=== PATIENT | male | born 1955 | race African-American/Black ===

== ENCOUNTER 2024-06-05 05:48 | Emergency (ER) | payer MEDICARE, OTHER ==
[2024-06-05 05:58] VITALS: TEMP 97.9
--- NOTE | 2024-06-05 06:09 | ED ---
Skin/Abscess/FB HPI - General Chief complaint: Skin/Abscess/Foreign Body Stated complaint: Lip Infection Time Seen by Provider: 06/05/24 05:58 Source: patient, RN notes reviewed Mode of arrival: ambulatory Limitations: no limitations - History of Present Illness Initial comments: 68-year-old male presents emergency department with chief complaint of lip swelling, infection. He states that he had a sore on it which caused his lip to swell and he has an open wound. He states that there is some drainage from the wound. He denies any blood pressure medication which includes lisinopril or losartan. Patient states he also has a red spot on his chest by his left nipple. States no drainage states that sore to the touch but states its at the surface. Patient denies any fevers or chills no difficulty swallowing no other associated symptoms. - Related Data Home Medications Medication Instructions Recorded Confirmed Asthmatic Twist 1 puff INHALATION BID 05/26/15 05/26/15 Inhaler(Unknowndose) HYDROcodone/APAP 10-325MG [[place] 1 each PO TID PRN 05/26/15 05/26/15 10] Ibuprofen [Motrin] 200 - 400 mg PO Q6HR PRN 05/26/15 05/26/15 Insulin Glargine [Lantus] 20 unit SQ HS 05/26/15 05/26/15 Insulin Lispro [humaLOG Kwikpen] 0 units SQ TID-W/MEALS PRN 05/26/15 05/26/15 Ipratropium/Albuterol Sulfate 1 puff INHALATION QID 05/26/15 05/26/15 [Combivent Respimat Inhaler] Multivitamins, Thera [Theragran] 1 each PO DAILY 05/26/15 05/26/15 Omeprazole [PriLOSEC] 20 mg PO BID 05/26/15 05/26/15 carvediloL [Coreg] 3.125 mg PO BID 05/26/15 05/26/15 cloNIDine HCL [Catapres] 0.1 mg PO TID 05/26/15 05/26/15 Previous Rx's Medication Instructions Recorded clindamycin HCL 300 mg PO QID #40 cap 06/05/24 Allergies Allergy/AdvReac Type Severity Reaction Status Date / Time morphine Allergy Unknown Itching Verified 06/05/24 05:58 tramadol Allergy Unknown Itching Verified 06/05/24 05:58 Review of Systems ROS Statement: Those systems with pertinent positive or pertinent negative responses have been documented in the HPI. ROS Other: All systems not noted in ROS Statement are negative. Past Medical History Past Medical History: Chest Pain / Angina, Diabetes Mellitus, GERD/Reflux, Hypertension Additional Past Medical History / Comment(s): BACK PAIN, POSITIVE FOR BLOOD IN STOOL., SLIGHT [place]OSS. History of Any Multi-Drug Resistant Organisms: None Reported Past Surgical History: Hernia Repair Additional Past Surgical History / Comment(s): NASAL SURGERY, RT ANKLE PINS & SCREWS. Past Anesthesia/Blood Transfusion Reactions: No Reported Reaction Past Psychological History: Depression Past Alcohol Use History: Occasional Past Drug Use History: None Reported - Past Family History Mother Family Medical History: No Reported History General Exam Limitations: no limitations General appearance: alert, in no apparent distress Head exam: Present: atraumatic, normocephalic, normal inspection Eye exam: Present: normal appearance, PERRL, EOMI. Absent: scleral icterus, conjunctival injection, periorbital swelling ENT exam: Present: mucous membranes moist. Absent: normal oropharynx (Swollen lower lip with large open wound on the right side of the lower lip extending from the exterior to the anterior aspect no other lesions are noted no swelling of the tongue, submandibular region or posterior pharynx) Neck exam: Present: normal inspection, full ROM. Absent: tenderness, meningismus, lymphadenopathy Respiratory exam: Present: normal lung sounds bilaterally. Absent: respiratory distress, wheezes, rales, rhonchi, stridor Cardiovascular Exam: Present: regular rate, normal rhythm, normal heart sounds. Absent: systolic murmur, diastolic murmur, rubs, gallop, clicks Skin exam: Present: warm, dry, intact, normal color, other (1 cm abscess left chest 4 to 5 o'clock position firm, nonfluctuant). Absent: rash Course Vital Signs 06/05/24 06/05/24 05:56 06:16 Temperature 97.9 F Pulse Rate 85 80 Respiratory 18 16 Rate Blood Pressure 149/76 158/84 O2 Sat by Pulse 98 100 Oximetry Medical Decision Making - Medical Decision Making Was pt. sent in by a medical professional or institution (, PA, AMBULETTE DRIVER, urgent care, hospital, or halfway...) When possible be specific @ -No Did you speak to anyone other than the patient for history (EMS, parent, family, police, friend...)? What history was obtained from this source @ -No Did you review nursing and triage notes (agree or disagree)? Why? @ -I reviewed and agree with nursing and triage notes Were old charts reviewed (outside hosp., previous admission, EMS record, old EKG, old radiological studies, urgent care reports/EKG's, halfway records)? Report findings @ -No old charts were reviewed Differential Diagnosis (chest pain, altered mental status, abdominal pain women, abdominal pain men, vaginal bleeding, weakness, fever, dyspnea, syncope, headache, dizziness, GI bleed, back pain, seizure, CVA, palpatations, mental health, musculoskeletal)? @ -Angioedema, abscess, laceration, herpes zoster, abscess EKG interpreted by me (3pts min.). @ -None X-rays interpreted by me (1pt min.). @ -None done CT interpreted by me (1pt min.). @ -None done U/S interpreted by me (1pt. min.). @ -None done What testing was considered but not performed or refused? (CT, X-rays, U/S, labs)? Why? @ -None What meds were considered but not given or refused? Why? @ -None Did you discuss the management of the patient with other professionals (professionals i.e. , PA, AMBULETTE DRIVER, lab, RT, psych nurse, vp digital marketing social media and crm, jute bag cutting machine operator, teacher, logistics supply officer, community case manager)? Give summary @ -No Was smoking cessation discussed for >3mins.? @ -No Was critical care preformed (if so, how long)? @ -No Were there social determinants of health that impacted care today? How? (Homelessness, low income, unemployed, alcoholism, drug addiction, transportation, low edu. Level, literacy, decrease access to med. care, assisted, rehab)? @ -No Was there de-escalation of care discussed even if they declined (Discuss DNR or withdrawal of care, Hospice)? DNR status @ -No What co-morbidities impacted this encounter? (DM, HTN, Smoking, COPD, CAD, Cancer, CVA, ARF, Chemo, Hep., AIDS, mental health diagnosis, sleep apnea, morbid obesity)? @ -None Was patient admitted / discharged? Hospital course, mention meds given and route, prescriptions, significant lab abnormalities, going to OR and other pertinent info. @ -Discharged patient has a open wound, sore on his lower lip causing swelling appears to be underlying infection was started on clindamycin he also has what appears to be a 1 cm abscess nonfluctuant left-sided chest we discussed possibility and concern for breast cancer but felt less likely needs to have recheck in 48 hours possible ultrasound. Patient agrees to this plan. Undiagnosed new problem with uncertain prognosis? @ -No Drug Therapy requiring intensive monitoring for toxicity (Heparin, Nitro, Insulin, Cardizem)? @ -No Were any procedures done? @ -No Diagnosis/symptom? @ -Lower lip infection, cellulitis, abscess chest Acute, or Chronic, or Acute on Chronic? @ -Acute Uncomplicated (without systemic symptoms) or Complicated (systemic symptoms)? @ -Uncomplicated Side effects of treatment? @ -No Exacerbation, Progression, or Severe Exacerbation? @ -No Poses a threat to life or bodily function? How? (Chest pain, [place], [place], pneumonia, PE, COPD, DKA, ARF, appy, cholecystitis, CVA, Diverticulitis, Homicidal, Suicidal, threat to staff... and all critical care pts) @ -No Disposition Clinical Impression: Cellulitis of skin of lip, Open wound of lip, Abscess of chest wall Disposition: HOME SELF-CARE Condition: Stable Instructions (If sedation given, give patient instructions): Abscess (ED) Additional Instructions: Please return to the Emergency Department if symptoms worsen or any other concerns. Prescriptions: clindamycin HCL 300 mg PO QID #40 cap Is patient prescribed a controlled substance at d/c from ED?: No Referrals: [facility] [Primary Care Provider] - 1-2 days Time of Disposition: 06:09
[2024-06-05 06:18] VITALS: BP 158/84; PULSE 80; RESP 16
== END 2024-06-05 06:16 | disposition home or self-care (01) ==
LOC: EC 05:48
DX: S01.501A Unspecified open wound of lip, initial encounter (principal); L02.213 Cutaneous abscess of chest wall; L03.211 Cellulitis of face; Z88.5 Allergy status to narcotic agent; Z88.8 Allergy status to other drugs, medicaments and biological substances; X58.XXXA Exposure to other specified factors, initial encounter
CPT/HCPCS: 99283

== ENCOUNTER 2024-11-13 06:35 | Inpatient (IN) | payer MEDICARE ==
[2024-11-13 06:40] LABS: Glucose,Whole Blood >600 mg/dL (70-110)
--- NOTE | 2024-11-13 06:40 | ED ---
General Adult HPI <Johny Ren - Last Filed: 11/13/24 06:49> - General Source: family, RN notes reviewed, old records reviewed <Danie Hui - Last Filed: 11/13/24 14:06> - General Stated complaint: Stroke Time Seen by Provider: 11/13/24 06:36 - History of Present Illness Initial comments: Dictation was produced using Talknote dictation software. please excuse any gramma tical, word or spelling errors. Chief Complaint: 69-year-old male presents to the emergency department with altered mental status History of Present Illness: Patient 69-year-old male with unknown medical history. History present illness obtained from EMS. Patient was allegedly seen last normal last night. Unclear what time patient went to bed. EMS spoke with states that this morning he was found to be altered. He was found on the ground and very confused. He is allegedly alert and oriented x 4 at baseline. He does have medical problems however and EMS did not know what his symptoms are. Apparently he is not compliant with his medications. Patient confused not a good historian Unable to obtain ROS secondary to mental status (Johny Ren) - Related Data Home Medications Medication Instructions Recorded Confirmed No Known Home Medications 11/13/24 11/13/24 Allergies Allergy/AdvReac Type Severity Reaction Status Date / Time morphine Allergy Unknown Itching Verified 11/13/24 09:47 tramadol Allergy Unknown Itching Verified 11/13/24 09:47 Review of Systems ROS Other: All systems not noted in ROS Statement are negative. <Johny Ren - Last Filed: 11/13/24 06:49> ROS Other: All systems not noted in ROS Statement are negative. <Danie Hui - Last Filed: 11/13/24 14:06> ROS Statement: Those systems with pertinent positive or pertinent negative responses have been documented in the HPI. Past Medical History Past Medical History: Chest Pain / Angina, Diabetes Mellitus, GERD/Reflux, Hypertension Additional Past Medical History / Comment(s): BACK PAIN, POSITIVE FOR BLOOD IN STOOL., SLIGHT LAC [place]. History of Any Multi-Drug Resistant Organisms: None Reported Past Surgical History: Hernia Repair Additional Past Surgical History / Comment(s): NASAL SURGERY, RT ANKLE PINS & SCREWS. Past Anesthesia/Blood Transfusion Reactions: No Reported Reaction Past Psychological History: Depression Past Alcohol Use History: Occasional Past Drug Use History: None Reported - Past Family History Mother Family Medical History: No Reported History <Johny Ren - Last Filed: 11/13/24 06:49> General Exam <Johny Ren - Last Filed: 11/13/24 06:49> - General Exam Comments Initial Comments: PHYSICAL EXAM: General Impression: Alert and oriented x3, not in acute distress HEENT: Normocephalic atraumatic, extra-ocular movements intact, pupils equal and reactive to light bilaterally, mucous membranes moist. Cardiovascular: Heart regular rate and rhythm Chest: Able to complete full sentences, no retractions, no tachypnea Abdomen: abdomen soft, non-tender, non-distended, no organomegaly Musculoskeletal: Pulses present and equal in all extremities, no peripheral edema Motor: no focal deficits noted Neurological: CN II-XII grossly intact, drift of the left arm, no effort to gravity of the bilateral lower extremities, he is aphasic and mildly dysarthric. NIH score of 10 Skin: Intact with no visualized rashes Psych: Normal affect and mood (Johny Ren) Course <Johny Ren - Last Filed: 11/13/24 06:49> Vital Signs 11/13/24 11/13/24 11/13/24 06:37 07:50 08:15 Temperature 97.5 F L 97.4 F L 97.6 F Pulse Rate 113 H 101 H 97 Respiratory 20 22 24 Rate Blood Pressure 118/68 123/71 115/72 O2 Sat by Pulse 100 98 96 Oximetry 11/13/24 11/13/24 11/13/24 09:09 09:18 09:29 Temperature 97.6 F Pulse Rate 96 101 H 103 H Respiratory 28 H Rate Blood Pressure 118/66 O2 Sat by Pulse 98 Oximetry 11/13/24 11/13/24 11/13/24 10:00 11:26 12:05 Temperature 97.6 F 97.4 F L 97.6 F Pulse Rate 110 H 107 H 105 H Respiratory 24 14 24 Rate Blood Pressure 131/81 101/73 116/82 O2 Sat by Pulse 97 98 96 Oximetry 11/13/24 13:01 Temperature 97.5 F L Pulse Rate 105 H Respiratory 24 Rate Blood Pressure 105/71 O2 Sat by Pulse 97 Oximetry - Reevaluation(s) Reevaluation #1: 11/13/24 06:[address] Hensley at 6:41 AM. Patient not a candidate for thrombolytics. (Johny Ren) Procedures - Restraint - Face to Face Restraint Occurrence 1 Patient's Immediate Situation: Endangers self safety Patient's Reaction to the Intervention: Uncooperative Patient's Medical & Behavioral Condition: Awake, Alert Need to Continue or Terminate Restraint or Seclusion: Continue Face to Face Eval of Restraint Date: 11/13/24 Face to Face Eval of Restraint Time: 08:20 <Danie Hui - Last Filed: 11/13/24 14:06> Medical Decision Making <Johny Ren - Last Filed: 11/13/24 06:49> - Lab Data Result diagrams: 11/13/24 06:39 11/13/24 12:18 <Danie Hui - Last Filed: 11/13/24 14:06> - Medical Decision Making Was pt. sent in by a medical professional or institution (, PA, [employer] BUSINESS OBJECTS DEVELOPER, urgent care, hospital, or [place] [facility] [place]...) When possible be specific @ -No Did you speak to anyone other than the patient for history (EMS, parent, family, police, friend...)? What history was obtained from this source @ -EMS as described above. History obtained from the at the bedside. She appeared to be inebriated as well. Not quite a reliable historian however she states she did notice him altered this morning. She states she has history of diabetes ran out of his diabetes medications. States that he takes shots for his diabetes. Did you review nursing and triage notes (agree or disagree)? Why? @ -I reviewed and agree with nursing and triage notes Were old charts reviewed (outside hosp., previous admission, EMS record, old EKG, old radiological studies, urgent care reports/EKG's, [place] [facility] facility records)? Report findings @ -No old charts were reviewed Differential Diagnosis (chest pain, altered mental status, abdominal pain women, abdominal pain men, vaginal bleeding, musculoskeletal, weakness, fever, dyspnea, syncope, headache, dizziness, GI bleed, back pain, seizure, CVA, palpatations, mental health)? @ - Differential CVA: Ischemic stroke, hemorrhagic stroke, brain tumor, atypical migraine, Wernicke's encephalopathy, seizure, multiple sclerosis, meningitis, encephalitis, hypoglycemia, Guillain-Willard, electrolytes disturbance, myasthenia gravis.... This is not meant to be an all-inclusive list EKG interpreted by me (3pts min.). @ - X-rays interpreted by me (1pt min.). @ - CT interpreted by me (1pt min.). @ - U/S interpreted by me (1pt. min.). @ -None done What testing was considered but not performed or refused? (CT, X-rays, U/S, labs)? Why? @ -None What meds were considered but not given or refused? Why? @ -None Was smoking cessation discussed for >3mins.? @ -No Were there social determinants of health that impacted care today? How? (Homelessness, low income, unemployed, alcoholism, drug addiction, transportation, low edu. Level, literacy, decrease access to med. care, [facility], rehab)? @ -No Was there de-escalation of care discussed even if they declined (Discuss DNR or withdrawal of care, Hospice)? DNR status @ -No What co-morbidities impacted this encounter? (DM, HTN, Smoking, COPD, CAD, Cancer, CVA, ARF, Chemo, Hep., AIDS, mental health diagnosis, sleep apnea, morbid obesity)? @ -None Was patient admitted / discharged? Hospital course, mention meds given and route, prescriptions, significant lab abnormalities, going to OR and other pertinent info. @ -69-year-old male presents with altered mental status. Last known well was last night. Unclear what time that was. Vital signs upon arrival are within acceptable limits. Patient symptomatology concerning for acute CVA. Code stroke paged. Keep patient given NIH score of 2. Is not a candidate for thrombolytics due to unclear time of onset likely longer than 4-1/2 hours. Patient care signed out to Dr. Hui at 7 AM Did you discuss the management of the patient with other professionals (professionals i.e. , PA, [employer] BUSINESS OBJECTS DEVELOPER, lab, RT, psych nurse, sr. social media & mobile manager, roster clerk, teacher, chief sales officer, foster care case manager)? Give summary @ -No Was critical care preformed (if so, how long)? @ -Yes, 33 minutes Undiagnosed new problem with uncertain prognosis? @ -No Drug Therapy requiring intensive monitoring for toxicity (Heparin, Nitro, Insulin, Cardizem)? @ -No Were any procedures done? @ -No Diagnosis/symptom? Acute, or Chronic, or Acute on Chronic? Uncomplicated (without systemic symptoms) or Complicated (systemic symptoms)? @ -Altered mental status Side effects of treatment? @ -No Exacerbation, Progression, or Severe Exacerbation? @ -No Poses a threat to life or bodily function? How? (Chest pain, USA, DC, pneumonia, PE, COPD, DKA, ARF, appy, cholecystitis, CVA, Diverticulitis, Homicidal, Suicidal, threat to staff... and all critical care pts) @ -yes (Johny Ren) Patient signed out to me pending results of workup. Briefly, patient presented as a code stroke activated by the previous provider. Patient awoke with nonfocal deficits. Was not a tenecteplase candidate. Previous provider spoke with on-call neuro interventionalist Dr. Hensley. In agreement plan for CT and CTA. Patient also found to have a hyperglycemia in the setting of diabetes that is insulin dependent greater than 600. Vitals were within acceptable limits. I spoke with Dr. Hensley who contacted me following CT brain as well as CT angiogram of the head and neck completion. He reviewed both images and stated there is no large vessel occlusion or obvious CVA at this time. Recommended medical admission with aspirin and Lipitor and neurology consultation. CT brain and CTA of the head and neck interpreted by myself as well and I agree with Dr. Hensley's findings. Chest x-ray interpreted myself which reveals possible atypical pneumonia. Laboratory studies returned remarkable for a Accu- Chek with a sugar greater than 600, hemoconcentration with an elevated white blood cell count, hematocrit. There is a delay in obtaining remainder of laboratory studies as the patient's blood work hemolyzed.Patient's labs eventually returned remarkable for leukocytosis of 17 likely secondary to hemoconcentration as the patient does appear clinically extremely dehydrated. Patient is hyperkalemic with a potassium of 7.2, and acute renal failure with a BUN of 163 and creatinine 4.48. Blood sugar is 1276. Acetone negative. Negati ve ketones in the urine. Patient is not significantly acidotic at this time. Patient started on the HHS protocol, as it does appear that the patient has hyperosmolar hyperglycemic state with acute renal failure and hyperkalemia. Patient given hyperkalemia cocktail. I contacted nephrology, Dr. Mcgraw who was in agreement with the plan. Will continue to monitor. I contacted the ICU attending, Dr. Kraft who accepted the patient to the ICU. Patient's mental status is intermittently improved. He is refusing Puente catheter placement. Patient empirically placed on antibiotics for the pneumonia that is present. Patient does have an elevated lactic acid likely secondary to dehydration and less likely secondary to infection. I spoke with the admitting provider, Dr. Morrissey who accepted the admission. Patient admitted to the ICU in serious condition. Family is updated. Neurology also consulted due to stroke activation and altered mental status. Diagnosis/symptom? @ -Hyperkalemia, acute renal failure, HHS, altered mental status, pneumonia Acute, or Chronic, or Acute on Chronic? @ -Acute Uncomplicated (without systemic symptoms) or Complicated (systemic symptoms)? @ -Complicated Side effects of treatment? @ -None Exacerbation, Progression, or Severe Exacerbation] @ -No Poses a threat to life or bodily function? @ -Yes (Danie Hui) - Lab Data Lab Results 11/13/24 11/13/24 11/13/24 Range/Units 06:39 06:39 06:39 WBC 17.6 H (3.8-10.6) k/uL RBC 5.65 (4.30-5.90) m/uL Hgb 17.0 (13.0-17.5) gm/dL Hct 57.9 H* (39.0-53.0) % MCV 102.5 H (80.0-100.0) fL MCH 30.0 (25.0-35.0) pg MCHC 29.3 L (31.0-37.0) g/dL RDW 13.4 (11.5-15.5) % Plt Count 139 L (150-450) k/uL MPV 13.3 Neutrophils % 86 % Lymphocytes % 7 % Monocytes % 5 % Eosinophils % 1 % Basophils % 0 % Neutrophils # 15.1 H (1.3-7.7) k/uL Lymphocytes # 1.3 (1.0-4.8) k/uL Monocytes # 1.0 (0-1.0) k/uL Eosinophils # 0.2 (0-0.7) k/uL Basophils # 0.1 (0-0.2) k/uL Hypochromasia Marked Macrocytosis Slight PT 13.7 H (10.0-12.5) sec INR 1.3 H (<1.2) APTT 24.0 (22.0-30.0) sec VBG pH (7.31-7.41) VBG pCO2 (37-51) mmHg VBG HCO3 (24-28) mmol/L Sodium (137-145) mmol/L Potassium (3.5-5.1) mmol/L Chloride (98-107) mmol/L Carbon Dioxide (22-30) mmol/L Anion Gap mmol/L BUN (9-20) mg/dL Creatinine (0.66-1.25) mg/dL Est GFR (CKD-EPI)AfAm (>60 ml/min/1.73 sqM) Est GFR (CKD-EPI)NonAf (>60 ml/min/1.73 sqM) Glucose (74-99) mg/dL POC Glucose (mg/dL) >600 H* (70-110) mg/dL POC Glu Bee Robber ID Burgess Ledesma Lactic Ac Sepsis Rflx Plasma Lactic Acid Evaristo (0.7-2.0) mmol/L Calcium (8.4-10.2) mg/dL Total Bilirubin (0.2-1.3) mg/dL AST (17-59) U/L ALT (4-49) U/L Alkaline Phosphatase (38-126) U/L Ammonia (<30) umol/L Creatine Kinase (55-170) U/L Troponin I (0.000-0.034) ng/mL NT-Pro-B Natriuret Pep pg/mL Total Protein (6.3-8.2) g/dL Albumin (3.5-5.0) g/dL Urine Color Urine Appearance (Clear) Urine pH (5.0-8.0) Ur Specific [place] (1.001-1.035) Urine Protein (Negative) Urine Glucose (UA) (Negative) Urine Ketones (Negative) Urine Blood (Negative) Urine Nitrite (Negative) Urine Bilirubin (Negative) Urine Urobilinogen (<2.0) mg/dL Ur Leukocyte Esterase (Negative) Urine Opiates Screen (NotDetected) Ur Oxycodone Screen (NotDetected) Urine Methadone Screen (NotDetected) Ur Barbiturates Screen (NotDetected) U Tricyclic Antidepress (NotDetected) Ur Phencyclidine Scrn (NotDetected) Ur Amphetamines Screen (NotDetected) U Methamphetamines Scrn (NotDetected) U Benzodiazepines Scrn (NotDetected) Urine Cocaine Screen (NotDetected) U Marijuana (THC) Screen (NotDetected) Serum Alcohol mg/dL Acetone, Qual (Negative) Influenza Type A (PCR) (Not Detectd) Influenza Type B (PCR) (Not Detectd) RSV (PCR) (Not Detectd) SARS-CoV-2 (PCR) (Not Detectd) 11/13/24 11/13/24 11/13/24 Range/Units 06:39 07:34 07:40 WBC (3.8-10.6) k/uL RBC (4.30-5.90) m/uL Hgb (13.0-17.5) gm/dL Hct (39.0-53.0) % MCV (80.0-100.0) fL MCH (25.0-35.0) pg MCHC (31.0-37.0) g/dL RDW (11.5-15.5) % Plt Count (150-450) k/uL MPV Neutrophils % % Lymphocytes % % Monocytes % % Eosinophils % % Basophils % % Neutrophils # (1.3-7.7) k/uL Lymphocytes # (1.0-4.8) k/uL Monocytes # (0-1.0) k/uL Eosinophils # (0-0.7) k/uL Basophils # (0-0.2) k/uL Hypochromasia Macrocytosis PT (10.0-12.5) sec INR (<1.2) APTT (22.0-30.0) sec VBG pH (7.31-7.41) VBG pCO2 (37-51) mmHg VBG HCO3 (24-28) mmol/L Sodium 140 (137-145) mmol/L Potassium 7.2 H* (3.5-5.1) mmol/L Chloride 93 L (98-107) mmol/L Carbon Dioxide 26 (22-30) mmol/L Anion Gap 21 mmol/L BUN 163 H* (9-20) mg/dL Creatinine 4.48 H (0.66-1.25) mg/dL Est GFR (CKD-EPI)AfAm 14 (>60 ml/min/1.73 sqM) Est GFR (CKD-EPI)NonAf 12 (>60 ml/min/1.73 sqM) Glucose 1276 H* (74-99) mg/dL POC Glucose (mg/dL) (70-110) mg/dL POC Glu Bee Robber ID Lactic Ac Sepsis Rflx Plasma Lactic Acid Evaristo 3.8 H* (0.7-2.0) mmol/L Calcium 11.7 H (8.4-10.2) mg/dL Total Bilirubin 0.8 (0.2-1.3) mg/dL AST 24 (17-59) U/L ALT 23 (4-49) U/L Alkaline Phosphatase 113 (38-126) U/L Ammonia <9 (<30) umol/L Creatine Kinase 332 H (55-170) U/L Troponin I (0.000-0.034) ng/mL NT-Pro-B Natriuret Pep 215 pg/mL Total Protein 7.9 (6.3-8.2) g/dL Albumin 4.7 (3.5-5.0) g/dL Urine Color Urine Appearance (Clear) Urine pH (5.0-8.0) Ur Specific [place] (1.001-1.035) Urine Protein (Negative) Urine Glucose (UA) (Negative) Urine Ketones (Negative) Urine Blood (Negative) Urine Nitrite (Negative) Urine Bilirubin (Negative) Urine Urobilinogen (<2.0) mg/dL Ur Leukocyte Esterase (Negative) Urine Opiates Screen (NotDetected) Ur Oxycodone Screen (NotDetected) Urine Methadone Screen (NotDetected) Ur Barbiturates Screen (NotDetected) U Tricyclic Antidepress (NotDetected) Ur Phencyclidine Scrn (NotDetected) Ur Amphetamines Screen (NotDetected) U Methamphetamines Scrn (NotDetected) U Benzodiazepines Scrn (NotDetected) Urine Cocaine Screen (NotDetected) U Marijuana (THC) Screen (NotDetected) Serum Alcohol <10 mg/dL Acetone, Qual Negative (Negative) Influenza Type A (PCR) Not Detected (Not Detectd) Influenza Type B (PCR) Not Detected (Not Detectd) RSV (PCR) Not Detected (Not Detectd) SARS-CoV-2 (PCR) Not Detected (Not Detectd) 11/13/24 11/13/24 11/13/24 Range/Units 07:40 08:08 08:32 WBC (3.8-10.6) k/uL RBC (4.30-5.90) m/uL Hgb (13.0-17.5) gm/dL Hct (39.0-53.0) % MCV (80.0-100.0) fL MCH (25.0-35.0) pg MCHC (31.0-37.0) g/dL RDW (11.5-15.5) % Plt Count (150-450) k/uL MPV Neutrophils % % Lymphocytes % % Monocytes % % Eosinophils % % Basophils % % Neutrophils # (1.3-7.7) k/uL Lymphocytes # (1.0-4.8) k/uL Monocytes # (0-1.0) k/uL Eosinophils # (0-0.7) k/uL Basophils # (0-0.2) k/uL Hypochromasia Macrocytosis PT (10.0-12.5) sec INR (<1.2) APTT (22.0-30.0) sec VBG pH 7.26 L (7.31-7.41) VBG pCO2 64 H (37-51) mmHg VBG HCO3 28 (24-28) mmol/L Sodium (137-145) mmol/L Potassium (3.5-5.1) mmol/L Chloride (98-107) mmol/L Carbon Dioxide (22-30) mmol/L Anion Gap mmol/L BUN (9-20) mg/dL Creatinine (0.66-1.25) mg/dL Est GFR (CKD-EPI)AfAm (>60 ml/min/1.73 sqM) Est GFR (CKD-EPI)NonAf (>60 ml/min/1.73 sqM) Glucose (74-99) mg/dL POC Glucose (mg/dL) (70-110) mg/dL POC Glu Bee Robber ID Lactic Ac Sepsis Rflx Y Plasma Lactic Acid Evaristo (0.7-2.0) mmol/L Calcium (8.4-10.2) mg/dL Total Bilirubin (0.2-1.3) mg/dL AST (17-59) U/L ALT (4-49) U/L Alkaline Phosphatase (38-126) U/L Ammonia (<30) umol/L Creatine Kinase (55-170) U/L Troponin I 0.027 (0.000-0.034) ng/mL NT-Pro-B Natriuret Pep pg/mL Total Protein (6.3-8.2) g/dL Albumin (3.5-5.0) g/dL Urine Color Urine Appearance (Clear) Urine pH (5.0-8.0) Ur Specific [place] (1.001-1.035) Urine Protein (Negative) Urine Glucose (UA) (Negative) Urine Ketones (Negative) Urine Blood (Negative) Urine Nitrite (Negative) Urine Bilirubin (Negative) Urine Urobilinogen (<2.0) mg/dL Ur Leukocyte Esterase (Negative) Urine Opiates Screen (NotDetected) Ur Oxycodone Screen (NotDetected) Urine Methadone Screen (NotDetected) Ur Barbiturates Screen (NotDetected) U Tricyclic Antidepress (NotDetected) Ur Phencyclidine Scrn (NotDetected) Ur Amphetamines Screen (NotDetected) U Methamphetamines Scrn (NotDetected) U Benzodiazepines Scrn (NotDetected) Urine Cocaine Screen (NotDetected) U Marijuana (THC) Screen (NotDetected) Serum Alcohol mg/dL Acetone, Qual (Negative) Influenza Type A (PCR) (Not Detectd) Influenza Type B (PCR) (Not Detectd) RSV (PCR) (Not Detectd) SARS-CoV-2 (PCR) (Not Detectd) 11/13/24 11/13/24 11/13/24 Range/Units 08:39 08:39 10:00 WBC (3.8-10.6) k/uL RBC (4.30-5.90) m/uL Hgb (13.0-17.5) gm/dL Hct (39.0-53.0) % MCV (80.0-100.0) fL MCH (25.0-35.0) pg MCHC (31.0-37.0) g/dL RDW (11.5-15.5) % Plt Count (150-450) k/uL MPV Neutrophils % % Lymphocytes % % Monocytes % % Eosinophils % % Basophils % % Neutrophils # (1.3-7.7) k/uL Lymphocytes # (1.0-4.8) k/uL Monocytes # (0-1.0) k/uL Eosinophils # (0-0.7) k/uL Basophils # (0-0.2) k/uL Hypochromasia Macrocytosis PT (10.0-12.5) sec INR (<1.2) APTT (22.0-30.0) sec VBG pH (7.31-7.41) VBG pCO2 (37-51) mmHg VBG HCO3 (24-28) mmol/L Sodium (137-145) mmol/L Potassium (3.5-5.1) mmol/L Chloride (98-107) mmol/L Carbon Dioxide (22-30) mmol/L Anion Gap mmol/L BUN (9-20) mg/dL Creatinine (0.66-1.25) mg/dL Est GFR (CKD-EPI)AfAm (>60 ml/min/1.73 sqM) Est GFR (CKD-EPI)NonAf (>60 ml/min/1.73 sqM) Glucose (74-99) mg/dL POC Glucose (mg/dL) >600 H* (70-110) mg/dL POC Glu Bee Robber ID Dagoberto Newby Lactic Ac Sepsis Rflx Plasma Lactic Acid Evaristo (0.7-2.0) mmol/L Calcium (8.4-10.2) mg/dL Total Bilirubin (0.2-1.3) mg/dL AST (17-59) U/L ALT (4-49) U/L Alkaline Phosphatase (38-126) U/L Ammonia (<30) umol/L Creatine Kinase (55-170) U/L Troponin I (0.000-0.034) ng/mL NT-Pro-B Natriuret Pep pg/mL Total Protein (6.3-8.2) g/dL Albumin (3.5-5.0) g/dL Urine Color Colorless Urine Appearance Clear (Clear) Urine pH 5.5 (5.0-8.0) Ur Specific [place] 1.029 (1.001-1.035) Urine Protein Negative (Negative) Urine Glucose (UA) 4+ H (Negative) Urine Ketones Negative (Negative) Urine Blood Negative (Negative) Urine Nitrite Negative (Negative) Urine Bilirubin Negative (Negative) Urine Urobilinogen <2.0 (<2.0) mg/dL Ur Leukocyte Esterase Negative (Negative) Urine Opiates Screen Not Detected (NotDetected) Ur Oxycodone Screen Not Detected (NotDetected) Urine Methadone Screen Not Detected (NotDetected) Ur Barbiturates Screen Not Detected (NotDetected) U Tricyclic Antidepress Not Detected (NotDetected) Ur Phencyclidine Scrn Not Detected (NotDetected) Ur Amphetamines Screen Not Detected (NotDetected) U Methamphetamines Scrn Not Detected (NotDetected) U Benzodiazepines Scrn Not Detected (NotDetected) Urine Cocaine Screen Detected H (NotDetected) U Marijuana (THC) Screen Not Detected (NotDetected) Serum Alcohol mg/dL Acetone, Qual (Negative) Influenza Type A (PCR) (Not Detectd) Influenza Type B (PCR) (Not Detectd) RSV (PCR) (Not Detectd) SARS-CoV-2 (PCR) (Not Detectd) Disposition <Johny Ren - Last Filed: 11/13/24 06:49> Time of Disposition: 09:55 <Danie Hui - Last Filed: 11/13/24 14:06> Clinical Impression: Hyperosmolar hyperglycemic state (HHS), Acute renal failure (ARF), Pneumonia, Hyperkalemia, Altered mental status Disposition: ADMITTED IP TO THIS HOSP Condition: Serious
[2024-11-13 06:53] LABS: Basophils # (A) 0.1 k/uL (0-0.2); Basophils % (A) 0 %; Eosinophils # (A) 0.2 k/uL (0-0.7); Eosinophils % (A) 1 %; Hypochromasia Marked; Lymphocytes # (A) 1.3 k/uL (1.0-4.8); Lymphocytes % (A) 7 %; MCHC 29.3 g/dL (31.0-37.0); MCV 102.5 fL (80.0-100.0); Macrocytosis Slight; Mean Platelet Volume 13.3; Monocytes % (A) 5 %; Neutrophils # (A) 15.1 k/uL (1.3-7.7); Neutrophils % (A) 86 %; Platelet Count 139 k/uL (150-450); RBC 5.65 m/uL (4.30-5.90); RDW 13.4 % (11.5-15.5); WBC 17.6 k/uL (3.8-10.6)
[2024-11-13] MEDS: SODIUM CHLORIDE 0.9% 1,000 ML IV STA ×2 (06:54→07:59)
[2024-11-13 07:03] LABS: INR 1.3 (<1.2); Prothrombin Time 13.7 sec (10.0-12.5)
--- NOTE | 2024-11-13 07:14 | CT ---
EXAM: CT Head Without Intravenous Contrast CLINICAL HISTORY: ITS.REASON CT Reason: Neuro deficit, acute, stroke suspected TECHNIQUE: Axial computed tomography images of the head/brain without intravenous contrast. CTDI is 49.2 mGy and DLP is 1100.3 mGy-cm. This CT exam was performed using one or more of the following dose reduction techniques: automated exposure control, adjustment of the mA and/or kV according to patient size, and/or use of iterative reconstruction technique. COMPARISON: No relevant prior studies available. FINDINGS: Brain: Minimal confluent evidence changes are seen within the periventricular white matter. No hemorrhage. Ventricles: Unremarkable. No ventriculomegaly. Bones/joints: Unremarkable. No acute fracture. Soft tissues: Unremarkable. Sinuses: Unremarkable as visualized. No acute sinusitis. Mastoid air cells: Unremarkable as visualized. No mastoid effusion. IMPRESSION: Minimal chronic small vessel ischemic change. No acute intracranial findings. No intracranial hemorrhage.
--- NOTE | 2024-11-13 07:17 | XR ---
EXAMINATION TYPE: XR chest 1V portable DATE OF EXAM: 11/13/2024 7:12 AM COMPARISON: None CLINICAL INDICATION: Male, 69 years old with history of altered mental status, confusion, FINDINGS: Heart normal size. Medium and coarse diffuse reticular opacities throughout. No pleural effusion seen . IMPRESSION: Diffuse interstitial infiltrates. Some considerations include interstitial pulmonary edema, interstit ial pneumonitis, or atypical pneumonias. [facility], , 11/13/2024 7:15 AM
[2024-11-13 07:21] LABS: HCT 57.9 % (39.0-53.0)
--- NOTE | 2024-11-13 07:55 | CT ---
EXAMINATION TYPE: CT angio head neck DATE OF EXAM: 11/13/2024 7:21 AM COMPARISON: CT 11/13/2024 CLINICAL INDICATION: Male, 69 years old with history of Neuro deficit, acute, stroke suspected, confu yuval, Altered mental status, TECHNIQUE: Contiguous axial scanning of the head and neck performed with IV Contrast, patient injecte d with 65 mL of Isovue 370. Coronal/sagittal reconstructions performed. 3-D reconstructions generated on a dedicated independent workstation. CT DLP: 445 mGycm, Automated exposure control for dose reduction was used. FINDINGS: Neck: Moderate emphysematous changes in the visualized upper lungs. There seems to be mild circumferential wall thickening partially visualized mid thoracic esophagus. Conventional arch vessel branching anatomy. Small caliber of the bilateral vertebral arteries which are otherwise patent throughout their course. The left vertebral artery is slightly more dominant. Possible severe focal stenosis at the V3/V4 junction right vertebral artery, axial image 570. The bilateral common carotid arteries are patent. There is eccentric noncalcified plaque within the right carotid bulb contributing to a mild, less kajal n 25% narrowing by diagnostic criteria. The left common carotid artery stent. There is severe, 70% stenosis for a span of 1.0 to 1.5 cm upper left ICA, refer to thin cut axial hakeem ge 580 for example. Head: Dominant left vertebral artery. Persistent origin left posterior cerebral artery. Posterior circulation otherwise patent. Segmental mild atherosclerotic narrowing throughout the bilateral carotid siphons. Slightly hypoplast ic A1 segment left anterior cerebral artery. Otherwise, the anterior circulation is patent. No aneurysmal changes identified. IMPRESSION: NECK: 1. THE CHITIMACHA VERTEBRAL ARTERIES ARE SMALL IN CALIBER. THE LEFT VERTEBRAL ARTERY IS SLIGHTLY MORE DOM INANT. SEVERE FOCAL STENOSIS AT THE V3/V4 JUNCTION OF THE RIGHT VERTEBRAL ARTERY. 2. MILD, LESS THAN 25% PROXIMAL RIGHT ICA STENOSIS. 3. SEVERE, 70% STENOSIS FOR A SPAN OF 1.0 TO 1.5 CM INVOLVING THE UPPER LEFT ICA. 4. COPD WITH MODERATE EMPHYSEMA IN THE VISUALIZED LUNGS. 5. Mild circumferential wall thickening partially visualized mid thoracic esophagus. Correlate for an y symptoms of esophagitis. Direct visualization as clinically indicated. Head: 6. 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 7. Segmental mild atherosclerotic narrowing throughout the bilateral carotid siphons. 8. No large vessel intracranial arterial occlusion or aneurysmal changes seen. [facility], Workstation: [id number], 11/13/2024 7:52 AM
[2024-11-13] MEDS: ATORVASTATIN 40 MG TAB PO STA (08:00)
[2024-11-13] MEDS: ASPIRIN 325 MG TAB PO STA (08:00)
[2024-11-13 08:07] LABS: Lactic Acid, Venous 3.8 mmol/L (0.7-2.0)
[2024-11-13 08:15] LABS: ALT 23 U/L (4-49); AST 24 U/L (17-59); African American GFR (CKD) 14 (>60 ml/min/1.73 sqM); Albumin 4.7 g/dL (3.5-5.0); Alcohol <10 mg/dL; Alkaline Phosphatase 113 U/L (38-126); Anion Gap 21 mmol/L; Calcium 11.7 mg/dL (8.4-10.2); Carbon Dioxide 26 mmol/L (22-30); Chloride 93 mmol/L (98-107); Creatine Kinase 332 U/L (55-170); Non-African American GFR(CKD) 12 (>60 ml/min/1.73 sqM); Sodium 140 mmol/L (137-145); Total Bilirubin 0.8 mg/dL (0.2-1.3); Total Protein 7.9 g/dL (6.3-8.2)
[2024-11-13 08:22] LABS: NT-Pro-B-Type Natriuretic Pept 215 pg/mL
[2024-11-13] MEDS: AZITHROMYCIN 500 MG in SODIUM CHLORIDE 0.9% 250 ML IVPB STA (08:32)
[2024-11-13 08:41] LABS: Blood Urea Nitrogen 163 mg/dL (9-20)
[2024-11-13 08:41] LABS: VBG PH 7.26 (7.31-7.41)
[2024-11-13 08:42] LABS: Potassium 7.2 mmol/L (3.5-5.1)
[2024-11-13 08:44] LABS: Glucose 1276 mg/dL (74-99)
[2024-11-13] MEDS ORDERED: DEXTROSE 50% SYRINGE 50 ML IVP PRN (08:46)
[2024-11-13 08:58] LABS: Influenza A Not Detected (Not Detectd); Influenza B Not Detected (Not Detectd); RSV Not Detected (Not Detectd)
[2024-11-13 09:05] LABS: Appearance,Urine Clear (Clear); Bilirubin,Urine Negative (Negative); Blood,Urine Negative (Negative); Color,Urine Colorless; Glucose,Urine (UA) 4+ (Negative); Ketones,Urine Negative (Negative); Leukocyte Esterase,Urine Negative (Negative); Nitrite,Urine Negative (Negative); PH, Urine 5.5 (5.0-8.0); Protein,Urine Negative (Negative); Specific Gravity,Urine 1.029 (1.001-1.035); Urobilinogen,Urine <2.0 mg/dL (<2.0)
[2024-11-13] MEDS: SODIUM ZIRCONIUM CYCLOSILICATE 10 GM PACKET PO ONE (09:05)
[2024-11-13] MEDS: SODIUM BICARB 8.4% 50 ML SYR (1 MEQ/ML) IV ONE (09:07)
[2024-11-13] MEDS: INSULIN REGULAR BOLUS (FROM DRIP BAG) IV ONE (09:11)
[2024-11-13] MEDS: INSULIN REGULAR 100 UNIT in SODIUM CHLORIDE 0.9% 100 ML IV SCH (09:12)
[2024-11-13] MEDS: ALBUTEROL NEB (CONC) 2.5 MG/0.5 ML INHALATION ONE (09:15)
[2024-11-13 09:17] LABS: Cocaine Screen,Urine Detected (NotDetected); Phencyclidine Screen,Urine Not Detected (NotDetected); Urn Cannabinoid Scrn Not Detected (NotDetected)
[2024-11-13 09:18] LABS: Amphetamine Screen,Urine Not Detected (NotDetected); Barbiturate Screen,Urine Not Detected (NotDetected); Benzodiazepines Screen,Urine Not Detected (NotDetected); Methadone Screen, Urine Not Detected (NotDetected); Opiate Screen,Urine Not Detected (NotDetected); Oxycodone Screen, Urine Not Detected (NotDetected); Tricyclic Antidepressant,Urine Not Detected (NotDetected)
[2024-11-13] MEDS: SODIUM CHLORIDE 0.9% 1,000 ML IV SCH (09:19)
[2024-11-13] MEDS: CALCIUM GLUCONATE IN NACL 1 GM in SALINE 1 100ML.BAG IVPB ONE (09:37)
[2024-11-13 10:01] LABS: Glucose,Whole Blood >600 mg/dL (70-110)
[2024-11-13] MEDS ORDERED: NALOXONE 0.4 MG/ML 1 ML VIAL IV PRN (10:09)
[2024-11-13] MEDS ORDERED: PNEUMONIA PROTOCOL UTILIZED 1 EACH MISC PO PRN (10:12)
[2024-11-13 11:23] LABS: Glucose,Whole Blood >600 mg/dL (70-110)
[2024-11-13 12:07] LABS: Glucose,Whole Blood >600 mg/dL (70-110)
--- NOTE | 2024-11-13 12:34 | US ---
EXAMINATION TYPE: US kidneys/renal and bladder DATE OF EXAM: 11/13/2024 COMPARISON: NONE CLINICAL INDICATION: Male, 69 years old with history of LATOYA; Unable to obtain patient history due to AMS TECHNIQUE: Grayscale imaging of the bilateral kidneys and urinary bladder: FINDINGS: EXAM MEASUREMENTS: Right Kidney: 11.1 x 7.0 x 5.9 cm Left Kidney: 10.3 x 6.3 x 5.0 cm Post Void Residual Volume: NA mL Right Kidney: wnl, no evidence for hydronephrosis, mass or renal calculus. Left Kidney: wnl, no evidence for hydronephrosis, mass or renal calculus. Bladder: wnl Bilateral Jets seen: Not seen within a 5 minute time frame Normal Post Void Residual: NA Suboptimal study due to shadowing from overlying bowel gas. There is no evidence for hydronephrosis at this point in time. No nephrolithiasis is seen. No masses are identified. The urinary bladder i s adequately distended. IMPRESSION: Suboptimal study without hydronephrosis seen bilaterally. [facility], , 11/13/2024 12:32 PM
[2024-11-13 12:48] LABS: Potassium 5.6 mmol/L (3.5-5.1)
[2024-11-13 13:03] LABS: Glucose,Whole Blood >600 mg/dL (70-110)
[2024-11-13 13:30] LABS: African American GFR (CKD) 17 (>60 ml/min/1.73 sqM); Anion Gap 22 mmol/L; Carbon Dioxide 22 mmol/L (22-30); Chloride 108 mmol/L (98-107); Non-African American GFR(CKD) 15 (>60 ml/min/1.73 sqM); Phosphorus 4.1 mg/dL (2.5-4.5); Sodium 152 mmol/L (137-145)
[2024-11-13 13:42] LABS: Blood Urea Nitrogen 150 mg/dL (9-20); Glucose 731 mg/dL (74-99)
[2024-11-13 14:08] LABS: Glucose,Whole Blood >600 mg/dL (70-110)
--- NOTE | 2024-11-13 14:13 | P.HPIM ---
History of Present Illness H&P Date: 11/13/24 Patient is a 69-year-old male with history of diabetes presenting with altered mentation. Patient unable to provide any meaningful history. Per EMS report, patient was found sitting leaned up against the bed, was at bedside. She saw him last normal at the time of going to bed last night. feels also unsure about which medications he takes at home. Denied any drug use, alcohol use In the ED, temperature was 97.5, pulse 113, respiratory rate 20, saturating at 100% on room air, blood pressure 118/68. WBC 17.6, platelet 139, INR 1.3, pH 7.26, pCO2 64, potassium 7.2 came down to 5.6, creatinine 4.48, anion gap 21, glucose 1276, lactic acid 4.8, total calcium 11.7, CK3 32, troponin 0.027, BNP 215, ketones negative, urinalysis shows 4+ glucose, toxicology positive for bria jeaneth, respiratory viral panel negative. Head CT did not show any acute process. Chest x-ray independently interpreted, shows interstitial opacities bilateral. Head and neck CTA showed severe focal stenosis at the V3/V4 junction of the right vertebral artery, mild right ICA stenosis, severe 70% stenosis of left ICA. Renal ultrasound did not show any hydronephrosis. Patient admitted on insulin drip for HHS. Nephrology, pulmonology consulted. Patient also given IV antibiotics and IV fluids in the ER. Pertinent positives and negatives as discussed in HPI, a complete review of systems was performed and all other systems are negative. Patient seen and examined at bedside. Vital signs reviewed General: nontoxic, in mild distress, appears at stated age Derm: warm, dry Head: atraumatic, normocephalic, symmetric Eyes: EOMI, no lid lag, anicteric sclera, pupils equal round reactive to light ENT: Nose and ears atraumatic Neck: No thyromegaly, supple Mouth: no lip lesion, mucus membranes dry Cardiovascular: S1S2 reg, tachycardic, no murmur, no edema Lungs: clear to auscultation bilateral, no rhonchi, no rales, no wheeze, no accessory muscle use Abdominal: soft, nontender to palpation, no guarding, no appreciable organomegaly Ext: no gross muscle atrophy, no contractures Neuro: CN II-XII grossly intact Psych: Somnolent, orientedx1, appropriate affect Assessment/Plan: Hyperosmolar hyperglycemic state Type 2 diabetes Acute metabolic encephalopathy Acute kidney injury respiratory acidosis Lactic acidosis Mild hyperkalemia Mild rhabdomyolysis Uremia Hyperkalemia Severe dehydration Leukocytosis Mild thrombocytopenia Polysubstance use Carotid artery stenosis, focal vertebral artery stenosis COPD? -Continue normal saline at 200 cc an hour -Continue insulin drip, monitor blood sugars every hour -BMP every 4 hours -Empirically continue ceftriaxone 2 g IV every 24 hours, azithromycin 500 mg daily oral -Blood cultures, sputum cultures, Legionella urine antigen pending -ICU and nephrology consulted -Neurochecks, telemetry -Repeat labs tomorrow -Neurology already consulted, will also involve vascular surgery. The patient is admitted with an anticipated greater than 2 midnight stay as inpatient status for evaluation of HHS. Surrogate decision-maker: Spouse CODE STATUS: Full code DVT prophylaxis: Subcu heparin Anticipated discharge date: Pending clinical course Anticipated discharge place: Pending clinical course A total of 65 minutes was spent on the care of this complex patient more than 50% of the time was spent in counseling and care coordination. Past Medical History Past Medical History: Chest Pain / Angina, Diabetes Mellitus, GERD/Reflux, Hypertension Additional Past Medical History / Comment(s): BACK PAIN, POSITIVE FOR BLOOD IN STOOL., SLIGHT [place]OG[place]IUT. History of Any Multi-Drug Resistant Organisms: None Reported Past Surgical History: Hernia Repair Additional Past Surgical History / Comment(s): NASAL SURGERY, RT ANKLE PINS & SCREWS. Past Anesthesia/Blood Transfusion Reactions: No Reported Reaction Past Psychological History: Depression Past Alcohol Use History: Occasional Past Drug Use History: None Reported - Past Family History Mother Family Medical History: No Reported History Medications and Allergies Home Medications Medication Instructions Recorded Confirmed Type No Known Home Medications 11/13/24 11/13/24 History Allergies Allergy/AdvReac Type Severity Reaction Status Date / Time morphine Allergy Unknown Itching Verified 11/13/24 09:47 tramadol Allergy Unknown Itching Verified 11/13/24 09:47 Physical Exam Vitals: Vital Signs Temp Pulse Resp BP Pulse Ox 11/13/24 13:01 97.5 F L 105 H 24 105/71 97 11/13/24 12:05 97.6 F 105 H 24 116/82 96 11/13/24 11:26 97.4 F L 107 H 14 101/73 98 11/13/24 10:00 97.6 F 110 H 24 131/81 97 11/13/24 09:29 103 H 11/13/24 09:18 101 H 11/13/24 09:09 97.6 F 96 28 H 118/66 98 11/13/24 08:15 97.6 F 97 24 115/72 96 11/13/24 07:50 97.4 F L 101 H 22 123/71 98 11/13/24 06:37 97.5 F L 113 H 20 118/68 100 Intake and Output 11/12/24 11/13/24 11/13/24 22:59 06:59 14:59 Intake Total 30.381 Output Total 580 Balance -549.619 Intake: Intake, IV Titration 30.381 Amount Insulin Regular 100 unit 30.381 In Sodium Chloride 0.9% 100 ml @ 0.1 UNITS/KG/HR 10.537 mls/hr IV .[id number] [facility] Rx#:[id number] Output: Urine 580 Male - External 180 Other: Weight 104.326 kg Results CBC & Chem 7: 11/13/24 06:39 11/13/24 12:18 Labs: Abnormal Lab Results - Last 24 Hours (Table) 11/13/24 11/13/24 11/13/24 Range/Units 06:39 06:39 06:39 WBC 17.6 H (3.8-10.6) k/uL Hct 57.9 H* (39.0-53.0) % MCV 102.5 H (80.0-100.0) fL MCHC 29.3 L (31.0-37.0) g/dL Plt Count 139 L (150-450) k/uL Neutrophils # 15.1 H (1.3-7.7) k/uL PT 13.7 H (10.0-12.5) sec INR 1.3 H (<1.2) VBG pH (7.31-7.41) VBG pCO2 (37-51) mmHg Potassium (3.5-5.1) mmol/L Chloride (98-107) mmol/L BUN (9-20) mg/dL Creatinine (0.66-1.25) mg/dL Glucose (74-99) mg/dL POC Glucose (mg/dL) >600 H* (70-110) mg/dL Plasma Lactic Acid Evaristo (0.7-2.0) mmol/L Calcium (8.4-10.2) mg/dL Creatine Kinase (55-170) U/L Urine Glucose (UA) (Negative) Urine Cocaine Screen (NotDetected) 11/13/24 11/13/24 11/13/24 Range/Units 06:39 07:40 08:32 WBC (3.8-10.6) k/uL Hct (39.0-53.0) % MCV (80.0-100.0) fL MCHC (31.0-37.0) g/dL Plt Count (150-450) k/uL Neutrophils # (1.3-7.7) k/uL PT (10.0-12.5) sec INR (<1.2) VBG pH 7.26 L (7.31-7.41) VBG pCO2 64 H (37-51) mmHg Potassium 7.2 H* (3.5-5.1) mmol/L Chloride 93 L (98-107) mmol/L BUN 163 H* (9-20) mg/dL Creatinine 4.48 H (0.66-1.25) mg/dL Glucose 1276 H* (74-99) mg/dL POC Glucose (mg/dL) (70-110) mg/dL Plasma Lactic Acid Evaristo 3.8 H* (0.7-2.0) mmol/L Calcium 11.7 H (8.4-10.2) mg/dL Creatine Kinase 332 H (55-170) U/L Urine Glucose (UA) (Negative) Urine Cocaine Screen (NotDetected) 11/13/24 11/13/24 11/13/24 Range/Units 08:39 08:39 10:00 WBC (3.8-10.6) k/uL Hct (39.0-53.0) % MCV (80.0-100.0) fL MCHC (31.0-37.0) g/dL Plt Count (150-450) k/uL Neutrophils # (1.3-7.7) k/uL PT (10.0-12.5) sec INR (<1.2) VBG pH (7.31-7.41) VBG pCO2 (37-51) mmHg Potassium (3.5-5.1) mmol/L Chloride (98-107) mmol/L BUN (9-20) mg/dL Creatinine (0.66-1.25) mg/dL Glucose (74-99) mg/dL POC Glucose (mg/dL) >600 H* (70-110) mg/dL Plasma Lactic Acid Evaristo (0.7-2.0) mmol/L Calcium (8.4-10.2) mg/dL Creatine Kinase (55-170) U/L Urine Glucose (UA) 4+ H (Negative) Urine Cocaine Screen Detected H (NotDetected) 11/13/24 11/13/24 11/13/24 Range/Units 10:47 11:21 12:04 WBC (3.8-10.6) k/uL Hct (39.0-53.0) % MCV (80.0-100.0) fL MCHC (31.0-37.0) g/dL Plt Count (150-450) k/uL Neutrophils # (1.3-7.7) k/uL PT (10.0-12.5) sec INR (<1.2) VBG pH (7.31-7.41) VBG pCO2 (37-51) mmHg Potassium (3.5-5.1) mmol/L Chloride (98-107) mmol/L BUN (9-20) mg/dL Creatinine (0.66-1.25) mg/dL Glucose (74-99) mg/dL POC Glucose (mg/dL) >600 H* >600 H* (70-110) mg/dL Plasma Lactic Acid Evaristo 4.8 H* (0.7-2.0) mmol/L Calcium (8.4-10.2) mg/dL Creatine Kinase (55-170) U/L Urine Glucose (UA) (Negative) Urine Cocaine Screen (NotDetected) 11/13/24 11/13/24 Range/Units 12:18 13:02 WBC (3.8-10.6) k/uL Hct (39.0-53.0) % MCV (80.0-100.0) fL MCHC (31.0-37.0) g/dL Plt Count (150-450) k/uL Neutrophils # (1.3-7.7) k/uL PT (10.0-12.5) sec INR (<1.2) VBG pH (7.31-7.41) VBG pCO2 (37-51) mmHg Potassium 5.6 H (3.5-5.1) mmol/L Chloride (98-107) mmol/L BUN (9-20) mg/dL Creatinine (0.66-1.25) mg/dL Glucose (74-99) mg/dL POC Glucose (mg/dL) >600 H* (70-110) mg/dL Plasma Lactic Acid Evaristo (0.7-2.0) mmol/L Calcium (8.4-10.2) mg/dL Creatine Kinase (55-170) U/L Urine Glucose (UA) (Negative) Urine Cocaine Screen (NotDetected)
[2024-11-13 15:06] LABS: Glucose,Whole Blood 440 mg/dL (70-110)
[2024-11-13] MEDS: HEPARIN SODIUM,PORCINE 5,000 UNIT/ML 1 ML VIAL SQ SCH (15:14)
[2024-11-13] MEDS ORDERED: HEPARIN SODIUM,PORCINE 5,000 UNIT/ML 1 ML VIAL SQ SCH (16:00)
[2024-11-13 16:09] LABS: Glucose,Whole Blood 355 mg/dL (70-110)
[2024-11-13 16:33] LABS: African American GFR (CKD) 22 (>60 ml/min/1.73 sqM); Anion Gap 12 mmol/L; Carbon Dioxide 29 mmol/L (22-30); Chloride 119 mmol/L (98-107); Glucose 186 mg/dL (74-99); Non-African American GFR(CKD) 19 (>60 ml/min/1.73 sqM); Phosphorus 2.8 mg/dL (2.5-4.5); Potassium 3.8 mmol/L (3.5-5.1); Sodium 160 mmol/L (137-145)
--- NOTE | 2024-11-13 16:37 | P.CNNES ---
History of Present Illness Consult date: 11/13/24 Requesting physician: Danie Hui Reason for Consult: stroke activation, AMS History of Present Illness: Patient is a 69-year-old male came to the hospital by ambulance today at 6:35 AM for altered mental status. Patient not able to provide any history. At present he states he is feeling "not good". He denies headache. Please refer to examination below. Patient has been diagnosed with significant metabolic encephalopathy due to multiple metabolic abnormalities including hyperosmolar nonketotic state. The blood sugar was measured to be 1276. Ketones were negative. As per EMS flowsheet, when they arrived, on the scene patient was found to be sitting, leaned up against the bed. mentions that patient is normally alert and orient x 4 and fully independent. mentioned that she fell asleep last night on the couch and when she woke up this morning to use the bathroom, she found patient sitting on the ground leaning up against his bed. could not tell as to what time she saw patient last normal, about 10 PM the night prior. No previous history of stroke or seizure. Never had this episode happened before. No history of drug or alcohol use. Patient does have diabetes. No obvious injuries noted. When EMS arrived, patient was sitting on the floor and leaned up against the bed. Pupils were equal and reactive. Patient was unable to answer questions appropriately when asked. Patient was unable to answer his name. Patient was only getting out more and then any que stion asked. Both arms were felt weak. Upon arrival on scene, patient was unable to hold both arms up in the air for more than 3 seconds however while in route patient was moving both his arms. No facial droop. Prior to arrival to the hospital he was able to answer yes to some questions and following basic commands. Patient's vitals at the scene was blood pressure 101/62 pulse rate 117 respirations 17, temperature 98.4. Blood sugar 309. Blood test shows WBC 17.6, hemoglobin 17, elevated MCV 102.5, platelets 139. INR 1.3, sodium 140, potassium 7.2, blood sugar 1276 BUN 163 creatinine 4.48. Lactate 3.8. Hepatic panel normal, ammonia less than 9. Troponin negative. UA negative, urine drug screen positive for cocaine, blood alcohol level negative, acetone negative. Influenza, RSV and coronavirus PCR negative. EKG showed sinus tachycardia, possible right atrial enlargement. CT head showed minimal chronic small vessel ischemic change. No acute intracranial process. Chest x-ray showed diffuse interstitial infiltrates. Some considerations include interstitial pulmonary edema, interstitial pneumonitis or atypical pneumonias. CTA of head and neck revealed segmental mild atherosclerotic narrowing throughout bilateral carotid siphons. No large vessel intracranial arterial occlusion or aneurysm seen. Severe focal stenosis at the V3/V4 junction of the right vertebral artery. Mild, less than 25% proximal right ICA stenosis. Severe, 70% stenosis for rest pain of 1.0 to 1.5 cm involving the upper left ICA. COPD. Review of Systems Other review of systems mentioned in the HPI. ROS unobtainable: due to mental status Past Medical History Past Medical History: Chest Pain / Angina, Diabetes Mellitus, GERD/Reflux, Hypertension Additional Past Medical History / Comment(s): BACK PAIN, POSITIVE FOR BLOOD IN STOOL., SLIGHT FALSE PASS. History of Any Multi-Drug Resistant Organisms: None Reported Past Surgical History: Hernia Repair Additional Past Surgical History / Comment(s): NASAL SURGERY, RT ANKLE PINS & SCREWS. Past Anesthesia/Blood Transfusion Reactions: No Reported Reaction Past Psychological History: Depression Past Alcohol Use History: Occasional Past Drug Use History: None Reported - Past Family History Mother Family Medical History: No Reported History Medications and Allergies Home Medications Medication Instructions Recorded Confirmed Type No Known Home Medications 11/13/24 11/13/24 History Allergies Allergy/AdvReac Type Severity Reaction Status Date / Time morphine Allergy Unknown Itching Verified 11/13/24 09:47 tramadol Allergy Unknown Itching Verified 11/13/24 09:47 Physical Examination - Vital Signs Vital Signs: Vital Signs Temp Pulse Resp BP Pulse Ox 11/13/24 14:05 97.6 F 105 H 24 115/81 96 11/13/24 13:01 97.5 F L 105 H 24 105/71 97 11/13/24 12:05 97.6 F 105 H 24 116/82 96 11/13/24 11:26 97.4 F L 107 H 14 101/73 98 11/13/24 10:00 97.6 F 110 H 24 131/81 97 11/13/24 09:29 103 H 11/13/24 09:18 101 H 11/13/24 09:09 97.6 F 96 28 H 118/66 98 11/13/24 08:15 97.6 F 97 24 115/72 96 11/13/24 07:50 97.4 F L 101 H 22 123/71 98 11/13/24 06:37 97.5 F L 113 H 20 118/68 100 Intake and Output 11/12/24 11/13/24 11/13/24 22:59 06:59 14:59 Intake Total 51.631 Output Total 580 Balance -528.369 Intake: Intake, IV Titration 51.631 Amount Insulin Regular 100 unit 51.631 In Sodium Chloride 0.9% 100 ml @ 0.1 UNITS/KG/HR 10.537 mls/hr IV .Q9H36M [facility] Rx#:[id number] Output: Urine 580 Male - External 180 Other: Weight 104.326 kg Patient is an elderly male, who is in no acute distress. Patient is moderately encephalopathic, but does wake up and follow some directions. Patient mostly mumbles, very difficult to understand. He denies headache. He states feeling "not good". He states the month is November but could not tell the year as he says "1999...." And then stops. He could not tell current city or the state. Patient not naming objects, perseverating. Patient admits to having diabetes for "some time". He admits to taking medication. Attention, concentration and fund of knowledge are all severely limited. On cranial nerve examination, pupils are equal, round and reacting to light, visual espinoza could not be tested as he would not cooperate. He does somewhat blink to visual threat bilaterally. Extraocular muscles are intact with no nystagmus. Face is symmetric, tongue protrudes to the midline. Not able to check his dilated as he would not open his mouth widely. Hearing may be slightly decreased. Shoulder shrug normal. Facial sensation not able to be checked. On muscle strength testing, patient did not cooperate fully with examination. His biceps, triceps and epic ambulatory specialists appears normal. He did not cooperate for deltoid. Patient seems to move his both lower extremities equally. He was able to flex his knees, wiggle his ankles and toes equally bilaterally. No obvious focal weakness noted. Deep tendon reflexes are symmetric 1 at the biceps, trace pick radialis, 0 in the lower limbs and plantars are flat. Sensory to touch cannot be assessed, as he would not cooperate, but he responds to painful stimuli equally. Cerebellar function did not cooperate in the upper or lower limbs. Tone and bulk of muscles normal. Gait deferred.. On general examination, there is no carotid bruit or murmur, S1-S2 audible. Chest is clear on consultation. Abdomen is soft nontender. No organomegaly, bowel sounds present. Peripheral pulses are present. No peripheral edema. Results - Laboratory Findings CBC and BMP: 11/22/24 03:07 11/22/24 03:07 Abnormal Lab Findings: Abnormal Labs 11/13/24 11/13/24 11/13/24 06:39 06:39 06:39 WBC 17.6 H Hct 57.9 H* MCV 102.5 H MCHC 29.3 L Plt Count 139 L Neutrophils # 15.1 H PT 13.7 H INR 1.3 H VBG pH VBG pCO2 Sodium Potassium Chloride BUN Creatinine Glucose POC Glucose (mg/dL) >600 H* Plasma Lactic Acid Evaristo Calcium Creatine Kinase Urine Glucose (UA) Urine Cocaine Screen 11/13/24 11/13/24 11/13/24 06:39 07:40 08:32 WBC Hct MCV MCHC Plt Count Neutrophils # PT INR VBG pH 7.26 L VBG pCO2 64 H Sodium Potassium 7.2 H* Chloride 93 L BUN 163 H* Creatinine 4.48 H Glucose 1276 H* POC Glucose (mg/dL) Plasma Lactic Acid Evaristo 3.8 H* Calcium 11.7 H Creatine Kinase 332 H Urine Glucose (UA) Urine Cocaine Screen 11/13/24 11/13/24 11/13/24 08:39 08:39 10:00 WBC Hct MCV MCHC Plt Count Neutrophils # PT INR VBG pH VBG pCO2 Sodium Potassium Chloride BUN Creatinine Glucose POC Glucose (mg/dL) >600 H* Plasma Lactic Acid Evaristo Calcium Creatine Kinase Urine Glucose (UA) 4+ H Urine Cocaine Screen Detected H 11/13/24 11/13/24 11/13/24 10:47 11:21 12:04 WBC Hct MCV MCHC Plt Count Neutrophils # PT INR VBG pH VBG pCO2 Sodium Potassium Chloride BUN Creatinine Glucose POC Glucose (mg/dL) >600 H* >600 H* Plasma Lactic Acid Evaristo 4.8 H* Calcium Creatine Kinase Urine Glucose (UA) Urine Cocaine Screen 11/13/24 11/13/24 11/13/24 12:18 13:02 14:06 WBC Hct MCV MCHC Plt Count Neutrophils # PT INR VBG pH VBG pCO2 Sodium 152 H Potassium 5.6 H Chloride 108 H BUN 150 H* Creatinine 3.87 H Glucose 731 H* POC Glucose (mg/dL) >600 H* >600 H* Plasma Lactic Acid Evaristo Calcium Creatine Kinase Urine Glucose (UA) Urine Cocaine Screen Assessment and Plan Assessment: * Altered mental status, likely due to metabolic encephalopathy. Limited examination is nonfocal. No definitive evidence of acute CVA. * Hyperosmolar hyperglycemic state * Type 2 diabetes, poorly controlled * Acute kidney injury, due to severe dehydration * Respiratory acidosis * Lactic acidosis * Hyperkalemia, improved * COPD * Rhabdomyolysis * Substance abuse urine positive for cocaine. * Left ICA stenosis 70%, severe focal stenosis at the V3/V4 junction of right vertebral artery Plan: * Patient's examination is relatively nonfocal. CT head revealed no acute process. Minimal chronic small vessel ischemic change. * CTA of head and neck revealed segmental mild atherosclerotic narrowing throughout bilateral carotid siphons. No large vessel intracranial arterial occlusion or aneurysm seen. Severe focal stenosis at the V3/V4 junction of the right vertebral artery. Mild, less than 25% proximal right ICA stenosis. Severe, 70% stenosis for a span of 1.0 to 1.5 cm involving the upper left ICA.. * Hemoglobin A1c * Fasting a.m. lipid panel * Start aspirin 325 mg daily. * Treatment of uncontrolled diabetes as per IM and critical care. * Recommend abstinence from substance abuse * Other medical management as per IM and other specialties on board. * We will try to obtain collateral history from family members. * Neurology will follow. Thank you for the consult.
[2024-11-13 16:53] LABS: Blood Urea Nitrogen 126 mg/dL (9-20)
[2024-11-13 17:04] LABS: Glucose,Whole Blood 191 mg/dL (70-110)
[2024-11-13] MEDS: D5-0.45% NACL WITH KCL 20MEQ/L 1,000 ML IV SCH (17:07)
[2024-11-13 18:06] LABS: Glucose,Whole Blood 266 mg/dL (70-110)
--- NOTE | 2024-11-13 18:55 | P.NPCON ---
History of Present Illness - Reason for Consult acute renal failure - History of Present Illness Patient is a 69-year-old male with history of type 2 diabetes who is admitted to the hospital due to mental status changes. Patient is not able to provide a detailed history. He was noted to have a serum glucose of 1276. Potassium was 7.1 and serum creatinine 4.4. No acidosis noted. No history of alcohol abuse No significant diarrhea noted. Patient has an external catheter with urine output documented at 760 mL. Patient has been started on insulin drip. He was maintained on normal saline. This will be switched to D5W now as serum glucose has decreased to 186 Past Medical History Past Medical History: Chest Pain / Angina, Diabetes Mellitus, GERD/Reflux, Hy pertension Additional Past Medical History / Comment(s): BACK PAIN, POSITIVE FOR BLOOD IN STOOL., SLIGHT [place]. History of Any Multi-Drug Resistant Organisms: None Reported Past Surgical History: Hernia Repair Additional Past Surgical History / Comment(s): NASAL SURGERY, RT ANKLE PINS & SCREWS. Past Anesthesia/Blood Transfusion Reactions: No Reported Reaction Past Psychological History: Depression Past Alcohol Use History: Occasional Past Drug Use History: None Reported - Past Family History Mother Family Medical History: No Reported History Medications and Allergies Home Medications Medication Instructions Recorded Confirmed Type No Known Home Medications 11/13/24 11/13/24 History Allergies Allergy/AdvReac Type Severity Reaction Status Date / Time morphine Allergy Unknown Itching Verified 11/13/24 09:47 tramadol Allergy Unknown Itching Verified 11/13/24 09:47 Physical Exam Vitals: Vital Signs Temp Pulse Resp BP Pulse Ox 11/13/24 18:05 97.4 F L 105 H 20 102/75 96 11/13/24 17:01 97.4 F L 101 H 20 101/68 95 11/13/24 16:10 97.5 F L 104 H 26 H 101/72 95 11/13/24 15:11 97.4 F L 109 H 22 117/72 97 11/13/24 14:05 97.6 F 105 H 24 115/81 96 11/13/24 13:01 97.5 F L 105 H 24 105/71 97 11/13/24 12:05 97.6 F 105 H 24 116/82 96 11/13/24 11:26 97.4 F L 107 H 14 101/73 98 11/13/24 10:00 97.6 F 110 H 24 131/81 97 11/13/24 09:29 103 H 11/13/24 09:18 101 H 11/13/24 09:09 97.6 F 96 28 H 118/66 98 11/13/24 08:15 97.6 F 97 24 115/72 96 11/13/24 07:50 97.4 F L 101 H 22 123/71 98 11/13/24 06:37 97.5 F L 113 H 20 118/68 100 Intake and Output 11/13/24 11/13/24 11/13/24 06:59 14:59 22:59 Intake Total 51.631 38.799 Output Total 760 700 Balance -708.369 -661.201 Intake: Intake, IV Titration 51.631 38.799 Amount Insulin Regular 100 unit 51.631 38.799 In Sodium Chloride 0.9% 100 ml @ 0.1 UNITS/KG/HR 10.537 mls/hr IV .Q9H36M [facility] Rx#:[id number] Output: Urine 760 700 Male - External 180 350 Other: Weight 104.326 kg Patient is awake, comfortable, no acute distress. Examination of the heart S1 and S2 Examination of the lungs bilateral breath sounds are heard Abdomen is soft nontender Examination lower extremity shows no significant edema Patient is able to move all 4 extremities. Results - Lab Results Most recent lab results Calcium 11.7 mg/dL (8.4-10.2) H 11/13/24 07:40 Phosphorus 2.8 mg/dL (2.5-4.5) 11/13/24 16:13 11/13/24 06:39 11/13/24 16:13 Assessment and Plan Assessment: 1. Acute kidney injury associated with severe volume depletion hyper osmolar nonketotic diabetic state. Nonoliguric. UA is benign. No previous labs available for comparison. 2. Hypernatremia associated with free water deficit. Serum sodium was 140 on admission which was falsely low due to severe hyperglycemia. Corrected sodium is 159. Currently maintained on normal saline which is appropriate. 3. Hyperkalemia associated with acute severe hyperglycemia and acute kidney injury. Expect improvement with improving blood sugars. 4. History of polysubstance abuse with drug screen positive for cocaine 5. Respiratory acidosis with CO2 retention 6. Mental status changes secondary to metabolic encephalopathy Plan: Continue with normal saline and switch to D5W once blood sugar decreases Continue to check electrolytes every 4 hours Check ultrasound of the kidneys Continue antibiotics for possible underlying infection. Thank you for the consultation. We will continue to follow the patient with you during his hospitalization.
[2024-11-13 19:03] LABS: Glucose,Whole Blood 185 mg/dL (70-110)
[2024-11-13 19:59] LABS: Glucose,Whole Blood 119 mg/dL (70-110)
--- NOTE | 2024-11-13 20:35 | P.CNPUL ---
History of Present Illness Consult date: 11/13/24 Chief complaint: Altered mentation History of present illness: 69-year-old male patient, diabetic, presents emerged part because of altered mentation. Immediately, the patient was noted to be hyperglycemic and had significant metabolic abnormalities consistent with hyperosmolar nonketotic state. Noted the blood sugar was measured to be at 1276. Ketones were negative. UA was showing plus for glucose. Urine drug screen was positive for cocaine. Viral 4 Plex was negative. In terms of the blood work, the patient's initial sodium level was at 140, potassium level was at 7.2, BUN was 163 with a creatinine of 4.48 with a anion gap of 21. Lactic acid was measured at 3.8 initially and is peaked at 5.8. LFTs were normal. CPK was 332. Troponins were negative. proBNP level was 215. Troponins were negative. Alcohol level was less than 10. Acetone was negative. The white cell count was at 17.6 with a hemoglobin of 17 and a platelet count of 139. Coagulation profile was within normal limits. Chest x-ray was done Emergency Department and it showed diffuse interstitial changes bilaterally, chronicity is unknown. CAT scan of the brain showed no evidence of any acute bleed or CVA it was consistent with mild chronic small vessel ischemic changes and there was no evidence of an acute CVA. CT angiogram of the brain showed COPD with moderate emphysematous changes in lung apices bilaterally. Less than 25% proximal right ICA stenosis, 70% left ICA disease and the andreafski vertebral arteries were small in caliber. Based on all this, the patient was started on fluid resuscitation. The patient was given normal saline, a total of 2 L and subsequently the patient was started on a bicarb infusion. Urine output is adequate for now. Subsequent blood work on this patient showed drop in the creatinine down to 3.12 with a BUN of 126. Sodium level came at 160 following the correction of the blood sugar. Most recent blood sugars down to 186 as the patient is currently on insulin drip for blood sugar control. Lactic acid level is currently at 5.0. Neurologically, the patient remains altered and confused. Unable to volunteer any history. He does mumble. He is afebrile for now. He is on room air oxygen. The cardiac rhythm is sinus. Ultrasound the kidneys was done and it showed no evidence of any hydronephrosis. Review of Systems ROS unobtainable: due to mental status Past Medical History Past Medical History: Chest Pain / Angina, COPD, Diabetes Mellitus, GERD/Reflux, Hypertension Additional Past Medical History / Comment(s): BACK PAIN, SLIGHT [place]. History of Any Multi-Drug Resistant Organisms: None Reported Past Surgical History: Hernia Repair Additional Past Surgical History / Comment(s): NASAL SURGERY, RT ANKLE PINS & SC REWS. Past Anesthesia/Blood Transfusion Reactions: No Reported Reaction Past Psychological History: Depression Past Alcohol Use History: Occasional Past Drug Use History: None Reported - Past Family History Mother Family Medical History: No Reported History Medications and Allergies Home Medications Medication Instructions Recorded Confirmed Type No Known Home Medications 11/13/24 11/13/24 History Allergies Allergy/AdvReac Type Severity Reaction Status Date / Time morphine Allergy Unknown Itching Verified 11/13/24 09:47 tramadol Allergy Unknown Itching Verified 11/13/24 09:47 Physical Exam Vitals: Vital Signs Temp Pulse Resp BP Pulse Ox 11/13/24 20:00 105 H 18 112/90 95 11/13/24 19:02 97.5 F L 103 H 18 108/78 96 11/13/24 18:05 97.4 F L 105 H 20 102/75 96 11/13/24 17:01 97.4 F L 101 H 20 101/68 95 11/13/24 16:10 97.5 F L 104 H 26 H 101/72 95 11/13/24 15:11 97.4 F L 109 H 22 117/72 97 11/13/24 14:05 97.6 F 105 H 24 115/81 96 11/13/24 13:01 97.5 F L 105 H 24 105/71 97 11/13/24 12:05 97.6 F 105 H 24 116/82 96 11/13/24 11:26 97.4 F L 107 H 14 101/73 98 11/13/24 10:00 97.6 F 110 H 24 131/81 97 11/13/24 09:29 103 H 11/13/24 09:18 101 H 11/13/24 09:09 97.6 F 96 28 H 118/66 98 11/13/24 08:15 97.6 F 97 24 115/72 96 11/13/24 07:50 97.4 F L 101 H 22 123/71 98 11/13/24 06:37 97.5 F L 113 H 20 118/68 100 Intake and Output 11/13/24 11/13/24 11/13/24 06:59 14:59 22:59 Intake Total 51.631 44.370 Output Total 760 1140 Balance -708.369 -1095.630 Intake: Intake, IV Titration 51.631 44.370 Amount Insulin Regular 100 unit 51.631 44.370 In Sodium Chloride 0.9% 100 ml @ 0.1 UNITS/KG/HR 10.537 mls/hr IV .Q9H36M [facility] Rx#:[id number] Output: Urine 760 1140 Male - External 180 350 Uretheral (Puente) 220 Other: Weight 104.326 kg The patient is confused, unable to communicate, currently on room air oxygen. No sign of any significant respiratory distress. Mucous membranes are dry and the patient looks to be severely dehydrated. Head exam is unremarkable. No scleral icterus or corneal arcus noted. Neck is without jugular venous distension, thyromegaly, or carotid bruits. Carotid upstrokes are brisk bilaterally. Lungs are clear to auscultation and percussion. Cardiac exam reveals the PMI to be normally sized and situated. Rhythm is regular. First and second heart sounds normal. No murmurs, rubs or gallops. Abdominal exam reveals normal bowel sounds, no masses, no organomegaly and no aortic enlargement. Extremities are nonedematous and both femoral and pedal pulses are normal. Examination of the skin revealed no evidence of significant rashes, suspicious appearing nevi or other concerning lesions. Neurologically, the patient demonstrates diminished level of consciousness, withdraws to painful stimulation. Overall neurologic exam is nonfocal. Results - Laboratory Findings CBC and BMP: 11/13/24 06:39 11/13/24 16:13 PT/INR, D-dimer PT 13.7 sec (10.0-12.5) H 11/13/24 06:39 INR 1.3 (<1.2) H 11/13/24 06:39 Abnormal lab findings: Abnormal Labs 11/13/24 11/13/24 11/13/24 06:39 06:39 06:39 WBC 17.6 H Hct 57.9 H* MCV 102.5 H MCHC 29.3 L Plt Count 139 L Neutrophils # 15.1 H PT 13.7 H INR 1.3 H VBG pH VBG pCO2 Sodium Potassium Chloride BUN Creatinine Glucose POC Glucose (mg/dL) >600 H* Plasma Lactic Acid Evaristo Calcium Creatine Kinase Urine Glucose (UA) Urine Cocaine Screen 11/13/24 11/13/24 11/13/24 06:39 07:40 08:32 WBC Hct MCV MCHC Plt Count Neutrophils # PT INR VBG pH 7.26 L VBG pCO2 64 H Sodium Potassium 7.2 H* Chloride 93 L BUN 163 H* Creatinine 4.48 H Glucose 1276 H* POC Glucose (mg/dL) Plasma Lactic Acid Evaristo 3.8 H* Calcium 11.7 H Creatine Kinase 332 H Urine Glucose (UA) Urine Cocaine Screen 11/13/24 11/13/24 11/13/24 08:39 08:39 10:00 WBC Hct MCV MCHC Plt Count Neutrophils # PT INR VBG pH VBG pCO2 Sodium Potassium Chloride BUN Creatinine Glucose POC Glucose (mg/dL) >600 H* Plasma Lactic Acid Evaristo Calcium Creatine Kinase Urine Glucose (UA) 4+ H Urine Cocaine Screen Detected H 11/13/24 11/13/24 11/13/24 10:47 11:21 12:04 WBC Hct MCV MCHC Plt Count Neutrophils # PT INR VBG pH VBG pCO2 Sodium Potassium Chloride BUN Creatinine Glucose POC Glucose (mg/dL) >600 H* >600 H* Plasma Lactic Acid Evaristo 4.8 H* Calcium Creatine Kinase Urine Glucose (UA) Urine Cocaine Screen 11/13/24 11/13/24 11/13/24 12:18 13:02 14:06 WBC Hct MCV MCHC Plt Count Neutrophils # PT INR VBG pH VBG pCO2 Sodium 152 H Potassium 5.6 H Chloride 108 H BUN 150 H* Creatinine 3.87 H Glucose 731 H* POC Glucose (mg/dL) >600 H* >600 H* Plasma Lactic Acid Evaristo Calcium Creatine Kinase Urine Glucose (UA) Urine Cocaine Screen 11/13/24 11/13/24 11/13/24 14:36 15:04 16:07 WBC Hct MCV MCHC Plt Count Neutrophils # PT INR VBG pH VBG pCO2 Sodium Potassium Chloride BUN Creatinine Glucose POC Glucose (mg/dL) 440 H 355 H Plasma Lactic Acid Evaristo 5.8 H* Calcium Creatine Kinase Urine Glucose (UA) Urine Cocaine Screen 11/13/24 11/13/24 11/13/24 16:13 17:00 18:04 WBC Hct MCV MCHC Plt Count Neutrophils # PT INR VBG pH VBG pCO2 Sodium 160 H Potassium Chloride 119 H BUN 126 H* Creatinine 3.12 H Glucose 186 H POC Glucose (mg/dL) 191 H 266 H Plasma Lactic Acid Evaristo Calcium Creatine Kinase Urine Glucose (UA) Urine Cocaine Screen 11/13/24 11/13/24 11/13/24 18:28 19:02 19:58 WBC Hct MCV MCHC Plt Count Neutrophils # PT INR VBG pH VBG pCO2 Sodium Potassium Chloride BUN Creatinine Glucose POC Glucose (mg/dL) 185 H 119 H Plasma Lactic Acid Evaristo 5.0 H* Calcium Creatine Kinase Urine Glucose (UA) Urine Cocaine Screen - Diagnostic Findings Chest x-ray: image reviewed Assessment and Plan Plan: Acute hyperglycemia with hyperosmolar nonketotic hyperglycemic state. Altered mentation secondary to above. This is related to metabolic encephalopathy. CT scan of the brain and CT angiogram shows no evidence of an acute stroke. Severe dehydration and intravascular volume depletion secondary to above Acute kidney injury, secondary to above versus related to intravascular volume depletion. No evidence of any hydronephrosis Pseudohyponatremia. The sodium level is currently elevated as the patient's blood sugars are being adjusted and corrected. Lactic acidosis with a component of mild anion gap metabolic acidosis. Acetone is negative Rhabdomyolysis, mild Acute hypokalemia secondary to above, improving History of substance abuse with a positive urine drug screen for cocaine Carotid artery stenosis COPD, currently inactive and stable Plan Switch the patient's IV fluids to half-normal saline at rate of 150 cc an hour along with 20 mg of potassium chloride Continue insulin drip Hourly blood sugar monitoring Potassium level is normalized Monitor renal function and urine output Monitor sodium level Monitor mental status Antibiotic coverage essentially empiric at this point in time Heparin subcu for DVT prophylaxis Aspiration precautions Keep the patient n.p.o. for now Will continue to follow Will transfer to the intensive care unit
[2024-11-13 20:38] LABS: Glucose,Whole Blood 105 mg/dL (70-110)
[2024-11-13 21:03] LABS: Glucose,Whole Blood 92 mg/dL (70-110)
[2024-11-13 21:35] LABS: Glucose,Whole Blood 237 mg/dL (70-110)
[2024-11-13 22:05] LABS: Glucose,Whole Blood 162 mg/dL (70-110)
[2024-11-13 23:16] LABS: Glucose,Whole Blood 166 mg/dL (70-110)
[2024-11-13] MEDS: 0.45% NACL WITH KCL 20 MEQ/L 1,000 ML IV SCH (23:32)
[2024-11-14 00:06] LABS: Glucose,Whole Blood 204 mg/dL (70-110)
[2024-11-14 01:09] LABS: Glucose,Whole Blood 178 mg/dL (70-110)
[2024-11-14 01:37] LABS: ALT 21 U/L (4-49); AST 32 U/L (17-59); African American GFR (CKD) 22 (>60 ml/min/1.73 sqM); Albumin 3.8 g/dL (3.5-5.0); Alkaline Phosphatase 83 U/L (38-126); Anion Gap 12 mmol/L; Calcium 11.2 mg/dL (8.4-10.2); Carbon Dioxide 30 mmol/L (22-30); Chloride 115 mmol/L (98-107); Glucose 232 mg/dL (74-99); Non-African American GFR(CKD) 19 (>60 ml/min/1.73 sqM); Potassium 4.7 mmol/L (3.5-5.1); Sodium 157 mmol/L (137-145); Total Bilirubin 0.4 mg/dL (0.2-1.3); Total Protein 6.7 g/dL (6.3-8.2)
[2024-11-14 01:58] LABS: Blood Urea Nitrogen 118 mg/dL (9-20)
[2024-11-14 02:18] LABS: Glucose,Whole Blood 217 mg/dL (70-110)
[2024-11-14 03:09] LABS: Glucose,Whole Blood 257 mg/dL (70-110)
[2024-11-14 04:08] LABS: Glucose,Whole Blood 295 mg/dL (70-110)
[2024-11-14 05:03] LABS: Glucose,Whole Blood 281 mg/dL (70-110)
[2024-11-14 06:02] LABS: Glucose,Whole Blood 313 mg/dL (70-110)
[2024-11-14 06:39] LABS: Basophils # (A) 0.1 k/uL (0-0.2); Basophils % (A) 1 %; Eosinophils # (A) 0.3 k/uL (0-0.7); Eosinophils % (A) 2 %; HCT 52.9 % (39.0-53.0); HGB 16.3 gm/dL (13.0-17.5); Hypochromasia Marked; Lymphocytes # (A) 1.5 k/uL (1.0-4.8); Lymphocytes % (A) 8 %; MCH 29.8 pg (25.0-35.0); MCHC 30.8 g/dL (31.0-37.0); Mean Platelet Volume 12.3; Monocytes % (A) 5 %; Neutrophils # (A) 15.9 k/uL (1.3-7.7); Neutrophils % (A) 84 %; RBC 5.45 m/uL (4.30-5.90); RDW 13.9 % (11.5-15.5); WBC 18.9 k/uL (3.8-10.6)
[2024-11-14 06:40] LABS: Platelet Count 84 k/uL (150-450)
[2024-11-14 06:58] LABS: Glucose,Whole Blood 353 mg/dL (70-110)
[2024-11-14 07:00] LABS: ALT 21 U/L (4-49); AST 39 U/L (17-59); African American GFR (CKD) 24 (>60 ml/min/1.73 sqM); Albumin 3.6 g/dL (3.5-5.0); Alkaline Phosphatase 91 U/L (38-126); Anion Gap 19 mmol/L; Calcium 10.6 mg/dL (8.4-10.2); Carbon Dioxide 18 mmol/L (22-30); Chloride 116 mmol/L (98-107); Creatine Kinase 670 U/L (55-170); Glucose 336 mg/dL (74-99); Non-African American GFR(CKD) 21 (>60 ml/min/1.73 sqM); Potassium 4.8 mmol/L (3.5-5.1); Sodium 153 mmol/L (137-145); Total Bilirubin 0.5 mg/dL (0.2-1.3); Total Protein 6.6 g/dL (6.3-8.2)
[2024-11-14 07:06] LABS: Blood Urea Nitrogen 110 mg/dL (9-20)
[2024-11-14 07:56] LABS: Glucose,Whole Blood 353 mg/dL (70-110)
--- NOTE | 2024-11-14 08:16 | XR ---
EXAMINATION TYPE: XR chest 1V DATE OF EXAM: 11/14/2024 CLINICAL HISTORY: Difficulty breathing progress study. TECHNIQUE: Repeat portable frontal supine views of the chest are obtained. COMPARISON: Chest x-ray from one day earlier FINDINGS: Heart stable and normal in size. There is persistent diffuse reticular opacities bilateral ly. No pleural effusion seen. Osseous structures are intact. IMPRESSION: Diffuse reticular interstitial fibrosis and/or less likely due to edema and/or infiltrate s. No significant change from one day earlier. Correlate clinically and with older outside chest x-ra y would be beneficial. [facility], , 11/14/2024 8:14 AM
[2024-11-14] MEDS: AZITHROMYCIN 500 MG TAB PO SCH (08:29)
[2024-11-14] MEDS: ASPIRIN 325 MG TAB PO SCH (08:29)
[2024-11-14 08:58] LABS: Glucose,Whole Blood 336 mg/dL (70-110)
[2024-11-14 09:58] LABS: Glucose,Whole Blood 377 mg/dL (70-110)
[2024-11-14] MEDS: LORazepam 2 MG/ML INJ IV STA (10:04)
--- NOTE | 2024-11-14 10:36 | P.PN ---
Subjective Progress Note Date: 11/14/24 69-year-old male patient, diabetic, presents emerged part because of altered me ntation. Immediately, the patient was noted to be hyperglycemic and had significant metabolic abnormalities consistent with hyperosmolar nonketotic state. Noted the blood sugar was measured to be at 1276. Ketones were negative. UA was showing plus for glucose. Urine drug screen was positive for cocaine. Viral 4 Plex was negative. In terms of the blood work, the patient's initial sodium level was at 140, potassium level was at 7.2, BUN was 163 with a creatinine of 4.48 with a anion gap of 21. Lactic acid was measured at 3.8 initially and is peaked at 5.8. LFTs were normal. CPK was 332. Troponins were negative. proBNP level was 215. Troponins were negative. Alcohol level was less than 10. Acetone was negative. The white cell count was at 17.6 with a hemoglobin of 17 and a platelet count of 139. Coagulation profile was within normal limits. Chest x-ray was done Emergency Department and it showed diffuse interstitial changes bilaterally, chronicity is unknown. CAT scan of the brain showed no evidence of any acute bleed or CVA it was consistent with mild chronic small vessel ischemic changes and there was no evidence of an acute CVA. CT angiogram of the brain showed COPD with moderate emphysematous changes in lung apices bilaterally. Less than 25% proximal right ICA stenosis, 70% left ICA disease and the [place] vertebral arteries were small in caliber. Based on all this, the patient was started on fluid resuscitation. The patient was given normal saline, a total of 2 L and subsequently the patient was started on a bicarb infusion. Urine output is adequate for now. Subsequent blood work on this patient showed drop in the creatinine down to 3.12 with a BUN of 126. Sodium level came at 160 following the correction of the blood sugar. Most recent blood sugars down to 186 as the patient is currently on insulin drip for blood sugar control. Lactic acid level is currently at 5.0. Neurologically, the patient remains altered and confused. Unable to volunteer any history. He does mumble. He is afebrile for now. He is on room air oxygen. The cardiac rhythm is sinus. Ultrasound the kidneys was done and it showed no evidence of any hydronephrosis. On 11/14/2024, the patient is being seen for a follow-up. Seems to be much more alert and awake compared to yesterday although he remains somewhat confused. Family is at the bedside. The patient is currently on insulin drip running at 4 units an hour. The patient is also on half-normal saline running at 150 cc an hour. The patient's blood work from this morning showed a sodium level of 153 with a potassium level of 4.8, bicarb is at 18 with a BUN of 110 and a creatinine of 2.9. Noted the creatinine has been gradually improving. Potassium level is also stabilized. Sodium level is improving. The white cell count is 18.9 with a hemoglobin of 16.3. The chest x-ray shows chronic coarse interstitial infiltrates probably due to chronic ILD/fibrosis. The patient remains on empiric antibiotic coverage with IV Rocephin and Zithromax. Afebrile. Hemodynamically stable on no pressors. He has already started some soft diet. Urine drug screen is positive for cocaine. Objective - Vital Signs Vital signs: Vital Signs Temp 97.6 F 11/14/24 07:45 Pulse 104 H 11/14/24 10:06 Resp 20 11/14/24 10:06 BP 104/67 11/14/24 10:06 Pulse Ox 94 L 11/14/24 10:06 FiO2 Intake & Output 11/13/24 11/14/24 11/14/24 18:59 06:59 18:59 Intake Total 90.430 9.469 9.784 Output Total 9471 878 5308 Balance -1809.570 -365.531 -990.216 Intake: Intake, IV Titration 90.430 9.469 9.784 Amount Insulin Regular 100 unit 90.430 9.469 9.784 In Sodium Chloride 0.9% 100 ml @ 0.1 UNITS/KG/HR 10.537 mls/hr IV .Q9H36M [facility] Rx#:[id number] Output: Urine 2773 649 9250 Male - External 530 [address] (Puente) 220 375 - Exam The patient is confused, unable to communicate, currently on room air oxygen. No sign of any significant respiratory distress. Mucous membranes are dry and the patient looks to be severely dehydrated. Head exam is unremarkable. No scleral icterus or corneal arcus noted. Neck is without jugular venous distension, thyromegaly, or carotid bruits. Carotid upstrokes are brisk bilaterally. Lungs are clear to auscultation and percussion. Cardiac exam reveals the PMI to be normally sized and situated. Rhythm is regular. First and second heart sounds normal. No murmurs, rubs or gallops. Abdominal exam reveals normal bowel sounds, no masses, no organomegaly and no aortic enlargement. Extremities are nonedematous and both femoral and pedal pulses are normal. Examination of the skin revealed no evidence of significant rashes, suspicious appearing nevi or other concerning lesions. Neurologically, the patient more alert and communicative compared to yesterday. Remains confused.. Overall neurologic exam is nonfocal. - Labs CBC & Chem 7: 11/14/24 06:10 11/14/24 06:10 Labs: Abnormal Lab Results - Last 24 Hours (Table) 11/13/24 11/13/24 11/13/24 Range/Units 10:47 11:21 12:04 WBC (3.8-10.6) k/uL MCHC (31.0-37.0) g/dL Plt Count (150-450) k/uL Neutrophils # (1.3-7.7) k/uL Sodium (137-145) mmol/L Potassium (3.5-5.1) mmol/L Chloride (98-107) mmol/L Carbon Dioxide (22-30) mmol/L BUN (9-20) mg/dL Creatinine (0.66-1.25) mg/dL Glucose (74-99) mg/dL POC Glucose (mg/dL) >600 H* >600 H* (70-110) mg/dL Hemoglobin A1c (<=6.0) % Plasma Lactic Acid Evaristo 4.8 H* (0.7-2.0) mmol/L Calcium (8.4-10.2) mg/dL Creatine Kinase (55-170) U/L 11/13/24 11/13/24 11/13/24 Range/Units 12:18 13:02 14:06 WBC (3.8-10.6) k/uL MCHC (31.0-37.0) g/dL Plt Count (150-450) k/uL Neutrophils # (1.3-7.7) k/uL Sodium 152 H (137-145) mmol/L Potassium 5.6 H (3.5-5.1) mmol/L Chloride 108 H (98-107) mmol/L Carbon Dioxide (22-30) mmol/L BUN 150 H* (9-20) mg/dL Creatinine 3.87 H (0.66-1.25) mg/dL Glucose 731 H* (74-99) mg/dL POC Glucose (mg/dL) >600 H* >600 H* (70-110) mg/dL Hemoglobin A1c (<=6.0) % Plasma Lactic Acid Evaristo (0.7-2.0) mmol/L Calcium (8.4-10.2) mg/dL Creatine Kinase (55-170) U/L 11/13/24 11/13/24 11/13/24 Range/Units 14:36 15:04 16:07 WBC (3.8-10.6) k/uL MCHC (31.0-37.0) g/dL Plt Count (150-450) k/uL Neutrophils # (1.3-7.7) k/uL Sodium (137-145) mmol/L Potassium (3.5-5.1) mmol/L Chloride (98-107) mmol/L Carbon Dioxide (22-30) mmol/L BUN (9-20) mg/dL Creatinine (0.66-1.25) mg/dL Glucose (74-99) mg/dL POC Glucose (mg/dL) 440 H 355 H (70-110) mg/dL Hemoglobin A1c (<=6.0) % Plasma Lactic Acid Evaristo 5.8 H* (0.7-2.0) mmol/L Calcium (8.4-10.2) mg/dL Creatine Kinase (55-170) U/L 11/13/24 11/13/24 11/13/24 Range/Units 16:13 17:00 18:04 WBC (3.8-10.6) k/uL MCHC (31.0-37.0) g/dL Plt Count (150-450) k/uL Neutrophils # (1.3-7.7) k/uL Sodium 160 H (137-145) mmol/L Potassium (3.5-5.1) mmol/L Chloride 119 H (98-107) mmol/L Carbon Dioxide (22-30) mmol/L BUN 126 H* (9-20) mg/dL Creatinine 3.12 H (0.66-1.25) mg/dL Glucose 186 H (74-99) mg/dL POC Glucose (mg/dL) 191 H 266 H (70-110) mg/dL Hemoglobin A1c (<=6.0) % Plasma Lactic Acid Evaristo (0.7-2.0) mmol/L Calcium (8.4-10.2) mg/dL Creatine Kinase (55-170) U/L 11/13/24 11/13/24 11/13/24 Range/Units 18:28 19:02 19:58 WBC (3.8-10.6) k/uL MCHC (31.0-37.0) g/dL Plt Count (150-450) k/uL Neutrophils # (1.3-7.7) k/uL Sodium (137-145) mmol/L Potassium (3.5-5.1) mmol/L Chloride (98-107) mmol/L Carbon Dioxide (22-30) mmol/L BUN (9-20) mg/dL Creatinine (0.66-1.25) mg/dL Glucose (74-99) mg/dL POC Glucose (mg/dL) 185 H 119 H (70-110) mg/dL Hemoglobin A1c (<=6.0) % Plasma Lactic Acid Evaristo 5.0 H* (0.7-2.0) mmol/L Calcium (8.4-10.2) mg/dL Creatine Kinase (55-170) U/L 11/13/24 11/13/24 11/13/24 Range/Units 21:12 21:34 22:03 WBC (3.8-10.6) k/uL MCHC (31.0-37.0) g/dL Plt Count (150-450) k/uL Neutrophils # (1.3-7.7) k/uL Sodium (137-145) mmol/L Potassium (3.5-5.1) mmol/L Chloride (98-107) mmol/L Carbon Dioxide (22-30) mmol/L BUN (9-20) mg/dL Creatinine (0.66-1.25) mg/dL Glucose (74-99) mg/dL POC Glucose (mg/dL) 237 H 162 H (70-110) mg/dL Hemoglobin A1c (<=6.0) % Plasma Lactic Acid Evaristo 4.1 H* (0.7-2.0) mmol/L Calcium (8.4-10.2) mg/dL Creatine Kinase (55-170) U/L 11/13/24 11/14/24 11/14/24 Range/Units 23:15 00:04 01:07 WBC (3.8-10.6) k/uL MCHC (31.0-37.0) g/dL Plt Count (150-450) k/uL Neutrophils # (1.3-7.7) k/uL Sodium (137-145) mmol/L Potassium (3.5-5.1) mmol/L Chloride (98-107) mmol/L Carbon Dioxide (22-30) mmol/L BUN (9-20) mg/dL Creatinine (0.66-1.25) mg/dL Glucose (74-99) mg/dL POC Glucose (mg/dL) 166 H 204 H 178 H (70-110) mg/dL Hemoglobin A1c (<=6.0) % Plasma Lactic Acid Evaristo (0.7-2.0) mmol/L Calcium (8.4-10.2) mg/dL Creatine Kinase (55-170) U/L 11/14/24 11/14/24 11/14/24 Range/Units 01:12 02:05 03:07 WBC (3.8-10.6) k/uL MCHC (31.0-37.0) g/dL Plt Count (150-450) k/uL Neutrophils # (1.3-7.7) k/uL Sodium 157 H (137-145) mmol/L Potassium (3.5-5.1) mmol/L Chloride 115 H (98-107) mmol/L Carbon Dioxide (22-30) mmol/L BUN 118 H* (9-20) mg/dL Creatinine 3.22 H (0.66-1.25) mg/dL Glucose 232 H (74-99) mg/dL POC Glucose (mg/dL) 217 H 257 H (70-110) mg/dL Hemoglobin A1c (<=6.0) % Plasma Lactic Acid Evaristo (0.7-2.0) mmol/L Calcium 11.2 H (8.4-10.2) mg/dL Creatine Kinase (55-170) U/L 11/14/24 11/14/24 11/14/24 Range/Units 04:06 05:01 06:00 WBC (3.8-10.6) k/uL MCHC (31.0-37.0) g/dL Plt Count (150-450) k/uL Neutrophils # (1.3-7.7) k/uL Sodium (137-145) mmol/L Potassium (3.5-5.1) mmol/L Chloride (98-107) mmol/L Carbon Dioxide (22-30) mmol/L BUN (9-20) mg/dL Creatinine (0.66-1.25) mg/dL Glucose (74-99) mg/dL POC Glucose (mg/dL) 295 H 281 H 313 H (70-110) mg/dL Hemoglobin A1c (<=6.0) % Plasma Lactic Acid Evaristo (0.7-2.0) mmol/L Calcium (8.4-10.2) mg/dL Creatine Kinase (55-170) U/L 11/14/24 11/14/24 11/14/24 Range/Units 06:10 06:10 06:10 WBC 18.9 H (3.8-10.6) k/uL MCHC 30.8 L (31.0-37.0) g/dL Plt Count 84 L (150-450) k/uL Neutrophils # 15.9 H (1.3-7.7) k/uL Sodium 153 H (137-145) mmol/L Potassium (3.5-5.1) mmol/L Chloride 116 H (98-107) mmol/L Carbon Dioxide 18 L (22-30) mmol/L BUN 110 H* (9-20) mg/dL Creatinine 2.91 H (0.66-1.25) mg/dL Glucose 336 H (74-99) mg/dL POC Glucose (mg/dL) (70-110) mg/dL Hemoglobin A1c 11.4 H (<=6.0) % Plasma Lactic Acid Evaristo (0.7-2.0) mmol/L Calcium 10.6 H (8.4-10.2) mg/dL Creatine Kinase 670 H (55-170) U/L 11/14/24 11/14/24 11/14/24 Range/Units 06:57 07:55 08:57 WBC (3.8-10.6) k/uL MCHC (31.0-37.0) g/dL Plt Count (150-450) k/uL Neutrophils # (1.3-7.7) k/uL Sodium (137-145) mmol/L Potassium (3.5-5.1) mmol/L Chloride (98-107) mmol/L Carbon Dioxide (22-30) mmol/L BUN (9-20) mg/dL Creatinine (0.66-1.25) mg/dL Glucose (74-99) mg/dL POC Glucose (mg/dL) 353 H 353 H 336 H (70-110) mg/dL Hemoglobin A1c (<=6.0) % Plasma Lactic Acid Evaristo (0.7-2.0) mmol/L Calcium (8.4-10.2) mg/dL Creatine Kinase (55-170) U/L 11/14/24 Range/Units 09:56 WBC (3.8-10.6) k/uL MCHC (31.0-37.0) g/dL Plt Count (150-450) k/uL Neutrophils # (1.3-7.7) k/uL Sodium (137-145) mmol/L Potassium (3.5-5.1) mmol/L Chloride (98-107) mmol/L Carbon Dioxide (22-30) mmol/L BUN (9-20) mg/dL Creatinine (0.66-1.25) mg/dL Glucose (74-99) mg/dL POC Glucose (mg/dL) 377 H (70-110) mg/dL Hemoglobin A1c (<=6.0) % Plasma Lactic Acid Evaristo (0.7-2.0) mmol/L Calcium (8.4-10.2) mg/dL Creatine Kinase (55-170) U/L Assessment and Plan Plan: Acute hyperglycemia with hyperosmolar nonketotic hyperglycemic state. Improving and the patient remains on insulin drip running at 4 units an hour and hourly bl ood sugar monitoring is being performed Acute hypernatremia secondary dehydration, currently on half-normal saline at rate of 150 cc an hour Altered mentation secondary to above. This is related to metabolic encephalopathy. CT scan of the brain and CT angiogram shows no evidence of an acute stroke. Neurologically, the patient is improving Non-anion gap metabolic acidosis Severe dehydration and intravascular volume depletion secondary to above Acute kidney injury, secondary to above versus related to intravascular volume depletion. No evidence of any hydronephrosis, improving Pseudohyponatremia. The sodium level is currently elevated as the patient's blood sugars are being adjusted and corrected. Lactic acidosis with a component of mild anion gap metabolic acidosis. Acetone is negative Rhabdomyolysis, mild Acute hypokalemia secondary to above, improving History of substance abuse with a positive urine drug screen for cocaine Carotid artery stenosis COPD, currently inactive and stable Chronic ILD/fibrosis, will need a CAT scan at a later stage Plan Switch the patient's IV fluids to half-normal saline at rate of 150 cc an hour along with 20 mg of potassium chloride Continue insulin drip Repeat electrolytes Hourly blood sugar monitoring Potassium level is normalized Monitor renal function and urine output, creatinine is improving Monitor sodium level, sodium level is improving Monitor mental status, improving Antibiotic coverage essentially empiric at this point in time Heparin subcu for DVT prophylaxis Aspiration precautions Allow soft diet Will continue to follow Will transfer to the intensive care unit
[2024-11-14 10:56] LABS: Glucose,Whole Blood 289 mg/dL (70-110)
--- NOTE | 2024-11-14 11:36 | P.PN ---
Subjective Progress Note Date: 11/14/24 Hospital Course: Patient is a 69-year-old male with history of diabetes presenting with altered mentation. In the ED, temperature was 97.5, pulse 113, respiratory rate 20, saturating at 100% on room air, blood pressure 118/68. WBC 17.6, platelet 139, INR 1.3, pH 7.26, pCO2 64, potassium 7.2 came down to 5.6, creatinine 4.48, anion gap 21, glucose 1276, lactic acid 4.8, total calcium 11.7, CK3 32, troponin 0.027, BNP 215, ketones negative, urinalysis shows 4+ glucose, toxicology positive for cocaine, respiratory viral panel negative. Head CT did not show any acute process. Chest x-ray independently interpreted, shows interstitial opacities bilateral. Head and neck CTA showed severe focal stenosis at the V3/V4 junction of the right vertebral artery, mild right ICA stenosis, severe 70% stenosis of left ICA. Renal ultrasound did not show any hydronephrosis. Patient admitted on insulin drip for HHS. Nephrology, pulmonology consulted. Patient also given IV antibiotics and IV fluids in the ER. Neurology and vascular surgery also consulted. Blood sugars have down trended with insulin drip, mental status has been improving. Subjective: Patient seen and examined at bedside. No acute events overnight. Patient has been becoming more alert, agitated. Pertinent positives and negatives as discussed above, a complete review of systems was performed and all other systems are negative. Vitals Signs Reviewed. General: Nontoxic, no distress, appears at stated age Derm: Warm, dry Head: Atraumatic, normocephalic, symmetric Eyes: EOMI, no lid lag, anicteric sclera Mouth: No lip lesion, mucus membranes moist Cardiovascular: S1S2 reg, tachycardic, no murmur Lungs: Bilateral rales, no accessory muscle use Abdominal: Soft, nontender to palpation, no guarding, no appreciable organomegaly Ext: No gross muscle atrophy, no edema, no contractures Neuro: CN II-XI grossly intact, no focal neuro deficits Psych: Alert, oriented x 2, appropriate affect, little agitated Data Reviewed Today: Pertinent Labs: WBC 18.9 please 84, sodium 153, bicarb 18, BUN 110, creatinine 2.91, calcium 10.6, blood sugars in the 300s, CK6 70 Imaging: Chest x-ray independently interpreted, shows bilateral interstitial opacities Assessment and Plan: Hyperosmolar hyperglycemic state Type 2 diabetes Acute metabolic encephalopathy Hypernatremia Acute kidney injury, resolving High anion gap metabolic acidosis Uremia Severe dehydration Mild rhabdomyolysis Leukocytosis Mild thrombocytopenia Polysubstance use, cocaine positive Carotid artery stenosis, focal vertebral artery stenosis COPD? -Continue half-normal saline at 50 cc an hour -Continue insulin drip, monitor blood sugars every hour -Empirically continue ceftriaxone 2 g IV every 24 hours, azithromycin 500 mg daily oral -Blood cultures, sputum cultures, Legionella urine antigen pending -ICU note reviewed, continue treatment as above may need chest CT later on -Nephrology following -Neurochecks, telemetry -Neurology also following, started patient on aspirin 325 daily -Patient may be withdrawing from cocaine as well, started on Ativan 1 mg IV every 6 hours as needed, monitor for sedation -Repeat labs tomorrow -Vascular surgery consulted Lactic acidosis, resolved Mild hyperkalemia, resolved Hyperkalemia, resolved DVT ppx: Subcu heparin Code status: Full code Anticipated discharge place: Pending clinical course Anticipated discharge time: Pending clinical course Objective - Vital Signs Vital signs: Vital Signs Temp 97.6 F 11/14/24 07:45 Pulse 104 H 11/14/24 10:06 Resp 20 11/14/24 10:06 BP 104/67 11/14/24 10:06 Pulse Ox 94 L 11/14/24 10:06 FiO2 Intake & Output 11/13/24 11/14/24 11/14/24 18:59 06:59 18:59 Intake Total 90.430 9.469 14.613 Output Total 5685 840 9242 Balance -1809.570 -365.531 -985.387 Intake: Intake, IV Titration 90.430 9.469 14.613 Amount Insulin Regular 100 unit 90.430 9.469 14.613 In Sodium Chloride 0.9% 100 ml @ 0.1 UNITS/KG/HR 10.537 mls/hr IV .Q9H36M [facility] Rx#:[id number] Output: Urine 0911 [id number] Male - External [address] (Puente) 220 375 - Labs CBC & Chem 7: 11/14/24 06:10 11/14/24 06:10 Labs: Abnormal Lab Results - Last 24 Hours (Table) 11/13/24 11/13/24 11/13/24 Range/Units 10:47 12:04 12:18 WBC (3.8-10.6) k/uL MCHC (31.0-37.0) g/dL Plt Count (150-450) k/uL Neutrophils # (1.3-7.7) k/uL Sodium 152 H (137-145) mmol/L Potassium 5.6 H (3.5-5.1) mmol/L Chloride 108 H (98-107) mmol/L Carbon Dioxide (22-30) mmol/L BUN 150 H* (9-20) mg/dL Creatinine 3.87 H (0.66-1.25) mg/dL Glucose 731 H* (74-99) mg/dL POC Glucose (mg/dL) >600 H* (70-110) mg/dL Hemoglobin A1c (<=6.0) % Osmolality (275-295) mOsm/kg Plasma Lactic Acid Evaristo 4.8 H* (0.7-2.0) mmol/L Calcium (8.4-10.2) mg/dL Creatine Kinase (55-170) U/L 11/13/24 11/13/24 11/13/24 Range/Units 13:02 14:06 14:36 WBC (3.8-10.6) k/uL MCHC (31.0-37.0) g/dL Plt Count (150-450) k/uL Neutrophils # (1.3-7.7) k/uL Sodium (137-145) mmol/L Potassium (3.5-5.1) mmol/L Chloride (98-107) mmol/L Carbon Dioxide (22-30) mmol/L BUN (9-20) mg/dL Creatinine (0.66-1.25) mg/dL Glucose (74-99) mg/dL POC Glucose (mg/dL) >600 H* >600 H* (70-110) mg/dL Hemoglobin A1c (<=6.0) % Osmolality (275-295) mOsm/kg Plasma Lactic Acid Evaristo 5.8 H* (0.7-2.0) mmol/L Calcium (8.4-10.2) mg/dL Creatine Kinase (55-170) U/L 11/13/24 11/13/24 11/13/24 Range/Units 15:04 16:07 16:13 WBC (3.8-10.6) k/uL MCHC (31.0-37.0) g/dL Plt Count (150-450) k/uL Neutrophils # (1.3-7.7) k/uL Sodium 160 H (137-145) mmol/L Potassium (3.5-5.1) mmol/L Chloride 119 H (98-107) mmol/L Carbon Dioxide (22-30) mmol/L BUN 126 H* (9-20) mg/dL Creatinine 3.12 H (0.66-1.25) mg/dL Glucose 186 H (74-99) mg/dL POC Glucose (mg/dL) 440 H 355 H (70-110) mg/dL Hemoglobin A1c (<=6.0) % Osmolality (275-295) mOsm/kg Plasma Lactic Acid Evaristo (0.7-2.0) mmol/L Calcium (8.4-10.2) mg/dL Creatine Kinase (55-170) U/L 11/13/24 11/13/24 11/13/24 Range/Units 17:00 18:04 18:28 WBC (3.8-10.6) k/uL MCHC (31.0-37.0) g/dL Plt Count (150-450) k/uL Neutrophils # (1.3-7.7) k/uL Sodium (137-145) mmol/L Potassium (3.5-5.1) mmol/L Chloride (98-107) mmol/L Carbon Dioxide (22-30) mmol/L BUN (9-20) mg/dL Creatinine (0.66-1.25) mg/dL Glucose (74-99) mg/dL POC Glucose (mg/dL) 191 H 266 H (70-110) mg/dL Hemoglobin A1c (<=6.0) % Osmolality (275-295) mOsm/kg Plasma Lactic Acid Evaristo 5.0 H* (0.7-2.0) mmol/L Calcium (8.4-10.2) mg/dL Creatine Kinase (55-170) U/L 11/13/24 11/13/24 11/13/24 Range/Units 19:02 19:58 21:12 WBC (3.8-10.6) k/uL MCHC (31.0-37.0) g/dL Plt Count (150-450) k/uL Neutrophils # (1.3-7.7) k/uL Sodium (137-145) mmol/L Potassium (3.5-5.1) mmol/L Chloride (98-107) mmol/L Carbon Dioxide (22-30) mmol/L BUN (9-20) mg/dL Creatinine (0.66-1.25) mg/dL Glucose (74-99) mg/dL POC Glucose (mg/dL) 185 H 119 H (70-110) mg/dL Hemoglobin A1c (<=6.0) % Osmolality (275-295) mOsm/kg Plasma Lactic Acid Evaristo 4.1 H* (0.7-2.0) mmol/L Calcium (8.4-10.2) mg/dL Creatine Kinase (55-170) U/L 11/13/24 11/13/24 11/13/24 Range/Units 21:34 22:03 23:15 WBC (3.8-10.6) k/uL MCHC (31.0-37.0) g/dL Plt Count (150-450) k/uL Neutrophils # (1.3-7.7) k/uL Sodium (137-145) mmol/L Potassium (3.5-5.1) mmol/L Chloride (98-107) mmol/L Carbon Dioxide (22-30) mmol/L BUN (9-20) mg/dL Creatinine (0.66-1.25) mg/dL Glucose (74-99) mg/dL POC Glucose (mg/dL) 237 H 162 H 166 H (70-110) mg/dL Hemoglobin A1c (<=6.0) % Osmolality (275-295) mOsm/kg Plasma Lactic Acid Evaristo (0.7-2.0) mmol/L Calcium (8.4-10.2) mg/dL Creatine Kinase (55-170) U/L 11/14/24 11/14/24 11/14/24 Range/Units 00:04 01:07 01:12 WBC (3.8-10.6) k/uL MCHC (31.0-37.0) g/dL Plt Count (150-450) k/uL Neutrophils # (1.3-7.7) k/uL Sodium (137-145) mmol/L Potassium (3.5-5.1) mmol/L Chloride (98-107) mmol/L Carbon Dioxide (22-30) mmol/L BUN (9-20) mg/dL Creatinine (0.66-1.25) mg/dL Glucose (74-99) mg/dL POC Glucose (mg/dL) 204 H 178 H (70-110) mg/dL Hemoglobin A1c (<=6.0) % Osmolality 381 H (275-295) mOsm/kg Plasma Lactic Acid Evaristo (0.7-2.0) mmol/L Calcium (8.4-10.2) mg/dL Creatine Kinase (55-170) U/L 11/14/24 11/14/24 11/14/24 Range/Units 01:12 02:05 03:07 WBC (3.8-10.6) k/uL MCHC (31.0-37.0) g/dL Plt Count (150-450) k/uL Neutrophils # (1.3-7.7) k/uL Sodium 157 H (137-145) mmol/L Potassium (3.5-5.1) mmol/L Chloride 115 H (98-107) mmol/L Carbon Dioxide (22-30) mmol/L BUN 118 H* (9-20) mg/dL Creatinine 3.22 H (0.66-1.25) mg/dL Glucose 232 H (74-99) mg/dL POC Glucose (mg/dL) 217 H 257 H (70-110) mg/dL Hemoglobin A1c (<=6.0) % Osmolality (275-295) mOsm/kg Plasma Lactic Acid Evaristo (0.7-2.0) mmol/L Calcium 11.2 H (8.4-10.2) mg/dL Creatine Kinase (55-170) U/L 11/14/24 11/14/24 11/14/24 Range/Units 04:06 05:01 06:00 WBC (3.8-10.6) k/uL MCHC (31.0-37.0) g/dL Plt Count (150-450) k/uL Neutrophils # (1.3-7.7) k/uL Sodium (137-145) mmol/L Potassium (3.5-5.1) mmol/L Chloride (98-107) mmol/L Carbon Dioxide (22-30) mmol/L BUN (9-20) mg/dL Creatinine (0.66-1.25) mg/dL Glucose (74-99) mg/dL POC Glucose (mg/dL) 295 H 281 H 313 H (70-110) mg/dL Hemoglobin A1c (<=6.0) % Osmolality (275-295) mOsm/kg Plasma Lactic Acid Evaristo (0.7-2.0) mmol/L Calcium (8.4-10.2) mg/dL Creatine Kinase (55-170) U/L 11/14/24 11/14/24 11/14/24 Range/Units 06:10 06:10 06:10 WBC 18.9 H (3.8-10.6) k/uL MCHC 30.8 L (31.0-37.0) g/dL Plt Count 84 L (150-450) k/uL Neutrophils # 15.9 H (1.3-7.7) k/uL Sodium 153 H (137-145) mmol/L Potassium (3.5-5.1) mmol/L Chloride 116 H (98-107) mmol/L Carbon Dioxide 18 L (22-30) mmol/L BUN 110 H* (9-20) mg/dL Creatinine 2.91 H (0.66-1.25) mg/dL Glucose 336 H (74-99) mg/dL POC Glucose (mg/dL) (70-110) mg/dL Hemoglobin A1c 11.4 H (<=6.0) % Osmolality (275-295) mOsm/kg Plasma Lactic Acid Evaristo (0.7-2.0) mmol/L Calcium 10.6 H (8.4-10.2) mg/dL Creatine Kinase 670 H (55-170) U/L 11/14/24 11/14/24 11/14/24 Range/Units 06:57 07:55 08:57 WBC (3.8-10.6) k/uL MCHC (31.0-37.0) g/dL Plt Count (150-450) k/uL Neutrophils # (1.3-7.7) k/uL Sodium (137-145) mmol/L Potassium (3.5-5.1) mmol/L Chloride (98-107) mmol/L Carbon Dioxide (22-30) mmol/L BUN (9-20) mg/dL Creatinine (0.66-1.25) mg/dL Glucose (74-99) mg/dL POC Glucose (mg/dL) 353 H 353 H 336 H (70-110) mg/dL Hemoglobin A1c (<=6.0) % Osmolality (275-295) mOsm/kg Plasma Lactic Acid Evaristo (0.7-2.0) mmol/L Calcium (8.4-10.2) mg/dL Creatine Kinase (55-170) U/L 11/14/24 11/14/24 Range/Units 09:56 10:55 WBC (3.8-10.6) k/uL MCHC (31.0-37.0) g/dL Plt Count (150-450) k/uL Neutrophils # (1.3-7.7) k/uL Sodium (137-145) mmol/L Potassium (3.5-5.1) mmol/L Chloride (98-107) mmol/L Carbon Dioxide (22-30) mmol/L BUN (9-20) mg/dL Creatinine (0.66-1.25) mg/dL Glucose (74-99) mg/dL POC Glucose (mg/dL) 377 H 289 H (70-110) mg/dL Hemoglobin A1c (<=6.0) % Osmolality (275-295) mOsm/kg Plasma Lactic Acid Evaristo (0.7-2.0) mmol/L Calcium (8.4-10.2) mg/dL Creatine Kinase (55-170) U/L
[2024-11-14 11:51] LABS: African American GFR (CKD) 25 (>60 ml/min/1.73 sqM); Anion Gap 11 mmol/L; Calcium 10.4 mg/dL (8.4-10.2); Carbon Dioxide 26 mmol/L (22-30); Chloride 118 mmol/L (98-107); Glucose 225 mg/dL (74-99); Non-African American GFR(CKD) 21 (>60 ml/min/1.73 sqM); Potassium 3.9 mmol/L (3.5-5.1); Sodium 155 mmol/L (137-145)
[2024-11-14 12:03] LABS: Blood Urea Nitrogen 102 mg/dL (9-20)
[2024-11-14 12:04] LABS: Glucose,Whole Blood 220 mg/dL (70-110)
--- NOTE | 2024-11-14 12:11 | P.PN ---
Subjective Patient is seen for follow-up for hyperkalemia and hyperosmolar nonketotic state. Blood sugar has improved. It was down to 185 yesterday and fluids were switched to D5.45. It appears her blood sugar started to increase again to 300 range and IV fluids were switched to half-normal saline. Serum sodium is at 153 today. Corrected sodium on admission was 159 (Zuniga), adjusted for hyperglycemia. Serum creatinine at 2.89. Urine output charted at 2.2 L for 24 hours. Patient is hemodynamically stable however he remains encephalopathic. Barely a rousable does not communicate. Objective - Vital Signs Vital signs: Vital Signs Temp 97.6 F 11/14/24 07:45 Pulse 104 H 11/14/24 10:06 Resp 20 11/14/24 10:06 BP 104/67 11/14/24 10:06 Pulse Ox 94 L 11/14/24 10:06 FiO2 Intake & Output 11/13/24 11/14/24 11/14/24 18:59 06:59 18:59 Intake Total 90.430 9.469 14.613 Output Total 7823 387 4869 Balance -1809.570 -365.531 -985.387 Intake: Intake, IV Titration 90.430 9.469 14.613 Amount Insulin Regular 100 unit 90.430 9.469 14.613 In Sodium Chloride 0.9% 100 ml @ 0.1 UNITS/KG/HR 10.537 mls/hr IV .[id number] [facility] Rx#:[id number] Output: Urine 2742 480 0532 Male - External 530 [address]ther[address] (Puente) 220 375 - Exam Patient is awake, comfortable, no acute distress. Examination of the heart S1 and S2 Examination of the lungs bilateral breath sounds are heard Abdomen is soft nontender Examination lower extremity shows no significant edema Patient is able to move all 4 extremities. - Labs CBC & Chem 7: 11/14/24 06:10 11/14/24 06:10 Labs: Abnormal Lab Results - Last 24 Hours (Table) 11/13/24 11/13/24 11/13/24 Range/Units 10:47 12:04 12:18 WBC (3.8-10.6) k/uL MCHC (31.0-37.0) g/dL Plt Count (150-450) k/uL Neutrophils # (1.3-7.7) k/uL Sodium 152 H (137-145) mmol/L Potassium 5.6 H (3.5-5.1) mmol/L Chloride 108 H (98-107) mmol/L Carbon Dioxide (22-30) mmol/L BUN 150 H* (9-20) mg/dL Creatinine 3.87 H (0.66-1.25) mg/dL Glucose 731 H* (74-99) mg/dL POC Glucose (mg/dL) >600 H* (70-110) mg/dL Hemoglobin A1c (<=6.0) % Osmolality (275-295) mOsm/kg Plasma Lactic Acid Evaristo 4.8 H* (0.7-2.0) mmol/L Calcium (8.4-10.2) mg/dL Creatine Kinase (55-170) U/L 11/13/24 11/13/24 11/13/24 Range/Units 13:02 14:06 14:36 WBC (3.8-10.6) k/uL MCHC (31.0-37.0) g/dL Plt Count (150-450) k/uL Neutrophils # (1.3-7.7) k/uL Sodium (137-145) mmol/L Potassium (3.5-5.1) mmol/L Chloride (98-107) mmol/L Carbon Dioxide (22-30) mmol/L BUN (9-20) mg/dL Creatinine (0.66-1.25) mg/dL Glucose (74-99) mg/dL POC Glucose (mg/dL) >600 H* >600 H* (70-110) mg/dL Hemoglobin A1c (<=6.0) % Osmolality (275-295) mOsm/kg Plasma Lactic Acid Evaristo 5.8 H* (0.7-2.0) mmol/L Calcium (8.4-10.2) mg/dL Creatine Kinase (55-170) U/L 11/13/24 11/13/24 11/13/24 Range/Units 15:04 16:07 16:13 WBC (3.8-10.6) k/uL MCHC (31.0-37.0) g/dL Plt Count (150-450) k/uL Neutrophils # (1.3-7.7) k/uL Sodium 160 H (137-145) mmol/L Potassium (3.5-5.1) mmol/L Chloride 119 H (98-107) mmol/L Carbon Dioxide (22-30) mmol/L BUN 126 H* (9-20) mg/dL Creatinine 3.12 H (0.66-1.25) mg/dL Glucose 186 H (74-99) mg/dL POC Glucose (mg/dL) 440 H 355 H (70-110) mg/dL Hemoglobin A1c (<=6.0) % Osmolality (275-295) mOsm/kg Plasma Lactic Acid Evaristo (0.7-2.0) mmol/L Calcium (8.4-10.2) mg/dL Creatine Kinase (55-170) U/L 11/13/24 11/13/24 11/13/24 Range/Units 17:00 18:04 18:28 WBC (3.8-10.6) k/uL MCHC (31.0-37.0) g/dL Plt Count (150-450) k/uL Neutrophils # (1.3-7.7) k/uL Sodium (137-145) mmol/L Potassium (3.5-5.1) mmol/L Chloride (98-107) mmol/L Carbon Dioxide (22-30) mmol/L BUN (9-20) mg/dL Creatinine (0.66-1.25) mg/dL Glucose (74-99) mg/dL POC Glucose (mg/dL) 191 H 266 H (70-110) mg/dL Hemoglobin A1c (<=6.0) % Osmolality (275-295) mOsm/kg Plasma Lactic Acid Evaristo 5.0 H* (0.7-2.0) mmol/L Calcium (8.4-10.2) mg/dL Creatine Kinase (55-170) U/L 11/13/24 11/13/24 11/13/24 Range/Units 19:02 19:58 21:12 WBC (3.8-10.6) k/uL MCHC (31.0-37.0) g/dL Plt Count (150-450) k/uL Neutrophils # (1.3-7.7) k/uL Sodium (137-145) mmol/L Potassium (3.5-5.1) mmol/L Chloride (98-107) mmol/L Carbon Dioxide (22-30) mmol/L BUN (9-20) mg/dL Creatinine (0.66-1.25) mg/dL Glucose (74-99) mg/dL POC Glucose (mg/dL) 185 H 119 H (70-110) mg/dL Hemoglobin A1c (<=6.0) % Osmolality (275-295) mOsm/kg Plasma Lactic Acid Evaristo 4.1 H* (0.7-2.0) mmol/L Calcium (8.4-10.2) mg/dL Creatine Kinase (55-170) U/L 11/13/24 11/13/24 11/13/24 Range/Units 21:34 22:03 23:15 WBC (3.8-10.6) k/uL MCHC (31.0-37.0) g/dL Plt Count (150-450) k/uL Neutrophils # (1.3-7.7) k/uL Sodium (137-145) mmol/L Potassium (3.5-5.1) mmol/L Chloride (98-107) mmol/L Carbon Dioxide (22-30) mmol/L BUN (9-20) mg/dL Creatinine (0.66-1.25) mg/dL Glucose (74-99) mg/dL POC Glucose (mg/dL) 237 H 162 H 166 H (70-110) mg/dL Hemoglobin A1c (<=6.0) % Osmolality (275-295) mOsm/kg Plasma Lactic Acid Evaristo (0.7-2.0) mmol/L Calcium (8.4-10.2) mg/dL Creatine Kinase (55-170) U/L 11/14/24 11/14/24 11/14/24 Range/Units 00:04 01:07 01:12 WBC (3.8-10.6) k/uL MCHC (31.0-37.0) g/dL Plt Count (150-450) k/uL Neutrophils # (1.3-7.7) k/uL Sodium (137-145) mmol/L Potassium (3.5-5.1) mmol/L Chloride (98-107) mmol/L Carbon Dioxide (22-30) mmol/L BUN (9-20) mg/dL Creatinine (0.66-1.25) mg/dL Glucose (74-99) mg/dL POC Glucose (mg/dL) 204 H 178 H (70-110) mg/dL Hemoglobin A1c (<=6.0) % Osmolality 381 H (275-295) mOsm/kg Plasma Lactic Acid Evaristo (0.7-2.0) mmol/L Calcium (8.4-10.2) mg/dL Creatine Kinase (55-170) U/L 11/14/24 11/14/24 11/14/24 Range/Units 01:12 02:05 03:07 WBC (3.8-10.6) k/uL MCHC (31.0-37.0) g/dL Plt Count (150-450) k/uL Neutrophils # (1.3-7.7) k/uL Sodium 157 H (137-145) mmol/L Potassium (3.5-5.1) mmol/L Chloride 115 H (98-107) mmol/L Carbon Dioxide (22-30) mmol/L BUN 118 H* (9-20) mg/dL Creatinine 3.22 H (0.66-1.25) mg/dL Glucose 232 H (74-99) mg/dL POC Glucose (mg/dL) 217 H 257 H (70-110) mg/dL Hemoglobin A1c (<=6.0) % Osmolality (275-295) mOsm/kg Plasma Lactic Acid Evaristo (0.7-2.0) mmol/L Calcium 11.2 H (8.4-10.2) mg/dL Creatine Kinase (55-170) U/L 11/14/24 11/14/24 11/14/24 Range/Units 04:06 05:01 06:00 WBC (3.8-10.6) k/uL MCHC (31.0-37.0) g/dL Plt Count (150-450) k/uL Neutrophils # (1.3-7.7) k/uL Sodium (137-145) mmol/L Potassium (3.5-5.1) mmol/L Chloride (98-107) mmol/L Carbon Dioxide (22-30) mmol/L BUN (9-20) mg/dL Creatinine (0.66-1.25) mg/dL Glucose (74-99) mg/dL POC Glucose (mg/dL) 295 H 281 H 313 H (70-110) mg/dL Hemoglobin A1c (<=6.0) % Osmolality (275-295) mOsm/kg Plasma Lactic Acid Evaristo (0.7-2.0) mmol/L Calcium (8.4-10.2) mg/dL Creatine Kinase (55-170) U/L 11/14/24 11/14/24 11/14/24 Range/Units 06:10 06:10 06:10 WBC 18.9 H (3.8-10.6) k/uL MCHC 30.8 L (31.0-37.0) g/dL Plt Count 84 L (150-450) k/uL Neutrophils # 15.9 H (1.3-7.7) k/uL Sodium 153 H (137-145) mmol/L Potassium (3.5-5.1) mmol/L Chloride 116 H (98-107) mmol/L Carbon Dioxide 18 L (22-30) mmol/L BUN 110 H* (9-20) mg/dL Creatinine 2.91 H (0.66-1.25) mg/dL Glucose 336 H (74-99) mg/dL POC Glucose (mg/dL) (70-110) mg/dL Hemoglobin A1c 11.4 H (<=6.0) % Osmolality (275-295) mOsm/kg Plasma Lactic Acid Evaristo (0.7-2.0) mmol/L Calcium 10.6 H (8.4-10.2) mg/dL Creatine Kinase 670 H (55-170) U/L 11/14/24 11/14/24 11/14/24 Range/Units 06:57 07:55 08:57 WBC (3.8-10.6) k/uL MCHC (31.0-37.0) g/dL Plt Count (150-450) k/uL Neutrophils # (1.3-7.7) k/uL Sodium (137-145) mmol/L Potassium (3.5-5.1) mmol/L Chloride (98-107) mmol/L Carbon Dioxide (22-30) mmol/L BUN (9-20) mg/dL Creatinine (0.66-1.25) mg/dL Glucose (74-99) mg/dL POC Glucose (mg/dL) 353 H 353 H 336 H (70-110) mg/dL Hemoglobin A1c (<=6.0) % Osmolality (275-295) mOsm/kg Plasma Lactic Acid Evaristo (0.7-2.0) mmol/L Calcium (8.4-10.2) mg/dL Creatine Kinase (55-170) U/L 11/14/24 11/14/24 Range/Units 09:56 10:55 WBC (3.8-10.6) k/uL MCHC (31.0-37.0) g/dL Plt Count (150-450) k/uL Neutrophils # (1.3-7.7) k/uL Sodium (137-145) mmol/L Potassium (3.5-5.1) mmol/L Chloride (98-107) mmol/L Carbon Dioxide (22-30) mmol/L BUN (9-20) mg/dL Creatinine (0.66-1.25) mg/dL Glucose (74-99) mg/dL POC Glucose (mg/dL) 377 H 289 H (70-110) mg/dL Hemoglobin A1c (<=6.0) % Osmolality (275-295) mOsm/kg Plasma Lactic Acid Evaristo (0.7-2.0) mmol/L Calcium (8.4-10.2) mg/dL Creatine Kinase (55-170) U/L Assessment and Plan Assessment: 1. Acute kidney injury associated with severe volume depletion hyper osmolar nonketotic diabetic state. Nonoliguric. UA is benign. No previous labs available for comparison. 2. Hypernatremia associated with free water deficit. Serum sodium was 140 on admission which was falsely low due to severe hyperglycemia. Corrected sodium is 159. Currently maintained on normal saline which is appropriate. 3. Hyperkalemia associated with acute severe hyperglycemia and acute kidney injury. Improved with improved blood sugar level 4. History of polysubstance abuse with drug screen positive for cocaine 5. Respiratory acidosis with CO2 retention 6. Mental status changes secondary to metabolic encephalopathy Plan: Continue with 0.45 normal saline Continue to monitor electrolytes frequently. Patient is mildly acidotic. He may need IV bicarb.
--- NOTE | 2024-11-14 12:29 | P.GSCN ---
History of Present Illness Consult date: 11/14/24 Reason for Consult: Carotid stenosis, Vertebral artery stenosis Requesting physician: Dustin Morrissey History of present illness: This is a 69-year-old -[place] male who was brought in by EMS for al tered mental status changes. Patient was found on the floor and confused yesterday and brought in for further evaluation. Apparently his last well-known status was the night before. Code stroke was activated on admission. Patient was not a candidate for tPA secondary to unknown well status. He had a brain CT with no acute ischemic changes. CTA head and neck revealed vertebral artery small in caliber focal stenosis at the junction of the right vertebral artery, severe 70% stenosis involving the upper left ICA. Vascular surgery was consulted for ICA stenosis. Patient currently denies any focal deficits. He was positive for cocaine. Past medical history includes hypertension, GERD, an billy, diabetes mellitus however patient is noncompliant with his medications. Patient came in with significantly altered labs included hyperkalemia, hyperglycemia, lactic acidosis, and rhabdomyolysis. He was seen by neurology who believes symptoms were likely related to metabolic encephalopathy. Review of Systems A 14 point review systems was completed all pertinent positives and negatives as stated in the HPI. Past Medical History Past Medical History: Chest Pain / Angina, COPD, Diabetes Mellitus, GERD/Reflux, Hypertension Additional Past Medical History / Comment(s): BACK PAIN, SLIGHT KLUTI KAAH. History of Any Multi-Drug Resistant Organisms: None Reported Past Surgical History: Hernia Repair Additional Past Surgical History / Comment(s): NASAL SURGERY, RT ANKLE PINS & SCREWS. Past Anesthesia/Blood Transfusion Reactions: No Reported Reaction Past Psychological History: Depression Past Alcohol Use History: Occasional Past Drug Use History: None Reported - Past Family History Mother Family Medical History: No Reported History Medications and Allergies Home Medications Medication Instructions Recorded Confirmed Type No Known Home Medications 11/13/24 11/13/24 History Allergies Allergy/AdvReac Type Severity Reaction Status Date / Time morphine Allergy Unknown Itching Verified 11/13/24 09:47 tramadol Allergy Unknown Itching Verified 11/13/24 09:47 Surgical - Exam Vital Signs Temp Pulse Resp BP Pulse Ox 97.5 F L 113 H 20 118/68 100 11/13/24 06:37 11/13/24 06:37 11/13/24 06:37 11/13/24 06:37 11/13/24 06:37 General appearance: The patient is alert, oriented, appears in no acute distress. HET: Head is normocephalic and atraumatic. Pupils are equal and reactive. Neck: Supple. No bruit. Heart: Regular. Lungs: Equal expansion, normal respiratory effort. Abdomen: Soft, nontender, nondistended. Extremities: Normal skin color and turgor. Neurological: No focal deficits. Strength and sensation are grossly intact. Results - Labs 11/14/24 06:10 11/14/24 11:17 Abnormal Lab Results - Last 24 Hours (Table) 11/13/24 11/13/24 11/13/24 Range/Units 12:18 13:02 14:06 WBC (3.8-10.6) k/uL MCHC (31.0-37.0) g/dL Plt Count (150-450) k/uL Neutrophils # (1.3-7.7) k/uL Sodium 152 H (137-145) mmol/L Potassium 5.6 H (3.5-5.1) mmol/L Chloride 108 H (98-107) mmol/L Carbon Dioxide (22-30) mmol/L BUN 150 H* (9-20) mg/dL Creatinine 3.87 H (0.66-1.25) mg/dL Glucose 731 H* (74-99) mg/dL POC Glucose (mg/dL) >600 H* >600 H* (70-110) mg/dL Hemoglobin A1c (<=6.0) % Osmolality (275-295) mOsm/kg Plasma Lactic Acid Evaristo (0.7-2.0) mmol/L Calcium (8.4-10.2) mg/dL Creatine Kinase (55-170) U/L 11/13/24 11/13/24 11/13/24 Range/Units 14:36 15:04 16:07 WBC (3.8-10.6) k/uL MCHC (31.0-37.0) g/dL Plt Count (150-450) k/uL Neutrophils # (1.3-7.7) k/uL Sodium (137-145) mmol/L Potassium (3.5-5.1) mmol/L Chloride (98-107) mmol/L Carbon Dioxide (22-30) mmol/L BUN (9-20) mg/dL Creatinine (0.66-1.25) mg/dL Glucose (74-99) mg/dL POC Glucose (mg/dL) 440 H 355 H (70-110) mg/dL Hemoglobin A1c (<=6.0) % Osmolality (275-295) mOsm/kg Plasma Lactic Acid Evaristo 5.8 H* (0.7-2.0) mmol/L Calcium (8.4-10.2) mg/dL Creatine Kinase (55-170) U/L 11/13/24 11/13/24 11/13/24 Range/Units 16:13 17:00 18:04 WBC (3.8-10.6) k/uL MCHC (31.0-37.0) g/dL Plt Count (150-450) k/uL Neutrophils # (1.3-7.7) k/uL Sodium 160 H (137-145) mmol/L Potassium (3.5-5.1) mmol/L Chloride 119 H (98-107) mmol/L Carbon Dioxide (22-30) mmol/L BUN 126 H* (9-20) mg/dL Creatinine 3.12 H (0.66-1.25) mg/dL Glucose 186 H (74-99) mg/dL POC Glucose (mg/dL) 191 H 266 H (70-110) mg/dL Hemoglobin A1c (<=6.0) % Osmolality (275-295) mOsm/kg Plasma Lactic Acid Evaristo (0.7-2.0) mmol/L Calcium (8.4-10.2) mg/dL Creatine Kinase (55-170) U/L 11/13/24 11/13/24 11/13/24 Range/Units 18:28 19:02 19:58 WBC (3.8-10.6) k/uL MCHC (31.0-37.0) g/dL Plt Count (150-450) k/uL Neutrophils # (1.3-7.7) k/uL Sodium (137-145) mmol/L Potassium (3.5-5.1) mmol/L Chloride (98-107) mmol/L Carbon Dioxide (22-30) mmol/L BUN (9-20) mg/dL Creatinine (0.66-1.25) mg/dL Glucose (74-99) mg/dL POC Glucose (mg/dL) 185 H 119 H (70-110) mg/dL Hemoglobin A1c (<=6.0) % Osmolality (275-295) mOsm/kg Plasma Lactic Acid Evaristo 5.0 H* (0.7-2.0) mmol/L Calcium (8.4-10.2) mg/dL Creatine Kinase (55-170) U/L 11/13/24 11/13/24 11/13/24 Range/Units 21:12 21:34 22:03 WBC (3.8-10.6) k/uL MCHC (31.0-37.0) g/dL Plt Count (150-450) k/uL Neutrophils # (1.3-7.7) k/uL Sodium (137-145) mmol/L Potassium (3.5-5.1) mmol/L Chloride (98-107) mmol/L Carbon Dioxide (22-30) mmol/L BUN (9-20) mg/dL Creatinine (0.66-1.25) mg/dL Glucose (74-99) mg/dL POC Glucose (mg/dL) 237 H 162 H (70-110) mg/dL Hemoglobin A1c (<=6.0) % Osmolality (275-295) mOsm/kg Plasma Lactic Acid Evaristo 4.1 H* (0.7-2.0) mmol/L Calcium (8.4-10.2) mg/dL Creatine Kinase (55-170) U/L 11/13/24 11/14/24 11/14/24 Range/Units 23:15 00:04 01:07 WBC (3.8-10.6) k/uL MCHC (31.0-37.0) g/dL Plt Count (150-450) k/uL Neutrophils # (1.3-7.7) k/uL Sodium (137-145) mmol/L Potassium (3.5-5.1) mmol/L Chloride (98-107) mmol/L Carbon Dioxide (22-30) mmol/L BUN (9-20) mg/dL Creatinine (0.66-1.25) mg/dL Glucose (74-99) mg/dL POC Glucose (mg/dL) 166 H 204 H 178 H (70-110) mg/dL Hemoglobin A1c (<=6.0) % Osmolality (275-295) mOsm/kg Plasma Lactic Acid Evaristo (0.7-2.0) mmol/L Calcium (8.4-10.2) mg/dL Creatine Kinase (55-170) U/L 11/14/24 11/14/24 11/14/24 Range/Units 01:12 01:12 02:05 WBC (3.8-10.6) k/uL MCHC (31.0-37.0) g/dL Plt Count (150-450) k/uL Neutrophils # (1.3-7.7) k/uL Sodium 157 H (137-145) mmol/L Potassium (3.5-5.1) mmol/L Chloride 115 H (98-107) mmol/L Carbon Dioxide (22-30) mmol/L BUN 118 H* (9-20) mg/dL Creatinine 3.22 H (0.66-1.25) mg/dL Glucose 232 H (74-99) mg/dL POC Glucose (mg/dL) 217 H (70-110) mg/dL Hemoglobin A1c (<=6.0) % Osmolality 381 H (275-295) mOsm/kg Plasma Lactic Acid Evaristo (0.7-2.0) mmol/L Calcium 11.2 H (8.4-10.2) mg/dL Creatine Kinase (55-170) U/L 11/14/24 11/14/24 11/14/24 Range/Units 03:07 04:06 05:01 WBC (3.8-10.6) k/uL MCHC (31.0-37.0) g/dL Plt Count (150-450) k/uL Neutrophils # (1.3-7.7) k/uL Sodium (137-145) mmol/L Potassium (3.5-5.1) mmol/L Chloride (98-107) mmol/L Carbon Dioxide (22-30) mmol/L BUN (9-20) mg/dL Creatinine (0.66-1.25) mg/dL Glucose (74-99) mg/dL POC Glucose (mg/dL) 257 H 295 H 281 H (70-110) mg/dL Hemoglobin A1c (<=6.0) % Osmolality (275-295) mOsm/kg Plasma Lactic Acid Evaristo (0.7-2.0) mmol/L Calcium (8.4-10.2) mg/dL Creatine Kinase (55-170) U/L 11/14/24 11/14/24 11/14/24 Range/Units 06:00 06:10 06:10 WBC 18.9 H (3.8-10.6) k/uL MCHC 30.8 L (31.0-37.0) g/dL Plt Count 84 L (150-450) k/uL Neutrophils # 15.9 H (1.3-7.7) k/uL Sodium (137-145) mmol/L Potassium (3.5-5.1) mmol/L Chloride (98-107) mmol/L Carbon Dioxide (22-30) mmol/L BUN (9-20) mg/dL Creatinine (0.66-1.25) mg/dL Glucose (74-99) mg/dL POC Glucose (mg/dL) 313 H (70-110) mg/dL Hemoglobin A1c 11.4 H (<=6.0) % Osmolality (275-295) mOsm/kg Plasma Lactic Acid Evaristo (0.7-2.0) mmol/L Calcium (8.4-10.2) mg/dL Creatine Kinase (55-170) U/L 11/14/24 11/14/24 11/14/24 Range/Units 06:10 06:57 07:55 WBC (3.8-10.6) k/uL MCHC (31.0-37.0) g/dL Plt Count (150-450) k/uL Neutrophils # (1.3-7.7) k/uL Sodium 153 H (137-145) mmol/L Potassium (3.5-5.1) mmol/L Chloride 116 H (98-107) mmol/L Carbon Dioxide 18 L (22-30) mmol/L BUN 110 H* (9-20) mg/dL Creatinine 2.91 H (0.66-1.25) mg/dL Glucose 336 H (74-99) mg/dL POC Glucose (mg/dL) 353 H 353 H (70-110) mg/dL Hemoglobin A1c (<=6.0) % Osmolality (275-295) mOsm/kg Plasma Lactic Acid Evaristo (0.7-2.0) mmol/L Calcium 10.6 H (8.4-10.2) mg/dL Creatine Kinase 670 H (55-170) U/L 11/14/24 11/14/24 11/14/24 Range/Units 08:57 09:56 10:55 WBC (3.8-10.6) k/uL MCHC (31.0-37.0) g/dL Plt Count (150-450) k/uL Neutrophils # (1.3-7.7) k/uL Sodium (137-145) mmol/L Potassium (3.5-5.1) mmol/L Chloride (98-107) mmol/L Carbon Dioxide (22-30) mmol/L BUN (9-20) mg/dL Creatinine (0.66-1.25) mg/dL Glucose (74-99) mg/dL POC Glucose (mg/dL) 336 H 377 H 289 H (70-110) mg/dL Hemoglobin A1c (<=6.0) % Osmolality (275-295) mOsm/kg Plasma Lactic Acid Evaristo (0.7-2.0) mmol/L Calcium (8.4-10.2) mg/dL Creatine Kinase (55-170) U/L 11/14/24 11/14/24 Range/Units 11:17 12:02 WBC (3.8-10.6) k/uL MCHC (31.0-37.0) g/dL Plt Count (150-450) k/uL Neutrophils # (1.3-7.7) k/uL Sodium 155 H (137-145) mmol/L Potassium (3.5-5.1) mmol/L Chloride 118 H (98-107) mmol/L Carbon Dioxide (22-30) mmol/L BUN 102 H* (9-20) mg/dL Creatinine 2.89 H (0.66-1.25) mg/dL Glucose 225 H (74-99) mg/dL POC Glucose (mg/dL) 220 H (70-110) mg/dL Hemoglobin A1c (<=6.0) % Osmolality (275-295) mOsm/kg Plasma Lactic Acid Evaristo (0.7-2.0) mmol/L Calcium 10.4 H (8.4-10.2) mg/dL Creatine Kinase (55-170) U/L Diabetes panel 11/13/24 11/13/24 11/14/24 Range/Units 12:18 16:13 01:12 Sodium 152 H 160 H 157 H (137-145) mmol/L Potassium 5.6 H 3.8 4.7 (3.5-5.1) mmol/L Chloride 108 H 119 H 115 H (98-107) mmol/L Carbon Dioxide 22 29 30 (22-30) mmol/L BUN 150 H* 126 H* 118 H* (9-20) mg/dL Creatinine 3.87 H 3.12 H 3.22 H (0.66-1.25) mg/dL Glucose 731 H* 186 H 232 H (74-99) mg/dL Hemoglobin A1c (<=6.0) % Calcium 11.2 H (8.4-10.2) mg/dL AST 32 (17-59) U/L ALT 21 (4-49) U/L Alkaline Phosphatase 83 (38-126) U/L Total Protein 6.7 (6.3-8.2) g/dL Albumin 3.8 (3.5-5.0) g/dL Triglycerides HDL Cholesterol 11/14/24 11/14/24 11/14/24 Range/Units 06:10 06:10 11:17 Sodium 153 H 155 H (137-145) mmol/L Potassium 4.8 3.9 (3.5-5.1) mmol/L Chloride 116 H 118 H (98-107) mmol/L Carbon Dioxide 18 L 26 (22-30) mmol/L BUN 110 H* 102 H* (9-20) mg/dL Creatinine 2.91 H 2.89 H (0.66-1.25) mg/dL Glucose 336 H 225 H (74-99) mg/dL Hemoglobin A1c 11.4 H (<=6.0) % Calcium 10.6 H 10.4 H (8.4-10.2) mg/dL AST 39 (17-59) U/L ALT 21 (4-49) U/L Alkaline Phosphatase 91 (38-126) U/L Total Protein 6.6 (6.3-8.2) g/dL Albumin 3.6 (3.5-5.0) g/dL Triglycerides Cancelled HDL Cholesterol Cancelled Calcium panel 11/13/24 11/13/24 11/14/24 Range/Units 12:18 16:13 01:12 Calcium 11.2 H (8.4-10.2) mg/dL Phosphorus 4.1 2.8 (2.5-4.5) mg/dL Albumin 3.8 (3.5-5.0) g/dL 11/14/24 11/14/24 Range/Units 06:10 11:17 Calcium 10.6 H 10.4 H (8.4-10.2) mg/dL Phosphorus (2.5-4.5) mg/dL Albumin 3.6 (3.5-5.0) g/dL Pituitary panel 11/13/24 11/13/24 11/14/24 Range/Units 12:18 16:13 01:12 Sodium 152 H 160 H 157 H (137-145) mmol/L Potassium 5.6 H 3.8 4.7 (3.5-5.1) mmol/L Chloride 108 H 119 H 115 H (98-107) mmol/L Carbon Dioxide 22 29 30 (22-30) mmol/L BUN 150 H* 126 H* 118 H* (9-20) mg/dL Creatinine 3.87 H 3.12 H 3.22 H (0.66-1.25) mg/dL Glucose 731 H* 186 H 232 H (74-99) mg/dL Calcium 11.2 H (8.4-10.2) mg/dL 11/14/24 11/14/24 Range/Units 06:10 11:17 Sodium 153 H 155 H (137-145) mmol/L Potassium 4.8 3.9 (3.5-5.1) mmol/L Chloride 116 H 118 H (98-107) mmol/L Carbon Dioxide 18 L 26 (22-30) mmol/L BUN 110 H* 102 H* (9-20) mg/dL Creatinine 2.91 H 2.89 H (0.66-1.25) mg/dL Glucose 336 H 225 H (74-99) mg/dL Calcium 10.6 H 10.4 H (8.4-10.2) mg/dL Adrenal panel 11/13/24 11/13/24 11/14/24 Range/Units 12:18 16:13 01:12 Sodium 152 H 160 H 157 H (137-145) mmol/L Potassium 5.6 H 3.8 4.7 (3.5-5.1) mmol/L Chloride 108 H 119 H 115 H (98-107) mmol/L Carbon Dioxide 22 29 30 (22-30) mmol/L BUN 150 H* 126 H* 118 H* (9-20) mg/dL Creatinine 3.87 H 3.12 H 3.22 H (0.66-1.25) mg/dL Glucose 731 H* 186 H 232 H (74-99) mg/dL Calcium 11.2 H (8.4-10.2) mg/dL Total Bilirubin 0.4 (0.2-1.3) mg/dL AST 32 (17-59) U/L ALT 21 (4-49) U/L Alkaline Phosphatase 83 (38-126) U/L Total Protein 6.7 (6.3-8.2) g/dL Albumin 3.8 (3.5-5.0) g/dL 11/14/24 11/14/24 Range/Units 06:10 11:17 Sodium 153 H 155 H (137-145) mmol/L Potassium 4.8 3.9 (3.5-5.1) mmol/L Chloride 116 H 118 H (98-107) mmol/L Carbon Dioxide 18 L 26 (22-30) mmol/L BUN 110 H* 102 H* (9-20) mg/dL Creatinine 2.91 H 2.89 H (0.66-1.25) mg/dL Glucose 336 H 225 H (74-99) mg/dL Calcium 10.6 H 10.4 H (8.4-10.2) mg/dL Total Bilirubin 0.5 (0.2-1.3) mg/dL AST 39 (17-59) U/L ALT 21 (4-49) U/L Alkaline Phosphatase 91 (38-126) U/L Total Protein 6.6 (6.3-8.2) g/dL Albumin 3.6 (3.5-5.0) g/dL - Imaging Comments: CTA head and neck report [place] vertebral arteries small in caliber. Left vertebral artery is slightly more dominant. Severe focal stenosis at the V3/V4 junction of the right vertebral artery. Mild less than 25% proximal right ICA stenosis. Severe, 70% stenosis for a span of 1 to 1.5 cm involving the upper left ICA. COPD with moderate emphysema in the visualized lungs. Mild circumferential wall thickening partially visualized mild thoracic esophagus. Correlate for any symptoms of esophagitis. Direct visualization as clinically indicated. And tonic variation with persistent origin left [employer]. Segmental mild arthrosclerotic narrowing throughout the bilateral carotid siphons. No large vessel intracranial arterial occlusion or aneurysmal changes seen. Assessment and Plan Assessment: 1. Altered mental status changes likely secondary to metabolic encephalopathy 2. 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 Hyperkalemia, resolved 4. Acute kidney injury 5. Hyperglycemia 6. Positive for cocaine Plan: CTA independently reviewed, ICA stenosis of the left carotid artery is intracranial. Recommend follow-up with neurointerventionalist. There is no indication for any vascular surgical intervention. Continue rest of medical management per primary medical team. Continue with recommendations from neurology Thank you for this consultation, we will sign off at this time. The impression and plan of care has been dictated as directed. Dr. Puente I performed a history and examination of this patient, discussed the same with the dictator. I agree with the dictator's note ,documented as a scribe. Any additional findings or plans will be noted.
[2024-11-14 13:20] LABS: Glucose,Whole Blood 235 mg/dL (70-110)
[2024-11-14 14:35] LABS: Glucose,Whole Blood 156 mg/dL (70-110)
[2024-11-14 15:30] LABS: Glucose,Whole Blood 95 mg/dL (70-110)
[2024-11-14 16:12] LABS: Glucose,Whole Blood 61 mg/dL (70-110)
[2024-11-14] MEDS: DEXTROSE 50% SYRINGE 50 ML IVP PRN (16:15)
[2024-11-14 16:16] LABS: Chol/HDL Ratio 2.67 Ratio; LDL Cholesterol,Calculated 68.3 mg/dL (0.0-131.0)
[2024-11-14 16:34] LABS: Glucose,Whole Blood 163 mg/dL (70-110)
[2024-11-14 16:53] LABS: Glucose,Whole Blood 190 mg/dL (70-110)
[2024-11-14 16:54] LABS: African American GFR (CKD) 28 (>60 ml/min/1.73 sqM); Anion Gap 11 mmol/L; Blood Urea Nitrogen 95 mg/dL (9-20); Calcium 10.2 mg/dL (8.4-10.2); Carbon Dioxide 21 mmol/L (22-30); Chloride 122 mmol/L (98-107); Glucose 127 mg/dL (74-99); Non-African American GFR(CKD) 24 (>60 ml/min/1.73 sqM); Sodium 154 mmol/L (137-145)
[2024-11-14 17:07] LABS: Potassium 4.8 mmol/L (3.5-5.1)
[2024-11-14 17:20] LABS: Glucose,Whole Blood 113 mg/dL (70-110)
[2024-11-14 18:04] LABS: Glucose,Whole Blood 182 mg/dL (70-110)
[2024-11-14 19:11] LABS: Glucose,Whole Blood 151 mg/dL (70-110)
[2024-11-14] MEDS: LORazepam 2 MG/ML INJ IV PRN (19:30)
[2024-11-14 20:16] LABS: Glucose,Whole Blood 192 mg/dL (70-110)
[2024-11-14 21:09] LABS: Glucose,Whole Blood 179 mg/dL (70-110)
[2024-11-14 22:10] LABS: Glucose,Whole Blood 238 mg/dL (70-110)
[2024-11-14 22:52] LABS: Glucose,Whole Blood 325 mg/dL (70-110)
[2024-11-14 23:18] LABS: Glucose,Whole Blood 413 mg/dL (70-110)
[2024-11-15 00:27] LABS: Glucose,Whole Blood 210 mg/dL (70-110)
[2024-11-15 00:27] LABS: Glucose,Whole Blood 570 mg/dL (70-110)
[2024-11-15 01:19] LABS: Glucose,Whole Blood 169 mg/dL (70-110)
[2024-11-15 02:24] LABS: Glucose,Whole Blood 172 mg/dL (70-110)
[2024-11-15 03:20] LABS: Glucose,Whole Blood 170 mg/dL (70-110)
[2024-11-15 04:31] LABS: Glucose,Whole Blood 260 mg/dL (70-110)
[2024-11-15 05:31] LABS: African American GFR (CKD) 34 (>60 ml/min/1.73 sqM); Anion Gap 16 mmol/L; Blood Urea Nitrogen 68 mg/dL (9-20); Calcium 9.8 mg/dL (8.4-10.2); Carbon Dioxide 18 mmol/L (22-30); Chloride 118 mmol/L (98-107); Glucose 217 mg/dL (74-99); Non-African American GFR(CKD) 29 (>60 ml/min/1.73 sqM); Potassium 4.5 mmol/L (3.5-5.1); Sodium 152 mmol/L (137-145)
[2024-11-15 05:36] LABS: Glucose,Whole Blood 191 mg/dL (70-110)
[2024-11-15 05:38] LABS: Basophils # (A) 0.1 k/uL (0-0.2); Basophils % (A) 0 %; Eosinophils # (A) 0.4 k/uL (0-0.7); Eosinophils % (A) 3 %; HCT 46.4 % (39.0-53.0); HGB 14.7 gm/dL (13.0-17.5); Hypochromasia Slight; Lymphocytes # (A) 1.5 k/uL (1.0-4.8); Lymphocytes % (A) 14 %; MCHC 31.6 g/dL (31.0-37.0); MCV 94.9 fL (80.0-100.0); Mean Platelet Volume 12.5; Monocytes # (A) 0.5 k/uL (0-1.0); Monocytes % (A) 5 %; Neutrophils # (A) 8.5 k/uL (1.3-7.7); Neutrophils % (A) 77 %; RBC 4.88 m/uL (4.30-5.90); RDW 14.4 % (11.5-15.5)
[2024-11-15 06:33] LABS: Glucose,Whole Blood 262 mg/dL (70-110)
[2024-11-15 06:42] LABS: Platelet Count 69 k/uL (150-450); RBC Fragments Present; Tear Drop Cells Present
[2024-11-15 07:21] LABS: Glucose,Whole Blood 244 mg/dL (70-110)
[2024-11-15 08:10] LABS: Glucose,Whole Blood 261 mg/dL (70-110)
[2024-11-15 09:02] LABS: Glucose,Whole Blood 309 mg/dL (70-110)
[2024-11-15] MEDS ORDERED: LORazepam 0.5 MG TAB PO PRN (09:29)
[2024-11-15] MEDS ORDERED: LORazepam 1 MG TAB PO PRN ×2 (09:29)
[2024-11-15] MEDS ORDERED: DEXTROSE 50% SYRINGE 50 ML IVP PRN ×2 (09:32)
[2024-11-15] MEDS: INSULIN DETEMIR (LEVEMIR) 100 UNIT/ML SYR SQ STA (09:58)
[2024-11-15 10:02] LABS: Glucose,Whole Blood 221 mg/dL (70-110)
[2024-11-15] MEDS: SODIUM CHLORIDE 0.45% 1,000 ML with SODIUM BICARB (1 MEQ/ML) 50 ML IV SCH (10:35)
--- NOTE | 2024-11-15 12:05 | P.PN ---
Subjective Progress Note Date: 11/15/24 Hospital Course: Patient is a 69-year-old male with history of diabetes presenting with altered mentation. In the ED, temperature was 97.5, pulse 113, respiratory rate 20, saturating at 100% on room air, blood pressure 118/68. WBC 17.6, platelet 139, INR 1.3, pH 7.26, pCO2 64, potassium 7.2 came down to 5.6, creatinine 4.48, anion gap 21, glucose 1276, lactic acid 4.8, total calcium 11.7, CK3 32, troponin 0.027, BNP 215, ketones negative, urinalysis shows 4+ glucose, toxicology positive for cocaine, respiratory viral panel negative. Head CT did not show any acute process. Chest x-ray independently interpreted, shows interstitial opacities bilateral. Head and neck CTA showed severe focal stenosis at the V3/V4 junction of the right vertebral artery, mild right ICA stenosis, severe 70% stenosis of left ICA. Renal ultrasound did not show any hydronephrosis. Patient admitted on insulin drip for HHS. Nephrology, pulmonology consulted. Patient also given IV antibiotics and IV fluids in the ER. Neurology and vascular surgery also consulted. Blood sugars have down trended with insulin drip, mental status has been improving. Patient remains hypernatremic. Continued on hypotonic fluids. Subjective: Patient seen and examined at bedside. No acute events overnight. Sitter at bedside. Remains confused. Pertinent positives and negatives as discussed above, a complete review of systems was performed and all other systems are negative. Vitals Signs Reviewed. General: Nontoxic, no distress, appears at stated age Derm: Warm, dry Head: Atraumatic, normocephalic, symmetric Eyes: EOMI, no lid lag, anicteric sclera Mouth: No lip lesion, mucus membranes moist Cardiovascular: S1S2 reg, tachycardic, no murmur Lungs: Bilateral rales, no accessory muscle use Abdominal: Soft, nontender to palpation, no guarding, no appreciable organomegaly Ext: No gross muscle atrophy, no edema, no contractures Neuro: CN II-XI grossly intact, no focal neuro deficits, dysarthria Psych: Alert, oriented x 1, fleeting thoughts Data Reviewed Today: Pertinent Labs: WBC 11, hemoglobin 14.7, platelets 69, sodium 152, bicarb 18, BUN 68, creatinine 2.23, blood sugars in the 200s Imaging: No new imaging Assessment and Plan: Patient is critically ill, needs close monitoring. Prognosis guarded. Hyperosmolar hyperglycemic state in a type II diabetic Acute metabolic encephalopathy Hypernatremia Acute kidney injury, resolving High anion gap metabolic acidosis Uremia Severe dehydration Mild rhabdomyolysis Leukocytosis Polysubstance use, cocaine positive Carotid artery stenosis, focal vertebral artery stenosis COPD? -Discussed with nephrology, patient on sodium bicarb with half-normal saline at 125 cc an hour, may need to consider switching to D5 water if he continues to remain hyponatremic -Insulin drip was discontinued, patient switched over to subcu insulin Levemir 10 units nightly, sliding scale insulin ACH S -If starting D5 water, may need to consider starting insulin drip again -Empirically continue ceftriaxone 2 g IV every 24 hours, and status post azithromycin 500 mg daily oral -Blood cultures negative growth to date, Legionella urine antigen negative, sputum cultures not collected -ICU following -Neurochecks, telemetry -Neurology also following, started patient on aspirin 325 daily -Repeat CK level, may consider atorvastatin -Patient may be withdrawing from cocaine as well, started on Ativan 1 mg IV every 6 hours as needed, monitor for sedation -Vascular surgery recommending outpatient follow-up with neurointerventional list Thrombocytopenia -Low 4T score, low probability of HIT -Continue to monitor Lactic acidosis, resolved Mild hyperkalemia, resolved Hyperkalemia, resolved DVT ppx: Subcu heparin Code status: Full code Anticipated discharge place: Pending clinical course Anticipated discharge time: Pending clinical course Objective - Vital Signs Vital signs: Vital Signs Temp 97.8 F 11/15/24 10:02 Pulse 94 11/15/24 11:00 Resp 16 11/15/24 11:00 BP 106/61 11/15/24 11:00 Pulse Ox 99 11/15/24 11:00 FiO2 Intake & Output 11/14/24 11/15/24 11/15/24 18:59 06:59 18:59 Intake Total 36.739 8.169 1.530 Output Total 1000 1300 700 Balance -963.261 -1291.831 -698.470 Intake: Intake, IV Titration 36.739 8.169 1.530 Amount Insulin Regular 100 unit 36.739 8.169 1.530 In Sodium Chloride 0.9% 100 ml @ 0.1 UNITS/KG/HR 10.537 mls/hr IV .Q9H36M [facility] Rx#:[id number] Output: Urine 1000 1300 700 - Labs CBC & Chem 7: 11/15/24 05:08 11/15/24 05:08 Labs: Abnormal Lab Results - Last 24 Hours (Table) 11/14/24 11/14/24 11/14/24 Range/Units 13:18 14:34 16:10 WBC (3.8-10.6) k/uL Plt Count (150-450) k/uL Neutrophils # (1.3-7.7) k/uL Sodium (137-145) mmol/L Chloride (98-107) mmol/L Carbon Dioxide (22-30) mmol/L BUN (9-20) mg/dL Creatinine (0.66-1.25) mg/dL Glucose (74-99) mg/dL POC Glucose (mg/dL) 235 H 156 H 61 L (70-110) mg/dL 11/14/24 11/14/24 11/14/24 Range/Units 16:32 16:32 16:52 WBC (3.8-10.6) k/uL Plt Count (150-450) k/uL Neutrophils # (1.3-7.7) k/uL Sodium 154 H (137-145) mmol/L Chloride 122 H (98-107) mmol/L Carbon Dioxide 21 L (22-30) mmol/L BUN 95 H (9-20) mg/dL Creatinine 2.58 H (0.66-1.25) mg/dL Glucose 127 H (74-99) mg/dL POC Glucose (mg/dL) 163 H 190 H (70-110) mg/dL 11/14/24 11/14/24 11/14/24 Range/Units 17:19 18:03 19:09 WBC (3.8-10.6) k/uL Plt Count (150-450) k/uL Neutrophils # (1.3-7.7) k/uL Sodium (137-145) mmol/L Chloride (98-107) mmol/L Carbon Dioxide (22-30) mmol/L BUN (9-20) mg/dL Creatinine (0.66-1.25) mg/dL Glucose (74-99) mg/dL POC Glucose (mg/dL) 113 H 182 H 151 H (70-110) mg/dL 11/14/24 11/14/24 11/14/24 Range/Units 20:06 21:08 22:08 WBC (3.8-10.6) k/uL Plt Count (150-450) k/uL Neutrophils # (1.3-7.7) k/uL Sodium (137-145) mmol/L Chloride (98-107) mmol/L Carbon Dioxide (22-30) mmol/L BUN (9-20) mg/dL Creatinine (0.66-1.25) mg/dL Glucose (74-99) mg/dL POC Glucose (mg/dL) 192 H 179 H 238 H (70-110) mg/dL 11/14/24 11/14/24 11/15/24 Range/Units 22:50 23:17 00:22 WBC (3.8-10.6) k/uL Plt Count (150-450) k/uL Neutrophils # (1.3-7.7) k/uL Sodium (137-145) mmol/L Chloride (98-107) mmol/L Carbon Dioxide (22-30) mmol/L BUN (9-20) mg/dL Creatinine (0.66-1.25) mg/dL Glucose (74-99) mg/dL POC Glucose (mg/dL) 325 H 413 H 570 H* (70-110) mg/dL 11/15/24 11/15/24 11/15/24 Range/Units 00:25 01:12 02:22 WBC (3.8-10.6) k/uL Plt Count (150-450) k/uL Neutrophils # (1.3-7.7) k/uL Sodium (137-145) mmol/L Chloride (98-107) mmol/L Carbon Dioxide (22-30) mmol/L BUN (9-20) mg/dL Creatinine (0.66-1.25) mg/dL Glucose (74-99) mg/dL POC Glucose (mg/dL) 210 H 169 H 172 H (70-110) mg/dL 11/15/24 11/15/24 11/15/24 Range/Units 03:18 04:29 05:08 WBC 11.0 H (3.8-10.6) k/uL Plt Count 69 L (150-450) k/uL Neutrophils # 8.5 H (1.3-7.7) k/uL Sodium (137-145) mmol/L Chloride (98-107) mmol/L Carbon Dioxide (22-30) mmol/L BUN (9-20) mg/dL Creatinine (0.66-1.25) mg/dL Glucose (74-99) mg/dL POC Glucose (mg/dL) 170 H 260 H (70-110) mg/dL 11/15/24 11/15/24 11/15/24 Range/Units 05:08 05:35 06:31 WBC (3.8-10.6) k/uL Plt Count (150-450) k/uL Neutrophils # (1.3-7.7) k/uL Sodium 152 H (137-145) mmol/L Chloride 118 H (98-107) mmol/L Carbon Dioxide 18 L (22-30) mmol/L BUN 68 H (9-20) mg/dL Creatinine 2.23 H (0.66-1.25) mg/dL Glucose 217 H (74-99) mg/dL POC Glucose (mg/dL) 191 H 262 H (70-110) mg/dL 11/15/24 11/15/24 11/15/24 Range/Units 07:17 08:08 09:01 WBC (3.8-10.6) k/uL Plt Count (150-450) k/uL Neutrophils # (1.3-7.7) k/uL Sodium (137-145) mmol/L Chloride (98-107) mmol/L Carbon Dioxide (22-30) mmol/L BUN (9-20) mg/dL Creatinine (0.66-1.25) mg/dL Glucose (74-99) mg/dL POC Glucose (mg/dL) 244 H 261 H 309 H (70-110) mg/dL 11/15/24 Range/Units 10:01 WBC (3.8-10.6) k/uL Plt Count (150-450) k/uL Neutrophils # (1.3-7.7) k/uL Sodium (137-145) mmol/L Chloride (98-107) mmol/L Carbon Dioxide (22-30) mmol/L BUN (9-20) mg/dL Creatinine (0.66-1.25) mg/dL Glucose (74-99) mg/dL POC Glucose (mg/dL) 221 H (70-110) mg/dL Microbiology - Last 24 Hours (Table) 11/13/24 07:40 Blood Culture - Preliminary Blood
[2024-11-15] MEDS: LORazepam 1 MG TAB PO PRN (12:24)
--- NOTE | 2024-11-15 12:34 | P.PN ---
Subjective Patient is seen for follow-up for hyperkalemia and hyperosmolar nonketotic state. Patient remains on insulin drip. Serum sodium was 152 today. Serum creatinine down to 2.2 Patient has been confused. No significant improvement in mentation yet. 24-hour urine output at 2.3 L. Objective - Vital Signs Vital signs: Vital Signs Temp 98.6 F 11/15/24 12:16 Pulse 99 11/15/24 12:16 Resp 18 11/15/24 12:16 BP 139/73 11/15/24 12:16 Pulse Ox 96 11/15/24 12:16 FiO2 Intake & Output 11/14/24 11/15/24 11/15/24 18:59 06:59 18:59 Intake Total 36.739 8.169 1.530 Output Total 1000 1300 700 Balance -963.261 -1291.831 -698.470 Intake: Intake, IV Titration 36.739 8.169 1.530 Amount Insulin Regular 100 unit 36.739 8.169 1.530 In Sodium Chloride 0.9% 100 ml @ 0.1 UNITS/KG/HR 10.537 mls/hr IV .Q9H36M [facility] Rx#:[id number] Output: Urine 1000 1300 700 - Exam Patient is sedated. He received Ativan Examination of the heart S1 and S2 Examination of the lungs bilateral breath sounds are heard Abdomen is soft nontender Examination lower extremity shows no significant edema Patient is able to move all 4 extremities. - Labs CBC & Chem 7: 11/15/24 05:08 11/15/24 05:08 Labs: Abnormal Lab Results - Last 24 Hours (Table) 11/14/24 11/14/24 11/14/24 Range/Units 13:18 14:34 16:10 WBC (3.8-10.6) k/uL Plt Count (150-450) k/uL Neutrophils # (1.3-7.7) k/uL Sodium (137-145) mmol/L Chloride (98-107) mmol/L Carbon Dioxide (22-30) mmol/L BUN (9-20) mg/dL Creatinine (0.66-1.25) mg/dL Glucose (74-99) mg/dL POC Glucose (mg/dL) 235 H 156 H 61 L (70-110) mg/dL 0111/14/24 11/14/24 Range/Units 16:32 16:32 16:52 WBC (3.8-10.6) k/uL Plt Count (150-450) k/uL Neutrophils # (1.3-7.7) k/uL Sodium 154 H (137-145) mmol/L Chloride 122 H (98-107) mmol/L Carbon Dioxide 21 L (22-30) mmol/L BUN 95 H (9-20) mg/dL Creatinine 2.58 H (0.66-1.25) mg/dL Glucose 127 H (74-99) mg/dL POC Glucose (mg/dL) 163 H 190 H (70-110) mg/dL 11/14/24 11/14/24 11/14/24 Range/Units 17:19 18:03 19:09 WBC (3.8-10.6) k/uL Plt Count (150-450) k/uL Neutrophils # (1.3-7.7) k/uL Sodium (137-145) mmol/L Chloride (98-107) mmol/L Carbon Dioxide (22-30) mmol/L BUN (9-20) mg/dL Creatinine (0.66-1.25) mg/dL Glucose (74-99) mg/dL POC Glucose (mg/dL) 113 H 182 H 151 H (70-110) mg/dL 11/14/24 11/14/24 11/14/24 Range/Units 20:06 21:08 22:08 WBC (3.8-10.6) k/uL Plt Count (150-450) k/uL Neutrophils # (1.3-7.7) k/uL Sodium (137-145) mmol/L Chloride (98-107) mmol/L Carbon Dioxide (22-30) mmol/L BUN (9-20) mg/dL Creatinine (0.66-1.25) mg/dL Glucose (74-99) mg/dL POC Glucose (mg/dL) 192 H 179 H 238 H (70-110) mg/dL 11/14/24 11/14/24 11/15/24 Range/Units 22:50 23:17 00:22 WBC (3.8-10.6) k/uL Plt Count (150-450) k/uL Neutrophils # (1.3-7.7) k/uL Sodium (137-145) mmol/L Chloride (98-107) mmol/L Carbon Dioxide (22-30) mmol/L BUN (9-20) mg/dL Creatinine (0.66-1.25) mg/dL Glucose (74-99) mg/dL POC Glucose (mg/dL) 325 H 413 H 570 H* (70-110) mg/dL 11/15/24 11/15/24 11/15/24 Range/Units 00:25 01:12 02:22 WBC (3.8-10.6) k/uL Plt Count (150-450) k/uL Neutrophils # (1.3-7.7) k/uL Sodium (137-145) mmol/L Chloride (98-107) mmol/L Carbon Dioxide (22-30) mmol/L BUN (9-20) mg/dL Creatinine (0.66-1.25) mg/dL Glucose (74-99) mg/dL POC Glucose (mg/dL) 210 H 169 H 172 H (70-110) mg/dL 11/15/24 11/15/24 11/15/24 Range/Units 03:18 04:29 05:08 WBC 11.0 H (3.8-10.6) k/uL Plt Count 69 L (150-450) k/uL Neutrophils # 8.5 H (1.3-7.7) k/uL Sodium (137-145) mmol/L Chloride (98-107) mmol/L Carbon Dioxide (22-30) mmol/L BUN (9-20) mg/dL Creatinine (0.66-1.25) mg/dL Glucose (74-99) mg/dL POC Glucose (mg/dL) 170 H 260 H (70-110) mg/dL 11/15/24 11/15/24 11/15/24 Range/Units 05:08 05:35 06:31 WBC (3.8-10.6) k/uL Plt Count (150-450) k/uL Neutrophils # (1.3-7.7) k/uL Sodium 152 H (137-145) mmol/L Chloride 118 H (98-107) mmol/L Carbon Dioxide 18 L (22-30) mmol/L BUN 68 H (9-20) mg/dL Creatinine 2.23 H (0.66-1.25) mg/dL Glucose 217 H (74-99) mg/dL POC Glucose (mg/dL) 191 H 262 H (70-110) mg/dL 11/15/24 11/15/24 11/15/24 Range/Units 07:17 08:08 09:01 WBC (3.8-10.6) k/uL Plt Count (150-450) k/uL Neutrophils # (1.3-7.7) k/uL Sodium (137-145) mmol/L Chloride (98-107) mmol/L Carbon Dioxide (22-30) mmol/L BUN (9-20) mg/dL Creatinine (0.66-1.25) mg/dL Glucose (74-99) mg/dL POC Glucose (mg/dL) 244 H 261 H 309 H (70-110) mg/dL 11/15/24 Range/Units 10:01 WBC (3.8-10.6) k/uL Plt Count (150-450) k/uL Neutrophils # (1.3-7.7) k/uL Sodium (137-145) mmol/L Chloride (98-107) mmol/L Carbon Dioxide (22-30) mmol/L BUN (9-20) mg/dL Creatinine (0.66-1.25) mg/dL Glucose (74-99) mg/dL POC Glucose (mg/dL) 221 H (70-110) mg/dL Microbiology - Last 24 Hours (Table) 11/13/24 07:40 Blood Culture - Preliminary Blood Assessment and Plan Assessment: 1. Acute kidney injury associated with severe volume depletion hyper osmolar nonketotic diabetic state. Nonoliguric. UA is benign. No previous labs available for comparison. 2. Hypernatremia associated with free water deficit. Serum sodium was 140 on admission which was falsely low due to severe hyperglycemia. Corrected sodium is 159. Currently maintained on half normal saline 3. Hyperkalemia associated with acute severe hyperglycemia and acute kidney injury. Improved with improved blood sugar level 4. History of polysubstance abuse with drug screen positive for cocaine 5. Respiratory acidosis with CO2 retention 6. Mental status changes secondary to metabolic encephalopathy Plan: Repeat labs later on today. If no further improvement in serum sodium I will switch to D5W with 1 amp of sodium bicarb.
[2024-11-15 12:56] LABS: Glucose,Whole Blood 239 mg/dL (70-110)
[2024-11-15 12:56] LABS: African American GFR (CKD) 38 (>60 ml/min/1.73 sqM); Anion Gap 13 mmol/L; Blood Urea Nitrogen 56 mg/dL (9-20); Calcium 9.2 mg/dL (8.4-10.2); Carbon Dioxide 20 mmol/L (22-30); Chloride 119 mmol/L (98-107); Glucose 278 mg/dL (74-99); Non-African American GFR(CKD) 33 (>60 ml/min/1.73 sqM); Potassium 4.7 mmol/L (3.5-5.1); Sodium 152 mmol/L (137-145)
[2024-11-15 13:27] LABS: Glucose,Whole Blood 216 mg/dL (70-110)
[2024-11-15] MEDS: INSULIN ASPART (NovoLOG) 100 UNIT/ML VIAL SQ SCH (14:07)
[2024-11-15] MEDS: LORazepam 2 MG/ML INJ IV PRN ×2 (14:07→15:56)
--- NOTE | 2024-11-15 16:31 | P.PN ---
Subjective Progress Note Date: 11/15/24 69-year-old male patient, diabetic, presents emerged part because of altered me ntation. Immediately, the patient was noted to be hyperglycemic and had significant metabolic abnormalities consistent with hyperosmolar nonketotic state. Noted the blood sugar was measured to be at 1276. Ketones were negative. UA was showing plus for glucose. Urine drug screen was positive for cocaine. Viral 4 Plex was negative. In terms of the blood work, the patient's initial sodium level was at 140, potassium level was at 7.2, BUN was 163 with a creatinine of 4.48 with a anion gap of 21. Lactic acid was measured at 3.8 initially and is peaked at 5.8. LFTs were normal. CPK was 332. Troponins were negative. proBNP level was 215. Troponins were negative. Alcohol level was less than 10. Acetone was negative. The white cell count was at 17.6 with a hemoglobin of 17 and a platelet count of 139. Coagulation profile was within normal limits. Chest x-ray was done Emergency Department and it showed diffuse interstitial changes bilaterally, chronicity is unknown. CAT scan of the brain showed no evidence of any acute bleed or CVA it was consistent with mild chronic small vessel ischemic changes and there was no evidence of an acute CVA. CT angiogram of the brain showed COPD with moderate emphysematous changes in lung apices bilaterally. Less than 25% proximal right ICA stenosis, 70% left ICA disease and the [place] vertebral arteries were small in caliber. Based on all this, the patient was started on fluid resuscitation. The patient was given normal saline, a total of 2 L and subsequently the patient was started on a bicarb infusion. Urine output is adequate for now. Subsequent blood work on this patient showed drop in the creatinine down to 3.12 with a BUN of 126. Sodium level came at 160 following the correction of the blood sugar. Most recent blood sugars down to 186 as the patient is currently on insulin drip for blood sugar control. Lactic acid level is currently at 5.0. Neurologically, the patient remains altered and confused. Unable to volunteer any history. He does mumble. He is afebrile for now. He is on room air oxygen. The cardiac rhythm is sinus. Ultrasound the kidneys was done and it showed no evidence of any hydronephrosis. On 11/14/2024, the patient is being seen for a follow-up. Seems to be much more alert and awake compared to yesterday although he remains somewhat confused. Family is at the bedside. The patient is currently on insulin drip running at 4 units an hour. The patient is also on half-normal saline running at 150 cc an hour. The patient's blood work from this morning showed a sodium level of 153 with a potassium level of 4.8, bicarb is at 18 with a BUN of 110 and a creatinine of 2.9. Noted the creatinine has been gradually improving. Potassium level is also stabilized. Sodium level is improving. The white cell count is 18.9 with a hemoglobin of 16.3. The chest x-ray shows chronic coarse interstitial infiltrates probably due to chronic ILD/fibrosis. The patient remains on empiric antibiotic coverage with IV Rocephin and Zithromax. Afebrile. Hemodynamically stable on no pressors. He has already started some soft diet. Urine drug screen is positive for cocaine. On 11/15/2024, the patient is being seen for a follow-up. The patient is confused. There could be a component of alcohol withdrawal syndrome as the patient admits to drinking 1 pint of alcohol on a daily basis. Hemodynamically stable. Continues to receive fluids and the patient remains on half-normal saline at rate of 150 cc an hour. A sitter is at the bedside. No focal neurological deficits. The blood sugar control is improved. Most recent electrolytes showed a sodium level of 152, potassium level is at 4.7, chlorides 119 and bicarb level is at 20. BUN is 56 with a creatinine of 2.03. Insulin drip was discontinued and the patient was placed on Levemir insulin 10 units in addition to his sign scale coverage. The patient is awaiting to be transferred to the intensive care unit. He was seen in the emergency department this morning. He is white cell count is 11 with a heme of 14.7 and platelet count of 69. He is currently on room air oxygen with a pulse ox of 95%. No signs of any respiratory distress. Objective - Vital Signs Vital signs: Vital Signs Temp 96.6 F L 11/15/24 08:57 Pulse 104 H 11/15/24 08:57 Resp 18 11/15/24 08:57 BP 123/65 11/15/24 08:57 Pulse Ox 98 11/15/24 08:57 FiO2 Intake & Output 11/14/24 11/15/24 11/15/24 18:59 06:59 18:59 Intake Total 36.739 8.169 0.484 Output Total 1000 1300 700 Balance -963.261 -1291.831 -699.516 Intake: Intake, IV Titration 36.739 8.169 0.484 Amount Insulin Regular 100 unit 36.739 8.169 0.484 In Sodium Chloride 0.9% 100 ml @ 0.1 UNITS/KG/HR 10.537 mls/hr IV .[id number] [facility] Rx#:[id number] Output: Urine 1000 1300 700 - Exam The patient is confused, unable to communicate, currently on room air oxygen. No sign of any significant respiratory distress. Well resuscitated and hydrated at this point. Head exam is unremarkable. No scleral icterus or corneal arcus noted. Neck is without jugular venous distension, thyromegaly, or carotid bruits. Carotid upstrokes are brisk bilaterally. Lungs are clear to auscultation and percussion. Cardiac exam reveals the PMI to be normally sized and situated. Rhythm is regular. First and second heart sounds normal. No murmurs, rubs or gallops. Abdominal exam reveals normal bowel sounds, no masses, no organomegaly and no aortic enlargement. Extremities are nonedematous and both femoral and pedal pulses are normal. Examination of the skin revealed no evidence of significant rashes, suspicious appearing nevi or other concerning lesions. Neurologically, the patient more alert and communicative compared to yesterday. Remains confused.. Overall neurologic exam is nonfocal. - Labs CBC & Chem 7: 11/15/24 05:08 11/15/24 12:29 Labs: Abnormal Lab Results - Last 24 Hours (Table) 11/14/24 11/14/24 11/14/24 Range/Units 01:12 06:10 09:56 WBC (3.8-10.6) k/uL Plt Count (150-450) k/uL Neutrophils # (1.3-7.7) k/uL Sodium (137-145) mmol/L Chloride (98-107) mmol/L Carbon Dioxide (22-30) mmol/L BUN (9-20) mg/dL Creatinine (0.66-1.25) mg/dL Glucose (74-99) mg/dL POC Glucose (mg/dL) 377 H (70-110) mg/dL Hemoglobin A1c 11.4 H (<=6.0) % Osmolality 381 H (275-295) mOsm/kg Calcium (8.4-10.2) mg/dL 11/14/24 11/14/24 11/14/24 Range/Units 10:55 11:17 12:02 WBC (3.8-10.6) k/uL Plt Count (150-450) k/uL Neutrophils # (1.3-7.7) k/uL Sodium 155 H (137-145) mmol/L Chloride 118 H (98-107) mmol/L Carbon Dioxide (22-30) mmol/L BUN 102 H* (9-20) mg/dL Creatinine 2.89 H (0.66-1.25) mg/dL Glucose 225 H (74-99) mg/dL POC Glucose (mg/dL) 289 H 220 H (70-110) mg/dL Hemoglobin A1c (<=6.0) % Osmolality (275-295) mOsm/kg Calcium 10.4 H (8.4-10.2) mg/dL 11/14/24 11/14/24 11/14/24 Range/Units 13:18 14:34 16:10 WBC (3.8-10.6) k/uL Plt Count (150-450) k/uL Neutrophils # (1.3-7.7) k/uL Sodium (137-145) mmol/L Chloride (98-107) mmol/L Carbon Dioxide (22-30) mmol/L BUN (9-20) mg/dL Creatinine (0.66-1.25) mg/dL Glucose (74-99) mg/dL POC Glucose (mg/dL) 235 H 156 H 61 L (70-110) mg/dL Hemoglobin A1c (<=6.0) % Osmolality (275-295) mOsm/kg Calcium (8.4-10.2) mg/dL 11/14/24 11/14/24 11/14/24 Range/Units 16:32 16:32 16:52 WBC (3.8-10.6) k/uL Plt Count (150-450) k/uL Neutrophils # (1.3-7.7) k/uL Sodium 154 H (137-145) mmol/L Chloride 122 H (98-107) mmol/L Carbon Dioxide 21 L (22-30) mmol/L BUN 95 H (9-20) mg/dL Creatinine 2.58 H (0.66-1.25) mg/dL Glucose 127 H (74-99) mg/dL POC Glucose (mg/dL) 163 H 190 H (70-110) mg/dL Hemoglobin A1c (<=6.0) % Osmolality (275-295) mOsm/kg Calcium (8.4-10.2) mg/dL 11/14/24 11/14/24 11/14/24 Range/Units 17:19 18:03 19:09 WBC (3.8-10.6) k/uL Plt Count (150-450) k/uL Neutrophils # (1.3-7.7) k/uL Sodium (137-145) mmol/L Chloride (98-107) mmol/L Carbon Dioxide (22-30) mmol/L BUN (9-20) mg/dL Creatinine (0.66-1.25) mg/dL Glucose (74-99) mg/dL POC Glucose (mg/dL) 113 H 182 H 151 H (70-110) mg/dL Hemoglobin A1c (<=6.0) % Osmolality (275-295) mOsm/kg Calcium (8.4-10.2) mg/dL 11/14/24 11/14/24 11/14/24 Range/Units 20:06 21:08 22:08 WBC (3.8-10.6) k/uL Plt Count (150-450) k/uL Neutrophils # (1.3-7.7) k/uL Sodium (137-145) mmol/L Chloride (98-107) mmol/L Carbon Dioxide (22-30) mmol/L BUN (9-20) mg/dL Creatinine (0.66-1.25) mg/dL Glucose (74-99) mg/dL POC Glucose (mg/dL) 192 H 179 H 238 H (70-110) mg/dL Hemoglobin A1c (<=6.0) % Osmolality (275-295) mOsm/kg Calcium (8.4-10.2) mg/dL 11/14/24 11/14/24 11/15/24 Range/Units 22:50 23:17 00:22 WBC (3.8-10.6) k/uL Plt Count (150-450) k/uL Neutrophils # (1.3-7.7) k/uL Sodium (137-145) mmol/L Chloride (98-107) mmol/L Carbon Dioxide (22-30) mmol/L BUN (9-20) mg/dL Creatinine (0.66-1.25) mg/dL Glucose (74-99) mg/dL POC Glucose (mg/dL) 325 H 413 H 570 H* (70-110) mg/dL Hemoglobin A1c (<=6.0) % Osmolality (275-295) mOsm/kg Calcium (8.4-10.2) mg/dL 11/15/24 11/15/24 11/15/24 Range/Units 00:25 01:12 02:22 WBC (3.8-10.6) k/uL Plt Count (150-450) k/uL Neutrophils # (1.3-7.7) k/uL Sodium (137-145) mmol/L Chloride (98-107) mmol/L Carbon Dioxide (22-30) mmol/L BUN (9-20) mg/dL Creatinine (0.66-1.25) mg/dL Glucose (74-99) mg/dL POC Glucose (mg/dL) 210 H 169 H 172 H (70-110) mg/dL Hemoglobin A1c (<=6.0) % Osmolality (275-295) mOsm/kg Calcium (8.4-10.2) mg/dL 11/15/24 11/15/24 11/15/24 Range/Units 03:18 04:29 05:08 WBC 11.0 H (3.8-10.6) k/uL Plt Count 69 L (150-450) k/uL Neutrophils # 8.5 H (1.3-7.7) k/uL Sodium (137-145) mmol/L Chloride (98-107) mmol/L Carbon Dioxide (22-30) mmol/L BUN (9-20) mg/dL Creatinine (0.66-1.25) mg/dL Glucose (74-99) mg/dL POC Glucose (mg/dL) 170 H 260 H (70-110) mg/dL Hemoglobin A1c (<=6.0) % Osmolality (275-295) mOsm/kg Calcium (8.4-10.2) mg/dL 11/15/24 11/15/24 11/15/24 Range/Units 05:08 05:35 06:31 WBC (3.8-10.6) k/uL Plt Count (150-450) k/uL Neutrophils # (1.3-7.7) k/uL Sodium 152 H (137-145) mmol/L Chloride 118 H (98-107) mmol/L Carbon Dioxide 18 L (22-30) mmol/L BUN 68 H (9-20) mg/dL Creatinine 2.23 H (0.66-1.25) mg/dL Glucose 217 H (74-99) mg/dL POC Glucose (mg/dL) 191 H 262 H (70-110) mg/dL Hemoglobin A1c (<=6.0) % Osmolality (275-295) mOsm/kg Calcium (8.4-10.2) mg/dL 11/15/24 11/15/24 11/15/24 Range/Units 07:17 08:08 09:01 WBC (3.8-10.6) k/uL Plt Count (150-450) k/uL Neutrophils # (1.3-7.7) k/uL Sodium (137-145) mmol/L Chloride (98-107) mmol/L Carbon Dioxide (22-30) mmol/L BUN (9-20) mg/dL Creatinine (0.66-1.25) mg/dL Glucose (74-99) mg/dL POC Glucose (mg/dL) 244 H 261 H 309 H (70-110) mg/dL Hemoglobin A1c (<=6.0) % Osmolality (275-295) mOsm/kg Calcium (8.4-10.2) mg/dL Microbiology - Last 24 Hours (Table) 11/13/24 07:40 Blood Culture - Preliminary Blood Assessment and Plan Plan: Acute hyperglycemia with hyperosmolar nonketotic hyperglycemic state,, improving and the patient will be taken off the insulin drip and switch to long-acting insulin along with a sign scale coverage. Acute hypernatremia secondary dehydration, currently on half-normal saline at rate of 150 cc an hour, sodium level is improving Altered mentation secondary to above. This is related to metabolic encephalopathy. CT scan of the brain and CT angiogram shows no evidence of an acute stroke. Neurologically, the patient is improving although the patient remains confused. Rule out a component of alcoholic encephalopathy/delirium tremens. Non-anion gap metabolic acidosis, improving Severe dehydration and intravascular volume depletion secondary to above, improving Acute kidney injury, secondary to above versus related to intravascular volume depletion. No evidence of any hydronephrosis, improving Pseudohyponatremia. The sodium level is currently elevated as the patient's blood sugars are being adjusted and corrected. Lactic acidosis with a component of mild anion gap metabolic acidosis. Acetone is negative Rhabdomyolysis, mild Acute hypokalemia secondary to above, improving History of substance abuse with a positive urine drug screen for cocaine Carotid artery stenosis COPD, currently inactive and stable Chronic ILD/fibrosis, will need a CAT scan at a later stage Chronic thrombocytopenia, likely secondary to EtOH use Alcoholism, possible delirium tremens. Plan Continue IV fluids to half-normal saline at rate of 150 cc an hour along with 20 mg of potassium chloride Start the patient on Levemir insulin 10 units daily along with a sign scale coverage. Repeat electrolytes Provide diet Potassium level is normalized Monitor sodium level, sodium level is improving Monitor mental status Place the patient on CIWA protocol Antibiotic coverage essentially empiric at this point in time Heparin subcu for DVT prophylaxis Aspiration precautions Allow soft diet Will continue to follow Will transfer to the intensive care unit
[2024-11-15] MEDS: DEXTROSE 5% IN WATER 1,000 ML with SODIUM BICARB (1 MEQ/ML) 50 ML IV SCH (16:42)
[2024-11-15 16:47] LABS: Glucose,Whole Blood 171 mg/dL (70-110)
--- NOTE | 2024-11-15 17:08 | P.PN ---
Subjective Progress Note Date: 11/14/24 Patient was seen for a follow-up. Per nursing report, patient wants to get out of bed. He wants to pee, although he does have catheter in place. Nurse reports that it is very difficult to understand his speech. He does have some issues with speech at baseline. Patient is fully alert and awake. Appears somewhat delirious. Objective - Vital Signs Vital signs: Vital Signs Temp 97.6 F 11/14/24 07:45 Pulse 90 11/14/24 18:00 Resp 18 11/14/24 18:00 BP 114/63 11/14/24 18:00 Pulse Ox 94 L 11/14/24 18:00 FiO2 Intake & Output 11/14/24 11/14/24 11/15/24 06:59 18:59 06:59 Intake Total 9.469 36.739 Output Total 375 1000 Balance -365.531 -963.261 Intake: Intake, IV Titration 9.469 36.739 Amount Insulin Regular 100 unit 9.469 36.739 In Sodium Chloride 0.9% 100 ml @ 0.1 UNITS/KG/HR 10.537 mls/hr IV .Q9H36M [facility] Rx#:[id number] Output: Urine 375 1000 Uretheral (Puente) 375 - Exam Patient is alert and awake, appears somewhat hyperverbal. Patient knows it is November and the year is 25 and that he is 69 years old. He knows that he is in [place] and [facility]. Patient often rambles, talks random stuff, with poor content. Then he mumbles. His pupils are equal, round and reacting. He did not cooperate with visual field testing. Extraocular muscles are intact. Face is symmetric. No droop. On muscle strength testing there is no pronator drift. Muscle strength is normal in the arms and legs except hip flexion which is 4+ right, 4-left. - Labs CBC & Chem 7: 11/15/24 05:08 11/15/24 12:29 Labs: Abnormal Lab Results - Last 24 Hours (Table) 11/13/24 11/13/24 11/13/24 Range/Units 19:58 21:12 21:34 WBC (3.8-10.6) k/uL MCHC (31.0-37.0) g/dL Plt Count (150-450) k/uL Neutrophils # (1.3-7.7) k/uL Sodium (137-145) mmol/L Chloride (98-107) mmol/L Carbon Dioxide (22-30) mmol/L BUN (9-20) mg/dL Creatinine (0.66-1.25) mg/dL Glucose (74-99) mg/dL POC Glucose (mg/dL) 119 H 237 H (70-110) mg/dL Hemoglobin A1c (<=6.0) % Osmolality (275-295) mOsm/kg Plasma Lactic Acid Evaristo 4.1 H* (0.7-2.0) mmol/L Calcium (8.4-10.2) mg/dL Creatine Kinase (55-170) U/L 11/13/24 11/13/24 11/14/24 Range/Units 22:03 23:15 00:04 WBC (3.8-10.6) k/uL MCHC (31.0-37.0) g/dL Plt Count (150-450) k/uL Neutrophils # (1.3-7.7) k/uL Sodium (137-145) mmol/L Chloride (98-107) mmol/L Carbon Dioxide (22-30) mmol/L BUN (9-20) mg/dL Creatinine (0.66-1.25) mg/dL Glucose (74-99) mg/dL POC Glucose (mg/dL) 162 H 166 H 204 H (70-110) mg/dL Hemoglobin A1c (<=6.0) % Osmolality (275-295) mOsm/kg Plasma Lactic Acid Evaristo (0.7-2.0) mmol/L Calcium (8.4-10.2) mg/dL Creatine Kinase (55-170) U/L 11/14/24 11/14/24 11/14/24 Range/Units 01:07 01:12 01:12 WBC (3.8-10.6) k/uL MCHC (31.0-37.0) g/dL Plt Count (150-450) k/uL Neutrophils # (1.3-7.7) k/uL Sodium 157 H (137-145) mmol/L Chloride 115 H (98-107) mmol/L Carbon Dioxide (22-30) mmol/L BUN 118 H* (9-20) mg/dL Creatinine 3.22 H (0.66-1.25) mg/dL Glucose 232 H (74-99) mg/dL POC Glucose (mg/dL) 178 H (70-110) mg/dL Hemoglobin A1c (<=6.0) % Osmolality 381 H (275-295) mOsm/kg Plasma Lactic Acid Evaristo (0.7-2.0) mmol/L Calcium 11.2 H (8.4-10.2) mg/dL Creatine Kinase (55-170) U/L 11/14/24 11/14/24 11/14/24 Range/Units 02:05 03:07 04:06 WBC (3.8-10.6) k/uL MCHC (31.0-37.0) g/dL Plt Count (150-450) k/uL Neutrophils # (1.3-7.7) k/uL Sodium (137-145) mmol/L Chloride (98-107) mmol/L Carbon Dioxide (22-30) mmol/L BUN (9-20) mg/dL Creatinine (0.66-1.25) mg/dL Glucose (74-99) mg/dL POC Glucose (mg/dL) 217 H 257 H 295 H (70-110) mg/dL Hemoglobin A1c (<=6.0) % Osmolality (275-295) mOsm/kg Plasma Lactic Acid Evaristo (0.7-2.0) mmol/L Calcium (8.4-10.2) mg/dL Creatine Kinase (55-170) U/L 11/14/24 11/14/24 11/14/24 Range/Units 05:01 06:00 06:10 WBC (3.8-10.6) k/uL MCHC (31.0-37.0) g/dL Plt Count (150-450) k/uL Neutrophils # (1.3-7.7) k/uL Sodium (137-145) mmol/L Chloride (98-107) mmol/L Carbon Dioxide (22-30) mmol/L BUN (9-20) mg/dL Creatinine (0.66-1.25) mg/dL Glucose (74-99) mg/dL POC Glucose (mg/dL) 281 H 313 H (70-110) mg/dL Hemoglobin A1c 11.4 H (<=6.0) % Osmolality (275-295) mOsm/kg Plasma Lactic Acid Evaristo (0.7-2.0) mmol/L Calcium (8.4-10.2) mg/dL Creatine Kinase (55-170) U/L 11/14/24 11/14/24 11/14/24 Range/Units 06:10 06:10 06:57 WBC 18.9 H (3.8-10.6) k/uL MCHC 30.8 L (31.0-37.0) g/dL Plt Count 84 L (150-450) k/uL Neutrophils # 15.9 H (1.3-7.7) k/uL Sodium 153 H (137-145) mmol/L Chloride 116 H (98-107) mmol/L Carbon Dioxide 18 L (22-30) mmol/L BUN 110 H* (9-20) mg/dL Creatinine 2.91 H (0.66-1.25) mg/dL Glucose 336 H (74-99) mg/dL POC Glucose (mg/dL) 353 H (70-110) mg/dL Hemoglobin A1c (<=6.0) % Osmolality (275-295) mOsm/kg Plasma Lactic Acid Evaristo (0.7-2.0) mmol/L Calcium 10.6 H (8.4-10.2) mg/dL Creatine Kinase 670 H (55-170) U/L 11/14/24 11/14/24 11/14/24 Range/Units 07:55 08:57 09:56 WBC (3.8-10.6) k/uL MCHC (31.0-37.0) g/dL Plt Count (150-450) k/uL Neutrophils # (1.3-7.7) k/uL Sodium (137-145) mmol/L Chloride (98-107) mmol/L Carbon Dioxide (22-30) mmol/L BUN (9-20) mg/dL Creatinine (0.66-1.25) mg/dL Glucose (74-99) mg/dL POC Glucose (mg/dL) 353 H 336 H 377 H (70-110) mg/dL Hemoglobin A1c (<=6.0) % Osmolality (275-295) mOsm/kg Plasma Lactic Acid Evaristo (0.7-2.0) mmol/L Calcium (8.4-10.2) mg/dL Creatine Kinase (55-170) U/L 11/14/24 11/14/24 11/14/24 Range/Units 10:55 11:17 12:02 WBC (3.8-10.6) k/uL MCHC (31.0-37.0) g/dL Plt Count (150-450) k/uL Neutrophils # (1.3-7.7) k/uL Sodium 155 H (137-145) mmol/L Chloride 118 H (98-107) mmol/L Carbon Dioxide (22-30) mmol/L BUN 102 H* (9-20) mg/dL Creatinine 2.89 H (0.66-1.25) mg/dL Glucose 225 H (74-99) mg/dL POC Glucose (mg/dL) 289 H 220 H (70-110) mg/dL Hemoglobin A1c (<=6.0) % Osmolality (275-295) mOsm/kg Plasma Lactic Acid Evaristo (0.7-2.0) mmol/L Calcium 10.4 H (8.4-10.2) mg/dL Creatine Kinase (55-170) U/L 11/14/24 11/14/24 11/14/24 Range/Units 13:18 14:34 16:10 WBC (3.8-10.6) k/uL MCHC (31.0-37.0) g/dL Plt Count (150-450) k/uL Neutrophils # (1.3-7.7) k/uL Sodium (137-145) mmol/L Chloride (98-107) mmol/L Carbon Dioxide (22-30) mmol/L BUN (9-20) mg/dL Creatinine (0.66-1.25) mg/dL Glucose (74-99) mg/dL POC Glucose (mg/dL) 235 H 156 H 61 L (70-110) mg/dL Hemoglobin A1c (<=6.0) % Osmolality (275-295) mOsm/kg Plasma Lactic Acid Evaristo (0.7-2.0) mmol/L Calcium (8.4-10.2) mg/dL Creatine Kinase (55-170) U/L 11/14/24 11/14/24 11/14/24 Range/Units 16:32 16:32 16:52 WBC (3.8-10.6) k/uL MCHC (31.0-37.0) g/dL Plt Count (150-450) k/uL Neutrophils # (1.3-7.7) k/uL Sodium 154 H (137-145) mmol/L Chloride 122 H (98-107) mmol/L Carbon Dioxide 21 L (22-30) mmol/L BUN 95 H (9-20) mg/dL Creatinine 2.58 H (0.66-1.25) mg/dL Glucose 127 H (74-99) mg/dL POC Glucose (mg/dL) 163 H 190 H (70-110) mg/dL Hemoglobin A1c (<=6.0) % Osmolality (275-295) mOsm/kg Plasma Lactic Acid Evaristo (0.7-2.0) mmol/L Calcium (8.4-10.2) mg/dL Creatine Kinase (55-170) U/L 11/14/24 11/14/24 11/14/24 Range/Units 17:19 18:03 19:09 WBC (3.8-10.6) k/uL MCHC (31.0-37.0) g/dL Plt Count (150-450) k/uL Neutrophils # (1.3-7.7) k/uL Sodium (137-145) mmol/L Chloride (98-107) mmol/L Carbon Dioxide (22-30) mmol/L BUN (9-20) mg/dL Creatinine (0.66-1.25) mg/dL Glucose (74-99) mg/dL POC Glucose (mg/dL) 113 H 182 H 151 H (70-110) mg/dL Hemoglobin A1c (<=6.0) % Osmolality (275-295) mOsm/kg Plasma Lactic Acid Evaristo (0.7-2.0) mmol/L Calcium (8.4-10.2) mg/dL Creatine Kinase (55-170) U/L Microbiology - Last 24 Hours (Table) 11/13/24 07:40 Blood Culture - Preliminary Blood Assessment and Plan Assessment: * Altered mental status, likely due to metabolic encephalopathy. Limited examination is nonfocal. No definitive evidence of acute CVA. * Hyperosmolar hyperglycemic state * Type 2 diabetes, poorly controlled * Acute kidney injury * Respiratory acidosis * Lactic acidosis * Hyperkalemia, improved * Rhabdomyolysis * COPD * Substance abuse urine positive for cocaine. * Left ICA stenosis 70%, severe focal stenosis at the V3/V4 junction of right vertebral artery Plan: * Patient's examination is relatively nonfocal. CT head revealed no acute process. Minimal chronic small vessel ischemic change. * CTA of head and neck revealed segmental mild atherosclerotic narrowing throughout bilateral carotid siphons. No large vessel intracranial arterial occlusion or aneurysm seen. Severe focal stenosis at the V3/V4 junction of the right vertebral artery. Mild, less than 25% proximal right ICA stenosis. Severe, 70% stenosis for a span of 1.0 to 1.5 cm involving the upper left ICA.. * Hemoglobin A1c 11.4. Recommend optimize control of diabetes to target A1c <7.0 * Lipid panel with cholesterol 142, LDL 68, HDL 53 and triglycerides 103. * Continue aspirin 325 mg daily (started this admission). * Treatment of uncontrolled diabetes as per IM and critical care. * Recommend abstinence from substance abuse * Other medical management as per IM and other specialties on board. * Patient receiving Ativan for delirium.
--- NOTE | 2024-11-15 17:12 | P.PN ---
Subjective Progress Note Date: 11/15/24 Patient now admitted to ICU. Patient has HHS. Earlier he was pulling on the lines, requiring Ativan. Patient reported to someone that he does drink although not confirmed by myself. He is on CIWA protocol. Objective - Vital Signs Vital signs: Vital Signs Temp 98.8 F 11/15/24 16:00 Pulse 92 11/15/24 17:00 Resp 28 H 11/15/24 17:00 BP 135/73 11/15/24 17:00 Pulse Ox 92 L 11/15/24 17:00 FiO2 Intake & Output 11/14/24 11/15/24 11/15/24 18:59 06:59 18:59 Intake Total 36.739 8.169 431.530 Output Total 1000 1300 2050 Balance -963.261 -1291.831 -1618.470 Weight 82.9 kg Intake: IV 430 Dextrose 5% in Water 1, 160 000 ml @ 80 mls/hr IV . Q13H8M ANA MARÍA with Sodium Bicarb (1 Meq/ml) 50 ml Rx#:[id number] Invasive Line 1 10 Invasive Line 2 10 Sodium Chloride 0.45% 1, 250 000 ml @ 125 mls/hr IV . Q8H24M ANA MARÍA with Sodium Bicarb (1 Meq/ml) 50 ml Rx#:[id number] Intake, IV Titration 36.739 8.169 1.530 Amount Insulin Regular 100 unit 36.739 8.169 1.530 In Sodium Chloride 0.9% 100 ml @ 0.1 UNITS/KG/HR 10.537 mls/hr IV .Q9H36M ANA MARÍA Rx#:[id number] Oral 0 Output: Urine 1000 1300 2050 Other: # Bowel Movements 0 - Exam Patient asleep at this time because he received Ativan. - Labs CBC & Chem 7: 11/15/24 05:08 11/15/24 12:29 Labs: Abnormal Lab Results - Last 24 Hours (Table) 11/14/24 11/14/24 11/14/24 Range/Units 17:19 18:03 19:09 WBC (3.8-10.6) k/uL Plt Count (150-450) k/uL Neutrophils # (1.3-7.7) k/uL Sodium (137-145) mmol/L Chloride (98-107) mmol/L Carbon Dioxide (22-30) mmol/L BUN (9-20) mg/dL Creatinine (0.66-1.25) mg/dL Glucose (74-99) mg/dL POC Glucose (mg/dL) 113 H 182 H 151 H (70-110) mg/dL Creatine Kinase (55-170) U/L 11/14/24 11/14/24 11/14/24 Range/Units 20:06 21:08 22:08 WBC (3.8-10.6) k/uL Plt Count (150-450) k/uL Neutrophils # (1.3-7.7) k/uL Sodium (137-145) mmol/L Chloride (98-107) mmol/L Carbon Dioxide (22-30) mmol/L BUN (9-20) mg/dL Creatinine (0.66-1.25) mg/dL Glucose (74-99) mg/dL POC Glucose (mg/dL) 192 H 179 H 238 H (70-110) mg/dL Creatine Kinase (55-170) U/L 11/14/24 11/14/24 11/15/24 Range/Units 22:50 23:17 00:22 WBC (3.8-10.6) k/uL Plt Count (150-450) k/uL Neutrophils # (1.3-7.7) k/uL Sodium (137-145) mmol/L Chloride (98-107) mmol/L Carbon Dioxide (22-30) mmol/L BUN (9-20) mg/dL Creatinine (0.66-1.25) mg/dL Glucose (74-99) mg/dL POC Glucose (mg/dL) 325 H 413 H 570 H* (70-110) mg/dL Creatine Kinase (55-170) U/L 11/15/24 11/15/24 11/15/24 Range/Units 00:25 01:12 02:22 WBC (3.8-10.6) k/uL Plt Count (150-450) k/uL Neutrophils # (1.3-7.7) k/uL Sodium (137-145) mmol/L Chloride (98-107) mmol/L Carbon Dioxide (22-30) mmol/L BUN (9-20) mg/dL Creatinine (0.66-1.25) mg/dL Glucose (74-99) mg/dL POC Glucose (mg/dL) 210 H 169 H 172 H (70-110) mg/dL Creatine Kinase (55-170) U/L 11/15/24 11/15/24 11/15/24 Range/Units 03:18 04:29 05:08 WBC 11.0 H (3.8-10.6) k/uL Plt Count 69 L (150-450) k/uL Neutrophils # 8.5 H (1.3-7.7) k/uL Sodium (137-145) mmol/L Chloride (98-107) mmol/L Carbon Dioxide (22-30) mmol/L BUN (9-20) mg/dL Creatinine (0.66-1.25) mg/dL Glucose (74-99) mg/dL POC Glucose (mg/dL) 170 H 260 H (70-110) mg/dL Creatine Kinase (55-170) U/L 11/15/24 11/15/24 11/15/24 Range/Units 05:08 05:08 05:35 WBC (3.8-10.6) k/uL Plt Count (150-450) k/uL Neutrophils # (1.3-7.7) k/uL Sodium 152 H (137-145) mmol/L Chloride 118 H (98-107) mmol/L Carbon Dioxide 18 L (22-30) mmol/L BUN 68 H (9-20) mg/dL Creatinine 2.23 H (0.66-1.25) mg/dL Glucose 217 H (74-99) mg/dL POC Glucose (mg/dL) 191 H (70-110) mg/dL Creatine Kinase 1393 H* (55-170) U/L 11/15/24 11/15/24 11/15/24 Range/Units 06:31 07:17 08:08 WBC (3.8-10.6) k/uL Plt Count (150-450) k/uL Neutrophils # (1.3-7.7) k/uL Sodium (137-145) mmol/L Chloride (98-107) mmol/L Carbon Dioxide (22-30) mmol/L BUN (9-20) mg/dL Creatinine (0.66-1.25) mg/dL Glucose (74-99) mg/dL POC Glucose (mg/dL) 262 H 244 H 261 H (70-110) mg/dL Creatine Kinase (55-170) U/L 11/15/24 11/15/24 11/15/24 Range/Units 09:01 10:01 12:29 WBC (3.8-10.6) k/uL Plt Count (150-450) k/uL Neutrophils # (1.3-7.7) k/uL Sodium 152 H (137-145) mmol/L Chloride 119 H (98-107) mmol/L Carbon Dioxide 20 L (22-30) mmol/L BUN 56 H (9-20) mg/dL Creatinine 2.03 H (0.66-1.25) mg/dL Glucose 278 H (74-99) mg/dL POC Glucose (mg/dL) 309 H 221 H (70-110) mg/dL Creatine Kinase (55-170) U/L 11/15/24 11/15/24 11/15/24 Range/Units 12:54 13:26 16:45 WBC (3.8-10.6) k/uL Plt Count (150-450) k/uL Neutrophils # (1.3-7.7) k/uL Sodium (137-145) mmol/L Chloride (98-107) mmol/L Carbon Dioxide (22-30) mmol/L BUN (9-20) mg/dL Creatinine (0.66-1.25) mg/dL Glucose (74-99) mg/dL POC Glucose (mg/dL) 239 H 216 H 171 H (70-110) mg/dL Creatine Kinase (55-170) U/L Microbiology - Last 24 Hours (Table) 11/13/24 07:40 Blood Culture - Preliminary Blood Assessment and Plan Assessment: * Altered mental status, likely due to metabolic encephalopathy. Limited examination is nonfocal. No definitive evidence of acute CVA. * Hyperosmolar hyperglycemic state * Type 2 diabetes, poorly controlled * Acute kidney injury * Respiratory acidosis * Lactic acidosis * Hyperkalemia, improved * Rhabdomyolysis * COPD * Substance abuse urine positive for cocaine. * Left ICA stenosis 70%, severe focal stenosis at the V3/V4 junction of right vertebral artery Plan: * Patient's examination is relatively nonfocal. CT head revealed no acute process. Minimal chronic small vessel ischemic change. * CTA of head and neck revealed segmental mild atherosclerotic narrowing throughout bilateral carotid siphons. No large vessel intracranial arterial occlusion or aneurysm seen. Severe focal stenosis at the V3/V4 junction of the right vertebral artery. Mild, less than 25% proximal right ICA stenosis. Severe, 70% stenosis for a span of 1.0 to 1.5 cm involving the upper left ICA.. * Hemoglobin A1c 11.4. Recommend optimize control of diabetes to target A1c <7.0 * Lipid panel with cholesterol 142, LDL 68, HDL 53 and triglycerides 103. * Check B12, folate, RPR, TSH. * Repeat CK in the morning. Current CK level 1393. * Continue aspirin 325 mg daily (started this admission). * Treatment of uncontrolled diabetes as per IM and critical care. * Recommend abstinence from substance abuse * Other medical management as per IM and other specialties on board. * Patient receiving Ativan for delirium.
[2024-11-15 18:24] LABS: Potassium 4.2 mmol/L (3.5-5.1)
[2024-11-15 20:33] LABS: Glucose,Whole Blood 202 mg/dL (70-110)
[2024-11-15] MEDS: INSULIN DETEMIR (LEVEMIR) 100 UNIT/ML SYR SQ SCH (21:03)
[2024-11-15 22:06] LABS: Potassium 4.1 mmol/L (3.5-5.1)
[2024-11-16 03:39] LABS: Basophils % (A) 0 %; Eosinophils # (A) 0.3 k/uL (0-0.7); Eosinophils % (A) 3 %; HCT 47.3 % (39.0-53.0); HGB 15.2 gm/dL (13.0-17.5); Hypochromasia Slight; Lymphocytes # (A) 1.5 k/uL (1.0-4.8); Lymphocytes % (A) 14 %; MCH 30.2 pg (25.0-35.0); MCHC 32.1 g/dL (31.0-37.0); MCV 94.2 fL (80.0-100.0); Monocytes # (A) 0.5 k/uL (0-1.0); Monocytes % (A) 5 %; Neutrophils # (A) 8.1 k/uL (1.3-7.7); Neutrophils % (A) 77 %; RBC 5.02 m/uL (4.30-5.90); RDW 14.6 % (11.5-15.5); WBC 10.6 k/uL (3.8-10.6)
[2024-11-16 03:50] LABS: Platelet Count 72 k/uL (150-450)
[2024-11-16 05:59] LABS: African American GFR (CKD) 47 (>60 ml/min/1.73 sqM); Anion Gap 9 mmol/L; Blood Urea Nitrogen 39 mg/dL (9-20); Carbon Dioxide 29 mmol/L (22-30); Chloride 117 mmol/L (98-107); Creatine Kinase 736 U/L (55-170); Glucose 135 mg/dL (74-99); Magnesium 1.2 mg/dL (1.6-2.3); Non-African American GFR(CKD) 41 (>60 ml/min/1.73 sqM); Potassium 3.8 mmol/L (3.5-5.1); Sodium 155 mmol/L (137-145)
[2024-11-16] MEDS ORDERED: Magnesium Replacement Protocol 1 EACH MISC MISCELLANE PRN (06:13)
[2024-11-16] MEDS: MAGNESIUM SULFATE-D5W PMX 1 GM in DEXTROSE/WATER 1 100ML.BAG IVPB SCH (06:25)
[2024-11-16] MEDS: DEXTROSE 5% IN WATER 1,000 ML IV ONE (06:44)
[2024-11-16] MEDS ORDERED: INSULIN DETEMIR (LEVEMIR) 100 UNIT/ML SYR SQ SCH (07:00)
[2024-11-16] MEDS ORDERED: Potassium Replacement Protocol 1 EACH MISC MISCELLANE PRN (07:10)
[2024-11-16] MEDS: POTASSIUM CHLORIDE 10 MEQ in WATER FOR INJECTION 1 100ML.BAG IVPB SCH (09:07)
[2024-11-16] MEDS: DEXTROSE 5% IN WATER 1,000 ML IV SCH (09:45)
[2024-11-16] MEDS ORDERED: IPRATROPIUM-ALBUTEROL 3 ML NEB INHALATION PRN (09:57)
--- NOTE | 2024-11-16 10:28 | P.PN ---
Subjective Patient is seen for follow-up for hyperkalemia and hyperosmolar nonketotic state. Patient remains confused. He was agitated and received Ativan. Currently having an IV placed. No improvement in mentation. Neurology has been consulted. Serum sodium increased to 155 today. Serum creatinine down to 1.69 Current IV fluids is D5W at 100 cc an hour which was changed from D5W with 1 amp of sodium bicarb. 24-hour urine output at 3.5 L. Objective - Vital Signs Vital signs: Vital Signs Temp 97.9 F 11/16/24 04:00 Pulse 98 11/16/24 07:00 Resp 29 H 11/16/24 07:00 BP 124/63 11/16/24 07:00 Pulse Ox 98 11/16/24 07:00 FiO2 Intake & Output 11/15/24 11/16/24 11/16/24 18:59 06:59 18:59 Intake Total 511.530 980 110 Output Total 2175 1405 130 Balance -1663.470 -425 -20 Weight 82.9 kg 82.1 kg Intake: IV 510 980 110 Dextrose 5% in Water 1, 100 000 ml @ 100 mls/hr IV . Q10H ONE Rx#:[id number] Dextrose 5% in Water 1, 240 960 000 ml @ 80 mls/hr IV . Q13H8M ANA MARÍA with Sodium Bicarb (1 Meq/ml) 50 ml Rx#:[id number] Invasive Line 1 10 Invasive Line 2 10 20 Invasive Line 4 10 Sodium Chloride 0.45% 1, 250 000 ml @ 125 mls/hr IV . Q8H24M ANA MARÍA with Sodium Bicarb (1 Meq/ml) 50 ml Rx#:[id number] Intake, IV Titration 1.530 Amount Insulin Regular 100 unit 1.530 In Sodium Chloride 0.9% 100 ml @ 0.1 UNITS/KG/HR 10.537 mls/hr IV .Q9H36M ANA MARÍA Rx#:[id number] Oral 0 Output: Urine 2175 1405 130 Other: Voiding Method Indwelling Catheter Indwelling Catheter Indwelling Catheter # Bowel Movements 0 0 - Exam Patient is sedated. He received Ativan Examination of the heart S1 and S2 Examination of the lungs bilateral breath sounds are heard Abdomen is soft nontender Examination lower extremity shows no significant edema Patient is able to move all 4 extremities. - Labs CBC & Chem 7: 11/16/24 02:56 11/16/24 05:32 Labs: Abnormal Lab Results - Last 24 Hours (Table) 11/15/24 11/15/24 11/15/24 Range/Units 05:08 12:29 12:54 Plt Count (150-450) k/uL Neutrophils # (1.3-7.7) k/uL Sodium 152 H (137-145) mmol/L Chloride 119 H (98-107) mmol/L Carbon Dioxide 20 L (22-30) mmol/L BUN 56 H (9-20) mg/dL Creatinine 2.03 H (0.66-1.25) mg/dL Glucose 278 H (74-99) mg/dL POC Glucose (mg/dL) 239 H (70-110) mg/dL Magnesium (1.6-2.3) mg/dL Creatine Kinase 1393 H* (55-170) U/L Vitamin B12 (200.0-944.0) pg/mL 11/15/24 11/15/24 11/15/24 Range/Units 13:26 16:45 17:55 Plt Count (150-450) k/uL Neutrophils # (1.3-7.7) k/uL Sodium 152 H (137-145) mmol/L Chloride 120 H (98-107) mmol/L Carbon Dioxide 21 L (22-30) mmol/L BUN (9-20) mg/dL Creatinine (0.66-1.25) mg/dL Glucose (74-99) mg/dL POC Glucose (mg/dL) 216 H 171 H (70-110) mg/dL Magnesium (1.6-2.3) mg/dL Creatine Kinase (55-170) U/L Vitamin B12 (200.0-944.0) pg/mL 11/15/24 11/15/24 11/16/24 Range/Units 20:32 21:33 02:56 Plt Count 72 L (150-450) k/uL Neutrophils # 8.1 H (1.3-7.7) k/uL Sodium 151 H (137-145) mmol/L Chloride 119 H (98-107) mmol/L Carbon Dioxide (22-30) mmol/L BUN (9-20) mg/dL Creatinine (0.66-1.25) mg/dL Glucose (74-99) mg/dL POC Glucose (mg/dL) 202 H (70-110) mg/dL Magnesium (1.6-2.3) mg/dL Creatine Kinase (55-170) U/L Vitamin B12 (200.0-944.0) pg/mL 11/16/24 11/16/24 Range/Units 05:32 21:33 Plt Count (150-450) k/uL Neutrophils # (1.3-7.7) k/uL Sodium 155 H (137-145) mmol/L Chloride 117 H (98-107) mmol/L Carbon Dioxide (22-30) mmol/L BUN 39 H (9-20) mg/dL Creatinine 1.69 H (0.66-1.25) mg/dL Glucose 135 H (74-99) mg/dL POC Glucose (mg/dL) (70-110) mg/dL Magnesium 1.2 L (1.6-2.3) mg/dL Creatine Kinase 736 H (55-170) U/L Vitamin B12 2164.0 H (200.0-944.0) pg/mL Microbiology - Last 24 Hours (Table) 11/13/24 07:40 Blood Culture - Preliminary Blood Assessment and Plan Assessment: 1. Acute kidney injury associated with severe volume depletion hyper osmolar nonketotic diabetic state. Nonoliguric. UA is benign. No previous labs available for comparison. 2. Hypernatremia associated with free water deficit. Serum sodium was 140 on admission which was falsely low due to severe hyperglycemia. Corrected sodium was 159. 3. Hyperkalemia associated with acute severe hyperglycemia and acute kidney injury. Improved with improved blood sugar level 4. History of polysubstance abuse with drug screen positive for cocaine 5. Respiratory acidosis with CO2 retention 6. Mental status changes secondary to metabolic encephalopathy Plan: Continue D5W and increase to 150 cc an hour. Blood sugar was not elevated. It was 125 this morning. Repeat sodium in 4 hours
[2024-11-16] MEDS: DEXMEDETOMIDINE/0.9% NACL(PMX) 400 MCG in EMPTY BAG 1 BAG IV SCH (10:47)
[2024-11-16 11:11] LABS: Glucose,Whole Blood 238 mg/dL (70-110)
[2024-11-16] MEDS: THIAMINE 100 MG TAB PO SCH (11:16)
[2024-11-16] MEDS: CHLORHEXIDINE GLUCONATE 15 ML CUP MUCOUS MEM SCH (11:17)
[2024-11-16] MEDS: ASPIRIN 300 MG SUPP RECTAL SCH (11:27)
[2024-11-16] MEDS: THIAMINE 100 MG/ML 2 ML VIAL IVP SCH (11:27)
[2024-11-16] MEDS: IPRATROPIUM-ALBUTEROL 3 ML NEB INHALATION SCH (12:02)
[2024-11-16 12:03] LABS: ABG Base Excess 0.5 mmol/L; ABG HCO3 27 mmol/L (21-25); ABG PCO2 49 mmHg (35-45); ABG PH 7.35 (7.35-7.45); ABG PO2 71 mmHg (83-108); ABG TCO2 28 mmol/L (19-24); Allen Test Performed? Yes
--- NOTE | 2024-11-16 12:10 | XR ---
EXAMINATION TYPE: XR chest 1V portable DATE OF EXAM: 11/16/2024 12:01 PM COMPARISON: Chest x-ray 2 days earlier CLINICAL INDICATION: Male, 69 years old with history of tachypnea, TECHNIQUE: Single frontal semiupright view of the chest is obtained. FINDINGS: Heart stable and normal in size. There is persistent diffuse reticular opacities bilateral ly greatest in the periphery. There are additional areas of increased opacity right suprahilar region and bilateral lower lung redemonstrated. No pleural effusion seen. Osseous structures are intact. IMPRESSION: Diffuse reticular interstitial changes bilaterally favor fibrosis. Areas of acute infiltr ate cannot be excluded on background of chronic change. No significant change from most recent prior. [facility], , 11/16/2024 12:08 PM
[2024-11-16] MEDS: methylPREDNISolone SOD SUCCI 125 MG/2 ML VIAL IV SCH (12:35)
--- NOTE | 2024-11-16 13:21 | P.PN ---
Subjective Progress Note Date: 11/16/24 Pt remains obtunded. Today has shallow tachypneic breathing up to 35-40 despite being placed on precedex gtt and CIWA protocol. CXR findings c/w diffuse interstitial opacities likely 2/2 fibrosis. ABG shows respiratory acidosis and hypoxemia. Discussed with pulmonology and they felt pt likely having copd exacerbation and would like to initiate steroids and standing nebulizers. 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 Gen: In moderate distress, obtunded HEENT: normocephalic, atraumatic, hearing acuity is intant, mucous membranes moist CVS: perfusing all extremities well, no pitting edema, Respiratory: symmetric chest expansion, accessory muscle use is present, diffuse wheezing and diminished lung sounds GI: soft, NTTP, ND, : no suprapubic tenderness, no CVA tenderness MSK/Derm: no rashes, cyanosis Neuro: CN II-XII intact, no motor weakness, Hospital course: Hospital Course: Patient is a 69-year-old male with history of diabetes presenting with altered mentation. In the ED, temperature was 97.5, pulse 113, respiratory rate 20, saturating at 100% on room air, blood pressure 118/68. WBC 17.6, platelet 139, INR 1.3, pH 7.26, pCO2 64, potassium 7.2 came down to 5.6, creatinine 4.48, anion gap 21, glucose 1276, lactic acid 4.8, total calcium 11.7, CK3 32, troponin 0.027, BNP 215, ketones negative, urinalysis shows 4+ glucose, toxi cology positive for cocaine, respiratory viral panel negative. Head CT did not show any acute process. Chest x-ray independently interpreted, shows interstitial opacities bilateral. Head and neck CTA showed severe focal stenosis at the V3/V4 junction of the right vertebral artery, mild right ICA stenosis, severe 70% stenosis of left ICA. Renal ultrasound did not show any hydronephrosis. Patient admitted on insulin drip for HHS. Nephrology, pulmonology consulted. Patient also given IV antibiotics and IV fluids in the ER. Neurology and vascular surgery also consulted. Blood sugars have down trended with insulin drip, mental status has been improving. Patient remains hypernatremic. Continued on hypotonic fluids. Assessment and Plan: Patient is critically ill, needs close monitoring. Prognosis guarded. Hyperosmolar hyperglycemic state in a type II diabetic Acute metabolic encephalopathy Hypernatremia Acute kidney injury, resolving High anion gap metabolic acidosis Uremia Severe dehydration Mild rhabdomyolysis Leukocytosis Polysubstance use, cocaine positive Carotid artery stenosis, focal vertebral artery stenosis COPD Exacerbation with acute hypoxemic and hypercarbic respiratory failure Pulmonary Fibrosis -Nephrology transitioned pt's IVF to D5 water with bicarb -subcu insulin Levemir 10 units nightly, sliding scale insulin ACH S -Empirically continue ceftriaxone 2 g IV every 24 hours, and status post azithromycin 500 mg daily oral -ICU following -Neurochecks, telemetry -Neurology also following, started patient on aspirin 325 daily -Repeat CK level, may consider atorvastatin -Patient may be withdrawing from cocaine as well, started on Ativan 1 mg IV every 6 hours as needed, monitor for sedation -titrate precedex gtt -Vascular surgery recommending outpatient follow-up with neurointerventional list Thrombocytopenia -Low 4T score, low probability of HIT -Transition patient from heparin to fondaparinux for DVT PPx -Continue to monitor Lactic acidosis, resolved Mild hyperkalemia, resolved Hyperkalemia, resolved DVT ppx: see above Code status: Full code Anticipated discharge place: Pending clinical course Anticipated discharge time: Pending clinical course Objective - Vital Signs Vital signs: Vital Signs Temp 98.6 F 11/16/24 12:00 Pulse 99 11/16/24 12:13 Resp 37 H 11/16/24 12:00 BP 101/63 11/16/24 12:00 Pulse Ox 96 11/16/24 12:00 FiO2 Intake & Output 11/15/24 11/16/24 11/16/24 18:59 06:59 18:59 Intake Total 511.531 766 3512 Output Total 2175 1405 955 Balance -1663.470 -425 555 Weight 82.9 kg 82.1 kg 82.1 kg Intake: IV 385 480 0110 Dextrose 5% in Water 1, 650 000 ml @ 100 mls/hr IV . Q10H ONE Rx#:[id number] Dextrose 5% in Water 1, 150 000 ml @ 150 mls/hr IV . Q6H40M ANA MARÍA Rx#:[id number] Dextrose 5% in Water 1, 240 960 000 ml @ 80 mls/hr IV . Q13H8M ANA MARÍA with Sodium Bicarb (1 Meq/ml) 50 ml Rx#:[id number] Invasive Line 1 10 Invasive Line 2 10 20 Invasive Line 4 10 Magnesium Sulfate-D5w Pmx 400 1 gm In Dextrose/Water 1 100ml.bag @ 100 mls/hr IVPB Q1H ANA MARÍA Rx#: [id number] Potassium Chloride 10 meq 200 In Water For Injection 1 100ml.bag @ 100 mls/hr IVPB Q1H ANA MARÍA Rx#: [id number] Sodium Chloride 0.45% 1, 250 000 ml @ 125 mls/hr IV . Q8H24M ANA MARÍA with Sodium Bicarb (1 Meq/ml) 50 ml Rx#:[id number] cefTRIAXone 2 gm In 100 Sodium Chloride 0.9% 50 ml @ 100 mls/hr IVPB Q24HR ANA MARÍA Rx#:[id number] Intake, IV Titration 1.530 Amount Insulin Regular 100 unit 1.530 In Sodium Chloride 0.9% 100 ml @ 0.1 UNITS/KG/HR 10.537 mls/hr IV .Q9H36M ANA MARÍA Rx#:[id number] Oral 0 Output: Urine 2175 1405 955 Other: Voiding Method Indwelling Catheter Indwelling Catheter Indwelling Catheter # Bowel Movements 0 0 0 - Labs CBC & Chem 7: 11/16/24 02:56 11/16/24 05:32 Labs: Abnormal Lab Results - Last 24 Hours (Table) 11/15/24 11/15/24 11/15/24 Range/Units 13:26 16:45 17:55 Plt Count (150-450) k/uL Neutrophils # (1.3-7.7) k/uL ABG pCO2 (35-45) mmHg ABG pO2 (83-108) mmHg ABG HCO3 (21-25) mmol/L ABG Total CO2 (19-24) mmol/L Sodium 152 H (137-145) mmol/L Chloride 120 H (98-107) mmol/L Carbon Dioxide 21 L (22-30) mmol/L BUN (9-20) mg/dL Creatinine (0.66-1.25) mg/dL Glucose (74-99) mg/dL POC Glucose (mg/dL) 216 H 171 H (70-110) mg/dL Magnesium (1.6-2.3) mg/dL Creatine Kinase (55-170) U/L Vitamin B12 (200.0-944.0) pg/mL 11/15/24 11/15/24 11/16/24 Range/Units 20:32 21:33 02:56 Plt Count 72 L (150-450) k/uL Neutrophils # 8.1 H (1.3-7.7) k/uL ABG pCO2 (35-45) mmHg ABG pO2 (83-108) mmHg ABG HCO3 (21-25) mmol/L ABG Total CO2 (19-24) mmol/L Sodium 151 H (137-145) mmol/L Chloride 119 H (98-107) mmol/L Carbon Dioxide (22-30) mmol/L BUN (9-20) mg/dL Creatinine (0.66-1.25) mg/dL Glucose (74-99) mg/dL POC Glucose (mg/dL) 202 H (70-110) mg/dL Magnesium (1.6-2.3) mg/dL Creatine Kinase (55-170) U/L Vitamin B12 (200.0-944.0) pg/mL 11/16/24 11/16/24 11/16/24 Range/Units 05:32 11:09 12:01 Plt Count (150-450) k/uL Neutrophils # (1.3-7.7) k/uL ABG pCO2 49 H (35-45) mmHg ABG pO2 71 L (83-108) mmHg ABG HCO3 27 H (21-25) mmol/L ABG Total CO2 28 H (19-24) mmol/L Sodium 155 H (137-145) mmol/L Chloride 117 H (98-107) mmol/L Carbon Dioxide (22-30) mmol/L BUN 39 H (9-20) mg/dL Creatinine 1.69 H (0.66-1.25) mg/dL Glucose 135 H (74-99) mg/dL POC Glucose (mg/dL) 238 H (70-110) mg/dL Magnesium 1.2 L (1.6-2.3) mg/dL Creatine Kinase 736 H (55-170) U/L Vitamin B12 (200.0-944.0) pg/mL 11/16/24 Range/Units 21:33 Plt Count (150-450) k/uL Neutrophils # (1.3-7.7) k/uL ABG pCO2 (35-45) mmHg ABG pO2 (83-108) mmHg ABG HCO3 (21-25) mmol/L ABG Total CO2 (19-24) mmol/L Sodium (137-145) mmol/L Chloride (98-107) mmol/L Carbon Dioxide (22-30) mmol/L BUN (9-20) mg/dL Creatinine (0.66-1.25) mg/dL Glucose (74-99) mg/dL POC Glucose (mg/dL) (70-110) mg/dL Magnesium (1.6-2.3) mg/dL Creatine Kinase (55-170) U/L Vitamin B12 2164.0 H (200.0-944.0) pg/mL Microbiology - Last 24 Hours (Table) 11/13/24 07:40 Blood Culture - Preliminary Blood
[2024-11-16 13:24] LABS: Magnesium 2.1 mg/dL (1.6-2.3)
--- NOTE | 2024-11-16 14:16 | P.PN ---
Subjective Progress Note Date: 11/16/24 69-year-old male patient, diabetic, presents emerged part because of altered me ntation. Immediately, the patient was noted to be hyperglycemic and had significant metabolic abnormalities consistent with hyperosmolar nonketotic state. Noted the blood sugar was measured to be at 1276. Ketones were negative. UA was showing plus for glucose. Urine drug screen was positive for cocaine. Viral 4 Plex was negative. In terms of the blood work, the patient's initial sodium level was at 140, potassium level was at 7.2, BUN was 163 with a creatinine of 4.48 with a anion gap of 21. Lactic acid was measured at 3.8 initially and is peaked at 5.8. LFTs were normal. CPK was 332. Troponins were negative. proBNP level was 215. Troponins were negative. Alcohol level was less than 10. Acetone was negative. The white cell count was at 17.6 with a hemoglobin of 17 and a platelet count of 139. Coagulation profile was within normal limits. Chest x-ray was done Emergency Department and it showed diffuse interstitial changes bilaterally, chronicity is unknown. CAT scan of the brain showed no evidence of any acute bleed or CVA it was consistent with mild chronic small vessel ischemic changes and there was no evidence of an acute CVA. CT angiogram of the brain showed COPD with moderate emphysematous changes in lung apices bilaterally. Less than 25% proximal right ICA stenosis, 70% left ICA disease and the [place] vertebral arteries were small in caliber. Based on all this, the patient was started on fluid resuscitation. The patient was given normal saline, a total of 2 L and subsequently the patient was started on a bicarb infusion. Urine output is adequate for now. Subsequent blood work on this patient showed drop in the creatinine down to 3.12 with a BUN of 126. Sodium level came at 160 following the correction of the blood sugar. Most recent blood sugars down to 186 as the patient is currently on insulin drip for blood sugar control. Lactic acid level is currently at 5.0. Neurologically, the patient remains altered and confused. Unable to volunteer any history. He does mumble. He is afebrile for now. He is on room air oxygen. The cardiac rhythm is sinus. Ultrasound the kidneys was done and it showed no evidence of any hydronephrosis. On 11/14/2024, the patient is being seen for a follow-up. Seems to be much more alert and awake compared to yesterday although he remains somewhat confused. Family is at the bedside. The patient is currently on insulin drip running at 4 units an hour. The patient is also on half-normal saline running at 150 cc an hour. The patient's blood work from this morning showed a sodium level of 153 with a potassium level of 4.8, bicarb is at 18 with a BUN of 110 and a creatinine of 2.9. Noted the creatinine has been gradually improving. Potassium level is also stabilized. Sodium level is improving. The white cell count is 18.9 with a hemoglobin of 16.3. The chest x-ray shows chronic coarse interstitial infiltrates probably due to chronic ILD/fibrosis. The patient remains on empiric antibiotic coverage with IV Rocephin and Zithromax. Afebrile. Hemodynamically stable on no pressors. He has already started some soft diet. Urine drug screen is positive for cocaine. On 11/15/2024, the patient is being seen for a follow-up. The patient is confused. There could be a component of alcohol withdrawal syndrome as the patient admits to drinking 1 pint of alcohol on a daily basis. Hemodynamically stable. Continues to receive fluids and the patient remains on half-normal saline at rate of 150 cc an hour. A sitter is at the bedside. No focal neurological deficits. The blood sugar control is improved. Most recent electrolytes showed a sodium level of 152, potassium level is at 4.7, chlorides 119 and bicarb level is at 20. BUN is 56 with a creatinine of 2.03. Insulin drip was discontinued and the patient was placed on Levemir insulin 10 units in addition to his sign scale coverage. The patient is awaiting to be transferred to the intensive care unit. He was seen in the emergency department this morning. He is white cell count is 11 with a heme of 14.7 and platelet count of 69. He is currently on room air oxygen with a pulse ox of 95%. No signs of any respiratory distress. On 11/16/2024, patient is still confused. Breathing is slightly more labored and the patient is also bronchospastic and wheezy. Based on that, a blood gas was obtained and the patient was found to have a pH of 7.35 with a pCO2 of 49 and pO2 of 71. Chest x-ray showing chronic interstitial pulmonary infiltrates bilaterally, could be related to an underlying chronic fibrosis and background COPD. Meanwhile, the patient continues to be resuscitated with IV fluids. The patient has been switched to D5 water which is running at a rate of 100 cc an hour and this was a total of 250 cc an hour. The patient remains on Levemir insulin 10 units twice daily and a sliding scale coverage. He remains on 2 L of oxygen by nasal cannula. Suspect delirium tremens as the patient has a vague history of alcoholism. The patient is currently on low-dose Precedex. Neurologic exam is nonfocal. The patient has a sitter at the bedside. The white cell count of 10 with a heme of 15 and a platelet count of 72. Sodium is at 155, BUN 39 with a creatinine of 1.6. CPK 736, improving. Syphilis antibodies are negative. Objective - Vital Signs Vital signs: Vital Signs Temp 97.9 F 11/16/24 04:00 Pulse 98 11/16/24 07:00 Resp 29 H 11/16/24 07:00 BP 124/63 11/16/24 07:00 Pulse Ox 98 11/16/24 07:00 FiO2 Intake & Output 11/15/24 11/16/24 11/16/24 18:59 06:59 18:59 Intake Total 511.530 980 110 Output Total 2175 1405 130 Balance -1663.470 -425 -20 Weight 82.9 kg 82.1 kg Intake: IV 510 980 110 Dextrose 5% in Water 1, 100 000 ml @ 100 mls/hr IV . Q10H [facility] Rx#:[id number] Dextrose 5% in Water 1, 240 960 000 ml @ 80 mls/hr IV . Q13H8M [facility] with Sodium Bicarb (1 Meq/ml) 50 ml Rx#:[id number] Invasive Line 1 10 Invasive Line 2 10 20 Invasive Line 4 10 Sodium Chloride 0.45% 1, 250 000 ml @ 125 mls/hr IV . Q8H24M [facility] with Sodium Bicarb (1 Meq/ml) 50 ml Rx#:[id number] Intake, IV Titration 1.530 Amount Insulin Regular 100 unit 1.530 In Sodium Chloride 0.9% 100 ml @ 0.1 UNITS/KG/HR 10.537 mls/hr IV .Q9H36M [facility] Rx#:[id number] Oral 0 Output: Urine 2175 1405 130 Other: Voiding Method Indwelling Catheter Indwelling Catheter Indwelling Catheter # Bowel Movements 0 0 - Exam The patient is confused, unable to communicate, currently on room air oxygen. No sign of any significant respiratory distress. Well resuscitated and hydrated at this point. Head exam is unremarkable. No scleral icterus or corneal arcus noted. Neck is without jugular venous distension, thyromegaly, or carotid bruits. Carotid upstrokes are brisk bilaterally. Lungs are are bronchospastic and wheezy and the patient has a prolongation of the exhalation phase of breathing. Cardiac exam reveals the PMI to be normally sized and situated. Rhythm is regular. First and second heart sounds normal. No murmurs, rubs or gallops. Abdominal exam reveals normal bowel sounds, no masses, no organomegaly and no aortic enlargement. Extremities are nonedematous and both femoral and pedal pulses are normal. Examination of the skin revealed no evidence of significant rashes, suspicious appearing nevi or other concerning lesions. Neurologically, the patient more alert and communicative compared to yesterday. Remains confused.. Overall neurologic exam is nonfocal. - Labs CBC & Chem 7: 11/16/24 02:56 11/16/24 12:58 Labs: Abnormal Lab Results - Last 24 Hours (Table) 11/15/24 11/15/24 11/15/24 Range/Units 05:08 10:01 12:29 Plt Count (150-450) k/uL Neutrophils # (1.3-7.7) k/uL Sodium 152 H (137-145) mmol/L Chloride 119 H (98-107) mmol/L Carbon Dioxide 20 L (22-30) mmol/L BUN 56 H (9-20) mg/dL Creatinine 2.03 H (0.66-1.25) mg/dL Glucose 278 H (74-99) mg/dL POC Glucose (mg/dL) 221 H (70-110) mg/dL Magnesium (1.6-2.3) mg/dL Creatine Kinase 1393 H* (55-170) U/L Vitamin B12 (200.0-944.0) pg/mL 11/15/24 11/15/24 11/15/24 Range/Units 12:54 13:26 16:45 Plt Count (150-450) k/uL Neutrophils # (1.3-7.7) k/uL Sodium (137-145) mmol/L Chloride (98-107) mmol/L Carbon Dioxide (22-30) mmol/L BUN (9-20) mg/dL Creatinine (0.66-1.25) mg/dL Glucose (74-99) mg/dL POC Glucose (mg/dL) 239 H 216 H 171 H (70-110) mg/dL Magnesium (1.6-2.3) mg/dL Creatine Kinase (55-170) U/L Vitamin B12 (200.0-944.0) pg/mL 11/15/24 11/15/24 11/15/24 Range/Units 17:55 20:32 21:33 Plt Count (150-450) k/uL Neutrophils # (1.3-7.7) k/uL Sodium 152 H 151 H (137-145) mmol/L Chloride 120 H 119 H (98-107) mmol/L Carbon Dioxide 21 L (22-30) mmol/L BUN (9-20) mg/dL Creatinine (0.66-1.25) mg/dL Glucose (74-99) mg/dL POC Glucose (mg/dL) 202 H (70-110) mg/dL Magnesium (1.6-2.3) mg/dL Creatine Kinase (55-170) U/L Vitamin B12 (200.0-944.0) pg/mL 11/16/24 11/16/24 11/16/24 Range/Units 02:56 05:32 21:33 Plt Count 72 L (150-450) k/uL Neutrophils # 8.1 H (1.3-7.7) k/uL Sodium 155 H (137-145) mmol/L Chloride 117 H (98-107) mmol/L Carbon Dioxide (22-30) mmol/L BUN 39 H (9-20) mg/dL Creatinine 1.69 H (0.66-1.25) mg/dL Glucose 135 H (74-99) mg/dL POC Glucose (mg/dL) (70-110) mg/dL Magnesium 1.2 L (1.6-2.3) mg/dL Creatine Kinase 736 H (55-170) U/L Vitamin B12 2164.0 H (200.0-944.0) pg/mL Microbiology - Last 24 Hours (Table) 11/13/24 07:40 Blood Culture - Preliminary Blood Assessment and Plan Plan: Acute hyperglycemia with hyperosmolar nonketotic hyperglycemic state, improved, currently on Levemir insulin 10 units twice daily and sliding scale coverage. Acute hypernatremia secondary dehydration, currently on D5 water at rate of 150 cc an hour, sodium level is improving, current level is at 155 Altered mentation secondary to above. This is related to metabolic encep halopathy. CT scan of the brain and CT angiogram shows no evidence of an acute stroke. Neurologically, the patient is improving although the patient remains confused. Rule out a component of alcoholic encephalopathy/delirium tremens. The patient is currently on low-dose Precedex Non-anion gap metabolic acidosis, improving Severe dehydration and intravascular volume depletion secondary to above, improving Acute kidney injury, secondary to above versus related to intravascular volume depletion. No evidence of any hydronephrosis, improving Pseudohyponatremia. The sodium level is currently elevated as the patient's blood sugars are being adjusted and corrected. Lactic acidosis with a component of mild anion gap metabolic acidosis. Acetone is negative Rhabdomyolysis, mild Acute hypokalemia secondary to above, improving History of substance abuse with a positive urine drug screen for cocaine Carotid artery stenosis COPD, currently inactive and stable Chronic ILD/fibrosis, will need a CAT scan at a later stage Chronic thrombocytopenia, likely secondary to EtOH use Alcoholism, possible delirium tremens, currently on Precedex Plan Continue IV fluids D5 water at rate of 150 cc an hour Monitor sodium level Continue Levemir insulin 10 units twice daily along with a sign scale coverage. Repeat electrolytes Keep the patient n.p.o. for now Start the patient on DuoNeb nebulized treatments [id number] Blood gases were noted and the patient has a component of mild respiratory acidosis Chest x-ray was noted suggestive of chronic ILD/fibrosis [facility] protocol and monitor mental status and the patient is currently on Precedex Sitter at the bedside Antibiotic coverage essentially empiric at this point in time Heparin subcu for DVT prophylaxis Aspiration precautions Keep n.p.o. for now Will continue to follow Keep the patient in the intensive care unit. This is a critical care evaluation that was done more than 30 minutes. Time with Patient: Greater than 30
[2024-11-16] MEDS: FONDAPARINUX 2.5 MG/0.5 ML SYRINGE SQ SCH (14:31)
[2024-11-16 17:01] LABS: Glucose,Whole Blood 347 mg/dL (70-110)
[2024-11-16] MEDS: SODIUM CHLORIDE 0.9% 1,000 ML IV SCH (17:50)
[2024-11-16 21:18] LABS: Glucose,Whole Blood 279 mg/dL (70-110)
[2024-11-17] MEDS: LORazepam 2 MG/ML INJ IV PRN ×2 (00:14→23:01)
[2024-11-17 04:12] LABS: Basophils % (A) 0 %; Eosinophils # (A) 0.1 k/uL (0-0.7); Eosinophils % (A) 0 %; HGB 13.3 gm/dL (13.0-17.5); Hypochromasia Moderate; Lymphocytes # (A) 0.7 k/uL (1.0-4.8); Lymphocytes % (A) 4 %; MCHC 30.8 g/dL (31.0-37.0); MCV 94.1 fL (80.0-100.0); Mean Platelet Volume 12.7; Monocytes # (A) 0.2 k/uL (0-1.0); Monocytes % (A) 1 %; Neutrophils # (A) 15.3 k/uL (1.3-7.7); Neutrophils % (A) 94 %; RBC 4.58 m/uL (4.30-5.90); WBC 16.3 k/uL (3.8-10.6)
[2024-11-17 04:21] LABS: Platelet Count 77 k/uL (150-450)
[2024-11-17 04:48] LABS: ALT 28 U/L (4-49); AST 30 U/L (17-59); African American GFR (CKD) 47 (>60 ml/min/1.73 sqM); Albumin 2.9 g/dL (3.5-5.0); Alkaline Phosphatase 85 U/L (38-126); Anion Gap 12 mmol/L; Bilirubin,Unconjugated 0.2 mg/dL (0.0-1.1); Blood Urea Nitrogen 32 mg/dL (9-20); Calcium 8.2 mg/dL (8.4-10.2); Carbon Dioxide 22 mmol/L (22-30); Chloride 114 mmol/L (98-107); Glucose 248 mg/dL (74-99); LDH 214 U/L (120-246); Magnesium 1.8 mg/dL (1.6-2.3); Non-African American GFR(CKD) 41 (>60 ml/min/1.73 sqM); Sodium 148 mmol/L (137-145); Total Bilirubin 0.1 mg/dL (0.2-1.3); Total Protein 5.8 g/dL (6.3-8.2)
[2024-11-17] MEDS ORDERED: Magnesium Replacement Protocol 1 EACH MISC MISCELLANE PRN (05:28)
[2024-11-17 05:35] LABS: Large Platelets Present; Tear Drop Cells Present
[2024-11-17 05:46] LABS: C Reactive Protein 14.6 mg/dL (<1.0)
[2024-11-17] MEDS: MAGNESIUM SULFATE-D5W PMX 1 GM in DEXTROSE/WATER 1 100ML.BAG IVPB ONE (06:53)
[2024-11-17] MEDS: DEXTROSE 5% IN WATER 1,000 ML IV SCH ×4 (06:54→17:00)
[2024-11-17] MEDS: DEXTROSE 5% IN WATER 1,000 ML IV ONE (09:16)
--- NOTE | 2024-11-17 11:02 | P.PN ---
Subjective Patient is seen for follow-up for hyperkalemia and hyperosmolar nonketotic state. Mentation is much improved today. Patient is able to communicate and answer questions appropriately. Serum sodium had dropped about 10 points in 8 hours yesterday and therefore he was switched to normal saline for a few hours. Patient was restarted on D5W this morning. 24-hour urine output at 2.3 L Objective - Vital Signs Vital signs: Vital Signs Temp 98.6 F 11/17/24 08:00 Pulse 82 11/17/24 10:00 Resp 25 H 11/17/24 10:00 BP 124/72 11/17/24 10:00 Pulse Ox 100 11/17/24 10:00 FiO2 Intake & Output 11/16/24 11/17/24 11/17/24 18:59 06:59 18:59 Intake Total 2310.773 760 366.969 Output Total 1565 811 245 Balance 745.773 -51 121.969 Weight 82.1 kg 73.2 kg Intake: IV 2295 710 350 Dextrose 5% in Water 1, 650 000 ml @ 100 mls/hr IV . Q10H [facility] Rx#:[id number] Dextrose 5% in Water 1, 875 000 ml @ 150 mls/hr IV . Q6H40M [facility] Rx#:[id number] Dextrose 5% in Water 1, 300 000 ml @ 50 mls/hr IV . Q20H [facility] Rx#:[id number] Invasive Line 4 10 Magnesium Sulfate-D5w Pmx 400 1 gm In Dextrose/Water 1 100ml.bag @ 100 mls/hr IVPB Q1H [facility] Rx#: [id number] Potassium Chloride 10 meq 200 In Water For Injection 1 100ml.bag @ 100 mls/hr IVPB Q1H [facility] Rx#: [id number] Sodium Chloride 0.9% 1, 60 710 50 000 ml @ 60 mls/hr IV . [id number] [facility] Rx#:[id number] cefTRIAXone 2 gm In 100 Sodium Chloride 0.9% 50 ml @ 100 mls/hr IVPB Q24HR [facility] Rx#:[id number] Intake, IV Titration 15.773 0 16.969 Amount Dexmedetomidine/0.9% NaCl 15.773 0 16.969 (Pmx) 400 mcg In Empty Bag 1 bag @ 0.2 MCG/KG/HR 4.105 mls/hr IV .Q24H [facility] [place] Rx#:[id number] Oral 50 Output: Urine 1565 810 245 Stool 1 Other: Voiding Method Indwelling Catheter Indwelling Catheter Indwelling Catheter # Bowel Movements 0 0 0 - Exam Patient is awake, comfortable, answering questions appropriately. Examination of the heart S1 and S2 Examination of the lungs bilateral breath sounds are heard Abdomen is soft nontender Examination lower extremity shows no significant edema Patient is able to move all 4 extremities. - Labs CBC & Chem 7: 11/17/24 03:36 11/17/24 03:36 Labs: Abnormal Lab Results - Last 24 Hours (Table) 11/16/24 11/16/24 11/16/24 Range/Units 11:09 12:01 12:58 WBC (3.8-10.6) k/uL MCHC (31.0-37.0) g/dL Plt Count (150-450) k/uL Neutrophils # (1.3-7.7) k/uL Lymphocytes # (1.0-4.8) k/uL ABG pCO2 49 H (35-45) mmHg ABG pO2 71 L (83-108) mmHg ABG HCO3 27 H (21-25) mmol/L ABG Total CO2 28 H (19-24) mmol/L Sodium 147 H (137-145) mmol/L Chloride 114 H (98-107) mmol/L BUN (9-20) mg/dL Creatinine (0.66-1.25) mg/dL Glucose (74-99) mg/dL POC Glucose (mg/dL) 238 H (70-110) mg/dL Calcium (8.4-10.2) mg/dL Total Bilirubin (0.2-1.3) mg/dL C-Reactive Protein (<1.0) mg/dL Total Protein (6.3-8.2) g/dL Albumin (3.5-5.0) g/dL 11/16/24 11/16/24 11/17/24 Range/Units 17:00 21:17 01:02 WBC (3.8-10.6) k/uL MCHC (31.0-37.0) g/dL Plt Count (150-450) k/uL Neutrophils # (1.3-7.7) k/uL Lymphocytes # (1.0-4.8) k/uL ABG pCO2 (35-45) mmHg ABG pO2 (83-108) mmHg ABG HCO3 (21-25) mmol/L ABG Total CO2 (19-24) mmol/L Sodium 147 H (137-145) mmol/L Chloride (98-107) mmol/L BUN (9-20) mg/dL Creatinine (0.66-1.25) mg/dL Glucose (74-99) mg/dL POC Glucose (mg/dL) 347 H 279 H (70-110) mg/dL Calcium (8.4-10.2) mg/dL Total Bilirubin (0.2-1.3) mg/dL C-Reactive Protein (<1.0) mg/dL Total Protein (6.3-8.2) g/dL Albumin (3.5-5.0) g/dL 11/17/24 11/17/24 Range/Units 03:36 03:36 WBC 16.3 H (3.8-10.6) k/uL MCHC 30.8 L (31.0-37.0) g/dL Plt Count 77 L (150-450) k/uL Neutrophils # 15.3 H (1.3-7.7) k/uL Lymphocytes # 0.7 L (1.0-4.8) k/uL ABG pCO2 (35-45) mmHg ABG pO2 (83-108) mmHg ABG HCO3 (21-25) mmol/L ABG Total CO2 (19-24) mmol/L Sodium 148 H (137-145) mmol/L Chloride 114 H (98-107) mmol/L BUN 32 H (9-20) mg/dL Creatinine 1.68 H (0.66-1.25) mg/dL Glucose 248 H (74-99) mg/dL POC Glucose (mg/dL) (70-110) mg/dL Calcium 8.2 L (8.4-10.2) mg/dL Total Bilirubin 0.1 L (0.2-1.3) mg/dL C-Reactive Protein 14.6 H (<1.0) mg/dL Total Protein 5.8 L (6.3-8.2) g/dL Albumin 2.9 L (3.5-5.0) g/dL Microbiology - Last 24 Hours (Table) 11/13/24 07:40 Blood Culture - Preliminary Blood Assessment and Plan Assessment: 1. Acute kidney injury associated with severe volume depletion hyper osmolar nonketotic diabetic state. Nonoliguric. UA is benign. No previous labs available for comparison. 2. Hypernatremia associated with free water deficit. Serum sodium was 140 on admission which was falsely low due to severe hyperglycemia. Corrected sodium was 159. Serum sodium now around 147. Maintained on D5W. Off of insulin drip 3. Hyperkalemia associated with acute severe hyperglycemia and acute kidney injury. Improved with improved blood sugar level 4. History of polysubstance abuse with drug screen positive for cocaine 5. Respiratory acidosis with CO2 retention 6. Mental status changes secondary to metabolic encephalopathy Plan: Continue D5W, adjust rate based on repeat sodium this morning. Need to avoid aggressive drop in serum sodium level.
[2024-11-17 11:11] LABS: Magnesium 2.2 mg/dL (1.6-2.3)
[2024-11-17 11:25] LABS: Glucose,Whole Blood 289 mg/dL (70-110)
--- NOTE | 2024-11-17 11:33 | P.PN ---
Subjective Progress Note Date: 11/17/24 69-year-old male patient, diabetic, presents emerged part because of altered me ntation. Immediately, the patient was noted to be hyperglycemic and had significant metabolic abnormalities consistent with hyperosmolar nonketotic state. Noted the blood sugar was measured to be at 1276. Ketones were negative. UA was showing plus for glucose. Urine drug screen was positive for cocaine. Viral 4 Plex was negative. In terms of the blood work, the patient's initial sodium level was at 140, potassium level was at 7.2, BUN was 163 with a creatinine of 4.48 with a anion gap of 21. Lactic acid was measured at 3.8 initially and is peaked at 5.8. LFTs were normal. CPK was 332. Troponins were negative. proBNP level was 215. Troponins were negative. Alcohol level was less than 10. Acetone was negative. The white cell count was at 17.6 with a hemoglobin of 17 and a platelet count of 139. Coagulation profile was within normal limits. Chest x-ray was done Emergency Department and it showed diffuse interstitial changes bilaterally, chronicity is unknown. CAT scan of the brain showed no evidence of any acute bleed or CVA it was consistent with mild chronic small vessel ischemic changes and there was no evidence of an acute CVA. CT angiogram of the brain showed COPD with moderate emphysematous changes in lung apices bilaterally. Less than 25% proximal right ICA stenosis, 70% left ICA disease and [place] vertebral arteries were small in caliber. Based on all this, the patient was started on fluid resuscitation. The patient was given normal saline, a total of 2 L and subsequently the patient was started on a bicarb infusion. Urine output is adequate for now. Subsequent blood work on this patient showed drop in the creatinine down to 3.12 with a BUN of 126. Sodium level came at 160 following the correction of the blood sugar. Most recent blood sugars down to 186 as the patient is currently on insulin drip for blood sugar control. Lactic acid level is currently at 5.0. Neurologically, the patient remains altered and confused. Unable to volunteer any history. He does mumble. He is afebrile for now. He is on room air oxygen. The cardiac rhythm is sinus. Ultrasound the kidneys was done and it showed no evidence of any hydronephrosis. On 11/14/2024, the patient is being seen for a follow-up. Seems to be much more alert and awake compared to yesterday although he remains somewhat confused. Family is at the bedside. The patient is currently on insulin drip running at 4 units an hour. The patient is also on half-normal saline running at 150 cc an hour. The patient's blood work from this morning showed a sodium level of 153 with a potassium level of 4.8, bicarb is at 18 with a BUN of 110 and a creatinine of 2.9. Noted the creatinine has been gradually improving. Potassium level is also stabilized. Sodium level is improving. The white cell count is 18.9 with a hemoglobin of 16.3. The chest x-ray shows chronic coarse interstitial infiltrates probably due to chronic ILD/fibrosis. The patient remains on empiric antibiotic coverage with IV Rocephin and Zithromax. Afebrile. Hemodynamically stable on no pressors. He has already started some soft diet. Urine drug screen is positive for cocaine. On 11/15/2024, the patient is being seen for a follow-up. The patient is confused. There could be a component of alcohol withdrawal syndrome as the patient admits to drinking 1 pint of alcohol on a daily basis. Hemodynamically stable. Continues to receive fluids and the patient remains on half-normal saline at rate of 150 cc an hour. A sitter is at the bedside. No focal neurological deficits. The blood sugar control is improved. Most recent electrolytes showed a sodium level of 152, potassium level is at 4.7, chlorides 119 and bicarb level is at 20. BUN is 56 with a creatinine of 2.03. Insulin drip was discontinued and the patient was placed on Levemir insulin 10 units in addition to his sign scale coverage. The patient is awaiting to be transferred to the intensive care unit. He was seen in the emergency department this morning. He is white cell count is 11 with a heme of 14.7 and platelet count of 69. He is currently on room air oxygen with a pulse ox of 95%. No signs of any respiratory distress. On 11/16/2024, patient is still confused. Breathing is slightly more labored and the patient is also bronchospastic and wheezy. Based on that, a blood gas was obtained and the patient was found to have a pH of 7.35 with a pCO2 of 49 and pO2 of 71. Chest x-ray showing chronic interstitial pulmonary infiltrates bilaterally, could be related to an underlying chronic fibrosis and background COPD. Meanwhile, the patient continues to be resuscitated with IV fluids. The patient has been switched to D5 water which is running at a rate of 100 cc an hour and this was a total of 250 cc an hour. The patient remains on Levemir insulin 10 units twice daily and a sliding scale coverage. He remains on 2 L of oxygen by nasal cannula. Suspect delirium tremens as the patient has a vague history of alcoholism. The patient is currently on low-dose Precedex. Neurologic exam is nonfocal. The patient has a sitter at the bedside. The white cell count of 10 with a heme of 15 and a platelet count of 72. Sodium is at 155, BUN 39 with a creatinine of 1.6. CPK 736, improving. Syphilis antibodies are negative. 11/17/2024, patient is on low-dose Precedex at 0.2 mcg/kg/min. No significant agitation. Remains encephalopathic. Obviously, clinical presentation and symptoms are consistent with delirium tremens. Hemodynamically stable. Less bronchospastic and wheezy compared to yesterday. Chest x-ray is consistent with COPD and pulmonary fibrosis. The patient is currently on D5 water running at 100 cc an hour. Electrolytes from today shows sodium level of 148, BUN 32 with a creatinine of 1.6 and a potassium level of 4. The white cell count 16 with a hemoglobin 13.3 and a platelet count of 77. Remains on Levemir insulin 10 units daily and sliding scale coverage. Objective - Vital Signs Vital signs: Vital Signs Temp 98.4 F 11/17/24 04:00 Pulse 80 11/17/24 07:00 Resp 29 H 11/17/24 07:00 BP 115/63 11/17/24 07:00 Pulse Ox 100 11/17/24 07:00 FiO2 Intake & Output 11/16/24 11/17/24 11/17/24 18:59 06:59 18:59 Intake Total 2310.773 760 108.725 Output Total 1565 811 40 Balance 745.773 -51 68.725 Weight 82.1 kg 73.2 kg Intake: IV 2295 710 100 Dextrose 5% in Water 1, 650 000 ml @ 100 mls/hr IV . Q10H ONE Rx#:[id number] Dextrose 5% in Water 1, 875 000 ml @ 150 mls/hr IV . Q6H40M ANA MARÍA Rx#:[id number] Dextrose 5% in Water 1, 50 000 ml @ 50 mls/hr IV . Q20H ANA MARÍA Rx#:[id number] Invasive Line 4 10 Magnesium Sulfate-D5w Pmx 400 1 gm In Dextrose/Water 1 100ml.bag @ 100 mls/hr IVPB Q1H ANA MARÍA Rx#: [id number] Potassium Chloride 10 meq 200 In Water For Injection 1 100ml.bag @ 100 mls/hr IVPB Q1H ANA MARÍA Rx#: [id number] Sodium Chloride 0.9% 1, 60 710 50 000 ml @ 60 mls/hr IV . [id number] ANA MARÍA Rx#:[id number] cefTRIAXone 2 gm In 100 Sodium Chloride 0.9% 50 ml @ 100 mls/hr IVPB Q24HR ANA MARÍA Rx#:[id number] Intake, IV Titration 15.773 0 8.725 Amount Dexmedetomidine/0.9% NaCl 15.773 0 8.725 (Pmx) 400 mcg In Empty Bag 1 bag @ 0.2 MCG/KG/HR 4.105 mls/hr IV .Q24H ANA MARÍA Rx#:[id number] Oral 50 Output: Urine 1565 810 40 Stool 1 Other: Voiding Method Indwelling Catheter Indwelling Catheter # Bowel Movements 0 0 - Exam The patient is confused, unable to communicate, currently on room air oxygen. No sign of any significant respiratory distress. Well resuscitated and hydrated at this point. Head exam is unremarkable. No scleral icterus or corneal arcus noted. Neck is without jugular venous distension, thyromegaly, or carotid bruits. Carotid upstrokes are brisk bilaterally. Lungs are are bronchospastic and wheezy and the patient has a prolongation of the exhalation phase of breathing. Cardiac exam reveals the PMI to be normally sized and situated. Rhythm is regular. First and second heart sounds normal. No murmurs, rubs or gallops. Abdominal exam reveals normal bowel sounds, no masses, no organomegaly and no aortic enlargement. Extremities are nonedematous and both femoral and pedal pulses are normal. Examination of the skin revealed no evidence of significant rashes, suspicious appearing nevi or other concerning lesions. Neurologically, the patient more alert and communicative compared to yesterday. Remains confused.. Overall neurologic exam is nonfocal. - Labs CBC & Chem 7: 11/17/24 03:36 11/17/24 10:00 Labs: Abnormal Lab Results - Last 24 Hours (Table) 11/16/24 11/16/24 11/16/24 Range/Units 11:09 12:01 12:58 WBC (3.8-10.6) k/uL MCHC (31.0-37.0) g/dL Plt Count (150-450) k/uL Neutrophils # (1.3-7.7) k/uL Lymphocytes # (1.0-4.8) k/uL ABG pCO2 49 H (35-45) mmHg ABG pO2 71 L (83-108) mmHg ABG HCO3 27 H (21-25) mmol/L ABG Total CO2 28 H (19-24) mmol/L Sodium 147 H (137-145) mmol/L Chloride 114 H (98-107) mmol/L BUN (9-20) mg/dL Creatinine (0.66-1.25) mg/dL Glucose (74-99) mg/dL POC Glucose (mg/dL) 238 H (70-110) mg/dL Calcium (8.4-10.2) mg/dL Total Bilirubin (0.2-1.3) mg/dL C-Reactive Protein (<1.0) mg/dL Total Protein (6.3-8.2) g/dL Albumin (3.5-5.0) g/dL Vitamin B12 (200.0-944.0) pg/mL 11/16/24 11/16/24 11/16/24 Range/Units 17:00 21:17 21:33 WBC (3.8-10.6) k/uL MCHC (31.0-37.0) g/dL Plt Count (150-450) k/uL Neutrophils # (1.3-7.7) k/uL Lymphocytes # (1.0-4.8) k/uL ABG pCO2 (35-45) mmHg ABG pO2 (83-108) mmHg ABG HCO3 (21-25) mmol/L ABG Total CO2 (19-24) mmol/L Sodium (137-145) mmol/L Chloride (98-107) mmol/L BUN (9-20) mg/dL Creatinine (0.66-1.25) mg/dL Glucose (74-99) mg/dL POC Glucose (mg/dL) 347 H 279 H (70-110) mg/dL Calcium (8.4-10.2) mg/dL Total Bilirubin (0.2-1.3) mg/dL C-Reactive Protein (<1.0) mg/dL Total Protein (6.3-8.2) g/dL Albumin (3.5-5.0) g/dL Vitamin B12 2164.0 H (200.0-944.0) pg/mL 11/17/24 11/17/24 11/17/24 Range/Units 01:02 03:36 03:36 WBC 16.3 H (3.8-10.6) k/uL MCHC 30.8 L (31.0-37.0) g/dL Plt Count 77 L (150-450) k/uL Neutrophils # 15.3 H (1.3-7.7) k/uL Lymphocytes # 0.7 L (1.0-4.8) k/uL ABG pCO2 (35-45) mmHg ABG pO2 (83-108) mmHg ABG HCO3 (21-25) mmol/L ABG Total CO2 (19-24) mmol/L Sodium 147 H 148 H (137-145) mmol/L Chloride 114 H (98-107) mmol/L BUN 32 H (9-20) mg/dL Creatinine 1.68 H (0.66-1.25) mg/dL Glucose 248 H (74-99) mg/dL POC Glucose (mg/dL) (70-110) mg/dL Calcium 8.2 L (8.4-10.2) mg/dL Total Bilirubin 0.1 L (0.2-1.3) mg/dL C-Reactive Protein 14.6 H (<1.0) mg/dL Total Protein 5.8 L (6.3-8.2) g/dL Albumin 2.9 L (3.5-5.0) g/dL Vitamin B12 (200.0-944.0) pg/mL Microbiology - Last 24 Hours (Table) 11/13/24 07:40 Blood Culture - Preliminary Blood Assessment and Plan Plan: Acute hyperglycemia with hyperosmolar nonketotic hyperglycemic state, improved, currently on Levemir insulin 10 units daily Scale coverage. Acute hypernatremia secondary dehydration, currently on D5 water at rate of 100 cc an hour. Sodium level continues to improve. Altered mentation secondary to above. This is related to metabolic encephalopathy. CT scan of the brain and CT angiogram shows no evidence of an acute stroke. Neurologically, the patient is improving although the patient remains confused. Rule out a component of alcoholic encephalopathy/delirium tremens. The patient is currently on low-dose Precedex Non-anion gap metabolic acidosis, improving Severe dehydration and intravascular volume depletion secondary to above, improving Acute kidney injury, secondary to above versus related to intravascular volume depletion. No evidence of any hydronephrosis, improving Pseudohyponatremia. The sodium level is currently elevated as the patient's blood sugars are being adjusted and corrected. Lactic acidosis with a component of mild anion gap metabolic acidosis. Acetone is negative Rhabdomyolysis, mild Acute hypokalemia secondary to above, improving History of substance abuse with a positive urine drug screen for cocaine Carotid artery stenosis COPD, currently inactive and stable Chronic ILD/fibrosis, will need a CAT scan at a later stage Chronic thrombocytopenia, likely secondary to EtOH use Alcoholism, possible delirium tremens, currently on Precedex Plan Continue IV fluids D5 water at rate of 100 cc an hour Monitor sodium level Continue Levemir insulin 10 units daily along with a sign scale coverage. Repeat electrolytes Keep the patient n.p.o. for now Continue DuoNeb nebulized treatments [id number] Blood gases were noted and the patient has a component of mild respiratory acidosis Chest x-ray was noted suggestive of chronic ILD/fibrosis [facility] protocol and monitor mental status and the patient is currently on Precedex Sitter at the bedside Antibiotic coverage essentially empiric at this point in time Heparin subcu for DVT prophylaxis Aspiration precautions Keep n.p.o. for now Will continue to follow Keep the patient in the intensive care unit. This is a critical care evaluation that was done more than 30 minutes. Time with Patient: Greater than 30
[2024-11-17 16:06] LABS: Glucose,Whole Blood 226 mg/dL (70-110)
--- NOTE | 2024-11-17 17:14 | P.PN ---
Subjective Progress Note Date: 11/17/24 (delayed charting seen at approx 0930) 69-year-old with history of diabetes, COPD, GERD, hypertension admitted with hyperosmotic syndrome, LATOYA, and hypernatremia. Patient seen and examined at bedside. He complains of back pain, alert to year and being in a hospital, deneis shrotness of breath Vital signs reviewed General: Nontoxic, no distress, appears at stated age Cardiovascular: S1S2 reg, no murmur Lungs: CTA bilateral, no rhonchi, no rales, no accessory muscle use Abdominal: Soft, nontender to palpation, no guarding Ext: No gross muscle atrophy, no edema b/l lower extremities, no contractures Neuro: CN II-XI grossly intact, poor finger to nose as difficult following comands, moving all 4 extremities independently. Psych: Alert, orientedX 3, restless Assessment/Plan: Altered mentation -Concern for possible osmotic demyelination syndrome given patient's significant glucose and electrolyte derangements at admission with rapidity of correction. May be mild consistent with motor, cognitive, behavioral type changes. Obviously not as severe as seizure, coma, or which can be associated with the use. -Neurology recommendations. Feels like likely secondary to withdrawal syndrome. -Continue Demadex Hyperosmolar hyperglycemic state, resolved DM2 -Levemir 10 units at night, sliding scale insulin -Follow blood sugars -A1c 11.4 Hyponatremia -Nephrology note reviewed -Continue D5 -Follow serum sodium levels COPD with acute exacerbation Acute hypoxic hypercapnic respiratory failure Pulmonary fibrosis -DuoNeb 4 times daily and as needed, not on steroids given hyperglycemia - Critical care recommendations Thrombocytopenia -Platelets stable -On Arixtra. If platelets stable tomorrow would consider discontinuing Arixtra with transition to Lovenox -Continue to monitor Lactic acidosis, resolved Hyperkalemia, resolved Acute kidney injury, resolving Uremia, improved Dehydration, improved Rhabdo, resolved Cocaine positive Carotid artery stenosis Imaging: None new Data Review: Labs reviewed from today include basic metabolic profile which is remarkable for sodium of 146, chloride of 114, anion gap of 12, carbon dioxide of 22, BUN 32, creatinine 1.68, sodium 226, total bilirubin 0.1, CRP 14.6 B12 elevated, CK improved to 736, TSH normal, folate normal, treponema pallidum antibody normal CBC remarkable for white blood cell count of 16.3 and platelets of 77. DVT prophylaxis: arixtra Anticipated discharge date: pending clinical course Anticipated discharge place: pending clinical course This dictation was prepared using [employer] voice recognition software. Though every attempt is made to correct errors during dictation some may still exist. Objective - Vital Signs Vital signs: Vital Signs Temp 97.6 F 11/17/24 16:00 Pulse 73 11/17/24 16:00 Resp 26 H 11/17/24 16:00 BP 96/53 11/17/24 16:00 Pulse Ox 99 11/17/24 16:00 FiO2 Intake & Output 11/16/24 11/17/24 11/17/24 18:59 06:59 18:59 Intake Total 2310.773 760 486.969 Output Total 1565 811 265 Balance 745.773 -51 221.969 Weight 82.1 kg 73.2 kg Intake: IV 2295 710 450 Dextrose 5% in Water 1, 650 000 ml @ 100 mls/hr IV . Q10H ONE Rx#:[id number] Dextrose 5% in Water 1, 875 000 ml @ 150 mls/hr IV . Q6H40M ANA MARÍA Rx#:[id number] Dextrose 5% in Water 1, 400 000 ml @ 50 mls/hr IV . Q20H ANA MARÍA Rx#:[id number] Invasive Line 4 10 Magnesium Sulfate-D5w Pmx 400 1 gm In Dextrose/Water 1 100ml.bag @ 100 mls/hr IVPB Q1H ANA MARÍA Rx#: [id number] Potassium Chloride 10 meq 200 In Water For Injection 1 100ml.bag @ 100 mls/hr IVPB Q1H ANA MARÍA Rx#: [id number] Sodium Chloride 0.9% 1, 60 710 50 000 ml @ 60 mls/hr IV . [id number] ANA MARÍA Rx#:[id number] cefTRIAXone 2 gm In 100 Sodium Chloride 0.9% 50 ml @ 100 mls/hr IVPB Q24HR ANA MARÍA Rx#:[id number] Intake, IV Titration 15.773 0 16.969 Amount Dexmedetomidine/0.9% NaCl 15.773 0 16.969 (Pmx) 400 mcg In Empty Bag 1 bag @ 0.2 MCG/KG/HR 4.105 mls/hr IV .Q24H ANA MARÍA Rx#:[id number] Oral 50 20 Output: Urine 1565 810 265 Stool 1 Other: Voiding Method Indwelling Catheter Indwelling Catheter Indwelling Catheter # Bowel Movements 0 0 0 - Labs CBC & Chem 7: 11/17/24 03:36 11/17/24 15:59 Labs: Abnormal Lab Results - Last 24 Hours (Table) 11/16/24 11/17/24 11/17/24 Range/Units 21:17 01:02 03:36 WBC (3.8-10.6) k/uL MCHC (31.0-37.0) g/dL Plt Count (150-450) k/uL Neutrophils # (1.3-7.7) k/uL Lymphocytes # (1.0-4.8) k/uL Sodium 147 H 148 H (137-145) mmol/L Chloride 114 H (98-107) mmol/L BUN 32 H (9-20) mg/dL Creatinine 1.68 H (0.66-1.25) mg/dL Glucose 248 H (74-99) mg/dL POC Glucose (mg/dL) 279 H (70-110) mg/dL Calcium 8.2 L (8.4-10.2) mg/dL Total Bilirubin 0.1 L (0.2-1.3) mg/dL C-Reactive Protein 14.6 H (<1.0) mg/dL Total Protein 5.8 L (6.3-8.2) g/dL Albumin 2.9 L (3.5-5.0) g/dL 11/17/24 11/17/24 11/17/24 Range/Units 03:36 10:00 11:23 WBC 16.3 H (3.8-10.6) k/uL MCHC 30.8 L (31.0-37.0) g/dL Plt Count 77 L (150-450) k/uL Neutrophils # 15.3 H (1.3-7.7) k/uL Lymphocytes # 0.7 L (1.0-4.8) k/uL Sodium 146 H (137-145) mmol/L Chloride (98-107) mmol/L BUN (9-20) mg/dL Creatinine (0.66-1.25) mg/dL Glucose (74-99) mg/dL POC Glucose (mg/dL) 289 H (70-110) mg/dL Calcium (8.4-10.2) mg/dL Total Bilirubin (0.2-1.3) mg/dL C-Reactive Protein (<1.0) mg/dL Total Protein (6.3-8.2) g/dL Albumin (3.5-5.0) g/dL 11/17/24 11/17/24 Range/Units 15:59 16:04 WBC (3.8-10.6) k/uL MCHC (31.0-37.0) g/dL Plt Count (150-450) k/uL Neutrophils # (1.3-7.7) k/uL Lymphocytes # (1.0-4.8) k/uL Sodium 146 H (137-145) mmol/L Chloride (98-107) mmol/L BUN (9-20) mg/dL Creatinine (0.66-1.25) mg/dL Glucose (74-99) mg/dL POC Glucose (mg/dL) 226 H (70-110) mg/dL Calcium (8.4-10.2) mg/dL Total Bilirubin (0.2-1.3) mg/dL C-Reactive Protein (<1.0) mg/dL Total Protein (6.3-8.2) g/dL Albumin (3.5-5.0) g/dL Microbiology - Last 24 Hours (Table) 11/13/24 07:40 Blood Culture - Preliminary Blood
[2024-11-17 20:06] LABS: Glucose,Whole Blood 275 mg/dL (70-110)
[2024-11-18 02:13] LABS: Glucose,Whole Blood 289 mg/dL (70-110)
[2024-11-18 06:08] LABS: Glucose,Whole Blood 237 mg/dL (70-110)
[2024-11-18 07:45] LABS: African American GFR (CKD) 58 (>60 ml/min/1.73 sqM); Anion Gap 8 mmol/L; Blood Urea Nitrogen 34 mg/dL (9-20); Calcium 7.7 mg/dL (8.4-10.2); Carbon Dioxide 24 mmol/L (22-30); Chloride 115 mmol/L (98-107); Glucose 270 mg/dL (74-99); Magnesium 1.8 mg/dL (1.6-2.3); Non-African American GFR(CKD) 50 (>60 ml/min/1.73 sqM); Potassium 4.4 mmol/L (3.5-5.1); Sodium 147 mmol/L (137-145)
[2024-11-18] MEDS: MAGNESIUM SULFATE-D5W PMX 1 GM in DEXTROSE/WATER 1 100ML.BAG IVPB ONE (08:31)
[2024-11-18 09:09] LABS: HCT 46.3 % (39.0-53.0); HGB 14.3 gm/dL (13.0-17.5); Hypochromasia Marked; MCH 29.5 pg (25.0-35.0); MCHC 30.9 g/dL (31.0-37.0); MCV 95.4 fL (80.0-100.0); Mean Platelet Volume 12.5; RBC 4.86 m/uL (4.30-5.90); RDW 14.1 % (11.5-15.5)
[2024-11-18 09:24] LABS: Platelet Count 103 k/uL (150-450)
--- NOTE | 2024-11-18 10:30 | P.PN ---
Subjective Progress Note Date: 11/16/24 Patient was seen for a follow-up. Patient has HHS. Earlier he was pulling on the lines, requiring Ativan. Patient reported to someone that he does drink although not confirmed by myself. He is on CIWA protocol. Patient has received 1 mg Ativan at 9 AM. He was pulling on the leads, was very restless. Patient was quite agitated, was started on Precedex 0.1, became very somnolent therefore it has been turned off. At present patient is asleep. With sedation holiday, he has some speech that is slurred. Objective - Vital Signs Vital signs: Vital Signs Temp 98.2 F 11/16/24 20:00 Pulse 99 11/16/24 22:00 Resp 31 H 11/16/24 22:00 BP 103/77 11/16/24 22:00 Pulse Ox 97 11/16/24 22:00 FiO2 Intake & Output 11/16/24 11/16/24 11/17/24 06:59 18:59 06:59 Intake Total 980 2310.773 290 Output Total 1405 1565 315 Balance -425 745.773 -25 Weight 82.1 kg 82.1 kg Intake: IV 980 2295 240 Dextrose 5% in Water 1, 650 000 ml @ 100 mls/hr IV . Q10H ONE Rx#:[id number] Dextrose 5% in Water 1, 875 000 ml @ 150 mls/hr IV . Q6H40M A[facility] Rx#:[id number] Dextrose 5% in Water 1, 960 000 ml @ 80 mls/hr IV . Q13H8M A[facility] with Sodium Bicarb (1 Meq/ml) 50 ml Rx#:[id number] Invasive Line 2 20 Invasive Line 4 10 Magnesium Sulfate-D5w Pmx 400 1 gm In Dextrose/Water 1 100ml.bag @ 100 mls/hr IVPB Q1H [facility] Rx#: [id number] Potassium Chloride 10 meq 200 In Water For Injection 1 100ml.bag @ 100 mls/hr IVPB Q1H [facility] Rx#: [id number] Sodium Chloride 0.9% 1, 60 240 000 ml @ 60 mls/hr IV . [id number] [facility] Rx#:[id number] cefTRIAXone 2 gm In 100 Sodium Chloride 0.9% 50 ml @ 100 mls/hr IVPB Q24HR [facility] Rx#:[id number] Intake, IV Titration 15.773 Amount Dexmedetomidine/0.9% NaCl 15.773 (Pmx) 400 mcg In Empty Bag 1 bag @ 0.2 MCG/KG/HR 4.105 mls/hr IV .Q24H A[facility] AR[facility] Rx#:[id number] Oral 50 Output: Urine 1405 1565 315 Other: Voiding Method Indwelling Catheter Indwelling Catheter Indwelling Catheter # Bowel Movements 0 0 0 - Exam Patient sedated at this time. He has just stopped receiving Precedex. He has received Ativan at 9 AM. - Labs CBC & Chem 7: 11/18/24 09:02 11/18/24 06:57 Labs: Abnormal Lab Results - Last 24 Hours (Table) 11/16/24 11/16/24 11/16/24 Range/Units 02:56 05:32 11:09 Plt Count 72 L (150-450) k/uL Neutrophils # 8.1 H (1.3-7.7) k/uL ABG pCO2 (35-45) mmHg ABG pO2 (83-108) mmHg ABG HCO3 (21-25) mmol/L ABG Total CO2 (19-24) mmol/L Sodium 155 H (137-145) mmol/L Chloride 117 H (98-107) mmol/L BUN 39 H (9-20) mg/dL Creatinine 1.69 H (0.66-1.25) mg/dL Glucose 135 H (74-99) mg/dL POC Glucose (mg/dL) 238 H (70-110) mg/dL Magnesium 1.2 L (1.6-2.3) mg/dL Creatine Kinase 736 H (55-170) U/L Vitamin B12 (200.0-944.0) pg/mL 11/16/24 11/16/24 11/16/24 Range/Units 12:01 12:58 17:00 Plt Count (150-450) k/uL Neutrophils # (1.3-7.7) k/uL ABG pCO2 49 H (35-45) mmHg ABG pO2 71 L (83-108) mmHg ABG HCO3 27 H (21-25) mmol/L ABG Total CO2 28 H (19-24) mmol/L Sodium 147 H (137-145) mmol/L Chloride 114 H (98-107) mmol/L BUN (9-20) mg/dL Creatinine (0.66-1.25) mg/dL Glucose (74-99) mg/dL POC Glucose (mg/dL) 347 H (70-110) mg/dL Magnesium (1.6-2.3) mg/dL Creatine Kinase (55-170) U/L Vitamin B12 (200.0-944.0) pg/mL 11/16/24 11/16/24 Range/Units 21:17 21:33 Plt Count (150-450) k/uL Neutrophils # (1.3-7.7) k/uL ABG pCO2 (35-45) mmHg ABG pO2 (83-108) mmHg ABG HCO3 (21-25) mmol/L ABG Total CO2 (19-24) mmol/L Sodium (137-145) mmol/L Chloride (98-107) mmol/L BUN (9-20) mg/dL Creatinine (0.66-1.25) mg/dL Glucose (74-99) mg/dL POC Glucose (mg/dL) 279 H (70-110) mg/dL Magnesium (1.6-2.3) mg/dL Creatine Kinase (55-170) U/L Vitamin B12 2164.0 H (200.0-944.0) pg/mL Microbiology - Last 24 Hours (Table) 11/13/24 07:40 Blood Culture - Preliminary Blood Assessment and Plan Assessment: * Altered mental status, likely due to metabolic encephalopathy. Limited examination is nonfocal. No definitive evidence of acute CVA. * Hyperosmolar hyperglycemic state * Type 2 diabetes, poorly controlled * Acute kidney injury * Respiratory acidosis * Lactic acidosis * Hyperkalemia, improved * Rhabdomyolysis * COPD * Substance abuse urine positive for cocaine. * Left ICA stenosis 70%, severe focal stenosis at the V3/V4 junction of right vertebral artery Plan: * Patient's examination is relatively nonfocal. CT head revealed no acute process. Minimal chronic small vessel ischemic change. * CTA of head and neck revealed segmental mild atherosclerotic narrowing through out bilateral carotid siphons. No large vessel intracranial arterial occlusion or aneurysm seen. Severe focal stenosis at the V3/V4 junction of the right vertebral artery. Mild, less than 25% proximal right ICA stenosis. Severe, 70% stenosis for a span of 1.0 to 1.5 cm involving the upper left I CA.. * Consult vascular surgery * Hemoglobin A1c 11.4. Recommend optimize control of diabetes to target A1c <7.0 * Lipid panel with cholesterol 142, LDL 68, HDL 53 and triglycerides 103. Start Lipitor 40 mg daily. * B12 2164, folate 19.3, RPR nonreactive, TSH. 1.19 * Repeat CK this morning has improved 736, trending down. Yesterday CK level 1393. * Continue aspirin 325 mg daily (started this admission). * Treatment of uncontrolled diabetes as per IM and critical care. * Recommend abstinence from substance abuse * Other medical management as per IM and other specialties on board. * Patient receiving Ativan for delirium.
[2024-11-18 11:29] LABS: Glucose,Whole Blood 241 mg/dL (70-110)
--- NOTE | 2024-11-18 11:46 | P.PN ---
Subjective Progress Note Date: 11/18/24 Pt remains obtunded, but more calm with ativan PRN and precedex gtt. Gen: In NAD, obtunded HEENT: normocephalic, atraumatic, hearing acuity is intant, mucous membranes moist CVS: perfusing all extremities well, no pitting edema, Respiratory: symmetric chest expansion, accessory muscle use is present, diffuse wheezing and diminished lung sounds GI: soft, NTTP, ND, : no suprapubic tenderness, no CVA tenderness MSK/Derm: no rashes, cyanosis Neuro: CN II-XII intact, no motor weakness, Hospital Course: Patient is a 69-year-old male with history of diabetes presenting with altered mentation. In the ED, temperature was 97.5, pulse 113, respiratory rate 20, saturating at 100% on room air, blood pressure 118/68. WBC 17.6, platelet 139, INR 1.3, pH 7.26, pCO2 64, potassium 7.2 came down to 5.6, creatinine 4.48, anion gap 21, glucose 1276, lactic acid 4.8, total calcium 11.7, CK3 32, troponin 0.027, BNP 215, ketones negative, urinalysis shows 4+ glucose, toxicology positive for cocaine, respiratory viral panel negative. Head CT did not show any acute process. Chest x-ray independently interpreted, shows interstitial opacities bilateral. Head and neck CTA showed severe focal stenosis at the V3/V4 junction of the right vertebral artery, mild right ICA stenosis, severe 70% stenosis of left ICA. Renal ultrasound did not show any hydronephrosis. Patient admitted on insulin drip for HHS. Nephrology, pulmonology consulted. Patient also given IV antibiotics and IV fluids in the ER. Neurology and vascular surgery also consulted. Blood sugars have down trended with insulin drip, mental status has been improving. Patient remains hypernatremic. Continued on hypotonic fluids. Assessment/Plan: Altered mentation -Concern for possible osmotic demyelination syndrome given patient's significant glucose and electrolyte derangements at admission with rapidity of correction. May be mild consistent with motor, cognitive, behavioral type changes. Obv iously not as severe as seizure, coma, or which can be associated with the use. -Neurology recommendations. Feels like likely secondary to withdrawal syndrome. -Continue Precedex, ativan PRN -Agree with MRI once able to tolerate, likely tomorrow Hyperosmolar hyperglycemic state, resolved DM2 -Levemir 10 units at night, sliding scale insulin -Follow blood sugars -A1c 11.4 Hypernatremia -Nephrology note reviewed -Continue D5 -Follow serum sodium levels COPD with acute exacerbation Acute hypoxic hypercapnic respiratory failure Pulmonary fibrosis -DuoNeb 4 times daily and as needed, not on steroids given hyperglycemia - Critical care recommendations Thrombocytopenia -Platelets stable, improving since d/c of heparin SQ -Remain on Arixtra. -Continue to monitor Lactic acidosis, resolved Hyperkalemia, resolved Acute kidney injury, resolving Uremia, improved Dehydration, improved Rhabdo, resolved Cocaine positive Carotid artery stenosis DVT prophylaxis: arixtra Anticipated discharge date: pending clinical course Anticipated discharge place: pending clinical course This dictation was prepared using [employer] voice recognition software. Though every attempt is made to correct errors during dictation some may still exist. Objective - Vital Signs Vital signs: Vital Signs Temp 97.7 F 11/18/24 08:00 Pulse 68 11/18/24 09:00 Resp 17 11/18/24 09:00 BP 103/72 11/18/24 09:00 Pulse Ox 100 11/18/24 09:00 FiO2 Intake & Output 11/17/24 11/18/24 11/18/24 18:59 06:59 18:59 Intake Total 610.302 0763.962 426.949 Output Total 555 949 211 Balance 397.243 80.962 215.949 Weight 82.5 kg Intake: IV 850 75 250 Dextrose 5% in Water 1, 800 75 000 ml @ 50 mls/hr IV . Q20H [facility] Rx#:[id number] Dextrose 5% in Water 1, 150 000 ml @ 75 mls/hr IV . [id number] [facility] Rx#:[id number] Magnesium Sulfate-D5w Pmx 100 1 gm In Dextrose/Water 1 100ml.bag @ 100 mls/hr IVPB ONCE ONE Rx#: [id number] Sodium Chloride 0.9% 1, 50 000 ml @ 60 mls/hr IV . [id number] A[facility] Rx#:[id number] Intake, IV Titration 82.243 954.962 171.949 Amount Dexmedetomidine/0.9% NaCl 82.243 129.962 96.949 (Pmx) 400 mcg In Empty Bag 1 bag @ 0.2 MCG/KG/HR 4.105 mls/hr IV .Q24H COUNT INCLUDES [facility] Rx#:[id number] Dextrose 5% in Water 1, 825 75 000 ml @ 75 mls/hr IV . [id number] COUNT INCLUDES THE [facility] Rx#:[id number] Oral 20 5 Output: Urine 555 949 211 Other: Voiding Method Indwelling Catheter Indwelling Catheter # Bowel Movements 0 0 - Labs CBC & Chem 7: 11/18/24 09:02 11/18/24 06:57 Labs: Abnormal Lab Results - Last 24 Hours (Table) 11/17/24 11/17/24 11/17/24 Range/Units 15:59 16:04 20:04 WBC (3.8-10.6) k/uL MCHC (31.0-37.0) g/dL Plt Count (150-450) k/uL Sodium 146 H (137-145) mmol/L Chloride (98-107) mmol/L BUN (9-20) mg/dL Creatinine (0.66-1.25) mg/dL Glucose (74-99) mg/dL POC Glucose (mg/dL) 226 H 275 H (70-110) mg/dL Calcium (8.4-10.2) mg/dL 11/18/24 11/18/24 11/18/24 Range/Units 02:04 06:06 06:57 WBC (3.8-10.6) k/uL MCHC (31.0-37.0) g/dL Plt Count (150-450) k/uL Sodium 147 H (137-145) mmol/L Chloride 115 H (98-107) mmol/L BUN 34 H (9-20) mg/dL Creatinine 1.42 H (0.66-1.25) mg/dL Glucose 270 H (74-99) mg/dL POC Glucose (mg/dL) 289 H 237 H (70-110) mg/dL Calcium 7.7 L (8.4-10.2) mg/dL 11/18/24 11/18/24 Range/Units 09:02 11:27 WBC 18.0 H (3.8-10.6) k/uL MCHC 30.9 L (31.0-37.0) g/dL Plt Count 103 L (150-450) k/uL Sodium (137-145) mmol/L Chloride (98-107) mmol/L BUN (9-20) mg/dL Creatinine (0.66-1.25) mg/dL Glucose (74-99) mg/dL POC Glucose (mg/dL) 241 H (70-110) mg/dL Calcium (8.4-10.2) mg/dL
--- NOTE | 2024-11-18 11:55 | P.PN ---
Subjective Progress Note Date: 11/18/24 69-year-old male patient, diabetic, presents emerged part because of altered me ntation. Immediately, the patient was noted to be hyperglycemic and had significant metabolic abnormalities consistent with hyperosmolar nonketotic state. Noted the blood sugar was measured to be at 1276. Ketones were negative. UA was showing plus for glucose. Urine drug screen was positive for cocaine. Viral 4 Plex was negative. In terms of the blood work, the patient's initial sodium level was at 140, potassium level was at 7.2, BUN was 163 with a creatinine of 4.48 with a anion gap of 21. Lactic acid was measured at 3.8 initially and is peaked at 5.8. LFTs were normal. CPK was 332. Troponins were negative. proBNP level was 215. Troponins were negative. Alcohol level was less than 10. Acetone was negative. The white cell count was at 17.6 with a hemoglobin of 17 and a platelet count of 139. Coagulation profile was within normal limits. Chest x-ray was done Emergency Department and it showed diffuse interstitial changes bilaterally, chronicity is unknown. CAT scan of the brain showed no evidence of any acute bleed or CVA it was consistent with mild chronic small vessel ischemic changes and there was no evidence of an acute CVA. CT angiogram of the brain showed COPD with moderate emphysematous changes in lung apices bilaterally. Less than 25% proximal right ICA stenosis, 70% left ICA disease and the [place] vertebral arteries were small in caliber. Based on all this, the patient was started on fluid resuscitation. The patient was given normal saline, a total of 2 L and subsequently the patient was started on a bicarb infusion. Urine output is adequate for now. Subsequent blood work on this patient showed drop in the creatinine down to 3.12 with a BUN of 126. Sodium level came at 160 following the correction of the blood sugar. Most recent blood sugars down to 186 as the patient is currently on insulin drip for blood sugar control. Lactic acid level is currently at 5.0. Neurologically, the patient remains altered and confused. Unable to volunteer any history. He does mumble. He is afebrile for now. He is on room air oxygen. The cardiac rhythm is sinus. Ultrasound the kidneys was done and it showed no evidence of any hydronephrosis. On 11/14/2024, the patient is being seen for a follow-up. Seems to be much more alert and awake compared to yesterday although he remains somewhat confused. Family is at the bedside. The patient is currently on insulin drip running at 4 units an hour. The patient is also on half-normal saline running at 150 cc an hour. The patient's blood work from this morning showed a sodium level of 153 with a potassium level of 4.8, bicarb is at 18 with a BUN of 110 and a creatinine of 2.9. Noted the creatinine has been gradually improving. Potassium level is also stabilized. Sodium level is improving. The white cell count is 18.9 with a hemoglobin of 16.3. The chest x-ray shows chronic coarse interstitial infiltrates probably due to chronic ILD/fibrosis. The patient remains on empiric antibiotic coverage with IV Rocephin and Zithromax. Afebrile. Hemodynamically stable on no pressors. He has already started some soft diet. Urine drug screen is positive for cocaine. On 11/15/2024, the patient is being seen for a follow-up. The patient is confused. There could be a component of alcohol withdrawal syndrome as the patient admits to drinking 1 pint of alcohol on a daily basis. Hemodynamically stable. Continues to receive fluids and the patient remains on half-normal saline at rate of 150 cc an hour. A sitter is at the bedside. No focal neurological deficits. The blood sugar control is improved. Most recent electrolytes showed a sodium level of 152, potassium level is at 4.7, chlorides 119 and bicarb level is at 20. BUN is 56 with a creatinine of 2.03. Insulin drip was discontinued and the patient was placed on Levemir insulin 10 units in addition to his sign scale coverage. The patient is awaiting to be transferred to the intensive care unit. He was seen in the emergency department this morning. He is white cell count is 11 with a heme of 14.7 and platelet count of 69. He is currently on room air oxygen with a pulse ox of 95%. No signs of any respiratory distress. On 11/16/2024, patient is still confused. Breathing is slightly more labored and the patient is also bronchospastic and wheezy. Based on that, a blood gas was obtained and the patient was found to have a pH of 7.35 with a pCO2 of 49 and pO2 of 71. Chest x-ray showing chronic interstitial pulmonary infiltrates bilaterally, could be related to an underlying chronic fibrosis and background COPD. Meanwhile, the patient continues to be resuscitated with IV fluids. The patient has been switched to D5 water which is running at a rate of 100 cc an hour and this was a total of 250 cc an hour. The patient remains on Levemir insulin 10 units twice daily and a sliding scale coverage. He remains on 2 L of oxygen by nasal cannula. Suspect delirium tremens as the patient has a vague history of alcoholism. The patient is currently on low-dose Precedex. Neurologic exam is nonfocal. The patient has a sitter at the bedside. The white cell count of 10 with a heme of 15 and a platelet count of 72. Sodium is at 155, BUN 39 with a creatinine of 1.6. CPK 736, improving. Syphilis antibodies are negative. 11/17/2024, patient is on low-dose Precedex at 0.2 mcg/kg/min. No significant agitation. Remains encephalopathic. Obviously, clinical presentation and symptoms are consistent with delirium tremens. Hemodynamically stable. Less bronchospastic and wheezy compared to yesterday. Chest x-ray is consistent with COPD and pulmonary fibrosis. The patient is currently on D5 water running at 100 cc an hour. Electrolytes from today shows sodium level of 148, BUN 32 with a creatinine of 1.6 and a potassium level of 4. The white cell count 16 with a hemoglobin 13.3 and a platelet count of 77. Remains on Levemir insulin 10 units daily and sliding scale coverage. On 11/18/2023, the patient remains delirious, still on Precedex running at 1.2 mcg/kg/h. Occasional agitation. Sitter at the bedside. Neurologic exam remains nonfocal. Afebrile. Hemodynamically stable. Remains on 2 L of oxygen by nasal cannula. Remains NPO. Sodium levels at 147 and the patient is c urrently on D5 water running at 75 cc an hour. The patient is also on Levemir insulin 10 units once a day. Chloride is 115. BUN 34 with a creatinine of 1.42. Blood sugar this morning is at 270. White cell count is 18 with a hemoglobin of 14.3. No other significant events overnight. No respiratory distress. Objective - Vital Signs Vital signs: Vital Signs Temp 97.7 F 11/18/24 08:00 Pulse 68 11/18/24 09:00 Resp 17 11/18/24 09:00 BP 103/72 11/18/24 09:00 Pulse Ox 100 11/18/24 09:00 FiO2 Intake & Output 11/17/24 11/18/24 11/18/24 18:59 06:59 18:59 Intake Total 623.648 1322.962 426.949 Output Total 555 949 211 Balance 397.243 80.962 215.949 Weight 82.5 kg Intake: IV 850 75 250 Dextrose 5% in Water 1, 800 75 000 ml @ 50 mls/hr IV . Q20H [facility] Rx#:[id number] Dextrose 5% in Water 1, 150 000 ml @ 75 mls/hr IV . [id number] [facility] Rx#:[id number] Magnesium Sulfate-D5w Pmx 100 1 gm In Dextrose/Water 1 100ml.bag @ 100 mls/hr IVPB ONCE ONE Rx#: [id number] Sodium Chloride 0.9% 1, 50 000 ml @ 60 mls/hr IV . [id number] [facility] Rx#:[id number] Intake, IV Titration 82.243 954.962 171.949 Amount Dexmedetomidine/0.9% NaCl 82.243 129.962 96.949 (Pmx) 400 mcg In Empty Bag 1 bag @ 0.2 MCG/KG/HR 4.105 mls/hr IV .Q24H [facility] Rx#:[id number] Dextrose 5% in Water 1, 825 75 000 ml @ 75 mls/hr IV . [id number] [facility] Rx#:[id number] Oral 20 5 Output: Urine 555 949 211 Other: Voiding Method Indwelling Catheter Indwelling Catheter # Bowel Movements 0 0 - Exam The patient is confused, unable to communicate, currently on room air oxygen. No sign of any significant respiratory distress. Well resuscitated and hydrated at this point. Head exam is unremarkable. No scleral icterus or corneal arcus noted. Neck is without jugular venous distension, thyromegaly, or carotid bruits. Carotid upstrokes are brisk bilaterally. Lungs are are bronchospastic and wheezy and the patient has a prolongation of the exhalation phase of breathing. Cardiac exam reveals the PMI to be normally sized and situated. Rhythm is regular. First and second heart sounds normal. No murmurs, rubs or gallops. Abdominal exam reveals normal bowel sounds, no masses, no organomegaly and no aortic enlargement. Extremities are nonedematous and both femoral and pedal pulses are normal. Examination of the skin revealed no evidence of significant rashes, suspicious appearing nevi or other concerning lesions. Neurologically, the patient more alert and communicative compared to yesterday. Remains confused.. Overall neurologic exam is nonfocal. - Labs CBC & Chem 7: 11/18/24 09:02 11/18/24 06:57 Labs: Abnormal Lab Results - Last 24 Hours (Table) 11/17/24 11/17/24 11/17/24 Range/Units 15:59 16:04 20:04 WBC (3.8-10.6) k/uL MCHC (31.0-37.0) g/dL Plt Count (150-450) k/uL Sodium 146 H (137-145) mmol/L Chloride (98-107) mmol/L BUN (9-20) mg/dL Creatinine (0.66-1.25) mg/dL Glucose (74-99) mg/dL POC Glucose (mg/dL) 226 H 275 H (70-110) mg/dL Calcium (8.4-10.2) mg/dL 11/18/24 11/18/24 11/18/24 Range/Units 02:04 06:06 06:57 WBC (3.8-10.6) k/uL MCHC (31.0-37.0) g/dL Plt Count (150-450) k/uL Sodium 147 H (137-145) mmol/L Chloride 115 H (98-107) mmol/L BUN 34 H (9-20) mg/dL Creatinine 1.42 H (0.66-1.25) mg/dL Glucose 270 H (74-99) mg/dL POC Glucose (mg/dL) 289 H 237 H (70-110) mg/dL Calcium 7.7 L (8.4-10.2) mg/dL 11/18/24 11/18/24 Range/Units 09:02 11:27 WBC 18.0 H (3.8-10.6) k/uL MCHC 30.9 L (31.0-37.0) g/dL Plt Count 103 L (150-450) k/uL Sodium (137-145) mmol/L Chloride (98-107) mmol/L BUN (9-20) mg/dL Creatinine (0.66-1.25) mg/dL Glucose (74-99) mg/dL POC Glucose (mg/dL) 241 H (70-110) mg/dL Calcium (8.4-10.2) mg/dL Assessment and Plan Plan: Acute hyperglycemia with hyperosmolar nonketotic hyperglycemic state, improved, currently on Levemir insulin 10 units units twice daily and a sliding scale Acute hypernatremia secondary dehydration, currently on D5 water at rate of 75 cc an hour. Sodium level continues to improve. Altered mentation secondary to above. This is related to metabolic encephalopathy. CT scan of the brain and CT angiogram shows no evidence of an acute stroke. Neurologically, the patient is improving although the patient remains confused. Rule out a component of alcoholic encephalopathy/delirium tremens. The patient is currently on low-dose Precedex Non-anion gap metabolic acidosis, improving Severe dehydration and intravascular volume depletion secondary to above, improving Acute kidney injury, secondary to above versus related to intravascular volume depletion. No evidence of any hydronephrosis, improving Pseudohyponatremia. The sodium level is currently elevated as the patient's blood sugars are being adjusted and corrected. Lactic acidosis with a component of mild anion gap metabolic acidosis. Acetone is negative Rhabdomyolysis, mild Acute hypokalemia secondary to above, improving History of substance abuse with a positive urine drug screen for cocaine Carotid artery stenosis COPD, currently inactive and stable Chronic ILD/fibrosis, will need a CAT scan at a later stage Chronic thrombocytopenia, likely secondary to EtOH use Alcoholism, possible delirium tremens, currently on Precedex Plan Continue Precedex for agitation and delirium Continue IV fluids D5 water at rate of 75 cc an hour Monitor sodium level Continue Levemir insulin 10 units twice daily along with a sliding scale coverage. Monitor blood sugar and electrolytes Keep the patient n.p.o. for now Continue DuoNeb nebulized treatments [id number] Blood gases were noted and the patient has a component of mild respiratory acidosis Chest x-ray was noted suggestive of chronic ILD/fibrosis [facility] protocol and monitor mental status and the patient is currently on Precedex Sitter at the bedside Heparin subcu for DVT prophylaxis Aspiration precautions Keep n.p.o. for now Will continue to follow Keep the patient in the intensive care unit. This is a critical care evaluation that was done more than 30 minutes. Time with Patient: Greater than 30
--- NOTE | 2024-11-18 11:59 | P.PN ---
Subjective Patient is seen for follow-up for hyperkalemia and hyperosmolar nonketotic state. Mentation had improved yesterday per last night patient was again confused and agitated and is currently in restraints with a bedside sitter. Serum sodium 147 today. Serum creatinine down to 1.42 Objective - Vital Signs Vital signs: Vital Signs Temp 97.7 F 11/18/24 08:00 Pulse 68 11/18/24 09:00 Resp 17 11/18/24 09:00 BP 103/72 11/18/24 09:00 Pulse Ox 100 11/18/24 09:00 FiO2 Intake & Output 11/17/24 11/18/24 11/18/24 18:59 06:59 18:59 Intake Total 607.994 6096.962 426.949 Output Total 555 949 211 Balance 397.243 80.962 215.949 Weight 82.5 kg Intake: IV 850 75 250 Dextrose 5% in Water 1, 800 75 000 ml @ 50 mls/hr IV . Q20H [facility] Rx#:[id number] Dextrose 5% in Water 1, 150 000 ml @ 75 mls/hr IV . [id number] [facility] Rx#:[id number] Magnesium Sulfate-D5w Pmx 100 1 gm In Dextrose/Water 1 100ml.bag @ 100 mls/hr IVPB ONCE ONE Rx#: [id number] Sodium Chloride 0.9% 1, 50 000 ml @ 60 mls/hr IV . [id number] [facility] Rx#:[id number] Intake, IV Titration 82.243 954.962 171.949 Amount Dexmedetomidine/0.9% NaCl 82.243 129.962 96.949 (Pmx) 400 mcg In Empty Bag 1 bag @ 0.2 MCG/KG/HR 4.105 mls/hr IV .Q24H [facility] Rx#:[id number] Dextrose 5% in Water 1, 825 75 000 ml @ 75 mls/hr IV . [id number] [facility] Rx#:[id number] Oral 20 5 Output: Urine 555 949 211 Other: Voiding Method Indwelling Catheter Indwelling Catheter # Bowel Movements 0 0 - Exam Patient is sleeping, he is sedated Examination of the heart S1 and S2 Examination of the lungs bilateral breath sounds are heard Abdomen is soft nontender Examination lower extremity shows no significant edema Patient is able to move all 4 extremities. - Labs CBC & Chem 7: 11/18/24 09:02 11/18/24 06:57 Labs: Abnormal Lab Results - Last 24 Hours (Table) 11/17/24 11/17/24 11/17/24 Range/Units 15:59 16:04 20:04 WBC (3.8-10.6) k/uL MCHC (31.0-37.0) g/dL Plt Count (150-450) k/uL Sodium 146 H (137-145) mmol/L Chloride (98-107) mmol/L BUN (9-20) mg/dL Creatinine (0.66-1.25) mg/dL Glucose (74-99) mg/dL POC Glucose (mg/dL) 226 H 275 H (70-110) mg/dL Calcium (8.4-10.2) mg/dL 11/18/24 11/18/24 11/18/24 Range/Units 02:04 06:06 06:57 WBC (3.8-10.6) k/uL MCHC (31.0-37.0) g/dL Plt Count (150-450) k/uL Sodium 147 H (137-145) mmol/L Chloride 115 H (98-107) mmol/L BUN 34 H (9-20) mg/dL Creatinine 1.42 H (0.66-1.25) mg/dL Glucose 270 H (74-99) mg/dL POC Glucose (mg/dL) 289 H 237 H (70-110) mg/dL Calcium 7.7 L (8.4-10.2) mg/dL 11/18/24 11/18/24 Range/Units 09:02 11:27 WBC 18.0 H (3.8-10.6) k/uL MCHC 30.9 L (31.0-37.0) g/dL Plt Count 103 L (150-450) k/uL Sodium (137-145) mmol/L Chloride (98-107) mmol/L BUN (9-20) mg/dL Creatinine (0.66-1.25) mg/dL Glucose (74-99) mg/dL POC Glucose (mg/dL) 241 H (70-110) mg/dL Calcium (8.4-10.2) mg/dL Assessment and Plan Assessment: 1. Acute kidney injury associated with severe volume depletion hyper osmolar nonketotic diabetic state. Nonoliguric. UA is benign. No previous labs available for comparison. 2. Hypernatremia associated with free water deficit. Serum sodium was 140 on admission which was falsely low due to severe hyperglycemia. Corrected sodium was 159. Serum sodium now around 147. Maintained on D5W. Off of insulin drip 3. Hyperkalemia associated with acute severe hyperglycemia and acute kidney injury. Improved with improved blood sugar level 4. History of polysubstance abuse with drug screen positive for cocaine 5. Respiratory acidosis with CO2 retention 6. Mental status changes secondary to metabolic encephalopathy Plan: Increase D5W to 100 cc an hour Repeat sodium at 6 PM
[2024-11-18 16:06] LABS: Glucose,Whole Blood 240 mg/dL (70-110)
[2024-11-18] MEDS: ATORVASTATIN 40 MG TAB PO SCH (20:03)
[2024-11-18 20:20] LABS: Glucose,Whole Blood 221 mg/dL (70-110)
[2024-11-18] MEDS: INSULIN DETEMIR (LEVEMIR) 100 UNIT/ML SYR SQ SCH (21:16)
[2024-11-19 01:48] LABS: Glucose,Whole Blood 189 mg/dL (70-110)
[2024-11-19 06:05] LABS: Basophils % (A) 0 %; Eosinophils # (A) 0.2 k/uL (0-0.7); Eosinophils % (A) 2 %; HCT 43.7 % (39.0-53.0); HGB 13.7 gm/dL (13.0-17.5); Hypochromasia Slight; Lymphocytes # (A) 1.6 k/uL (1.0-4.8); Lymphocytes % (A) 12 %; MCH 29.5 pg (25.0-35.0); MCHC 31.5 g/dL (31.0-37.0); MCV 93.8 fL (80.0-100.0); Mean Platelet Volume 13.1; Monocytes # (A) 0.8 k/uL (0-1.0); Monocytes % (A) 6 %; Neutrophils # (A) 10.7 k/uL (1.3-7.7); Neutrophils % (A) 79 %; Platelet Count 101 k/uL (150-450); RBC 4.66 m/uL (4.30-5.90); RDW 14.3 % (11.5-15.5); WBC 13.5 k/uL (3.8-10.6)
[2024-11-19 06:07] LABS: African American GFR (CKD) 62 (>60 ml/min/1.73 sqM); Anion Gap 3 mmol/L; Blood Urea Nitrogen 25 mg/dL (9-20); Calcium 7.3 mg/dL (8.4-10.2); Carbon Dioxide 26 mmol/L (22-30); Chloride 114 mmol/L (98-107); Glucose 121 mg/dL (74-99); Magnesium 1.5 mg/dL (1.6-2.3); Non-African American GFR(CKD) 54 (>60 ml/min/1.73 sqM); Potassium 3.6 mmol/L (3.5-5.1); Sodium 143 mmol/L (137-145)
[2024-11-19 06:16] LABS: Glucose,Whole Blood 122 mg/dL (70-110)
[2024-11-19] MEDS: POTASSIUM CHLORIDE 10 MEQ in WATER FOR INJECTION 1 100ML.BAG IVPB SCH ×2 (07:10→18:44)
[2024-11-19] MEDS: MAGNESIUM SULFATE-D5W PMX 1 GM in DEXTROSE/WATER 1 100ML.BAG IVPB SCH (07:10)
[2024-11-19 07:37] LABS: Large Platelets Present; Tear Drop Cells Present
[2024-11-19 08:21] LABS: Glucose,Whole Blood 166 mg/dL (70-110)
--- NOTE | 2024-11-19 09:00 | P.PN ---
Subjective Patient is seen in follow-up for acute kidney injury and hypernatremia. Renal function better. Sodium level 143. Currently on D5W. Vital signs are stable. General: No acute distress. HEENT: Head exam is unremarkable. On nasal cannula. LUNGS: No audible rhonchi or wheezes. HEART: Rate and Rhythm are regular. ABDOMEN: Nontender. EXTREMITITES: No edema. Objective - Vital Signs Vital signs: Vital Signs Temp 97.8 F 11/19/24 04:00 Pulse 72 11/19/24 07:00 Resp 11 L 11/19/24 07:00 BP 99/55 11/19/24 07:00 Pulse Ox 94 L 11/19/24 06:00 FiO2 Intake & Output 11/18/24 11/19/24 11/19/24 18:59 06:59 18:59 Intake Total 9182.034 8591.057 31.848 Output Total 696 610 Balance 996.038 928.057 31.848 Weight 82.8 kg Intake: IV 1250 1200 Dextrose 5% in Water 1, 1150 1200 000 ml @ 100 mls/hr IV . Q10H [facility] Rx#:[id number] Magnesium Sulfate-D5w Pmx 100 1 gm In Dextrose/Water 1 100ml.bag @ 100 mls/hr IVPB ONCE ONE Rx#: [id number] Intake, IV Titration 437.038 338.057 31.848 Amount Dexmedetomidine/0.9% NaCl 362.038 338.057 31.848 (Pmx) 400 mcg In Empty Bag 1 bag @ 0.2 MCG/KG/HR 4.105 mls/hr IV .Q24H [facility] Rx#:[id number] Dextrose 5% in Water 1, 75 000 ml @ 100 mls/hr IV . Q10H [facility] Rx#:[id number] Oral 5 Output: Urine 696 610 Other: Voiding Method Indwelling Catheter Indwelling Catheter # Bowel Movements 0 - Labs CBC & Chem 7: 11/19/24 05:27 11/19/24 05:27 Labs: Abnormal Lab Results - Last 24 Hours (Table) 11/18/24 11/18/24 11/18/24 Range/Units 09:02 11:27 16:05 WBC 18.0 H (3.8-10.6) k/uL MCHC 30.9 L (31.0-37.0) g/dL Plt Count 103 L (150-450) k/uL Neutrophils # (1.3-7.7) k/uL Chloride (98-107) mmol/L BUN (9-20) mg/dL Creatinine (0.66-1.25) mg/dL Glucose (74-99) mg/dL POC Glucose (mg/dL) 241 H 240 H (70-110) mg/dL Calcium (8.4-10.2) mg/dL Magnesium (1.6-2.3) mg/dL 11/18/24 11/19/24 11/19/24 Range/Units 20:19 01:46 05:27 WBC 13.5 H (3.8-10.6) k/uL MCHC (31.0-37.0) g/dL Plt Count 101 L (150-450) k/uL Neutrophils # 10.7 H (1.3-7.7) k/uL Chloride (98-107) mmol/L BUN (9-20) mg/dL Creatinine (0.66-1.25) mg/dL Glucose (74-99) mg/dL POC Glucose (mg/dL) 221 H 189 H (70-110) mg/dL Calcium (8.4-10.2) mg/dL Magnesium (1.6-2.3) mg/dL 11/19/24 11/19/24 11/19/24 Range/Units 05:27 06:15 08:20 WBC (3.8-10.6) k/uL MCHC (31.0-37.0) g/dL Plt Count (150-450) k/uL Neutrophils # (1.3-7.7) k/uL Chloride 114 H (98-107) mmol/L BUN 25 H (9-20) mg/dL Creatinine 1.34 H (0.66-1.25) mg/dL Glucose 121 H (74-99) mg/dL POC Glucose (mg/dL) 122 H 166 H (70-110) mg/dL Calcium 7.3 L (8.4-10.2) mg/dL Magnesium 1.5 L (1.6-2.3) mg/dL Microbiology - Last 24 Hours (Table) 11/13/24 07:40 Blood Culture - Final Blood Assessment and Plan Plan: Assessment: 1. Acute kidney injury secondary to ATN secondary to hyperosmolar nonketotic state. Creatinine 4.48 on admission and is 1.34 today. Unknown baseline renal function. No hydronephrosis noted on kidney ultrasound. UA benign. 2. Hypernatremia from lack of oral water intake. Improved with D5W. 3. Polysubstance drug abuse. 4. Metabolic encephalopathy. 5. Hyperkalemia on admission secondary to hyperglycemia. Resolved. 6. Hypomagnesemia from poor intake. Replaced. Plan: Decrease rate of D5W to 75 cc an hour. Repeat sodium level this evening. Avoid nephrotoxins. Potassium and magnesium replaced. Continue to monitor renal function and urine output
--- NOTE | 2024-11-19 10:47 | XR ---
EXAMINATION TYPE: XR chest 1V portable DATE OF EXAM: 11/19/2024 10:19 AM COMPARISON: Chest radiographs from 11/16/2023 CLINICAL INDICATION: Male, 69 years old with history of ng tube placement; [facility] TECHNIQUE: XR chest 1V portable Frontal view of the chest. FINDINGS: Lungs/Pleura: Similar multifocal airspace opacities. No evidence of pneumothorax or pleural effusion. Pulmonary vascularity: Unremarkable. Heart/mediastinum: Cardiomediastinal silhouette is unremarkable. Musculoskeletal: No acute osseous pathology. Other findings: None Lines/Tubes: Nasogastric tube with its distal tip and side-port projecting under the diaphragm. IMPRESSION: Nasogastric tube in satisfactory position. Cardiomegaly with interstitial prominence as seen on prior. [facility], , 11/19/2024 10:45 AM
[2024-11-19 11:10] LABS: Glucose,Whole Blood 169 mg/dL (70-110)
--- NOTE | 2024-11-19 12:07 | P.PN ---
Subjective Progress Note Date: 11/19/24 Pt remains on ativan PRN and precedex gtt. Gen: In NAD, obtunded HEENT: normocephalic, atraumatic, hearing acuity is intant, mucous membranes moist CVS: perfusing all extremities well, no pitting edema, Respiratory: symmetric chest expansion, accessory muscle use is present, diffuse wheezing and diminished lung sounds GI: soft, NTTP, ND, : no suprapubic tenderness, no CVA tenderness MSK/Derm: no rashes, cyanosis Neuro: CN II-XII intact, no motor weakness, Hospital Course: Patient is a 69-year-old male with history of diabetes presenting with altered mentation. In the ED, temperature was 97.5, pulse 113, respiratory rate 20, saturating at 100% on room air, blood pressure 118/68. WBC 17.6, platelet 139, INR 1.3, pH 7.26, pCO2 64, potassium 7.2 came down to 5.6, creatinine 4.48, anion gap 21, glucose 1276, lactic acid 4.8, total calcium 11.7, CK3 32, troponin 0.027, BNP 215, ketones negative, urinalysis shows 4+ glucose, toxicology positive for cocaine, respiratory viral panel negative. Head CT did not show any acute process. Chest x-ray independently interpreted, shows interstitial opacities bilateral. Head and neck CTA showed severe focal stenosis at the V3/V4 junction of the right vertebral artery, mild right ICA stenosis, severe 70% stenosis of left ICA. Renal ultrasound did not show any hydronephrosis. Patient admitted on insulin drip for HHS. Nephrology, pulmonol ogy consulted. Patient also given IV antibiotics and IV fluids in the ER. Neurology and vascular surgery also consulted. Blood sugars have down trended with insulin drip, mental status has been improving. Patient remains hypernatremic. Continued on hypotonic fluids. Assessment/Plan: Altered mentation -Concern for possible osmotic demyelination syndrome given patient's significant glucose and electrolyte derangements at admission with rapidity of correction. May be mild consistent with motor, cognitive, behavioral type changes. Obviously not as severe as seizure, coma, or which can be associated with the use. -Neurology recommendations. Feels like likely secondary to withdrawal syndrome. -Continue Precedex, ativan PRN -Agree with MRI once able to tolerate Hyperosmolar hyperglycemic state, resolved DM2 -Levemir 10 units at night, sliding scale insulin -Follow blood sugars -A1c 11.4 Hypernatremia -Nephrology note reviewed -Continue D5 -Follow serum sodium levels COPD with acute exacerbation Acute hypoxic hypercapnic respiratory failure Pulmonary fibrosis -DuoNeb 4 times daily and as needed, not on steroids given hyperglycemia - Critical care recommendations Thrombocytopenia -Platelets stable, improving since d/c of heparin SQ -4T score for INNA is 3, low probability -Remain on Arixtra. -Continue to monitor Lactic acidosis, resolved Hyperkalemia, resolved Acute kidney injury, resolving Uremia, improved Dehydration, improved Rhabdo, resolved Cocaine positive Carotid artery stenosis DVT prophylaxis: arixtra Anticipated discharge date: pending clinical course Anticipated discharge place: pending clinical course This dictation was prepared using [employer] voice recognition software. Though every attempt is made to correct errors during dictation some may still exist. Objective - Vital Signs Vital signs: Vital Signs Temp 97.4 F L 11/19/24 08:00 Pulse 67 11/19/24 11:00 Resp 23 11/19/24 11:00 BP 99/65 11/19/24 11:00 Pulse Ox 96 11/19/24 11:00 FiO2 Intake & Output 11/18/24 11/19/24 11/19/24 18:59 06:59 18:59 Intake Total 0472.457 4727.057 722.242 Output Total 696 610 175 Balance 996.038 928.057 547.242 Weight 82.8 kg Intake: IV 1250 1200 675 Dextrose 5% in Water 1, 1150 1200 175 000 ml @ 75 mls/hr IV . [id number] [facility] Rx#:[id number] Magnesium Sulfate-D5w Pmx 100 1 gm In Dextrose/Water 1 100ml.bag @ 100 mls/hr IVPB ONCE ONE Rx#: [id number] Magnesium Sulfate-D5w Pmx 200 1 gm In Dextrose/Water 1 100ml.bag @ 100 mls/hr IVPB Q1H [facility] Rx#: [id number] Potassium Chloride 10 meq 300 In Water For Injection 1 100ml.bag @ 100 mls/hr IVPB Q1HR [facility] Rx#: [id number] Intake, IV Titration 437.038 338.057 47.242 Amount Dexmedetomidine/0.9% NaCl 362.038 338.057 47.242 (Pmx) 400 mcg In Empty Bag 1 bag @ 0.2 MCG/KG/HR 4.105 mls/hr IV .Q24H [facility] Rx#:[id number] Dextrose 5% in Water 1, 75 000 ml @ 75 mls/hr IV . [id number] [facility] Rx#:[id number] Oral 5 Output: Urine 696 610 175 Other: Voiding Method Indwelling Catheter Indwelling Catheter Indwelling Catheter # Bowel Movements 0 0 - Labs CBC & Chem 7: 11/19/24 05:27 11/19/24 05:27 Labs: Abnormal Lab Results - Last 24 Hours (Table) 11/18/24 11/18/24 11/19/24 Range/Units 16:05 20:19 01:46 WBC (3.8-10.6) k/uL Plt Count (150-450) k/uL Neutrophils # (1.3-7.7) k/uL Chloride (98-107) mmol/L BUN (9-20) mg/dL Creatinine (0.66-1.25) mg/dL Glucose (74-99) mg/dL POC Glucose (mg/dL) 240 H 221 H 189 H (70-110) mg/dL Calcium (8.4-10.2) mg/dL Magnesium (1.6-2.3) mg/dL 11/19/24 11/19/24 11/19/24 Range/Units 05:27 05:27 06:15 WBC 13.5 H (3.8-10.6) k/uL Plt Count 101 L (150-450) k/uL Neutrophils # 10.7 H (1.3-7.7) k/uL Chloride 114 H (98-107) mmol/L BUN 25 H (9-20) mg/dL Creatinine 1.34 H (0.66-1.25) mg/dL Glucose 121 H (74-99) mg/dL POC Glucose (mg/dL) 122 H (70-110) mg/dL Calcium 7.3 L (8.4-10.2) mg/dL Magnesium 1.5 L (1.6-2.3) mg/dL 11/19/24 11/19/24 Range/Units 08:20 11:08 WBC (3.8-10.6) k/uL Plt Count (150-450) k/uL Neutrophils # (1.3-7.7) k/uL Chloride (98-107) mmol/L BUN (9-20) mg/dL Creatinine (0.66-1.25) mg/dL Glucose (74-99) mg/dL POC Glucose (mg/dL) 166 H 169 H (70-110) mg/dL Calcium (8.4-10.2) mg/dL Magnesium (1.6-2.3) mg/dL Microbiology - Last 24 Hours (Table) 11/13/24 07:40 Blood Culture - Final Blood
--- NOTE | 2024-11-19 12:51 | P.PN ---
Subjective Progress Note Date: 11/19/24 Principal diagnosis: D acute hyperglycemia with hyperosmolar nonketotic state 69-year-old male patient, diabetic, presents emerged part because of altered mentation. Immediately, the patient was noted to be hyperglycemic and had significant metabolic abnormalities consistent with hyperosmolar nonketotic state. Noted the blood sugar was measured to be at 1276. Ketones were negative. UA was showing plus for glucose. Urine drug screen was positive for cocaine. Viral 4 Plex was negative. In terms of the blood work, the patient's initial sodium level was at 140, potassium level was at 7.2, BUN was 163 with a creatinine of 4.48 with a anion gap of 21. Lactic acid was measured at 3.8 initially and is peaked at 5.8. LFTs were normal. CPK was 332. Troponins were negative. proBNP level was 215. Troponins were negative. Alcohol level was less than 10. Acetone was negative. The white cell count was at 17.6 with a hemoglobin of 17 and a platelet count of 139. Coagulation profile was within normal limits. Chest x-ray was done Emergency Department and it showed diffuse interstitial changes bilaterally, chronicity is unknown. CAT scan of the brain showed no evidence of any acute bleed or CVA it was consistent with mild chronic small vessel ischemic changes and there was no evidence of an acute CVA. CT angiogram of the brain showed COPD with moderate emphysematous changes in lung apices bilaterally. Less than 25% proximal right ICA stenosis, 70% left ICA disease and the [place] vertebral arteries were small in caliber. Based on all this, the patient was started on fluid resuscitation. The patient was given normal saline, a total of 2 L and subsequently the patient was started on a bicarb infusion. Urine output is adequate for now. Subsequent blood work on this patient showed drop in the creatinine down to 3.12 with a BUN of 126. Sodium level came at 160 following the correction of the blood sugar. Most recent blood sugars down to 186 as the patient is currently on insulin drip for blood sugar control. Lactic acid level is currently at 5.0. Neurologically, the patient remains altered and confused. Unable to volunteer any history. He does mumble. He is afebrile for now. He is on room air oxygen. The cardiac rhythm is sinus. Ultrasound the kidneys was done and it showed no evidence of any hydronephrosis. On 11/14/2024, the patient is being seen for a follow-up. Seems to be much more alert and awake compared to yesterday although he remains somewhat confused. Family is at the bedside. The patient is currently on insulin drip running at 4 units an hour. The patient is also on half-normal saline running at 150 cc an hour. The patient's blood work from this morning showed a sodium level of 153 with a potassium level of 4.8, bicarb is at 18 with a BUN of 110 and a creatinine of 2.9. Noted the creatinine has been gradually improving. Potassium level is also stabilized. Sodium level is improving. The white cell count is 18.9 with a hemoglobin of 16.3. The chest x-ray shows chronic coarse interstitial infiltrates probably due to chronic ILD/fibrosis. The patient remains on empiric antibiotic coverage with IV Rocephin and Zithromax. Afebrile. Hemodynamically stable on no pressors. He has already started some soft diet. Urine drug screen is positive for cocaine. On 11/15/2024, the patient is being seen for a follow-up. The patient is confused. There could be a component of alcohol withdrawal syndrome as the patient admits to drinking 1 pint of alcohol on a daily basis. Hemodynamically stable. Continues to receive fluids and the patient remains on half-normal saline at rate of 150 cc an hour. A sitter is at the bedside. No focal neurological deficits. The blood sugar control is improved. Most recent electrolytes showed a sodium level of 152, potassium level is at 4.7, chlorides 119 and bicarb level is at 20. BUN is 56 with a creatinine of 2.03. Insulin drip was discontinued and the patient was placed on Levemir insulin 10 units in addition to his sign scale coverage. The patient is awaiting to be transferred to the intensive care unit. He was seen in the emergency department this morning. He is white cell count is 11 with a heme of 14.7 and platelet count of 69. He is currently on room air oxygen with a pulse ox of 95%. No signs of any respiratory distress. On 11/16/2024, patient is still confused. Breathing is slightly more labored and the patient is also bronchospastic and wheezy. Based on that, a blood gas was obtained and the patient was found to have a pH of 7.35 with a pCO2 of 49 and pO2 of 71. Chest x-ray showing chronic interstitial pulmonary infiltrates bilaterally, could be related to an underlying chronic fibrosis and background COPD. Meanwhile, the patient continues to be resuscitated with IV fluids. The patient has been switched to D5 water which is running at a rate of 100 cc an hour and this was a total of 250 cc an hour. The patient remains on Levemir insulin 10 units twice daily and a sliding scale coverage. He remains on 2 L of oxygen by nasal cannula. Suspect delirium tremens as the patient has a vague history of alcoholism. The patient is currently on low-dose Precedex. Neurologic exam is nonfocal. The patient has a sitter at the bedside. The white cell count of 10 with a heme of 15 and a platelet count of 72. Sodium is at 155, BUN 39 with a creatinine of 1.6. CPK 736, improving. Syphilis antibodies are negative. 11/17/2024, patient is on low-dose Precedex at 0.2 mcg/kg/min. No significant agitation. Remains encephalopathic. Obviously, clinical presentation and symptoms are consistent with delirium tremens. Hemodynamically stable. Less bronchospastic and wheezy compared to yesterday. Chest x-ray is consistent with COPD and pulmonary fibrosis. The patient is currently on D5 water running at 100 cc an hour. Electrolytes from today shows sodium level of 148, BUN 32 with a creatinine of 1.6 and a potassium level of 4. The white cell count 16 with a hemoglobin 13.3 and a platelet count of 77. Remains on Levemir insulin 10 units daily and sliding scale coverage. On 11/18/2023, the patient remains delirious, still on Precedex running at 1.2 mcg/kg/h. Occasional agitation. Sitter at the bedside. Neurologic exam remains nonfocal. Afebrile. Hemodynamically stable. Remains on 2 L of oxygen by nasal cannula. Remains NPO. Sodium levels at 147 and the patient is currently on D5 water running at 75 cc an hour. The patient is also on Levemir insulin 10 units once a day. Chloride is 115. BUN 34 with a creatinine of 1.42. Blood sugar this morning is at 270. White cell count is 18 with a hemoglobin of 14.3. No other significant events overnight. No respiratory distress. Patient was seen today on 11/19/2024, patient remains on Precedex at 0.9 mcg/kg/h requiring intermittent Ativan for agitation, patient is on 2 L nasal cannula D5W at 75 cc/h patient has been doing fairly well except for intermittent agitations, patient is known to have history of alcohol abuse, polysubstance abuse including cocaine presented with hyperglycemic/hyperosmolar state, nonketotic, patient is responding well to treatment. 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 [id number] ANA MARÍA Rx#:[id number] Magnesium Sulfate-D5w Pmx 100 1 gm In Dextrose/Water 1 100ml.bag @ 100 mls/hr IVPB ONCE ONE Rx#: [id number] Magnesium Sulfate-D5w Pmx 200 1 gm In Dextrose/Water 1 100ml.bag @ 100 mls/hr IVPB Q1H ANA MARÍA Rx#: [id number] Potassium Chloride 10 meq 400 In Water For Injection 1 100ml.bag @ 100 mls/hr IVPB Q1HR ANA MARÍA Rx#: [id number] Intake, IV Titration 437.038 338.057 47.242 Amount Dexmedetomidine/0.9% NaCl 362.038 338.057 47.242 (Pmx) 400 mcg In Empty Bag 1 bag @ 0.2 MCG/KG/HR 4.105 mls/hr IV .Q24H ANA MARÍA Rx#:[id number] Dextrose 5% in Water 1, 75 000 ml @ 75 mls/hr IV . [id number] [facility] Rx#:[id number] Oral 5 Tube Feeding 10 Other 30 Output: Urine 696 610 255 Other: Voiding Method Indwelling Catheter Indwelling Catheter Indwelling Catheter # Bowel Movements 0 0 - Exam General: Revealed 69-year-old -[place] male in no distress on 2 L nasal cannula Head: Atraumatic normocephalic EENT: PERRLA, EOMI, nonicteric no neck masses no JVD Cardiovascular: Distant S1-S2, no S3 gallop, no murmur Lungs: Clear bilaterally no rhonchi no wheezes no crackles Abdominal: Soft nontender no rebound no guarding no tenderness. Ext: No clubbing edema or cyanosis Neuro: Difficult to assess, patient is lethargic, he is on Precedex, sedated, intermittently receiving Ativan. Psych: Could not assess because of sedation - Labs CBC & Chem 7: 11/19/24 05:27 11/19/24 05:27 Labs: Abnormal Lab Results - Last 24 Hours (Table) 11/18/24 11/18/24 11/19/24 Range/Units 16:05 20:19 01:46 WBC (3.8-10.6) k/uL Plt Count (150-450) k/uL Neutrophils # (1.3-7.7) k/uL Chloride (98-107) mmol/L BUN (9-20) mg/dL Creatinine (0.66-1.25) mg/dL Glucose (74-99) mg/dL POC Glucose (mg/dL) 240 H 221 H 189 H (70-110) mg/dL Calcium (8.4-10.2) mg/dL Magnesium (1.6-2.3) mg/dL 11/19/24 11/19/24 11/19/24 Range/Units 05:27 05:27 06:15 WBC 13.5 H (3.8-10.6) k/uL Plt Count 101 L (150-450) k/uL Neutrophils # 10.7 H (1.3-7.7) k/uL Chloride 114 H (98-107) mmol/L BUN 25 H (9-20) mg/dL Creatinine 1.34 H (0.66-1.25) mg/dL Glucose 121 H (74-99) mg/dL POC Glucose (mg/dL) 122 H (70-110) mg/dL Calcium 7.3 L (8.4-10.2) mg/dL Magnesium 1.5 L (1.6-2.3) mg/dL 11/19/24 11/19/24 Range/Units 08:20 11:08 WBC (3.8-10.6) k/uL Plt Count (150-450) k/uL Neutrophils # (1.3-7.7) k/uL Chloride (98-107) mmol/L BUN (9-20) mg/dL Creatinine (0.66-1.25) mg/dL Glucose (74-99) mg/dL POC Glucose (mg/dL) 166 H 169 H (70-110) mg/dL Calcium (8.4-10.2) mg/dL Magnesium (1.6-2.3) mg/dL Microbiology - Last 24 Hours (Table) 11/13/24 07:40 Blood Culture - Final Blood Assessment and Plan Assessment: Impression: Acute hyperglycemia with hyperosmolar nonketotic state, resolved Acute hyponatremia secondary to above Acute metabolic encephalopathy Severe dehydration upon presentation secondary to above None anion gap metabolic acidosis, resolved Acute kidney injury secondary to hypovolemia and intravascular depletion Lactic acidosis with mild anion gap metabolic acidosis, ketones negative Mild rhabdomyolysis Electrolytes imbalance secondary to above History of substance abuse/cocaine positive on drug screen History of carotid artery stenosis History of underlying COPD History of chronic mild interstitial lung disease may eventually require CT of the chest on outpatient basis Chronic thrombocytopenia secondary to alcoholism and alcohol use Acute delirium secondary to alcohol withdrawal requiring Precedex Recommendation: Continue to monitor in ICU Continue Precedex Continue insulin Levemir and NovoLog insulin/sliding scale Placed nasogastric tube for enteral support feeding/nutritional support Continue CIWA protocol Continue DVT prophylaxis Continue GI prophylaxis Continue aspiration precautions Patient remains critically ill, and I will keep him in the ICU for now. Will continue to follow Critical care time is over 30 minutes Time with Patient: Greater than 30
[2024-11-19 13:37] LABS: Magnesium 1.8 mg/dL (1.6-2.3); Potassium 3.8 mmol/L (3.5-5.1)
[2024-11-19] MEDS: POTASSIUM BICARBONATE/CIT AC 20 MEQ TABLET.EFF NG-TUBE SCH (14:55)
[2024-11-19] MEDS: MAGNESIUM SULFATE-D5W PMX 1 GM in DEXTROSE/WATER 1 100ML.BAG IVPB ONE ×2 (14:55→18:44)
[2024-11-19 16:02] LABS: Glucose,Whole Blood 141 mg/dL (70-110)
[2024-11-19 17:34] LABS: Magnesium 1.9 mg/dL (1.6-2.3); Potassium 3.7 mmol/L (3.5-5.1)
[2024-11-19 20:02] LABS: Glucose,Whole Blood 162 mg/dL (70-110)
[2024-11-20 02:32] LABS: Glucose,Whole Blood 161 mg/dL (70-110)
[2024-11-20 06:40] LABS: Glucose,Whole Blood 224 mg/dL (70-110)
[2024-11-20 08:39] LABS: Basophils # (A) 0.1 k/uL (0-0.2); Basophils % (A) 0 %; Eosinophils # (A) 0.3 k/uL (0-0.7); Eosinophils % (A) 1 %; HCT 44.2 % (39.0-53.0); HGB 14.2 gm/dL (13.0-17.5); Lymphocytes # (A) 1.9 k/uL (1.0-4.8); Lymphocytes % (A) 10 %; MCH 29.6 pg (25.0-35.0); MCV 92.5 fL (80.0-100.0); Mean Platelet Volume 11.3; Monocytes # (A) 0.8 k/uL (0-1.0); Monocytes % (A) 4 %; Neutrophils % (A) 83 %; Platelet Count 129 k/uL (150-450); RBC 4.78 m/uL (4.30-5.90); RDW 14.3 % (11.5-15.5); WBC 19.3 k/uL (3.8-10.6)
[2024-11-20 08:48] LABS: Glucose,Whole Blood 207 mg/dL (70-110)
[2024-11-20] MEDS: ASPIRIN 81 MG PO SCH (10:25)
[2024-11-20] MEDS: QUEtiapine 50 MG TAB PO SCH (10:26)
--- NOTE | 2024-11-20 10:41 | P.PN ---
Subjective Patient is seen in follow-up for acute kidney injury and hypernatremia. Now receiving tube feeds. Poor historian. On D5W. Vital signs are stable. General: No acute distress. HEENT: Head exam is unremarkable. On nasal cannula. LUNGS: No audible rhonchi or wheezes. HEART: Rate and Rhythm are regular. ABDOMEN: Nontender. EXTREMITITES: No edema. Objective - Vital Signs Vital signs: Vital Signs Temp 99.1 F 11/20/24 08:00 Pulse 101 H 11/20/24 10:00 Resp 31 H 11/20/24 10:00 BP 146/86 11/20/24 10:00 Pulse Ox 97 11/20/24 08:00 FiO2 Intake & Output 11/19/24 11/20/24 11/20/24 18:59 06:59 18:59 Intake Total 5111.481 8443.682 336.233 Output Total 234 952 3116 Balance 1320.782 424.682 -738.767 Weight 82.8 kg Intake: IV 1450 825 225 Dextrose 5% in Water 1, 850 825 225 000 ml @ 75 mls/hr IV . [id number] ANA MARÍA Rx#:[id number] Magnesium Sulfate-D5w Pmx 200 1 gm In Dextrose/Water 1 100ml.bag @ 100 mls/hr IVPB Q1H ANA MARÍA Rx#: [id number] Potassium Chloride 10 meq 400 In Water For Injection 1 100ml.bag @ 100 mls/hr IVPB Q1HR ANA MARÍA Rx#: [id number] Intake, IV Titration 178.782 253.682 31.233 Amount Dexmedetomidine/0.9% NaCl 178.782 153.682 31.233 (Pmx) 400 mcg In Empty Bag 1 bag @ 0.2 MCG/KG/HR 4.105 mls/hr IV .Q24H ANA MARÍA Rx#:[id number] Potassium Chloride 10 meq 100 In Water For Injection 1 100ml.bag @ 100 mls/hr IVPB Q1H ANA MARÍA Rx#: [id number] Tube Feeding 162 251 80 Other 60 90 Output: Urine 530 995 375 Stool 700 Other: Voiding Method Indwelling Catheter Indwelling Catheter # Bowel Movements 0 1 - Labs CBC & Chem 7: 11/20/24 08:14 11/19/24 17:00 Labs: Abnormal Lab Results - Last 24 Hours (Table) 11/19/24 11/19/24 11/19/24 Range/Units 11:08 16:01 20:01 WBC (3.8-10.6) k/uL Plt Count (150-450) k/uL Neutrophils # (1.3-7.7) k/uL POC Glucose (mg/dL) 169 H 141 H 162 H (70-110) mg/dL 11/20/24 11/20/24 11/20/24 Range/Units 02:30 06:38 08:14 WBC 19.3 H (3.8-10.6) k/uL Plt Count 129 L (150-450) k/uL Neutrophils # 16.0 H (1.3-7.7) k/uL POC Glucose (mg/dL) 161 H 224 H (70-110) mg/dL 11/20/24 Range/Units 08:47 WBC (3.8-10.6) k/uL Plt Count (150-450) k/uL Neutrophils # (1.3-7.7) k/uL POC Glucose (mg/dL) 207 H (70-110) mg/dL Assessment and Plan Plan: Assessment: 1. Acute kidney injury secondary to ATN secondary to hyperosmolar nonketotic state. Creatinine 4.48 on admission and improved to 1.34 yesterday. Unknown baseline renal function. No hydronephrosis noted on kidney ultrasound. UA benign. 2. Hypernatremia from lack of oral water intake. Improved with D5W. 3. Polysubstance drug abuse. 4. Metabolic encephalopathy. 5. Hyperkalemia on admission secondary to hyperglycemia. Resolved. 6. Hypomagnesemia from poor intake. Replaced. Plan: Stop D5W. Will add free water flushes with tube feeds if sodium level higher today. Avoid nephrotoxins. Replace electrolytes as needed. Continue to monitor renal function and urine output
[2024-11-20 11:21] LABS: African American GFR (CKD) 66 (>60 ml/min/1.73 sqM); Anion Gap 9 mmol/L; Blood Urea Nitrogen 18 mg/dL (9-20); Calcium 7.5 mg/dL (8.4-10.2); Carbon Dioxide 23 mmol/L (22-30); Chloride 107 mmol/L (98-107); Glucose 176 mg/dL (74-99); Magnesium 1.6 mg/dL (1.6-2.3); Non-African American GFR(CKD) 57 (>60 ml/min/1.73 sqM); Potassium 3.2 mmol/L (3.5-5.1); Sodium 139 mmol/L (137-145)
[2024-11-20 12:08] LABS: Glucose,Whole Blood 170 mg/dL (70-110)
--- NOTE | 2024-11-20 12:20 | P.PN ---
Subjective Progress Note Date: 11/20/24 Principal diagnosis: acute hyperglycemia with hyperosmolar nonketotic state 69-year-old male patient, diabetic, presents emerged part because of altered mentation. Immediately, the patient was noted to be hyperglycemic and had significant metabolic abnormalities consistent with hyperosmolar nonketotic state. Noted the blood sugar was measured to be at 1276. Ketones were ne gative. UA was showing plus for glucose. Urine drug screen was positive for cocaine. Viral 4 Plex was negative. In terms of the blood work, the patient's initial sodium level was at 140, potassium level was at 7.2, BUN was 163 with a creatinine of 4.48 with a anion gap of 21. Lactic acid was measured at 3.8 initially and is peaked at 5.8. LFTs were normal. CPK was 332. Troponins were negative. proBNP level was 215. Troponins were negative. Alcohol level was less than 10. Acetone was negative. The white cell count was at 17.6 with a hemoglobin of 17 and a platelet count of 139. Coagulation profile was within normal limits. Chest x-ray was done Emergency Department and it showed diffuse interstitial changes bilaterally, chronicity is unknown. CAT scan of the brain showed no evidence of any acute bleed or CVA it was consistent with mild chronic small vessel ischemic changes and there was no evidence of an acute CVA. CT angiogram of the brain showed COPD with moderate emphysematous changes in lung apices bilaterally. Less than 25% proximal right ICA stenosis, 70% left ICA disease and the zuni vertebral arteries were small in caliber. Based on all this, the patient was started on fluid resuscitation. The patient was given normal saline, a total of 2 L and subsequently the patient was started on a bicarb infusion. Urine output is adequate for now. Subsequent blood work on this patient showed drop in the creatinine down to 3.12 with a BUN of 126. Sodium level came at 160 following the correction of the blood sugar. Most recent blood sugars down to 186 as the patient is currently on insulin drip for blood sugar control. Lactic acid level is currently at 5.0. Neurologically, the patient remains altered and confused. Unable to volunteer any history. He does mumble. He is afebrile for now. He is on room air oxygen. The cardiac rhythm is sinus. Ultrasound the kidneys was done and it showed no evidence of any hydronephrosis. On 11/14/2024, the patient is being seen for a follow-up. Seems to be much more alert and awake compared to yesterday although he remains somewhat confused. Family is at the bedside. The patient is currently on insulin drip running at 4 units an hour. The patient is also on half-normal saline running at 150 cc an hour. The patient's blood work from this morning showed a sodium level of 153 with a potassium level of 4.8, bicarb is at 18 with a BUN of 110 and a creatinine of 2.9. Noted the creatinine has been gradually improving. Potassium level is also stabilized. Sodium level is improving. The white cell count is 18.9 with a hemoglobin of 16.3. The chest x-ray shows chronic coarse interstitial infiltrates probably due to chronic ILD/fibrosis. The patient remains on empiric antibiotic coverage with IV Rocephin and Zithromax. Afebrile. Hemodynamically stable on no pressors. He has already started some soft diet. Urine drug screen is positive for cocaine. On 11/15/2024, the patient is being seen for a follow-up. The patient is confused. There could be a component of alcohol withdrawal syndrome as the patient admits to drinking 1 pint of alcohol on a daily basis. Hemodynamically stable. Continues to receive fluids and the patient remains on half-normal saline at rate of 150 cc an hour. A sitter is at the bedside. No focal neurological deficits. The blood sugar control is improved. Most recent electrolytes showed a sodium level of 152, potassium level is at 4.7, chlorides 119 and bicarb level is at 20. BUN is 56 with a creatinine of 2.03. Insulin drip was discontinued and the patient was placed on Levemir insulin 10 units in addition to his sign scale coverage. The patient is awaiting to be transferred to the intensive care unit. He was seen in the emergency department this morning. He is white cell count is 11 with a heme of 14.7 and platelet count of 69. He is currently on room air oxygen with a pulse ox of 95%. No signs of any respiratory distress. On 11/16/2024, patient is still confused. Breathing is slightly more labored and the patient is also bronchospastic and wheezy. Based on that, a blood gas was obtained and the patient was found to have a pH of 7.35 with a pCO2 of 49 and pO2 of 71. Chest x-ray showing chronic interstitial pulmonary infiltrates bilaterally, could be related to an underlying chronic fibrosis and background COPD. Meanwhile, the patient continues to be resuscitated with IV fluids. The patient has been switched to D5 water which is running at a rate of 100 cc an hour and this was a total of 250 cc an hour. The patient remains on Levemir insulin 10 units twice daily and a sliding scale coverage. He remains on 2 L of oxygen by nasal cannula. Suspect delirium tremens as the patient has a vague history of alcoholism. The patient is currently on low-dose Precedex. Neurologic exam is nonfocal. The patient has a sitter at the bedside. The white cell count of 10 with a heme of 15 and a platelet count of 72. Sodium is at 155, BUN 39 with a creatinine of 1.6. CPK 736, improving. Syphilis antibodies are negative. 11/17/2024, patient is on low-dose Precedex at 0.2 mcg/kg/min. No significant agitation. Remains encephalopathic. Obviously, clinical presentation and symptoms are consistent with delirium tremens. Hemodynamically stable. Less bronchospastic and wheezy compared to yesterday. Chest x-ray is consistent with COPD and pulmonary fibrosis. The patient is currently on D5 water running at 100 cc an hour. Electrolytes from today shows sodium level of 148, BUN 32 with a creatinine of 1.6 and a potassium level of 4. The white cell count 16 with a hemoglobin 13.3 and a platelet count of 77. Remains on Levemir insulin 10 units daily and sliding scale coverage. On 11/18/2023, the patient remains delirious, still on Precedex running at 1.2 mcg/kg/h. Occasional agitation. Sitter at the bedside. Neurologic exam remains nonfocal. Afebrile. Hemodynamically stable. Remains on 2 L of oxygen by nasal cannula. Remains NPO. Sodium levels at 147 and the patient is currently on D5 water running at 75 cc an hour. The patient is also on Levemir insulin 10 units once a day. Chloride is 115. BUN 34 with a creatinine of 1.42. Blood sugar this morning is at 270. White cell count is 18 with a hemoglobin of 14.3. No other significant events overnight. No respiratory distress. Patient was seen today on 11/19/2024, patient remains on Precedex at 0.9 mcg/kg/h requiring intermittent Ativan for agitation, patient is on 2 L nasal cannula D5W at 75 cc/h patient has been doing fairly well except for intermittent agitations, patient is known to have history of alcohol abuse, polysubstance abuse including cocaine presented with hyperglycemic/hyperosmolar state, nonketotic, patient is responding well to treatment. Sodium today is 143, labs were all reviewed, patient is still not ready to be sent and he may aspirate, hence I recommended a nasogastric tube placement today for enteral feeding.WBC count is 13.5 hemoglobin 13.7 electrolytes are normal BUN is 25 creatinine 1.34 Patient was seen today on 11/20/2024 patient remains in the ICU, on 2 L nasal cannula, still requiring low-dose of Precedex at 0.3 mcg/kg/h on D5W at 75 cc/h he is also receiving vital HP via nasogastric tube 30 mL/h Seroquel was added today at 50 mg twice daily via nasogastric tube, patient continues to have intermittent episodes of agitations and restlessness, hence Seroquel was added and will continue to taper the Precedex. Patient is also receiving Ativan intermittently for agitation. CBC showed leukocytosis with WBC count of 19.3 hemoglobin is normal electrolytes showed low potassium of 3.2 bicarb is normal BUN is 18 creatinine 1.27, steadily improving since the patient came in with initial creatinine of 4.48 mentally the patient remains lethargic and confused mumbles few words, unable to understand Objective - Vital Signs Vital signs: Vital Signs Temp 99.1 F 11/20/24 08:00 Pulse 101 H 11/20/24 10:00 Resp 31 H 11/20/24 10:00 BP 146/86 11/20/24 10:00 Pulse Ox 97 11/20/24 08:00 FiO2 Intake & Output 11/19/24 11/20/24 11/20/24 18:59 06:59 18:59 Intake Total 2298.187 6534.682 336.233 Output Total 579 955 6160 Balance 1320.782 424.682 -738.767 Weight 82.8 kg Intake: IV 1450 825 225 Dextrose 5% in Water 1, 850 825 225 000 ml @ 75 mls/hr IV . [id number] [facility] Rx#:[id number] Magnesium Sulfate-D5w Pmx 200 1 gm In Dextrose/Water 1 100ml.bag @ 100 mls/hr IVPB Q1H [facility] Rx#: [id number] Potassium Chloride 10 meq 400 In Water For Injection 1 100ml.bag @ 100 mls/hr IVPB Q1HR [facility] Rx#: [id number] Intake, IV Titration 178.782 253.682 31.233 Amount Dexmedetomidine/0.9% NaCl 178.782 153.682 31.233 (Pmx) 400 mcg In Empty Bag 1 bag @ 0.2 MCG/KG/HR 4.105 mls/hr IV .Q24H [facility] Rx#:[id number] Potassium Chloride 10 meq 100 In Water For Injection 1 100ml.bag @ 100 mls/hr IVPB Q1H [facility] Rx#: [id number] Tube Feeding 162 251 80 Other 60 90 Output: Urine 530 995 375 Stool 700 Other: Voiding Method Indwelling Catheter Indwelling Catheter # Bowel Movements 0 1 - Exam General: Revealed 69-year-old -[place] male in no distress on 2 L nasal cannula Head: Atraumatic normocephalic EENT: PERRLA, EOMI, nonicteric no neck masses no JVD Cardiovascular: Distant S1-S2, no S3 gallop, no murmur Lungs: Clear bilaterally no rhonchi no wheezes no crackles Abdominal: Soft nontender no rebound no guarding no tenderness. Ext: No clubbing edema or cyanosis Neuro: Remains lethargic, he is on Precedex, sedated, intermittently receiving Ativan. Psych: Could not assess because of sedation - Labs CBC & Chem 7: 11/20/24 08:14 11/20/24 10:30 Labs: Abnormal Lab Results - Last 24 Hours (Table) 11/19/24 11/19/24 11/20/24 Range/Units 16:01 20:01 02:30 WBC (3.8-10.6) k/uL Plt Count (150-450) k/uL Neutrophils # (1.3-7.7) k/uL Potassium (3.5-5.1) mmol/L Creatinine (0.66-1.25) mg/dL Glucose (74-99) mg/dL POC Glucose (mg/dL) 141 H 162 H 161 H (70-110) mg/dL Calcium (8.4-10.2) mg/dL 11/20/24 11/20/24 11/20/24 Range/Units 06:38 08:14 08:47 WBC 19.3 H (3.8-10.6) k/uL Plt Count 129 L (150-450) k/uL Neutrophils # 16.0 H (1.3-7.7) k/uL Potassium (3.5-5.1) mmol/L Creatinine (0.66-1.25) mg/dL Glucose (74-99) mg/dL POC Glucose (mg/dL) 224 H 207 H (70-110) mg/dL Calcium (8.4-10.2) mg/dL 11/20/24 11/20/24 Range/Units 10:30 12:06 WBC (3.8-10.6) k/uL Plt Count (150-450) k/uL Neutrophils # (1.3-7.7) k/uL Potassium 3.2 L (3.5-5.1) mmol/L Creatinine 1.27 H (0.66-1.25) mg/dL Glucose 176 H (74-99) mg/dL POC Glucose (mg/dL) 170 H (70-110) mg/dL Calcium 7.5 L (8.4-10.2) mg/dL Assessment and Plan Assessment: Impression: Acute hyperglycemia with hyperosmolar nonketotic state, resolved Acute hyponatremia secondary to above Acute metabolic encephalopathy Severe dehydration upon presentation secondary to above None anion gap metabolic acidosis, resolved Acute kidney injury secondary to hypovolemia and intravascular depletion Lactic acidosis with mild anion gap metabolic acidosis, ketones negative Mild rhabdomyolysis Electrolytes imbalance secondary to above History of substance abuse/cocaine positive on drug screen History of carotid artery stenosis History of underlying COPD History of chronic mild interstitial lung disease may eventually require CT of the chest on outpatient basis Chronic thrombocytopenia secondary to alcoholism and alcohol use Acute delirium secondary to alcohol withdrawal requiring Precedex Recommendation: Continue to monitor in ICU Continue Precedex however titrate and possibly discontinue sometime later today Continue insulin Levemir and NovoLog insulin/sliding scale Add Seroquel to be given via nasogastric tube at 50 mg twice daily Continue CIWA protocol Continue DVT prophylaxis Continue GI prophylaxis Aspiration precautions patient cannot swallow as he is lethargic and nasogastric tube was placed yesterday. Patient remains relatively ill and still requiring Precedex Will continue to follow Critical care time is over 30 minutes Time with Patient: Greater than 30
[2024-11-20] MEDS: MAGNESIUM SULFATE-D5W PMX 1 GM in DEXTROSE/WATER 1 100ML.BAG IVPB SCH (12:56)
[2024-11-20] MEDS: POTASSIUM CHLORIDE ER 20 MEQ TAB.ER PO STA (12:57)
[2024-11-20] MEDS: POTASSIUM BICARBONATE/CIT AC 20 MEQ TABLET.EFF PO ONE (13:12)
--- NOTE | 2024-11-20 14:25 | P.PN ---
Subjective Progress Note Date: 11/20/24 Pt remains on ativan PRN and precedex gtt. Gen: In NAD, obtunded HEENT: normocephalic, atraumatic, hearing acuity is intant, mucous membranes moist CVS: perfusing all extremities well, no pitting edema, Respiratory: symmetric chest expansion, accessory muscle use is present, diffuse wheezing and diminished lung sounds GI: soft, NTTP, ND, : no suprapubic tenderness, no CVA tenderness MSK/Derm: no rashes, cyanosis Neuro: CN II-XII intact, no motor weakness, Hospital Course: Patient is a 69-year-old male with history of diabetes presenting with altered mentation. In the ED, temperature was 97.5, pulse 113, respiratory rate 20, saturating at 100% on room air, blood pressure 118/68. WBC 17.6, platelet 139, INR 1.3, pH 7.26, pCO2 64, potassium 7.2 came down to 5.6, creatinine 4.48, anion gap 21, glucose 1276, lactic acid 4.8, total calcium 11.7, CK3 32, troponin 0.027, BNP 215, ketones negative, urinalysis shows 4+ glucose, toxicology positive for cocaine, respiratory viral panel negative. Head CT did not show any acute process. Chest x-ray independently interpreted, shows interstitial opacities bilateral. Head and neck CTA showed severe focal stenosis at the V3/V4 junction of the right vertebral artery, mild right ICA stenosis, severe 70% stenosis of left ICA. Renal ultrasound did not show any hydronephrosis. Patient admitted on insulin drip for HHS. Nephrology, pulmonol ogy consulted. Patient also given IV antibiotics and IV fluids in the ER. Neurology and vascular surgery also consulted. Blood sugars have down trended with insulin drip, mental status has been improving. Patient remains hypernatremic. Continued on hypotonic fluids. Placed on Precedex drip and Ativan as needed for suspected withdrawal symptoms from alcohol, however, asthma demyelinization syndrome is still on the differential and MRI is pending. Neurology, pulmonology following. Assessment/Plan: Altered mentation -Concern for possible osmotic demyelination syndrome given patient's significant glucose and electrolyte derangements at admission with rapidity of correction. May be mild consistent with motor, cognitive, behavioral type changes. Obviously not as severe as seizure, coma, or which can be associated with the use. -Neurology recommendations. Feels like likely secondary to withdrawal syndrome. -Continue Precedex, ativan PRN -Agree with MRI once able to tolerate Hyperosmolar hyperglycemic state, resolved DM2 -Levemir 10 units at night, sliding scale insulin -Follow blood sugars -A1c 11.4 Hypernatremia -Nephrology note reviewed -Continue D5 -Follow serum sodium levels COPD with acute exacerbation Acute hypoxic hypercapnic respiratory failure Pulmonary fibrosis -DuoNeb 4 times daily and as needed, not on steroids given hyperglycemia - Critical care recommendations Thrombocytopenia -Platelets stable, improving since d/c of heparin SQ -4T score for INNA is 3, low probability -Remain on Arixtra. -Continue to monitor Lactic acidosis, resolved Hyperkalemia, resolved Acute kidney injury, resolving Uremia, improved Dehydration, improved Rhabdo, resolved Cocaine positive Carotid artery stenosis DVT prophylaxis: arixtra Anticipated discharge date: pending clinical course Anticipated discharge place: pending clinical course This dictation was prepared using [employer] voice recognition software. Though every attempt is made to correct errors during dictation some may still exist. Objective - Vital Signs Vital signs: Vital Signs Temp 100.8 F H 11/20/24 12:00 Pulse 110 H 11/20/24 12:00 Resp 29 H 11/20/24 12:00 BP 156/84 11/20/24 12:00 Pulse Ox 94 L 11/20/24 12:00 FiO2 Intake & Output 11/19/24 11/20/24 11/20/24 18:59 06:59 18:59 Intake Total 7339.011 4752.682 603.739 Output Total 688 551 5624 Balance 1320.782 424.682 -851.261 Weight 82.8 kg Intake: IV 1450 825 225 Dextrose 5% in Water 1, 850 825 225 000 ml @ 75 mls/hr IV . [id number] [facility] Rx#:[id number] Magnesium Sulfate-D5w Pmx 200 1 gm In Dextrose/Water 1 100ml.bag @ 100 mls/hr IVPB Q1H [facility] Rx#: [id number] Potassium Chloride 10 meq 400 In Water For Injection 1 100ml.bag @ 100 mls/hr IVPB Q1HR [facility] Rx#: [id number] Intake, IV Titration 178.782 253.682 58.739 Amount Dexmedetomidine/0.9% NaCl 178.782 153.682 58.739 (Pmx) 400 mcg In Empty Bag 1 bag @ 0.2 MCG/KG/HR 4.105 mls/hr IV .Q24H [facility] Rx#:[id number] Potassium Chloride 10 meq 100 In Water For Injection 1 100ml.bag @ 100 mls/hr IVPB Q1H [facility] Rx#: [id number] Tube Feeding 162 251 260 Other 60 90 60 Output: Urine 530 995 555 Stool 900 Other: Voiding Method Indwelling Catheter Indwelling Catheter # Bowel Movements 0 1 - Labs CBC & Chem 7: 11/20/24 08:14 11/20/24 10:30 Labs: Abnormal Lab Results - Last 24 Hours (Table) 11/19/24 11/19/24 11/20/24 Range/Units 16:01 20:01 02:30 WBC (3.8-10.6) k/uL Plt Count (150-450) k/uL Neutrophils # (1.3-7.7) k/uL Potassium (3.5-5.1) mmol/L Creatinine (0.66-1.25) mg/dL Glucose (74-99) mg/dL POC Glucose (mg/dL) 141 H 162 H 161 H (70-110) mg/dL Calcium (8.4-10.2) mg/dL 11/20/24 11/20/24 11/20/24 Range/Units 06:38 08:14 08:47 WBC 19.3 H (3.8-10.6) k/uL Plt Count 129 L (150-450) k/uL Neutrophils # 16.0 H (1.3-7.7) k/uL Potassium (3.5-5.1) mmol/L Creatinine (0.66-1.25) mg/dL Glucose (74-99) mg/dL POC Glucose (mg/dL) 224 H 207 H (70-110) mg/dL Calcium (8.4-10.2) mg/dL 11/20/24 11/20/24 Range/Units 10:30 12:06 WBC (3.8-10.6) k/uL Plt Count (150-450) k/uL Neutrophils # (1.3-7.7) k/uL Potassium 3.2 L (3.5-5.1) mmol/L Creatinine 1.27 H (0.66-1.25) mg/dL Glucose 176 H (74-99) mg/dL POC Glucose (mg/dL) 170 H (70-110) mg/dL Calcium 7.5 L (8.4-10.2) mg/dL
[2024-11-20] MEDS: VANCOMYCIN 125 MG CAPSULE PO SCH (16:31)
[2024-11-20 16:58] LABS: Glucose,Whole Blood 183 mg/dL (70-110)
[2024-11-20] MEDS: POTASSIUM BICARBONATE/CIT AC 20 MEQ TABLET.EFF NG-TUBE SCH (18:11)
[2024-11-20] MEDS: VANCOMYCIN ORAL SOLUTION 250 MG/5 ML BOTTLE NG-TUBE SCH (19:03)
[2024-11-20 20:48] LABS: Glucose,Whole Blood 197 mg/dL (70-110)
[2024-11-21 02:37] LABS: Glucose,Whole Blood 294 mg/dL (70-110)
[2024-11-21 05:37] LABS: Basophils # (A) 0.1 k/uL (0-0.2); Basophils % (A) 0 %; Eosinophils # (A) 0.1 k/uL (0-0.7); Eosinophils % (A) 1 %; HGB 13.4 gm/dL (13.0-17.5); Hypochromasia Slight; Lymphocytes # (A) 1.3 k/uL (1.0-4.8); Lymphocytes % (A) 6 %; MCHC 31.1 g/dL (31.0-37.0); MCV 93.1 fL (80.0-100.0); Mean Platelet Volume 11.1; Monocytes % (A) 5 %; Neutrophils % (A) 87 %; Platelet Count 136 k/uL (150-450); RBC 4.62 m/uL (4.30-5.90); RDW 14.2 % (11.5-15.5); WBC 20.7 k/uL (3.8-10.6)
[2024-11-21 05:55] LABS: African American GFR (CKD) 67 (>60 ml/min/1.73 sqM); Anion Gap 13 mmol/L; Blood Urea Nitrogen 18 mg/dL (9-20); Calcium 7.3 mg/dL (8.4-10.2); Carbon Dioxide 18 mmol/L (22-30); Chloride 105 mmol/L (98-107); Glucose 349 mg/dL (74-99); Magnesium 1.4 mg/dL (1.6-2.3); Non-African American GFR(CKD) 58 (>60 ml/min/1.73 sqM); Potassium 3.6 mmol/L (3.5-5.1); Sodium 136 mmol/L (137-145)
[2024-11-21] MEDS: POTASSIUM BICARBONATE/CIT AC 20 MEQ TABLET.EFF NG-TUBE SCH (06:30)
[2024-11-21] MEDS: MAGNESIUM SULFATE-D5W PMX 1 GM in DEXTROSE/WATER 1 100ML.BAG IVPB SCH (06:44)
[2024-11-21] MEDS: FUROSEMIDE 10 MG/ML 2 ML VIAL IV ONE (08:00)
[2024-11-21] MEDS: PIPERACILLIN-TAZOBACTAM 3.375 GM in SODIUM CHLORIDE 0.9% 100 ML IVPB SCH (08:02)
[2024-11-21] MEDS: SODIUM CHLORIDE 0.9% 500 ML 500 ML IV ONE (10:09)
--- NOTE | 2024-11-21 10:25 | P.PN ---
Subjective Patient is seen in follow-up for acute kidney injury and hypernatremia. Receiving tube feeds. Off IV fluids. Poor historian. Vital signs are stable. General: No acute distress. HEENT: Head exam is unremarkable. On nasal cannula. LUNGS: No audible rhonchi or wheezes. HEART: Rate and Rhythm are regular. ABDOMEN: Nontender. EXTREMITITES: No edema. Objective - Vital Signs Vital signs: Vital Signs Temp 100.3 F H 11/21/24 08:00 Pulse 140 H 11/21/24 10:00 Resp 24 11/21/24 10:00 BP 145/76 11/21/24 10:00 Pulse Ox 98 11/21/24 10:00 FiO2 Intake & Output 11/20/24 11/21/24 11/21/24 18:59 06:59 18:59 Intake Total 787.813 590 450 Output Total 1955 1575 600 Balance -1167.187 -985 -150 Weight 86.1 kg 84.5 kg Intake: IV 225 200 Dextrose 5% in Water 1, 225 000 ml @ 75 mls/hr IV . [id number] [facility] Rx#:[id number] Magnesium Sulfate-D5w Pmx 100 1 gm In Dextrose/Water 1 100ml.bag @ 100 mls/hr IVPB Q1H [facility] Rx#: [id number] Piperacillin-Tazobactam 3 100 .375 gm In Sodium Chloride 0.9% 100 ml @ 25 mls/hr IVPB Q8HR [facility] Rx# :[id number] Intake, IV Titration 92.813 Amount Dexmedetomidine/0.9% NaCl 92.813 (Pmx) 400 mcg In Empty Bag 1 bag @ 0.2 MCG/KG/HR 4.105 mls/hr IV .Q24H [facility] Rx#:[id number] Tube Feeding 380 550 220 Other 90 40 30 Output: Urine 955 1125 600 Stool 1000 450 Other: Voiding Method Indwelling Catheter Indwelling Catheter # Bowel Movements 1 - Labs CBC & Chem 7: 11/21/24 05:24 11/21/24 05:24 Labs: Abnormal Lab Results - Last 24 Hours (Table) 11/20/24 11/20/24 11/20/24 Range/Units 10:18 10:30 12:06 WBC (3.8-10.6) k/uL Plt Count (150-450) k/uL Neutrophils # (1.3-7.7) k/uL Sodium (137-145) mmol/L Potassium 3.2 L (3.5-5.1) mmol/L Carbon Dioxide (22-30) mmol/L Creatinine 1.27 H (0.66-1.25) mg/dL Glucose 176 H (74-99) mg/dL POC Glucose (mg/dL) 170 H (70-110) mg/dL Calcium 7.5 L (8.4-10.2) mg/dL Magnesium (1.6-2.3) mg/dL C. difficile (EIA) Intrp Positive A (Negative) 11/20/24 11/20/24 11/21/24 Range/Units 16:57 20:46 02:36 WBC (3.8-10.6) k/uL Plt Count (150-450) k/uL Neutrophils # (1.3-7.7) k/uL Sodium (137-145) mmol/L Potassium (3.5-5.1) mmol/L Carbon Dioxide (22-30) mmol/L Creatinine (0.66-1.25) mg/dL Glucose (74-99) mg/dL POC Glucose (mg/dL) 183 H 197 H 294 H (70-110) mg/dL Calcium (8.4-10.2) mg/dL Magnesium (1.6-2.3) mg/dL C. difficile (EIA) Intrp (Negative) 11/21/24 11/21/24 Range/Units 05:24 05:24 WBC 20.7 H (3.8-10.6) k/uL Plt Count 136 L (150-450) k/uL Neutrophils # 18.0 H (1.3-7.7) k/uL Sodium 136 L (137-145) mmol/L Potassium (3.5-5.1) mmol/L Carbon Dioxide 18 L (22-30) mmol/L Creatinine 1.26 H (0.66-1.25) mg/dL Glucose 349 H (74-99) mg/dL POC Glucose (mg/dL) (70-110) mg/dL Calcium 7.3 L (8.4-10.2) mg/dL Magnesium 1.4 L (1.6-2.3) mg/dL C. difficile (EIA) Intrp (Negative) Assessment and Plan Plan: Assessment: 1. Acute kidney injury secondary to ATN secondary to hyperosmolar nonketotic state. Creatinine 4.48 on admission and improved to 1.26. Unknown baseline renal function. No hydronephrosis noted on kidney ultrasound. UA benign. 2. Hypernatremia from lack of oral water intake. Improved with D5W. 3. Polysubstance drug abuse. 4. Metabolic encephalopathy. 5. Hyperkalemia on admission secondary to hyperglycemia. Resolved. Now potassium on the lower side and being replaced. 6. Hypomagnesemia from poor intake. Being replaced. 7. C. difficile colitis on oral vancomycin. 8. Metabolic acidosis secondary to GI losses. Plan: Maintain tube feeds. Avoid nephrotoxins. Replace electrolytes as needed. Continue to monitor renal function and urine output. Add oral bicarb. Patient noted to be febrile and in sinus tachycardia. Concern for sepsis/hypovolemia. Will give 500 cc bolus of normal saline.
[2024-11-21] MEDS: HYDROmorphone 0.5 MG/0.5 ML SYRINGE IVP PRN (11:02)
[2024-11-21 11:29] LABS: Glucose,Whole Blood 291 mg/dL (70-110)
[2024-11-21] MEDS: SODIUM BICARBONATE TAB 650 MG TAB PO SCH (12:16)
[2024-11-21] MEDS: POTASSIUM CHLORIDE ER 20 MEQ TAB.ER PO SCH (12:17)
[2024-11-21] MEDS: POTASSIUM BICARBONATE/CIT AC 20 MEQ TABLET.EFF PO ONE (12:19)
--- NOTE | 2024-11-21 13:48 | P.PN ---
Subjective Progress Note Date: 11/21/24 I am seeing the patient for the first time during this hospital admission. Please refer to Dr. Giles's note for further details. This seems the patient has altered mental status and was felt due to metabolic encephalopathy. Seems the patient has hyperosmolar hyperglycemic state acute kidney injury. Patient substance abuse was positive for cocaine. Patient has left ICA stenosis and vascular surgery was consulted and no intervention. Pending MRI of the brain Objective - Vital Signs Vital signs: Vital Signs Temp 100.0 F H 11/21/24 12:00 Pulse 128 H 11/21/24 13:00 Resp 24 11/21/24 13:00 BP 123/65 11/21/24 13:00 Pulse Ox 98 11/21/24 13:00 FiO2 Intake & Output 11/20/24 11/21/24 11/21/24 18:59 06:59 18:59 Intake Total 787.046 282 9757 Output Total 1955 1575 1125 Balance -1167.187 -985 -25 Weight 86.1 kg 84.5 kg Intake: IV 225 700 Dextrose 5% in Water 1, 225 000 ml @ 75 mls/hr IV . [id number] [facility] Rx#:[id number] Magnesium Sulfate-D5w Pmx 100 1 gm In Dextrose/Water 1 100ml.bag @ 100 mls/hr IVPB Q1H [facility] Rx#: [id number] Piperacillin-Tazobactam 3 100 .375 gm In Sodium Chloride 0.9% 100 ml @ 25 mls/hr IVPB Q8HR [facility] Rx# :[id number] Sodium Chloride 0.9% 500 500 ml 500 ml @ 999 mls/hr IV .Q31M [facility] Rx#:[id number] Intake, IV Titration 92.813 Amount Dexmedetomidine/0.9% NaCl 92.813 (Pmx) 400 mcg In Empty Bag 1 bag @ 0.2 MCG/KG/HR 4.105 mls/hr IV .Q24H [facility] Rx#:[id number] Tube Feeding 380 550 340 Other 90 40 60 Output: Urine 955 1125 1125 Stool 1000 450 Other: Voiding Method Indwelling Catheter Indwelling Catheter Indwelling Catheter # Bowel Movements 1 - Exam General: Lying in bed and is not in acute distress. Neuro: Very limited the patient is severely encephalopathic. He will open his eyes spontaneously and was spontaneously tracks slightly to the right and left but otherwise not following commands and not verbalizing. No facial weakness from limitation of examination. - Labs CBC & Chem 7: 11/21/24 05:24 11/21/24 10:29 Labs: Abnormal Lab Results - Last 24 Hours (Table) 11/20/24 11/20/24 11/20/24 Range/Units 10:18 16:57 20:46 WBC (3.8-10.6) k/uL Plt Count (150-450) k/uL Neutrophils # (1.3-7.7) k/uL Sodium (137-145) mmol/L Potassium (3.5-5.1) mmol/L Carbon Dioxide (22-30) mmol/L Creatinine (0.66-1.25) mg/dL Glucose (74-99) mg/dL POC Glucose (mg/dL) 183 H 197 H (70-110) mg/dL Calcium (8.4-10.2) mg/dL Magnesium (1.6-2.3) mg/dL C. difficile (EIA) Intrp Positive A (Negative) 11/21/24 11/21/24 11/21/24 Range/Units 02:36 05:24 05:24 WBC 20.7 H (3.8-10.6) k/uL Plt Count 136 L (150-450) k/uL Neutrophils # 18.0 H (1.3-7.7) k/uL Sodium 136 L (137-145) mmol/L Potassium (3.5-5.1) mmol/L Carbon Dioxide 18 L (22-30) mmol/L Creatinine 1.26 H (0.66-1.25) mg/dL Glucose 349 H (74-99) mg/dL POC Glucose (mg/dL) 294 H (70-110) mg/dL Calcium 7.3 L (8.4-10.2) mg/dL Magnesium 1.4 L (1.6-2.3) mg/dL C. difficile (EIA) Intrp (Negative) 11/21/24 11/21/24 Range/Units 10:29 11:26 WBC (3.8-10.6) k/uL Plt Count (150-450) k/uL Neutrophils # (1.3-7.7) k/uL Sodium (137-145) mmol/L Potassium 3.2 L (3.5-5.1) mmol/L Carbon Dioxide (22-30) mmol/L Creatinine (0.66-1.25) mg/dL Glucose (74-99) mg/dL POC Glucose (mg/dL) 291 H (70-110) mg/dL Calcium (8.4-10.2) mg/dL Magnesium (1.6-2.3) mg/dL C. difficile (EIA) Intrp (Negative) Assessment and Plan Assessment: * Altered mental status, likely due to metabolic encephalopathy. Limited examination is nonfocal. No definitive evidence of acute CVA. * Left ICA stenosis 70%, severe focal stenosis at the V3/V4 junction of right vertebral artery * positive C.Diff * Hyperosmolar hyperglycemic state * Type 2 diabetes, poorly controlled * Acute kidney injury * Respiratory acidosis * Lactic acidosis * Hyperkalemia, improved * Rhabdomyolysis * COPD * Substance abuse urine positive for cocaine. Plan: * Patient's examination is relatively nonfocal. CT head revealed no acute process. Minimal chronic small vessel ischemic change. * CTA of head and neck revealed segmental mild atherosclerotic narrowing throughout bilateral carotid siphons. No large vessel intracranial arterial occlusion or aneurysm seen. Severe focal stenosis at the V3/V4 junction of the right vertebral artery. Mild, less than 25% proximal right ICA stenosis. Severe, 70% stenosis for a span of 1.0 to 1.5 cm involving the upper left ICA.. * Primary team ordered an MRI Brain but still pending. I will get a repeat CT head in the mean time. * Consult vascular surgery and they recommended medical management. * Hemoglobin A1c 11.4. Recommend optimize control of diabetes to target A1c <7.0 * Lipid panel with cholesterol 142, LDL 68, HDL 53 and triglycerides 103. Start Lipitor 40 mg daily. * B12 2164, folate 19.3, RPR nonreactive, TSH. 1.19 * Repeat CK this morning has improved 736, trending down. * Per Dr. Giles continue aspirin 325 mg daily (started this admission). * Treatment of uncontrolled diabetes as per IM and critical care. * Recommend abstinence from substance abuse * Other medical management as per IM and other specialties on board. Plan is discussed with primary team. Time with Patient: Less than 30
--- NOTE | 2024-11-21 14:42 | P.PN ---
Subjective Progress Note Date: 11/21/24 Principal diagnosis: acute hyperglycemia with hyperosmolar nonketotic state 69-year-old male patient, diabetic, presents emerged part because of altered mentation. Immediately, the patient was noted to be hyperglycemic and had significant metabolic abnormalities consistent with hyperosmolar nonketotic state. Noted the blood sugar was measured to be at 1276. Ketones were ne gative. UA was showing plus for glucose. Urine drug screen was positive for cocaine. Viral 4 Plex was negative. In terms of the blood work, the patient's initial sodium level was at 140, potassium level was at 7.2, BUN was 163 with a creatinine of 4.48 with a anion gap of 21. Lactic acid was measured at 3.8 initially and is peaked at 5.8. LFTs were normal. CPK was 332. Troponins were negative. proBNP level was 215. Troponins were negative. Alcohol level was less than 10. Acetone was negative. The white cell count was at 17.6 with a hemoglobin of 17 and a platelet count of 139. Coagulation profile was within normal limits. Chest x-ray was done Emergency Department and it showed diffuse interstitial changes bilaterally, chronicity is unknown. CAT scan of the brain showed no evidence of any acute bleed or CVA it was consistent with mild chronic small vessel ischemic changes and there was no evidence of an acute CVA. CT angiogram of the brain showed COPD with moderate emphysematous changes in lung apices bilaterally. Less than 25% proximal right ICA stenosis, 70% left ICA disease and the campo vertebral arteries were small in caliber. Based on all this, the patient was started on fluid resuscitation. The patient was given normal saline, a total of 2 L and subsequently the patient was started on a bicarb infusion. Urine output is adequate for now. Subsequent blood work on this patient showed drop in the creatinine down to 3.12 with a BUN of 126. Sodium level came at 160 following the correction of the blood sugar. Most recent blood sugars down to 186 as the patient is currently on insulin drip for blood sugar control. Lactic acid level is currently at 5.0. Neurologically, the patient remains altered and confused. Unable to volunteer any history. He does mumble. He is afebrile for now. He is on room air oxygen. The cardiac rhythm is sinus. Ultrasound the kidneys was done and it showed no evidence of any hydronephrosis. On 11/14/2024, the patient is being seen for a follow-up. Seems to be much more alert and awake compared to yesterday although he remains somewhat confused. Family is at the bedside. The patient is currently on insulin drip running at 4 units an hour. The patient is also on half-normal saline running at 150 cc an hour. The patient's blood work from this morning showed a sodium level of 153 with a potassium level of 4.8, bicarb is at 18 with a BUN of 110 and a creatinine of 2.9. Noted the creatinine has been gradually improving. Potassium level is also stabilized. Sodium level is improving. The white cell count is 18.9 with a hemoglobin of 16.3. The chest x-ray shows chronic coarse interstitial infiltrates probably due to chronic ILD/fibrosis. The patient remains on empiric antibiotic coverage with IV Rocephin and Zithromax. Afebrile. Hemodynamically stable on no pressors. He has already started some soft diet. Urine drug screen is positive for cocaine. On 11/15/2024, the patient is being seen for a follow-up. The patient is confused. There could be a component of alcohol withdrawal syndrome as the patient admits to drinking 1 pint of alcohol on a daily basis. Hemodynamically stable. Continues to receive fluids and the patient remains on half-normal saline at rate of 150 cc an hour. A sitter is at the bedside. No focal neurological deficits. The blood sugar control is improved. Most recent electrolytes showed a sodium level of 152, potassium level is at 4.7, chlorides 119 and bicarb level is at 20. BUN is 56 with a creatinine of 2.03. Insulin drip was discontinued and the patient was placed on Levemir insulin 10 units in addition to his sign scale coverage. The patient is awaiting to be transferred to the intensive care unit. He was seen in the emergency department this morning. He is white cell count is 11 with a heme of 14.7 and platelet count of 69. He is currently on room air oxygen with a pulse ox of 95%. No signs of any respiratory distress. On 11/16/2024, patient is still confused. Breathing is slightly more labored and the patient is also bronchospastic and wheezy. Based on that, a blood gas was obtained and the patient was found to have a pH of 7.35 with a pCO2 of 49 and pO2 of 71. Chest x-ray showing chronic interstitial pulmonary infiltrates bilaterally, could be related to an underlying chronic fibrosis and background COPD. Meanwhile, the patient continues to be resuscitated with IV fluids. The patient has been switched to D5 water which is running at a rate of 100 cc an hour and this was a total of 250 cc an hour. The patient remains on Levemir insulin 10 units twice daily and a sliding scale coverage. He remains on 2 L of oxygen by nasal cannula. Suspect delirium tremens as the patient has a vague history of alcoholism. The patient is currently on low-dose Precedex. Neurologic exam is nonfocal. The patient has a sitter at the bedside. The white cell count of 10 with a heme of 15 and a platelet count of 72. Sodium is at 155, BUN 39 with a creatinine of 1.6. CPK 736, improving. Syphilis antibodies are negative. 11/17/2024, patient is on low-dose Precedex at 0.2 mcg/kg/min. No significant agitation. Remains encephalopathic. Obviously, clinical presentation and symptoms are consistent with delirium tremens. Hemodynamically stable. Less bronchospastic and wheezy compared to yesterday. Chest x-ray is consistent with COPD and pulmonary fibrosis. The patient is currently on D5 water running at 100 cc an hour. Electrolytes from today shows sodium level of 148, BUN 32 with a creatinine of 1.6 and a potassium level of 4. The white cell count 16 with a hemoglobin 13.3 and a platelet count of 77. Remains on Levemir insulin 10 units daily and sliding scale coverage. On 11/18/2023, the patient remains delirious, still on Precedex running at 1.2 mcg/kg/h. Occasional agitation. Sitter at the bedside. Neurologic exam remains nonfocal. Afebrile. Hemodynamically stable. Remains on 2 L of oxygen by nasal cannula. Remains NPO. Sodium levels at 147 and the patient is currently on D5 water running at 75 cc an hour. The patient is also on Levemir insulin 10 units once a day. Chloride is 115. BUN 34 with a creatinine of 1.42. Blood sugar this morning is at 270. White cell count is 18 with a hemoglobin of 14.3. No other significant events overnight. No respiratory distress. Patient was seen today on 11/19/2024, patient remains on Precedex at 0.9 mcg/kg/h requiring intermittent Ativan for agitation, patient is on 2 L nasal cannula D5W at 75 cc/h patient has been doing fairly well except for intermittent agitations, patient is known to have history of alcohol abuse, polysubstance abuse including cocaine presented with hyperglycemic/hyperosmolar state, nonketotic, patient is responding well to treatment. Sodium today is 143, labs were all reviewed, patient is still not ready to be sent and he may aspirate, hence I recommended a nasogastric tube placement today for enteral feeding.WBC count is 13.5 hemoglobin 13.7 electrolytes are normal BUN is 25 creatinine 1.34 Patient was seen today on 11/20/2024 patient remains in the ICU, on 2 L nasal cannula, still requiring low-dose of Precedex at 0.3 mcg/kg/h on D5W at 75 cc/h he is also receiving vital HP via nasogastric tube 30 mL/h Seroquel was added today at 50 mg twice daily via nasogastric tube, patient continues to have intermittent episodes of agitations and restlessness, hence Seroquel was added and will continue to taper the Precedex. Patient is also receiving Ativan intermittently for agitation. CBC showed leukocytosis with WBC count of 19.3 hemoglobin is normal electrolytes showed low potassium of 3.2 bicarb is normal BUN is 18 creatinine 1.27, steadily improving since the patient came in with initial creatinine of 4.48 mentally the patient remains lethargic and confused mumbles few words, unable to understand Patient was seen today on 11/21/2024, patient remains in the ICU, he is on 2 L nasal cannula, not in any distress, patient is even off Precedex, receiving vital AF 60/60 via nasogastric tube is receiving oral vancomycin for his C. difficile colitis his chest x-ray is showing bilateral infiltrates, normal BNP level, patient has a low-grade temp of 100.3 hence I suggested and recommended t hat the patient goes on Zosyn empirically patient has been a great set up for aspiration pneumonia, and that strongly suspected. He did receive Lasix earlier today but his BNP level is normal hence no more Lasix to be given. Overall neurologically the patient had slight improvement but nonetheless remains lethargic, unable to understand the words he mumbles quite weak. Today noted to have leukocytosis with WBC count of 20.7 hemoglobin 13.4 electrolytes are normal BUN is 18 creatinine 1.26 blood sugar is 349. Objective - Vital Signs Vital signs: Vital Signs Temp 100.0 F H 11/21/24 12:00 Pulse 123 H 11/21/24 14:00 Resp 26 H 11/21/24 14:00 BP 131/70 11/21/24 14:00 Pulse Ox 98 11/21/24 14:00 FiO2 Intake & Output 11/20/24 11/21/24 11/21/24 18:59 06:59 18:59 Intake Total 787.175 162 5609 Output Total 1955 1575 1425 Balance -1167.187 -985 -265 Weight 86.1 kg 84.5 kg Intake: IV 225 700 Dextrose 5% in Water 1, 225 000 ml @ 75 mls/hr IV . [id number] [facility] Rx#:[id number] Magnesium Sulfate-D5w Pmx 100 1 gm In Dextrose/Water 1 100ml.bag @ 100 mls/hr IVPB Q1H [facility] Rx#: [id number] Piperacillin-Tazobactam 3 100 .375 gm In Sodium Chloride 0.9% 100 ml @ 25 mls/hr IVPB Q8HR [facility] Rx# :[id number] Sodium Chloride 0.9% 500 500 ml 500 ml @ 999 mls/hr IV .Q31M [facility] Rx#:[id number] Intake, IV Titration 92.813 Amount Dexmedetomidine/0.9% NaCl 92.813 (Pmx) 400 mcg In Empty Bag 1 bag @ 0.2 MCG/KG/HR 4.105 mls/hr IV .Q24H [facility] Rx#:[id number] Tube Feeding 380 550 400 Other 90 40 60 Output: Urine 955 1125 1425 Stool 1000 450 Other: Voiding Method Indwelling Catheter Indwelling Catheter Indwelling Catheter # Bowel Movements 1 - Exam General: Revealed 69-year-old -[place] male in no distress on 2 L nasal cannula Head: Atraumatic normocephalic EENT: PERRLA, EOMI, nonicteric no neck masses no JVD Cardiovascular: Distant S1-S2, no S3 gallop, no murmur Lungs: Crackles bilaterally no rhonchi no wheezes Abdominal: Soft nontender no rebound no guarding no tenderness. Ext: No clubbing edema or cyanosis Neuro: Remains lethargic, off Precedex, still on the CIWA protocol. Psych: Difficult to assess, patient is lethargic,mumbles few words, unable to understand - Labs CBC & Chem 7: 11/21/24 05:24 11/21/24 10:29 Labs: Abnormal Lab Results - Last 24 Hours (Table) 11/20/24 11/20/24 11/20/24 Range/Units 10:18 16:57 20:46 WBC (3.8-10.6) k/uL Plt Count (150-450) k/uL Neutrophils # (1.3-7.7) k/uL Sodium (137-145) mmol/L Potassium (3.5-5.1) mmol/L Carbon Dioxide (22-30) mmol/L Creatinine (0.66-1.25) mg/dL Glucose (74-99) mg/dL POC Glucose (mg/dL) 183 H 197 H (70-110) mg/dL Calcium (8.4-10.2) mg/dL Magnesium (1.6-2.3) mg/dL C. difficile (EIA) Intrp Positive A (Negative) 11/21/24 11/21/24 11/21/24 Range/Units 02:36 05:24 05:24 WBC 20.7 H (3.8-10.6) k/uL Plt Count 136 L (150-450) k/uL Neutrophils # 18.0 H (1.3-7.7) k/uL Sodium 136 L (137-145) mmol/L Potassium (3.5-5.1) mmol/L Carbon Dioxide 18 L (22-30) mmol/L Creatinine 1.26 H (0.66-1.25) mg/dL Glucose 349 H (74-99) mg/dL POC Glucose (mg/dL) 294 H (70-110) mg/dL Calcium 7.3 L (8.4-10.2) mg/dL Magnesium 1.4 L (1.6-2.3) mg/dL C. difficile (EIA) Intrp (Negative) 11/21/24 11/21/24 Range/Units 10:29 11:26 WBC (3.8-10.6) k/uL Plt Count (150-450) k/uL Neutrophils # (1.3-7.7) k/uL Sodium (137-145) mmol/L Potassium 3.2 L (3.5-5.1) mmol/L Carbon Dioxide (22-30) mmol/L Creatinine (0.66-1.25) mg/dL Glucose (74-99) mg/dL POC Glucose (mg/dL) 291 H (70-110) mg/dL Calcium (8.4-10.2) mg/dL Magnesium (1.6-2.3) mg/dL C. difficile (EIA) Intrp (Negative) Assessment and Plan Assessment: Impression: Acute hyperglycemia with hyperosmolar nonketotic state, resolved Acute hyponatremia secondary to above Acute metabolic encephalopathy Severe dehydration upon presentation secondary to above None anion gap metabolic acidosis, resolved Acute kidney injury secondary to hypovolemia and intravascular depletion Lactic acidosis with mild anion gap metabolic acidosis, ketones negative Mild rhabdomyolysis Electrolytes imbalance secondary to above History of substance abuse/cocaine positive on drug screen History of carotid artery stenosis History of underlying COPD History of chronic mild interstitial lung disease may eventually require CT of the chest on outpatient basis Chronic thrombocytopenia secondary to alcoholism and alcohol use Acute delirium secondary to alcohol withdrawal requiring Precedex Possible aspiration pneumonia hence Zosyn was added today. Recommendation: Continue to monitor in ICU Continue CIWA protocol Continue insulin Levemir and NovoLog insulin/sliding scale Continue Seroquel Continue DVT prophylaxis Continue GI prophylaxis Aspiration precautions, placed on Zosyn for presumptive aspiration pneumonia Patient is improving but not quite ready to be transferred out of the ICU Time with Patient: Less than 30
[2024-11-21 16:34] LABS: Glucose,Whole Blood 309 mg/dL (70-110)
--- NOTE | 2024-11-21 17:20 | CT ---
EXAMINATION TYPE: CT brain wo con DATE OF EXAM: 11/21/2024 5:00 PM COMPARISON: 11/13/2024. CLINICAL INDICATION: Male, 69 years old with history of altered mental status, AMS, C DIFF positive TECHNIQUE: Brain: Axial CT images of the brain were obtained with coronal and sagittal reformats created and rev iewed. Contrast used: None. Oral contrast used: None. CT DLP: 1168.4 mGycm, Automated exposure control for dose reduction was used. FINDINGS: Brain: Extra-axial spaces: No abnormal extra-axial fluid collections. Ventricular system: Within normal limits Cerebral parenchyma: No acute intraparenchymal hemorrhage or mass effect. The munguia-white junction is well differentiated. Cerebellum: Unremarkable. Mass effect: No evidence of midline shift. Intracranial vasculature: Atherosclerotic calcifications of the intracranial vessels. Soft tissues: Normal. Calvarium/osseous structures: No depressed skull fracture. Paranasal sinuses and mastoid air cells: Mild scattered paranasal sinus disease. Visualized orbits: Orbital contents are intact. Nasogastric tube partially visualized. IMPRESSION: No acute intracranial process. [facility], , 11/21/2024 5:18 PM
--- NOTE | 2024-11-21 17:34 | P.PN ---
Subjective Progress Note Date: 11/21/24 Patient was seen and examined. Confused. Tmax 100.3F over the past 24H. Antibiotics include Zosyn 3.75 g IV TID and Vancomycin 125 mg NG QID. CBC and BMP significant for WBC 20.7, Plt 136, Na 136, bicarb 18, Cr 1.26, glu 349, Ca 7.3. Mag 1.4. BNP 336. Brain CT done today shows no acute process. Gen: In NAD, obtunded HEENT: normocephalic, atraumatic, hearing acuity is intant, mucous membranes moist CVS: perfusing all extremities well, no pitting edema, Respiratory: symmetric chest expansion, accessory muscle use is present, diffuse wheezing and diminished lung sounds GI: soft, NTTP, ND, : no suprapubic tenderness, no CVA tenderness MSK/Derm: no rashes, cyanosis Neuro: unable to determine Based on my assessment of this patient, this patient meets a high complexity level of care. Acute metabolic encephalopathy Sepsis likely due to C. diff colitis COPD with acute exacerbation Acute hypoxic hypercapnic respiratory failure Pulmonary fibrosis Thrombocytopenia Acute kidney injury, resolving Rhabdo, resolved Cocaine positive Carotid artery stenosis Resolved: HyperK, Lactic acidosis, Rhabdo, HyperNa, Hyperosmolar hyperglycemic state Continue CIWA protocol with Ativan PRN + Seroquel 50 mg PO BID. Discussed with Dr. Bhatti, CT brain today shows no acute process, MRI brain when able. Continue Zosyn 3.75g IV TID for concerns for aspiration PNA and Vancomycin for C. diff colitis. Levemir 10 units BID. ISS + Accuchecks ACHS with hypoglycemic precautions. Started on sodium bicarb 650 mg PO BID for metabolic acidosis by Nephrology. Nephrology, Neurology and Pulmonary on board. CODE STATUS: FULL CODE DVT Prophylaxis: SCD GI Prophylaxis: Designated medical POA if patient is not able to make medical decisions for themselves: I have reviewed the following outside sales consultant notes: Nephrology, Pulmonary, Neurology. I have reviewed the results of the following tests: CBC, BMP, Mag. BNP. I have ordered the following tests: I have discussed the care of this patient with the following independent historian: SELINA. I have independently interpreted the following test below: CT brain. I have discussed the management of this patient with the following physician: Dr. Bhatti. Objective - Vital Signs Vital signs: Vital Signs Temp 99.8 F H 01/15/25 16:00 Pulse 121 H 11/21/24 17:00 Resp 20 11/21/24 17:00 BP 148/68 11/21/24 17:00 Pulse Ox 99 11/21/24 17:00 FiO2 Intake & Output 11/20/24 11/21/24 11/21/24 18:59 06:59 18:59 Intake Total 787.603 992 3961 Output Total 1956 1575 2125 Balance -1167.187 -985 -755 Weight 86.1 kg 84.5 kg Intake: IV 225 700 Dextrose 5% in Water 1, 225 000 ml @ 75 mls/hr IV . [id number] [facility] Rx#:[id number] Magnesium Sulfate-D5w Pmx 100 1 gm In Dextrose/Water 1 100ml.bag @ 100 mls/hr IVPB Q1H [facility] Rx#: [id number] Piperacillin-Tazobactam 3 100 .375 gm In Sodium Chloride 0.9% 100 ml @ 25 mls/hr IVPB Q8HR [facility] Rx# :[id number] Sodium Chloride 0.9% 500 500 ml 500 ml @ 999 mls/hr IV .Q31M ONE Rx#:[id number] Intake, IV Titration 92.813 Amount Dexmedetomidine/0.9% NaCl 92.813 (Pmx) 400 mcg In Empty Bag 1 bag @ 0.2 MCG/KG/HR 4.105 mls/hr IV .Q24H [facility] Rx#:[id number] Tube Feeding 380 550 580 Other 90 40 90 Output: Urine 955 1125 2125 Stool 1000 450 Other: Voiding Method Indwelling Catheter Indwelling Catheter Indwelling Catheter # Bowel Movements 1 - Labs CBC & Chem 7: 11/21/24 05:24 11/21/24 10:29 Labs: Abnormal Lab Results - Last 24 Hours (Table) 11/20/24 11/21/24 11/21/24 Range/Units 20:46 02:36 05:24 WBC 20.7 H (3.8-10.6) k/uL Plt Count 136 L (150-450) k/uL Neutrophils # 18.0 H (1.3-7.7) k/uL Sodium (137-145) mmol/L Potassium (3.5-5.1) mmol/L Carbon Dioxide (22-30) mmol/L Creatinine (0.66-1.25) mg/dL Glucose (74-99) mg/dL POC Glucose (mg/dL) 197 H 294 H (70-110) mg/dL Calcium (8.4-10.2) mg/dL Magnesium (1.6-2.3) mg/dL 11/21/24 11/21/24 11/21/24 Range/Units 05:24 10:29 11:26 WBC (3.8-10.6) k/uL Plt Count (150-450) k/uL Neutrophils # (1.3-7.7) k/uL Sodium 136 L (137-145) mmol/L Potassium 3.2 L (3.5-5.1) mmol/L Carbon Dioxide 18 L (22-30) mmol/L Creatinine 1.26 H (0.66-1.25) mg/dL Glucose 349 H (74-99) mg/dL POC Glucose (mg/dL) 291 H (70-110) mg/dL Calcium 7.3 L (8.4-10.2) mg/dL Magnesium 1.4 L (1.6-2.3) mg/dL 11/21/24 Range/Units 16:32 WBC (3.8-10.6) k/uL Plt Count (150-450) k/uL Neutrophils # (1.3-7.7) k/uL Sodium (137-145) mmol/L Potassium (3.5-5.1) mmol/L Carbon Dioxide (22-30) mmol/L Creatinine (0.66-1.25) mg/dL Glucose (74-99) mg/dL POC Glucose (mg/dL) 309 H (70-110) mg/dL Calcium (8.4-10.2) mg/dL Magnesium (1.6-2.3) mg/dL
[2024-11-21] MEDS: SODIUM CHLORIDE 0.9% 500 ML 250 ML IV ONE (17:53)
[2024-11-21 21:06] LABS: Glucose,Whole Blood 252 mg/dL (70-110)
[2024-11-22 03:15] LABS: Glucose,Whole Blood 348 mg/dL (70-110)
[2024-11-22 03:40] LABS: Basophils % (A) 0 %; Eosinophils # (A) 0.2 k/uL (0-0.7); Eosinophils % (A) 1 %; HCT 39.4 % (39.0-53.0); HGB 12.3 gm/dL (13.0-17.5); Hypochromasia Moderate; Lymphocytes # (A) 1.6 k/uL (1.0-4.8); Lymphocytes % (A) 10 %; MCH 29.2 pg (25.0-35.0); MCHC 31.3 g/dL (31.0-37.0); MCV 93.4 fL (80.0-100.0); Mean Platelet Volume 10.7; Monocytes % (A) 6 %; Neutrophils % (A) 81 %; Platelet Count 132 k/uL (150-450); RBC 4.22 m/uL (4.30-5.90); RDW 14.4 % (11.5-15.5); WBC 16.1 k/uL (3.8-10.6)
[2024-11-22 03:57] LABS: African American GFR (CKD) 64 (>60 ml/min/1.73 sqM); Anion Gap 8 mmol/L; Blood Urea Nitrogen 25 mg/dL (9-20); Calcium 7.7 mg/dL (8.4-10.2); Carbon Dioxide 27 mmol/L (22-30); Chloride 106 mmol/L (98-107); Glucose 361 mg/dL (74-99); Magnesium 1.6 mg/dL (1.6-2.3); Non-African American GFR(CKD) 55 (>60 ml/min/1.73 sqM); Potassium 3.7 mmol/L (3.5-5.1); Sodium 141 mmol/L (137-145)
[2024-11-22] MEDS: MAGNESIUM SULFATE-D5W PMX 1 GM in DEXTROSE/WATER 1 100ML.BAG IVPB SCH (05:29)
[2024-11-22] MEDS: POTASSIUM BICARBONATE/CIT AC 20 MEQ TABLET.EFF NG-TUBE SCH (05:30)
[2024-11-22 06:17] LABS: Glucose,Whole Blood 428 mg/dL (70-110)
--- NOTE | 2024-11-22 07:28 | XR ---
EXAMINATION TYPE: XR chest 1V portable DATE OF EXAM: 11/22/2024 5:37 AM COMPARISON: Chest radiographs from 11/19/2024 CLINICAL INDICATION: Male, 69 years old with history of concern for possible aspiration; [facility] TECHNIQUE: XR chest 1V portable Frontal view of the chest. FINDINGS: Lungs/Pleura: There are bibasilar airspace opacities present. There is no evidence of pleural effusio n, focal consolidation, or pneumothorax. Scattered interstitial lung prominence are unchanged Pulmonary vascularity: Unremarkable. Heart/mediastinum: Cardiomediastinal silhouette is unremarkable. Musculoskeletal: No acute osseous pathology. Other findings: Nasogastric tube in appropriate position. IMPRESSION: Bibasilar airspace opacities which could be compatible with aspiration correlate with speech patholog y evaluation. [facility], , 11/22/2024 7:26 AM
[2024-11-22] MEDS: SODIUM CHLORIDE 0.9% 1,000 ML IV SCH (09:34)
--- NOTE | 2024-11-22 09:55 | P.PN ---
Subjective Patient is seen in follow-up for acute kidney injury and hypernatremia. Receiving tube feeds. Received fluid bolus yesterday. Vital signs are stable. General: No acute distress. HEENT: Head exam is unremarkable. NG tube noted. LUNGS: No audible rhonchi or wheezes. HEART: Rate and Rhythm are regular. ABDOMEN: Nontender. EXTREMITITES: No edema. Objective - Vital Signs Vital signs: Vital Signs Temp 97.7 F 11/22/24 08:00 Pulse 124 H 11/22/24 09:00 Resp 19 11/22/24 09:00 BP 140/63 11/22/24 09:00 Pulse Ox 97 11/22/24 09:00 FiO2 Intake & Output 11/21/24 11/22/24 11/22/24 18:59 06:59 18:59 Intake Total 1530 1240 280 Output Total 2200 1485 550 Balance -670 -245 -270 Weight 83.8 kg Intake: IV 800 350 40 KVO 40 Magnesium Sulfate-D5w Pmx 100 1 gm In Dextrose/Water 1 100ml.bag @ 100 mls/hr IVPB Q1H [facility] Rx#: [id number] Piperacillin-Tazobactam 3 200 100 .375 gm In Sodium Chloride 0.9% 100 ml @ 25 mls/hr IVPB Q8HR [facility] Rx# :[id number] Sodium Chloride 0.9% 500 250 ml 250 ml @ 999 mls/hr IV .Q16M [facility] Rx#:[id number] Sodium Chloride 0.9% 500 500 ml 500 ml @ 999 mls/hr IV .Q31M [facility] Rx#:[id number] Tube Feeding 640 840 210 Other 90 50 30 Output: Urine 2200 1485 550 Other: Voiding Method Indwelling Catheter Indwelling Catheter Indwelling Catheter - Labs CBC & Chem 7: 11/22/24 03:07 11/22/24 03:07 Labs: Abnormal Lab Results - Last 24 Hours (Table) 11/21/24 11/21/24 11/21/24 Range/Units 10:29 11:26 16:32 WBC (3.8-10.6) k/uL RBC (4.30-5.90) m/uL Hgb (13.0-17.5) gm/dL Plt Count (150-450) k/uL Neutrophils # (1.3-7.7) k/uL Potassium 3.2 L (3.5-5.1) mmol/L BUN (9-20) mg/dL Creatinine (0.66-1.25) mg/dL Glucose (74-99) mg/dL POC Glucose (mg/dL) 291 H 309 H (70-110) mg/dL Calcium (8.4-10.2) mg/dL 11/21/24 11/22/24 11/22/24 Range/Units 21:05 03:07 03:07 WBC 16.1 H (3.8-10.6) k/uL RBC 4.22 L (4.30-5.90) m/uL Hgb 12.3 L (13.0-17.5) gm/dL Plt Count 132 L (150-450) k/uL Neutrophils # 13.0 H (1.3-7.7) k/uL Potassium (3.5-5.1) mmol/L BUN 25 H (9-20) mg/dL Creatinine 1.32 H (0.66-1.25) mg/dL Glucose 361 H (74-99) mg/dL POC Glucose (mg/dL) 252 H (70-110) mg/dL Calcium 7.7 L (8.4-10.2) mg/dL 11/22/24 11/22/24 Range/Units 03:14 06:15 WBC (3.8-10.6) k/uL RBC (4.30-5.90) m/uL Hgb (13.0-17.5) gm/dL Plt Count (150-450) k/uL Neutrophils # (1.3-7.7) k/uL Potassium (3.5-5.1) mmol/L BUN (9-20) mg/dL Creatinine (0.66-1.25) mg/dL Glucose (74-99) mg/dL POC Glucose (mg/dL) 348 H 428 H (70-110) mg/dL Calcium (8.4-10.2) mg/dL Assessment and Plan Plan: Assessment: 1. Acute kidney injury secondary to ATN secondary to hyperosmolar nonketotic state. Creatinine 4.48 on admission and stable at 1.32 today. Unknown baseline renal function. No hydronephrosis noted on kidney ultrasound. UA benign. 2. Hypernatremia from lack of oral water intake. Status post D5W. Improved. 3. Polysubstance drug abuse. 4. Metabolic encephalopathy. 5. Hyperkalemia on admission secondary to hyperglycemia. Resolved. Subsequently became hypokalemic and was replaced. 6. Hypomagnesemia from poor intake and GI losses. Being replaced. 7. C. difficile colitis on oral vancomycin. 8. Metabolic acidosis secondary to GI losses. On oral bicarb. Better. Plan: Maintain tube feeds. IV fluids started this morning. Avoid nephrotoxins. Replace electrolytes as needed. Continue to monitor renal function and urine output.
[2024-11-22 11:14] LABS: Glucose,Whole Blood 388 mg/dL (70-110)
--- NOTE | 2024-11-22 12:09 | P.PN ---
Subjective Progress Note Date: 11/22/24 I am following up with the patient and per the ICU nurse the patient's overall condition is about the same. Unable to obtain MRI because of his cooperation. Patient had a repeat CT of the head yesterday which is negative for any acute process. Objective - Vital Signs Vital signs: Vital Signs Temp 97.7 F 11/22/24 08:00 Pulse 128 H 11/22/24 11:00 Resp 17 11/22/24 11:00 BP 130/56 11/22/24 11:00 Pulse Ox 99 11/22/24 11:00 FiO2 Intake & Output 11/21/24 11/22/24 11/22/24 18:59 06:59 18:59 Intake Total 1530 1240 620 Output Total 2200 1485 800 Balance -670 -245 -180 Weight 83.8 kg 83.8 kg Intake: IV 800 350 240 KVO 40 Magnesium Sulfate-D5w Pmx 100 1 gm In Dextrose/Water 1 100ml.bag @ 100 mls/hr IVPB Q1H [facility] Rx#: [id number] Piperacillin-Tazobactam 3 200 100 .375 gm In Sodium Chloride 0.9% 100 ml @ 25 mls/hr IVPB Q8HR [facility] Rx# :[id number] Sodium Chloride 0.9% 1, 200 000 ml @ 100 mls/hr IV . Q10H [facility] Rx#:[id number] Sodium Chloride 0.9% 500 250 ml 250 ml @ 999 mls/hr IV .Q16M [facility] Rx#:[id number] Sodium Chloride 0.9% 500 500 ml 500 ml @ 999 mls/hr IV .Q31M [facility] Rx#:[id number] Tube Feeding 640 840 350 Other 90 50 30 Output: Urine 2200 1485 800 Other: Voiding Method Indwelling Catheter Indwelling Catheter Indwelling Catheter - Exam General: Lying in bed and is not in acute distress. Neuro: Very limited the patient is severely encephalopathic. He will open his eyes spontaneously and was spontaneously tracks slightly to the right and left but otherwise not following commands. He would mumble words and is nonsensical. No facial weakness from limitation of examination. He would move his upper extremities spontaneously. - Labs CBC & Chem 7: 11/22/24 03:07 11/22/24 03:07 Labs: Abnormal Lab Results - Last 24 Hours (Table) 11/21/24 11/21/24 11/22/24 Range/Units 16:32 21:05 03:07 WBC (3.8-10.6) k/uL RBC (4.30-5.90) m/uL Hgb (13.0-17.5) gm/dL Plt Count (150-450) k/uL Neutrophils # (1.3-7.7) k/uL BUN 25 H (9-20) mg/dL Creatinine 1.32 H (0.66-1.25) mg/dL Glucose 361 H (74-99) mg/dL POC Glucose (mg/dL) 309 H 252 H (70-110) mg/dL Calcium 7.7 L (8.4-10.2) mg/dL 11/22/24 11/22/24 11/22/24 Range/Units 03:07 03:14 06:15 WBC 16.1 H (3.8-10.6) k/uL RBC 4.22 L (4.30-5.90) m/uL Hgb 12.3 L (13.0-17.5) gm/dL Plt Count 132 L (150-450) k/uL Neutrophils # 13.0 H (1.3-7.7) k/uL BUN (9-20) mg/dL Creatinine (0.66-1.25) mg/dL Glucose (74-99) mg/dL POC Glucose (mg/dL) 348 H 428 H (70-110) mg/dL Calcium (8.4-10.2) mg/dL 11/22/24 Range/Units 11:13 WBC (3.8-10.6) k/uL RBC (4.30-5.90) m/uL Hgb (13.0-17.5) gm/dL Plt Count (150-450) k/uL Neutrophils # (1.3-7.7) k/uL BUN (9-20) mg/dL Creatinine (0.66-1.25) mg/dL Glucose (74-99) mg/dL POC Glucose (mg/dL) 388 H (70-110) mg/dL Calcium (8.4-10.2) mg/dL Assessment and Plan Assessment: * Altered mental status, likely due to metabolic encephalopathy. Limited examination is nonfocal. No definitive evidence of acute CVA. * Left ICA stenosis 70%, severe focal stenosis at the V3/V4 junction of right vertebral artery * positive C.Diff * Hyperosmolar hyperglycemic state * Type 2 diabetes, poorly controlled * Acute kidney injury * Respiratory acidosis * Lactic acidosis * Hyperkalemia, improved * Rhabdomyolysis * COPD * Substance abuse urine positive for cocaine. Plan: * CTA of head and neck revealed segmental mild atherosclerotic narrowing throughout bilateral carotid siphons. No large vessel intracranial arterial occlusion or aneurysm seen. Severe focal stenosis at the V3/V4 junction of the right vertebral artery. Mild, less than 25% proximal right ICA stenosis. Severe, 70% stenosis for a span of 1.0 to 1.5 cm involving the upper left ICA.. * Primary team ordered an MRI Brain but still pending. * Repeat CT head on 11/21/2024: No acute intracranial process. * Vascular surgery consulted and they recommended medical management. * Hemoglobin A1c 11.4. Recommend optimize control of diabetes to target A1c <7.0 * Lipid panel with cholesterol 142, LDL 68, HDL 53 and triglycerides 103. Start Lipitor 40 mg daily. * B12 2164, folate 19.3, RPR nonreactive, TSH. 1.19 * Repeat CK this morning has improved 736, trending down. * Per Dr. Giles continue aspirin 325 mg daily (started this admission). * Treatment of uncontrolled diabetes as per IM and critical care. * Recommend abstinence from substance abuse * Other medical management as per IM and other specialties on board. Plan is discussed with ICU team. Will follow-up with patient sporadically. Time with Patient: Less than 30
[2024-11-22] MEDS: ACETAMINOPHEN TAB 325 MG TAB PO PRN (12:21)
--- NOTE | 2024-11-22 13:23 | P.PN ---
Subjective Progress Note Date: 11/22/24 Principal diagnosis: acute hyperglycemia with hyperosmolar nonketotic state 69-year-old male patient, diabetic, presents emerged part because of altered mentation. Immediately, the patient was noted to be hyperglycemic and had significant metabolic abnormalities consistent with hyperosmolar nonketotic state. Noted the blood sugar was measured to be at 1276. Ketones were ne gative. UA was showing plus for glucose. Urine drug screen was positive for cocaine. Viral 4 Plex was negative. In terms of the blood work, the patient's initial sodium level was at 140, potassium level was at 7.2, BUN was 163 with a creatinine of 4.48 with a anion gap of 21. Lactic acid was measured at 3.8 initially and is peaked at 5.8. LFTs were normal. CPK was 332. Troponins were negative. proBNP level was 215. Troponins were negative. Alcohol level was less than 10. Acetone was negative. The white cell count was at 17.6 with a hemoglobin of 17 and a platelet count of 139. Coagulation profile was within normal limits. Chest x-ray was done Emergency Department and it showed diffuse interstitial changes bilaterally, chronicity is unknown. CAT scan of the brain showed no evidence of any acute bleed or CVA it was consistent with mild chronic small vessel ischemic changes and there was no evidence of an acute CVA. CT angiogram of the brain showed COPD with moderate emphysematous changes in lung apices bilaterally. Less than 25% proximal right ICA stenosis, 70% left ICA disease and the telida vertebral arteries were small in caliber. Based on all this, the patient was started on fluid resuscitation. The patient was given normal saline, a total of 2 L and subsequently the patient was started on a bicarb infusion. Urine output is adequate for now. Subsequent blood work on this patient showed drop in the creatinine down to 3.12 with a BUN of 126. Sodium level came at 160 following the correction of the blood sugar. Most recent blood sugars down to 186 as the patient is currently on insulin drip for blood sugar control. Lactic acid level is currently at 5.0. Neurologically, the patient remains altered and confused. Unable to volunteer any history. He does mumble. He is afebrile for now. He is on room air oxygen. The cardiac rhythm is sinus. Ultrasound the kidneys was done and it showed no evidence of any hydronephrosis. On 11/14/2024, the patient is being seen for a follow-up. Seems to be much more alert and awake compared to yesterday although he remains somewhat confused. Family is at the bedside. The patient is currently on insulin drip running at 4 units an hour. The patient is also on half-normal saline running at 150 cc an hour. The patient's blood work from this morning showed a sodium level of 153 with a potassium level of 4.8, bicarb is at 18 with a BUN of 110 and a creatinine of 2.9. Noted the creatinine has been gradually improving. Potassium level is also stabilized. Sodium level is improving. The white cell count is 18.9 with a hemoglobin of 16.3. The chest x-ray shows chronic coarse interstitial infiltrates probably due to chronic ILD/fibrosis. The patient remains on empiric antibiotic coverage with IV Rocephin and Zithromax. Afebrile. Hemodynamically stable on no pressors. He has already started some soft diet. Urine drug screen is positive for cocaine. On 11/15/2024, the patient is being seen for a follow-up. The patient is confused. There could be a component of alcohol withdrawal syndrome as the patient admits to drinking 1 pint of alcohol on a daily basis. Hemodynamically stable. Continues to receive fluids and the patient remains on half-normal saline at rate of 150 cc an hour. A sitter is at the bedside. No focal neurological deficits. The blood sugar control is improved. Most recent electrolytes showed a sodium level of 152, potassium level is at 4.7, chlorides 119 and bicarb level is at 20. BUN is 56 with a creatinine of 2.03. Insulin drip was discontinued and the patient was placed on Levemir insulin 10 units in addition to his sign scale coverage. The patient is awaiting to be transferred to the intensive care unit. He was seen in the emergency department this morning. He is white cell count is 11 with a heme of 14.7 and platelet count of 69. He is currently on room air oxygen with a pulse ox of 95%. No signs of any respiratory distress. On 11/16/2024, patient is still confused. Breathing is slightly more labored and the patient is also bronchospastic and wheezy. Based on that, a blood gas was obtained and the patient was found to have a pH of 7.35 with a pCO2 of 49 and pO2 of 71. Chest x-ray showing chronic interstitial pulmonary infiltrates bilaterally, could be related to an underlying chronic fibrosis and background COPD. Meanwhile, the patient continues to be resuscitated with IV fluids. The patient has been switched to D5 water which is running at a rate of 100 cc an hour and this was a total of 250 cc an hour. The patient remains on Levemir insulin 10 units twice daily and a sliding scale coverage. He remains on 2 L of oxygen by nasal cannula. Suspect delirium tremens as the patient has a vague history of alcoholism. The patient is currently on low-dose Precedex. Neurologic exam is nonfocal. The patient has a sitter at the bedside. The white cell count of 10 with a heme of 15 and a platelet count of 72. Sodium is at 155, BUN 39 with a creatinine of 1.6. CPK 736, improving. Syphilis antibodies are negative. 11/17/2024, patient is on low-dose Precedex at 0.2 mcg/kg/min. No significant agitation. Remains encephalopathic. Obviously, clinical presentation and symptoms are consistent with delirium tremens. Hemodynamically stable. Less bronchospastic and wheezy compared to yesterday. Chest x-ray is consistent with COPD and pulmonary fibrosis. The patient is currently on D5 water running at 100 cc an hour. Electrolytes from today shows sodium level of 148, BUN 32 with a creatinine of 1.6 and a potassium level of 4. The white cell count 16 with a hemoglobin 13.3 and a platelet count of 77. Remains on Levemir insulin 10 units daily and sliding scale coverage. On 11/18/2023, the patient remains delirious, still on Precedex running at 1.2 mcg/kg/h. Occasional agitation. Sitter at the bedside. Neurologic exam remains nonfocal. Afebrile. Hemodynamically stable. Remains on 2 L of oxygen by nasal cannula. Remains NPO. Sodium levels at 147 and the patient is currently on D5 water running at 75 cc an hour. The patient is also on Levemir insulin 10 units once a day. Chloride is 115. BUN 34 with a creatinine of 1.42. Blood sugar this morning is at 270. White cell count is 18 with a hemoglobin of 14.3. No other significant events overnight. No respiratory distress. Patient was seen today on 11/19/2024, patient remains on Precedex at 0.9 mcg/kg/h requiring intermittent Ativan for agitation, patient is on 2 L nasal cannula D5W at 75 cc/h patient has been doing fairly well except for intermittent agitations, patient is known to have history of alcohol abuse, polysubstance abuse including cocaine presented with hyperglycemic/hyperosmolar state, nonketotic, patient is responding well to treatment. Sodium today is 143, labs were all reviewed, patient is still not ready to be sent and he may aspirate, hence I recommended a nasogastric tube placement today for enteral feeding.WBC count is 13.5 hemoglobin 13.7 electrolytes are normal BUN is 25 creatinine 1.34 Patient was seen today on 11/20/2024 patient remains in the ICU, on 2 L nasal cannula, still requiring low-dose of Precedex at 0.3 mcg/kg/h on D5W at 75 cc/h he is also receiving vital HP via nasogastric tube 30 mL/h Seroquel was added today at 50 mg twice daily via nasogastric tube, patient continues to have intermittent episodes of agitations and restlessness, hence Seroquel was added and will continue to taper the Precedex. Patient is also receiving Ativan intermittently for agitation. CBC showed leukocytosis with WBC count of 19.3 hemoglobin is normal electrolytes showed low potassium of 3.2 bicarb is normal BUN is 18 creatinine 1.27, steadily improving since the patient came in with initial creatinine of 4.48 mentally the patient remains lethargic and confused mumbles few words, unable to understand Patient was seen today on 11/21/2024, patient remains in the ICU, he is on 2 L nasal cannula, not in any distress, patient is even off Precedex, receiving vital AF 60/60 via nasogastric tube is receiving oral vancomycin for his C. difficile colitis his chest x-ray is showing bilateral infiltrates, normal BNP level, patient has a low-grade temp of 100.3 hence I suggested and recommended t hat the patient goes on Zosyn empirically patient has been a great set up for aspiration pneumonia, and that strongly suspected. He did receive Lasix earlier today but his BNP level is normal hence no more Lasix to be given. Overall neurologically the patient had slight improvement but nonetheless remains lethargic, unable to understand the words he mumbles quite weak. Today noted to have leukocytosis with WBC count of 20.7 hemoglobin 13.4 electrolytes are normal BUN is 18 creatinine 1.26 blood sugar is 349. Patient was seen today on 11/22/2024, remains in the ICU, patient has extremely poor mental status, patient remains confused, does not make any purposeful conversation, is at bedside today, and she clearly notices that he is off his baseline. Patient clearly has a picture of metabolic encephalopathy not to mention he has underlying C. difficile colitis. Receiving oral vancomycin via nasogastric tube. Patient looks dehydrated hence I increase his IV fluid to 100 cc an hour, his urine output is over 100 cc/h. Patient remains on Jevity at 70 cc/h via nasogastric tube. WBC count today 16.1 hemoglobin 12.3 basic metabolic profile is normal BUN is 25 creatinine 1.32 blood sugar remains high intermittently at home as high as 388. Chest x-ray is showing bilateral airspa ce disease/infiltrates mostly in the right upper lobe and left lower lobe. Objective - Vital Signs Vital signs: Vital Signs Temp 100.8 F H 11/22/24 12:00 Pulse 128 H 11/22/24 13:00 Resp 18 11/22/24 13:00 BP 129/58 11/22/24 13:00 Pulse Ox 99 11/22/24 11:00 FiO2 Intake & Output 11/21/24 11/22/24 11/22/24 18:59 06:59 18:59 Intake Total 1530 1240 960 Output Total 2200 1485 1190 Balance -670 -245 -230 Weight 83.8 kg 83.8 kg Intake: IV 800 350 440 KVO 40 Magnesium Sulfate-D5w Pmx 100 1 gm In Dextrose/Water 1 100ml.bag @ 100 mls/hr IVPB Q1H [facility] Rx#: [id number] Piperacillin-Tazobactam 3 200 100 .375 gm In Sodium Chloride 0.9% 100 ml @ 25 mls/hr IVPB Q8HR [facility] Rx# :[id number] Sodium Chloride 0.9% 1, 400 000 ml @ 100 mls/hr IV . Q10H [facility] Rx#:[id number] Sodium Chloride 0.9% 500 250 ml 250 ml @ 999 mls/hr IV .Q16M [facility] Rx#:[id number] Sodium Chloride 0.9% 500 500 ml 500 ml @ 999 mls/hr IV .Q31M [facility] Rx#:[id number] Tube Feeding 640 840 490 Other 90 50 30 Output: Urine 2200 1485 1190 Other: Voiding Method Indwelling Catheter Indwelling Catheter Indwelling Catheter - Exam General: Revealed 69-year-old -[place] male in no distress on 2 L nasal cannula, quite confused Head: Atraumatic normocephalic EENT: PERRLA, EOMI, nonicteric no neck masses no JVD Cardiovascular: Distant S1-S2, no S3 gallop, no murmur Lungs: Crackles bilaterally no rhonchi no wheezes Abdominal: Soft nontender no rebound no guarding no tenderness. Ext: No clubbing edema or cyanosis Neuro: Difficult to assess, patient is quite confused and extremely lethargic. Psych: Confused, unable to assess - Labs CBC & Chem 7: 11/22/24 03:07 11/22/24 03:07 Labs: Abnormal Lab Results - Last 24 Hours (Table) 11/21/24 11/21/24 11/22/24 Range/Units 16:32 21:05 03:07 WBC (3.8-10.6) k/uL RBC (4.30-5.90) m/uL Hgb (13.0-17.5) gm/dL Plt Count (150-450) k/uL Neutrophils # (1.3-7.7) k/uL BUN 25 H (9-20) mg/dL Creatinine 1.32 H (0.66-1.25) mg/dL Glucose 361 H (74-99) mg/dL POC Glucose (mg/dL) 309 H 252 H (70-110) mg/dL Calcium 7.7 L (8.4-10.2) mg/dL 11/22/24 11/22/24 11/22/24 Range/Units 03:07 03:14 06:15 WBC 16.1 H (3.8-10.6) k/uL RBC 4.22 L (4.30-5.90) m/uL Hgb 12.3 L (13.0-17.5) gm/dL Plt Count 132 L (150-450) k/uL Neutrophils # 13.0 H (1.3-7.7) k/uL BUN (9-20) mg/dL Creatinine (0.66-1.25) mg/dL Glucose (74-99) mg/dL POC Glucose (mg/dL) 348 H 428 H (70-110) mg/dL Calcium (8.4-10.2) mg/dL 11/22/24 Range/Units 11:13 WBC (3.8-10.6) k/uL RBC (4.30-5.90) m/uL Hgb (13.0-17.5) gm/dL Plt Count (150-450) k/uL Neutrophils # (1.3-7.7) k/uL BUN (9-20) mg/dL Creatinine (0.66-1.25) mg/dL Glucose (74-99) mg/dL POC Glucose (mg/dL) 388 H (70-110) mg/dL Calcium (8.4-10.2) mg/dL Assessment and Plan Assessment: Impression: Acute hyperglycemia with hyperosmolar nonketotic state, resolved Acute hyponatremia secondary to above Acute metabolic encephalopathy Severe dehydration upon presentation secondary to above None anion gap metabolic acidosis, resolved Acute kidney injury secondary to hypovolemia and intravascular depletion Lactic acidosis with mild anion gap metabolic acidosis, ketones negative Mild rhabdomyolysis Electrolytes imbalance secondary to above History of substance abuse/cocaine positive on drug screen History of carotid artery stenosis History of underlying COPD History of chronic mild interstitial lung disease may eventually require CT of the chest on outpatient basis Chronic thrombocytopenia secondary to alcoholism and alcohol use Acute delirium secondary to alcohol withdrawal requiring Precedex Possible aspiration pneumonia hence Zosyn was added today. Recommendation: Continue to monitor in ICU Continue CIWA protocol Continue insulin Levemir and NovoLog insulin/sliding scale Continue Seroquel Continue DVT prophylaxis Continue GI prophylaxis Updated his on his condition Aspiration precautions, placed on Zosyn for presumptive aspiration pneumonia Will continue to follow Time with Patient: Less than 30
--- NOTE | 2024-11-22 14:01 | P.PN ---
Subjective Progress Note Date: 11/22/24 Patient was seen and examined. Confused. Tmax 100.8F over the past 24H. Antibiotics include Zosyn 3.75 g IV TID and Vancomycin 125 mg NG QID. CBC and BMP significant for WBC 16.1, RBC 4.22, Hg 12.3, Plt 132, BUN 25, Cr 1.32, glu 361, Ca 7.7. Mag 1.6. Gen: In NAD, obtunded HEENT: normocephalic, atraumatic, hearing acuity is intant, mucous membranes moist CVS: perfusing all extremities well, no pitting edema, Respiratory: symmetric chest expansion, accessory muscle use is present, diffuse wheezing and diminished lung sounds GI: soft, NTTP, ND, : no suprapubic tenderness, no CVA tenderness MSK/Derm: no rashes, cyanosis Neuro: unable to determine Based on my assessment of this patient, this patient meets a high complexity level of care. Acute metabolic encephalopathy Sepsis likely due to C. diff colitis COPD with acute exacerbation Acute hypoxic hypercapnic respiratory failure Pulmonary fibrosis Thrombocytopenia Acute kidney injury, resolving Rhabdo, resolved Cocaine positive Carotid artery stenosis Resolved: HyperK, Lactic acidosis, Rhabdo, HyperNa, Hyperosmolar hyperglycemic state Continue CIWA protocol with Ativan PRN + Seroquel 50 mg PO BID. Neurology on board, MRI brain when able. Continue Zosyn 3.75g IV TID for concerns for aspiration PNA and Vancomycin for C. diff colitis. Continue NS at 100 cc/hr, maintain MAP > 65. Levemir 10 units BID. ISS + Accuchecks ACHS with hypoglycemic precautions. Continue sodium bicarb 650 mg PO BID for metabolic acidosis by Nephrology. Nephrology, Neurology and Pulmonary on board. CODE STATUS: FULL CODE DVT Prophylaxis: SCD GI Prophylaxis: Designated medical POA if patient is not able to make medical decisions for themselves: I have reviewed the following plan consultant notes: Nephrology, Pulmonary, Neurology. I have reviewed the results of the following tests: CBC, BMP, Mag. I have ordered the following tests: I have discussed the care of this patient with the following independent historian: RN. . I have independently interpreted the following test below: I have discussed the management of this patient with the following physician: Objective - Vital Signs Vital signs: Vital Signs Temp 100.8 F H 11/22/24 12:00 Pulse 128 H 11/22/24 13:00 Resp 18 11/22/24 13:00 BP 129/58 11/22/24 13:00 Pulse Ox 99 11/22/24 11:00 FiO2 Intake & Output 11/21/24 11/22/24 11/22/24 18:59 06:59 18:59 Intake Total 1530 1240 960 Output Total 2200 1485 1190 Balance -670 -245 -230 Weight 83.8 kg 83.8 kg Intake: IV 800 350 440 KVO 40 Magnesium Sulfate-D5w Pmx 100 1 gm In Dextrose/Water 1 100ml.bag @ 100 mls/hr IVPB Q1H [facility] Rx#: [id number] Piperacillin-Tazobactam 3 200 100 .375 gm In Sodium Chloride 0.9% 100 ml @ 25 mls/hr IVPB Q8HR [facility] Rx# :[id number] Sodium Chloride 0.9% 1, 400 000 ml @ 100 mls/hr IV . Q10H [facility] Rx#:[id number] Sodium Chloride 0.9% 500 250 ml 250 ml @ 999 mls/hr IV .Q16M [facility] Rx#:[id number] Sodium Chloride 0.9% 500 500 ml 500 ml @ 999 mls/hr IV .Q31M [facility] Rx#:[id number] Tube Feeding 640 840 490 Other 90 50 30 Output: Urine 2200 1485 1190 Other: Voiding Method Indwelling Catheter Indwelling Catheter Indwelling Catheter - Labs CBC & Chem 7: 11/22/24 03:07 11/22/24 03:07 Labs: Abnormal Lab Results - Last 24 Hours (Table) 11/21/24 11/21/24 11/22/24 Range/Units 16:32 21:05 03:07 WBC (3.8-10.6) k/uL RBC (4.30-5.90) m/uL Hgb (13.0-17.5) gm/dL Plt Count (150-450) k/uL Neutrophils # (1.3-7.7) k/uL BUN 25 H (9-20) mg/dL Creatinine 1.32 H (0.66-1.25) mg/dL Glucose 361 H (74-99) mg/dL POC Glucose (mg/dL) 309 H 252 H (70-110) mg/dL Calcium 7.7 L (8.4-10.2) mg/dL 11/22/24 11/22/24 11/22/24 Range/Units 03:07 03:14 06:15 WBC 16.1 H (3.8-10.6) k/uL RBC 4.22 L (4.30-5.90) m/uL Hgb 12.3 L (13.0-17.5) gm/dL Plt Count 132 L (150-450) k/uL Neutrophils # 13.0 H (1.3-7.7) k/uL BUN (9-20) mg/dL Creatinine (0.66-1.25) mg/dL Glucose (74-99) mg/dL POC Glucose (mg/dL) 348 H 428 H (70-110) mg/dL Calcium (8.4-10.2) mg/dL 11/22/24 Range/Units 11:13 WBC (3.8-10.6) k/uL RBC (4.30-5.90) m/uL Hgb (13.0-17.5) gm/dL Plt Count (150-450) k/uL Neutrophils # (1.3-7.7) k/uL BUN (9-20) mg/dL Creatinine (0.66-1.25) mg/dL Glucose (74-99) mg/dL POC Glucose (mg/dL) 388 H (70-110) mg/dL Calcium (8.4-10.2) mg/dL
[2024-11-22 16:43] LABS: Glucose,Whole Blood 335 mg/dL (70-110)
[2024-11-22 20:04] LABS: Glucose,Whole Blood 364 mg/dL (70-110)
[2024-11-22 22:25] LABS: Glucose,Whole Blood 415 mg/dL (70-110)
[2024-11-23] MEDS: LACTATED RINGERS 1,000 ML IV ONE ×2 (00:14→06:12)
[2024-11-23 01:27] LABS: Glucose,Whole Blood 480 mg/dL (70-110)
[2024-11-23 01:27] LABS: Glucose,Whole Blood 501 mg/dL (70-110)
[2024-11-23 04:09] LABS: African American GFR (CKD) 51 (>60 ml/min/1.73 sqM); Anion Gap 8 mmol/L; Blood Urea Nitrogen 63 mg/dL (9-20); Calcium 7.6 mg/dL (8.4-10.2); Carbon Dioxide 26 mmol/L (22-30); Chloride 113 mmol/L (98-107); Magnesium 1.7 mg/dL (1.6-2.3); Non-African American GFR(CKD) 44 (>60 ml/min/1.73 sqM); Potassium 4.9 mmol/L (3.5-5.1); Sodium 147 mmol/L (137-145)
[2024-11-23 05:15] LABS: Glucose,Whole Blood 565 mg/dL (70-110)
[2024-11-23 05:20] LABS: HCT 24.1 % (39.0-53.0); Hypochromasia Marked; MCH 29.7 pg (25.0-35.0); MCHC 30.5 g/dL (31.0-37.0); MCV 97.7 fL (80.0-100.0); Platelet Count 161 k/uL (150-450); RBC 2.47 m/uL (4.30-5.90); RDW 14.5 % (11.5-15.5); WBC 18.3 k/uL (3.8-10.6)
[2024-11-23 05:26] LABS: Glucose 537 mg/dL (74-99); HGB 7.3 gm/dL (13.0-17.5)
[2024-11-23] MEDS: INSULIN ASPART (NovoLOG) 100 UNIT/ML VIAL SQ ONE ×2 (05:53→12:13)
[2024-11-23] MEDS ORDERED: Kcentra / Balfaxar PER PHARMACY 1 EACH MISC MISCELLANE PRN (07:01)
[2024-11-23 07:12] LABS: Glucose,Whole Blood 528 mg/dL (70-110)
[2024-11-23] MEDS: NOREPINEPHRINE 4 MG in SODIUM CHLORIDE 0.9% 250 ML IV SCH (07:20)
[2024-11-23] MEDS: PANTOPRAZOLE 40 MG/10 ML VIAL IVP ONE (08:18)
[2024-11-23] MEDS: CISATRACURIUM 2 MG/ML 5 ML VIAL IV ONE ×2 (08:32→08:44)
[2024-11-23] MEDS: NOREPINEPHRINE 8 MG in SODIUM CHLORIDE 0.9% 250 ML IV SCH (09:48)
--- NOTE | 2024-11-23 09:51 | P.PN ---
Subjective Patient is seen in follow-up for acute kidney injury and hypernatremia. Patient became hypotensive last night and is currently receiving fourth liter of IV fluids. He is on Levophed. Noted to have black stools with drop in hemoglobin. Intubated overnight. Vital signs -tachycardic. On vasopressor support. General: No acute distress. HEENT: Intubated. NG tube noted. LUNGS: Scattered rhonchi. HEART: Tachycardic. ABDOMEN: No distention. EXTREMITITES: No edema. Objective - Vital Signs Vital signs: Vital Signs Temp 100.2 F H 11/23/24 08:58 Pulse 135 H 11/23/24 08:58 Resp 20 11/23/24 08:58 BP 95/57 11/23/24 08:58 Pulse Ox 97 11/23/24 08:48 FiO2 100 11/23/24 07:47 Intake & Output 11/22/24 11/23/24 11/23/24 18:59 06:59 18:59 Intake Total 1600 4160 1200 Output Total 1915 1605 200 Balance -315 2555 1000 Weight 83.8 kg 86.8 kg Intake: IV 940 1400 1200 KVO 40 Piperacillin-Tazobactam 3 200 .375 gm In Sodium Chloride 0.9% 100 ml @ 25 mls/hr IVPB Q8HR [facility] Rx# :[id number] Sodium Chloride 0.9% 1, 900 1200 200 000 ml @ 100 mls/hr IV . Q10H [facility] Rx#:[id number] bolus 1000 Intake, IV Titration 2000 Amount Lactated Ringers 1,000 ml 2000 @ 999 mls/hr IV .Q1H1M [facility] Rx#:[id number] Tube Feeding 630 700 Blood Product 0 Unit 0 Other 30 60 Output: Urine 1815 1505 200 Stool 100 100 Other: Voiding Method Indwelling Catheter Indwelling Catheter - Labs CBC & Chem 7: 11/23/24 03:35 11/23/24 03:35 Labs: Abnormal Lab Results - Last 24 Hours (Table) 11/22/24 11/22/24 11/22/24 Range/Units 11:13 16:41 20:03 WBC (3.8-10.6) k/uL RBC (4.30-5.90) m/uL Hgb (13.0-17.5) gm/dL Hct (39.0-53.0) % MCHC (31.0-37.0) g/dL Sodium (137-145) mmol/L Chloride (98-107) mmol/L BUN (9-20) mg/dL Creatinine (0.66-1.25) mg/dL Glucose (74-99) mg/dL POC Glucose (mg/dL) 388 H 335 H 364 H (70-110) mg/dL Calcium (8.4-10.2) mg/dL Crossmatch 11/22/24 11/23/24 11/23/24 Range/Units 22:23 01:25 01:26 WBC (3.8-10.6) k/uL RBC (4.30-5.90) m/uL Hgb (13.0-17.5) gm/dL Hct (39.0-53.0) % MCHC (31.0-37.0) g/dL Sodium (137-145) mmol/L Chloride (98-107) mmol/L BUN (9-20) mg/dL Creatinine (0.66-1.25) mg/dL Glucose (74-99) mg/dL POC Glucose (mg/dL) 415 H 501 H* 480 H (70-110) mg/dL Calcium (8.4-10.2) mg/dL Crossmatch 11/23/24 11/23/24 11/23/24 Range/Units 03:35 03:35 05:08 WBC 18.3 H (3.8-10.6) k/uL RBC 2.47 L (4.30-5.90) m/uL Hgb 7.3 L D (13.0-17.5) gm/dL Hct 24.1 L (39.0-53.0) % MCHC 30.5 L (31.0-37.0) g/dL Sodium 147 H (137-145) mmol/L Chloride 113 H (98-107) mmol/L BUN 63 H (9-20) mg/dL Creatinine 1.58 H (0.66-1.25) mg/dL Glucose 537 H* (74-99) mg/dL POC Glucose (mg/dL) 565 H* (70-110) mg/dL Calcium 7.6 L (8.4-10.2) mg/dL Crossmatch 11/23/24 11/23/24 Range/Units 07:03 07:10 WBC (3.8-10.6) k/uL RBC (4.30-5.90) m/uL Hgb (13.0-17.5) gm/dL Hct (39.0-53.0) % MCHC (31.0-37.0) g/dL Sodium (137-145) mmol/L Chloride (98-107) mmol/L BUN (9-20) mg/dL Creatinine (0.66-1.25) mg/dL Glucose (74-99) mg/dL POC Glucose (mg/dL) 528 H* (70-110) mg/dL Calcium (8.4-10.2) mg/dL Crossmatch See Detail Assessment and Plan Plan: Assessment: 1. Acute kidney injury secondary to ATN secondary to hyperosmolar nonketotic state. Creatinine 4.48 on admission - worse today due to hypotension compared to yesterday. Creatinine 1.58. Nonoliguric. Unknown baseline renal function. No hydronephrosis noted on kidney ultrasound. UA benign. 2. Hypernatremia from lack of oral water intake. 3. Polysubstance drug abuse. 4. Metabolic encephalopathy. 5. Hyperkalemia on admission secondary to hyperglycemia. Resolved. Subsequently became hypokalemic and was replaced. 6. Hypomagnesemia from poor intake and GI losses. Replaced. 7. C. difficile colitis on oral vancomycin. 8. Metabolic acidosis secondary to GI losses. Improved. 9. Acute GI bleed scheduled to receive a unit of blood today. 10. Shock maintained on Levophed. Plan: Currently receiving fluid bolus. Also scheduled receive blood today. IV DDAVP x 1 dose today. Add maintenance fluids with half-normal saline to be run at 125 cc an hour. Wean vasopressors and FiO2. Surgery consulted for GI bleed. Continue to monitor renal function and urine output.
--- NOTE | 2024-11-23 09:56 | XR ---
EXAMINATION TYPE: XR chest 1V portable DATE OF EXAM: 11/23/2024 9:19 AM COMPARISON: None. CLINICAL INDICATION: Male, 69 years old with history of Tube placement, TECHNIQUE: XR chest 1V portable view(s) obtained. FINDINGS: The heart size is normal. The pulmonary vasculature is normal. Mild left lower lobe infiltrate is present. There is placement of an endotracheal tube with the tip 5.6 cm above the floyd. Nasogastric tube tra nsverses the thorax. IMPRESSION: 1. Mild diffuse infiltrate greatest at the left base slightly improved from comparison. 2. Post intubation with endotracheal tube tip 5.6 cm above the floyd. [facility], Workstation: [facility], 11/23/2024 9:54 AM
--- NOTE | 2024-11-23 10:26 | XR ---
EXAMINATION TYPE: XR chest 1V portable DATE OF EXAM: 11/23/2024 10:10 AM COMPARISON: 11/23/2024 CLINICAL INDICATION: Male, 69 years old with history of central line insertion, TECHNIQUE: XR chest 1V portable view(s) obtained. FINDINGS: The heart size is normal. The pulmonary vasculature is normal. Mild left lower lobe infiltrate is present. Mild right lower lobe infiltrate is present. Endotracheal tube tip is 6.3 cm above the floyd. Nasogastric tube transverses the thorax. Right central venous catheter has been adjusted between the first and second image and has its tip in the proximal superior vena cava. No pneumothorax is evident IMPRESSION: 1. Placement of a right central venous catheter with the tip in the superior vena cava region. No pne umothorax is evident. 2. Lines and catheters discussed above. 3. Mild diffuse increased lung markings [facility], Workstation: [id number], 11/23/2024 10:24 AM
[2024-11-23] MEDS: CISATRACURIUM 200 MG in SODIUM CHLORIDE 0.9% 180 ML IV SCH (11:09)
[2024-11-23 11:14] LABS: ABG Base Excess -0.6 mmol/L; ABG HCO3 25 mmol/L (21-25); ABG Oxygen Saturation >100.0 % (94-97); ABG PCO2 46 mmHg (35-45); ABG PH 7.34 (7.35-7.45); ABG PO2 397 mmHg (83-108); ABG TCO2 27 mmol/L (19-24); Allen Test Performed? Yes
[2024-11-23] MEDS: HUMAN PROTHROMBN CMPL BALFAXAR IV ONE (11:23)
[2024-11-23] MEDS: OCTREOTIDE 500 MCG in SODIUM CHLORIDE 0.9% 250 ML IV SCH (11:36)
--- NOTE | 2024-11-23 11:39 | P.GSCN ---
History of Present Illness Consult date: 11/23/24 History of present illness: CHIEF COMPLAINT: Altered mental status HISTORY OF PRESENT ILLNESS: This is a 69-year-old male who presented to hospital with altered mental status. Patient was found to be hyperglycemic with hyperosmolar nonketotic state. Patient also evidence of aspiration ammonia. He has history of alcoholism and substance abuse with cocaine. Patient started having black stools and did have a drop in his hemoglobin from 12.3-7.3. He required to be intubated today. He is received 5 L of fluid and 2 units of blood and is scheduled for his third unit of blood. He is also on Levophed. Patient has had large amount of black liquid stool, likely over a liter of black stools. He has been tachycardic. Surgical service has been consulted for STANTON handley. There is no GI service this week. Patient had been on anticoagulation in the form of Arixtra. This was discontinued. Patient is receiving multiple medications to reverse the anticoagulation. Last colonoscopy charted in 2014 had reported diverticulosis and hemorrhoids. No record of EGD. PAST MEDICAL HISTORY: See below PAST SURGICAL HISTORY: See below MEDICATIONS: See below ALLERGIES: See below SOCIAL HISTORY: No illicit drug use. REVIEW OF SYSTEMS: CONSTITUTIONAL: Denies fever or chills. HEENT: Denies blurred vision, vision changes, or eye pain. Denies hemoptysis CARDIOVASCULAR: Denies chest pain or pressure. RESPIRATORY: No shortness of breath. GASTROINTESTINAL: See HPI for pertinent findings HEMATOLOGIC: Denies bleeding disorders. GENITOURINARY: Denies any blood in urine or increased urinary frequency. SKIN: Denies pruitis. Denies rash. PHYSICAL EXAM: VITAL SIGNS: Reviewed GENERAL: no acute distress. HEENT: No sclera icterus. Extraocular movements grossly intact. Moist buccal mucosa. Head is atraumatic, normocephalic. No nasal drainage. ABDOMEN: Soft. Nondistended. Nontender NEUROLOGIC: Intubated and sedated LABORATORY DATA: WBC 18.3 Hgb 12.3 down to 7.3 platelets 161 Sodium 147 potassium 4.9 creatinine 1.58 glucose 537 magnesium 1.7 stool for occult blood positive Stool for C. difficile positive IMAGING: ASSESSMENT: 1. Acute upper GI bleed. Patient with large amount of melanotic stools. Had been on anticoagulation. PLAN: -Patient scheduled for EGD today with Dr. Hughes -Continue Protonix 40 mg IV twice daily -Patient is receiving his third unit of blood currently -Continue to monitor hemoglobin -Continue to monitor any signs or symptoms of bleeding -Transfuse as needed -Continue IV fluids -Continue ICU management -Anticoagulation has been discontinued. Patient is receiving medications to reverse anticoagulation Physician Time Piece Repairer note has been reviewed by physician. Signing provider agrees with the documented findings, assessment, and plan of care. Past Medical History Past Medical History: Chest Pain / Angina, Diabetes Mellitus, GERD/Reflux, Hypertension Additional Past Medical History / Comment(s): BACK PAIN, POSITIVE FOR BLOOD IN STOOL., SLIGHT EWIIAAPAAYP. History of Any Multi-Drug Resistant Organisms: None Reported Past Surgical History: Hernia Repair Additional Past Surgical History / Comment(s): NASAL SURGERY, RT ANKLE PINS & SCREWS. Past Anesthesia/Blood Transfusion Reactions: No Reported Reaction Past Psychological History: Depression Past Alcohol Use History: Occasional Past Drug Use History: None Reported - Past Family History Mother Family Medical History: No Reported History Medications and Allergies Home Medications Medication Instructions Recorded Confirmed Type No Known Home Medications 11/13/24 11/13/24 History Allergies Allergy/AdvReac Type Severity Reaction Status Date / Time morphine Allergy Unknown Itching Verified 11/13/24 09:47 tramadol Allergy Unknown Itching Verified 11/13/24 09:47 Surgical - Exam Vital Signs Temp Pulse Resp BP Pulse Ox 97.5 F L 113 H 20 118/68 100 11/13/24 06:37 11/13/24 06:37 11/13/24 06:37 11/13/24 06:37 11/13/24 06:37 Results - Labs 11/23/24 03:35 11/23/24 03:35 Abnormal Lab Results - Last 24 Hours (Table) 11/22/24 11/22/24 11/22/24 Range/Units 11:13 16:41 20:03 WBC (3.8-10.6) k/uL RBC (4.30-5.90) m/uL Hgb (13.0-17.5) gm/dL Hct (39.0-53.0) % MCHC (31.0-37.0) g/dL Sodium (137-145) mmol/L Chloride (98-107) mmol/L BUN (9-20) mg/dL Creatinine (0.66-1.25) mg/dL Glucose (74-99) mg/dL POC Glucose (mg/dL) 388 H 335 H 364 H (70-110) mg/dL Calcium (8.4-10.2) mg/dL Crossmatch 11/22/24 11/23/24 11/23/24 Range/Units 22:23 01:25 01:26 WBC (3.8-10.6) k/uL RBC (4.30-5.90) m/uL Hgb (13.0-17.5) gm/dL Hct (39.0-53.0) % MCHC (31.0-37.0) g/dL Sodium (137-145) mmol/L Chloride (98-107) mmol/L BUN (9-20) mg/dL Creatinine (0.66-1.25) mg/dL Glucose (74-99) mg/dL POC Glucose (mg/dL) 415 H 501 H* 480 H (70-110) mg/dL Calcium (8.4-10.2) mg/dL Crossmatch 11/23/24 11/23/24 11/23/24 Range/Units 03:35 03:35 05:08 WBC 18.3 H (3.8-10.6) k/uL RBC 2.47 L (4.30-5.90) m/uL Hgb 7.3 L D (13.0-17.5) gm/dL Hct 24.1 L (39.0-53.0) % MCHC 30.5 L (31.0-37.0) g/dL Sodium 147 H (137-145) mmol/L Chloride 113 H (98-107) mmol/L BUN 63 H (9-20) mg/dL Creatinine 1.58 H (0.66-1.25) mg/dL Glucose 537 H* (74-99) mg/dL POC Glucose (mg/dL) 565 H* (70-110) mg/dL Calcium 7.6 L (8.4-10.2) mg/dL Crossmatch 11/23/24 11/23/24 Range/Units 07:03 07:10 WBC (3.8-10.6) k/uL RBC (4.30-5.90) m/uL Hgb (13.0-17.5) gm/dL Hct (39.0-53.0) % MCHC (31.0-37.0) g/dL Sodium (137-145) mmol/L Chloride (98-107) mmol/L BUN (9-20) mg/dL Creatinine (0.66-1.25) mg/dL Glucose (74-99) mg/dL POC Glucose (mg/dL) 528 H* (70-110) mg/dL Calcium (8.4-10.2) mg/dL Crossmatch See Detail Diabetes panel 11/23/24 11/23/24 Range/Units 01:30 03:35 Sodium 147 H (137-145) mmol/L Potassium 4.3 4.9 (3.5-5.1) mmol/L Chloride 113 H (98-107) mmol/L Carbon Dioxide 26 (22-30) mmol/L BUN 63 H (9-20) mg/dL Creatinine 1.58 H (0.66-1.25) mg/dL Glucose 537 H* (74-99) mg/dL Calcium 7.6 L (8.4-10.2) mg/dL Calcium panel 11/23/24 Range/Units 03:35 Calcium 7.6 L (8.4-10.2) mg/dL Pituitary panel 11/23/24 11/23/24 Range/Units 01:30 03:35 Sodium 147 H (137-145) mmol/L Potassium 4.3 4.9 (3.5-5.1) mmol/L Chloride 113 H (98-107) mmol/L Carbon Dioxide 26 (22-30) mmol/L BUN 63 H (9-20) mg/dL Creatinine 1.58 H (0.66-1.25) mg/dL Glucose 537 H* (74-99) mg/dL Calcium 7.6 L (8.4-10.2) mg/dL Adrenal panel 11/23/24 11/23/24 Range/Units 01:30 03:35 Sodium 147 H (137-145) mmol/L Potassium 4.3 4.9 (3.5-5.1) mmol/L Chloride 113 H (98-107) mmol/L Carbon Dioxide 26 (22-30) mmol/L BUN 63 H (9-20) mg/dL Creatinine 1.58 H (0.66-1.25) mg/dL Glucose 537 H* (74-99) mg/dL Calcium 7.6 L (8.4-10.2) mg/dL
[2024-11-23 11:41] LABS: Glucose,Whole Blood 454 mg/dL (70-110)
[2024-11-23] MEDS: DESMOPRESSIN ACETATE 24 MCG in SODIUM CHLORIDE 0.9% 50 ML IVPB ONE (11:45)
[2024-11-23] MEDS: MAGNESIUM SULFATE-D5W PMX 1 GM in DEXTROSE/WATER 1 100ML.BAG IVPB ONE (12:12)
[2024-11-23] MEDS: SODIUM CHLORIDE 0.9% 2,000 ML IV ONE (12:24)
[2024-11-23] MEDS: SODIUM CHLORIDE 0.45% 1,000 ML IV SCH (12:24)
[2024-11-23] MEDS: CHLORHEXIDINE GLUCONATE 15 ML CUP MUCOUS MEM SCH (12:25)
[2024-11-23 12:48] VITALS: BMI 27.4
--- NOTE | 2024-11-23 12:49 | P.PN ---
Subjective Progress Note Date: 11/23/24 69 year old M with PMH of DM presents to the ED for altered mentation. In the ED he underwent extensive evaluation. BP 118/68, HR 113, T 97.5F, RR 20, 100% on RA. CBC, Coag panel, CMP significant for WBC 17.6, Hct 57.9, MCV 102.5, Plt 139, PT 13.7, INR 1.3, K 7.2, Cl 93, BUN 163, Cr 4.48, glu 1276, Ca 11.7. CPK 332. Lactic acid 3.8. Trop 0.027. BNP 215. UA 4+ glucose. UDS + cocaine. EtOH ng. Acetone neg. COVID, RSV, Flu neg. Legionella Ag neg. EKG sinus tachycardia with peaked T waves. Brain CT no acute pathology. CXR diffuse infiltrates. CTA head and neck < 25% stenosis R ICA, 70% stenosis L ICA, esophagitis, moderate emphysema. Patient was admitted to ICU for further workup and management. Started on insulin drip and IV hydration. Empirically started on Rocephin and Azithromycin. Nephrology, Neurology, Vascular Sx and Pulmonary consulted. With regard to findings of CTA head, vascular recommended outpatient neurointerventionalist with no indication for surgery at this time. Sodium noted to be elevated as high as 160 on 11/13 which was corrected with hypotonic fluids. Despite electrolyte correction, patient continued to be altered. He was placed on CIWA protocol and started on Precedex GTT. Concerns for osmotic demyelination syndrome given rapidity of correction. Repeat CT brain showed no acute pathology on 11/21. Neurology recommended MRI brain when stable. Started developing fever as high as 100.8F on 11/20. Also developed profuse diarrhea which was positive for C. diff. Vancomycin PO was added at that time. Zosyn added on 11/21 for concerns of Aspiration PNA. 11/23 Patient was seen and examined. Overnight, patient became hypotensive and unresponsive with BP as low as 60/50 along with large black bowel movements. Stool occult positive. Concern for upper GI bleed, 2L NS bolus was ordered along with 3 units PRBC. Surgery consulted, started on Protonix IV BID and Octreotide drip, plans for EGD this afternoon. This morning he was intubated to protect his airway. Currently on Cistracurium drip at 1 mcg/kg/min + Propofol at 15 mcg/kg/min. On Levophed drip at 0.45 mcg/kg/min. Antibiotics include Zosyn 3.375 g IV TID and Vancomycin 125 mg NGT QID. CBC and BMP significant for WBC 18.3, RBC 2.47, Hg 7.3, Hct 24.1, Na 147, Cl 113, BUN 63, Cr 1.58, glu 537, Ca 7.6. Mag 1.7. General: toxic, no distress, intubated Derm: warm, dry Head: atraumatic, normocephalic, symmetric Eyes: EOMI, no lid lag, anicteric sclera Mouth: no lip lesion, mucus membranes moist Cardiovascular: S1S2 tachy, no murmur Lungs: Coarse BS bilateral, no rhonchi, no rales , no accessory muscle use Ext: no gross muscle atrophy, no edema, no contractures Neuro: unable to determine Psych: unable to determine Based on my assessment of this patient, this patient meets a high complexity level of care. Upper GI bleed: Protonix 40 IV BID. Continue Octerotide drip at 50 mcg/hr. Transfuse 3 unit PRBC. DC Fondaparinux, PCC ordered for reversal. Surgery consulted. Hypotensive shock: Likely due to upper GI bleed. Status post 2 x 1L NS bolus. Continue NS at 100 cc/hr. Start Levophed drip and maintain MAP > 65. Acute metabolic encephalopathy: Concerns for osmotic demyelination syndrome given rapidity of correction. CIWA protocol with Ativan PRN. Seroquel 50 mg PO BID. Neurology recommends MRI brain when patient is stable. DM with hyperglycemia: Levemir 10 units BID. ISS + Accuchecks ACHS with hypoglycemic precautions. Sepsis likely due to C. diff colitis: Vancomycin 125 mg PO Q6H. Acute hypoxic respiratory failure with history of COPD and concerns for aspiration PNA: Keep NPO until mentation improved. Zosyn 3.375g IV TID for treatment of aspiration PNA. Acute kidney injury: Likely prerenal now given GI bleed. IV hydration as above. Nephrology on board. Cocaine positive: Would advise to quit. Carotid artery stenosis: Outpatient neurointerventionalist per Vascular Sx. Resolved: HyperK, Lactic acidosis, Rhabdo, HyperNa, Hyperosmolar hyperglycemic state, Thrombocytopenia CODE STATUS: FULL CODE DVT Prophylaxis: SCD GI Prophylaxis: Protonix IV BID Designated medical POA if patient is not able to make medical decisions for themselves: I have reviewed the following service delivery consultant notes: Nephrology, Pulmonary, Neurology, Surgery. I have reviewed the results of the following tests: CBC, BMP, Mag, Stool occult blood. I have ordered the following tests: Serial CBC Q6H. I have discussed the care of this patient with the following independent historian: SELINA. I have independently interpreted the following test below: I have discussed the management of this patient with the following physician: Objective - Vital Signs Vital signs: Vital Signs Temp 98.6 F 11/23/24 00:00 Pulse 137 H 11/23/24 06:00 Resp 31 H 11/23/24 06:00 BP 81/54 11/23/24 06:00 Pulse Ox 96 11/23/24 06:00 FiO2 100 11/23/24 07:47 Intake & Output 11/22/24 11/23/24 11/23/24 18:59 06:59 18:59 Intake Total 1600 4160 Output Total 1915 1605 Balance -315 2555 Weight 83.8 kg 86.8 kg Intake: IV 940 1400 KVO 40 Piperacillin-Tazobactam 3 200 .375 gm In Sodium Chloride 0.9% 100 ml @ 25 mls/hr IVPB Q8HR [facility] Rx# :[id number] Sodium Chloride 0.9% 1, 900 1200 000 ml @ 100 mls/hr IV . Q10H [facility] Rx#:[id number] Intake, IV Titration 2000 Amount Lactated Ringers 1,000 ml 2000 @ 999 mls/hr IV .Q1H1M [facility] Rx#:[id number] Tube Feeding 630 700 Other 30 60 Output: Urine 1815 1505 Stool 100 100 Other: Voiding Method Indwelling Catheter Indwelling Catheter - Labs CBC & Chem 7: 11/23/24 03:35 11/23/24 03:35 Labs: Abnormal Lab Results - Last 24 Hours (Table) 11/22/24 11/22/24 11/22/24 Range/Units 11:13 16:41 20:03 WBC (3.8-10.6) k/uL RBC (4.30-5.90) m/uL Hgb (13.0-17.5) gm/dL Hct (39.0-53.0) % MCHC (31.0-37.0) g/dL Sodium (137-145) mmol/L Chloride (98-107) mmol/L BUN (9-20) mg/dL Creatinine (0.66-1.25) mg/dL Glucose (74-99) mg/dL POC Glucose (mg/dL) 388 H 335 H 364 H (70-110) mg/dL Calcium (8.4-10.2) mg/dL Crossmatch 11/22/24 11/23/24 11/23/24 Range/Units 22:23 01:25 01:26 WBC (3.8-10.6) k/uL RBC (4.30-5.90) m/uL Hgb (13.0-17.5) gm/dL Hct (39.0-53.0) % MCHC (31.0-37.0) g/dL Sodium (137-145) mmol/L Chloride (98-107) mmol/L BUN (9-20) mg/dL Creatinine (0.66-1.25) mg/dL Glucose (74-99) mg/dL POC Glucose (mg/dL) 415 H 501 H* 480 H (70-110) mg/dL Calcium (8.4-10.2) mg/dL Crossmatch 11/23/24 11/23/24 11/23/24 Range/Units 03:35 03:35 05:08 WBC 18.3 H (3.8-10.6) k/uL RBC 2.47 L (4.30-5.90) m/uL Hgb 7.3 L D (13.0-17.5) gm/dL Hct 24.1 L (39.0-53.0) % MCHC 30.5 L (31.0-37.0) g/dL Sodium 147 H (137-145) mmol/L Chloride 113 H (98-107) mmol/L BUN 63 H (9-20) mg/dL Creatinine 1.58 H (0.66-1.25) mg/dL Glucose 537 H* (74-99) mg/dL POC Glucose (mg/dL) 565 H* (70-110) mg/dL Calcium 7.6 L (8.4-10.2) mg/dL Crossmatch 11/23/24 11/23/24 Range/Units 07:03 07:10 WBC (3.8-10.6) k/uL RBC (4.30-5.90) m/uL Hgb (13.0-17.5) gm/dL Hct (39.0-53.0) % MCHC (31.0-37.0) g/dL Sodium (137-145) mmol/L Chloride (98-107) mmol/L BUN (9-20) mg/dL Creatinine (0.66-1.25) mg/dL Glucose (74-99) mg/dL POC Glucose (mg/dL) 528 H* (70-110) mg/dL Calcium (8.4-10.2) mg/dL Crossmatch See Detail
[2024-11-23] MEDS: PANTOPRAZOLE 40 MG/10 ML VIAL IVP SCH (13:13)
--- NOTE | 2024-11-23 13:36 | P.PN ---
Subjective Progress Note Date: 11/23/24 Principal diagnosis: acute hyperglycemia with hyperosmolar nonketotic state 69-year-old male patient, diabetic, presents emerged part because of altered mentation. Immediately, the patient was noted to be hyperglycemic and had significant metabolic abnormalities consistent with hyperosmolar nonketotic state. Noted the blood sugar was measured to be at 1276. Ketones were ne gative. UA was showing plus for glucose. Urine drug screen was positive for cocaine. Viral 4 Plex was negative. In terms of the blood work, the patient's initial sodium level was at 140, potassium level was at 7.2, BUN was 163 with a creatinine of 4.48 with a anion gap of 21. Lactic acid was measured at 3.8 initially and is peaked at 5.8. LFTs were normal. CPK was 332. Troponins were negative. proBNP level was 215. Troponins were negative. Alcohol level was less than 10. Acetone was negative. The white cell count was at 17.6 with a hemoglobin of 17 and a platelet count of 139. Coagulation profile was within normal limits. Chest x-ray was done Emergency Department and it showed diffuse interstitial changes bilaterally, chronicity is unknown. CAT scan of the brain showed no evidence of any acute bleed or CVA it was consistent with mild chronic small vessel ischemic changes and there was no evidence of an acute CVA. CT angiogram of the brain showed COPD with moderate emphysematous changes in lung apices bilaterally. Less than 25% proximal right ICA stenosis, 70% left ICA disease and the [place] vertebral arteries were small in caliber. Based on all this, the patient was started on fluid resuscitation. The patient was given normal saline, a total of 2 L and subsequently the patient was started on a bicarb infusion. Urine output is adequate for now. Subsequent blood work on this patient showed drop in the creatinine down to 3.12 with a BUN of 126. Sodium level came at 160 following the correction of the blood sugar. Most recent blood sugars down to 186 as the patient is currently on insulin drip for blood sugar control. Lactic acid level is currently at 5.0. Neurologically, the patient remains altered and confused. Unable to volunteer any history. He does mumble. He is afebrile for now. He is on room air oxygen. The cardiac rhythm is sinus. Ultrasound the kidneys was done and it showed no evidence of any hydronephrosis. On 11/14/2024, the patient is being seen for a follow-up. Seems to be much more alert and awake compared to yesterday although he remains somewhat confused. Family is at the bedside. The patient is currently on insulin drip running at 4 units an hour. The patient is also on half-normal saline running at 150 cc an hour. The patient's blood work from this morning showed a sodium level of 153 with a potassium level of 4.8, bicarb is at 18 with a BUN of 110 and a creatinine of 2.9. Noted the creatinine has been gradually improving. Potassium level is also stabilized. Sodium level is improving. The white cell count is 18.9 with a hemoglobin of 16.3. The chest x-ray shows chronic coarse interstitial infiltrates probably due to chronic ILD/fibrosis. The patient remains on empiric antibiotic coverage with IV Rocephin and Zithromax. Afebrile. Hemodynamically stable on no pressors. He has already started some soft diet. Urine drug screen is positive for cocaine. On 11/15/2024, the patient is being seen for a follow-up. The patient is confused. There could be a component of alcohol withdrawal syndrome as the patient admits to drinking 1 pint of alcohol on a daily basis. Hemodynamically stable. Continues to receive fluids and the patient remains on half-normal saline at rate of 150 cc an hour. A sitter is at the bedside. No focal neurological deficits. The blood sugar control is improved. Most recent electrolytes showed a sodium level of 152, potassium level is at 4.7, chlorides 119 and bicarb level is at 20. BUN is 56 with a creatinine of 2.03. Insulin drip was discontinued and the patient was placed on Levemir insulin 10 units in addition to his sign scale coverage. The patient is awaiting to be transferred to the intensive care unit. He was seen in the emergency department this morning. He is white cell count is 11 with a heme of 14.7 and platelet count of 69. He is currently on room air oxygen with a pulse ox of 95%. No signs of any respiratory distress. On 11/16/2024, patient is still confused. Breathing is slightly more labored and the patient is also bronchospastic and wheezy. Based on that, a blood gas was obtained and the patient was found to have a pH of 7.35 with a pCO2 of 49 and pO2 of 71. Chest x-ray showing chronic interstitial pulmonary infiltrates bilaterally, could be related to an underlying chronic fibrosis and background COPD. Meanwhile, the patient continues to be resuscitated with IV fluids. The patient has been switched to D5 water which is running at a rate of 100 cc an hour and this was a total of 250 cc an hour. The patient remains on Levemir insulin 10 units twice daily and a sliding scale coverage. He remains on 2 L of oxygen by nasal cannula. Suspect delirium tremens as the patient has a vague history of alcoholism. The patient is currently on low-dose Precedex. Neurologic exam is nonfocal. The patient has a sitter at the bedside. The white cell count of 10 with a heme of 15 and a platelet count of 72. Sodium is at 155, BUN 39 with a creatinine of 1.6. CPK 736, improving. Syphilis antibodies are negative. 11/17/2024, patient is on low-dose Precedex at 0.2 mcg/kg/min. No significant agitation. Remains encephalopathic. Obviously, clinical presentation and symptoms are consistent with delirium tremens. Hemodynamically stable. Less bronchospastic and wheezy compared to yesterday. Chest x-ray is consistent with COPD and pulmonary fibrosis. The patient is currently on D5 water running at 100 cc an hour. Electrolytes from today shows sodium level of 148, BUN 32 with a creatinine of 1.6 and a potassium level of 4. The white cell count 16 with a hemoglobin 13.3 and a platelet count of 77. Remains on Levemir insulin 10 units daily and sliding scale coverage. On 11/18/2023, the patient remains delirious, still on Precedex running at 1.2 mcg/kg/h. Occasional agitation. Sitter at the bedside. Neurologic exam remains nonfocal. Afebrile. Hemodynamically stable. Remains on 2 L of oxygen by nasal cannula. Remains NPO. Sodium levels at 147 and the patient is currently on D5 water running at 75 cc an hour. The patient is also on Levemir insulin 10 units once a day. Chloride is 115. BUN 34 with a creatinine of 1.42. Blood sugar this morning is at 270. White cell count is 18 with a hemoglobin of 14.3. No other significant events overnight. No respiratory distress. Patient was seen today on 11/19/2024, patient remains on Precedex at 0.9 mcg/kg/h requiring intermittent Ativan for agitation, patient is on 2 L nasal cannula D5W at 75 cc/h patient has been doing fairly well except for intermittent agitations, patient is known to have history of alcohol abuse, polysubstance abuse including cocaine presented with hyperglycemic/hyperosmolar state, nonketotic, patient is responding well to treatment. Sodium today is 143, labs were all reviewed, patient is still not ready to be sent and he may aspirate, hence I recommended a nasogastric tube placement today for enteral feeding.WBC count is 13.5 hemoglobin 13.7 electrolytes are normal BUN is 25 creatinine 1.34 Patient was seen today on 11/20/2024 patient remains in the ICU, on 2 L nasal cannula, still requiring low-dose of Precedex at 0.3 mcg/kg/h on D5W at 75 cc/h he is also receiving vital HP via nasogastric tube 30 mL/h Seroquel was added today at 50 mg twice daily via nasogastric tube, patient continues to have intermittent episodes of agitations and restlessness, hence Seroquel was added and will continue to taper the Precedex. Patient is also receiving Ativan intermittently for agitation. CBC showed leukocytosis with WBC count of 19.3 hemoglobin is normal electrolytes showed low potassium of 3.2 bicarb is normal BUN is 18 creatinine 1.27, steadily improving since the patient came in with initial creatinine of 4.48 mentally the patient remains lethargic and confused mumbles few words, unable to understand Patient was seen today on 11/21/2024, patient remains in the ICU, he is on 2 L nasal cannula, not in any distress, patient is even off Precedex, receiving vital AF 60/60 via nasogastric tube is receiving oral vancomycin for his C. difficile colitis his chest x-ray is showing bilateral infiltrates, normal BNP level, patient has a low-grade temp of 100.3 hence I suggested and recommended t hat the patient goes on Zosyn empirically patient has been a great set up for aspiration pneumonia, and that strongly suspected. He did receive Lasix earlier today but his BNP level is normal hence no more Lasix to be given. Overall neurologically the patient had slight improvement but nonetheless remains lethargic, unable to understand the words he mumbles quite weak. Today noted to have leukocytosis with WBC count of 20.7 hemoglobin 13.4 electrolytes are normal BUN is 18 creatinine 1.26 blood sugar is 349. Patient was seen today on 11/22/2024, remains in the ICU, patient has extremely poor mental status, patient remains confused, does not make any purposeful conversation, is at bedside today, and she clearly notices that he is off his baseline. Patient clearly has a picture of metabolic encephalopathy not to mention he has underlying C. difficile colitis. Receiving oral vancomycin via nasogastric tube. Patient looks dehydrated hence I increase his IV fluid to 100 cc an hour, his urine output is over 100 cc/h. Patient remains on Jevity at 70 cc/h via nasogastric tube. WBC count today 16.1 hemoglobin 12.3 basic metabolic profile is normal BUN is 25 creatinine 1.32 blood sugar remains high intermittently at home as high as 388. Chest x-ray is showing bilateral airspa ce disease/infiltrates mostly in the right upper lobe and left lower lobe. Patient was seen today on 11/23/2024, patient is not doing well this morning, as I walked into the ICU, I was told about this patient being hypotensive, blood pressure, patient is becoming more obtunded and unresponsive to any stimuli, blood pressure apparently was 60/50 earlier this morning associated with a large black bowel movement and apparently had some upper GI bleeding with coffee- ground emesis. Stool was positive for occult. Patient received fluid boluses 2 L of normal saline were given 3 units of packed RBCs were ordered surgery was consulted patient was placed on Protonix IV push twice daily and on octreotide drip. Consulted general surgery as there is no GI coverage and the patient will likely have EGD this afternoon. I evaluated the patient and I recommended immediate intubation as the patient is obtunded and unable to protect his airways, during intubation of the patient there was significant amount of blood clots noted in the upper throat and around the vocal cords. There was no bleeding coming out of the airways. Patient was intubated uneventfully, and a size 8.0 endotracheal tube was used. In the meantime I had to place the patient on propofol and on Nimbex as he was quite restless and agitated post intubation, patient is on norepinephrine drip at 0.4 mcg/kg/min, patient remains empirically on Zosyn and he is also on oral vancomycin for his C. difficile colitis. Hemoglobin this morning was as low as 7.3 his baseline hemoglobin is about 12. ABG postintubation showed a pO2 of 397 , pCO2 46 pH of 7.34, his respiratory rate was increased. Patient's blood sugar was noted to be high at 454 and I will recommend that the patient goes on insulin drip as per protocol. Electrolytes were reviewed, sodium is elevated 147 potassium 4.9 BUN is 63 creatinine is 1.58 compared to 1.32 yesterday. Objective - Vital Signs Vital signs: Vital Signs Temp 100.0 F H 11/23/24 12:00 Pulse 116 H 11/23/24 12:45 Resp 22 11/23/24 12:45 BP 99/44 11/23/24 11:27 Pulse Ox 98 11/23/24 12:30 FiO2 50 11/23/24 12:00 Intake & Output 11/22/24 11/23/24 11/23/24 18:59 06:59 18:59 Intake Total 1600 4160 3431.794 Output Total 1915 1605 1825 Balance -315 2555 1606.794 Weight 83.8 kg 86.8 kg 86.8 kg Intake: IV 940 1400 2800 Desmopressin Acetate 24 50 mcg In Sodium Chloride 0. 9% 50 ml @ 200 mls/hr IVPB ONCE ONE Rx#: [id number] Empty Bag 1 bag @ 504 mls 100 /hr IV .Q12M ONE with Human Prothrombn Cmpl- [place] 2,320 unit Rx#: [id number] KVO 40 Magnesium Sulfate-D5w Pmx 100 1 gm In Dextrose/Water 1 100ml.bag @ 100 mls/hr IVPB Q1H [facility] Rx#: [id number] Octreotide 500 mcg In 50 Sodium Chloride 0.9% 250 ml @ 50 MCG/HR 25 mls/hr IV .Q10H [facility] Rx#: [id number] Piperacillin-Tazobactam 3 200 .375 gm In Sodium Chloride 0.9% 100 ml @ 25 mls/hr IVPB Q8HR [facility] Rx# :[id number] Sodium Chloride 0.45% 1, 300 000 ml @ 125 mls/hr IV . Q8H [facility] Rx#:[id number] Sodium Chloride 0.9% 1, 900 1200 200 000 ml @ 100 mls/hr IV . Q10H [facility] Rx#:[id number] bolus 2000 Intake, IV Titration 2000 65.794 Amount Cisatracurium 200 mg In 6.163 Sodium Chloride 0.9% 180 ml @ 1 MCG/KG/MIN 5.208 mls/hr IV .Q24H [facility] Rx#: [id number] Lactated Ringers 1,000 ml 2000 @ 999 mls/hr IV .Q1H1M ONE Rx#:[id number] Norepinephrine 4 mg In 16.535 Sodium Chloride 0.9% 250 ml @ 0.03 MCG/KG/MIN 9. 921 mls/hr IV .Q24H [facility] Rx#:[id number] propofoL 1,000 mg In 43.096 Empty Bag 1 bag @ 15 MCG/ KG/MIN 7.812 mls/hr IV . [id number] [facility] Rx#:[id number] Tube Feeding 630 700 Blood Product 566 Rc Pheresis 2 As3 Unit 288 [id number] Rc Pheresis 2 As3 Unit 278 [id number] Rc Pheresis As-3 Unit 0 [id number] Other 30 60 Output: Gastric Drainage 900 Urine 1815 1505 625 Stool 100 100 300 Other: Voiding Method Indwelling Catheter Indwelling Catheter ABP, PAP, CO, CI - Last Documented Arterial Blood Pressure 105/45 - Exam General: Revealed 69-year-old -[place] male obtunded, unresponsive to stimuli except withdrawing to pain. Patient is obviously unable to protect his airways hence I recommended immediate intubation. Head: Atraumatic normocephalic EENT: PERRLA, EOMI, nonicteric no neck masses no JVD Cardiovascular: Distant S1-S2, no S3 gallop, no murmur Lungs: Crackles bilaterally no rhonchi no wheezes Abdominal: Soft nontender no rebound no guarding no tenderness. Ext: No clubbing edema or cyanosis Neuro: Obtunded, does not follow any instructions, unable to protect his airways, required immediate intubation. Psych: Could not assess - Labs CBC & Chem 7: 11/23/24 03:35 11/23/24 03:35 Labs: Abnormal Lab Results - Last 24 Hours (Table) 11/22/24 11/22/24 11/22/24 Range/Units 16:41 20:03 22:23 WBC (3.8-10.6) k/uL RBC (4.30-5.90) m/uL Hgb (13.0-17.5) gm/dL Hct (39.0-53.0) % MCHC (31.0-37.0) g/dL ABG pH (7.35-7.45) ABG pCO2 (35-45) mmHg ABG pO2 (83-108) mmHg ABG Total CO2 (19-24) mmol/L ABG O2 Saturation (94-97) % Hemoglobin (13.0-17.5) gm/dL Sodium (137-145) mmol/L Chloride (98-107) mmol/L BUN (9-20) mg/dL Creatinine (0.66-1.25) mg/dL Glucose (74-99) mg/dL POC Glucose (mg/dL) 335 H 364 H 415 H (70-110) mg/dL Calcium (8.4-10.2) mg/dL Crossmatch 11/23/24 11/23/24 11/23/24 Range/Units 01: 01:26 03:35 WBC (3.8-10.6) k/uL RBC (4.30-5.90) m/uL Hgb (13.0-17.5) gm/dL Hct (39.0-53.0) % MCHC (31.0-37.0) g/dL ABG pH (7.35-7.45) ABG pCO2 (35-45) mmHg ABG pO2 (83-108) mmHg ABG Total CO2 (19-24) mmol/L ABG O2 Saturation (94-97) % Hemoglobin (13.0-17.5) gm/dL Sodium 147 H (137-145) mmol/L Chloride 113 H (98-107) mmol/L BUN 63 H (9-20) mg/dL Creatinine 1.58 H (0.66-1.25) mg/dL Glucose 537 H* (74-99) mg/dL POC Glucose (mg/dL) 501 H* 480 H (70-110) mg/dL Calcium 7.6 L (8.4-10.2) mg/dL Crossmatch 11/23/24 11/23/24 11/23/24 Range/Units 03:35 05:08 07:03 WBC 18.3 H (3.8-10.6) k/uL RBC 2.47 L (4.30-5.90) m/uL Hgb 7.3 L D (13.0-17.5) gm/dL Hct 24.1 L (39.0-53.0) % MCHC 30.5 L (31.0-37.0) g/dL ABG pH (7.35-7.45) ABG pCO2 (35-45) mmHg ABG pO2 (83-108) mmHg ABG Total CO2 (19-24) mmol/L ABG O2 Saturation (94-97) % Hemoglobin (13.0-17.5) gm/dL Sodium (137-145) mmol/L Chloride (98-107) mmol/L BUN (9-20) mg/dL Creatinine (0.66-1.25) mg/dL Glucose (74-99) mg/dL POC Glucose (mg/dL) 565 H* (70-110) mg/dL Calcium (8.4-10.2) mg/dL Crossmatch See Detail 11/23/24 11/23/24 11/23/24 Range/Units 07:10 11:06 11:39 WBC (3.8-10.6) k/uL RBC (4.30-5.90) m/uL Hgb (13.0-17.5) gm/dL Hct (39.0-53.0) % MCHC (31.0-37.0) g/dL ABG pH 7.34 L (7.35-7.45) ABG pCO2 46 H (35-45) mmHg ABG pO2 397 H (83-108) mmHg ABG Total CO2 27 H (19-24) mmol/L ABG O2 Saturation >100.0 H (94-97) % Hemoglobin 7.3 L (13.0-17.5) gm/dL Sodium (137-145) mmol/L Chloride (98-107) mmol/L BUN (9-20) mg/dL Creatinine (0.66-1.25) mg/dL Glucose (74-99) mg/dL POC Glucose (mg/dL) 528 H* 454 H (70-110) mg/dL Calcium (8.4-10.2) mg/dL Crossmatch Assessment and Plan Assessment: Impression: Acute hypoxic respiratory failure secondary to hypovolemic shock and acute GI bleeding requiring intubation mechanical ventilation with profound hypotension requiring pressors and blood products. Acute hyperglycemia with hyperosmolar nonketotic state, on his initial presentation Acute metabolic encephalopathy, did not improve even from day one of his a dmission actually got worse today to the point of requiring intubation mechanical ventilation. Severe dehydration upon presentation secondary to above Acute kidney injury secondary to hypovolemia and intravascular depletion, and also related to hypotension Mild rhabdomyolysis History of substance abuse/cocaine positive on drug screen History of carotid artery stenosis History of underlying COPD History of chronic mild interstitial lung disease may eventually require CT of the chest on outpatient basis Chronic thrombocytopenia secondary to alcoholism and alcohol use Acute delirium secondary to alcohol withdrawal required Precedex for few days Possible aspiration pneumonia hence Zosyn was added today. Recommendation: Continue ventilatory support continue hemodynamic support Transfuse with at least 3 units of packed RBCs Continue octreotide Continue pantoprazole Start patient on insulin drip as his blood sugars seem to be quite high Continue close monitoring of his blood sugars and treat as per DKA protocol Address nutritional support in the next 24 hours Surgery was consulted, patient may have EGD this afternoon Prognosis is extremely poor and guarded Continue aspiration precautions Continue Zosyn Patient is critically ill Critical care time is over 30 minutes not including the time spent on procedures Will continue to follow Time with Patient: Greater than 30
[2024-11-23 13:42] LABS: Glucose,Whole Blood 447 mg/dL (70-110)
[2024-11-23] MEDS: VASOPRESSIN 60 UNIT in SODIUM CHLORIDE 0.9% 150 ML IV SCH (13:58)
[2024-11-23] MEDS: INSULIN REGULAR 100 UNIT in SODIUM CHLORIDE 0.9% 100 ML IV SCH (14:03)
[2024-11-23 14:08] LABS: African American GFR (CKD) 44 (>60 ml/min/1.73 sqM); Anion Gap 5 mmol/L; Blood Urea Nitrogen 66 mg/dL (9-20); Carbon Dioxide 29 mmol/L (22-30); Chloride 118 mmol/L (98-107); Glucose 439 mg/dL (74-99); Non-African American GFR(CKD) 38 (>60 ml/min/1.73 sqM); Phosphorus 4.5 mg/dL (2.5-4.5); Potassium 4.3 mmol/L (3.5-5.1); Sodium 152 mmol/L (137-145)
[2024-11-23 14:31] LABS: Anisocytosis Slight; Basophils # (A) 0.1 k/uL (0-0.2); Basophils % (A) 0 %; Eosinophils % (A) 0 %; HCT 27.8 % (39.0-53.0); Hypochromasia Slight; Lymphocytes # (A) 2.5 k/uL (1.0-4.8); Lymphocytes % (A) 8 %; MCH 30.4 pg (25.0-35.0); MCHC 33.5 g/dL (31.0-37.0); Mean Platelet Volume 10.5; Monocytes # (A) 1.4 k/uL (0-1.0); Monocytes % (A) 5 %; Neutrophils # (A) 26.4 k/uL (1.3-7.7); Neutrophils % (A) 86 %; Platelet Count 164 k/uL (150-450); RBC 3.06 m/uL (4.30-5.90); RDW 16.1 % (11.5-15.5)
[2024-11-23 14:41] LABS: HGB 9.3 gm/dL (13.0-17.5); WBC 30.7 k/uL (3.8-10.6)
[2024-11-23 14:42] LABS: MCV 90.8 fL (80.0-100.0)
[2024-11-23 15:10] LABS: Large Platelets Present
[2024-11-23 15:12] LABS: Glucose,Whole Blood 410 mg/dL (70-110)
[2024-11-23 15:27] LABS: INR 1.1 (<1.2); Prothrombin Time 11.7 sec (10.0-12.5)
[2024-11-23 16:02] LABS: Glucose,Whole Blood 377 mg/dL (70-110)
[2024-11-23 16:37] LABS: Glucose,Whole Blood 351 mg/dL (70-110)
[2024-11-23 17:32] LABS: Glucose,Whole Blood 303 mg/dL (70-110)
[2024-11-23] MEDS: SODIUM CHLORIDE 0.9% 1,000 ML IV SCH ×2 (18:03→23:12)
--- NOTE | 2024-11-23 18:09 | CA ---
Transthoracic Echo Report Name: Audi Quinones Age: 69 Gender: M : 1955 Exam Date: 11/23/2024 12:40 Exam Location: [facility] Ht (in): Wt (lb): Ordering Physician: Nancy Grimm Attending/Referring Phys: Gyroscope Technician Kayleigh Dawson RDCS Procedure CPT: Indications: ? atrial thrombus Cardiac Hx: Technical Quality: Fair Contrast 1: Total Dose (mL): Contrast 2: Total Dose (mL): MEASUREMENTS (Male / Female) Normal Values 2D ECHO LV Diastolic Diameter PLAX 3.8 cm 4.2 - 5.9 / 3.9 - 5.3 cm LV Systolic Diameter PLAX 1.7 cm IVS Diastolic Thickness 1.2 cm 0.6 - 1.0 / 0.6 - 0.9 cm LVPW Diastolic Thickness 1.4 cm 0.6 - 1.0 / 0.6 - 0.9 cm LV Relative Wall Thickness 0.7 RV Internal Dim ED PLAX 1.5 cm LA Systolic Diameter LX 3.4 cm 3.0 - 4.0 / 2.7 - 3.8 cm LA Volume 28.4 cm??? 18 - 58 / 22 - 52 cm??? M-MODE Aortic Root Diameter MM 3.4 cm LA Systolic Diameter MM 3.7 cm LA Ao Ratio MM 1.1 AV Cusp Separation MM 1.8 cm DOPPLER AV Peak Velocity 170.5 cm/s AV Peak Gradient 11.6 mmHg LVOT Peak Velocity 191.0 cm/s LVOT Peak Gradient 14.6 mmHg MV Area PHT 3.0 cm??? Mitral E Point Velocity 54.0 cm/s Mitral A Point Velocity 75.0 cm/s Mitral E to A Ratio 0.7 MV Deceleration Time 253.3 ms FINDINGS Left Ventricle Left ventricular ejection fraction is estimated at 55-60 %.Normal left ventricular systolic function with no obvious regional wall motion abnormalities. Mildly increased left ventricular wall thickness. Left ventricular cavity size normal. Right Ventricle Normal right ventricular size and function. Unable to estimate the right ventricular systolic pressure. Right Atrium Normal right atrial size. Left Atrium Normal left atrial size. Mitral Valve Structurally normal mitral valve. Mild mitral regurgitation. No mitral stenosis. Aortic Valve Trileaflet aortic valve. No aortic valve stenosis or regurgitation. Tricuspid Valve Structurally normal tricuspid valve. Trace tricuspid regurgitation. Pulmonic Valve Structurally normal pulmonic valve. No pulmonic stenosis. Pericardium Left pleural effusion. Aorta Normal size aortic root and proximal ascending aorta. CONCLUSIONS 1. Normal left ventricular size and systolic function 2. Mild mitral and trace tricuspid regurgitation Previewed by: Dr. Nacho Oseguera MD (Electronically Signed) Final Date: 23 November 2024 18:08
[2024-11-23 18:15] LABS: Glucose,Whole Blood 266 mg/dL (70-110)
[2024-11-23] MEDS: D5-0.45% NACL WITH KCL 20MEQ/L 1,000 ML IV SCH (18:18)
[2024-11-23 19:08] LABS: African American GFR (CKD) 46 (>60 ml/min/1.73 sqM); Anion Gap 2 mmol/L; Blood Urea Nitrogen 59 mg/dL (9-20); Carbon Dioxide 29 mmol/L (22-30); Chloride 122 mmol/L (98-107); Glucose 266 mg/dL (74-99); Non-African American GFR(CKD) 39 (>60 ml/min/1.73 sqM); Phosphorus 2.7 mg/dL (2.5-4.5); Potassium 3.5 mmol/L (3.5-5.1); Sodium 153 mmol/L (137-145)
[2024-11-23 19:09] LABS: Glucose,Whole Blood 250 mg/dL (70-110)
--- NOTE | 2024-11-23 19:38 | OP ---
OPERATIVE REPORT DATE OF SERVICE : PROCEDURE: Placement of a right femoral arterial line. PREOPERATIVE DIAGNOSES: Acute gastrointestinal bleeding, hypotension, and respiratory failure. POSTOPERATIVE DIAGNOSES: Acute gastrointestinal bleeding, hypotension, and respiratory failure. ANESTHESIA USED: None deployed. DESCRIPTION OF PROCEDURE: The right groin was prepared in a sterile fashion. Drapes were applied. The right femoral artery was palpated, cannulated, and a guidewire was placed. A femoral catheter was placed over the guidewire, and the guidewire was removed. Good blood flow, good waveform, no complications. Line was secured using 3-0 silk sutures. MMODL / IJN: [id number] /
--- NOTE | 2024-11-23 19:44 | OP ---
OPERATIVE REPORT DATE OF SERVICE : PROCEDURE: Placement of the right subclavian triple-lumen catheter. PREOPERATIVE DIAGNOSES: Acute gastrointestinal bleeding and hypotension, needed central line access for blood transfusion. This was done on emergent basis. DESCRIPTION OF PROCEDURE: The patient was placed in Trendelenburg position, the right subclavian area was prepared in a sterile fashion. Drapes were applied. The area was locally anesthetized with lidocaine, then using the infraclavicular approach, the right subclavian vein was cannulated, and a guidewire was placed. A triple-lumen catheter was inserted over the guidewire, and the guidewire was removed. However, there was slight resistance upon removing the guidewire. The line was secured and chest x-ray showed basically looping of the triple-lumen catheter in the right atrium and this was addressed accordingly by pulling the wire about 5 cm and the wire was noted after with a followup chest x-ray noted to be in the SVC. The procedure was well tolerated, no complications, line was secured using 3-0 silk sutures. MMODL / IJN: [id number] /
--- NOTE | 2024-11-23 19:47 | OP ---
OPERATIVE REPORT DATE OF SERVICE : PROCEDURE PERFORMED: Intubation and mechanical ventilation. PREOPERATIVE DIAGNOSES: 1. Acute hypoxic respiratory failure. 2. Obtundation. 3. Extensive GI bleeding. 4. Hypotension. POSTOPERATIVE DIAGNOSES: 1. Acute hypoxic respiratory failure. 2. Obtundation. 3. Extensive GI bleeding. 4. Hypotension. ANESTHESIA USED: Nimbex 10 mg IV push and propofol 50 mg IV push. DESCRIPTION OF PROCEDURE: The patient was placed in the supine position, the GlideScope was used, the tongue was depressed and elevated, and I was able to visualize the vocal cords quite clearly. There were some blood clots over the vocal cords, and these were suctioned easily, and then I was able to insert a size 8.0 endotracheal tube with direct visualization of the vocal cords using a 4.0 blade. Tube was advanced through the vocal cords without any difficulty, and as it moved beyond the vocal cords, that stylet was removed and the tube was advanced further down. There was a color change, and cuff was inflated, the patient was connected to mechanical ventilation, chest x-ray postoperatively showed adequate placement of the endotracheal tube. The procedure was well tolerated. MMODL / IJN: [id number] /
[2024-11-23 20:24] LABS: Glucose,Whole Blood 235 mg/dL (70-110)
[2024-11-23 21:16] LABS: Glucose,Whole Blood 223 mg/dL (70-110)
[2024-11-23 23:03] LABS: Glucose,Whole Blood 197 mg/dL (70-110)
[2024-11-23 23:09] VITALS: TEMP 98.8
[2024-11-23 23:15] VITALS: BP 146/62
[2024-11-23] MEDS: POTASSIUM CHLORIDE 20 MEQ in WATER FOR INJECTION 1 100ML.BAG IVPB SCH (23:55)
[2024-11-24 00:03] LABS: Glucose,Whole Blood 182 mg/dL (70-110)
[2024-11-24 00:17] LABS: HCT 36.5 % (39.0-53.0); MCH 30.4 pg (25.0-35.0); MCHC 33.7 g/dL (31.0-37.0); MCV 90.3 fL (80.0-100.0); Mean Platelet Volume 9.8; Platelet Count 134 k/uL (150-450); Poikilocytosis Slight; RBC 4.04 m/uL (4.30-5.90); RDW 15.2 % (11.5-15.5); WBC 29.2 k/uL (3.8-10.6)
[2024-11-24 00:32] LABS: HGB 12.3 gm/dL (13.0-17.5)
[2024-11-24 00:35] LABS: African American GFR (CKD) 51 (>60 ml/min/1.73 sqM); Anion Gap 1 mmol/L; Blood Urea Nitrogen 49 mg/dL (9-20); Carbon Dioxide 28 mmol/L (22-30); Chloride 124 mmol/L (98-107); Glucose 199 mg/dL (74-99); Non-African American GFR(CKD) 44 (>60 ml/min/1.73 sqM); Potassium 3.7 mmol/L (3.5-5.1); Sodium 153 mmol/L (137-145)
[2024-11-24 01:02] LABS: Glucose,Whole Blood 172 mg/dL (70-110)
[2024-11-24 01:21] VITALS: RESP 22
[2024-11-24 02:27] LABS: Glucose,Whole Blood 168 mg/dL (70-110)
[2024-11-24 03:11] VITALS: PULSE 73
[2024-11-24 03:11] LABS: Glucose,Whole Blood 153 mg/dL (70-110)
[2024-11-24 04:07] LABS: Glucose,Whole Blood 151 mg/dL (70-110)
--- NOTE | 2024-11-24 06:52 | P.DS ---
Providers Date of admission: 11/13/24 10:11 Expected date of discharge: 11/24/24 Attending physician: Dustin Morrissey Consults: 11/13/24 09:18 Consult Physician Routine Consulting Provider: Angeline Mcgraw Consult Reason/Comments: acute renal failure, hyperkalemia Do you want consulting provider notified?: Yes Consult Physician Urgent Consulting Provider: Juancarlos Kraft Consult Reason/Comments: HHS, AMS, Hyperkalemia, Acute renal failure, pneumonia Do you want consulting provider notified?: Yes 11/13/24 09:19 Consult Physician Routine Consulting Provider: Sherice Giles Consult Reason/Comments: stroke activation, AMS Do you want consulting provider notified?: Yes 11/23/24 06:51 Consult Physician Stat Consulting Provider: Bran De Dios Consult Reason/Comments: GIB Do you want consulting provider notified?: Yes 11/23/24 08:46 Consult Physician Stat Consulting Provider: Oral Polk Consult Reason/Comments: gi bleed/no coverage this week Do you want consulting provider notified?: Yes Primary care physician: [facility] Hospital Course: 69 year old M with PMH of DM presents to the ED for altered mentation. In the ED he underwent extensive evaluation. BP 118/68, HR 113, T 97.5F, RR 20, 100% on RA. CBC, Coag panel, CMP significant for WBC 17.6, Hct 57.9, MCV 102.5, Plt 139, PT 13.7, INR 1.3, K 7.2, Cl 93, BUN 163, Cr 4.48, glu 1276, Ca 11.7. CPK 332. Lactic acid 3.8. Trop 0.027. BNP 215. UA 4+ glucose. UDS + cocaine. EtOH ng. Acetone neg. COVID, RSV, Flu neg. Legionella Ag neg. EKG sinus tachycardia with peaked T waves. Brain CT no acute pathology. CXR diffuse infiltrates. CTA head and neck < 25% stenosis R ICA, 70% stenosis L ICA, esophagitis, moderate emphysema. Patient was admitted to ICU for further workup and management. Started on insulin drip and IV hydration. Empirically started on Rocephin and Azithromycin for concerns of PNA. Nephrology, Neurology, Vascular Sx and Pulmonary consulted. With regard to findings of CTA head, vascular recommended outpatient neurointerventionalist with no indication for surgery at this time. Sodium noted to be elevated as high as 160 on 11/13 which was corrected with hypotonic fluids. Despite electrolyte correction, patient continued to be altered and combative. He was placed on CIWA protocol and started on Precedex GTT. Concerns for osmotic demyelination syndrome given rapidity of correction. Repeat CT brain showed no acute pathology on 11/21. Neurology recommended MRI brain when stable. Started developing fever as high as 100.8F on 11/20. Also developed profuse diarr hea which was positive for C. diff. Vancomycin PO was added at that time. Zosyn added on 11/21 for concerns of Aspiration PNA. 11/23 Patient was seen and examined. Overnight, patient became hypotensive and unresponsive with BP as low as 60/50 along with large black bowel movements. Stool occult positive. Concern for upper GI bleed, 2L NS bolus was ordered along with 3 units PRBC. Surgery consulted, started on Protonix IV BID and Octreotide drip, plans for EGD this afternoon. This morning he was intubated to protect his airway. Currently on Cistracurium drip at 1 mcg/kg/min + Propofol at 15 mc g/kg/min. On Levophed drip at 0.45 mcg/kg/min. Antibiotics include Zosyn 3.375 g IV TID and Vancomycin 125 mg NGT QID. CBC and BMP significant for WBC 18.3, RBC 2.47, Hg 7.3, Hct 24.1, Na 147, Cl 113, BUN 63, Cr 1.58, glu 537, Ca 7.6. Mag 1.7. Patient underwent EGD showing multiple non bleeding varicies. Discussed with Dr. Hughes, recommending transfer for GI evaluation. Accepted at [facility] and patient transferred on 11/24. Patient was not seen by me prior to transfer. Discharge Diagnosis: Upper GI bleed secondary to esophageal varicies Hypotensive shock Acute metabolic encephalopathy DM with hyperglycemia Sepsis likely due to C. diff colitis Acute hypoxic respiratory failure with history of COPD and concerns for aspiration PNA Acute kidney injury Cocaine positive Carotid artery stenosis Resolved: HyperK, Lactic acidosis, Rhabdo, HyperNa, Hyperosmolar hyperglycemic state, Thrombocytopenia Patient Condition at Discharge: Critical Plan - Discharge Summary Discharge Rx Participant: Yes New Discharge Prescriptions: No Action No Known Home Medications Discharge Medication List No Known Home Medications 11/13/24 [History] Follow up Appointment(s)/Referral(s): [facility] [Primary Care Provider] - 1-2 days Patient Instructions/Handouts: Seizure/Epilepsy Discharge Instructions & Follow-Up Discharge Disposition: OTHER INSTITUTION NOT DEFINED
== END 2024-11-24 04:30 | disposition short-term general hospital (02) | DRG 637 ==
LOC: EC 06:35 → 2SICU 10:11
PROVIDERS: ADMIT Student in an Organized Health Care Education/Training Program; ATTEND Student in an Organized Health Care Education/Training Program
PROC: 3E0G76Z Introduction of Nutritional Substance into Upper GI, Via Natural or Artificial Opening (ICD-10-PCS; 2024-11-19)
PROC: 04HY32Z Insertion of Monitoring Device into Lower Artery, Percutaneous Approach (ICD-10-PCS; 2024-11-23)
PROC: 4A133B1 Monitoring of Arterial Pressure, Peripheral, Percutaneous Approach (ICD-10-PCS; 2024-11-23)
PROC: 4A133J1 Monitoring of Arterial Pulse, Peripheral, Percutaneous Approach (ICD-10-PCS; 2024-11-23)
PROC: 05H533Z Insertion of Infusion Device into Right Subclavian Vein, Percutaneous Approach (ICD-10-PCS; 2024-11-23)
PROC: 3E033XZ Introduction of Vasopressor into Peripheral Vein, Percutaneous Approach (ICD-10-PCS; 2024-11-23)
PROC: 0BH18EZ Insertion of Endotracheal Airway into Trachea, Via Natural or Artificial Opening Endoscopic (ICD-10-PCS; 2024-11-23)
PROC: 5A1935Z Respiratory Ventilation, Less than 24 Consecutive Hours (ICD-10-PCS; principal; 2024-11-23 07:30)
DX: E11.00 Type 2 diabetes mellitus with hyperosmolarity without nonketotic hyperglycemic-hyperosmolar coma (NKHHC) (principal); A41.89 Other specified sepsis; N17.0 Acute kidney failure with tubular necrosis; J69.0 Pneumonitis due to inhalation of food and vomit; J96.01 Acute respiratory failure with hypoxia; J96.02 Acute respiratory failure with hypercapnia; G93.41 Metabolic encephalopathy; R57.1 Hypovolemic shock; A04.72 Enterocolitis due to Clostridium difficile, not specified as recurrent; F10.231 Alcohol dependence with withdrawal delirium; M62.82 Rhabdomyolysis; E87.29 Other acidosis; E87.0 Hyperosmolality and hypernatremia; J84.9 Interstitial pulmonary disease, unspecified; E87.1 Hypo-osmolality and hyponatremia; I65.01 Occlusion and stenosis of right vertebral artery; Z78.1 Physical restraint status; F14.10 Cocaine abuse, uncomplicated; J84.10 Pulmonary fibrosis, unspecified; D69.59 Other secondary thrombocytopenia; J43.9 Emphysema, unspecified; I65.23 Occlusion and stenosis of bilateral carotid arteries; I10 Essential (primary) hypertension; E86.0 Dehydration; E87.5 Hyperkalemia; H91.90 Unspecified hearing loss, unspecified ear; E87.6 Hypokalemia; E83.42 Hypomagnesemia; E86.1 Hypovolemia; T38.3X6A Underdosing of insulin and oral hypoglycemic [antidiabetic] drugs, initial encounter; Z91.148 Patient's other noncompliance with medication regimen for other reason
CPT/HCPCS: 36410; 36415; 36600; 43235; 51702; 51798; 70450; 70496; 70498; 71045; 76770; 76937; 80048; 80051; 80053; 80061; 80076; 80306; 80320; 81003; 82009; 82140; 82272; 82550; 82565; 82607; 82746; 82803; 82805; 82947; 83036; 83605; 83615; 83735; 83880; 83930; 83935; 84100; 84132; 84295; 84443; 84484; 84520; 85025; 85027; 85610; 85730; 86140; 86780; 86850; 86900; 86901; 86920; 87040; 87070; 87205; 87324; 87449; 87636; 93005; 93306; 94003; 94640; 96361; 96365; 96366; 96367; 96375; 96376; 99291

== ENCOUNTER 2024-12-25 18:23 | Inpatient (IN) | payer MEDICARE ==
[2024-12-25] MEDS: SODIUM CHLORIDE 0.9% 1,000 ML IV STA (18:58)
[2024-12-25 19:01] LABS: Basophils # (A) 0.1 k/uL (0-0.2); Basophils % (A) 1 %; Eosinophils # (A) 0.1 k/uL (0-0.7); Eosinophils % (A) 0 %; HCT 36.7 % (39.0-53.0); HGB 10.6 gm/dL (13.0-17.5); Hypochromasia Marked; Lymphocytes # (A) 1.1 k/uL (1.0-4.8); Lymphocytes % (A) 5 %; Macrocytosis Slight; Monocytes # (A) 1.1 k/uL (0-1.0); Monocytes % (A) 5 %; Neutrophils % (A) 88 %; Platelet Count 266 k/uL (150-450); Poikilocytosis Slight; RBC 3.67 m/uL (4.30-5.90); RDW 15.8 % (11.5-15.5)
[2024-12-25 19:02] LABS: VBG PH 7.21 (7.31-7.41)
[2024-12-25 19:10] LABS: Glucose,Whole Blood >600 mg/dL (70-110)
[2024-12-25 19:11] LABS: MCV 99.9 fL (80.0-100.0)
[2024-12-25 19:15] LABS: INR 1.1 (<1.2); Partial Thromboplastin Time 28.3 sec (22.0-30.0); Prothrombin Time 11.6 sec (10.0-12.5)
[2024-12-25 19:33] LABS: Lactic Acid, Venous 2.5 mmol/L (0.7-2.0)
[2024-12-25] MEDS: SODIUM CHLORIDE 0.9% 1,000 ML IV ONE (19:37)
[2024-12-25 19:45] LABS: ALT 17 U/L (4-49); AST 17 U/L (17-59); African American GFR (CKD) 32 (>60 ml/min/1.73 sqM); Albumin 2.7 g/dL (3.5-5.0); Alkaline Phosphatase 136 U/L (38-126); Anion Gap 11 mmol/L; Blood Urea Nitrogen 43 mg/dL (9-20); Calcium 9.2 mg/dL (8.4-10.2); Carbon Dioxide 14 mmol/L (22-30); Chloride 103 mmol/L (98-107); Magnesium 1.4 mg/dL (1.6-2.3); Non-African American GFR(CKD) 28 (>60 ml/min/1.73 sqM); Sodium 128 mmol/L (137-145); Total Bilirubin 0.7 mg/dL (0.2-1.3); Total Protein 6.6 g/dL (6.3-8.2)
--- NOTE | 2024-12-25 19:52 | CT ---
EXAMINATION TYPE: CT brain wo con DATE OF EXAM: 12/25/2024 7:24 PM COMPARISON: 11/21/2024. CLINICAL INDICATION: Male, 69 years old with history of weakness, AMS TECHNIQUE: Brain: Axial CT images of the brain were obtained with coronal and sagittal reformats created and rev iewed. Contrast used: None. Oral contrast used: None. CT DLP: 1055.4 mGycm, Automated exposure control for dose reduction was used. FINDINGS: Brain: Extra-axial spaces: No abnormal extra-axial fluid collections. Ventricular system: Dilatation in proportion to cerebral atrophy. Cerebral parenchyma: Cerebral atrophy. No acute intraparenchymal hemorrhage or mass effect. The munguia -white junction is well differentiated. Scattered hypoattenuating areas are seen within the white mat ter. Cerebellum: Unremarkable. Mass effect: No evidence of midline shift. Intracranial vasculature: Atherosclerotic calcifications of the intracranial vessels. Soft tissues: Normal. Calvarium/osseous structures: No depressed skull fracture. Paranasal sinuses and mastoid air cells: Mild scattered paranasal sinus disease. Visualized orbits: Orbital contents are intact. IMPRESSION: 1. No acute intracranial process. 2. Nonspecific white matter changes, likely secondary to chronic small vessel ischemic disease. [facility], , 12/25/2024 7:50 PM
--- NOTE | 2024-12-25 19:54 | XR ---
EXAMINATION TYPE: XR chest 2V DATE OF EXAM: 12/25/2024 7:28 PM COMPARISON: Chest radiographs from 11/23/2024. CLINICAL INDICATION: Male, 69 years old with history of Weakness; PHH TECHNIQUE: XR chest 2V Frontal and lateral views of the chest. FINDINGS: Lungs/Pleura: Multifocal airspace opacities. No evidence of pneumothorax or pleural effusion. Pulmonary vascularity: Unremarkable. Heart/mediastinum: Cardiomediastinal silhouette is unremarkable. Musculoskeletal: No acute osseous pathology. IMPRESSION: Multifocal airspace opacities correlate for pneumonia. Correlate with serum BNP to exclude pulmonary edema. [facility], , 12/25/2024 7:52 PM
[2024-12-25 20:07] LABS: Influenza A Not Detected (Not Detectd); Influenza B Not Detected (Not Detectd); RSV Not Detected (Not Detectd)
[2024-12-25 20:10] LABS: Glucose 951 mg/dL (74-99); Potassium 7.7 mmol/L (3.5-5.1)
[2024-12-25] MEDS ORDERED: PNEUMONIA PROTOCOL UTILIZED 1 EACH MISC PO PRN (20:11)
[2024-12-25] MEDS ORDERED: DEXTROSE 50% SYRINGE 50 ML IVP PRN ×2 (20:17)
[2024-12-25] MEDS: INSULIN REGULAR 100 UNIT/ML VIAL (IV) IV ONE (20:48)
[2024-12-25] MEDS: SODIUM BICARB 8.4% 50 ML SYR (1 MEQ/ML) IV ONE (20:49)
[2024-12-25] MEDS: SODIUM CHLORIDE 0.9% 1,000 ML IV SCH (20:52)
[2024-12-25] MEDS: CALCIUM GLUCONATE IN NACL 1 GM in SALINE 1 100ML.BAG IVPB ONE (20:53)
[2024-12-25] MEDS: INSULIN REGULAR 100 UNIT in SODIUM CHLORIDE 0.9% 100 ML IV SCH (21:08)
[2024-12-25] MEDS: PIPERACILLIN-TAZOBACTAM 3.375 GM in SODIUM CHLORIDE 0.9% 100 ML IVPB STA (21:10)
[2024-12-25] MEDS ORDERED: NALOXONE 0.4 MG/ML 1 ML VIAL IV PRN (21:22)
[2024-12-25 21:42] LABS: Appearance,Urine Clear (Clear); Bacteria,Urine Rare /hpf; Bilirubin,Urine Negative (Negative); Blood,Urine Trace (Negative); Color,Urine Colorless; Glucose,Urine (UA) 4+ (Negative); Ketones,Urine Negative (Negative); Leukocyte Esterase,Urine Negative (Negative); Mucus,Urine Rare /hpf; Nitrite,Urine Negative (Negative); PH, Urine 5.5 (5.0-8.0); Protein,Urine Trace (Negative); RBC,Urine <1 /hpf (0-5); Specific Gravity,Urine 1.025 (1.001-1.035); Squamous Epithelial Cell,Urine 1 /hpf (0-4); Urobilinogen,Urine <2.0 mg/dL (<2.0); WBC,Urine 1 /hpf (0-5)
[2024-12-25] MEDS: SODIUM ZIRCONIUM CYCLOSILICATE 10 GM PACKET PO ONE (21:42)
[2024-12-25] MEDS: SODIUM CHLORIDE 0.9% 500 ML 500 ML IV ONE (21:45)
[2024-12-25 21:52] LABS: Amphetamine Screen,Urine Not Detected (NotDetected); Barbiturate Screen,Urine Not Detected (NotDetected); Benzodiazepines Screen,Urine Not Detected (NotDetected); Cocaine Screen,Urine Not Detected (NotDetected); Methadone Screen, Urine Not Detected (NotDetected); Opiate Screen,Urine Not Detected (NotDetected); Oxycodone Screen, Urine Not Detected (NotDetected); Phencyclidine Screen,Urine Not Detected (NotDetected); Tricyclic Antidepressant,Urine Not Detected (NotDetected); Urn Cannabinoid Scrn Not Detected (NotDetected)
[2024-12-25 22:14] LABS: Glucose,Whole Blood >600 mg/dL (70-110)
[2024-12-25] MEDS: ALBUTEROL NEB (CONC) 2.5 MG/0.5 ML INHALATION ONE (22:14)
[2024-12-25] MEDS ORDERED: Magnesium Replacement Protocol 1 EACH MISC MISCELLANE PRN (22:55)
[2024-12-25] MEDS: AZITHROMYCIN 500 MG in SODIUM CHLORIDE 0.9% 250 ML IVPB STA (23:02)
[2024-12-25 23:11] LABS: Glucose,Whole Blood >600 mg/dL (70-110)
--- NOTE | 2024-12-25 23:11 | P.HPIM ---
History of Present Illness H&P Date: 12/25/24 Patient is a 69-year-old male with diabetes, GERD, hypertension, depression here for altered mental status. He was admitted for [facility] last 11/13/2024. Patient is a poor historian due to intermittent confusion and lethargy. Patient history obtained from . She reported that patient has not been eating a full meal since the and has not been taking his medications properly. Since then he has been having worsening shortness of breath, generalized weakness and confusion. He was also noted to be very dry and looks like he had a lot of weight loss. She noted that he had a nonproductive cough, and diarrhea. There was no noted fever, chest pain, changes in urination, extremity swelling, facial asymmetry, changes in speech, changes in vision, recent illness, or recent travel. On admission, brain CT showed no acute intracranial process. Chest x-ray showed multifocal airspace opacities to correlate for pneumonia and to exclude pulmonary edema. Labs on admission showed WBC 25, hemoglobin 10.6, MCV 99.9, platelet count 266,000, PT 11.6, INR 1.1, PTT 28.3, sodium 128, potassium 7.7, chloride 103, bicarb 14, BUN 43, creatinine 2.3, glucose 951, lactic acid 2.5, calcium 9.2, magnesium 1.4, total bilirubin 0.7, AST 17, ALT 17, alk phos 136, ammonia less than 9, albumin 2.7. Acetone negative. Cepheid 4 negative. VBG pH 7.21, pCO2 42, bicarb 17. Vitals on admission temperature 97.7F, pulse rate 82, respiratory rate 30, blood pressure 91/52, oxygen 99% on 4 L nasal cannula ED documentation reviewed. D5 half-normal saline with potassium at 150 cc/h, calcium gluconate IVPB, insulin IV drip, Zosyn IVPB, Zithromax IVPB, and Lokelma 10 g p.o. given in the ED. Bicarb 50 mL IV once and insulin regular 10 units IV given once. Review of systems: Cannot be obtained as patient is confused Physical examination: Vital signs reviewed General: toxic, no distress, appears at stated age, on 2 L nasal cannula Derm: no unusual rashes/lesions, warm Head: atraumatic, normocephalic, symmetric Eyes: EOMI, anicteric sclera, pupils equal round reactive to light ENT: Nose and ears atraumatic Neck: No cervical lymphadenopathy, trachea midline, supple Mouth: no lip lesion, mucus membranes dry Cardiovascular: S1S2 reg, no murmur Lungs: Bibasilar crackles, no rhonchi, no rales, no accessory muscle use Abdominal: soft, nondistended, generalized abdominal tenderness on deep palpation, no guarding Ext: muscle strength 5 out of 5 in all 4 extremities grossly, no gross muscle atrophy, no contractures, positive dorsalis pedis pulse bilateral, +1 bilateral pitting edema Neuro: CN II-XI grossly intact, no gross focal neuro deficits Psych: Alert and oriented x 3, appears lethargic, appropriate affect and mood Assessment/Plan: 69-year-old male with history of diabetes and recent admission for [facility] here for altered mental status. Labs indicate patient is in DKA. Chest x-ray is concerning for pneumonia versus pulmonary edema #. Acute metabolic encephalopathy #. HHS #. Nonaniongap metabolic acidosis secondary to above #. Lactic acidosis secondary to above #. Leukocytosis likely reactive -glucose 951, lactic acid 2.5 -ammonia less than 9, acteone negative -bicarb 14 -Insulin drip initiated in the ED. Continue with insulin drip until glucose drops to <250. Maintain glucose levels at 200-250 -D5 half-normal saline with potassium at 150 cc/h given in the ED. Corrected sodium 142. Switch IVF to 0.45 NS 250cc/hour -Serum osmolality every 4 hours -BMP every 4 hours -Check phosphorus every 4 hours -Cardiac telemetry -Fall precautions #. Hyperkalemic emergency secondary to HHS -Lokelma 10 g p.o. given in the ED -Calcium gluconate IVPB given in the ED -Repeat BMP every 4 hours -Check EKG patient on insulin drip for HHS treatment , which in turn will shift his K intracellularly #. Hypomagnesemia - magnesium 1.4 - Replete magnesium. Check magnesium after repletion #. Multifocal airspace opacities pneumonia versus pulmonary edema -Per , patient had a cough in the past few days -Patient is short of breath at this time, has crackles in the bibasilar area -Continue with Zithromax 500 mg IVPB daily. Initiate Rocephin 2 g IVP daily -Monitor CBC -Check Pro-[place] blood cultures, sputum cultures, and urine legionella Chronic Conditions: #. GERD #. Hypertension #. Depression -Resume home medications once reconciled F: IVF 0.45 normal saline 250 cc/h E: Monitor all electrolytes including phosphorus N: N.p.o. A: Fall precautions DVT ppx: Lovenox 40 mg SQ daily GI ppx: Not indicated at this time Dispo: The patient is admitted with an anticipated greater than than 2 midnight stay for evaluation of DKA CODE STATUS: Full Discussed with: Patient Anticipated discharge place: Home Selene Morley MD PGY-1 IM Dictation was produced using [employer] dictation software. please excuse any gramma tical, word or spelling errors. I have seen and evaluated the patient today. I Discussed the case with the resident and agree with the resident's findings I edited the assessment and plan as necessary as documented in the resident's note. Past Medical History Past Medical History: Chest Pain / Angina, Diabetes Mellitus, GERD/Reflux, Hypertension Additional Past Medical History / Comment(s): BACK PAIN, POSITIVE FOR BLOOD IN STOOL., SLIGHT [place]. History of Any Multi-Drug Resistant Organisms: None Reported Past Surgical History: Hernia Repair Additional Past Surgical History / Comment(s): NASAL SURGERY, RT ANKLE PINS & SCREWS. Past Anesthesia/Blood Transfusion Reactions: No Reported Reaction Past Psychological History: Depression Past Alcohol Use History: Occasional Past Drug Use History: None Reported - Past Family History Mother Family Medical History: No Reported History Medications and Allergies Home Medications Medication Instructions Recorded Confirmed Type Folic Acid 1 mg PO DAILY 12/25/24 12/25/24 History Insulin Glargine,Hum.rec.anlog 20 unit SQ DAILY 12/25/24 12/25/24 History [Insulin Glargine Solostar] Insulin Lispro [Insulin Lispro 4 unit SQ TID-W/MEALS 12/25/24 12/25/24 History Kwikpen U-100] Ipratropium-Albuterol Nebulize 3 ml INHALATION RT-QID PRN 12/25/24 12/25/24 History [Duoneb 0.5 mg-3 mg/3 ml Soln] Labetalol [Trandate] 100 mg PO TID@09,13,21 12/25/24 12/25/24 History Pantoprazole [Protonix] 40 mg PO BID 12/25/24 12/25/24 History Potassium Chloride ER [K-Dur 20] 40 meq PO DAILY 12/25/24 12/25/24 History lisinopriL [Zestril] 5 mg PO DAILY 12/25/24 12/25/24 History Allergies Allergy/AdvReac Type Severity Reaction Status Date / Time morphine Allergy Unknown Itching Verified 12/25/24 18:34 tramadol Allergy Unknown Itching Verified 12/25/24 18:34 Physical Exam Vitals: Vital Signs Temp Pulse Resp BP Pulse Ox 12/25/24 19:44 87 18 113/61 95 12/25/24 18:58 88 30 H 85/56 99 12/25/24 18:24 97.7 F 82 30 H 91/52 99 Intake and Output 12/25/24 12/25/24 12/25/24 06:59 14:59 22:59 Other: Weight 86.183 kg Results CBC & Chem 7: 12/25/24 18:48 12/26/24 04:09 Labs: Abnormal Lab Results - Last 24 Hours (Table) 12/25/24 12/25/24 12/25/24 Range/Units 18:48 18:48 18:48 WBC 25.0 H (3.8-10.6) k/uL RBC 3.67 L (4.30-5.90) m/uL Hgb 10.6 L (13.0-17.5) gm/dL Hct 36.7 L (39.0-53.0) % MCHC 29.0 L (31.0-37.0) g/dL RDW 15.8 H (11.5-15.5) % Neutrophils # 22.0 H (1.3-7.7) k/uL Monocytes # 1.1 H (0-1.0) k/uL VBG pH 7.21 L (7.31-7.41) VBG HCO3 17 L (24-28) mmol/L Sodium (137-145) mmol/L Potassium (3.5-5.1) mmol/L Carbon Dioxide (22-30) mmol/L BUN (9-20) mg/dL Creatinine (0.66-1.25) mg/dL Glucose (74-99) mg/dL POC Glucose (mg/dL) (70-110) mg/dL Plasma Lactic Acid Evaristo 2.5 H* (0.7-2.0) mmol/L Magnesium (1.6-2.3) mg/dL Alkaline Phosphatase (38-126) U/L Albumin (3.5-5.0) g/dL 12/25/24 12/25/24 Range/Units 19:07 19:11 WBC (3.8-10.6) k/uL RBC (4.30-5.90) m/uL Hgb (13.0-17.5) gm/dL Hct (39.0-53.0) % MCHC (31.0-37.0) g/dL RDW (11.5-15.5) % Neutrophils # (1.3-7.7) k/uL Monocytes # (0-1.0) k/uL VBG pH (7.31-7.41) VBG HCO3 (24-28) mmol/L Sodium 128 L (137-145) mmol/L Potassium 7.7 H* (3.5-5.1) mmol/L Carbon Dioxide 14 L (22-30) mmol/L BUN 43 H (9-20) mg/dL Creatinine 2.30 H (0.66-1.25) mg/dL Glucose 951 H* (74-99) mg/dL POC Glucose (mg/dL) >600 H* (70-110) mg/dL Plasma Lactic Acid Evaristo (0.7-2.0) mmol/L Magnesium 1.4 L (1.6-2.3) mg/dL Alkaline Phosphatase 136 H (38-126) U/L Albumin 2.7 L (3.5-5.0) g/dL
[2024-12-25] MEDS: D5-0.45% NACL WITH KCL 20MEQ/L 1,000 ML IV SCH (23:21)
[2024-12-25] MEDS: SODIUM CHLORIDE 0.45% 1,000 ML IV SCH (23:22)
--- NOTE | 2024-12-25 23:26 | ED ---
General Adult HPI - General Chief complaint: Altered Mental Status Stated complaint: Hyperglycemia Time Seen by Provider: 12/25/24 18:23 Source: patient, family, EMS, RN notes reviewed, old records reviewed Mode of arrival: EMS - History of Present Illness Initial comments: Patient is a 69-year-old male who presents emergency department for weakness, dehydration, high blood sugars. Patient does have a history of DKA. Also was recently admitted here for what looks like sepsis and had episode of GI bleed and required transfer. Denies any bloody bowel movements and denies any bloody emesis. He is mildly confused. Blood sugar was elevated at home. States he galvez s been weak. Appears dehydrated. Presents for further evaluation at this time. Patient's provides history of patient being more weak and not taking all of his medications at home. Patient has been having these weakness and lethargic symptoms for multiple days. - Related Data Home Medications Medication Instructions Recorded Confirmed Folic Acid 1 mg PO DAILY 12/25/24 12/25/24 Insulin Glargine,Hum.rec.anlog 20 unit SQ DAILY 12/25/24 12/25/24 [Insulin Glargine Solostar] Insulin Lispro [Insulin Lispro 4 unit SQ TID-W/MEALS 12/25/24 12/25/24 Kwikpen U-100] Ipratropium-Albuterol Nebulize 3 ml INHALATION RT-QID PRN 12/25/24 12/25/24 [Duoneb 0.5 mg-3 mg/3 ml Soln] Labetalol [Trandate] 100 mg PO TID@09,13,21 12/25/24 12/25/24 Pantoprazole [Protonix] 40 mg PO BID 12/25/24 12/25/24 Potassium Chloride ER [K-Dur 20] 40 meq PO DAILY 12/25/24 12/25/24 lisinopriL [Zestril] 5 mg PO DAILY 12/25/24 12/25/24 Allergies Allergy/AdvReac Type Severity Reaction Status Date / Time morphine Allergy Unknown Itching Verified 12/25/24 18:34 tramadol Allergy Unknown Itching Verified 12/25/24 18:34 Review of Systems ROS Statement: Those systems with pertinent positive or pertinent negative responses have been documented in the HPI. Review of Systems: CONST: Denies fever EYES: Denies blurry vision ENT: Denies nasal congestion C/V: Denies Chest pain RESP: Denies shortness of breath GI: Denies abdominal pain : Denies dysuria SKIN: Denies rash. MSK: Denies joint pain. NEURO: Endorses weakness ROS Other: All systems not noted in ROS Statement are negative. Past Medical History Past Medical History: Chest Pain / Angina, Diabetes Mellitus, GERD/Reflux, Hype rtension Additional Past Medical History / Comment(s): BACK PAIN, POSITIVE FOR BLOOD IN STOOL., SLIGHT KIANA. History of Any Multi-Drug Resistant Organisms: None Reported Past Surgical History: Hernia Repair Additional Past Surgical History / Comment(s): NASAL SURGERY, RT ANKLE PINS & SCREWS. Past Anesthesia/Blood Transfusion Reactions: No Reported Reaction Past Psychological History: Depression Past Alcohol Use History: Occasional Past Drug Use History: None Reported - Past Family History Mother Family Medical History: No Reported History General Exam - General Exam Comments Initial Comments: General: Appears dehydrated, weak HEAD: Normal with no signs of head trauma. EYES: PERRLA, EOMI, conjunctiva normal, no discharge. Pupils are 3 mm and equal bilaterally. ENT: Hearing grossly intact, normal oropharynx. Dry mucous membranes. RESPIRATORY: Increased work of breathing. On 4 L nasal cannula oxygen. C/V: Regular rate and rhythm. S1 and S2 auscultated, no edema, peripheral pulses 2+ and intact throughout ABD: Abd is soft, nontender, nondistended EXT: Normal range of motion, no obvious deformity SKIN: No rashes or lesions observed on exposed skin. NEURO: Alert and oriented x 2-3. No focal deficits. Course Vital Signs 12/25/24 12/25/24 12/25/24 18:24 18:58 19:44 Temperature 97.7 F Pulse Rate 82 88 87 Respiratory 30 H 30 H 18 Rate Blood Pressure 91/52 85/56 113/61 O2 Sat by Pulse 99 99 95 Oximetry 12/25/24 12/25/24 12/25/24 21:15 21:45 22:00 Temperature Pulse Rate 97 96 96 Respiratory 22 20 18 Rate Blood Pressure 92/58 99/54 102/57 O2 Sat by Pulse 92 L 100 95 Oximetry 12/25/24 12/25/24 12/25/24 22:14 22:27 23:00 Temperature Pulse Rate 96 89 97 Respiratory 20 20 20 Rate Blood Pressure 112/90 O2 Sat by Pulse 98 Oximetry Medical Decision Making - Medical Decision Making Was pt. sent in by a medical professional or institution ([facility], [facility], urgent care, hospital, or usp...) When possible be specific @ -No Did you speak to anyone other than the patient for history (EMS, parent, family, police, friend...)? What history was obtained from this source @ -Patient's to assist with some of the patient's HPI. Did you review nursing and triage notes (agree or disagree)? Why? @ -I reviewed and agree with nursing and triage notes Were old charts reviewed (outside hosp., previous admission, EMS record, old EKG, old radiological studies, urgent care reports/EKG's, usp records)? Report findings @ -Old charts reviewed including recent admission for DKA. This includes EKG from November 2024. No significant change when compared with today's. Differential Diagnosis (chest pain, altered mental status, abdominal pain women, abdominal pain men, vaginal bleeding, weakness, fever, dyspnea, syncope, head ache, dizziness, GI bleed, back pain, seizure, CVA, palpatations, mental health, musculoskeletal)? @ -Differential Altered Mental Status: Hypoglycemia, DKA, hypercapnia, ETOH, overdose, CO poisoning, trauma, myxedema coma, HTN encephalopathy, infection, encephalitis, psychosis, intercranial hemorrhage, hepatic encephalopathy, meningitis, CVA, this is not meant to be an all-inclusive list EKG interpreted by me (3pts min.). @ -As above X-rays interpreted by me (1pt min.). @ -Chest x-ray reveals multifocal pneumonia CT interpreted by me (1pt min.). @ -CT brain reveals no obvious acute intracranial process. U/S interpreted by me (1pt. min.). @ -None done What testing was considered but not performed or refused? (CT, X-rays, U/S, labs)? Why? @ -None What meds were considered but not given or refused? Why? @ -None Did you discuss the management of the patient with other professionals (professionals i.e. [facility], [facility], lab, RT, psych nurse, child welfare social worker, donkey ride operator, teacher, resident medical officer, case work aide)? Give summary @ -Discussed management with admitting provider, Dr. Brothers who accepted the admission. Discussed the case with Dr. Kraft of ICU who accepted the admission to the ICU. Both were in agreement with workup. Was smoking cessation discussed for >3mins.? @ -No Was critical care preformed (if so, how long)? @ -Yes, 40 minutes. Were there social determinants of health that impacted care today? How? (Homelessness, low income, unemployed, alcoholism, drug addiction, transportation, low edu. Level, literacy, decrease access to med. care, half-way, rehab)? @ -No Was there de-escalation of care discussed even if they declined (Discuss DNR or withdrawal of care, Hospice)? DNR status @ -No What co-morbidities impacted this encounter? (DM, HTN, Smoking, COPD, CAD, Can cer, CVA, ARF, Chemo, Hep., AIDS, mental health diagnosis, sleep apnea, morbid obesity)? @ -Diabetes Was patient admitted / discharged? Hospital course, mention meds given and route, prescriptions, significant lab abnormalities, going to OR and other pertinent info. @ -Patient presents with what sounds like medication noncompliance and concern for hyperglycemia and possible DKA. Patient also has hypoxic respiratory failure. Will obtain workup, CT brain. Patient agreement this plan. Started on 3 L fluid bolus including the bolus from EMS. He has no other acute complaints at this time. CT brain unremarkable. Chest x-ray shows pneumonia. Laboratory studies remarkable for leukocytosis of 25, mild anemia 10.6 which appears stable, no significant acidosis his bicarb is 17 on VBG. Patient is hyperkalemic to 7.7. Lactic acid elevated 2.5 likely from dehydration and underlying HHS. Patient has no anion gap metabolic acidosis. Patient has an LATOYA on CKD. Patient is mildly hypomagnesemic and given IV magnesium supplement. No ketones on urine. Negative acetone. Patient was mildly hypotensive and required an additional fluid bolus which did seem to fix this issue. Patient likely has HHS, and concern for septic pneumonia. Also an LATOYA. Patient met sepsis criteria at 2009. Patient started on Zosyn and azithromycin. Patient has met the 30 cc/kg fluid bolus requirements by this time with started on maintenance fluids. The [facility] protocol. HHS protocol was ordered. Blood cultures ordered. Patient also given hyperkalemia cocktail including an amp of bicarb, oral Lokelma, insulin bolus, calcium gluconate. Patient also received albuterol inhaled nebulized solution. No evidence of hyperkalemia on EKG. At this time, patient will be admitted to the ICU. I spoke with ICU attending Dr. Kraft who accepted the admission. I also spoke with the admitting provider, Dr. Naranjo of [facility] physician [facility] who accepted the admission. Patient admitted in serious condition. Undiagnosed new problem with uncertain prognosis? @ -No Drug Therapy requiring intensive monitoring for toxicity (Heparin, Nitro, Insulin, Cardizem)? @ -Insulin Were any procedures done? @ -No Diagnosis/symptom? @ -HHS, septic pneumonia, LATOYA, hyperkalemia, encephalopathy Acute, or Chronic, or Acute on Chronic? @ -Acute Uncomplicated (without systemic symptoms) or Complicated (systemic symptoms)? @ -Complicated Side effects of treatment? @ -No Exacerbation, Progression, or Severe Exacerbation? @ -No Poses a threat to life or bodily function? How? (Chest pain, USA, NH, pneumonia, PE, COPD, DKA, ARF, appy, cholecystitis, CVA, Diverticulitis, Homicidal, Suicidal, threat to staff... and all critical care pts) @ -Yes - Lab Data Result diagrams: 12/25/24 18:48 12/25/24 19:11 Lab Results 12/25/24 12/25/24 12/25/24 Range/Units 18:48 18:48 18:48 WBC 25.0 H (3.8-10.6) k/uL RBC 3.67 L (4.30-5.90) m/uL Hgb 10.6 L (13.0-17.5) gm/dL Hct 36.7 L (39.0-53.0) % MCV 99.9 D (80.0-100.0) fL MCH 29.0 (25.0-35.0) pg MCHC 29.0 L (31.0-37.0) g/dL RDW 15.8 H (11.5-15.5) % Plt Count 266 (150-450) k/uL MPV 11.0 Neutrophils % 88 % Lymphocytes % 5 % Monocytes % 5 % Eosinophils % 0 % Basophils % 1 % Neutrophils # 22.0 H (1.3-7.7) k/uL Lymphocytes # 1.1 (1.0-4.8) k/uL Monocytes # 1.1 H (0-1.0) k/uL Eosinophils # 0.1 (0-0.7) k/uL Basophils # 0.1 (0-0.2) k/uL Hypochromasia Marked Poikilocytosis Slight Macrocytosis Slight PT 11.6 (10.0-12.5) sec INR 1.1 (<1.2) APTT 28.3 (22.0-30.0) sec VBG pH (7.31-7.41) VBG pCO2 (37-51) mmHg VBG HCO3 (24-28) mmol/L Sodium (137-145) mmol/L Potassium (3.5-5.1) mmol/L Chloride (98-107) mmol/L Carbon Dioxide (22-30) mmol/L Anion Gap mmol/L BUN (9-20) mg/dL Creatinine (0.66-1.25) mg/dL Est GFR (CKD-EPI)AfAm (>60 ml/min/1.73 sqM) Est GFR (CKD-EPI)NonAf (>60 ml/min/1.73 sqM) Glucose (74-99) mg/dL POC Glucose (mg/dL) (70-110) mg/dL POC Glu Electrical Controls Technician ID Lactic Ac Sepsis Rflx Plasma Lactic Acid Evaristo 2.5 H* (0.7-2.0) mmol/L Calcium (8.4-10.2) mg/dL Magnesium (1.6-2.3) mg/dL Total Bilirubin (0.2-1.3) mg/dL AST (17-59) U/L ALT (4-49) U/L Alkaline Phosphatase (38-126) U/L Ammonia <9 (<30) umol/L Total Protein (6.3-8.2) g/dL Albumin (3.5-5.0) g/dL Urine Color Urine Appearance (Clear) Urine pH (5.0-8.0) Ur Specific Ambler (1.001-1.035) Urine Protein (Negative) Urine Glucose (UA) (Negative) Urine Ketones (Negative) Urine Blood (Negative) Urine Nitrite (Negative) Urine Bilirubin (Negative) Urine Urobilinogen (<2.0) mg/dL Ur Leukocyte Esterase (Negative) Urine RBC (0-5) /hpf Urine WBC (0-5) /hpf Ur Squamous Epith Cells (0-4) /hpf Urine Bacteria (None) /hpf Urine Mucus (None) /hpf Acetone, Qual (Negative) Influenza Type A (PCR) (Not Detectd) Influenza Type B (PCR) (Not Detectd) RSV (PCR) (Not Detectd) SARS-CoV-2 (PCR) (Not Detectd) 12/25/24 12/25/24 12/25/24 Range/Units 18:48 18:48 19:07 WBC (3.8-10.6) k/uL RBC (4.30-5.90) m/uL Hgb (13.0-17.5) gm/dL Hct (39.0-53.0) % MCV (80.0-100.0) fL MCH (25.0-35.0) pg MCHC (31.0-37.0) g/dL RDW (11.5-15.5) % Plt Count (150-450) k/uL MPV Neutrophils % % Lymphocytes % % Monocytes % % Eosinophils % % Basophils % % Neutrophils # (1.3-7.7) k/uL Lymphocytes # (1.0-4.8) k/uL Monocytes # (0-1.0) k/uL Eosinophils # (0-0.7) k/uL Basophils # (0-0.2) k/uL Hypochromasia Poikilocytosis Macrocytosis PT (10.0-12.5) sec INR (<1.2) APTT (22.0-30.0) sec VBG pH 7.21 L (7.31-7.41) VBG pCO2 42 (37-51) mmHg VBG HCO3 17 L (24-28) mmol/L Sodium (137-145) mmol/L Potassium (3.5-5.1) mmol/L Chloride (98-107) mmol/L Carbon Dioxide (22-30) mmol/L Anion Gap mmol/L BUN (9-20) mg/dL Creatinine (0.66-1.25) mg/dL Est GFR (CKD-EPI)AfAm (>60 ml/min/1.73 sqM) Est GFR (CKD-EPI)NonAf (>60 ml/min/1.73 sqM) Glucose (74-99) mg/dL POC Glucose (mg/dL) >600 H* (70-110) mg/dL POC Glu Electrical Controls Technician ID Sukhwinder Em Lactic Ac Sepsis Rflx Plasma Lactic Acid Evaristo (0.7-2.0) mmol/L Calcium (8.4-10.2) mg/dL Magnesium (1.6-2.3) mg/dL Total Bilirubin (0.2-1.3) mg/dL AST (17-59) U/L ALT (4-49) U/L Alkaline Phosphatase (38-126) U/L Ammonia (<30) umol/L Total Protein (6.3-8.2) g/dL Albumin (3.5-5.0) g/dL Urine Color Urine Appearance (Clear) Urine pH (5.0-8.0) Ur Specific Ambler (1.001-1.035) Urine Protein (Negative) Urine Glucose (UA) (Negative) Urine Ketones (Negative) Urine Blood (Negative) Urine Nitrite (Negative) Urine Bilirubin (Negative) Urine Urobilinogen (<2.0) mg/dL Ur Leukocyte Esterase (Negative) Urine RBC (0-5) /hpf Urine WBC (0-5) /hpf Ur Squamous Epith Cells (0-4) /hpf Urine Bacteria (None) /hpf Urine Mucus (None) /hpf Acetone, Qual (Negative) Influenza Type A (PCR) Not Detected (Not Detectd) Influenza Type B (PCR) Not Detected (Not Detectd) RSV (PCR) Not Detected (Not Detectd) SARS-CoV-2 (PCR) Not Detected (Not Detectd) 12/25/24 12/25/24 12/25/24 Range/Units 19:11 19:33 21:03 WBC (3.8-10.6) k/uL RBC (4.30-5.90) m/uL Hgb (13.0-17.5) gm/dL Hct (39.0-53.0) % MCV (80.0-100.0) fL MCH (25.0-35.0) pg MCHC (31.0-37.0) g/dL RDW (11.5-15.5) % Plt Count (150-450) k/uL MPV Neutrophils % % Lymphocytes % % Monocytes % % Eosinophils % % Basophils % % Neutrophils # (1.3-7.7) k/uL Lymphocytes # (1.0-4.8) k/uL Monocytes # (0-1.0) k/uL Eosinophils # (0-0.7) k/uL Basophils # (0-0.2) k/uL Hypochromasia Poikilocytosis Macrocytosis PT (10.0-12.5) sec INR (<1.2) APTT (22.0-30.0) sec VBG pH (7.31-7.41) VBG pCO2 (37-51) mmHg VBG HCO3 (24-28) mmol/L Sodium 128 L (137-145) mmol/L Potassium 7.7 H* (3.5-5.1) mmol/L Chloride 103 (98-107) mmol/L Carbon Dioxide 14 L (22-30) mmol/L Anion Gap 11 mmol/L BUN 43 H (9-20) mg/dL Creatinine 2.30 H (0.66-1.25) mg/dL Est GFR (CKD-EPI)AfAm 32 (>60 ml/min/1.73 sqM) Est GFR (CKD-EPI)NonAf 28 (>60 ml/min/1.73 sqM) Glucose 951 H* (74-99) mg/dL POC Glucose (mg/dL) (70-110) mg/dL POC Glu Electrical Controls Technician ID Lactic Ac Sepsis Rflx Y Plasma Lactic Acid Evaristo (0.7-2.0) mmol/L Calcium 9.2 (8.4-10.2) mg/dL Magnesium 1.4 L (1.6-2.3) mg/dL Total Bilirubin 0.7 (0.2-1.3) mg/dL AST 17 (17-59) U/L ALT 17 (4-49) U/L Alkaline Phosphatase 136 H (38-126) U/L Ammonia (<30) umol/L Total Protein 6.6 (6.3-8.2) g/dL Albumin 2.7 L (3.5-5.0) g/dL Urine Color Colorless Urine Appearance Clear (Clear) Urine pH 5.5 (5.0-8.0) Ur Specific Ambler 1.025 (1.001-1.035) Urine Protein Trace H (Negative) Urine Glucose (UA) 4+ H (Negative) Urine Ketones Negative (Negative) Urine Blood Trace H (Negative) Urine Nitrite Negative (Negative) Urine Bilirubin Negative (Negative) Urine Urobilinogen <2.0 (<2.0) mg/dL Ur Leukocyte Esterase Negative (Negative) Urine RBC <1 (0-5) /hpf Urine WBC 1 (0-5) /hpf Ur Squamous Epith Cells 1 (0-4) /hpf Urine Bacteria Rare H (None) /hpf Urine Mucus Rare H (None) /hpf Acetone, Qual Negative (Negative) Influenza Type A (PCR) (Not Detectd) Influenza Type B (PCR) (Not Detectd) RSV (PCR) (Not Detectd) SARS-CoV-2 (PCR) (Not Detectd) - EKG Data -: EKG Interpreted by Me EKG Comments: 12-lead Electrocardiogram Interpretation Note EKG was reviewed and interpreted by myself. 12-lead ECG performed at 1929 is interpreted by me as revealing normal sinus rhythm at a rate of 88 beats per minute. [place] is normal. GA interval is 149 ms, QRS durations 103 ms, QTc is 400 ms.. There were no ST or T wave abnormalities to suggest myocardial ischemia or injury. R wave progression across the precordium was satisfactory. By my interpretation this EKG is non-diagnostic for acute ischemia. Critical Care Time Critical Care Time: Yes Total Critical Care Time: 40 Disposition Clinical Impression: Sepsis, Pneumonia, Encephalopathy, Hyperkalemia, LATOYA (acute kidney injury), Hyperosmolar hyperglycemic state (HHS) Disposition: ADMITTED IP TO THIS HOSP Condition: Serious Time of Disposition: 21:22
[2024-12-26 00:11] LABS: Glucose,Whole Blood 569 mg/dL (70-110)
[2024-12-26] MEDS: SODIUM CHLORIDE 0.9% 1,000 ML IV SCH (01:02)
[2024-12-26] MEDS: MAGNESIUM SULFATE-D5W PMX 1 GM in DEXTROSE/WATER 1 100ML.BAG IVPB SCH (01:05)
[2024-12-26 01:09] LABS: African American GFR (CKD) 39 (>60 ml/min/1.73 sqM); Anion Gap 14 mmol/L; Blood Urea Nitrogen 39 mg/dL (9-20); Carbon Dioxide 15 mmol/L (22-30); Chloride 111 mmol/L (98-107); Glucose 475 mg/dL (74-99); Non-African American GFR(CKD) 33 (>60 ml/min/1.73 sqM); Phosphorus 3.4 mg/dL (2.5-4.5); Potassium 5.2 mmol/L (3.5-5.1); Sodium 140 mmol/L (137-145)
[2024-12-26 01:11] LABS: Glucose,Whole Blood 438 mg/dL (70-110)
[2024-12-26 01:16] LABS: NT-Pro-B-Type Natriuretic Pept 317 pg/mL
[2024-12-26 02:05] LABS: Glucose,Whole Blood 369 mg/dL (70-110)
[2024-12-26 03:04] LABS: Glucose,Whole Blood 285 mg/dL (70-110)
[2024-12-26] MEDS: DEXTROSE 5%-0.45% NACL 1,000 ML IV SCH (03:06)
[2024-12-26 04:06] LABS: Glucose,Whole Blood 168 mg/dL (70-110)
[2024-12-26] MEDS: PIPERACILLIN-TAZOBACTAM 3.375 GM in SODIUM CHLORIDE 0.9% 100 ML IVPB SCH (04:45)
[2024-12-26 05:02] LABS: Glucose,Whole Blood 240 mg/dL (70-110)
[2024-12-26 05:02] LABS: African American GFR (CKD) 42 (>60 ml/min/1.73 sqM); Anion Gap 11 mmol/L; Blood Urea Nitrogen 35 mg/dL (9-20); Carbon Dioxide 19 mmol/L (22-30); Chloride 114 mmol/L (98-107); Glucose 178 mg/dL (74-99); Non-African American GFR(CKD) 36 (>60 ml/min/1.73 sqM); Phosphorus 3.4 mg/dL (2.5-4.5); Potassium 4.9 mmol/L (3.5-5.1); Sodium 144 mmol/L (137-145)
[2024-12-26 06:10] LABS: Glucose,Whole Blood 161 mg/dL (70-110)
--- NOTE | 2024-12-26 06:40 | P.CNPUL ---
History of Present Illness Consult date: 12/26/24 Requesting physician: Danie Hui Reason for consult: other (ICU management, HHS) Chief complaint: Altered mental status History of present illness: Patient is a 69-year-old male with past medical history significant for hypertension, insulin-dependent diabetes mellitus, polysubstance abuse, COPD. Patient presented emergency department late last night with a chief complaint evaluated blood sugars, AMS, generalized weakness, and dehydration. Found to have multiple metabolic abnormalities consistent with HHNS. Of note, patient recently admitted to the hospital back on 11/13/2024 for similar presentation and HHNS. Did develop upper GI bleed during this hospitalization, ultimately transferred to on 11/24/2024 [facility] for GI services. On arrival to the ED, initial blood glucose 951 mg/dL, serum bicarb 14, anion gap 11, acetone and ketone negative. He was started on [facility] protocol. Also, blood pressure noted to be hypotensive, he has been fluid resuscitated with a total of 3.5 L normal saline so far, normal saline is infusing at 250 cc/h. Insulin infusing per protocol. Last [id number] glucose 569. Labs consistent with non-anion gap metabolic acidosis. Potassium was 7.7 mmol/L. He has received a dose of Lokelma, 1 amp sodium bicarb, 1 gram calcium gluconate. Repeat potassium levels pending. Remaining labs including CBC remarkable for leukocytosis with a WBC count of 25, hemoglobin is stable at 10.6 g/dL, platelets 266. Coagulation profile unremarkable. CMP includes a sodium 128, potassium 7.7, chloride 103, serum bicarb 14, anion gap 11, BUN 43, creatinine 2.3, glucose down to 569. Plasma osmolality 342. Lactic was 2.3. LFTs unremarkable. Ammonia less than 9. UA not concerning for UTI. Urine toxicology was negative on this admission. He is currently being a evaluated in the emergency department. He is obtunded, does withdraw to painful stimuli, will not hold sustained awakening or conversation. Blood pressure 96/49 mmHg, heart rate is tachycardic, sinus tachycardia. He is on 4 L/min nasal cannula with an SpO2 reading 92%. Appears nondistressed, breathing is nonlabored. Chest x-ray showing multifocal airspace disease concerning for pneumonia versus pulmonary edema. Cardiac silhouette stable, no pleural effusions, or pneumothoraces. Empirically started on combination of azithromycin and Zosyn in the ED. Brain CT did not show any acute intracranial process. Patient is going to be admitted to the intensive care unit once bed available. Review of Systems ROS unobtainable: due to mental status Past Medical History Past Medical History: Chest Pain / Angina, Diabetes Mellitus, GERD/Reflux, Hypertension Additional Past Medical History / Comment(s): BACK PAIN, POSITIVE FOR BLOOD IN STOOL., SLIGHT [place]. History of Any Multi-Drug Resistant Organisms: None Reported Past Surgical History: Hernia Repair Additional Past Surgical History / Comment(s): NASAL SURGERY, RT ANKLE PINS & SCREWS. Past Anesthesia/Blood Transfusion Reactions: No Reported Reaction Past Psychological History: Depression Past Alcohol Use History: Occasional Past Drug Use History: None Reported - Past Family History Mother Family Medical History: No Reported History Medications and Allergies Home Medications Medication Instructions Recorded Confirmed Type Folic Acid 1 mg PO DAILY 12/25/24 12/25/24 History Insulin Glargine,Hum.rec.anlog 20 unit SQ DAILY 12/25/24 12/25/24 History [Insulin Glargine Solostar] Insulin Lispro [Insulin Lispro 4 unit SQ TID-W/MEALS 12/25/24 12/25/24 History Kwikpen U-100] Ipratropium-Albuterol Nebulize 3 ml INHALATION RT-QID PRN 12/25/24 12/25/24 History [Duoneb 0.5 mg-3 mg/3 ml Soln] Labetalol [Trandate] 100 mg PO TID@09,13,21 12/25/24 12/25/24 History Pantoprazole [Protonix] 40 mg PO BID 12/25/24 12/25/24 History Potassium Chloride ER [K-Dur 20] 40 meq PO DAILY 12/25/24 12/25/24 History lisinopriL [Zestril] 5 mg PO DAILY 12/25/24 12/25/24 History Allergies Allergy/AdvReac Type Severity Reaction Status Date / Time morphine Allergy Unknown Itching Verified 12/25/24 18:34 tramadol Allergy Unknown Itching Verified 12/25/24 18:34 Physical Exam Vitals: Vital Signs Temp Pulse Resp BP Pulse Ox 12/25/24 23:00 97 20 112/90 98 12/25/24 22:27 89 20 12/25/24 22:14 96 20 12/25/24 22:00 96 18 102/57 95 12/25/24 21:45 96 20 99/54 100 12/25/24 21:15 97 22 92/58 92 L 12/25/24 19:44 87 18 113/61 95 12/25/24 18:58 88 30 H 85/56 99 12/25/24 18:24 97.7 F 82 30 H 91/52 99 Intake and Output 12/25/24 12/25/24 12/26/24 14:59 22:59 06:59 Other: Weight 86.183 kg GENERAL EXAM: Obtunded, 69-year-old -[place] male, no obvious distress. HEAD: Normocephalic and atraumatic EYES: Normal reaction of pupils, equal size. No nystagmus, nonicteric sclera NOSE: Clear with pink turbinates. THROAT: No erythema or exudates. Dry mucous membranes. NECK: No masses, no JVD. CHEST: No chest wall deformity. LUNGS: Equal air entry with scattered rhonchi. On 4 L/min nasal cannula. No conversational dyspnea or accessory muscle use.. CVS: S1 and S2 normal with no audible murmur, regular rhythm. No extra heart sounds ABDOMEN: No hepatosplenomegaly, active bowel sounds, no guarding or rigidity. SPINE: No scoliosis or deformity SKIN: No rashes CENTRAL NERVOUS SYSTEM: No focal deficits, tone is normal in all 4 extremities. EXTREMITIES: There is no peripheral edema, clubbing, or cyanosis. Peripheral pulses are intact. Results - Laboratory Findings CBC and BMP: 12/25/24 18:48 12/26/24 04:09 ABG WBC 25.0 k/uL (3.8-10.6) H 12/25/24 18:48 RBC 3.67 m/uL (4.30-5.90) L 12/25/24 18:48 Hgb 10.6 gm/dL (13.0-17.5) L 12/25/24 18:48 Hct 36.7 % (39.0-53.0) L 12/25/24 18:48 MCV 99.9 fL (80.0-100.0) D 12/25/24 18:48 MCH 29.0 pg (25.0-35.0) 12/25/24 18:48 MCHC 29.0 g/dL (31.0-37.0) L 12/25/24 18:48 RDW 15.8 % (11.5-15.5) H 12/25/24 18:48 Plt Count 266 k/uL (150-450) 12/25/24 18:48 MPV 11.0 12/25/24 18:48 Neutrophils % 88 % 12/25/24 18:48 Lymphocytes % 5 % 12/25/24 18:48 Monocytes % 5 % 12/25/24 18:48 Eosinophils % 0 % 12/25/24 18:48 Basophils % 1 % 12/25/24 18:48 Neutrophils # 22.0 k/uL (1.3-7.7) H 12/25/24 18:48 Lymphocytes # 1.1 k/uL (1.0-4.8) 12/25/24 18:48 Monocytes # 1.1 k/uL (0-1.0) H 12/25/24 18:48 Eosinophils # 0.1 k/uL (0-0.7) 12/25/24 18:48 Basophils # 0.1 k/uL (0-0.2) 12/25/24 18:48 Hypochromasia Marked 12/25/24 18:48 Poikilocytosis Slight 12/25/24 18:48 Macrocytosis Slight 12/25/24 18:48 PT 11.6 sec (10.0-12.5) 12/25/24 18:48 INR 1.1 (<1.2) 12/25/24 18:48 APTT 28.3 sec (22.0-30.0) 12/25/24 18:48 VBG pH 7.21 (7.31-7.41) L 12/25/24 18:48 VBG pCO2 42 mmHg (37-51) 12/25/24 18:48 VBG HCO3 17 mmol/L (24-28) L 12/25/24 18:48 Sodium 128 mmol/L (137-145) L 12/25/24 19:11 Potassium 7.7 mmol/L (3.5-5.1) H* 12/25/24 19:11 Chloride 103 mmol/L (98-107) 12/25/24 19:11 Carbon Dioxide 14 mmol/L (22-30) L 12/25/24 19:11 Anion Gap 11 mmol/L 12/25/24 19:11 BUN 43 mg/dL (9-20) H 12/25/24 19:11 Creatinine 2.30 mg/dL (0.66-1.25) H 12/25/24 19:11 Est GFR (CKD-EPI)AfAm 32 (>60 ml/min/1.73 sqM) 12/25/24 19:11 Est GFR (CKD-EPI)NonAf 28 (>60 ml/min/1.73 sqM) 12/25/24 19:11 Glucose 951 mg/dL (74-99) H* 12/25/24 19:11 POC Glucose (mg/dL) 569 mg/dL (70-110) H* 12/26/24 00:08 POC Glu Senior Officer ID Mata Valeri 12/26/24 00:08 Lactic Ac Sepsis Rflx Y 12/25/24 19:33 Plasma Lactic Acid Evaristo 2.3 mmol/L (0.7-2.0) H* 12/25/24 21:38 Calcium 9.2 mg/dL (8.4-10.2) 12/25/24 19:11 Magnesium 1.4 mg/dL (1.6-2.3) L 12/25/24 19:11 Total Bilirubin 0.7 mg/dL (0.2-1.3) 12/25/24 19:11 AST 17 U/L (17-59) 12/25/24 19:11 ALT 17 U/L (4-49) 12/25/24 19:11 Alkaline Phosphatase 136 U/L (38-126) H 12/25/24 19:11 Ammonia <9 umol/L (<30) 12/25/24 18:48 Total Protein 6.6 g/dL (6.3-8.2) 12/25/24 19:11 Albumin 2.7 g/dL (3.5-5.0) L 12/25/24 19:11 Urine Color Colorless 12/25/24 21:03 Urine Appearance Clear (Clear) 12/25/24 21:03 Urine pH 5.5 (5.0-8.0) 12/25/24 21:03 Ur Specific [place] 1.025 (1.001-1.035) 12/25/24 21:03 Urine Protein Trace (Negative) H 12/25/24 21:03 Urine Glucose (UA) 4+ (Negative) H 12/25/24 21:03 Urine Ketones Negative (Negative) 12/25/24 21:03 Urine Blood Trace (Negative) H 12/25/24 21:03 Urine Nitrite Negative (Negative) 12/25/24 21: Urine Bilirubin Negative (Negative) 12/25/24 21:03 Urine Urobilinogen <2.0 mg/dL (<2.0) 12/25/24 21:03 Ur Leukocyte Esterase Negative (Negative) 12/25/24 21:03 Urine RBC <1 /hpf (0-5) 12/25/24 21:03 Urine WBC 1 /hpf (0-5) 12/25/24 21:03 Ur Squamous Epith Cells 1 /hpf (0-4) 12/25/24 21:03 Urine Bacteria Rare /hpf (None) H 12/25/24 21:03 Urine Mucus Rare /hpf (None) H 12/25/24 21:03 Influenza Type A (PCR) Not Detected (Not Detectd) 12/25/24 18:48 Influenza Type B (PCR) Not Detected (Not Detectd) 12/25/24 18:48 RSV (PCR) Not Detected (Not Detectd) 12/25/24 18:48 SARS-CoV-2 (PCR) Not Detected (Not Detectd) 12/25/24 18:48 PT/INR, D-dimer PT 11.6 sec (10.0-12.5) 12/25/24 18:48 INR 1.1 (<1.2) 12/25/24 18:48 Abnormal lab findings: Abnormal Labs 12/25/24 12/25/24 12/25/24 18:48 18:48 18:48 WBC 25.0 H RBC 3.67 L Hgb 10.6 L Hct 36.7 L MCHC 29.0 L RDW 15.8 H Neutrophils # 22.0 H Monocytes # 1.1 H VBG pH 7.21 L VBG HCO3 17 L Sodium Potassium Carbon Dioxide BUN Creatinine Glucose POC Glucose (mg/dL) Plasma Lactic Acid Evaristo 2.5 H* Magnesium Alkaline Phosphatase Albumin Urine Protein Urine Glucose (UA) Urine Blood Urine Bacteria Urine Mucus 02/18/25 02/18/25 02/18/25 19:07 19:11 21:03 WBC RBC Hgb Hct MCHC RDW Neutrophils # Monocytes # VBG pH VBG HCO3 Sodium 128 L Potassium 7.7 H* Carbon Dioxide 14 L BUN 43 H Creatinine 2.30 H Glucose 951 H* POC Glucose (mg/dL) >600 H* Plasma Lactic Acid Evaristo Magnesium 1.4 L Alkaline Phosphatase 136 H Albumin 2.7 L Urine Protein Trace H Urine Glucose (UA) 4+ H Urine Blood Trace H Urine Bacteria Rare H Urine Mucus Rare H 12/25/24 12/25/24 12/25/24 21:38 22:01 23:09 WBC RBC Hgb Hct MCHC RDW Neutrophils # Monocytes # VBG pH VBG HCO3 Sodium Potassium Carbon Dioxide BUN Creatinine Glucose POC Glucose (mg/dL) >600 H* >600 H* Plasma Lactic Acid Evaristo 2.3 H* Magnesium Alkaline Phosphatase Albumin Urine Protein Urine Glucose (UA) Urine Blood Urine Bacteria Urine Mucus 12/26/24 00:08 WBC RBC Hgb Hct MCHC RDW Neutrophils # Monocytes # VBG pH VBG HCO3 Sodium Potassium Carbon Dioxide BUN Creatinine Glucose POC Glucose (mg/dL) 569 H* Plasma Lactic Acid Evaristo Magnesium Alkaline Phosphatase Albumin Urine Protein Urine Glucose (UA) Urine Blood Urine Bacteria Urine Mucus - Diagnostic Findings Chest x-ray: image reviewed Assessment and Plan Assessment: Acute hyperglycemia with hyperosmolar nonketotic state Acute metabolic encephalopathy, secondary to above Severe dehydration, secondary to above Non-anion gap metabolic acidosis Severe hyperkalemia, treated with 1 amp sodium bicarbonate, 1 dose of Lokelma, 1 g calcium gluconate Pseudohyponatremia, in the setting of severe hyperglycemia Acute kidney injury on top of chronic kidney disease, secondary to hypovolemia and intravascular volume depletion Acute hypoxemic respiratory failure, chest x-ray showing multifocal infiltrates concerning for pneumonia History of GI bleed, previously transferred to tertiary care center for GI services back on 11/24/2024, hemoglobin stable at 10.6 g/dL History of C. difficile colitis History of substance abuse/cocaine, urine drug toxicology screen negative History of carotid artery stenosis History of underlying COPD History of chronic mild interstitial lung disease Chronic thrombocytopenia secondary to alcoholism and alcohol use Plan: Patient is going to be admitted to the intensive care unit Continue [facility] protocol Continues on insulin fusion Continue IV fluids, normal saline at 200 mL/h Insert indwelling urinary catheter for accurate intake and output Repeat/monitor electrolytes per protocol Continue empiric antibiotics Obtain sputum and blood cultures Obtain urine Legionella antigen Viral Cepheid 4 Plex negative for influenza A/B, RSV, COVID Procalcitonin level pending Prognosis is guarded, secondary to above-mentioned comorbidities I have personally seen and examined the patient, performed the documentation and the assessment and plan as written. Number of minutes spent on the visit:20 This is a joint evaluation that was done along with the nurse practitioner. This evaluation was done and 35 minutes. The patient was seen and evaluated in the emergency department. The patient presented to us with hyperosmolar nonketotic diabetic state. The patient is currently on insulin drip and D5 half-normal saline which is running at a rate of 150 cc an hour. I reviewed the series of blood work that was done on this patient. Blood sugar control is improved and the most recent blood sugar is down to 354. Meanwhile, his anion gap is 11, serum bicarb is at 19, creatinine is also improving and is currently down to 1.87 with a BUN of 75. Procalcitonin level is at 4.33. Chest x-ray shows chronic interstitial changes, present on earlier chest x-rays and the findings are likely representation of an underlying ILD/fibrosis. Lactic acid level peaked at 3.1, dropped down to 1.9. No pressors. He is having a low-grade fever of 100.6 and based on that, the patient was given a combination of Rocephin and Zithromax. Cultures were also sent. Urine drug screen has been negative. Legionella urine antigen is negative. The viral 4 Plex has been negative. The patient is arousable although remains quite lethargic. The patient will be transferred to the intensive care unit for further treatment of his diabetic hyperosmolar nonketotic state. Will continue to follow. This is a clinical evaluation. This evaluation was done more than 30 minutes, specifically 33 minutes. Time with Patient: Greater than 30
[2024-12-26 07:02] LABS: Glucose,Whole Blood 177 mg/dL (70-110)
--- NOTE | 2024-12-26 08:11 | XR ---
EXAMINATION TYPE: XR chest 1V portable DATE OF EXAM: 12/26/2024 5:24 AM COMPARISON: Multiple radiographs, with the most recent on 12/25/2024 TECHNIQUE: XR chest 1V portable Portable AP radiograph of the chest. CLINICAL INDICATION:Male, 69 years old with history of pneumonia; FINDINGS: Lungs/Pleura: No pleural effusion or pneumothorax. Chronic elevation of the right hemidiaphragm. [place] lar bilateral multifocal airspace opacities. Pulmonary vascularity: Unremarkable. Heart/mediastinum: Cardiomediastinal silhouette is unremarkable. Musculoskeletal: No acute osseous pathology. IMPRESSION: Similar bilateral multifocal airspace opacities likely representing pneumonia. [facility], , 12/26/2024 8:09 AM
[2024-12-26 08:16] LABS: Glucose,Whole Blood 217 mg/dL (70-110)
[2024-12-26] MEDS: ACETAMINOPHEN TAB 325 MG TAB PO PRN (09:04)
[2024-12-26] MEDS: PANTOPRAZOLE 40 MG/10 ML VIAL IVP SCH (09:05)
[2024-12-26] MEDS: ENOXAPARIN 40 MG/0.4 ML SYRINGE SQ SCH (09:05)
[2024-12-26] MEDS: AZITHROMYCIN 500 MG in SODIUM CHLORIDE 0.9% 250 ML IVPB SCH (09:11)
[2024-12-26 09:12] LABS: Glucose,Whole Blood 179 mg/dL (70-110)
[2024-12-26 10:18] LABS: Glucose,Whole Blood 253 mg/dL (70-110)
[2024-12-26 11:22] LABS: Glucose,Whole Blood 252 mg/dL (70-110)
--- NOTE | 2024-12-26 11:35 | P.NPCON ---
History of Present Illness - Reason for Consult acute renal failure - History of Present Illness Patient is a 69-year-old male with history of hypertension, insulin-dependent diabetes, polysubstance abuse who presented to the hospital with altered mentation. Patient was noted to have a blood sugar of 951. Serum acetone was negative. Serum creatinine was 2.3 and has decreased to 1.8 today. Blood pressure has been low with systolic in the 80s. Maintained on MISHA inhibitors at home No fever noted Currently maintained on insulin drip Serum sodium 128 on initial admission currently at 140. Blood sugar has improved to 161-177 Lactic acid was elevated and decreased to 1.9. Recent acute kidney injury noted on 11/13/2024 with peak creatinine at 4.4 which improved to a creatinine of 1.2-1.5 as of 11/24/2024 Past Medical History Past Medical History: Chest Pain / Angina, Diabetes Mellitus, GERD/Reflux, Hypertension Additional Past Medical History / Comment(s): BACK PAIN, POSITIVE FOR BLOOD IN STOOL., SLIGHT [place]. History of Any Multi-Drug Resistant Organisms: None Reported Past Surgical History: Hernia Repair Additional Past Surgical History / Comment(s): NASAL SURGERY, RT ANKLE PINS & SCREWS. Past Anesthesia/Blood Transfusion Reactions: No Reported Reaction Past Psychological History: Depression Past Alcohol Use History: Occasional Past Drug Use History: None Reported - Past Family History Mother Family Medical History: No Reported History Medications and Allergies Home Medications Medication Instructions Recorded Confirmed Type Folic Acid 1 mg PO DAILY 12/25/24 12/25/24 History Insulin Glargine,Hum.rec.anlog 20 unit SQ DAILY 12/25/24 12/25/24 History [Insulin Glargine Solostar] Insulin Lispro [Insulin Lispro 4 unit SQ TID-W/MEALS 12/25/24 12/25/24 History Kwikpen U-100] Ipratropium-Albuterol Nebulize 3 ml INHALATION RT-QID PRN 12/25/24 12/25/24 History [Duoneb 0.5 mg-3 mg/3 ml Soln] Labetalol [Trandate] 100 mg PO TID@09,13,21 12/25/24 12/25/24 History Pantoprazole [Protonix] 40 mg PO BID 12/25/24 12/25/24 History Potassium Chloride ER [K-Dur 20] 40 meq PO DAILY 12/25/24 12/25/24 History lisinopriL [Zestril] 5 mg PO DAILY 12/25/24 12/25/24 History Allergies Allergy/AdvReac Type Severity Reaction Status Date / Time morphine Allergy Unknown Itching Verified 12/25/24 18:34 tramadol Allergy Unknown Itching Verified 12/25/24 18:34 Physical Exam Vitals: Vital Signs Temp Pulse Resp BP Pulse Ox 12/26/24 09:00 100.6 F H 122 H 22 104/55 94 L 12/26/24 08:00 18 107/71 98 12/26/24 07:31 124 H 22 112/54 94 L 12/26/24 06:33 118 H 22 110/58 95 12/26/24 04:00 99.6 F 118 H 22 108/56 95 12/26/24 03:00 112 H 22 112/56 95 12/26/24 02:00 108 H 20 118/65 96 12/26/24 01:00 100 20 100/60 94 L 12/26/24 00:00 97.8 F 101 H 20 96/49 94 L 12/25/24 23:00 97 20 112/90 98 12/25/24 22:27 89 20 12/25/24 22:14 96 20 12/25/24 22:00 96 18 102/57 95 12/25/24 21:45 96 20 99/54 100 12/25/24 21:15 97 22 92/58 92 L 12/25/24 19:44 87 18 113/61 95 12/25/24 18:58 88 30 H 85/56 99 12/25/24 18:24 97.7 F 82 30 H 91/52 99 Intake and Output 12/25/24 12/26/24 12/26/24 22:59 06:59 14:59 Intake Total 70.911 3.207 Output Total 350 1200 Balance -279.089 -1196.793 Intake: Intake, IV Titration 70.911 3.207 Amount Insulin Regular 100 unit 70.911 3.207 In Sodium Chloride 0.9% 100 ml @ 0.1 UNITS/KG/HR 8.704 mls/hr IV .[id number] [facility] Rx#:[id number] Output: Urine 350 1200 Uretheral (Puente) 350 Other: Weight 86.183 kg Patient is awake, comfortable, no acute distress. Confused Examination of the heart S1 and S2 Examination of the lungs bilateral breath sounds are heard Abdomen is soft nontender Examination of lower extremity shows no evidence of edema NURSE NAVIGATOR exam shows patient is moving all 4 extremities Results - Lab Results Most recent lab results Calcium 9.2 mg/dL (8.4-10.2) 12/25/24 19:11 Phosphorus 3.4 mg/dL (2.5-4.5) 12/26/24 04:09 Magnesium 2.1 mg/dL (1.6-2.3) 12/26/24 04:09 12/25/24 18:48 12/26/24 04:09 Assessment and Plan Assessment: 1. Acute kidney injury associated with volume depletion and ATN from hypotension, nonoliguric and improving 2. Mental status changes secondary to metabolic encephalopathy secondary to hyperosmolar nonketotic diabetic state with hyperglycemia and serum glucose of 951 on admission 3. Pseudohyponatremia associated with severe hyperglycemia, improved with improved blood sugars 4. History of C. difficile colitis 5. History of substance abuse/cocaine, urine drug screen negative this admission 6. [place] metabolic acidosis Plan: IV fluids Repeat labs in a.m. Continue to hold MISHA inhibitors Avoid any nephrotoxic agents Thank you for the consultation. We will continue to follow the patient with you during his hospitalization.
[2024-12-26 12:31] LABS: Glucose,Whole Blood 270 mg/dL (70-110)
[2024-12-26 13:20] LABS: Glucose,Whole Blood 285 mg/dL (70-110)
[2024-12-26 14:24] LABS: Glucose,Whole Blood 326 mg/dL (70-110)
[2024-12-26] MEDS ORDERED: IPRATROPIUM-ALBUTEROL 3 ML NEB INHALATION PRN (15:22)
--- NOTE | 2024-12-26 15:28 | P.PN ---
Subjective Progress Note Date: 12/26/24 Hospital Course: Is a 69-year-old male with past medical history of DM, HHS admissions, recurrent UTIs, history of substance use, history of carotid artery stenosis, COPD, interstitial lung disease, chronic thrombocytopenia secondary to alcoholism, C. difficile colitis November 2024, esophageal varices. Presented to the ER on 12/25, patient poor historian. Patient history obtained from . She reported that patient has not been eating a full meal since the and has not been taking his medications properly. Since then he has been having worsening shortness of breath, generalized weakness and confusion. He was also noted to be very dry and looks like he had a lot of weight loss. She noted that he had a nonproductive cough, and diarrhea. There was no noted fever, chest pain, changes in urination, extremity swelling, facial asymmetry, changes in speech, changes in vision, rec ent illness, or recent travel. On admission, brain CT showed no acute intracranial process. Chest x-ray showed multifocal airspace opacities to correlate for pneumonia and to exclude pulmonary edema. Labs on admission showed WBC 25, hemoglobin 10.6, MCV 99.9, platelet count 266,000, PT 11.6, INR 1.1, PTT 28.3, sodium 128, potassium 7.7, chloride 103, bicarb 14, BUN 43, creatinine 2.3, glucose 951, lactic acid 2.5, calcium 9.2, magnesium 1.4, total bilirubin 0.7, AST 17, ALT 17, alk phos 136, ammonia less than 9, albumin 2.7. Acetone negative. Cepheid 4 negative. VBG pH 7.21, pCO2 42, bicarb 17. Vitals on admission temperature 97.7F, pulse rate 82, respiratory rate 30, blood pressure 91/52, oxygen 99% on 4 L nasal cannula. Patient was admitted for acute metabolic encephalopathy, HHS, hyperkalemic emergency, started on insulin drip, nephrology consulted, MISHA inhibitor on hold. He was also started on azithromycin and ceftriaxone for possible community-acquired pneumonia. Pertinent Imaging: Chest x-ray this a.m. showed similar bilateral multifocal airspace opacities, pneumonia Subjective: Patient complains of shortness of breath Pertinent positives and negatives as discussed above, a complete review of systems was performed and all other systems are negative. Vitals Signs Reviewed. General: [nontoxic], [toxic appearing, ill-appearing Derm: [warm], [dry] Head: [atraumatic], [normocephalic], [symmetric] Eyes: [EOMI], [no lid lag], [anicteric sclera] Mouth: [no lip lesion], [mucus membranes moist] Cardiovascular: [S1S2 reg], [no murmur] Lungs: [Coarse breath sounds Abdominal: [soft], [ nontender to palpation], [no guarding], [no appreciable organomegaly] Ext: [no gross muscle atrophy], [no edema], [no contractures] Neuro: [ CN II-XI grossly intact], [no focal neuro deficits] Psych: [Alert], [ Data Reviewed Today: Pertinent Labs: Sodium 144, potassium 4.9, bicarb 19, anion gap 11, creatinine 1.87, improving, glucose 178, osmolality 319, lactate 1.9, procalcitonin 4.23 Assessment and Plan:#. Acute metabolic encephalopathy HHS Pseudohyponatremia secondary to above Nonaniongap metabolic acidosis secondary to above Lactic acidosis secondary to above -ammonia less than 9, acteone negative -bicarb 14 -Insulin drip initiated in the ED. Continue with insulin drip until glucose drops to <250. Maintain glucose levels at 200-250 -patient on insulin drip for HHS treatment , serum osmolality at goal, however still hyperglycemic above 300 -Repeat serum osmolality ordered -BMP every 4 hours -Check phosphorus every 4 hours -Cardiac telemetry -Fall precautions Hyperkalemic emergency secondary to HHS LATOYA secondary to volume depletion, ATN, nonoliguric -Nephrology following, holding MISHA, continue IV fluids -Monitor BMP Hypomagnesemia - magnesium 1.4 - Replete magnesium. Check magnesium after repletion Acute hypoxic respiratory failure secondary to community-acquired pneumonia -Per , patient had a cough in the past few days -Patient is short of breath at this time, has crackles in the bibasilar area -Continue with Zithromax 500 mg IVPB daily. Initiate Rocephin 2 g IVP daily SOT 12/25 -Monitor CBC -blood cultures, sputum cultures, and urine legionella Chronic Conditions: GERD Hypertension, currently hypotensive Depression History of C. difficile -Hold home labetalol 100 3 times daily, holding home lisinopril in the settings of LATOYA, holding home potassium chloride, resumed home folic acid 1 mg N: N.p.o. DVT ppx: Lovenox 40 mg SQ daily Dispo: The patient is admitted with an anticipated greater than than 2 midnight stay for evaluation of DKA Anticipated discharge place: tbd Objective - Vital Signs Vital signs: Vital Signs Temp 98.7 F 12/26/24 13:25 Pulse 112 H 12/26/24 13:25 Resp 22 12/26/24 13:25 BP 106/50 12/26/24 13:25 Pulse Ox 96 12/26/24 13:25 FiO2 Intake & Output 12/25/24 12/26/24 12/26/24 18:59 06:59 18:59 Intake Total 70.911 5.469 Output Total 350 1200 Balance -279.089 -1194.531 Weight 86.183 kg Intake: Intake, IV Titration 70.911 5.469 Amount Insulin Regular 100 unit 70.911 5.469 In Sodium Chloride 0.9% 100 ml @ 0.1 UNITS/KG/HR 8.704 mls/hr IV .[id number] [facility] Rx#:[id number] Output: Urine 350 1200 Uretheral (Puente) 350 - Labs CBC & Chem 7: 12/25/24 18:48 12/26/24 04:09 Labs: Abnormal Lab Results - Last 24 Hours (Table) 12/25/24 12/25/24 12/25/24 Range/Units 18:48 18:48 18:48 WBC 25.0 H (3.8-10.6) k/uL RBC 3.67 L (4.30-5.90) m/uL Hgb 10.6 L (13.0-17.5) gm/dL Hct 36.7 L (39.0-53.0) % MCHC 29.0 L (31.0-37.0) g/dL RDW 15.8 H (11.5-15.5) % Neutrophils # 22.0 H (1.3-7.7) k/uL Monocytes # 1.1 H (0-1.0) k/uL VBG pH 7.21 L (7.31-7.41) VBG HCO3 17 L (24-28) mmol/L Sodium (137-145) mmol/L Potassium (3.5-5.1) mmol/L Chloride (98-107) mmol/L Carbon Dioxide (22-30) mmol/L BUN (9-20) mg/dL Creatinine (0.66-1.25) mg/dL Glucose (74-99) mg/dL POC Glucose (mg/dL) (70-110) mg/dL Osmolality (275-295) mOsm/kg Plasma Lactic Acid Evaristo 2.5 H* (0.7-2.0) mmol/L Magnesium (1.6-2.3) mg/dL Alkaline Phosphatase (38-126) U/L Albumin (3.5-5.0) g/dL Procalcitonin (0.02-0.50) ng/mL Urine Protein (Negative) Urine Glucose (UA) (Negative) Urine Blood (Negative) Urine Bacteria (None) /hpf Urine Mucus (None) /hpf 12/25/24 12/25/24 12/25/24 Range/Units 19:07 19:11 21:03 WBC (3.8-10.6) k/uL RBC (4.30-5.90) m/uL Hgb (13.0-17.5) gm/dL Hct (39.0-53.0) % MCHC (31.0-37.0) g/dL RDW (11.5-15.5) % Neutrophils # (1.3-7.7) k/uL Monocytes # (0-1.0) k/uL VBG pH (7.31-7.41) VBG HCO3 (24-28) mmol/L Sodium 128 L (137-145) mmol/L Potassium 7.7 H* (3.5-5.1) mmol/L Chloride (98-107) mmol/L Carbon Dioxide 14 L (22-30) mmol/L BUN 43 H (9-20) mg/dL Creatinine 2.30 H (0.66-1.25) mg/dL Glucose 951 H* (74-99) mg/dL POC Glucose (mg/dL) >600 H* (70-110) mg/dL Osmolality (275-295) mOsm/kg Plasma Lactic Acid Evaristo (0.7-2.0) mmol/L Magnesium 1.4 L (1.6-2.3) mg/dL Alkaline Phosphatase 136 H (38-126) U/L Albumin 2.7 L (3.5-5.0) g/dL Procalcitonin (0.02-0.50) ng/mL Urine Protein Trace H (Negative) Urine Glucose (UA) 4+ H (Negative) Urine Blood Trace H (Negative) Urine Bacteria Rare H (None) /hpf Urine Mucus Rare H (None) /hpf 12/25/24 12/25/24 12/25/24 Range/Units 21:38 21:50 22:01 WBC (3.8-10.6) k/uL RBC (4.30-5.90) m/uL Hgb (13.0-17.5) gm/dL Hct (39.0-53.0) % MCHC (31.0-37.0) g/dL RDW (11.5-15.5) % Neutrophils # (1.3-7.7) k/uL Monocytes # (0-1.0) k/uL VBG pH (7.31-7.41) VBG HCO3 (24-28) mmol/L Sodium (137-145) mmol/L Potassium (3.5-5.1) mmol/L Chloride (98-107) mmol/L Carbon Dioxide (22-30) mmol/L BUN (9-20) mg/dL Creatinine (0.66-1.25) mg/dL Glucose (74-99) mg/dL POC Glucose (mg/dL) >600 H* (70-110) mg/dL Osmolality 342 H (275-295) mOsm/kg Plasma Lactic Acid Evaristo 2.3 H* (0.7-2.0) mmol/L Magnesium (1.6-2.3) mg/dL Alkaline Phosphatase (38-126) U/L Albumin (3.5-5.0) g/dL Procalcitonin (0.02-0.50) ng/mL Urine Protein (Negative) Urine Glucose (UA) (Negative) Urine Blood (Negative) Urine Bacteria (None) /hpf Urine Mucus (None) /hpf 12/25/24 12/26/24 12/26/24 Range/Units 23:09 00:00 00:00 WBC (3.8-10.6) k/uL RBC (4.30-5.90) m/uL Hgb (13.0-17.5) gm/dL Hct (39.0-53.0) % MCHC (31.0-37.0) g/dL RDW (11.5-15.5) % Neutrophils # (1.3-7.7) k/uL Monocytes # (0-1.0) k/uL VBG pH (7.31-7.41) VBG HCO3 (24-28) mmol/L Sodium (137-145) mmol/L Potassium 5.2 H (3.5-5.1) mmol/L Chloride 111 H (98-107) mmol/L Carbon Dioxide 15 L (22-30) mmol/L BUN 39 H (9-20) mg/dL Creatinine 1.98 H (0.66-1.25) mg/dL Glucose 475 H (74-99) mg/dL POC Glucose (mg/dL) >600 H* (70-110) mg/dL Osmolality 324 H (275-295) mOsm/kg Plasma Lactic Acid Evaristo (0.7-2.0) mmol/L Magnesium (1.6-2.3) mg/dL Alkaline Phosphatase (38-126) U/L Albumin (3.5-5.0) g/dL Procalcitonin 4.33 H (0.02-0.50) ng/mL Urine Protein (Negative) Urine Glucose (UA) (Negative) Urine Blood (Negative) Urine Bacteria (None) /hpf Urine Mucus (None) /hpf 12/26/24 12/26/24 12/26/24 Range/Units 00:08 00:30 01:09 WBC (3.8-10.6) k/uL RBC (4.30-5.90) m/uL Hgb (13.0-17.5) gm/dL Hct (39.0-53.0) % MCHC (31.0-37.0) g/dL RDW (11.5-15.5) % Neutrophils # (1.3-7.7) k/uL Monocytes # (0-1.0) k/uL VBG pH (7.31-7.41) VBG HCO3 (24-28) mmol/L Sodium (137-145) mmol/L Potassium (3.5-5.1) mmol/L Chloride (98-107) mmol/L Carbon Dioxide (22-30) mmol/L BUN (9-20) mg/dL Creatinine (0.66-1.25) mg/dL Glucose (74-99) mg/dL POC Glucose (mg/dL) 569 H* 438 H (70-110) mg/dL Osmolality (275-295) mOsm/kg Plasma Lactic Acid Evaristo 3.0 H* (0.7-2.0) mmol/L Magnesium (1.6-2.3) mg/dL Alkaline Phosphatase (38-126) U/L Albumin (3.5-5.0) g/dL Procalcitonin (0.02-0.50) ng/mL Urine Protein (Negative) Urine Glucose (UA) (Negative) Urine Blood (Negative) Urine Bacteria (None) /hpf Urine Mucus (None) /hpf 12/26/24 12/26/24 12/26/24 Range/Units 02:04 03:02 04:04 WBC (3.8-10.6) k/uL RBC (4.30-5.90) m/uL Hgb (13.0-17.5) gm/dL Hct (39.0-53.0) % MCHC (31.0-37.0) g/dL RDW (11.5-15.5) % Neutrophils # (1.3-7.7) k/uL Monocytes # (0-1.0) k/uL VBG pH (7.31-7.41) VBG HCO3 (24-28) mmol/L Sodium (137-145) mmol/L Potassium (3.5-5.1) mmol/L Chloride (98-107) mmol/L Carbon Dioxide (22-30) mmol/L BUN (9-20) mg/dL Creatinine (0.66-1.25) mg/dL Glucose (74-99) mg/dL POC Glucose (mg/dL) 369 H 285 H 168 H (70-110) mg/dL Osmolality (275-295) mOsm/kg Plasma Lactic Acid Evaristo (0.7-2.0) mmol/L Magnesium (1.6-2.3) mg/dL Alkaline Phosphatase (38-126) U/L Albumin (3.5-5.0) g/dL Procalcitonin (0.02-0.50) ng/mL Urine Protein (Negative) Urine Glucose (UA) (Negative) Urine Blood (Negative) Urine Bacteria (None) /hpf Urine Mucus (None) /hpf 12/26/24 12/26/24 12/26/24 Range/Units 04:09 04:09 04:09 WBC (3.8-10.6) k/uL RBC (4.30-5.90) m/uL Hgb (13.0-17.5) gm/dL Hct (39.0-53.0) % MCHC (31.0-37.0) g/dL RDW (11.5-15.5) % Neutrophils # (1.3-7.7) k/uL Monocytes # (0-1.0) k/uL VBG pH (7.31-7.41) VBG HCO3 (24-28) mmol/L Sodium (137-145) mmol/L Potassium (3.5-5.1) mmol/L Chloride 114 H (98-107) mmol/L Carbon Dioxide 19 L (22-30) mmol/L BUN 35 H (9-20) mg/dL Creatinine 1.87 H (0.66-1.25) mg/dL Glucose 178 H (74-99) mg/dL POC Glucose (mg/dL) (70-110) mg/dL Osmolality 319 H (275-295) mOsm/kg Plasma Lactic Acid Evaristo 3.1 H* (0.7-2.0) mmol/L Magnesium (1.6-2.3) mg/dL Alkaline Phosphatase (38-126) U/L Albumin (3.5-5.0) g/dL Procalcitonin (0.02-0.50) ng/mL Urine Protein (Negative) Urine Glucose (UA) (Negative) Urine Blood (Negative) Urine Bacteria (None) /hpf Urine Mucus (None) /hpf 12/26/24 12/26/24 12/26/24 Range/Units 04:59 06:09 07:00 WBC (3.8-10.6) k/uL RBC (4.30-5.90) m/uL Hgb (13.0-17.5) gm/dL Hct (39.0-53.0) % MCHC (31.0-37.0) g/dL RDW (11.5-15.5) % Neutrophils # (1.3-7.7) k/uL Monocytes # (0-1.0) k/uL VBG pH (7.31-7.41) VBG HCO3 (24-28) mmol/L Sodium (137-145) mmol/L Potassium (3.5-5.1) mmol/L Chloride (98-107) mmol/L Carbon Dioxide (22-30) mmol/L BUN (9-20) mg/dL Creatinine (0.66-1.25) mg/dL Glucose (74-99) mg/dL POC Glucose (mg/dL) 240 H 161 H 177 H (70-110) mg/dL Osmolality (275-295) mOsm/kg Plasma Lactic Acid Evaristo (0.7-2.0) mmol/L Magnesium (1.6-2.3) mg/dL Alkaline Phosphatase (38-126) U/L Albumin (3.5-5.0) g/dL Procalcitonin (0.02-0.50) ng/mL Urine Protein (Negative) Urine Glucose (UA) (Negative) Urine Blood (Negative) Urine Bacteria (None) /hpf Urine Mucus (None) /hpf 12/26/24 12/26/24 12/26/24 Range/Units 08:12 09:10 10:15 WBC (3.8-10.6) k/uL RBC (4.30-5.90) m/uL Hgb (13.0-17.5) gm/dL Hct (39.0-53.0) % MCHC (31.0-37.0) g/dL RDW (11.5-15.5) % Neutrophils # (1.3-7.7) k/uL Monocytes # (0-1.0) k/uL VBG pH (7.31-7.41) VBG HCO3 (24-28) mmol/L Sodium (137-145) mmol/L Potassium (3.5-5.1) mmol/L Chloride (98-107) mmol/L Carbon Dioxide (22-30) mmol/L BUN (9-20) mg/dL Creatinine (0.66-1.25) mg/dL Glucose (74-99) mg/dL POC Glucose (mg/dL) 217 H 179 H 253 H (70-110) mg/dL Osmolality (275-295) mOsm/kg Plasma Lactic Acid Evaristo (0.7-2.0) mmol/L Magnesium (1.6-2.3) mg/dL Alkaline Phosphatase (38-126) U/L Albumin (3.5-5.0) g/dL Procalcitonin (0.02-0.50) ng/mL Urine Protein (Negative) Urine Glucose (UA) (Negative) Urine Blood (Negative) Urine Bacteria (None) /hpf Urine Mucus (None) /hpf 12/26/24 12/26/24 12/26/24 Range/Units 11:20 12:25 13:19 WBC (3.8-10.6) k/uL RBC (4.30-5.90) m/uL Hgb (13.0-17.5) gm/dL Hct (39.0-53.0) % MCHC (31.0-37.0) g/dL RDW (11.5-15.5) % Neutrophils # (1.3-7.7) k/uL Monocytes # (0-1.0) k/uL VBG pH (7.31-7.41) VBG HCO3 (24-28) mmol/L Sodium (137-145) mmol/L Potassium (3.5-5.1) mmol/L Chloride (98-107) mmol/L Carbon Dioxide (22-30) mmol/L BUN (9-20) mg/dL Creatinine (0.66-1.25) mg/dL Glucose (74-99) mg/dL POC Glucose (mg/dL) 252 H 270 H 285 H (70-110) mg/dL Osmolality (275-295) mOsm/kg Plasma Lactic Acid Evaristo (0.7-2.0) mmol/L Magnesium (1.6-2.3) mg/dL Alkaline Phosphatase (38-126) U/L Albumin (3.5-5.0) g/dL Procalcitonin (0.02-0.50) ng/mL Urine Protein (Negative) Urine Glucose (UA) (Negative) Urine Blood (Negative) Urine Bacteria (None) /hpf Urine Mucus (None) /hpf 12/26/24 Range/Units 14:21 WBC (3.8-10.6) k/uL RBC (4.30-5.90) m/uL Hgb (13.0-17.5) gm/dL Hct (39.0-53.0) % MCHC (31.0-37.0) g/dL RDW (11.5-15.5) % Neutrophils # (1.3-7.7) k/uL Monocytes # (0-1.0) k/uL VBG pH (7.31-7.41) VBG HCO3 (24-28) mmol/L Sodium (137-145) mmol/L Potassium (3.5-5.1) mmol/L Chloride (98-107) mmol/L Carbon Dioxide (22-30) mmol/L BUN (9-20) mg/dL Creatinine (0.66-1.25) mg/dL Glucose (74-99) mg/dL POC Glucose (mg/dL) 326 H (70-110) mg/dL Osmolality (275-295) mOsm/kg Plasma Lactic Acid Evaristo (0.7-2.0) mmol/L Magnesium (1.6-2.3) mg/dL Alkaline Phosphatase (38-126) U/L Albumin (3.5-5.0) g/dL Procalcitonin (0.02-0.50) ng/mL Urine Protein (Negative) Urine Glucose (UA) (Negative) Urine Blood (Negative) Urine Bacteria (None) /hpf Urine Mucus (None) /hpf
[2024-12-26 15:58] LABS: Glucose,Whole Blood 354 mg/dL (70-110)
[2024-12-26 17:01] LABS: Glucose,Whole Blood 375 mg/dL (70-110)
[2024-12-26 18:15] LABS: Glucose,Whole Blood 386 mg/dL (70-110)
[2024-12-26 19:09] LABS: Glucose,Whole Blood 351 mg/dL (70-110)
[2024-12-26 20:19] LABS: Glucose,Whole Blood 296 mg/dL (70-110)
[2024-12-26] MEDS ORDERED: LABETALOL 100 MG TAB PO SCH (21:00)
[2024-12-26 21:05] LABS: Glucose,Whole Blood 257 mg/dL (70-110)
[2024-12-26 21:29] LABS: African American GFR (CKD) 53 (>60 ml/min/1.73 sqM); Anion Gap 13 mmol/L; Blood Urea Nitrogen 29 mg/dL (9-20); Calcium 9.4 mg/dL (8.4-10.2); Carbon Dioxide 15 mmol/L (22-30); Chloride 115 mmol/L (98-107); Glucose 297 mg/dL (74-99); Non-African American GFR(CKD) 46 (>60 ml/min/1.73 sqM); Sodium 143 mmol/L (137-145)
[2024-12-26 21:35] LABS: Phosphorus 4.1 mg/dL (2.5-4.5); Potassium 5.5 mmol/L (3.5-5.1)
[2024-12-26 22:20] LABS: Glucose,Whole Blood 230 mg/dL (70-110)
[2024-12-26] MEDS: INSULIN DETEMIR (LEVEMIR) 100 UNIT/ML SYR SQ SCH (22:33)
[2024-12-26] MEDS: VANCOMYCIN 1,500 MG in SODIUM CHLORIDE 0.9% 500 ML 500 ML IVPB SCH (22:36)
[2024-12-27 04:05] LABS: Glucose,Whole Blood 209 mg/dL (70-110)
[2024-12-27 06:05] LABS: ALT 19 U/L (4-49); AST 28 U/L (17-59); African American GFR (CKD) 69 (>60 ml/min/1.73 sqM); Albumin 2.5 g/dL (3.5-5.0); Alkaline Phosphatase 120 U/L (38-126); Anion Gap 11 mmol/L; Blood Urea Nitrogen 25 mg/dL (9-20); Calcium 9.4 mg/dL (8.4-10.2); Carbon Dioxide 17 mmol/L (22-30); Chloride 115 mmol/L (98-107); Glucose 220 mg/dL (74-99); Non-African American GFR(CKD) 59 (>60 ml/min/1.73 sqM); Potassium 4.8 mmol/L (3.5-5.1); Sodium 143 mmol/L (137-145); Total Bilirubin 0.7 mg/dL (0.2-1.3); Total Protein 6.4 g/dL (6.3-8.2)
[2024-12-27 06:26] LABS: Glucose,Whole Blood 232 mg/dL (70-110)
[2024-12-27] MEDS: INSULIN ASPART (NovoLOG) 100 UNIT/ML VIAL SQ SCH (06:30)
[2024-12-27 06:31] LABS: Anisocytosis Slight; Basophils # (A) 0.1 k/uL (0-0.2); Basophils % (A) 1 %; Eosinophils # (A) 0.2 k/uL (0-0.7); Eosinophils % (A) 1 %; HCT 33.8 % (39.0-53.0); HGB 10.3 gm/dL (13.0-17.5); Hypochromasia Marked; Lymphocytes # (A) 1.5 k/uL (1.0-4.8); Lymphocytes % (A) 7 %; MCH 28.9 pg (25.0-35.0); MCHC 30.4 g/dL (31.0-37.0); MCV 95.3 fL (80.0-100.0); Mean Platelet Volume 11.3; Monocytes # (A) 0.9 k/uL (0-1.0); Monocytes % (A) 4 %; Neutrophils # (A) 19.4 k/uL (1.3-7.7); Neutrophils % (A) 87 %; Platelet Count 308 k/uL (150-450); Poikilocytosis Slight; RBC 3.55 m/uL (4.30-5.90); RDW 16.3 % (11.5-15.5); WBC 22.4 k/uL (3.8-10.6)
[2024-12-27] MEDS: SODIUM CHLORIDE 0.45% 1,000 ML IV SCH (09:25)
[2024-12-27] MEDS: FOLIC ACID 1 MG TAB PO SCH (09:37)
--- NOTE | 2024-12-27 10:24 | CA ---
Transthoracic Echo Report Name: Audi Quinones Age: 69 Gender: M : 1955 Exam Date: 12/27/2024 07:37 Exam Location: [facility] Ht (in): 70 Wt (lb): 190 Ordering Physician: Selene Morley MD Attending/Referring Phys: Staff Physician Adeline Kyle RDCS Procedure CPT: Indications: r/o endocarditis Cardiac Hx: Technical Quality: Good Contrast 1: Total Dose (mL): Contrast 2: Total Dose (mL): MEASUREMENTS (Male / Female) Normal Values 2D ECHO LV Diastolic Diameter PLAX 4.4 cm 4.2 - 5.9 / 3.9 - 5.3 cm LV Systolic Diameter PLAX 2.9 cm IVS Diastolic Thickness 1.0 cm 0.6 - 1.0 / 0.6 - 0.9 cm LVPW Diastolic Thickness 1.0 cm 0.6 - 1.0 / 0.6 - 0.9 cm LV Relative Wall Thickness 0.5 RV Internal Dim ED PLAX 3.0 cm LA Systolic Diameter LX 3.0 cm 3.0 - 4.0 / 2.7 - 3.8 cm LV Diastolic Volume MOD BP 96.9 cm??? 67 - 155 / 56 - 104 cm??? LV Systolic Volume MOD BP 31.5 cm??? 22 - 58 / 19 - 49 cm??? LV Ejection Fraction MOD BP 67.4 % >= 55 % LV Cardiac Index MOD BP 3425.2 cm???/min???m??? LV Diastolic Volume MOD 4C 78.0 cm??? LV Systolic Volume MOD 4C 24.1 cm??? LV Ejection Fraction MOD 4C 69.1 % LV Cardiac Index MOD 4C 2827.9 cm???/min???m??? LV Diastolic Length 4C 6.7 cm LV Systolic Length 4C 5.8 cm LV Diastolic Volume MOD 2C 105.1 cm??? LV Systolic Volume MOD 2C 38.4 cm??? LV Ejection Fraction MOD 2C 63.4 % LV Cardiac Index MOD 2C 3496.5 cm???/min???m??? LV Diastolic Length 2C 7.7 cm LV Systolic Length 2C 6.5 cm LA Volume 38.9 cm??? 18 - 58 / 22 - 52 cm??? LA Volume Index 18.7 cm???/m??? 16 - 28 cm???/m??? M-MODE Aortic Root Diameter MM 3.2 cm DOPPLER MV Area PHT 4.2 cm??? Mitral E Point Velocity 98.3 cm/s Mitral A Point Velocity 124.6 cm/s Mitral E to A Ratio 0.8 MV Deceleration Time 182.8 ms FINDINGS Left Ventricle Left ventricular ejection fraction is estimated at 55-60 %. Left ventricular cavity size normal. Left ventricular wall thickness normal. No obvious regional wall motion abnormalities. Right Ventricle Normal right ventricular size and function. Unable to estimate the right ventricular systolic pressure. Right Atrium Normal right atrial size. No right atrial thrombus or mass seen. Left Atrium Normal left atrial size. No left atrial thrombus or mass present. Mitral Valve Structurally normal mitral valve. No mitral stenosis, regurgitation or prolapse. No evidence of vegetation on the mitral valve. Aortic Valve Trileaflet aortic valve. No aortic valve stenosis or regurgitation. No evidence of vegetation on the aortic valve. Tricuspid Valve Structurally normal tricuspid valve. No tricuspid stenosis, regurgitation or prolapse. No evidence of tricuspid valve vegetation. Pulmonic Valve Structurally normal pulmonic valve. No evidence of pulmonic valve vegetation. Pericardium No pericardial effusion. Aorta Normal size aortic root and proximal ascending aorta. CONCLUSIONS Normal biventricular dimension and systolic function Overall normal intracardiac valves No pericardial effusion Normal aortic root and proximal ascending aorta The pulmonary artery systolic pressure was not calculated Previewed by: Dr. Richard Sanchez MD (Electronically Signed) Final Date: 27 December 2024 10:23
[2024-12-27 11:11] LABS: Glucose,Whole Blood 247 mg/dL (70-110)
--- NOTE | 2024-12-27 11:50 | P.PN ---
Subjective Patient is seen for follow-up for acute kidney injury. Renal function has improved with serum creatinine down to 1.2. No significant complaints Blood sugars remain elevated and IV fluids were switched to half-normal saline's morning. Good urine output. Objective - Vital Signs Vital signs: Vital Signs Temp 98.8 F 12/27/24 08:30 Pulse 101 H 12/27/24 11:00 Resp 20 12/27/24 10:00 BP 116/64 12/27/24 10:00 Pulse Ox 95 12/27/24 10:00 FiO2 Intake & Output 12/26/24 12/27/24 12/27/24 18:59 06:59 18:59 Intake Total 14.454 3.696 150 Output Total 1200 1180 295 Balance -1185.546 -1176.304 -145 Weight 79.8 kg Intake: Intake, IV Titration 14.454 3.696 150 Amount Insulin Regular 100 unit 14.454 3.696 In Sodium Chloride 0.9% 100 ml @ 0.1 UNITS/KG/HR 8.704 mls/hr IV .[id number] [facility] Rx#:[id number] Sodium Chloride 0.45% 1, 150 000 ml @ 75 mls/hr IV . [id number] [facility] Rx#:[id number] Output: Urine 1200 1180 295 Other: Voiding Method Indwelling Catheter Indwelling Catheter # Bowel Movements 1 - Exam Patient is awake, comfortable, no acute distress. 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 - Labs CBC & Chem 7: 12/27/24 04:56 12/27/24 04:56 Labs: Abnormal Lab Results - Last 24 Hours (Table) 12/26/24 12/26/24 12/26/24 Range/Units 00:00 04:09 12:25 WBC (3.8-10.6) k/uL RBC (4.30-5.90) m/uL Hgb (13.0-17.5) gm/dL Hct (39.0-53.0) % MCHC (31.0-37.0) g/dL RDW (11.5-15.5) % Neutrophils # (1.3-7.7) k/uL Potassium (3.5-5.1) mmol/L Chloride (98-107) mmol/L Carbon Dioxide (22-30) mmol/L BUN (9-20) mg/dL Creatinine (0.66-1.25) mg/dL Glucose (74-99) mg/dL POC Glucose (mg/dL) 270 H (70-110) mg/dL Osmolality 324 H 319 H (275-295) mOsm/kg Albumin (3.5-5.0) g/dL 12/26/24 12/26/24 12/26/24 Range/Units 13:19 14:21 15:57 WBC (3.8-10.6) k/uL RBC (4.30-5.90) m/uL Hgb (13.0-17.5) gm/dL Hct (39.0-53.0) % MCHC (31.0-37.0) g/dL RDW (11.5-15.5) % Neutrophils # (1.3-7.7) k/uL Potassium (3.5-5.1) mmol/L Chloride (98-107) mmol/L Carbon Dioxide (22-30) mmol/L BUN (9-20) mg/dL Creatinine (0.66-1.25) mg/dL Glucose (74-99) mg/dL POC Glucose (mg/dL) 285 H 326 H 354 H (70-110) mg/dL Osmolality (275-295) mOsm/kg Albumin (3.5-5.0) g/dL 12/26/24 12/26/24 12/26/24 Range/Units 17:00 18:14 19:08 WBC (3.8-10.6) k/uL RBC (4.30-5.90) m/uL Hgb (13.0-17.5) gm/dL Hct (39.0-53.0) % MCHC (31.0-37.0) g/dL RDW (11.5-15.5) % Neutrophils # (1.3-7.7) k/uL Potassium (3.5-5.1) mmol/L Chloride (98-107) mmol/L Carbon Dioxide (22-30) mmol/L BUN (9-20) mg/dL Creatinine (0.66-1.25) mg/dL Glucose (74-99) mg/dL POC Glucose (mg/dL) 375 H 386 H 351 H (70-110) mg/dL Osmolality (275-295) mOsm/kg Albumin (3.5-5.0) g/dL 12/26/24 12/26/24 12/26/24 Range/Units 20:17 20:24 20:24 WBC (3.8-10.6) k/uL RBC (4.30-5.90) m/uL Hgb (13.0-17.5) gm/dL Hct (39.0-53.0) % MCHC (31.0-37.0) g/dL RDW (11.5-15.5) % Neutrophils # (1.3-7.7) k/uL Potassium 5.5 H (3.5-5.1) mmol/L Chloride 115 H (98-107) mmol/L Carbon Dioxide 15 L (22-30) mmol/L BUN 29 H (9-20) mg/dL Creatinine 1.53 H (0.66-1.25) mg/dL Glucose 297 H (74-99) mg/dL POC Glucose (mg/dL) 296 H (70-110) mg/dL Osmolality 316 H (275-295) mOsm/kg Albumin (3.5-5.0) g/dL 12/26/24 12/26/24 12/27/24 Range/Units 21:03 22:18 04:03 WBC (3.8-10.6) k/uL RBC (4.30-5.90) m/uL Hgb (13.0-17.5) gm/dL Hct (39.0-53.0) % MCHC (31.0-37.0) g/dL RDW (11.5-15.5) % Neutrophils # (1.3-7.7) k/uL Potassium (3.5-5.1) mmol/L Chloride (98-107) mmol/L Carbon Dioxide (22-30) mmol/L BUN (9-20) mg/dL Creatinine (0.66-1.25) mg/dL Glucose (74-99) mg/dL POC Glucose (mg/dL) 257 H 230 H 209 H (70-110) mg/dL Osmolality (275-295) mOsm/kg Albumin (3.5-5.0) g/dL 12/27/24 12/27/24 12/27/24 Range/Units 04:56 04:56 06:24 WBC 22.4 H (3.8-10.6) k/uL RBC 3.55 L (4.30-5.90) m/uL Hgb 10.3 L (13.0-17.5) gm/dL Hct 33.8 L (39.0-53.0) % MCHC 30.4 L (31.0-37.0) g/dL RDW 16.3 H (11.5-15.5) % Neutrophils # 19.4 H (1.3-7.7) k/uL Potassium (3.5-5.1) mmol/L Chloride 115 H (98-107) mmol/L Carbon Dioxide 17 L (22-30) mmol/L BUN 25 H (9-20) mg/dL Creatinine (0.66-1.25) mg/dL Glucose 220 H (74-99) mg/dL POC Glucose (mg/dL) 232 H (70-110) mg/dL Osmolality (275-295) mOsm/kg Albumin 2.5 L (3.5-5.0) g/dL 12/27/24 Range/Units 11:09 WBC (3.8-10.6) k/uL RBC (4.30-5.90) m/uL Hgb (13.0-17.5) gm/dL Hct (39.0-53.0) % MCHC (31.0-37.0) g/dL RDW (11.5-15.5) % Neutrophils # (1.3-7.7) k/uL Potassium (3.5-5.1) mmol/L Chloride (98-107) mmol/L Carbon Dioxide (22-30) mmol/L BUN (9-20) mg/dL Creatinine (0.66-1.25) mg/dL Glucose (74-99) mg/dL POC Glucose (mg/dL) 247 H (70-110) mg/dL Osmolality (275-295) mOsm/kg Albumin (3.5-5.0) g/dL Microbiology - Last 24 Hours (Table) 12/25/24 21:00 Blood Culture Gram Stain - Preliminary Blood Blood Culture - Preliminary Presumptive MRSA Molecular ID Assessment and Plan Assessment: 1. Acute kidney injury associated with volume depletion and ATN from hypotension, nonoliguric and improving 2. Mental status changes secondary to metabolic encephalopathy secondary to hyperosmolar nonketotic diabetic state with hyperglycemia and serum glucose of 951 on admission 3. Pseudohyponatremia associated with severe hyperglycemia, improved with improved blood sugars 4. History of C. difficile colitis 5. History of substance abuse/cocaine, urine drug screen negative this admission 6. [place] metabolic acidosis associated with acute kidney injury Plan: Continue with IV fluids, agree with changing to half-normal saline Repeat labs in a.m. Add oral sodium bicarb Continue to hold MISHA inhibitors Avoid any nephrotoxic agents
--- NOTE | 2024-12-27 13:22 | P.PN ---
Subjective Progress Note Date: 12/27/24 Hospital Course: Is a 69-year-old male with past medical history of DM, HHS admissions, recurrent UTIs, history of substance use, history of carotid artery stenosis, COPD, interstitial lung disease, chronic thrombocytopenia secondary to alcoholism, C. difficile colitis November 2024, esophageal varices. Presented to the ER on 12/25, patient poor historian. Patient history obtained from . She reported that patient has not been eating a full meal since the and has not been taking his medications properly. Since then he has been having worsening shortness of breath, generalized weakness and confusion. He was also noted to be very dry and looks like he had a lot of weight loss. She noted that he had a nonproductive cough, and diarrhea. There was no noted fever, chest pain, changes in urination, extremity swelling, facial asymmetry, changes in speech, changes in vision, rec ent illness, or recent travel. On admission, brain CT showed no acute intracranial process. Chest x-ray showed multifocal airspace opacities to correlate for pneumonia and to exclude pulmonary edema. Labs on admission showed WBC 25, hemoglobin 10.6, MCV 99.9, platelet count 266,000, PT 11.6, INR 1.1, PTT 28.3, sodium 128, potassium 7.7, chloride 103, bicarb 14, BUN 43, creatinine 2.3, glucose 951, lactic acid 2.5, calcium 9.2, magnesium 1.4, total bilirubin 0.7, AST 17, ALT 17, alk phos 136, ammonia less than 9, albumin 2.7. Acetone negative. Cepheid 4 negative. VBG pH 7.21, pCO2 42, bicarb 17. Patient was admitted for acute metabolic encephalopathy, HHS, hyperkalemic jim gency, started on insulin drip, nephrology consulted, MISHA inhibitor on hold. He was started on azithromycin and ceftriaxone for possible community-acquired pneumonia. Insulin drip was discontinued on 12/27, patient was switched to basal bolus with Levemir 20 nightly, mealtime Humalog 8 units and sliding scale insulin, continued on IV fluids, kidney function is improving, nephrology following. TTE showed no acute abnormalities, normal EF. MRSA swab came back positive, patient was switched to vancomycin SOT 12/27, pending urine and blood cultures. Social work consulted, PT OT consulted, patient has history of medications noncompliance. Overall mental status significantly improved, patien t is able to ambulate, uses bathroom, will be transferred from ICU once a bed was available Pertinent Imaging: TTE showed normal systolic function, no pericardial effusion Subjective: Patient complains of shortness of breath Pertinent positives and negatives as discussed above, a complete review of systems was performed and all other systems are negative. Vitals Signs Reviewed. General: [nontoxic], [toxic appearing, ill-appearing Derm: [warm], [dry] Head: [atraumatic], [normocephalic], [symmetric] Eyes: [EOMI], [no lid lag], [anicteric sclera] Mouth: [no lip lesion], [mucus membranes moist] Cardiovascular: [S1S2 reg], [no murmur] Lungs: [Coarse breath sounds, bilateral crackles Abdominal: [soft], [ nontender to palpation], [no guarding], [no appreciable organomegaly] Ext: [no gross muscle atrophy], [no edema], [no contractures] Neuro: [ CN II-XI grossly intact], [no focal neuro deficits] Psych: [Alert], [oriented to self, place Data Reviewed Today: Pertinent Labs: S WBC 22.4, hemoglobin stable 10.3, platelet count normal, sodium and potassium normal, anion gap 11, bicarb 17, improving, blood glucose 220, normal liver enzymes Assessment and Plan:#. Acute metabolic encephalopathy, improving HHS, resolved Pseudohyponatremia secondary to above Nonaniongap metabolic acidosis secondary to above, improving Lactic acidosis secondary to above -Insulin drip discontinued, patient started on basal bolus but Levemir 20 at bedtime, Humalog 8 units AC 3 times daily, sliding scale insulin -BMP daily -Cardiac telemetry -Fall precautions -Stable, will be transferred from ICU, pending bed availability -Patient is noncompliant with his insulins, social work consulted, PT OT Hyperkalemic emergency secondary to HHS, resolved LATOYA secondary to volume depletion, ATN, nonoliguric -Nephrology following, holding MISHA, continue IV fluids, changed to half-normal saline -Added sodium bicarb oral -Monitor BMP Hypomagnesemia, resolved -Follow-up magnesium level Acute hypoxic respiratory failure secondary to community-acquired pneumonia, MRSA swab positive -Afebrile since 12/26 11 a.m., WBC trending down 25.0-22.4 -Antibiotics SOT 12/25, patient was initially on Rocephin and azithromycin, Legionella negative, MRSA swab positive, started on vancomycin on 12/27 -Monitor CBC -blood cultures, sputum cultures-pending, and urine legionella -negative urine Legionella Chronic Conditions: GERD Hypertension, currently hypotensive Depression History of C. difficile -Hold home labetalol 100 3 times daily, holding home lisinopril in the settings of LATOYA, holding home potassium chloride, resumed home folic acid 1 mg DVT ppx: Lovenox 40 mg SQ daily Dispo: The patient is admitted with an anticipated greater than than 2 midnight stay for evaluation of DKA Anticipated discharge place: tbd, PT OT consulted Objective - Vital Signs Vital signs: Vital Signs Temp 97.8 F 12/27/24 12:00 Pulse 108 H 12/27/24 12:00 Resp 27 H 12/27/24 12:00 BP 124/70 12/27/24 12:00 Pulse Ox 98 12/27/24 12:00 FiO2 Intake & Output 12/26/24 12/27/24 12/27/24 18:59 06:59 18:59 Intake Total 14.454 3.696 225 Output Total 1200 1180 520 Balance -1185.546 -1176.304 -295 Weight 79.8 kg Intake: Intake, IV Titration 14.454 3.696 225 Amount Insulin Regular 100 unit 14.454 3.696 In Sodium Chloride 0.9% 100 ml @ 0.1 UNITS/KG/HR 8.704 mls/hr IV .[id number] [facility] Rx#:[id number] Sodium Chloride 0.45% 1, 225 000 ml @ 75 mls/hr IV . [id number] [facility] Rx#:[id number] Output: Urine 1200 1180 520 Other: Voiding Method Indwelling Catheter Indwelling Catheter # Bowel Movements 1 - Labs CBC & Chem 7: 12/27/24 04:56 12/27/24 04:56 Labs: Abnormal Lab Results - Last 24 Hours (Table) 12/26/24 12/26/24 12/26/24 Range/Units 00:00 04:09 14:21 WBC (3.8-10.6) k/uL RBC (4.30-5.90) m/uL Hgb (13.0-17.5) gm/dL Hct (39.0-53.0) % MCHC (31.0-37.0) g/dL RDW (11.5-15.5) % Neutrophils # (1.3-7.7) k/uL Potassium (3.5-5.1) mmol/L Chloride (98-107) mmol/L Carbon Dioxide (22-30) mmol/L BUN (9-20) mg/dL Creatinine (0.66-1.25) mg/dL Glucose (74-99) mg/dL POC Glucose (mg/dL) 326 H (70-110) mg/dL Osmolality 324 H 319 H (275-295) mOsm/kg Albumin (3.5-5.0) g/dL 12/26/24 12/26/24 12/26/24 Range/Units 15:57 17:00 18:14 WBC (3.8-10.6) k/uL RBC (4.30-5.90) m/uL Hgb (13.0-17.5) gm/dL Hct (39.0-53.0) % MCHC (31.0-37.0) g/dL RDW (11.5-15.5) % Neutrophils # (1.3-7.7) k/uL Potassium (3.5-5.1) mmol/L Chloride (98-107) mmol/L Carbon Dioxide (22-30) mmol/L BUN (9-20) mg/dL Creatinine (0.66-1.25) mg/dL Glucose (74-99) mg/dL POC Glucose (mg/dL) 354 H 375 H 386 H (70-110) mg/dL Osmolality (275-295) mOsm/kg Albumin (3.5-5.0) g/dL 12/26/24 12/26/24 12/26/24 Range/Units 19:08 20:17 20:24 WBC (3.8-10.6) k/uL RBC (4.30-5.90) m/uL Hgb (13.0-17.5) gm/dL Hct (39.0-53.0) % MCHC (31.0-37.0) g/dL RDW (11.5-15.5) % Neutrophils # (1.3-7.7) k/uL Potassium (3.5-5.1) mmol/L Chloride (98-107) mmol/L Carbon Dioxide (22-30) mmol/L BUN (9-20) mg/dL Creatinine (0.66-1.25) mg/dL Glucose (74-99) mg/dL POC Glucose (mg/dL) 351 H 296 H (70-110) mg/dL Osmolality 316 H (275-295) mOsm/kg Albumin (3.5-5.0) g/dL 12/26/24 12/26/24 12/26/24 Range/Units 20:24 21:03 22:18 WBC (3.8-10.6) k/uL RBC (4.30-5.90) m/uL Hgb (13.0-17.5) gm/dL Hct (39.0-53.0) % MCHC (31.0-37.0) g/dL RDW (11.5-15.5) % Neutrophils # (1.3-7.7) k/uL Potassium 5.5 H (3.5-5.1) mmol/L Chloride 115 H (98-107) mmol/L Carbon Dioxide 15 L (22-30) mmol/L BUN 29 H (9-20) mg/dL Creatinine 1.53 H (0.66-1.25) mg/dL Glucose 297 H (74-99) mg/dL POC Glucose (mg/dL) 257 H 230 H (70-110) mg/dL Osmolality (275-295) mOsm/kg Albumin (3.5-5.0) g/dL 12/27/24 12/27/24 12/27/24 Range/Units 04:03 04:56 04:56 WBC 22.4 H (3.8-10.6) k/uL RBC 3.55 L (4.30-5.90) m/uL Hgb 10.3 L (13.0-17.5) gm/dL Hct 33.8 L (39.0-53.0) % MCHC 30.4 L (31.0-37.0) g/dL RDW 16.3 H (11.5-15.5) % Neutrophils # 19.4 H (1.3-7.7) k/uL Potassium (3.5-5.1) mmol/L Chloride 115 H (98-107) mmol/L Carbon Dioxide 17 L (22-30) mmol/L BUN 25 H (9-20) mg/dL Creatinine (0.66-1.25) mg/dL Glucose 220 H (74-99) mg/dL POC Glucose (mg/dL) 209 H (70-110) mg/dL Osmolality 327 H (275-295) mOsm/kg Albumin 2.5 L (3.5-5.0) g/dL 12/27/24 12/27/24 Range/Units 06:24 11:09 WBC (3.8-10.6) k/uL RBC (4.30-5.90) m/uL Hgb (13.0-17.5) gm/dL Hct (39.0-53.0) % MCHC (31.0-37.0) g/dL RDW (11.5-15.5) % Neutrophils # (1.3-7.7) k/uL Potassium (3.5-5.1) mmol/L Chloride (98-107) mmol/L Carbon Dioxide (22-30) mmol/L BUN (9-20) mg/dL Creatinine (0.66-1.25) mg/dL Glucose (74-99) mg/dL POC Glucose (mg/dL) 232 H 247 H (70-110) mg/dL Osmolality (275-295) mOsm/kg Albumin (3.5-5.0) g/dL Microbiology - Last 24 Hours (Table) 12/25/24 21:00 Blood Culture Gram Stain - Preliminary Blood Blood Culture - Preliminary Presumptive MRSA Molecular ID
[2024-12-27 16:44] LABS: Glucose,Whole Blood 244 mg/dL (70-110)
[2024-12-27] MEDS: VANCOMYCIN 1,500 MG in SODIUM CHLORIDE 0.9% 500 ML 500 ML IVPB SCH (17:16)
[2024-12-27] MEDS: INSULIN LISPRO (HumaLOG) 100 UNIT/ML 10 mL VL SQ SCH (17:21)
--- NOTE | 2024-12-27 19:39 | P.PN ---
Subjective Progress Note Date: 12/27/24 Patient is a 69-year-old male with past medical history significant for hyperte nsion, insulin-dependent diabetes mellitus, polysubstance abuse, COPD. Patient presented emergency department late last night with a chief complaint evaluated blood sugars, AMS, generalized weakness, and dehydration. Found to have multiple metabolic abnormalities consistent with HHNS. Of note, patient recently admitted to the hospital back on 11/13/2024 for similar presentation and HHNS. Did develop upper GI bleed during this hospitalization, ultimately transferred to on 11/24/2024 [facility] for GI services. On arrival to the ED, initial blood glucose 951 mg/dL, serum bicarb 14, anion gap 11, acetone and ketone negative. He was started on HHS protocol. Also, blood pressure noted to be hypotensive, he has been fluid resuscitated with a total of 3.5 L normal saline so far, normal saline is infusing at 250 cc/h. Insulin infusing per protocol. Last [id number] glucose 569. Labs consistent with non-anion gap metabolic acidosis. Potassium was 7.7 mmol/L. He has received a dose of Lokelma, 1 amp sodium bicarb, 1 gram calcium gluconate. Repeat potassium levels pending. Remaining labs including CBC remarkable for leukocytosis with a WBC count of 25, hemoglobin is stable at 10.6 g/dL, platelets 266. Coagulation profile unremarkable. CMP includes a sodium 128, potassium 7.7, chloride 103, serum bicarb 14, anion gap 11, BUN 43, creatinine 2.3, glucose down to 569. Plasma osmolality 342. Lactic was 2.3. LFTs unremarkable. Ammonia less than 9. UA not concerning for UTI. Urine toxicology was negative on this admission. He is currently being a evaluated in the emergency department. He is obtunded, does withdraw to painful stimuli, will not hold sustained awakening or conversation. Blood pressure 96/49 mmHg, heart rate is tachycardic, sinus tachycardia. He is on 4 L/min nasal cannula with an SpO2 reading 92%. Appears nondistressed, breathing is nonlabored. Chest x-ray showing multifocal airspace disease concerning for pneumonia versus pulmonary edema. Cardiac silhouette stable, no pleural effusions, or pneumothoraces. Empirically started on combination of azithromycin and Zosyn in the ED. Brain CT did not show any acute intracranial process. Patient is going to be admitted to the intensive care unit once bed available. On 12/27/2024, the patient is being seen for a follow-up. The patient was seen in the intensive care unit. The patient was being treated for a hyperosmolar nonketotic state. The patient is improved considerably. The patient is currently on 4 L of oxygen by nasal cannula. IV fluids in the form of half-nor mal saline at 75 cc an hour. The patient has been taken off the insulin drip and the patient is currently on Lantus 20 units in addition to NovoLog 8 units with meals and sliding scale coverage. Doing well. No specific complaints. Most recent blood work shows a serum bicarb of 17, gap of 11, BUN 25 mg at 1.24 and the patient is recovering from his acute kidney injury. Sodium level is at 143 and potassium level is at 4.8. The white cell count of 22 with a heme of 10.3 and a platelet count of 308. Blood cultures presumptively staph and the patient is currently on IV vancomycin. He does have pulmonary fibrosis with chronic interstitial changes bilaterally. He is on 3 days of oxygen by nasal cannula with a pulse ox of 98%. Objective - Vital Signs Vital signs: Vital Signs Temp 99.2 F 12/27/24 04:03 Pulse 111 H 12/27/24 07:00 Resp 18 12/27/24 07:00 BP 122/60 12/27/24 07:00 Pulse Ox 100 12/27/24 05:00 FiO2 Intake & Output 12/26/24 12/27/24 12/27/24 18:59 06:59 18:59 Intake Total 14.454 3.696 Output Total 1200 1180 75 Balance -1185.546 -1176.304 -75 Weight 79.8 kg Intake: Intake, IV Titration 14.454 3.696 Amount Insulin Regular 100 unit 14.454 3.696 In Sodium Chloride 0.9% 100 ml @ 0.1 UNITS/KG/HR 8.704 mls/hr IV .[id number] [facility] Rx#:[id number] Output: Urine 1200 1180 75 Other: Voiding Method Indwelling Catheter - Exam GENERAL EXAM: Obtunded, 69-year-old -[place] male, no obvious distress. The patient is currently on 3 L of O2 nasal cannula HEAD: Normocephalic and atraumatic EYES: Normal reaction of pupils, equal size. No nystagmus, nonicteric sclera NOSE: Clear with pink turbinates. THROAT: No erythema or exudates. Dry mucous membranes. NECK: No masses, no JVD. CHEST: No chest wall deformity. LUNGS: Equal air entry with scattered rhonchi. No conversational dyspnea or accessory muscle use.. CVS: S1 and S2 normal with no audible murmur, regular rhythm. No extra heart sounds ABDOMEN: No hepatosplenomegaly, active bowel sounds, no guarding or rigidity. SPINE: No scoliosis or deformity SKIN: No rashes CENTRAL NERVOUS SYSTEM: No focal deficits, tone is normal in all 4 extremities. EXTREMITIES: There is no peripheral edema, clubbing, or cyanosis. Peripheral pulses are intact. - Labs CBC & Chem 7: 12/27/24 04:56 12/27/24 04:56 Labs: Abnormal Lab Results - Last 24 Hours (Table) 12/26/24 12/26/24 12/26/24 Range/Units 00:00 00:00 04:09 WBC (3.8-10.6) k/uL RBC (4.30-5.90) m/uL Hgb (13.0-17.5) gm/dL Hct (39.0-53.0) % MCHC (31.0-37.0) g/dL RDW (11.5-15.5) % Neutrophils # (1.3-7.7) k/uL Potassium (3.5-5.1) mmol/L Chloride (98-107) mmol/L Carbon Dioxide (22-30) mmol/L BUN (9-20) mg/dL Creatinine (0.66-1.25) mg/dL Glucose (74-99) mg/dL POC Glucose (mg/dL) (70-110) mg/dL Osmolality 324 H 319 H (275-295) mOsm/kg Albumin (3.5-5.0) g/dL Procalcitonin 4.33 H (0.02-0.50) ng/mL 12/26/24 12/26/24 12/26/24 Range/Units 09:10 10:15 11:20 WBC (3.8-10.6) k/uL RBC (4.30-5.90) m/uL Hgb (13.0-17.5) gm/dL Hct (39.0-53.0) % MCHC (31.0-37.0) g/dL RDW (11.5-15.5) % Neutrophils # (1.3-7.7) k/uL Potassium (3.5-5.1) mmol/L Chloride (98-107) mmol/L Carbon Dioxide (22-30) mmol/L BUN (9-20) mg/dL Creatinine (0.66-1.25) mg/dL Glucose (74-99) mg/dL POC Glucose (mg/dL) 179 H 253 H 252 H (70-110) mg/dL Osmolality (275-295) mOsm/kg Albumin (3.5-5.0) g/dL Procalcitonin (0.02-0.50) ng/mL 12/26/24 12/26/24 12/26/24 Range/Units 12:25 13:19 14:21 WBC (3.8-10.6) k/uL RBC (4.30-5.90) m/uL Hgb (13.0-17.5) gm/dL Hct (39.0-53.0) % MCHC (31.0-37.0) g/dL RDW (11.5-15.5) % Neutrophils # (1.3-7.7) k/uL Potassium (3.5-5.1) mmol/L Chloride (98-107) mmol/L Carbon Dioxide (22-30) mmol/L BUN (9-20) mg/dL Creatinine (0.66-1.25) mg/dL Glucose (74-99) mg/dL POC Glucose (mg/dL) 270 H 285 H 326 H (70-110) mg/dL Osmolality (275-295) mOsm/kg Albumin (3.5-5.0) g/dL Procalcitonin (0.02-0.50) ng/mL 12/26/24 12/26/24 12/26/24 Range/Units 15:57 17:00 18:14 WBC (3.8-10.6) k/uL RBC (4.30-5.90) m/uL Hgb (13.0-17.5) gm/dL Hct (39.0-53.0) % MCHC (31.0-37.0) g/dL RDW (11.5-15.5) % Neutrophils # (1.3-7.7) k/uL Potassium (3.5-5.1) mmol/L Chloride (98-107) mmol/L Carbon Dioxide (22-30) mmol/L BUN (9-20) mg/dL Creatinine (0.66-1.25) mg/dL Glucose (74-99) mg/dL POC Glucose (mg/dL) 354 H 375 H 386 H (70-110) mg/dL Osmolality (275-295) mOsm/kg Albumin (3.5-5.0) g/dL Procalcitonin (0.02-0.50) ng/mL 12/26/24 12/26/24 12/26/24 Range/Units 19:08 20:17 20:24 WBC (3.8-10.6) k/uL RBC (4.30-5.90) m/uL Hgb (13.0-17.5) gm/dL Hct (39.0-53.0) % MCHC (31.0-37.0) g/dL RDW (11.5-15.5) % Neutrophils # (1.3-7.7) k/uL Potassium (3.5-5.1) mmol/L Chloride (98-107) mmol/L Carbon Dioxide (22-30) mmol/L BUN (9-20) mg/dL Creatinine (0.66-1.25) mg/dL Glucose (74-99) mg/dL POC Glucose (mg/dL) 351 H 296 H (70-110) mg/dL Osmolality 316 H (275-295) mOsm/kg Albumin (3.5-5.0) g/dL Procalcitonin (0.02-0.50) ng/mL 12/26/24 12/26/24 12/26/24 Range/Units 20:24 21:03 22:18 WBC (3.8-10.6) k/uL RBC (4.30-5.90) m/uL Hgb (13.0-17.5) gm/dL Hct (39.0-53.0) % MCHC (31.0-37.0) g/dL RDW (11.5-15.5) % Neutrophils # (1.3-7.7) k/uL Potassium 5.5 H (3.5-5.1) mmol/L Chloride 115 H (98-107) mmol/L Carbon Dioxide 15 L (22-30) mmol/L BUN 29 H (9-20) mg/dL Creatinine 1.53 H (0.66-1.25) mg/dL Glucose 297 H (74-99) mg/dL POC Glucose (mg/dL) 257 H 230 H (70-110) mg/dL Osmolality (275-295) mOsm/kg Albumin (3.5-5.0) g/dL Procalcitonin (0.02-0.50) ng/mL 12/27/24 12/27/24 12/27/24 Range/Units 04:03 04:56 04:56 WBC 22.4 H (3.8-10.6) k/uL RBC 3.55 L (4.30-5.90) m/uL Hgb 10.3 L (13.0-17.5) gm/dL Hct 33.8 L (39.0-53.0) % MCHC 30.4 L (31.0-37.0) g/dL RDW 16.3 H (11.5-15.5) % Neutrophils # 19.4 H (1.3-7.7) k/uL Potassium (3.5-5.1) mmol/L Chloride 115 H (98-107) mmol/L Carbon Dioxide 17 L (22-30) mmol/L BUN 25 H (9-20) mg/dL Creatinine (0.66-1.25) mg/dL Glucose 220 H (74-99) mg/dL POC Glucose (mg/dL) 209 H (70-110) mg/dL Osmolality (275-295) mOsm/kg Albumin 2.5 L (3.5-5.0) g/dL Procalcitonin (0.02-0.50) ng/mL 12/27/24 Range/Units 06:24 WBC (3.8-10.6) k/uL RBC (4.30-5.90) m/uL Hgb (13.0-17.5) gm/dL Hct (39.0-53.0) % MCHC (31.0-37.0) g/dL RDW (11.5-15.5) % Neutrophils # (1.3-7.7) k/uL Potassium (3.5-5.1) mmol/L Chloride (98-107) mmol/L Carbon Dioxide (22-30) mmol/L BUN (9-20) mg/dL Creatinine (0.66-1.25) mg/dL Glucose (74-99) mg/dL POC Glucose (mg/dL) 232 H (70-110) mg/dL Osmolality (275-295) mOsm/kg Albumin (3.5-5.0) g/dL Procalcitonin (0.02-0.50) ng/mL Microbiology - Last 24 Hours (Table) 12/25/24 21:00 Blood Culture Gram Stain - Preliminary Blood Blood Culture - Preliminary Presumptive MRSA Molecular ID Assessment and Plan Assessment: Acute hyperglycemia with hyperosmolar nonketotic state, improved and the patient is currently off insulin drip transition to Lantus insulin 20 units along with NovoLog 5 units with meals and insulin scale coverage Acute metabolic encephalopathy, secondary to above, improved Severe dehydration, secondary to above, improved Non-anion gap metabolic acidosis, improved Severe hyperkalemia, improved Pseudohyponatremia, in the setting of severe hyperglycemia Acute kidney injury on top of chronic kidney disease, secondary to hypovolemia and intravascular volume depletion, improving MRSA sepsis, currently on vancomycin. Chronic pulmonary fibrosis with hypoxic respiratory failure, currently on 3 L of oxygen by nasal cannula History of GI bleed, previously transferred to tertiary care center for GI services back on 11/24/2024, History of C. difficile colitis History of substance abuse/cocaine, urine drug toxicology screen negative History of carotid artery stenosis History of underlying COPD History of chronic mild interstitial lung disease Chronic thrombocytopenia secondary to alcoholism and alcohol use Plan: Patient currently on Lantus insulin 20 units in addition to NovoLog 5 units with meals and a sliding scale coverage Monitor blood sugars Monitor electrolytes Blood cultures were noted Continue IV vancomycin Viral Cepheid 4 Plex negative for influenza A/B, RSV, COVID Procalcitonin level was elevated at 4.3 Condition stable and the patient will be transferred out of the intensive care unit today. Will continue to follow. Time with Patient: Greater than 30
[2024-12-27 20:51] LABS: Glucose,Whole Blood 193 mg/dL (70-110)
[2024-12-27] MEDS: SODIUM BICARBONATE TAB 650 MG TAB PO SCH (20:57)
[2024-12-27] MEDS: INSULIN GLARGINE (LANTUS) 100 UNIT/ML SYR SQ SCH (20:58)
[2024-12-27] MEDS ORDERED: VANCOMYCIN 1,500 MG in SODIUM CHLORIDE 0.9% 500 ML 500 ML IVPB SCH (22:00)
[2024-12-28 06:38] LABS: Glucose,Whole Blood 218 mg/dL (70-110)
[2024-12-28 11:14] LABS: ALT 21 U/L (10-49); AST 33 U/L (14-35); Albumin 2.4 g/dL (3.8-4.9); Albumin/Globulin Ratio 0.59 Ratio (1.60-3.17); Alkaline Phosphatase 171 U/L (41-126); BUN/Creat Ratio 13.45 Ratio (12.00-20.00); Blood Urea Nitrogen 14.8 mg/dL (9.0-27.0); Calcium 8.8 mg/dL (8.7-10.3); Carbon Dioxide 18.6 mmol/L (21.6-31.8); Chloride 106 mmol/L (96-109); Globulin 4.1 g/dL (1.6-3.3); Glucose 209 mg/dL (70-110); Sodium 137 mmol/L (135-145); Total Bilirubin 0.3 mg/dL (0.3-1.2); Total Protein 6.5 g/dL (6.2-8.2)
[2024-12-28 11:21] LABS: Glucose,Whole Blood 228 mg/dL (70-110)
[2024-12-28 11:32] LABS: Magnesium 0.9 mg/dL (1.5-2.4)
--- NOTE | 2024-12-28 11:56 | P.PN ---
Subjective Patient is seen for follow-up for acute kidney injury. Renal function has improved with serum creatinine down to 1.1. No significant complaints Maintained on 0.45% normal saline Good urine output. Objective - Vital Signs Vital signs: Vital Signs Temp 97.9 F 12/28/24 07:10 Pulse 122 H 12/28/24 08:00 Resp 19 12/28/24 07:10 BP 144/76 12/28/24 07:10 Pulse Ox 97 12/28/24 07:10 FiO2 Intake & Output 12/27/24 12/28/24 12/28/24 18:59 06:59 18:59 Intake Total 1175 2340 10 Output Total 695 Balance 480 2340 10 Weight 79.8 kg 74.5 kg Intake: IV 10 Invasive Line 3 10 Intake, IV Titration 1175 Amount Sodium Chloride 0.45% 1, 675 000 ml @ 75 mls/hr IV . [id number] [facility] Rx#:[id number] Vancomycin 1,500 mg In 500 Sodium Chloride 0.9% 500 ml 500 ml @ 167 mls/hr IVPB Q16H [facility] Rx#: [id number] Oral 2340 Output: Urine 695 Other: Voiding Method Indwelling Catheter Bedside Commode Urinal # Voids 1 6 # Bowel Movements 2 4 - Exam Patient is awake, comfortable, no acute distress. Examination of the heart S1 and S2 Examination of the lungs bilateral breath sounds are heard Abdomen is soft nontender Examination of lower extremity shows no evidence of edema [employer] exam shows patient is moving all 4 extremities - Labs CBC & Chem 7: 12/27/24 04:56 12/28/24 02:48 Labs: Abnormal Lab Results - Last 24 Hours (Table) 12/27/24 12/27/24 12/27/24 Range/Units 04:56 16:43 20:48 Carbon Dioxide (21.6-31.8) mmol/L Anion Gap (4.00-12.00) mmol/L Glucose (70-110) mg/dL POC Glucose (mg/dL) 244 H 193 H (70-110) mg/dL Osmolality 327 H (275-295) mOsm/kg Magnesium (1.5-2.4) mg/dL Alkaline Phosphatase (41-126) U/L Albumin (3.8-4.9) g/dL Globulin (1.6-3.3) g/dL Albumin/Globulin Ratio (1.60-3.17) Ratio 12/28/24 12/28/24 12/28/24 Range/Units 02:48 06:37 11:20 Carbon Dioxide 18.6 L (21.6-31.8) mmol/L Anion Gap 12.40 H (4.00-12.00) mmol/L Glucose 209 H (70-110) mg/dL POC Glucose (mg/dL) 218 H 228 H (70-110) mg/dL Osmolality (275-295) mOsm/kg Magnesium 0.9 A* (1.5-2.4) mg/dL Alkaline Phosphatase 171 H (41-126) U/L Albumin 2.4 L (3.8-4.9) g/dL Globulin 4.1 H (1.6-3.3) g/dL Albumin/Globulin Ratio 0.59 L (1.60-3.17) Ratio Microbiology - Last 24 Hours (Table) 12/25/24 21:00 Blood Culture Gram Stain - Preliminary Blood Blood Culture - Preliminary Presumptive MRSA Molecular ID Assessment and Plan Assessment: 1. Acute kidney injury associated with volume depletion and ATN from hypotension, nonoliguric and improving 2. Mental status changes secondary to metabolic encephalopathy secondary to hyperosmolar nonketotic diabetic state with hyperglycemia and serum glucose of 951 on admission 3. Pseudohyponatremia associated with severe hyperglycemia, improved with improved blood sugars 4. History of C. difficile colitis 5. History of substance abuse/cocaine, urine drug screen negative this admission 6. [place] metabolic acidosis associated with acute kidney injury Plan: Continue with IV fluids, switch to normal saline Repeat labs in a.m. Replace magnesium Continue to hold MISHA inhibitors Avoid any nephrotoxic agents
[2024-12-28] MEDS: MAGNESIUM SULFATE-D5W PMX 1 GM in DEXTROSE/WATER 1 100ML.BAG IVPB SCH (11:59)
[2024-12-28 12:38] LABS: Basophils # (A) 0.04 X 10*3/uL (0.00-0.10); Basophils % (A) 0.2 %; Eosinophils # (A) 0.19 X 10*3/uL (0.04-0.35); Eosinophils % (A) 0.8 %; HCT 32.1 % (39.6-50.0); HGB 9.9 g/dL (13.0-17.0); Lymphocytes % (A) 9.5 %; MCH 27.7 pg (27.0-32.0); MCHC 30.8 g/dL (32.0-37.0); MCV 89.9 FL (80.0-97.0); Mean Platelet Volume 12.7 FL (9.5-12.2); Monocytes # (A) 1.69 X 10*3/uL (0.20-1.00); Monocytes % (A) 6.7 %; NRBC Per 100 WBC 0 X 10*3/uL (0.00-0.01); Neutrophils # (A) 19.83 X 10*3/uL (1.80-7.70); Neutrophils % (A) 78.1 %; Platelet Count 289 X 10*3/uL (140-440); RBC 3.57 X 10*6/uL (4.40-5.60); RDW 16.5 % (11.5-14.5); WBC 25.33 X 10*3/uL (4.50-10.00)
--- NOTE | 2024-12-28 14:37 | P.CONS ---
History of Present Illness - Reason for Consult Consult date: 12/28/24 MRSA bacteremia Requesting physician: Kristian Berry - Chief Complaint Weakness cough x few days - History of Present Illness Patient is a 69-year-old -[place] male with a past medical history difficult for diabetes mellitus reflux hypertension pneumonia presenting to the hospital 3 days ago for evaluation of intermittent confusion and lethargy and this patient symptomatically has been getting worse since the 14th of this month patient also have a nonproductive cough but no vomiting or diarrhea reported on presentation to the hospital patient was initially febrile he did spike low- grade fever 100.6 F on 12/26/2024 and a temperature of 99.8 at last evening patient has been tachycardic but not hypotensive mildly hypoxic currently on 3 L nasal cannula oxygen patient did have white count of 25,000 with a left shift creatinine is 1.1 he did have elevated creatinine on admission lactic acid was elevated Pro-Everton's is 4.33 UA has been negative urine drug screen was negative influenza RSV COVID testing negative patient did have a chest x-ray on admission multifocal airspace opacities correlate for pneumonia patient did have blood cultures drawn which came back positive with MRSA prompting this consultation vancomycin has been added Review of Systems Positive point and negatives has been mentioned in the HPI, complete review of systems was performed and all other systems are negative Past Medical History Past Medical History: Chest Pain / Angina, Diabetes Mellitus, GERD/Reflux, GI Bleed, Hypertension, Pneumonia Additional Past Medical History / Comment(s): BACK PAIN, POSITIVE FOR BLOOD IN STOOL., SLIGHT [place]. History of Any Multi-Drug Resistant Organisms: MRSA Year Discovered:: 12/25/24 MDRO Source:: blood Past Surgical History: Hernia Repair Additional Past Surgical History / Comment(s): NASAL SURGERY, RT ANKLE PINS & SCREWS. Past Anesthesia/Blood Transfusion Reactions: No Reported Reaction Past Psychological History: Depression Smoking Status: Former smoker Past Alcohol Use History: Occasional Past Drug Use History: None Reported Additional Drug Use History / Comment(s): Daily etoh use per patient, states shes unsure of how much he drinks, they no longer live together - Past Family History Mother Family Medical History: No Reported History Medications and Allergies Home Medications Medication Instructions Recorded Confirmed Type Folic Acid 1 mg PO DAILY 12/25/24 12/25/24 History Insulin Glargine,Hum.rec.anlog 20 unit SQ DAILY 12/25/24 12/25/24 History [Insulin Glargine Solostar] Insulin Lispro [Insulin Lispro 4 unit SQ TID-W/MEALS 12/25/24 12/25/24 History Kwikpen U-100] Ipratropium-Albuterol Nebulize 3 ml INHALATION RT-QID PRN 12/25/24 12/25/24 History [Duoneb 0.5 mg-3 mg/3 ml Soln] Labetalol [Trandate] 100 mg PO TID@09,13,21 12/25/24 12/25/24 History Pantoprazole [Protonix] 40 mg PO BID 12/25/24 12/25/24 History Potassium Chloride ER [K-Dur 20] 40 meq PO DAILY 12/25/24 12/25/24 History lisinopriL [Zestril] 5 mg PO DAILY 12/25/24 12/25/24 History Allergies Allergy/AdvReac Type Severity Reaction Status Date / Time morphine Allergy Unknown Itching Verified 12/25/24 18:34 tramadol Allergy Unknown Itching Verified 12/25/24 18:34 Physical Exam Vitals: Vital Signs Temp Pulse Pulse Resp BP BP Pulse Ox 12/28/24 08:00 122 H 12/28/24 07:10 97.9 F 122 H 19 144/76 97 12/28/24 05:58 118 H 12/28/24 01:06 99.0 F 117 H 18 159/84 96 12/27/24 19:40 99.8 F H 118 H 18 154/77 97 12/27/24 13:00 112 H 12/27/24 12:00 97.8 F 108 H 27 H 124/70 98 12/27/24 11:00 101 H Intake and Output 12/27/24 12/28/24 12/28/24 22:59 06:59 14:59 Intake Total 1520 1620 10 Balance 1520 1620 10 Intake: IV 10 Invasive Line 3 10 Intake, IV Titration 800 Amount Sodium Chloride 0.45% 1, 300 000 ml @ 75 mls/hr IV . [id number] ANA MARÍA Rx#:[id number] Vancomycin 1,500 mg In 500 Sodium Chloride 0.9% 500 ml 500 ml @ 167 mls/hr IVPB Q16H ANA MARÍA Rx#: [id number] Oral 720 1620 Other: Voiding Method Bedside Commode Urinal # Voids 2 6 # Bowel Movements 2 4 Weight 74.5 kg GENERAL DESCRIPTION: Elderly male up in the chair, no distress. No tachypnea or accessory muscle of respiration use. HEENT: Shows Pallor , no scleral icterus. Oral mucous membrane is dry. No pharyngeal erythema or thrush NECK: Trachea central, no thyromegaly. LUNGS: Unlabored breathing. Decreased intensity breath sounds always. HEART: S1, S2, regular rate and rhythm. No loud murmur ABDOMEN: Soft, no tenderness , guarding or rigidity, no organomegaly EXTREMITIES: No edema of feet. SKIN: No rash, no masses palpable. NEUROLOGICAL: The patient is awake, alert, mood and affect normal. Results CBC & Chem 7: 12/28/24 02:48 12/28/24 02:48 Labs: Abnormal Lab Results - Last 24 Hours (Table) 12/27/24 12/27/24 12/27/24 Range/Units 04:56 11:09 16:43 POC Glucose (mg/dL) 247 H 244 H (70-110) mg/dL Osmolality 327 H (275-295) mOsm/kg 12/27/24 12/28/24 Range/Units 20:48 06:37 POC Glucose (mg/dL) 193 H 218 H (70-110) mg/dL Osmolality (275-295) mOsm/kg Microbiology - Last 24 Hours (Table) 12/25/24 21:00 Blood Culture Gram Stain - Preliminary Blood Blood Culture - Preliminary Presumptive MRSA Molecular ID Assessment and Plan (1) MRSA bacteremia Current Visit: Yes Status: Acute Code(s): R78.81 - BACTEREMIA; B95.62 - METHICILLIN RESIS STAPH INFCT CAUSING DISEASES [facility] SNOMED Code(s): 09774145034663326 (2) Pneumonia Current Visit: Yes Status: Acute Code(s): J18.9 - PNEUMONIA, UNSPECIFIED ORGANISM SNOMED Code(s): 123249432 (3) Sepsis Current Visit: Yes Status: Acute Code(s): A41.9 - SEPSIS, UNSPECIFIED ORGANISM SNOMED Code(s): 05399976 Plan: 1patient presented hospital with sepsis in this patient who did have fever tachycardia elevated white count meeting currently for SIRS source likely pneumonia now with evidence of MRSA bacteremia. 2patient with MRSA bacteremia source is likely pneumonia. 3blood culture repeated document clearance of his bacteremia. 4try to obtain a sputum for Gram stain and culture. 5vancomycin pharmacy to dose target trough of 15 while watching kidney function and Vanco trough closely. We will follow on clinical condition and cultures to further adjust medication if needed Thank you for this consultation we will follow the patient along with you Dictation was produced using [employer] dictation software. please excuse any g rammatical, word or spelling errors. Time with Patient: Greater than 30
--- NOTE | 2024-12-28 16:20 | P.PN ---
Subjective Progress Note Date: 12/28/24 Patient is a 69-year-old male with past medical history significant for hyperte nsion, insulin-dependent diabetes mellitus, polysubstance abuse, COPD. Patient presented emergency department late last night with a chief complaint evaluated blood sugars, AMS, generalized weakness, and dehydration. Found to have multiple metabolic abnormalities consistent with HHNS. Of note, patient recently admitted to the hospital back on 11/13/2024 for similar presentation and HHNS. Did develop upper GI bleed during this hospitalization, ultimately transferred to on 11/24/2024 [facility] for [facility] services. On arrival to the ED, initial blood glucose 951 mg/dL, serum bicarb 14, anion gap 11, acetone and ketone negative. He was started on HHS protocol. Also, blood pressure noted to be hypotensive, he has been fluid resuscitated with a total of 3.5 L normal saline so far, normal saline is infusing at 250 cc/h. Insulin infusing per protocol. Last pbtgw-mo-tzia glucose 569. Labs consistent with non-anion gap metabolic acidosis. Potassium was 7.7 mmol/L. He has received a dose of Lokelma, 1 amp sodium bicarb, 1 gram calcium gluconate. Repeat potassium levels pending. Remaining labs including CBC remarkable for leukocytosis with a WBC count of 25, hemoglobin is stable at 10.6 g/dL, platelets 266. Coagulation profile unremarkable. CMP includes a sodium 128, potassium 7.7, chloride 103, serum bicarb 14, anion gap 11, BUN 43, creatinine 2.3, glucose down to 569. Plasma osmolality 342. Lactic was 2.3. LFTs unremarkable. Ammonia less than 9. UA not concerning for UTI. Urine toxicology was negative on this admission. He is currently being a evaluated in the emergency department. He is obtunded, does withdraw to painful stimuli, will not hold sustained awakening or conversation. Blood pressure 96/49 mmHg, heart rate is tachycardic, sinus tachycardia. He is on 4 L/min nasal cannula with an SpO2 reading 92%. Appears nondistressed, breathing is nonlabored. Chest x-ray showing multifocal airspace disease concerning for pneumonia versus pulmonary edema. Cardiac silhouette stable, no pleural effusions, or pneumothoraces. Empirically started on combination of azithromycin and Zosyn in the ED. Brain CT did not show any acute intracranial process. Patient is going to be admitted to the intensive care unit once bed available. On 12/27/2024, the patient is being seen for a follow-up. The patient was seen in the intensive care unit. The patient was being treated for a hyperosmolar nonketotic state. The patient is improved considerably. The patient is currently on 4 L of oxygen by nasal cannula. IV fluids in the form of half-nor mal saline at 75 cc an hour. The patient has been taken off the insulin drip and the patient is currently on Lantus 20 units in addition to NovoLog 8 units with meals and sliding scale coverage. Doing well. No specific complaints. Most recent blood work shows a serum bicarb of 17, gap of 11, BUN 25 mg at 1.24 and the patient is recovering from his acute kidney injury. Sodium level is at 143 and potassium level is at 4.8. The white cell count of 22 with a heme of 10.3 and a platelet count of 308. Blood cultures presumptively staph and the patient is currently on IV vancomycin. He does have pulmonary fibrosis with chronic interstitial changes bilaterally. He is on 3 days of oxygen by nasal cannula with a pulse ox of 98%. On 12/28/2024, the patient is on Lantus insulin 20 units nightly and NovoLog 8 units with meals and insulin scale coverage. The patient is also on IV vancomycin regarding a staphylococcal septicemia. The patient was transferred out of the intensive care unit the patient is currently in the medical floor. The white cell count of 25 with a hemoglobin 9.9 and platelet count of 289. As noted, the white cell count remains elevated. Sodium levels at 137, serum bicarbonate 18 with a gap of 12. Blood sugars at 228. The magnesium level needs to be replaced at 0.9. proBNP level was 317. Procalcitonin level was at 4.3. In terms of renal function, the patient creatinine is dropped from 2.3 down to 1.1 and the patient is improved. The patient is awake and alert and communicating on 3 Suboxone by nasal cannula with pulse ox of 95%. No other significant events overnight. Objective - Vital Signs Vital signs: Vital Signs Temp 97.9 F 12/28/24 07:10 Pulse 122 H 12/28/24 08:00 Resp 19 12/28/24 07:10 BP 144/76 12/28/24 07:10 Pulse Ox 97 12/28/24 07:10 FiO2 Intake & Output 12/27/24 12/28/24 12/28/24 18:59 06:59 18:59 Intake Total 1175 2340 130 Output Total 695 Balance 480 2340 130 Weight 79.8 kg 74.5 kg Intake: IV 10 Invasive Line 3 10 Intake, IV Titration 1175 Amount Sodium Chloride 0.45% 1, 675 000 ml @ 75 mls/hr IV . [id number] ANA MARÍA Rx#:[id number] Vancomycin 1,500 mg In 500 Sodium Chloride 0.9% 500 ml 500 ml @ 167 mls/hr IVPB Q16H ANA MARÍA Rx#: [id number] Oral 2340 120 Output: Urine 695 Other: Voiding Method Indwelling Catheter Bedside Commode Urinal # Voids 1 6 # Bowel Movements 2 4 - Exam GENERAL EXAM: Obtunded, 69-year-old -Beninese male, no obvious distress. The patient is currently on 3 L of O2 nasal cannula HEAD: Normocephalic and atraumatic EYES: Normal reaction of pupils, equal size. No nystagmus, nonicteric sclera NOSE: Clear with pink turbinates. THROAT: No erythema or exudates. Dry mucous membranes. NECK: No masses, no JVD. CHEST: No chest wall deformity. LUNGS: Equal air entry with scattered rhonchi. No conversational dyspnea or accessory muscle use.. CVS: S1 and S2 normal with no audible murmur, regular rhythm. No extra heart robert nds ABDOMEN: No hepatosplenomegaly, active bowel sounds, no guarding or rigidity. SPINE: No scoliosis or deformity SKIN: No rashes CENTRAL NERVOUS SYSTEM: No focal deficits, tone is normal in all 4 extremities. EXTREMITIES: There is no peripheral edema, clubbing, or cyanosis. Peripheral pulses are intact. - Labs CBC & Chem 7: 12/28/24 02:48 12/28/24 02:48 Labs: Abnormal Lab Results - Last 24 Hours (Table) 12/27/24 12/27/24 12/28/24 Range/Units 16:43 20:48 02:48 WBC 25.33 H (4.50-10.00) X 10*3/uL RBC 3.57 L (4.40-5.60) X 10*6/uL Hgb 9.9 L (13.0-17.0) g/dL Hct 32.1 L (39.6-50.0) % MCHC 30.8 L (32.0-37.0) g/dL RDW 16.5 H (11.5-14.5) % MPV 12.7 H (9.5-12.2) FL Immature Gran # 1.18 H (0.00-0.04) X 10*3/uL Neutrophils # 19.83 H (1.80-7.70) X 10*3/uL Monocytes # 1.69 H (0.20-1.00) X 10*3/uL Carbon Dioxide (21.6-31.8) mmol/L Anion Gap (4.00-12.00) mmol/L Glucose (70-110) mg/dL POC Glucose (mg/dL) 244 H 193 H (70-110) mg/dL Osmolality (275-295) mOsm/kg Magnesium (1.5-2.4) mg/dL Alkaline Phosphatase (41-126) U/L Albumin (3.8-4.9) g/dL Globulin (1.6-3.3) g/dL Albumin/Globulin Ratio (1.60-3.17) Ratio 12/28/24 12/28/24 12/28/24 Range/Units 02:48 06:37 11:20 WBC (4.50-10.00) X 10*3/uL RBC (4.40-5.60) X 10*6/uL Hgb (13.0-17.0) g/dL Hct (39.6-50.0) % MCHC (32.0-37.0) g/dL RDW (11.5-14.5) % MPV (9.5-12.2) FL Immature Gran # (0.00-0.04) X 10*3/uL Neutrophils # (1.80-7.70) X 10*3/uL Monocytes # (0.20-1.00) X 10*3/uL Carbon Dioxide 18.6 L (21.6-31.8) mmol/L Anion Gap 12.40 H (4.00-12.00) mmol/L Glucose 209 H (70-110) mg/dL POC Glucose (mg/dL) 218 H 228 H (70-110) mg/dL Osmolality 299 H (275-295) mOsm/kg Magnesium 0.9 A* (1.5-2.4) mg/dL Alkaline Phosphatase 171 H (41-126) U/L Albumin 2.4 L (3.8-4.9) g/dL Globulin 4.1 H (1.6-3.3) g/dL Albumin/Globulin Ratio 0.59 L (1.60-3.17) Ratio Microbiology - Last 24 Hours (Table) 12/25/24 21:00 Blood Culture Gram Stain - Final Blood Blood Culture - Final Methicillin resist S. aureus Molecular ID Assessment and Plan Assessment: Acute hyperglycemia with hyperosmolar nonketotic state, improved and the patient is currently off insulin drip transition to Lantus insulin 20 units along with N ovoLog 8 units with meals and the patient has better blood sugar control for now. No significant metabolic acidosis. Serum bicarb is up to 18. Gap is at 12. Acute metabolic encephalopathy, secondary to above, improved Severe dehydration, secondary to above, improved Non-anion gap metabolic acidosis, improved Severe hyperkalemia, improved Pseudohyponatremia, in the setting of severe hyperglycemia, improved Acute kidney injury on top of chronic kidney disease, secondary to hypovolemia and intravascular volume depletion, improved MRSA sepsis, currently on vancomycin. Acute leukocytosis secondary to above Chronic pulmonary fibrosis with hypoxic respiratory failure, currently on 3 L of oxygen by nasal cannula History of GI bleed, previously transferred to tertiary care center for GI services back on 11/24/2024, History of C. difficile colitis History of substance abuse/cocaine, urine drug toxicology screen negative History of carotid artery stenosis History of underlying COPD History of chronic mild interstitial lung disease Chronic thrombocytopenia secondary to alcoholism and alcohol use Plan: Patient currently on Lantus insulin 20 units in addition to NovoLog 8 units with meals and a sliding scale coverage Monitor blood sugars Monitor electrolytes Blood cultures were noted Continue IV vancomycin Monitor the white cell count Titrate oxygen flow to maintain saturation above 90%, currently on 3 L. The patient is showing chronic active changes bilaterally consistent with pulmonary fibrosis Viral Cepheid 4 Plex negative for influenza A/B, RSV, COVID Procalcitonin level was elevated at 4.3, will monitor Condition stable and the patient will be transferred out of the intensive care unit today. Will continue to follow.
[2024-12-28 16:50] LABS: Glucose,Whole Blood 199 mg/dL (70-110)
--- NOTE | 2024-12-28 18:35 | P.PN ---
Subjective Progress Note Date: 12/28/24 Hospital Course: Is a 69-year-old male with past medical history of DM, HHS admissions, recurrent UTIs, history of substance use, history of carotid artery stenosis, COPD, interstitial lung disease, chronic thrombocytopenia secondary to alcoholism, C. difficile colitis November 2024, esophageal varices. Presented to the ER on 12/25, patient poor historian. Patient history obtained from . She reported that patient has not been eating a full meal since the and has not been taking his medications properly. Since then he has been having worsening shortness of breath, generalized weakness and confusion. He was also noted to be very dry and looks like he had a lot of weight loss. She noted that he had a nonproductive cough, and diarrhea. There was no noted fever, chest pain, changes in urination, extremity swelling, facial asymmetry, changes in speech, changes in vision, rec ent illness, or recent travel. On admission, brain CT showed no acute intracranial process. Chest x-ray showed multifocal airspace opacities to correlate for pneumonia and to exclude pulmonary edema. Labs on admission showed WBC 25, hemoglobin 10.6, MCV 99.9, platelet count 266,000, PT 11.6, INR 1.1, PTT 28.3, sodium 128, potassium 7.7, chloride 103, bicarb 14, BUN 43, creatinine 2.3, glucose 951, lactic acid 2.5, calcium 9.2, magnesium 1.4, total bilirubin 0.7, AST 17, ALT 17, alk phos 136, ammonia less than 9, albumin 2.7. Acetone negative. Cepheid 4 negative. VBG pH 7.21, pCO2 42, bicarb 17. Patient was admitted for acute metabolic encephalopathy, HHS, hyperkalemic jim gency, started on insulin drip, nephrology consulted, MISHA inhibitor on hold. He was started on azithromycin and ceftriaxone for possible community-acquired pneumonia. Insulin drip was discontinued on 12/27, patient was switched to basal bolus with Levemir 20 nightly, mealtime Humalog 8 units and sliding scale insulin, continued on IV fluids, kidney function is improving, nephrology following. TTE showed no acute abnormalities, normal EF. MRSA swab came back positive, patient was switched to vancomycin SOT 12/27, pending urine and blood cultures. Social work consulted, PT OT consulted, patient has history of medications noncompliance. Overall mental status significantly improved, patien t is able to ambulate, uses bathroom, will be transferred from ICU once a bed was available Pertinent Imaging: TTE showed normal systolic function, no pericardial effusion Subjective: Patient complains of neck pain. BCx growing MRSA, ID consulted. Pertinent positives and negatives as discussed above, a complete review of systems was performed and all other systems are negative. Vitals Signs Reviewed. Gen: In NAD, non-toxic HEENT: normocephalic, atraumatic, hearing acuity is intant, mucous membranes moist CVS: perfusing all extremities well, no pitting edema, Respiratory: symmetric chest expansion, no accessory muscle use, GI: soft, NTTP, ND, : no suprapubic tenderness, no CVA tenderness MSK/Derm: no rashes, cyanosis Neuro: CN II-XII intact, no motor weakness, Psych: cooperative, euthymic mood, judgment and insight is intact Assessment and Plan:#. Acute metabolic encephalopathy, improving HHS, resolved Pseudohyponatremia secondary to above Nonaniongap metabolic acidosis secondary to above, improving Lactic acidosis secondary to above -Insulin drip discontinued, patient started on basal bolus but Levemir 20 at bedtime, Humalog 8 units AC 3 times daily, sliding scale insulin -BMP daily -Cardiac telemetry -Fall precautions -Stable, will be transferred from ICU, pending bed availability -Patient is noncompliant with his insulins, social work consulted, PT OT Hyperkalemic emergency secondary to HHS, resolved LATOYA secondary to volume depletion, ATN, nonoliguric -Nephrology following, holding MISHA, continue IV fluids, changed to half-normal saline -Added sodium bicarb oral -Monitor BMP Hypomagnesemia, resolved -Follow-up magnesium level Acute hypoxic respiratory failure secondary to community-acquired pneumonia, MRSA Bacteremia -Afebrile since 12/26 11 a.m., WBC trending down 25.0-22.4 -Antibiotics SOT 12/25, patient was initially on Rocephin and azithromycin, Legionella negative, MRSA swab positive, started on vancomycin on 12/27 -Monitor CBC -blood cultures, sputum cultures-pending, and urine legionella -negative urine Legionella -ID consulted -repeat Cx ordered, if persistently + will order C-spine MRI Chronic Conditions: GERD Hypertension, currently hypotensive Depression History of C. difficile -Hold home labetalol 100 3 times daily, holding home lisinopril in the settings of LATOYA, holding home potassium chloride, resumed home folic acid 1 mg DVT ppx: Lovenox 40 mg SQ daily Dispo: The patient is admitted with an anticipated greater than than 2 midnight stay for evaluation of DKA Anticipated discharge place: tbd, PT OT consulted Objective - Vital Signs Vital signs: Vital Signs Temp 97.7 F 12/28/24 14:00 Pulse 114 H 12/28/24 14:00 Resp 19 12/28/24 14:00 BP 151/78 12/28/24 14:00 Pulse Ox 95 12/28/24 14:00 FiO2 Intake & Output 12/27/24 12/28/24 12/28/24 18:59 06:59 18:59 Intake Total 1175 2340 330 Output Total 695 Balance 480 2340 330 Weight 79.8 kg 74.5 kg Intake: IV 10 Invasive Line 3 10 Intake, IV Titration 1175 Amount Sodium Chloride 0.45% 1, 675 000 ml @ 75 mls/hr IV . [id number] ANA MARÍA Rx#:[id number] Vancomycin 1,500 mg In 500 Sodium Chloride 0.9% 500 ml 500 ml @ 167 mls/hr IVPB Q16H ANA MARÍA Rx#: [id number] Oral 2340 320 Output: Urine 695 Other: Voiding Method Indwelling Catheter Bedside Commode Urinal # Voids 1 6 3 # Bowel Movements 2 4 2 - Labs CBC & Chem 7: 12/28/24 02:48 12/28/24 02:48 Labs: Abnormal Lab Results - Last 24 Hours (Table) 12/27/24 12/28/24 12/28/24 Range/Units 20:48 02:48 02:48 WBC 25.33 H (4.50-10.00) X 10*3/uL RBC 3.57 L (4.40-5.60) X 10*6/uL Hgb 9.9 L (13.0-17.0) g/dL Hct 32.1 L (39.6-50.0) % MCHC 30.8 L (32.0-37.0) g/dL RDW 16.5 H (11.5-14.5) % MPV 12.7 H (9.5-12.2) FL Immature Gran # 1.18 H (0.00-0.04) X 10*3/uL Neutrophils # 19.83 H (1.80-7.70) X 10*3/uL Monocytes # 1.69 H (0.20-1.00) X 10*3/uL Carbon Dioxide 18.6 L (21.6-31.8) mmol/L Anion Gap 12.40 H (4.00-12.00) mmol/L Glucose 209 H (70-110) mg/dL POC Glucose (mg/dL) 193 H (70-110) mg/dL Osmolality 299 H (275-295) mOsm/kg Magnesium 0.9 A* (1.5-2.4) mg/dL Alkaline Phosphatase 171 H (41-126) U/L Albumin 2.4 L (3.8-4.9) g/dL Globulin 4.1 H (1.6-3.3) g/dL Albumin/Globulin Ratio 0.59 L (1.60-3.17) Ratio 12/28/24 12/28/24 12/28/24 Range/Units 06:37 11:20 16:49 WBC (4.50-10.00) X 10*3/uL RBC (4.40-5.60) X 10*6/uL Hgb (13.0-17.0) g/dL Hct (39.6-50.0) % MCHC (32.0-37.0) g/dL RDW (11.5-14.5) % MPV (9.5-12.2) FL Immature Gran # (0.00-0.04) X 10*3/uL Neutrophils # (1.80-7.70) X 10*3/uL Monocytes # (0.20-1.00) X 10*3/uL Carbon Dioxide (21.6-31.8) mmol/L Anion Gap (4.00-12.00) mmol/L Glucose (70-110) mg/dL POC Glucose (mg/dL) 218 H 228 H 199 H (70-110) mg/dL Osmolality (275-295) mOsm/kg Magnesium (1.5-2.4) mg/dL Alkaline Phosphatase (41-126) U/L Albumin (3.8-4.9) g/dL Globulin (1.6-3.3) g/dL Albumin/Globulin Ratio (1.60-3.17) Ratio Microbiology - Last 24 Hours (Table) 12/25/24 21:00 Blood Culture Gram Stain - Final Blood Blood Culture - Final Methicillin resist S. aureus Molecular ID
[2024-12-28] MEDS: SODIUM CHLORIDE 0.9% 1,000 ML IV SCH (19:39)
[2024-12-28] MEDS ORDERED: MAGNESIUM SULFATE-D5W PMX 1 GM in DEXTROSE/WATER 1 100ML.BAG IVPB SCH (20:15)
[2024-12-28 21:34] LABS: Glucose,Whole Blood 122 mg/dL (70-110)
--- NOTE | 2024-12-29 01:12 | CT ---
EXAM: CT Chest With Intravenous Contrast CLINICAL HISTORY: ITS.REASON CT Reason: elevated d-dimer TECHNIQUE: Axial computed tomographic images of the chest with intravenous contrast. CTDI is 60.8 mGy and DLP is 431.9 mGy-cm. This CT exam was performed using one or more of the following dose reduction techniques: automated exposure control, adjustment of the mA and/or kV according to patient size, and/or use of iterative reconstruction technique. COMPARISON: Chest x-ray of 08/25/2025. FINDINGS: Pulmonary arteries: Central pulmonary arteries are unremarkable. Markedly limited evaluation of the peripheral branches the pulmonary arteries which are nevertheless noted to be grossly unremarkable. Aorta: Atherosclerotic disease of the thoracic aorta. No thoracic aortic aneurysm. Lungs: Patchy areas of airspace disease noted throughout both lungs raising concern for pneumonia, possibly atypical multifocal pneumonia. Clinical correlation and short-term imaging in 4-6 weeks is advised. COPD. Airway is normal. No mass. Pleural space: Unremarkable. No significant effusion. No pneumothorax. Heart: Unremarkable. No cardiomegaly. No significant pericardial effusion. No evidence of RV dysfunction. Mediastinum: There is subcarinal lymphadenopathy. Bones/joints: Moderate to severe degenerative disease of the thoracic spine and kyphosis. No acute fracture. No dislocation. Soft tissues: Unremarkable. Lymph nodes: There is bilateral hilar lymphadenopathy. Other findings: There is hypoaeration. IMPRESSION: 1. Scattered airspace disease bilaterally possibly in the base of atypical multifocal pneumonia. Other etiologies cannot be excluded. 2. Hilar mediastinal lymphadenopathy. 3. PET imaging should be considered as deemed clinically necessary. 4. No central pulmonary emboli. 5. Markedly limited evaluation of the peripheral branches the pulmonary arteries which are grossly unremarkable but significantly limited in assessment.
[2024-12-29 06:34] LABS: Glucose,Whole Blood 155 mg/dL (70-110)
[2024-12-29 10:44] LABS: Glucose,Whole Blood 142 mg/dL (70-110)
[2024-12-29 10:55] LABS: Anisocytosis Slight; Basophils # (A) 0.3 k/uL (0-0.2); Basophils % (A) 1 %; Eosinophils # (A) 0.2 k/uL (0-0.7); Eosinophils % (A) 1 %; HCT 33.1 % (39.0-53.0); HGB 9.9 gm/dL (13.0-17.5); Hypochromasia Marked; Lymphocytes # (A) 1.6 k/uL (1.0-4.8); Lymphocytes % (A) 7 %; MCH 28.2 pg (25.0-35.0); MCHC 29.9 g/dL (31.0-37.0); MCV 94.1 fL (80.0-100.0); Mean Platelet Volume 9.7; Monocytes % (A) 4 %; Neutrophils # (A) 21.5 k/uL (1.3-7.7); Neutrophils % (A) 86 %; Platelet Count 334 k/uL (150-450); Poikilocytosis Slight; RBC 3.52 m/uL (4.30-5.90); RDW 16.6 % (11.5-15.5); WBC 25.1 k/uL (3.8-10.6)
[2024-12-29 11:25] LABS: African American GFR (CKD) >90 (>60 ml/min/1.73 sqM); Anion Gap 11 mmol/L; Blood Urea Nitrogen 10 mg/dL (9-20); Calcium 9.1 mg/dL (8.4-10.2); Carbon Dioxide 23 mmol/L (22-30); Chloride 105 mmol/L (98-107); Glucose 101 mg/dL (74-99); Magnesium 1.3 mg/dL (1.6-2.3); Non-African American GFR(CKD) 87 (>60 ml/min/1.73 sqM); Potassium 3.3 mmol/L (3.5-5.1); Sodium 139 mmol/L (137-145)
[2024-12-29 12:04] LABS: C Reactive Protein 36.8 mg/dL (<1.0)
--- NOTE | 2024-12-29 12:26 | P.PN ---
Subjective Progress Note Date: 12/29/24 Principal diagnosis: Reason for follow-up is MRSA bacteremia pneumonia Patient is a 69-year-old -Wel[place] male with a past medical history difficult for diabetes mellitus reflux hypertension pneumonia presenting to the hospital for evaluation of confusion and lethargy patient has been diagnosed with pneumonia blood cultures came back positive with MRSA prompted this con sultation. On today's evaluation that is 12/29/2024, patient did spiked a temperature of 101.2 F at 1 PM the patient is afebrile since then patient is currently breathing comfortably on room air seen to be slightly sleepy lethargic did not provide any history no vomiting or diarrhea has been reported. Patient white count is 25.[address] angiogram of the chest no PE scattered airspace disease bilaterally on the basis of pulmonary Objective - Vital Signs Vital signs: Vital Signs Temp 98.0 F 12/29/24 07:51 Pulse 83 12/29/24 08:20 Resp 16 12/29/24 08:20 BP 148/70 12/29/24 07:51 Pulse Ox 94 L 12/29/24 07:51 FiO2 Intake & Output 12/28/24 12/29/24 12/29/24 18:59 06:59 18:59 Intake Total 330 Balance 330 Weight 79 kg Intake: IV 10 Invasive Line 3 10 Oral 320 Other: Voiding Method Bedside Commode Bedside Commode Urinal Urinal # Voids 3 5 # Bowel Movements 2 - Exam GENERAL DESCRIPTION: An elderly male lying in bed in no distress RESPIRATORY SYSTEM: Unlabored breathing , decreased breath sounds at bases HEART: S1 S2 regular rate and rhythm , ABDOMEN: Soft , no tenderness EXTREMITIES: No edema feet - Labs CBC & Chem 7: 12/29/24 09:35 12/29/24 09:35 Labs: Abnormal Lab Results - Last 24 Hours (Table) 12/28/24 12/28/24 12/28/24 Range/Units 02:48 02:48 16:49 WBC 25.33 H (4.50-10.00) X 10*3/uL RBC 3.57 L (4.40-5.60) X 10*6/uL Hgb 9.9 L (13.0-17.0) g/dL Hct 32.1 L (39.6-50.0) % MCHC 30.8 L (32.0-37.0) g/dL RDW 16.5 H (11.5-14.5) % MPV 12.7 H (9.5-12.2) FL Immature Gran # 1.18 H (0.00-0.04) X 10*3/uL Neutrophils # 19.83 H (1.80-7.70) X 10*3/uL Monocytes # 1.69 H (0.20-1.00) X 10*3/uL Basophils # (0-0.2) k/uL D-Dimer (<0.60) mg/L FEU Potassium (3.5-5.1) mmol/L Glucose (74-99) mg/dL POC Glucose (mg/dL) 199 H (70-110) mg/dL Osmolality 299 H (275-295) mOsm/kg Magnesium (1.6-2.3) mg/dL C-Reactive Protein (<1.0) mg/dL 12/28/24 12/28/24 12/29/24 Range/Units 21:33 23:02 06:32 WBC (4.50-10.00) X 10*3/uL RBC (4.40-5.60) X 10*6/uL Hgb (13.0-17.0) g/dL Hct (39.6-50.0) % MCHC (32.0-37.0) g/dL RDW (11.5-14.5) % MPV (9.5-12.2) FL Immature Gran # (0.00-0.04) X 10*3/uL Neutrophils # (1.80-7.70) X 10*3/uL Monocytes # (0.20-1.00) X 10*3/uL Basophils # (0-0.2) k/uL D-Dimer 4.87 H (<0.60) mg/L FEU Potassium (3.5-5.1) mmol/L Glucose (74-99) mg/dL POC Glucose (mg/dL) 122 H 155 H (70-110) mg/dL Osmolality (275-295) mOsm/kg Magnesium (1.6-2.3) mg/dL C-Reactive Protein (<1.0) mg/dL 02/22/25 02/22/25 02/22/25 Range/Units 09:35 09:35 10:41 WBC 25.1 H (4.50-10.00) X 10*3/uL RBC 3.52 L (4.40-5.60) X 10*6/uL Hgb 9.9 L (13.0-17.0) g/dL Hct 33.1 L (39.6-50.0) % MCHC 29.9 L (32.0-37.0) g/dL RDW 16.6 H (11.5-14.5) % MPV (9.5-12.2) FL Immature Gran # (0.00-0.04) X 10*3/uL Neutrophils # 21.5 H (1.80-7.70) X 10*3/uL Monocytes # (0.20-1.00) X 10*3/uL Basophils # 0.3 H (0-0.2) k/uL D-Dimer (<0.60) mg/L FEU Potassium 3.3 L (3.5-5.1) mmol/L Glucose 101 H (74-99) mg/dL POC Glucose (mg/dL) 142 H (70-110) mg/dL Osmolality (275-295) mOsm/kg Magnesium 1.3 L (1.6-2.3) mg/dL C-Reactive Protein 36.8 H (<1.0) mg/dL Microbiology - Last 24 Hours (Table) 12/25/24 21:00 Blood Culture Gram Stain - Final Blood Blood Culture - Final Methicillin resist S. aureus Molecular ID Assessment and Plan (1) MRSA bacteremia Current Visit: Yes Status: Acute Code(s): R78.81 - BACTEREMIA; B95.62 - METHICILLIN RESIS STAPH INFCT CAUSING DISEASES [facility] SNOMED Code(s): 06213617199829427 (2) Pneumonia Current Visit: Yes Status: Acute Code(s): J18.9 - PNEUMONIA, UNSPECIFIED ORGANISM SNOMED Code(s): 687351049 (3) Sepsis Current Visit: Yes Status: Acute Code(s): A41.9 - SEPSIS, UNSPECIFIED ORGANISM SNOMED Code(s): 45400098 Plan: 1patient presented hospital with sepsis in this patient who did have fever tachycardia elevated white count meeting currently for SIRS source likely pneumonia now with evidence of MRSA bacteremia. 2patient with MRSA bacteremia source is likely pneumonia. 3blood culture has been repeated to document clearance of his bacteremia. 4patient currently being treatedvancomycin pharmacy to dose target trough of 15 and will monitor clinical course closely Dictation was produced using [employer] dictation software. please excuse any grammatical, word or spelling errors. Time with Patient: Less than 30
--- NOTE | 2024-12-29 15:06 | P.PN ---
Subjective Progress Note Date: 12/29/24 Patient is a 69-year-old male with past medical history significant for hyperte nsion, insulin-dependent diabetes mellitus, polysubstance abuse, COPD. Patient presented emergency department late last night with a chief complaint evaluated blood sugars, AMS, generalized weakness, and dehydration. Found to have multiple metabolic abnormalities consistent with HHNS. Of note, patient recently admitted to the hospital back on 11/13/2024 for similar presentation and HHNS. Did develop upper GI bleed during this hospitalization, ultimately transferred to on 11/24/2024 [facility] for GI services. On arrival to the ED, initial blood glucose 951 mg/dL, serum bicarb 14, anion gap 11, acetone and ketone negative. He was started on HHS protocol. Also, blood pressure noted to be hypotensive, he has been fluid resuscitated with a total of 3.5 L normal saline so far, normal saline is infusing at 250 cc/h. Insulin infusing per protocol. Last [id number] glucose 569. Labs consistent with non-anion gap metabolic acidosis. Potassium was 7.7 mmol/L. He has received a dose of Lokelma, 1 amp sodium bicarb, 1 gram calcium gluconate. Repeat potassium levels pending. Remaining labs including CBC remarkable for leukocytosis with a WBC count of 25, hemoglobin is stable at 10.6 g/dL, platelets 266. Coagulation profile unremarkable. CMP includes a sodium 128, potassium 7.7, chloride 103, serum bicarb 14, anion gap 11, BUN 43, creatinine 2.3, glucose down to 569. Plasma osmolality 342. Lactic was 2.3. LFTs unremarkable. Ammonia less than 9. UA not concerning for UTI. Urine toxicology was negative on this admission. He is currently being a evaluated in the emergency department. He is obtunded, does withdraw to painful stimuli, will not hold sustained awakening or conversation. Blood pressure 96/49 mmHg, heart rate is tachycardic, sinus tachycardia. He is on 4 L/min nasal cannula with an SpO2 reading 92%. Appears nondistressed, breathing is nonlabored. Chest x-ray showing multifocal airspace disease concerning for pneumonia versus pulmonary edema. Cardiac silhouette stable, no pleural effusions, or pneumothoraces. Empirically started on combination of azithromycin and Zosyn in the ED. Brain CT did not show any acute intracranial process. Patient is going to be admitted to the intensive care unit once bed available. On 12/27/2024, the patient is being seen for a follow-up. The patient was seen in the intensive care unit. The patient was being treated for a hyperosmolar nonketotic state. The patient is improved considerably. The patient is currently on 4 L of oxygen by nasal cannula. IV fluids in the form of half-nor mal saline at 75 cc an hour. The patient has been taken off the insulin drip and the patient is currently on Lantus 20 units in addition to NovoLog 8 units with meals and sliding scale coverage. Doing well. No specific complaints. Most recent blood work shows a serum bicarb of 17, gap of 11, BUN 25 mg at 1.24 and the patient is recovering from his acute kidney injury. Sodium level is at 143 and potassium level is at 4.8. The white cell count of 22 with a heme of 10.3 and a platelet count of 308. Blood cultures presumptively staph and the patient is currently on IV vancomycin. He does have pulmonary fibrosis with chronic interstitial changes bilaterally. He is on 3 days of oxygen by nasal cannula with a pulse ox of 98%. On 12/28/2024, the patient is on Lantus insulin 20 units nightly and NovoLog 8 units with meals and insulin scale coverage. The patient is also on IV vancomycin regarding a staphylococcal septicemia. The patient was transferred out of the intensive care unit the patient is currently in the medical floor. The white cell count of 25 with a hemoglobin 9.9 and platelet count of 289. As noted, the white cell count remains elevated. Sodium levels at 137, serum bicarbonate 18 with a gap of 12. Blood sugars at 228. The magnesium level needs to be replaced at 0.9. proBNP level was 317. Procalcitonin level was at 4.3. In terms of renal function, the patient creatinine is dropped from 2.3 down to 1.1 and the patient is improved. The patient is awake and alert and communicating on 3 liters by nasal cannula with pulse ox of 95%. No other significant events overnight. On 12/29/2024, the patient is being seen for a follow-up. No new complaints. Remains on oxygen at 2 L with a pulse ox of 99%. No significant respiratory distress. Blood sugars are under better control and the patient is currently on Lantus 20 units in addition to NovoLog 8 units with meals and sliding scale coverage. No significant metabolic acidosis. Serum bicarb is at 23. Gap is at 11. White cell count remains elevated at 25 as the patient has staph septicemia and the patient remains on vancomycin. ID is on the case. Meanwhile, a CT scan of the chest was also done. The patient had a CTA and it shows no evidence of any pulmonary embolism. I reviewed the images. The findings are consistent with scattered interstitial and airspace disease bilaterally and there is also some hilar lymphadenopathy. This may be consistent of a chronic sarcoidosis. Nevertheless, those findings are essentially chronic and previous chest x-rays have shown chronic bilateral pulmonary infiltrates which makes me consider of interstitial lung disease and possible sarcoidosis specially with the presence of mediastinal lymphadenopathy. No further investigation regarding this issue has been done in the past. Objective - Vital Signs Vital signs: Vital Signs Temp 98.1 F 12/29/24 13:54 Pulse 120 H 12/29/24 13:54 Resp 18 12/29/24 13:54 BP 149/74 12/29/24 13:54 Pulse Ox 93 L 12/29/24 13:54 FiO2 Intake & Output 12/28/24 12/29/24 12/29/24 18:59 06:59 18:59 Intake Total 330 Balance 330 Weight 79 kg Intake: IV 10 Invasive Line 3 10 Oral 320 Other: Voiding Method Bedside Commode Bedside Commode Urinal Urinal # Voids 3 5 # Bowel Movements 2 - Exam GENERAL EXAM: Obtunded, 69-year-old -[place] male, no obvious distress. The patient is currently on 3 L of O2 nasal cannula HEAD: Normocephalic and atraumatic EYES: Normal reaction of pupils, equal size. No nystagmus, nonicteric sclera NOSE: Clear with pink turbinates. THROAT: No erythema or exudates. Dry mucous membranes. NECK: No masses, no JVD. CHEST: No chest wall deformity. LUNGS: Equal air entry with scattered rhonchi. No conversational dyspnea or accessory muscle use.. CVS: S1 and S2 normal with no audible murmur, regular rhythm. No extra heart sounds ABDOMEN: No hepatosplenomegaly, active bowel sounds, no guarding or rigidity. SPINE: No scoliosis or deformity SKIN: No rashes CENTRAL NERVOUS SYSTEM: No focal deficits, tone is normal in all 4 extremities. EXTREMITIES: There is no peripheral edema, clubbing, or cyanosis. Peripheral pulses are intact. - Labs CBC & Chem 7: 12/29/24 09:35 12/29/24 09:35 Labs: Abnormal Lab Results - Last 24 Hours (Table) 12/28/24 12/28/24 12/28/24 Range/Units 16:49 21:33 23:02 WBC (3.8-10.6) k/uL RBC (4.30-5.90) m/uL Hgb (13.0-17.5) gm/dL Hct (39.0-53.0) % MCHC (31.0-37.0) g/dL RDW (11.5-15.5) % Neutrophils # (1.3-7.7) k/uL Basophils # (0-0.2) k/uL D-Dimer 4.87 H (<0.60) mg/L FEU Potassium (3.5-5.1) mmol/L Glucose (74-99) mg/dL POC Glucose (mg/dL) 199 H 122 H (70-110) mg/dL Magnesium (1.6-2.3) mg/dL C-Reactive Protein (<1.0) mg/dL 12/29/24 12/29/24 12/29/24 Range/Units 06:32 09:35 09:35 WBC 25.1 H (3.8-10.6) k/uL RBC 3.52 L (4.30-5.90) m/uL Hgb 9.9 L (13.0-17.5) gm/dL Hct 33.1 L (39.0-53.0) % MCHC 29.9 L (31.0-37.0) g/dL RDW 16.6 H (11.5-15.5) % Neutrophils # 21.5 H (1.3-7.7) k/uL Basophils # 0.3 H (0-0.2) k/uL D-Dimer (<0.60) mg/L FEU Potassium 3.3 L (3.5-5.1) mmol/L Glucose 101 H (74-99) mg/dL POC Glucose (mg/dL) 155 H (70-110) mg/dL Magnesium 1.3 L (1.6-2.3) mg/dL C-Reactive Protein 36.8 H (<1.0) mg/dL 12/29/24 Range/Units 10:41 WBC (3.8-10.6) k/uL RBC (4.30-5.90) m/uL Hgb (13.0-17.5) gm/dL Hct (39.0-53.0) % MCHC (31.0-37.0) g/dL RDW (11.5-15.5) % Neutrophils # (1.3-7.7) k/uL Basophils # (0-0.2) k/uL D-Dimer (<0.60) mg/L FEU Potassium (3.5-5.1) mmol/L Glucose (74-99) mg/dL POC Glucose (mg/dL) 142 H (70-110) mg/dL Magnesium (1.6-2.3) mg/dL C-Reactive Protein (<1.0) mg/dL Microbiology - Last 24 Hours (Table) 12/25/24 21:00 Blood Culture Gram Stain - Final Blood Blood Culture - Final Methicillin resist S. aureus Molecular ID Assessment and Plan Assessment: Diabetes mellitus type 2. The patient presented with acute hyperglycemia with hyperosmolar nonketotic state, improved and the patient is currently off insulin drip transition to Lantus insulin 20 units along with NovoLog 8 units with meals and the patient has better blood sugar control for now. No significant metabolic acidosis. Acute metabolic encephalopathy, secondary to above, improved Severe dehydration, secondary to above, improved Non-anion gap metabolic acidosis, improved Severe hyperkalemia, improved Pseudohyponatremia, in the setting of severe hyperglycemia, improved Acute kidney injury on top of chronic kidney disease, secondary to hypovolemia and intravascular volume depletion, improved MRSA sepsis, currently on vancomycin. Acute leukocytosis secondary to above Chronic pulmonary fibrosis with hypoxic respiratory failure, currently on 3 L of oxygen by nasal cannula. Reviewed the CT of the chest. Patient has chronic interstitial and airspace disease bilaterally along with some mediastinal lymphadenopathy. Suspect chronic sarcoidosis. Close findings are essentially chronic and can be further worked up on outpatient basis. No evidence of any pulmonary embolism. Patient remains on 3 L of O2 nasal cannula. History of GI bleed, previously transferred to tertiary care center for GI s ervices back on 11/24/2024, History of C. difficile colitis History of substance abuse/cocaine, urine drug toxicology screen negative History of carotid artery stenosis History of underlying COPD History of chronic mild interstitial lung disease Chronic thrombocytopenia secondary to alcoholism and alcohol use Plan: Patient remains on liters of oxygen by nasal cannula CT of the chest was noted. No evidence of pulm embolism. Pulmonary findings are essentially chronic. Could be representation of chronic sarcoidosis. Malignancy is felt to be less likely. Patient currently on Lantus insulin 20 units in addition to NovoLog 8 units with meals and a sliding scale coverage Monitor blood sugars Monitor electrolytes Blood cultures were noted Continue IV vancomycin Monitor the white cell count Titrate oxygen flow to maintain saturation above 90%, currently on 3 L. The patient is showing chronic active changes bilaterally consistent with pulmonary fibrosis Viral Cepheid 4 Plex negative for influenza A/B, RSV, COVID Procalcitonin level was elevated at 4.3, Condition stable Rest of the management as per the medical team. Time with Patient: Greater than 30
[2024-12-29 15:31] LABS: African American GFR (CKD) >90 (>60 ml/min/1.73 sqM); Non-African American GFR(CKD) 86 (>60 ml/min/1.73 sqM)
--- NOTE | 2024-12-29 15:32 | P.PN ---
Subjective Progress Note Date: 12/29/24 Hospital Course: Is a 69-year-old male with past medical history of DM, HHS admissions, recurrent UTIs, history of substance use, history of carotid artery stenosis, COPD, interstitial lung disease, chronic thrombocytopenia secondary to alcoholism, C. difficile colitis November 2024, esophageal varices. Presented to the ER on 12/25, patient poor historian. Patient history obtained from . She reported that patient has not been eating a full meal since the and has not been taking his medications properly. Since then he has been having worsening shortness of breath, generalized weakness and confusion. He was also noted to be very dry and looks like he had a lot of weight loss. She noted that he had a nonproductive cough, and diarrhea. There was no noted fever, chest pain, changes in urination, extremity swelling, facial asymmetry, changes in speech, changes in vision, rec ent illness, or recent travel. On admission, brain CT showed no acute intracranial process. Chest x-ray showed multifocal airspace opacities to correlate for pneumonia and to exclude pulmonary edema. Labs on admission showed WBC 25, hemoglobin 10.6, MCV 99.9, platelet count 266,000, PT 11.6, INR 1.1, PTT 28.3, sodium 128, potassium 7.7, chloride 103, bicarb 14, BUN 43, creatinine 2.3, glucose 951, lactic acid 2.5, calcium 9.2, magnesium 1.4, total bilirubin 0.7, AST 17, ALT 17, alk phos 136, ammonia less than 9, albumin 2.7. Acetone negative. Cepheid 4 negative. VBG pH 7.21, pCO2 42, bicarb 17. Patient was admitted for acute metabolic encephalopathy, HHS, hyperkalemic jim gency, started on insulin drip, nephrology consulted, MISHA inhibitor on hold. He was started on azithromycin and ceftriaxone for possible community-acquired pneumonia. Insulin drip was discontinued on 12/27, patient was switched to basal bolus with Levemir 20 nightly, mealtime Humalog 8 units and sliding scale insulin, continued on IV fluids, kidney function is improving, nephrology following. TTE showed no acute abnormalities, normal EF. MRSA swab came back positive, patient was switched to vancomycin SOT 12/27, pending urine and blood cultures. Social work consulted, PT OT consulted, patient has history of medications noncompliance. Overall mental status significantly improved, patien t is able to ambulate, uses bathroom, will be transferred from ICU once a bed was available Pertinent Imaging: TTE showed normal systolic function, no pericardial effusion Subjective: Patient complains of worsening neck pain. BCx growing MRSA, ID consulted. Pertinent positives and negatives as discussed above, a complete review of systems was performed and all other systems are negative. Vitals Signs Reviewed. Gen: In NAD, non-toxic HEENT: normocephalic, atraumatic, hearing acuity is intant, mucous membranes moist CVS: perfusing all extremities well, no pitting edema, Respiratory: symmetric chest expansion, no accessory muscle use, GI: soft, NTTP, ND, : no suprapubic tenderness, no CVA tenderness MSK/Derm: no rashes, cyanosis Neuro: CN II-XII intact, + b/l handgrip weakness Psych: cooperative, euthymic mood, judgment and insight is intact Assessment and Plan:#. Acute metabolic encephalopathy, improving HHS, resolved Pseudohyponatremia secondary to above Nonaniongap metabolic acidosis secondary to above, improving Lactic acidosis secondary to above -Insulin drip discontinued, patient started on basal bolus but Levemir 20 at bedtime, Humalog 8 units AC 3 times daily, sliding scale insulin -BMP daily -Cardiac telemetry -Fall precautions -Stable, will be transferred from ICU, pending bed availability -Patient is noncompliant with his insulins, social work consulted, PT OT Hyperkalemic emergency secondary to HHS, resolved LATOYA secondary to volume depletion, ATN, nonoliguric -Nephrology following, holding MISHA, continue IV fluids, changed to half-normal saline -Added sodium bicarb oral -Monitor BMP Hypomagnesemia, resolved -Follow-up magnesium level Acute hypoxic respiratory failure secondary to community-acquired pneumonia, MRSA Bacteremia -Afebrile since 12/26 11 a.m., WBC trending down 25.0-22.4 -Antibiotics SOT 12/25, patient was initially on Rocephin and azithromycin, Legionella negative, MRSA swab positive, started on vancomycin on 12/27 -Monitor CBC -blood cultures, sputum cultures-pending, and urine legionella -negative urine Legionella -ID consulted -repeat Cx ordered, -ordered MRI C-spine to r/o abscess due to worsening neck pain and no imp rovement in WBC Chronic Conditions: GERD Hypertension, currently hypotensive Depression History of C. difficile -Hold home labetalol 100 3 times daily, holding home lisinopril in the settings of LATOYA, holding home potassium chloride, resumed home folic acid 1 mg DVT ppx: Lovenox 40 mg SQ daily Dispo: The patient is admitted with an anticipated greater than than 2 midnight stay for evaluation of DKA Anticipated discharge place: tbd, PT OT consulted Objective - Vital Signs Vital signs: Vital Signs Temp 98.1 F 12/29/24 13:54 Pulse 120 H 12/29/24 13:54 Resp 18 12/29/24 13:54 BP 149/74 12/29/24 13:54 Pulse Ox 93 L 12/29/24 13:54 FiO2 Intake & Output 12/28/24 12/29/24 12/29/24 18:59 06:59 18:59 Intake Total 330 Balance 330 Weight 79 kg Intake: IV 10 Invasive Line 3 10 Oral 320 Other: Voiding Method Bedside Commode Bedside Commode Urinal Urinal # Voids 3 5 # Bowel Movements 2 - Labs CBC & Chem 7: 12/29/24 09:35 12/29/24 14:58 Labs: Abnormal Lab Results - Last 24 Hours (Table) 12/28/24 12/28/24 12/28/24 Range/Units 16:49 21:33 23:02 WBC (3.8-10.6) k/uL RBC (4.30-5.90) m/uL Hgb (13.0-17.5) gm/dL Hct (39.0-53.0) % MCHC (31.0-37.0) g/dL RDW (11.5-15.5) % Neutrophils # (1.3-7.7) k/uL Basophils # (0-0.2) k/uL D-Dimer 4.87 H (<0.60) mg/L FEU Potassium (3.5-5.1) mmol/L Glucose (74-99) mg/dL POC Glucose (mg/dL) 199 H 122 H (70-110) mg/dL Magnesium (1.6-2.3) mg/dL C-Reactive Protein (<1.0) mg/dL 12/29/24 12/29/24 12/29/24 Range/Units 06:32 09:35 09:35 WBC 25.1 H (3.8-10.6) k/uL RBC 3.52 L (4.30-5.90) m/uL Hgb 9.9 L (13.0-17.5) gm/dL Hct 33.1 L (39.0-53.0) % MCHC 29.9 L (31.0-37.0) g/dL RDW 16.6 H (11.5-15.5) % Neutrophils # 21.5 H (1.3-7.7) k/uL Basophils # 0.3 H (0-0.2) k/uL D-Dimer (<0.60) mg/L FEU Potassium 3.3 L (3.5-5.1) mmol/L Glucose 101 H (74-99) mg/dL POC Glucose (mg/dL) 155 H (70-110) mg/dL Magnesium 1.3 L (1.6-2.3) mg/dL C-Reactive Protein 36.8 H (<1.0) mg/dL 12/29/24 Range/Units 10:41 WBC (3.8-10.6) k/uL RBC (4.30-5.90) m/uL Hgb (13.0-17.5) gm/dL Hct (39.0-53.0) % MCHC (31.0-37.0) g/dL RDW (11.5-15.5) % Neutrophils # (1.3-7.7) k/uL Basophils # (0-0.2) k/uL D-Dimer (<0.60) mg/L FEU Potassium (3.5-5.1) mmol/L Glucose (74-99) mg/dL POC Glucose (mg/dL) 142 H (70-110) mg/dL Magnesium (1.6-2.3) mg/dL C-Reactive Protein (<1.0) mg/dL Microbiology - Last 24 Hours (Table) 12/25/24 21:00 Blood Culture Gram Stain - Final Blood Blood Culture - Final Methicillin resist S. aureus Molecular ID
[2024-12-29] MEDS: VANCOMYCIN TROUGH DUE 1 EACH MISC MISCELLANE ONE (16:30)
--- NOTE | 2024-12-29 16:44 | MR ---
EXAMINATION TYPE: MR cervical spine wo/w con DATE OF EXAM: 12/29/2024 4:36 PM COMPARISON: 12/29/2024. CLINICAL INDICATION: Male, 69 years old with history of epidural abscess, EPIDERAL ABCESS, DECREASE R OM WITH PAIN TECHNIQUE: Multi planar, multi sequence imaging was performed utilizing: T1-weighted, T2-weighted, an d turbo inversion recovery imaging of the cervical spine. IV Contrast: 7 mL Gadobutrol (None, if empty) FINDINGS: Alignment: The cervical vertebral bodies have preserved heights. Alignment is within normal limits gi ted patient positioning. Bones: Osteophytes and disc space narrowing most pronounced at the C5-C7 vertebral levels. No abnorma l postcontrast enhancement. Cord: The spinal cord is unremarkable with regards to their signal intensity and morphology. No evide nce for epidural organizing fluid collection. Discs: Intervertebral disc signal is maintained. C2-C3: No significant disc pathology. The spinal canal is patent. No neural foraminal stenosis. C3-C4: A central disc osteophyte complex is present with mild spinal canal stenosis. Bilateral facet and uncovertebral joint arthropathy are present with mild bilateral neural foraminal stenosis. C4-C5: No significant disc pathology. The spinal canal is patent. No neural foraminal stenosis. C5-C6: No significant disc pathology. The spinal canal is patent. Bilateral facet and uncovertebral joint arthropathy are present with moderate bilateral neural foraminal stenosis. C6-C7: No significant disc pathology. The spinal canal is patent. Bilateral facet and uncovertebral joint arthropathy are present with mild bilateral neural foraminal stenosis. C7-T1: No significant disc pathology. The spinal canal is patent. No neural foraminal stenosis. Other: None. IMPRESSION: 1. No evidence for epidural abscess. No evidence for abnormal postcontrast enhancement. No evidence f or disc herniation or significant spinal canal stenosis. 2. Moderate disc degeneration with associated osteoarthritic changes. [facility], , 12/29/2024 4:42 PM
[2024-12-29 16:54] LABS: Glucose,Whole Blood 242 mg/dL (70-110)
[2024-12-29] MEDS: MORPHINE SULFATE 2 MG/ML SYRINGE IVP PRN (16:58)
[2024-12-29 21:56] LABS: Glucose,Whole Blood 172 mg/dL (70-110)
[2024-12-30] MEDS: VANCOMYCIN 1,500 MG in SODIUM CHLORIDE 0.9% 500 ML 500 ML IVPB SCH (04:53)
[2024-12-30 06:47] LABS: Glucose,Whole Blood 237 mg/dL (70-110)
[2024-12-30 09:21] LABS: HCT 33.7 % (39.6-50.0); HGB 10.4 g/dL (13.0-17.0); MCH 28.3 pg (27.0-32.0); MCHC 30.9 g/dL (32.0-37.0); MCV 91.8 FL (80.0-97.0); Mean Platelet Volume 12.2 FL (9.5-12.2); NRBC Per 100 WBC 0.03 X 10*3/uL (0.00-0.01); Platelet Count 325 X 10*3/uL (140-440); RBC 3.67 X 10*6/uL (4.40-5.60); RDW 16.6 % (11.5-14.5); WBC 29.41 X 10*3/uL (4.50-10.00)
[2024-12-30 10:07] LABS: Basophils # (A) 0.17 X 10*3/uL (0.00-0.10); Basophils % (A) 0.6 %; Eosinophils # (A) 0.23 X 10*3/uL (0.04-0.35); Eosinophils % (A) 0.8 %; Lymphocytes % (A) 8.8 %; Monocytes # (A) 1.85 X 10*3/uL (0.20-1.00); Monocytes % (A) 6.3 %; Neutrophils # (A) 23.51 X 10*3/uL (1.80-7.70); Neutrophils % (A) 79.9 %; RBC Morphology Normal (Normal)
[2024-12-30 10:39] LABS: Glucose,Whole Blood 192 mg/dL (70-110)
--- NOTE | 2024-12-30 11:38 | P.PN ---
Subjective Patient is seen for follow-up for acute kidney injury. Renal function has improved with serum creatinine down to 0.9 No significant complaints Maintained on normal saline Good urine output. Objective - Vital Signs Vital signs: Vital Signs Temp 97.9 F 12/30/24 03:01 Pulse 111 H 12/30/24 08:00 Resp 18 12/30/24 08:00 BP 156/74 12/30/24 07:08 Pulse Ox 99 12/30/24 07:08 FiO2 Intake & Output 12/29/24 12/30/24 12/30/24 18:59 06:59 18:59 Weight 82 kg Other: Voiding Method Bedside Commode Bedside Commode Urinal Urinal # Voids 5 1 # Bowel Movements 3 1 - Exam Patient is awake, comfortable, no acute distress. 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 exam shows patient is moving all 4 extremities - Labs CBC & Chem 7: 12/30/24 02:42 12/29/24 14:58 Labs: Abnormal Lab Results - Last 24 Hours (Table) 12/29/24 12/29/24 12/29/24 Range/Units 09:35 16:53 21:54 WBC (4.50-10.00) X 10*3/uL RBC (4.40-5.60) X 10*6/uL Hgb (13.0-17.0) g/dL Hct (39.6-50.0) % MCHC (32.0-37.0) g/dL RDW (11.5-14.5) % Immature Gran # (0.00-0.04) X 10*3/uL Neutrophils # (1.80-7.70) X 10*3/uL Monocytes # (0.20-1.00) X 10*3/uL Basophils # (0.00-0.10) X 10*3/uL NRBC/100 WBC Diff (0.00-0.01) X 10*3/uL Potassium 3.3 L (3.5-5.1) mmol/L Glucose 101 H (74-99) mg/dL POC Glucose (mg/dL) 242 H 172 H (70-110) mg/dL Magnesium 1.3 L (1.6-2.3) mg/dL C-Reactive Protein 36.8 H (<1.0) mg/dL 12/30/24 12/30/24 12/30/24 Range/Units 02:42 06:45 10:38 WBC 29.41 H (4.50-10.00) X 10*3/uL RBC 3.67 L (4.40-5.60) X 10*6/uL Hgb 10.4 L (13.0-17.0) g/dL Hct 33.7 L (39.6-50.0) % MCHC 30.9 L (32.0-37.0) g/dL RDW 16.6 H (11.5-14.5) % Immature Gran # 1.05 H (0.00-0.04) X 10*3/uL Neutrophils # 23.51 H (1.80-7.70) X 10*3/uL Monocytes # 1.85 H (0.20-1.00) X 10*3/uL Basophils # 0.17 H (0.00-0.10) X 10*3/uL NRBC/100 WBC Diff 0.03 H (0.00-0.01) X 10*3/uL Potassium (3.5-5.1) mmol/L Glucose (74-99) mg/dL POC Glucose (mg/dL) 237 H 192 H (70-110) mg/dL Magnesium (1.6-2.3) mg/dL C-Reactive Protein (<1.0) mg/dL Microbiology - Last 24 Hours (Table) 12/28/24 10:05 Blood Culture - Preliminary Blood Assessment and Plan Assessment: 1. Acute kidney injury associated with volume depletion and ATN from hypoten yuval, nonoliguric and improving 2. Mental status changes secondary to metabolic encephalopathy secondary to hyperosmolar nonketotic diabetic state with hyperglycemia and serum glucose of 951 on admission 3. Pseudohyponatremia associated with severe hyperglycemia, improved with improved blood sugars 4. History of C. difficile colitis 5. History of substance abuse/cocaine, urine drug screen negative this admission 6. Nongap metabolic acidosis associated with acute kidney injury Plan: May DC IV fluids Repeat magnesium level Replace magnesium aggressively if remains low. Continue to hold MISHA inhibitors Avoid any nephrotoxic agents
[2024-12-30 12:02] LABS: Blood Urea Nitrogen 7.8 mg/dL (9.0-27.0); Calcium 8.5 mg/dL (8.7-10.3); Carbon Dioxide 23.9 mmol/L (21.6-31.8); Chloride 104 mmol/L (96-109); Glucose 201 mg/dL (70-110); Potassium 3.5 mmol/L (3.5-5.5); Sodium 141 mmol/L (135-145)
--- NOTE | 2024-12-30 15:12 | P.PN ---
Subjective Progress Note Date: 12/30/24 Principal diagnosis: Reason for follow-up is MRSA bacteremia pneumonia Patient is a 69-year-old -[place] male with a past medical history difficult for diabetes mellitus reflux hypertension pneumonia presenting to the hospital for evaluation of confusion and lethargy patient has been diagnosed with pneumonia blood cultures came back positive with MRSA prompted this con sultation. On today's evaluation that is 12/30/2024, Patient is afebrile patient is currently on 4 L current oxygen and denies having any shortness of breath, the patient denies any chest pain or any worsening cough, the patient denies any nausea vomiting did not have any abdominal pain and no diarrhea. Patient white count is 29.41 creatinine is 1.0 blood culture repeat so far negative, cervical spine MRI did not show any epidural abscess moderate disc degenerative changes patient also have a CT angiogram of the chest did shows multifocal pneumonia but did not mention any empyema Objective - Vital Signs Vital signs: Vital Signs Temp 97.9 F 12/30/24 03:01 Pulse 111 H 12/30/24 08:00 Resp 18 12/30/24 08:00 BP 156/74 12/30/24 07:08 Pulse Ox 99 12/30/24 07:08 FiO2 Intake & Output 12/29/24 12/30/24 12/30/24 18:59 06:59 18:59 Weight 82 kg Other: Voiding Method Bedside Commode Bedside Commode Urinal Urinal # Voids 5 1 2 # Bowel Movements 3 1 1 - Exam GENERAL DESCRIPTION: An elderly male lying in bed in no distress RESPIRATORY SYSTEM: Unlabored breathing , decreased breath sounds at bases HEART: S1 S2 regular rate and rhythm , ABDOMEN: Soft , no tenderness EXTREMITIES: No edema feet - Labs CBC & Chem 7: 12/30/24 02:42 12/30/24 02:42 Labs: Abnormal Lab Results - Last 24 Hours (Table) 12/29/24 12/29/24 12/30/24 Range/Units 16:53 21:54 02:42 WBC 29.41 H (4.50-10.00) X 10*3/uL RBC 3.67 L (4.40-5.60) X 10*6/uL Hgb 10.4 L (13.0-17.0) g/dL Hct 33.7 L (39.6-50.0) % MCHC 30.9 L (32.0-37.0) g/dL RDW 16.6 H (11.5-14.5) % Immature Gran # 1.05 H (0.00-0.04) X 10*3/uL Neutrophils # 23.51 H (1.80-7.70) X 10*3/uL Monocytes # 1.85 H (0.20-1.00) X 10*3/uL Basophils # 0.17 H (0.00-0.10) X 10*3/uL NRBC/100 WBC Diff 0.03 H (0.00-0.01) X 10*3/uL Anion Gap (4.00-12.00) mmol/L BUN (9.0-27.0) mg/dL BUN/Creatinine Ratio (12.00-20.00) Ratio Glucose (70-110) mg/dL POC Glucose (mg/dL) 242 H 172 H (70-110) mg/dL Calcium (8.7-10.3) mg/dL Magnesium (1.5-2.4) mg/dL C-Reactive Protein (0.00-0.80) mg/dL 12/30/24 12/30/24 12/30/24 Range/Units 02:42 06:45 10:38 WBC (4.50-10.00) X 10*3/uL RBC (4.40-5.60) X 10*6/uL Hgb (13.0-17.0) g/dL Hct (39.6-50.0) % MCHC (32.0-37.0) g/dL RDW (11.5-14.5) % Immature Gran # (0.00-0.04) X 10*3/uL Neutrophils # (1.80-7.70) X 10*3/uL Monocytes # (0.20-1.00) X 10*3/uL Basophils # (0.00-0.10) X 10*3/uL NRBC/100 WBC Diff (0.00-0.01) X 10*3/uL Anion Gap 13.10 H (4.00-12.00) mmol/L BUN 7.8 L (9.0-27.0) mg/dL BUN/Creatinine Ratio 7.80 L (12.00-20.00) Ratio Glucose 201 H (70-110) mg/dL POC Glucose (mg/dL) 237 H 192 H (70-110) mg/dL Calcium 8.5 L (8.7-10.3) mg/dL Magnesium 1.0 L (1.5-2.4) mg/dL C-Reactive Protein 32.60 H (0.00-0.80) mg/dL Microbiology - Last 24 Hours (Table) 12/29/24 03:56 Blood Culture - Preliminary Blood 12/28/24 10:05 Blood Culture - Preliminary Blood Assessment and Plan (1) MRSA bacteremia Current Visit: Yes Status: Acute Code(s): R78.81 - BACTEREMIA; B95.62 - METHICILLIN RESIS STAPH INFCT CAUSING DISEASES [facility]SD [facility] SNOMED Code(s): 91846341103706364 (2) Pneumonia Current Visit: Yes Status: Acute Code(s): J18.9 - PNEUMONIA, UNSPECIFIED ORGANISM SNOMED Code(s): 695037238 (3) Sepsis Current Visit: Yes Status: Acute Code(s): A41.9 - SEPSIS, UNSPECIFIED ORGANISM SNOMED Code(s): 73587544 Plan: 1patient presented hospital with sepsis in this patient who did have fever tachycardia elevated white count meeting currently for SIRS source likely pneumonia now with evidence of MRSA bacteremia. 2patient with MRSA bacteremia source is likely pneumonia. 3blood culture has been repeated to document clearance of his bacteremia which are negative so far. 4patient did have extensive workup including CT angiogram of the chest that was negative for PE did not show any empyema MRI of the cervical spine did not show any evidence of epidural abscess or discitis 5elevated white count questionably medication related versus oropharyngeal candidiasis will add Diflucan and see response continue with vancomycin Dictation was produced using [employer] software. please excuse any grammatical, word or spelling errors.
[2024-12-30] MEDS: FLUCONAZOLE 100 MG TAB PO ONE (15:17)
--- NOTE | 2024-12-30 15:29 | P.PN ---
Subjective Progress Note Date: 12/30/24 Hospital Course: Is a 69-year-old male with past medical history of DM, HHS admissions, recurrent UTIs, history of substance use, history of carotid artery stenosis, COPD, interstitial lung disease, chronic thrombocytopenia secondary to alcoholism, C. difficile colitis November 2024, esophageal varices. Presented to the ER on 12/25, patient poor historian. Patient history obtained from . She reported that patient has not been eating a full meal since the and has not been taking his medications properly. Since then he has been having worsening shortness of breath, generalized weakness and confusion. He was also noted to be very dry and looks like he had a lot of weight loss. She noted that he had a nonproductive cough, and diarrhea. There was no noted fever, chest pain, changes in urination, extremity swelling, facial asymmetry, changes in speech, changes in vision, rec ent illness, or recent travel. On admission, brain CT showed no acute intracranial process. Chest x-ray showed multifocal airspace opacities to correlate for pneumonia and to exclude pulmonary edema. Labs on admission showed WBC 25, hemoglobin 10.6, MCV 99.9, platelet count 266,000, PT 11.6, INR 1.1, PTT 28.3, sodium 128, potassium 7.7, chloride 103, bicarb 14, BUN 43, creatinine 2.3, glucose 951, lactic acid 2.5, calcium 9.2, magnesium 1.4, total bilirubin 0.7, AST 17, ALT 17, alk phos 136, ammonia less than 9, albumin 2.7. Acetone negative. Cepheid 4 negative. VBG pH 7.21, pCO2 42, bicarb 17. Patient was admitted for acute metabolic encephalopathy, HHS, hyperkalemic jim gency, started on insulin drip, nephrology consulted, MISHA inhibitor on hold. He was started on azithromycin and ceftriaxone for possible community-acquired pneumonia. Insulin drip was discontinued on 12/27, patient was switched to basal bolus with Levemir 20 nightly, mealtime Humalog 8 units and sliding scale insulin, continued on IV fluids, kidney function is improving, nephrology following. TTE showed no acute abnormalities, normal EF. MRSA swab came back positive, patient was switched to vancomycin SOT 12/27, pending urine and blood cultures. Social work consulted, PT OT consulted, patient has history of medications noncompliance. Overall mental status significantly improved, patien t is able to ambulate, uses bathroom, will be transferred from ICU once a bed was available Pertinent Imaging: TTE showed normal systolic function, no pericardial effusion Subjective: Patient complains of worsening neck pain. BCx growing MRSA, ID consulted. Pertinent positives and negatives as discussed above, a complete review of systems was performed and all other systems are negative. Vitals Signs Reviewed. Gen: In NAD, non-toxic HEENT: normocephalic, atraumatic, hearing acuity is intant, mucous membranes moist CVS: perfusing all extremities well, no pitting edema, Respiratory: symmetric chest expansion, no accessory muscle use, GI: soft, NTTP, ND, : no suprapubic tenderness, no CVA tenderness MSK/Derm: no rashes, cyanosis Neuro: CN II-XII intact, + b/l handgrip weakness Psych: cooperative, euthymic mood, judgment and insight is intact Assessment and Plan:#. Acute metabolic encephalopathy, improving HHS, resolved Pseudohyponatremia secondary to above Nonaniongap metabolic acidosis secondary to above, improving Lactic acidosis secondary to above -Insulin drip discontinued, patient started on basal bolus but Levemir 20 at bedtime, Humalog 8 units AC 3 times daily, sliding scale insulin -BMP daily -Cardiac telemetry -Fall precautions -Stable, will be transferred from ICU, pending bed availability -Patient is noncompliant with his insulins, social work consulted, PT OT Hyperkalemic emergency secondary to HHS, resolved LATOYA secondary to volume depletion, ATN, nonoliguric -Nephrology following, holding MISHA, continue IV fluids, changed to half-normal saline -Added sodium bicarb oral -Monitor BMP Hypomagnesemia, resolved -Follow-up magnesium level Acute hypoxic respiratory failure secondary to community-acquired pneumonia, MRSA Bacteremia -Afebrile since 12/26 11 a.m., WBC trending down 25.0-22.4 -Antibiotics SOT 12/25, patient was initially on Rocephin and azithromycin, Legionella negative, MRSA swab positive, started on vancomycin on 12/27 -Monitor CBC -blood cultures, sputum cultures-pending, and urine legionella -negative urine Legionella -ID consulted -repeat Cx ordered, -MR C-spine negative for epidural abscess or osteomyelitis Chronic Conditions: GERD Hypertension, currently hypotensive Depression History of C. difficile -Hold home labetalol 100 3 times daily, holding home lisinopril in the settings of LATOYA, holding home potassium chloride, resumed home folic acid 1 mg DVT ppx: Lovenox 40 mg SQ daily Dispo: The patient is admitted with an anticipated greater than than 2 midnight stay for evaluation of DKA Anticipated discharge place: tbd, PT OT consulted Objective - Vital Signs Vital signs: Vital Signs Temp 97.9 F 12/30/24 03:01 Pulse 111 H 12/30/24 08:00 Resp 18 12/30/24 08:00 BP 156/74 12/30/24 07:08 Pulse Ox 99 12/30/24 07:08 FiO2 Intake & Output 12/29/24 12/30/24 12/30/24 18:59 06:59 18:59 Weight 82 kg Other: Voiding Method Bedside Commode Bedside Commode Urinal Urinal # Voids 5 1 2 # Bowel Movements 3 1 1 - Labs CBC & Chem 7: 12/30/24 02:42 12/30/24 02:42 Labs: Abnormal Lab Results - Last 24 Hours (Table) 12/29/24 12/29/24 12/30/24 Range/Units 16:53 21:54 02:42 WBC 29.41 H (4.50-10.00) X 10*3/uL RBC 3.67 L (4.40-5.60) X 10*6/uL Hgb 10.4 L (13.0-17.0) g/dL Hct 33.7 L (39.6-50.0) % MCHC 30.9 L (32.0-37.0) g/dL RDW 16.6 H (11.5-14.5) % Immature Gran # 1.05 H (0.00-0.04) X 10*3/uL Neutrophils # 23.51 H (1.80-7.70) X 10*3/uL Monocytes # 1.85 H (0.20-1.00) X 10*3/uL Basophils # 0.17 H (0.00-0.10) X 10*3/uL NRBC/100 WBC Diff 0.03 H (0.00-0.01) X 10*3/uL Anion Gap (4.00-12.00) mmol/L BUN (9.0-27.0) mg/dL BUN/Creatinine Ratio (12.00-20.00) Ratio Glucose (70-110) mg/dL POC Glucose (mg/dL) 242 H 172 H (70-110) mg/dL Calcium (8.7-10.3) mg/dL Magnesium (1.5-2.4) mg/dL C-Reactive Protein (0.00-0.80) mg/dL 12/30/24 12/30/24 12/30/24 Range/Units 02:42 06:45 10:38 WBC (4.50-10.00) X 10*3/uL RBC (4.40-5.60) X 10*6/uL Hgb (13.0-17.0) g/dL Hct (39.6-50.0) % MCHC (32.0-37.0) g/dL RDW (11.5-14.5) % Immature Gran # (0.00-0.04) X 10*3/uL Neutrophils # (1.80-7.70) X 10*3/uL Monocytes # (0.20-1.00) X 10*3/uL Basophils # (0.00-0.10) X 10*3/uL NRBC/100 WBC Diff (0.00-0.01) X 10*3/uL Anion Gap 13.10 H (4.00-12.00) mmol/L BUN 7.8 L (9.0-27.0) mg/dL BUN/Creatinine Ratio 7.80 L (12.00-20.00) Ratio Glucose 201 H (70-110) mg/dL POC Glucose (mg/dL) 237 H 192 H (70-110) mg/dL Calcium 8.5 L (8.7-10.3) mg/dL Magnesium 1.0 L (1.5-2.4) mg/dL C-Reactive Protein 32.60 H (0.00-0.80) mg/dL Microbiology - Last 24 Hours (Table) 12/29/24 03:56 Blood Culture - Preliminary Blood 12/28/24 10:05 Blood Culture - Preliminary Blood
[2024-12-30 16:30] LABS: Glucose,Whole Blood 134 mg/dL (70-110)
[2024-12-30] MEDS: MAGNESIUM SULFATE-D5W PMX 1 GM in DEXTROSE/WATER 1 100ML.BAG IVPB SCH (17:01)
[2024-12-30 21:00] LABS: Glucose,Whole Blood 190 mg/dL (70-110)
[2024-12-31 04:52] LABS: African American GFR (CKD) >90 (>60 ml/min/1.73 sqM); Anion Gap 8 mmol/L; Blood Urea Nitrogen 7 mg/dL (9-20); Calcium 8.2 mg/dL (8.4-10.2); Carbon Dioxide 26 mmol/L (22-30); Chloride 103 mmol/L (98-107); Glucose 249 mg/dL (74-99); Non-African American GFR(CKD) >90 (>60 ml/min/1.73 sqM); Potassium 3.9 mmol/L (3.5-5.1); Sodium 137 mmol/L (137-145)
[2024-12-31 05:08] LABS: C Reactive Protein 23.8 mg/dL (<1.0)
[2024-12-31 06:26] LABS: Glucose,Whole Blood 239 mg/dL (70-110)
[2024-12-31] MEDS: FLUCONAZOLE 100 MG TAB PO SCH (07:42)
[2024-12-31 08:40] LABS: HCT 29.8 % (39.6-50.0); MCHC 30.2 g/dL (32.0-37.0); MCV 92.8 FL (80.0-97.0); Mean Platelet Volume 12.2 FL (9.5-12.2); NRBC Per 100 WBC 0.02 X 10*3/uL (0.00-0.01); Platelet Count 282 X 10*3/uL (140-440); RBC 3.21 X 10*6/uL (4.40-5.60); RDW 16.7 % (11.5-14.5); WBC 19.04 X 10*3/uL (4.50-10.00)
[2024-12-31 09:36] LABS: Basophils % (A) 0.5 %; Eosinophils # (A) 0.19 X 10*3/uL (0.04-0.35); Lymphocytes # (A) 2.45 X 10*3/uL (0.90-5.00); Lymphocytes % (A) 12.9 %; Monocytes # (A) 1.37 X 10*3/uL (0.20-1.00); Monocytes % (A) 7.2 %; Neutrophils # (A) 14.15 X 10*3/uL (1.80-7.70); Neutrophils % (A) 74.3 %; RBC Morphology Normal (Normal)
--- NOTE | 2024-12-31 10:40 | P.PN ---
Subjective Patient is seen in follow-up for acute kidney injury. GFR at baseline. Tolerating oral intake. Admits to good urine output. No active complaints. Vital signs are stable. General: No acute distress. HEENT: Head exam is unremarkable. On nasal cannula. LUNGS: No audible rhonchi or wheezes. HEART: Rate and Rhythm are regular. ABDOMEN: Nontender. EXTREMITITES: No edema. Objective - Vital Signs Vital signs: Vital Signs Temp 97.9 F 12/31/24 06:30 Pulse 98 12/31/24 09:51 Resp 18 12/31/24 09:51 BP 167/87 12/31/24 06:30 Pulse Ox 98 12/31/24 06:30 FiO2 Intake & Output 12/30/24 12/31/24 12/31/24 18:59 06:59 18:59 Intake Total 3290 Balance 3290 Weight 84.5 kg Intake: Oral 3290 Other: Voiding Method Bedside Commode Bedside Commode Urinal Urinal # Voids 4 8 # Bowel Movements 1 2 - Labs CBC & Chem 7: 12/31/24 02:43 12/31/24 02:43 Labs: Abnormal Lab Results - Last 24 Hours (Table) 12/30/24 12/30/24 12/30/24 Range/Units 02:42 10:38 16:28 WBC (4.50-10.00) X 10*3/uL RBC (4.40-5.60) X 10*6/uL Hgb (13.0-17.0) g/dL Hct (39.6-50.0) % MCHC (32.0-37.0) g/dL RDW (11.5-14.5) % Immature Gran # (0.00-0.04) X 10*3/uL Neutrophils # (1.80-7.70) X 10*3/uL Monocytes # (0.20-1.00) X 10*3/uL NRBC/100 WBC Diff (0.00-0.01) X 10*3/uL Anion Gap 13.10 H (4.00-12.00) mmol/L BUN 7.8 L (9.0-27.0) mg/dL BUN/Creatinine Ratio 7.80 L (12.00-20.00) Ratio Glucose 201 H (70-110) mg/dL POC Glucose (mg/dL) 192 H 134 H (70-110) mg/dL Calcium 8.5 L (8.7-10.3) mg/dL Magnesium 1.0 L (1.5-2.4) mg/dL C-Reactive Protein 32.60 H (0.00-0.80) mg/dL 12/30/24 12/31/24 12/31/24 Range/Units 20:59 02:43 02:43 WBC 19.04 H (4.50-10.00) X 10*3/uL RBC 3.21 L (4.40-5.60) X 10*6/uL Hgb 9.0 L (13.0-17.0) g/dL Hct 29.8 L (39.6-50.0) % MCHC 30.2 L (32.0-37.0) g/dL RDW 16.7 H (11.5-14.5) % Immature Gran # 0.78 H (0.00-0.04) X 10*3/uL Neutrophils # 14.15 H (1.80-7.70) X 10*3/uL Monocytes # 1.37 H (0.20-1.00) X 10*3/uL NRBC/100 WBC Diff 0.02 H (0.00-0.01) X 10*3/uL Anion Gap (4.00-12.00) mmol/L BUN 7 L (9.0-27.0) mg/dL BUN/Creatinine Ratio (12.00-20.00) Ratio Glucose 249 H (70-110) mg/dL POC Glucose (mg/dL) 190 H (70-110) mg/dL Calcium 8.2 L (8.7-10.3) mg/dL Magnesium (1.5-2.4) mg/dL C-Reactive Protein 23.8 H (0.00-0.80) mg/dL 12/31/24 Range/Units 06:25 WBC (4.50-10.00) X 10*3/uL RBC (4.40-5.60) X 10*6/uL Hgb (13.0-17.0) g/dL Hct (39.6-50.0) % MCHC (32.0-37.0) g/dL RDW (11.5-14.5) % Immature Gran # (0.00-0.04) X 10*3/uL Neutrophils # (1.80-7.70) X 10*3/uL Monocytes # (0.20-1.00) X 10*3/uL NRBC/100 WBC Diff (0.00-0.01) X 10*3/uL Anion Gap (4.00-12.00) mmol/L BUN (9.0-27.0) mg/dL BUN/Creatinine Ratio (12.00-20.00) Ratio Glucose (70-110) mg/dL POC Glucose (mg/dL) 239 H (70-110) mg/dL Calcium (8.7-10.3) mg/dL Magnesium (1.5-2.4) mg/dL C-Reactive Protein (0.00-0.80) mg/dL Microbiology - Last 24 Hours (Table) 12/28/24 10:05 Blood Culture - Preliminary Blood 12/29/24 03:56 Blood Culture - Preliminary Blood Assessment and Plan Plan: Assessment: 1. Acute kidney injury secondary to vasomotor nephropathy secondary to hypovolemia and hypotension. Resolved. 2. Metabolic encephalopathy secondary to HHNK. Improved. 3. Hypertonic hyponatremia secondary to hyperglycemia. Resolved. 4. Diabetes mellitus. 5. Metabolic acidosis secondary to acute kidney injury and HHNK. Resolved. 6. Hypomagnesemia from poor intake. Replaced. Better. Plan: Encouraged oral intake. Add oral magnesium oxide. Stop bicarb. Replace electrolytes as needed.
[2024-12-31 11:30] LABS: Glucose,Whole Blood 247 mg/dL (70-110)
[2024-12-31] MEDS: MAGNESIUM OXIDE 400 MG TAB PO SCH (11:56)
--- NOTE | 2024-12-31 12:24 | P.PN ---
Subjective Progress Note Date: 12/31/24 Principal diagnosis: Reason for follow-up is MRSA bacteremia pneumonia Patient is a 69-year-old -[place] male with a past medical history difficult for diabetes mellitus reflux hypertension pneumonia presenting to the hospital for evaluation of confusion and lethargy patient has been diagnosed with pneumonia blood cultures came back positive with MRSA prompted this con sultation. On today's evaluation that is 12/31/2024, patient has been afebrile, patient is breathing comfortably and is currently on 4 L current oxygen patient denies having any chest pain or any worsening, patient denies nausea vomiting or diarrhea and no abdominal pain. Patient white count is down to 19.04 creatinine 0.81 blood culture repeat has been negative so far Objective - Vital Signs Vital signs: Vital Signs Temp 97.9 F 12/31/24 06:30 Pulse 98 12/31/24 09:51 Resp 18 12/31/24 09:51 BP 167/87 12/31/24 06:30 Pulse Ox 98 12/31/24 06:30 FiO2 Intake & Output 12/30/24 12/31/24 12/31/24 18:59 06:59 18:59 Intake Total 3290 Balance 3290 Weight 84.5 kg Intake: Oral 3290 Other: Voiding Method Bedside Commode Bedside Commode Urinal Urinal # Voids 4 8 # Bowel Movements 1 2 - Exam GENERAL DESCRIPTION: An elderly male lying in bed in no distress RESPIRATORY SYSTEM: Unlabored breathing , decreased breath sounds at bases HEART: S1 S2 regular rate and rhythm , ABDOMEN: Soft , no tenderness EXTREMITIES: No edema feet - Labs CBC & Chem 7: 12/31/24 02:43 12/31/24 02:43 Labs: Abnormal Lab Results - Last 24 Hours (Table) 12/30/24 12/30/24 12/31/24 Range/Units 16:28 20:59 02:43 WBC (4.50-10.00) X 10*3/uL RBC (4.40-5.60) X 10*6/uL Hgb (13.0-17.0) g/dL Hct (39.6-50.0) % MCHC (32.0-37.0) g/dL RDW (11.5-14.5) % Immature Gran # (0.00-0.04) X 10*3/uL Neutrophils # (1.80-7.70) X 10*3/uL Monocytes # (0.20-1.00) X 10*3/uL NRBC/100 WBC Diff (0.00-0.01) X 10*3/uL BUN 7 L (9-20) mg/dL Glucose 249 H (74-99) mg/dL POC Glucose (mg/dL) 134 H 190 H (70-110) mg/dL Calcium 8.2 L (8.4-10.2) mg/dL C-Reactive Protein 23.8 H (<1.0) mg/dL 12/31/24 12/31/24 12/31/24 Range/Units 02:43 06:25 11:29 WBC 19.04 H (4.50-10.00) X 10*3/uL RBC 3.21 L (4.40-5.60) X 10*6/uL Hgb 9.0 L (13.0-17.0) g/dL Hct 29.8 L (39.6-50.0) % MCHC 30.2 L (32.0-37.0) g/dL RDW 16.7 H (11.5-14.5) % Immature Gran # 0.78 H (0.00-0.04) X 10*3/uL Neutrophils # 14.15 H (1.80-7.70) X 10*3/uL Monocytes # 1.37 H (0.20-1.00) X 10*3/uL NRBC/100 WBC Diff 0.02 H (0.00-0.01) X 10*3/uL BUN (9-20) mg/dL Glucose (74-99) mg/dL POC Glucose (mg/dL) 239 H 247 H (70-110) mg/dL Calcium (8.4-10.2) mg/dL C-Reactive Protein (<1.0) mg/dL Microbiology - Last 24 Hours (Table) 12/28/24 10:05 Blood Culture - Preliminary Blood 12/29/24 03:56 Blood Culture - Preliminary Blood Assessment and Plan (1) MRSA bacteremia Current Visit: Yes Status: Acute Code(s): R78.81 - BACTEREMIA; B95.62 - METHICILLIN RESIS STAPH INFCT CAUSING DISEASES CL[facility]SD [facility] SNOMED Code(s): 77299918007413358 (2) Pneumonia Current Visit: Yes Status: Acute Code(s): J18.9 - PNEUMONIA, UNSPECIFIED ORGANISM SNOMED Code(s): 996095586 (3) Sepsis Current Visit: Yes Status: Acute Code(s): A41.9 - SEPSIS, UNSPECIFIED ORGANISM SNOMED Code(s): 81080197 Plan: 1patient presented hospital with sepsis in this patient who did have fever tachycardia elevated white count meeting currently for SIRS source likely pneumonia now with evidence of MRSA bacteremia. 2patient with MRSA bacteremia source is likely pneumonia. 3blood culture has been repeated, which are negative so far. 4patient did have extensive workup including CT angiogram of the chest that was negative for PE did not show any empyema MRI of the cervical spine did not show any evidence of epidural abscess or discitis 5patient white count is trending down with addition of Diflucan to continue along with vancomycin, if the blood culture negative by tomorrow he can get a PICC line for outpatient IV vancomycin Dictation was produced using [employer] dictation software. please excuse any grammatical, word or spelling errors. Time with Patient: Less than 30
--- NOTE | 2024-12-31 13:52 | P.PN ---
Subjective Progress Note Date: 12/31/24 Hospital Course: Is a 69-year-old male with past medical history of DM, HHS admissions, recurrent UTIs, history of substance use, history of carotid artery stenosis, COPD, interstitial lung disease, chronic thrombocytopenia secondary to alcoholism, C. difficile colitis November 2024, esophageal varices. Presented to the ER on 12/25, patient poor historian. Patient history obtained from . She reported that patient has not been eating a full meal since the and has not been taking his medications properly. Since then he has been having worsening shortness of breath, generalized weakness and confusion. He was also noted to be very dry and looks like he had a lot of weight loss. She noted that he had a nonproductive cough, and diarrhea. There was no noted fever, chest pain, changes in urination, extremity swelling, facial asymmetry, changes in speech, changes in vision, rec ent illness, or recent travel. On admission, brain CT showed no acute intracranial process. Chest x-ray showed multifocal airspace opacities to correlate for pneumonia and to exclude pulmonary edema. Labs on admission showed WBC 25, hemoglobin 10.6, MCV 99.9, platelet count 266,000, PT 11.6, INR 1.1, PTT 28.3, sodium 128, potassium 7.7, chloride 103, bicarb 14, BUN 43, creatinine 2.3, glucose 951, lactic acid 2.5, calcium 9.2, magnesium 1.4, total bilirubin 0.7, AST 17, ALT 17, alk phos 136, ammonia less than 9, albumin 2.7. Acetone negative. Cepheid 4 negative. VBG pH 7.21, pCO2 42, bicarb 17. Patient was admitted for acute metabolic encephalopathy, HHS, hyperkalemic jim gency, started on insulin drip, nephrology consulted, MISHA inhibitor on hold. He was started on azithromycin and ceftriaxone for possible community-acquired pneumonia. Insulin drip was discontinued on 12/27, patient was switched to basal bolus with Levemir 20 nightly, mealtime Humalog 8 units and sliding scale insulin, continued on IV fluids, kidney function is improving, nephrology following. TTE showed no acute abnormalities, normal EF. MRSA swab came back positive, patient was switched to vancomycin SOT 12/27, pending urine and blood cultures. Social work consulted, PT OT consulted, patient has history of medications noncompliance. Overall mental status significantly improved, patien t is able to ambulate, uses bathroom, will be transferred from ICU once a bed was available Pertinent Imaging: TTE showed normal systolic function, no pericardial effusion Subjective: No new complaints. Will need PICC line once documented clearance of BCx, and outpt IV abx with vanco per ID. Would benefit from outpatient spine surgery evaluation once infx resolves. Pertinent positives and negatives as discussed above, a complete review of systems was performed and all other systems are negative. Vitals Signs Reviewed. Gen: In NAD, non-toxic HEENT: normocephalic, atraumatic, hearing acuity is intant, mucous membranes moist CVS: perfusing all extremities well, no pitting edema, Respiratory: symmetric chest expansion, no accessory muscle use, GI: soft, NTTP, ND, : no suprapubic tenderness, no CVA tenderness MSK/Derm: no rashes, cyanosis Neuro: CN II-XII intact, + b/l handgrip weakness Psych: cooperative, euthymic mood, judgment and insight is intact Assessment and Plan:#. Acute metabolic encephalopathy, improving HHS, resolved Pseudohyponatremia secondary to above Nonaniongap metabolic acidosis secondary to above, improving Lactic acidosis secondary to above -Insulin drip discontinued, patient started on basal bolus but Levemir 20 at bedtime, Humalog 8 units AC 3 times daily, sliding scale insulin -BMP daily -Cardiac telemetry -Fall precautions -Patient is noncompliant with his insulins, social work consulted, PT OT Hyperkalemic emergency secondary to HHS, resolved LATOYA secondary to volume depletion, ATN, nonoliguric -Nephrology following, holding MISHA, continue IV fluids, changed to half-normal saline -Added sodium bicarb oral -Monitor BMP Hypomagnesemia, resolved -Follow-up magnesium level Acute hypoxic respiratory failure secondary to community-acquired pneumonia, MRSA Bacteremia -Afebrile since 12/26 11 a.m., WBC trending down 25.0-22.4 -Antibiotics SOT 12/25, patient was initially on Rocephin and azithromycin, Legionella negative, MRSA swab positive, started on vancomycin on 12/27 -Monitor CBC -blood cultures, sputum cultures-pending, and urine legionella -negative urine Legionella -ID consulted -repeat Cx ordered, -MR C-spine negative for epidural abscess or osteomyelitis Chronic Conditions: GERD Hypertension, currently hypotensive Depression History of C. difficile -Hold home labetalol 100 3 times daily, holding home lisinopril in the settings of LATOYA, holding home potassium chloride, resumed home folic acid 1 mg DVT ppx: Lovenox 40 mg SQ daily Dispo: The patient is admitted with an anticipated greater than than 2 midnight stay for evaluation of DKA Anticipated discharge place: tbd, PT OT consulted Objective - Vital Signs Vital signs: Vital Signs Temp 97.9 F 12/31/24 06:30 Pulse 98 12/31/24 09:51 Resp 18 12/31/24 09:51 BP 167/87 12/31/24 06:30 Pulse Ox 98 12/31/24 06:30 FiO2 Intake & Output 12/30/24 12/31/24 12/31/24 18:59 06:59 18:59 Intake Total 3290 Balance 3290 Weight 84.5 kg Intake: Oral 3290 Other: Voiding Method Bedside Commode Bedside Commode Urinal Urinal # Voids 4 8 # Bowel Movements 1 2 - Labs CBC & Chem 7: 12/31/24 02:43 12/31/24 02:43 Labs: Abnormal Lab Results - Last 24 Hours (Table) 12/30/24 12/30/24 12/31/24 Range/Units 16:28 20:59 02:43 WBC (4.50-10.00) X 10*3/uL RBC (4.40-5.60) X 10*6/uL Hgb (13.0-17.0) g/dL Hct (39.6-50.0) % MCHC (32.0-37.0) g/dL RDW (11.5-14.5) % Immature Gran # (0.00-0.04) X 10*3/uL Neutrophils # (1.80-7.70) X 10*3/uL Monocytes # (0.20-1.00) X 10*3/uL NRBC/100 WBC Diff (0.00-0.01) X 10*3/uL BUN 7 L (9-20) mg/dL Glucose 249 H (74-99) mg/dL POC Glucose (mg/dL) 134 H 190 H (70-110) mg/dL Calcium 8.2 L (8.4-10.2) mg/dL C-Reactive Protein 23.8 H (<1.0) mg/dL 12/31/24 12/31/24 12/31/24 Range/Units 02:43 06:25 11:29 WBC 19.04 H (4.50-10.00) X 10*3/uL RBC 3.21 L (4.40-5.60) X 10*6/uL Hgb 9.0 L (13.0-17.0) g/dL Hct 29.8 L (39.6-50.0) % MCHC 30.2 L (32.0-37.0) g/dL RDW 16.7 H (11.5-14.5) % Immature Gran # 0.78 H (0.00-0.04) X 10*3/uL Neutrophils # 14.15 H (1.80-7.70) X 10*3/uL Monocytes # 1.37 H (0.20-1.00) X 10*3/uL NRBC/100 WBC Diff 0.02 H (0.00-0.01) X 10*3/uL BUN (9-20) mg/dL Glucose (74-99) mg/dL POC Glucose (mg/dL) 239 H 247 H (70-110) mg/dL Calcium (8.4-10.2) mg/dL C-Reactive Protein (<1.0) mg/dL Microbiology - Last 24 Hours (Table) 12/29/24 03:56 Blood Culture - Preliminary Blood 12/28/24 10:05 Blood Culture - Preliminary Blood
[2024-12-31 15:25] VITALS: BMI 26.7
[2024-12-31 16:42] LABS: Glucose,Whole Blood 221 mg/dL (70-110)
--- NOTE | 2024-12-31 17:00 | CDI ---
g Documentation Clarification Form Date: 12/31/2024 04:27:55 PM From: Ya Medrano RN, CCDS Phone: [phone] Admit Date: 12/25/2024 09:22:00 PM Patient Name: Audi Quinones Visit Number: [id number] Discharge Date: ATTENTION: The Clinical Documentation Specialists (CDI) and [facility] Coding Staff appreciate your assistance in clarifying documentation. Please respond to the clarification below the line at the bottom and electronically sign. The CDI & [facility] Coding staff will review the response and follow-up if needed. Please note: Queries are made part of the Legal Health Record. If you have any questions, please contact the author of this message via ITS. Doctor. Kristian Berry The patient has sepsis documentation in the ID consult and subsequent progress notes starting on 12/28/24. Based on this information and the findings below, is there an additional diagnosis that is clinically appropriate for this patient? History/Risk Factors: MRSA bacteremia, Clinical Indicators: 69-year-old male presenting to the hospital 3 days ago for evaluation of intermittent confusion and lethargy and lethargy getting worse. 12/25 VS 99/ 96 20 100% 5/L 12/25 WBC 25.0, Neuthrophils 22.0 12/25 Lactic acid: 2.5, 2.3 12/25 Blood cultures: Methicillin resist S. aureus 12/28 ID Consult: MRSA bacteremia, Pneumonia, Sepsis. he did spike low-grade fever 100.6 F on 12/26/2024 and a temperature of 99.8 at last evening. patient presented hospital with sepsis in this patient who did have fever tachycardia elevated white count meeting currently for SIRS source likely pneumonia now with evidence of MRSA bacteremia. 2patient with MRSA bacteremia source is likely pneumonia. Treatment: Vancomycin 1,500 MG IVPB, PTD Is there an additional diagnosis that is clinically appropriate for this patient? [ x ] Sepsis, present on admission [ ] Sepsis, developed during stay, not present on admission [ ] Severe Sepsis with organ failure present on admission [ ] Sepsis Ruled out [ ] Other, please specify [ ] Unable to determine SIRS Criteria: 2 or more of the following may indicate SIRS Temperature < 96.8F (36C) or > 101.0F (38.3C) Heart Rate > 90 bpm Respiratory Rate > 20 breaths/min or PaCO2 < 32 mmHg White Blood Cell Count > 12,000 or < 4,000 cells/mm3 or > 10% bands (Template Last Reviewed: November 2022) [facility]
[2024-12-31 21:16] LABS: Glucose,Whole Blood 382 mg/dL (70-110)
[2025-01-01 06:16] LABS: Glucose,Whole Blood 174 mg/dL (70-110)
[2025-01-01 07:38] LABS: Glucose,Whole Blood 195 mg/dL (70-110)
--- NOTE | 2025-01-01 09:54 | P.PN ---
Subjective Patient is seen in follow-up for acute kidney injury. GFR at baseline. Tolerating oral intake. Admits to good urine output. No active complaints. Vital signs are stable. General: No acute distress. HEENT: Head exam is unremarkable. On nasal cannula. LUNGS: No audible rhonchi or wheezes. HEART: Rate and Rhythm are regular. ABDOMEN: Nontender. EXTREMITITES: No edema. Objective - Vital Signs Vital signs: Vital Signs Temp 98.3 F 01/01/25 07:37 Pulse 105 H 01/01/25 07:37 Resp 20 01/01/25 07:37 BP 138/79 01/01/25 07:37 Pulse Ox 98 01/01/25 07:37 FiO2 Intake & Output 12/31/24 01/01/25 01/01/25 18:59 06:59 18:59 Output Total 1 1 Balance -1 -1 Weight 84.5 kg 79.5 kg Output: Stool 1 1 Other: Voiding Method Bedside Commode Bedside Commode Urinal Urinal # Voids 4 5 # Bowel Movements 2 - Labs CBC & Chem 7: 12/31/24 02:43 12/31/24 02:43 Labs: Abnormal Lab Results - Last 24 Hours (Table) 12/31/24 12/31/24 12/31/24 Range/Units 11:29 16:41 21:15 POC Glucose (mg/dL) 247 H 221 H 382 H (70-110) mg/dL 01/01/25 01/01/25 Range/Units 06:15 07:36 POC Glucose (mg/dL) 174 H 195 H (70-110) mg/dL Microbiology - Last 24 Hours (Table) 12/28/24 10:05 Blood Culture - Preliminary Blood 12/29/24 03:56 Blood Culture - Preliminary Blood Assessment and Plan Plan: Assessment: 1. Acute kidney injury secondary to vasomotor nephropathy secondary to hypovolemia and hypotension. Resolved. 2. Metabolic encephalopathy secondary to HHNK. Improved. 3. Hypertonic hyponatremia secondary to hyperglycemia. Resolved. 4. Diabetes mellitus. 5. Metabolic acidosis secondary to acute kidney injury and HHNK. Resolved. 6. Hypomagnesemia from poor intake. Replaced. Better. On oral magnesium oxide. Plan: Encouraged oral intake. Replace electrolytes as needed. Repeat labs in the morning.
[2025-01-01 11:44] LABS: Glucose,Whole Blood 209 mg/dL (70-110)
[2025-01-01 12:48] LABS: Blood Urea Nitrogen 5.6 mg/dL (9.0-27.0); Calcium 8.4 mg/dL (8.7-10.3); Carbon Dioxide 28.4 mmol/L (21.6-31.8); Chloride 101 mmol/L (96-109); Glucose 179 mg/dL (70-110); Magnesium 1.2 mg/dL (1.5-2.4); Potassium 3.8 mmol/L (3.5-5.5); Sodium 139 mmol/L (135-145)
--- NOTE | 2025-01-01 13:51 | P.PN ---
Subjective Progress Note Date: 01/01/25 Principal diagnosis: Reason for follow-up is MRSA bacteremia pneumonia Patient is a 69-year-old -[place] male with a past medical history difficult for diabetes mellitus reflux hypertension pneumonia presenting to the hospital for evaluation of confusion and lethargy patient has been diagnosed with pneumonia blood cultures came back positive with MRSA prompted this con sultation. On today's evaluation that is 01/01/2025, Patient is afebrile this morning patient denies having any chest pain patient is breathing more comfortably continue to have a cough but no worsening of, the patient is currently on 3 L nasal cannula oxygen, patient denies any abdominal pain no diarrhea no nausea no vomiting. Patient did have a creatinine 0.8 no CBC was done today blood culture from 12/28/2024 as well as 12/29/2024 has been negative Objective - Vital Signs Vital signs: Vital Signs Temp 98.3 F 01/01/25 07:37 Pulse 105 H 01/01/25 07:37 Resp 20 01/01/25 07:37 BP 138/79 01/01/25 07:37 Pulse Ox 98 01/01/25 07:37 FiO2 Intake & Output 12/31/24 01/01/25 01/01/25 18:59 06:59 18:59 Output Total 1 1 Balance -1 -1 Weight 84.5 kg 79.5 kg Output: Stool 1 1 Other: Voiding Method Bedside Commode Bedside Commode Urinal Urinal # Voids 4 5 # Bowel Movements 2 - Exam GENERAL DESCRIPTION: An elderly male lying in bed in no distress RESPIRATORY SYSTEM: Unlabored breathing , decreased breath sounds at bases HEART: S1 S2 regular rate and rhythm , ABDOMEN: Soft , no tenderness EXTREMITIES: No edema feet - Labs CBC & Chem 7: 12/31/24 02:43 01/01/25 07:04 Labs: Abnormal Lab Results - Last 24 Hours (Table) 12/31/24 12/31/24 01/01/25 Range/Units 16:41 21:15 06:15 BUN (9.0-27.0) mg/dL BUN/Creatinine Ratio (12.00-20.00) Ratio Glucose (70-110) mg/dL POC Glucose (mg/dL) 221 H 382 H 174 H (70-110) mg/dL Calcium (8.7-10.3) mg/dL Magnesium (1.5-2.4) mg/dL 01/01/25 01/01/25 01/01/25 Range/Units 07:04 07:36 11:40 BUN 5.6 L (9.0-27.0) mg/dL BUN/Creatinine Ratio 7.00 L (12.00-20.00) Ratio Glucose 179 H (70-110) mg/dL POC Glucose (mg/dL) 195 H 209 H (70-110) mg/dL Calcium 8.4 L (8.7-10.3) mg/dL Magnesium 1.2 L (1.5-2.4) mg/dL Microbiology - Last 24 Hours (Table) 12/29/24 03:56 Blood Culture - Preliminary Blood 12/28/24 10:05 Blood Culture - Preliminary Blood Assessment and Plan (1) MRSA bacteremia Current Visit: Yes Status: Acute Code(s): R78.81 - BACTEREMIA; B95.62 - METHICILLIN RESIS STAPH INFCT [facility] Code(s): 38175186194029148 (2) Pneumonia Current Visit: Yes Status: Acute Code(s): J18.9 - PNEUMONIA, UNSPECIFIED ORGANISM SNOMED Code(s): 112098089 (3) Sepsis Current Visit: Yes Status: Acute Code(s): A41.9 - SEPSIS, UNSPECIFIED ORGANISM SNOMED Code(s): 18776062 Plan: 1patient presented hospital with sepsis in this patient who did have fever tachycardia elevated white count meeting currently for SIRS source likely pneumonia now with evidence of MRSA bacteremia. 2patient with MRSA bacteremia source is likely pneumonia. 3blood culture has been repeated, which are negative so far. 4patient did have extensive workup including CT angiogram of the chest that was negative for PE did not show any empyema MRI of the cervical spine did not show any evidence of epidural abscess or discitis, patient did have a echocardiogram did show normal cardiac valve with only 1 positive blood culture clinical and behaving as endocarditis 5patient patient to to continue with Diflucan along with vancomycin, repeat CBC with a.m. lab you should be able to get a PICC line for outpatient IV antibiotics duration will be 2 weeks Dictation was produced using [employer] software. please excuse any grammatical, word or spelling errors. Time with Patient: Less than 30
[2025-01-01 14:12] LABS: Basophils % (A) 0.8 %; Eosinophils % (A) 0.9 %; HGB 9.6 g/dL (13.0-17.0); Lymphocytes # (A) 2.25 X 10*3/uL (0.90-5.00); MCH 27.3 pg (27.0-32.0); MCHC 29.1 g/dL (32.0-37.0); MCV 93.8 FL (80.0-97.0); Mean Platelet Volume 12.3 FL (9.5-12.2); Monocytes # (A) 1.27 X 10*3/uL (0.20-1.00); Monocytes % (A) 6.8 %; NRBC Per 100 WBC 0.03 X 10*3/uL (0.00-0.01); Neutrophils # (A) 14.23 X 10*3/uL (1.80-7.70); Neutrophils % (A) 76.2 %; Platelet Count 249 X 10*3/uL (140-440); RBC 3.52 X 10*6/uL (4.40-5.60); WBC 18.68 X 10*3/uL (4.50-10.00)
[2025-01-01 14:13] LABS: Basophils # (A) 0.15 X 10*3/uL (0.00-0.10); Eosinophils # (A) 0.16 X 10*3/uL (0.04-0.35)
--- NOTE | 2025-01-01 14:44 | P.PN ---
Subjective Progress Note Date: 01/01/25 Hospital Course: Is a 69-year-old male with past medical history of DM, HHS admissions, recurrent UTIs, history of substance use, history of carotid artery stenosis, COPD, interstitial lung disease, chronic thrombocytopenia secondary to alcoholism, C. difficile colitis November 2024, esophageal varices. Presented to the ER on 12/25, patient poor historian. Patient history obtained from . She reported that patient has not been eating a full meal since the and has not been taking his medications properly. Since then he has been having worsening shortness of breath, generalized weakness and confusion. He was also noted to be very dry and looks like he had a lot of weight loss. She noted that he had a nonproductive cough, and diarrhea. There was no noted fever, chest pain, changes in urination, extremity swelling, facial asymmetry, changes in speech, changes in vision, rece nt illness, or recent travel. On admission, brain CT showed no acute intracranial process. Chest x-ray showed multifocal airspace opacities to correlate for pneumonia and to exclude pulmonary edema. Labs on admission showed WBC 25, hemoglobin 10.6, MCV 99.9, platelet count 266,000, PT 11.6, INR 1.1, PTT 28.3, sodium 128, potassium 7.7, chloride 103, bicarb 14, BUN 43, creatinine 2.3, glucose 951, lactic acid 2.5, calcium 9.2, magnesium 1.4, total bilirubin 0.7, AST 17, ALT 17, alk phos 136, ammonia less than 9, albumin 2.7. Acetone negative. Cepheid 4 negative. VBG pH 7.21, pCO2 42, bicarb 17. Patient was admitted for acute metabolic encephalopathy, HHS, hyperkalemic emergency, started on insulin drip, nephrology consulted, MISHA inhibitor on hold. He was started on azithromycin and ceftriaxone for possible community-acquired pneumonia. Insulin drip was discontinued on 12/27, patient was switched to basal bolus with Levemir 20 nightly, mealtime Humalog 8 units and sliding scale insulin, continued on IV fluids, kidney function is improving, nephrology following. TTE showed no acute abnormalities, normal EF. MRSA swab came back positive, patient was switched to vancomycin SOT 12/27, pending urine and blood cultures. Social work consulted, PT OT consulted, patient has history of medications noncompliance. Overall mental status significantly improved, patient is able to ambulate, uses bathroom, will be transferred from ICU once a bed was available 12/31 No new complaints. Will need PICC line once documented clearance of BCx, and outpt IV abx with vanco per ID. Would benefit from outpatient spine surgery evaluation once infx resolves. 01/01/2025 patient seen and examined at bedside. No new compaints. WBC 18.68, hemoglobin 9.6, MCV 93.8, platelet count 249,000, sodium 139, potassium 3.8, chloride 101, bicarb 28.4, BUN 5.6, creatinine 0.8, glucose 179, POC glucose, 209, magnesium 1.2, calcium 8.4 Review of systems: Pertinent positives and negatives as discussed in HPI, a complete review of systems was performed and all other systems are negative. Pertinent imaging and labs reviewed. Physical examination: Vital signs reviewed General: non toxic, no distress, appears at stated age, on nasal cannula Derm: no unusual rashes/lesions, warm Head: atraumatic, normocephalic, symmetric Eyes: EOMI, anicteric sclera, pupils equal round reactive to light ENT: Nose and ears atraumatic Neck: No cervical lymphadenopathy, trachea midline, supple Mouth: no lip lesion, mucus membranes moist Cardiovascular: S1S2 reg, no murmur Lungs: CTA bilateral, no rhonchi, no rales, no accessory muscle use Abdominal: soft, nontender to palpation, no guarding Ext: muscle strength 5 out of 5 in all 4 extremities grossly, no gross muscle atrophy, no contractures, positive dorsalis pedis pulse bilateral, no edema Neuro: CN II-XI grossly intact, no gross focal neuro deficits Psych: Alert and oriented x3, appropriate affect and mood Assessment/Plan: Acute metabolic encephalopathy, improving HHS, resolved Pseudohyponatremia secondary to above Nonaniongap metabolic acidosis secondary to above, resolved Lactic acidosis secondary to above -Insulin drip discontinued, patient started on basal bolus but Levemir 32 at bedtime, Humalog 12 units AC 3 times daily, sliding scale insulin -BMP daily -Cardiac telemetry -Fall precautions -Patient is noncompliant with his insulins, social work consulted, PT OT Hyperkalemic emergency secondary to HHS, resolved LATOYA secondary to volume depletion, ATN, nonoliguric -Nephrology following, holding MISHA, continue IV fluids 0.9 normal saline 50 cc per -Oral bicarb discontinued -Monitor BMP Hypomagnesemia, resolved -Follow-up magnesium level -Per nephrology, magnesium oxide 400 mg p.o. daily Acute hypoxic respiratory failure secondary to community-acquired pneumonia MRSA Bacteremia -Afebrile since 12/26 11 a.m., WBC trending down 18.68 today -Antibiotics SOT 12/25, patient was initially on Rocephin and azithromycin, Legionella negative, MRSA swab positive, started on vancomycin on 12/27 -Monitor CBC -sputum cultures-pending -ID consulted -repeat Cx still negative at this time -MR C-spine negative for epidural abscess or osteomyelitis -Per ID, PRIYA not warranted at this time. Will need to continue IV Diflucan and vancomycin on discharge for 2 weeks via PICC line Chronic Conditions: GERD Hypertension, currently hypotensive Depression History of C. difficile -Hold home labetalol 100 3 times daily, holding home lisinopril in the settings of LATOYA, holding home potassium chloride, resumed home folic acid 1 mg DVT ppx: Lovenox 40 mg SQ daily F: 0.9 normal saline 50 cc/h E: Monitor magnesium N: Consistent carbohydrate diet A: Ambulate with assistance Selene Morley MD PGY-1/[employer] Dictation was produced using [employer] dictation software. please excuse any grammatical, word or spelling errors. I have seen and evaluated the patient today. Discussed with the resident and agree with the residents finding and plan as documented in the resident's note. Changes highlighted in blue font. Order for PICC line placed. Anticipate DC in 1-2 days. Objective - Vital Signs Vital signs: Vital Signs Temp 98.3 F 01/01/25 07:37 Pulse 105 H 01/01/25 07:37 Resp 20 01/01/25 07:37 BP 138/79 01/01/25 07:37 Pulse Ox 98 01/01/25 07:37 FiO2 Intake & Output 12/31/24 01/01/25 01/01/25 18:59 06:59 18:59 Output Total 1 1 Balance -1 -1 Weight 84.5 kg 79.5 kg Output: Stool 1 1 Other: Voiding Method Bedside Commode Bedside Commode Urinal Urinal # Voids 4 5 # Bowel Movements 2 - Labs CBC & Chem 7: 01/01/25 07:04 01/01/25 07:04 Labs: Abnormal Lab Results - Last 24 Hours (Table) 12/31/24 12/31/24 12/31/24 Range/Units 02:43 11:29 16:41 Immature Gran # 0.78 H (0.00-0.04) X 10*3/uL Neutrophils # 14.15 H (1.80-7.70) X 10*3/uL Monocytes # 1.37 H (0.20-1.00) X 10*3/uL POC Glucose (mg/dL) 247 H 221 H (70-110) mg/dL 12/31/24 01/01/25 01/01/25 Range/Units 21:15 06:15 07:36 Immature Gran # (0.00-0.04) X 10*3/uL Neutrophils # (1.80-7.70) X 10*3/uL Monocytes # (0.20-1.00) X 10*3/uL POC Glucose (mg/dL) 382 H 174 H 195 H (70-110) mg/dL Microbiology - Last 24 Hours (Table) 12/28/24 10:05 Blood Culture - Preliminary Blood 12/29/24 03:56 Blood Culture - Preliminary Blood
[2025-01-01 16:45] LABS: Glucose,Whole Blood 233 mg/dL (70-110)
[2025-01-01] MEDS: MAGNESIUM SULFATE-D5W PMX 1 GM in DEXTROSE/WATER 1 100ML.BAG IVPB SCH (16:46)
[2025-01-01] MEDS: INSULIN LISPRO (HumaLOG) 100 UNIT/ML 10 mL VL SQ SCH (17:34)
[2025-01-01] MEDS: VANCOMYCIN TROUGH DUE 1 EACH MISC MISCELLANE ONE (18:06)
[2025-01-01] MEDS: VANCOMYCIN 1,500 MG in SODIUM CHLORIDE 0.9% 500 ML 500 ML IVPB SCH (18:38)
[2025-01-01 21:00] LABS: Glucose,Whole Blood 299 mg/dL (70-110)
[2025-01-01] MEDS: INSULIN GLARGINE (LANTUS) 100 UNIT/ML SYR SQ SCH (21:17)
[2025-01-02 06:16] LABS: Glucose,Whole Blood 165 mg/dL (70-110)
[2025-01-02 08:29] LABS: Basophils # (A) 0.06 X 10*3/uL (0.00-0.10); Basophils % (A) 0.3 %; Eosinophils # (A) 0.18 X 10*3/uL (0.04-0.35); HCT 29.6 % (39.6-50.0); HGB 8.9 g/dL (13.0-17.0); Lymphocytes # (A) 2.37 X 10*3/uL (0.90-5.00); MCH 27.8 pg (27.0-32.0); MCHC 30.1 g/dL (32.0-37.0); MCV 92.5 FL (80.0-97.0); Mean Platelet Volume 12.4 FL (9.5-12.2); Monocytes # (A) 1.18 X 10*3/uL (0.20-1.00); Monocytes % (A) 6.5 %; NRBC Per 100 WBC 0 X 10*3/uL (0.00-0.01); Neutrophils # (A) 13.97 X 10*3/uL (1.80-7.70); Neutrophils % (A) 76.6 %; Platelet Count 268 X 10*3/uL (140-440); RDW 16.7 % (11.5-14.5); WBC 18.24 X 10*3/uL (4.50-10.00)
[2025-01-02 08:39] LABS: BUN/Creat Ratio 8.75 Ratio (12.00-20.00); Calcium 8.5 mg/dL (8.7-10.3); Carbon Dioxide 27.8 mmol/L (21.6-31.8); Chloride 102 mmol/L (96-109); Glucose 120 mg/dL (70-110); Potassium 3.8 mmol/L (3.5-5.5); Sodium 139 mmol/L (135-145)
[2025-01-02 09:34] LABS: Magnesium 1.8 mg/dL (1.5-2.4)
--- NOTE | 2025-01-02 10:05 | P.PN ---
Subjective Patient is seen in follow-up for acute kidney injury. GFR at baseline. Tolerating oral intake. Admits to good urine output. No active complaints. Vital signs are stable. General: No acute distress. HEENT: Head exam is unremarkable. On nasal cannula. LUNGS: No audible rhonchi or wheezes. HEART: Rate and Rhythm are regular. ABDOMEN: Nontender. EXTREMITITES: No edema. Objective - Vital Signs Vital signs: Vital Signs Temp 97.5 F L 01/02/25 07:12 Pulse 98 01/02/25 07:12 Resp 18 01/02/25 07:12 BP 163/94 01/02/25 07:12 Pulse Ox 100 01/02/25 07:12 FiO2 Intake & Output 01/01/25 01/02/25 01/02/25 18:59 06:59 18:59 Intake Total 700 Output Total 250 3251 Balance 450 -3251 Weight 81 kg Intake: Intake, IV Titration 700 Amount Sodium Chloride 0.9% 1, 200 000 ml @ 50 mls/hr IV . Q20H ANA MARÍA Rx#:[id number] Vancomycin 1,500 mg In 500 Sodium Chloride 0.9% 500 ml 500 ml @ 167 mls/hr IVPB Q12H ANA MARÍA Rx#: [id number] Output: Urine 250 3250 Stool 1 Other: Voiding Method Bedside Commode Urinal # Voids 2 # Bowel Movements 1 - Labs CBC & Chem 7: 01/02/25 02:58 01/02/25 02:58 Labs: Abnormal Lab Results - Last 24 Hours (Table) 01/01/25 01/01/25 01/01/25 Range/Units 07:04 07:04 11:40 WBC 18.68 H (4.50-10.00) X 10*3/uL RBC 3.52 L (4.40-5.60) X 10*6/uL Hgb 9.6 L (13.0-17.0) g/dL Hct 33.0 L (39.6-50.0) % MCHC 29.1 L (32.0-37.0) g/dL RDW 17.0 H (11.5-14.5) % MPV 12.3 H (9.5-12.2) FL Immature Gran # 0.62 H (0.00-0.04) X 10*3/uL Neutrophils # 14.23 H (1.80-7.70) X 10*3/uL Monocytes # 1.27 H (0.20-1.00) X 10*3/uL Basophils # 0.15 H (0.00-0.10) X 10*3/uL NRBC/100 WBC Diff 0.03 H (0.00-0.01) X 10*3/uL BUN 5.6 L (9.0-27.0) mg/dL BUN/Creatinine Ratio 7.00 L (12.00-20.00) Ratio Glucose 179 H (70-110) mg/dL POC Glucose (mg/dL) 209 H (70-110) mg/dL Calcium 8.4 L (8.7-10.3) mg/dL Magnesium 1.2 L (1.5-2.4) mg/dL 01/01/25 01/01/25 01/01/25 Range/Units 14:18 16:43 20:59 WBC (4.50-10.00) X 10*3/uL RBC (4.40-5.60) X 10*6/uL Hgb (13.0-17.0) g/dL Hct (39.6-50.0) % MCHC (32.0-37.0) g/dL RDW (11.5-14.5) % MPV (9.5-12.2) FL Immature Gran # (0.00-0.04) X 10*3/uL Neutrophils # (1.80-7.70) X 10*3/uL Monocytes # (0.20-1.00) X 10*3/uL Basophils # (0.00-0.10) X 10*3/uL NRBC/100 WBC Diff (0.00-0.01) X 10*3/uL BUN (9.0-27.0) mg/dL BUN/Creatinine Ratio (12.00-20.00) Ratio Glucose (70-110) mg/dL POC Glucose (mg/dL) 233 H 299 H (70-110) mg/dL Calcium (8.7-10.3) mg/dL Magnesium 1.2 L (1.5-2.4) mg/dL 01/02/25 01/02/25 01/02/25 Range/Units 02:58 02:58 06:14 WBC 18.24 H (4.50-10.00) X 10*3/uL RBC 3.20 L (4.40-5.60) X 10*6/uL Hgb 8.9 L (13.0-17.0) g/dL Hct 29.6 L (39.6-50.0) % MCHC 30.1 L (32.0-37.0) g/dL RDW 16.7 H (11.5-14.5) % MPV 12.4 H (9.5-12.2) FL Immature Gran # 0.48 H (0.00-0.04) X 10*3/uL Neutrophils # 13.97 H (1.80-7.70) X 10*3/uL Monocytes # 1.18 H (0.20-1.00) X 10*3/uL Basophils # (0.00-0.10) X 10*3/uL NRBC/100 WBC Diff (0.00-0.01) X 10*3/uL BUN 7.0 L (9.0-27.0) mg/dL BUN/Creatinine Ratio 8.75 L (12.00-20.00) Ratio Glucose 120 H (70-110) mg/dL POC Glucose (mg/dL) 165 H (70-110) mg/dL Calcium 8.5 L (8.7-10.3) mg/dL Magnesium (1.5-2.4) mg/dL Microbiology - Last 24 Hours (Table) 12/29/24 03:56 Blood Culture - Preliminary Blood Assessment and Plan Plan: Assessment: 1. Acute kidney injury secondary to vasomotor nephropathy secondary to hypovo lemia and hypotension. Resolved. 2. Metabolic encephalopathy secondary to HHNK. Improved. 3. Hypertonic hyponatremia secondary to hyperglycemia. Resolved. 4. Diabetes mellitus. 5. Metabolic acidosis secondary to acute kidney injury and HHNK. Resolved. 6. Hypomagnesemia from poor intake. On oral magnesium oxide. Stable. Plan: Encouraged oral intake. Replace electrolytes as needed. Cleared for PICC line placement in the dominant arm.
[2025-01-02 11:31] LABS: Glucose,Whole Blood 281 mg/dL (70-110)
[2025-01-02] MEDS: lisinopriL 5 MG TAB PO SCH (12:46)
--- NOTE | 2025-01-02 16:09 | P.PN ---
Subjective Progress Note Date: 01/02/25 Principal diagnosis: Reason for follow-up is MRSA bacteremia pneumonia Patient is a 69-year-old -[place] male with a past medical history difficult for diabetes mellitus reflux hypertension pneumonia presenting to the hospital for evaluation of confusion and lethargy patient has been diagnosed with pneumonia blood cultures came back positive with MRSA prompted this con sultation. On today's evaluation that is 01/02/2025,the patient denies any fever or any chills, patient is breathing comfortably on 4 L current oxygen, the patient denies chest pain shortness of breath did have a cough but denies any worsening cough, patient denies abdominal pain, no nausea vomiting or diarrhea. Patient white count is still elevated 18.24, creatinine 0.8 blood culture repeat has been negative Objective - Vital Signs Vital signs: Vital Signs Temp 97.5 F L 01/02/25 07:12 Pulse 98 01/02/25 07:12 Resp 18 01/02/25 07:12 BP 163/94 01/02/25 07:12 Pulse Ox 100 01/02/25 07:12 FiO2 Intake & Output 01/01/25 01/02/25 01/02/25 18:59 06:59 18:59 Intake Total 700 Output Total 250 3251 Balance 450 -3251 Weight 81 kg Intake: Intake, IV Titration 700 Amount Sodium Chloride 0.9% 1, 200 000 ml @ 50 mls/hr IV . Q20H ANA MARÍA Rx#:[id number] Vancomycin 1,500 mg In 500 Sodium Chloride 0.9% 500 ml 500 ml @ 167 mls/hr IVPB Q12H ANA MARÍA Rx#: [id number] Output: Urine 250 3250 Stool 1 Other: Voiding Method Bedside Commode Urinal # Voids 2 # Bowel Movements 1 - Exam GENERAL DESCRIPTION: An elderly male lying in bed in no distress RESPIRATORY SYSTEM: Unlabored breathing , decreased breath sounds at bases HEART: S1 S2 regular rate and rhythm , ABDOMEN: Soft , no tenderness EXTREMITIES: No edema feet - Labs CBC & Chem 7: 01/02/25 02:58 01/02/25 02:58 Labs: Abnormal Lab Results - Last 24 Hours (Table) 01/01/25 01/01/25 01/01/25 Range/Units 07:04 07:04 11:40 WBC 18.68 H (4.50-10.00) X 10*3/uL RBC 3.52 L (4.40-5.60) X 10*6/uL Hgb 9.6 L (13.0-17.0) g/dL Hct 33.0 L (39.6-50.0) % MCHC 29.1 L (32.0-37.0) g/dL RDW 17.0 H (11.5-14.5) % MPV 12.3 H (9.5-12.2) FL Immature Gran # 0.62 H (0.00-0.04) X 10*3/uL Neutrophils # 14.23 H (1.80-7.70) X 10*3/uL Monocytes # 1.27 H (0.20-1.00) X 10*3/uL Basophils # 0.15 H (0.00-0.10) X 10*3/uL NRBC/100 WBC Diff 0.03 H (0.00-0.01) X 10*3/uL BUN 5.6 L (9.0-27.0) mg/dL BUN/Creatinine Ratio 7.00 L (12.00-20.00) Ratio Glucose 179 H (70-110) mg/dL POC Glucose (mg/dL) 209 H (70-110) mg/dL Calcium 8.4 L (8.7-10.3) mg/dL Magnesium 1.2 L (1.5-2.4) mg/dL 01/01/25 01/01/25 01/01/25 Range/Units 14:18 16:43 20:59 WBC (4.50-10.00) X 10*3/uL RBC (4.40-5.60) X 10*6/uL Hgb (13.0-17.0) g/dL Hct (39.6-50.0) % MCHC (32.0-37.0) g/dL RDW (11.5-14.5) % MPV (9.5-12.2) FL Immature Gran # (0.00-0.04) X 10*3/uL Neutrophils # (1.80-7.70) X 10*3/uL Monocytes # (0.20-1.00) X 10*3/uL Basophils # (0.00-0.10) X 10*3/uL NRBC/100 WBC Diff (0.00-0.01) X 10*3/uL BUN (9.0-27.0) mg/dL BUN/Creatinine Ratio (12.00-20.00) Ratio Glucose (70-110) mg/dL POC Glucose (mg/dL) 233 H 299 H (70-110) mg/dL Calcium (8.7-10.3) mg/dL Magnesium 1.2 L (1.5-2.4) mg/dL 01/02/25 01/02/25 Range/Units 02:58 06:14 WBC 18.24 H (4.50-10.00) X 10*3/uL RBC 3.20 L (4.40-5.60) X 10*6/uL Hgb 8.9 L (13.0-17.0) g/dL Hct 29.6 L (39.6-50.0) % MCHC 30.1 L (32.0-37.0) g/dL RDW 16.7 H (11.5-14.5) % MPV 12.4 H (9.5-12.2) FL Immature Gran # 0.48 H (0.00-0.04) X 10*3/uL Neutrophils # 13.97 H (1.80-7.70) X 10*3/uL Monocytes # 1.18 H (0.20-1.00) X 10*3/uL Basophils # (0.00-0.10) X 10*3/uL NRBC/100 WBC Diff (0.00-0.01) X 10*3/uL BUN (9.0-27.0) mg/dL BUN/Creatinine Ratio (12.00-20.00) Ratio Glucose (70-110) mg/dL POC Glucose (mg/dL) 165 H (70-110) mg/dL Calcium (8.7-10.3) mg/dL Magnesium (1.5-2.4) mg/dL Microbiology - Last 24 Hours (Table) 12/29/24 03:56 Blood Culture - Preliminary Blood Assessment and Plan (1) MRSA bacteremia Current Visit: Yes Status: Acute Code(s): R78.81 - BACTEREMIA; B95.62 - METHICILLIN RESIS STAPH INFCT [facility] Code(s): 08354507598087175 (2) Pneumonia Current Visit: Yes Status: Acute Code(s): J18.9 - PNEUMONIA, UNSPECIFIED ORGANISM SNOMED Code(s): 807346056 (3) Sepsis Current Visit: Yes Status: Acute Code(s): A41.9 - SEPSIS, UNSPECIFIED ORGANISM SNOMED Code(s): 35657590 Plan: 1patient presented hospital with sepsis in this patient who did have fever tachycardia elevated white count meeting currently for SIRS source likely pneumonia now with evidence of MRSA bacteremia. 2patient with MRSA bacteremia source is likely pneumonia. 3blood culture has been repeated, which are negative so far. 4patient did have extensive workup including CT angiogram of the chest that was negative for PE did not show any empyema MRI of the cervical spine did not show any evidence of epidural abscess or discitis, patient did have a echocardiogram did show normal cardiac valve with only 1 positive blood culture clinical and behaving as endocarditis, however elevated white count still of concern patient also have a MRSA advised on the did not show any epidural abscess or discitis CT angiogram of the chest did not mention abnormality to the thoracic spine will benefit from an MRI of the lumbar spine this has been discussed detail with the admitting team continue with the vancomycin Dictation was produced using [employer] dictation software. please excuse any grammatical, word or spelling errors. Time with Patient: Less than 30
[2025-01-02 16:13] LABS: Glucose,Whole Blood 266 mg/dL (70-110)
--- NOTE | 2025-01-02 16:51 | P.PN ---
Subjective Progress Note Date: 01/02/25 Hospital Course: Is a 69-year-old male with past medical history of DM, HHS admissions, recurrent UTIs, history of substance use, history of carotid artery stenosis, COPD, interstitial lung disease, chronic thrombocytopenia secondary to alcoholism, C. difficile colitis November 2024, esophageal varices. Presented to the ER on 12/25, patient poor historian. Patient history obtained from . She reported that patient has not been eating a full meal since the and has not been taking his medications properly. Since then he has been having worsening shortness of breath, generalized weakness and confusion. He was also noted to be very dry and looks like he had a lot of weight loss. She noted that he had a nonproductive cough, and diarrhea. There was no noted fever, chest pain, changes in urination, extremity swelling, facial asymmetry, changes in speech, changes in vision, recent illness, or recent travel. On admission, brain CT showed no acute intracranial process. Chest x-ray showed multifocal airspace opacities to correlate for pneumonia and to exclude pulmonary edema. Labs on admission showed WBC 25, hemoglobin 10.6, MCV 99.9, platelet count 266,000, PT 11.6, INR 1.1, PTT 28.3, sodium 128, potassium 7.7, chloride 103, bicarb 14, BUN 43, creatinine 2.3, glucose 951, lactic acid 2.5, calcium 9.2, magnesium 1.4, total bilirubin 0.7, AST 17, ALT 17, alk phos 136, ammonia less than 9, albumin 2.7. Acetone negative. Cepheid 4 negative. VBG pH 7.21, pCO2 42, bicarb 17. Patient was admitted for acute metabolic encephalopathy, HHS, hyperkalemic emerg ency, started on insulin drip, nephrology consulted, MISHA inhibitor on hold. He was started on azithromycin and ceftriaxone for possible community-acquired pneumonia. Insulin drip was discontinued on 12/27, patient was switched to basal bolus with Levemir 20 nightly, mealtime Humalog 8 units and sliding scale insulin, continued on IV fluids, kidney function is improving, nephrology following. TTE showed no acute abnormalities, normal EF. MRSA swab came back positive, patient was switched to vancomycin SOT 12/27, pending urine and blood cultures. Social work consulted, PT OT consulted, patient has history of medications noncompliance. Overall mental status significantly improved, patient is able to ambulate, uses bathroom, will be transferred from ICU once a bed was available 12/31 No new complaints. Will need PICC line once documented clearance of BCx, and outpt IV abx with vanco per ID. Would benefit from outpatient spine surgery evaluation once infx resolves. 01/01/2025 patient seen and examined at bedside. No new compaints. WBC 18.68, hemoglobin 9.6, MCV 93.8, platelet count 249,000, sodium 139, potassium 3.8, chloride 101, bicarb 28.4, BUN 5.6, creatinine 0.8, glucose 179, POC glucose, 209, magnesium 1.2, calcium 8.4 01/02/25 patient seen and examined at bedside. No new complaints. No acute events overnight. Labs today show WBC 18.24, hemoglobin 8.9, MCV 92.5, platelet count 2 68,000, sodium 139, potassium 3.8, chloride 102, bicarb 27.8, BUN 7, creatinine 0.8, glucose 120, calcium 8.5, magnesium 1.8 Review of systems: Pertinent positives and negatives as discussed in HPI, a complete review of systems was performed and all other systems are negative. Pertinent imaging and labs reviewed. Physical examination: Vital signs reviewed General: non toxic, no distress, appears at stated age, on nasal cannula Derm: no unusual rashes/lesions, warm Head: atraumatic, normocephalic, symmetric Eyes: EOMI, anicteric sclera, pupils equal round reactive to light ENT: Nose and ears atraumatic Neck: No cervical lymphadenopathy, trachea midline, supple Mouth: no lip lesion, mucus membranes moist Cardiovascular: S1S2 reg, no murmur Lungs: CTA bilateral, no rhonchi, no rales, no accessory muscle use Abdominal: soft, nontender to palpation, no guarding Ext: muscle strength 5 out of 5 in all 4 extremities grossly, no gross muscle atrophy, no contractures, positive dorsalis pedis pulse bilateral, no edema Neuro: CN II-XI grossly intact, no gross focal neuro deficits Psych: Alert and oriented x3, appropriate affect and mood Assessment/Plan: 69-year-old male with history of diabetes and multiple hospitalizations for DKA and HHS and recurrent UTIs here for further management of acute metabolic encephalopathy due to HHS. Found to have MRSA bacteremia on labs. #. Acute hypoxic respiratory failure secondary to community-acquired pneumonia #. MRSA Bacteremia -Afebrile since 12/26 11 a.m., WBC trending down 18.68 today -Antibiotics SOT 12/25, patient was initially on Rocephin and azithromycin, Legio elder negative, MRSA swab positive, started on vancomycin on 12/27, monitor for renal toxicity -Monitor CBC -sputum cultures-pending -ID consulted -repeat blood cultures still negative at this time -MR C-spine negative for epidural abscess or osteomyelitis -Discussed with ID, PRIYA not warranted at this time. Advised patient may benefit from lumbar spine MRI. Will need to continue IV antibiotics and antifungal on discharge for 2 weeks via PICC line. PICC line placement tomorrow #. Acute metabolic encephalopathy, improved #. HHS, resolved #. Pseudohyponatremia secondary to above #. Nonaniongap metabolic acidosis secondary to above, resolved #. Lactic acidosis secondary to above, resolved -Insulin drip discontinued, patient started on basal bolus Levemir 32 at bedtime, Humalog 12 units AC 3 times daily, sliding scale insulin -BMP daily -Cardiac telemetry -Fall precautions -Patient is noncompliant with his insulins -social work consulted. Patient will be discharged with home care -PT OT consulted #. LATOYA secondary to volume depletion, ATN, nonoliguric, resolved -Resumed MISHA inhibitor -Nephrology following -IV fluids discontinued -Oral bicarb discontinued -Monitor BMP #. Normocytic anemia, likely from chronic disease -Hemoglobin 8.9. Patient is symptomatic at this time -Monitor CBC. Consider transfusion if hemoglobin less than 7 #. Hypomagnesemia, resolved -Per nephrology, magnesium oxide 400 mg p.o. daily #. Hyperkalemic emergency secondary to HHS, resolved Chronic Conditions: GERD Hypertension, currently hypotensive Depression History of C. difficile -Hold home labetalol 100 3 times daily, holding home lisinopril in the settings of LATOYA, holding home potassium chloride, resumed home folic acid 1 mg DVT ppx: Lovenox 40 mg SQ daily F: oral intake E: none for now N: Consistent carbohydrate diet A: Ambulate with assistance Selene Morley MD PGY-1/Television Reporter Dictation was produced using [employer] dictation software. please excuse any grammatical, word or spelling errors. I have seen and evaluated the patient today. Discussed with the resident and agree with the residents finding and plan as documented in the resident's note. Changes highlighted in blue font. Objective - Vital Signs Vital signs: Vital Signs Temp 97.5 F L 01/02/25 07:12 Pulse 98 01/02/25 07:12 Resp 18 01/02/25 07:12 BP 163/94 01/02/25 07:12 Pulse Ox 100 01/02/25 07:12 FiO2 Intake & Output 01/01/25 01/02/25 01/02/25 18:59 06:59 18:59 Intake Total 700 Output Total 250 3251 Balance 450 -3251 Weight 81 kg Intake: Intake, IV Titration 700 Amount Sodium Chloride 0.9% 1, 200 000 ml @ 50 mls/hr IV . Q20H ANA MARÍA Rx#:[id number] Vancomycin 1,500 mg In 500 Sodium Chloride 0.9% 500 ml 500 ml @ 167 mls/hr IVPB Q12H ANA MARÍA Rx#: [id number] Output: Urine 250 3250 Stool 1 Other: Voiding Method Bedside Commode Urinal # Voids 2 # Bowel Movements 1 - Labs CBC & Chem 7: 01/02/25 02:58 01/02/25 02:58 Labs: Abnormal Lab Results - Last 24 Hours (Table) 01/01/25 01/01/25 01/01/25 Range/Units 07:04 07:04 11:40 WBC 18.68 H (4.50-10.00) X 10*3/uL RBC 3.52 L (4.40-5.60) X 10*6/uL Hgb 9.6 L (13.0-17.0) g/dL Hct 33.0 L (39.6-50.0) % MCHC 29.1 L (32.0-37.0) g/dL RDW 17.0 H (11.5-14.5) % MPV 12.3 H (9.5-12.2) FL Immature Gran # 0.62 H (0.00-0.04) X 10*3/uL Neutrophils # 14.23 H (1.80-7.70) X 10*3/uL Monocytes # 1.27 H (0.20-1.00) X 10*3/uL Basophils # 0.15 H (0.00-0.10) X 10*3/uL NRBC/100 WBC Diff 0.03 H (0.00-0.01) X 10*3/uL BUN 5.6 L (9.0-27.0) mg/dL BUN/Creatinine Ratio 7.00 L (12.00-20.00) Ratio Glucose 179 H (70-110) mg/dL POC Glucose (mg/dL) 209 H (70-110) mg/dL Calcium 8.4 L (8.7-10.3) mg/dL Magnesium 1.2 L (1.5-2.4) mg/dL 01/01/25 01/01/25 01/01/25 Range/Units 14:18 16:43 20:59 WBC (4.50-10.00) X 10*3/uL RBC (4.40-5.60) X 10*6/uL Hgb (13.0-17.0) g/dL Hct (39.6-50.0) % MCHC (32.0-37.0) g/dL RDW (11.5-14.5) % MPV (9.5-12.2) FL Immature Gran # (0.00-0.04) X 10*3/uL Neutrophils # (1.80-7.70) X 10*3/uL Monocytes # (0.20-1.00) X 10*3/uL Basophils # (0.00-0.10) X 10*3/uL NRBC/100 WBC Diff (0.00-0.01) X 10*3/uL BUN (9.0-27.0) mg/dL BUN/Creatinine Ratio (12.00-20.00) Ratio Glucose (70-110) mg/dL POC Glucose (mg/dL) 233 H 299 H (70-110) mg/dL Calcium (8.7-10.3) mg/dL Magnesium 1.2 L (1.5-2.4) mg/dL 01/02/25 Range/Units 06:14 WBC (4.50-10.00) X 10*3/uL RBC (4.40-5.60) X 10*6/uL Hgb (13.0-17.0) g/dL Hct (39.6-50.0) % MCHC (32.0-37.0) g/dL RDW (11.5-14.5) % MPV (9.5-12.2) FL Immature Gran # (0.00-0.04) X 10*3/uL Neutrophils # (1.80-7.70) X 10*3/uL Monocytes # (0.20-1.00) X 10*3/uL Basophils # (0.00-0.10) X 10*3/uL NRBC/100 WBC Diff (0.00-0.01) X 10*3/uL BUN (9.0-27.0) mg/dL BUN/Creatinine Ratio (12.00-20.00) Ratio Glucose (70-110) mg/dL POC Glucose (mg/dL) 165 H (70-110) mg/dL Calcium (8.7-10.3) mg/dL Magnesium (1.5-2.4) mg/dL Microbiology - Last 24 Hours (Table) 12/29/24 03:56 Blood Culture - Preliminary Blood
[2025-01-02 20:52] LABS: Glucose,Whole Blood 112 mg/dL (70-110)
[2025-01-03 04:17] LABS: Anisocytosis Slight; Basophils # (A) 0.1 k/uL (0-0.2); Basophils % (A) 0 %; Eosinophils # (A) 0.1 k/uL (0-0.7); Eosinophils % (A) 1 %; Hypochromasia Marked; Lymphocytes # (A) 2.1 k/uL (1.0-4.8); Lymphocytes % (A) 12 %; MCH 27.7 pg (25.0-35.0); MCHC 29.5 g/dL (31.0-37.0); Mean Platelet Volume 8.5; Monocytes # (A) 0.7 k/uL (0-1.0); Monocytes % (A) 4 %; Neutrophils # (A) 13.7 k/uL (1.3-7.7); Neutrophils % (A) 81 %; Platelet Count 254 k/uL (150-450); Poikilocytosis Slight; RBC 2.97 m/uL (4.30-5.90)
[2025-01-03 04:21] LABS: HGB 8.2 gm/dL (13.0-17.5)
[2025-01-03 04:36] LABS: African American GFR (CKD) >90 (>60 ml/min/1.73 sqM); Anion Gap 3 mmol/L; Blood Urea Nitrogen 6 mg/dL (9-20); Calcium 8.7 mg/dL (8.4-10.2); Carbon Dioxide 36 mmol/L (22-30); Chloride 100 mmol/L (98-107); Glucose 62 mg/dL (74-99); Non-African American GFR(CKD) >90 (>60 ml/min/1.73 sqM); Potassium 3.6 mmol/L (3.5-5.1); Sodium 139 mmol/L (137-145)
[2025-01-03 04:51] LABS: Glucose,Whole Blood 67 mg/dL (70-110)
[2025-01-03 05:17] LABS: Glucose,Whole Blood 67 mg/dL (70-110)
[2025-01-03 06:09] LABS: Glucose,Whole Blood 157 mg/dL (70-110)
[2025-01-03] MEDS: PANTOPRAZOLE 40 MG TABLET PO SCH (06:25)
[2025-01-03 12:09] LABS: Glucose,Whole Blood 119 mg/dL (70-110)
--- NOTE | 2025-01-03 12:10 | MR ---
EXAMINATION TYPE: MR lumbar spine wo/w con DATE OF EXAM: 01/03/2025 COMPARISON: Prior MRI lumbar spine March 19, 2014 HISTORY: Back and neck pain TECHNIQUE: Multiplanar, multisequence images of the lumbar spine is performed without and with IV contrast, util izing 7.5ml mL intravenous Gadobutrol FINDINGS: Sagittal images of the lumbar spine show vertebral body heights and alignment to remain sat isfactory. Multilevel disc desiccation L3-L4 through the L5-S1 levels on current study. There is mild disc space narrowing at L3-L4 level. There is mild/moderate disc space narrowing at L4-L5 level. The re is moderate to severe disc space narrowing with heterogeneous Modic type II endplate changes at th e L5-S1 level . The conus medullaris remains normal in position and signal ending mid L1 level. The bone marrow signal intensity is within normal limits. No suspicious postcontrast enhancement is seen. Axial images show T12-L1 through the L2-L3 levels to appear within normal limits. Axial images at the L3-L4 level show [id number] broad disc bulge with broad-based left paracent ral disc protrusion effacing the anterior thecal sac along with mild facet arthropathy bilaterally. T here is mild right and moderate left-sided neural foraminal narrowing seen. Axial images at L4-L5 level moderate to severe broad-based disc bulge and moderate facet arthropathy and ligamentum flavum hypertrophy. There is effacement of the anterior thecal sac. There is moderate to severe right and mild/moderate left-sided neural foraminal narrowing seen. Axial images at the L5-S1 level show moderate facet arthropathy bilaterally. There is moderate broad disc bulge with tiny central disc protrusion seen. Spinal canal is grossly preserved. There is modera te to severe bilateral neural foraminal narrowing at this level identified. IMPRESSION: Multilevel degenerative changes in the mid to lower lumbar spine as detailed above. No rod spicious enhancement is seen. [facility], , 01/03/2025 12:07 PM
--- NOTE | 2025-01-03 15:57 | P.PN ---
Subjective Progress Note Date: 01/03/25 Hospital Course: Is a 69-year-old male with past medical history of DM, HHS admissions, recurrent UTIs, history of substance use, history of carotid artery stenosis, COPD, interstitial lung disease, chronic thrombocytopenia secondary to alcoholism, C. difficile colitis November 2024, esophageal varices. Presented to the ER on 12/25, patient poor historian. Patient history obtained from . She reported that patient has not been eating a full meal since the and has not been taking his medications properly. Since then he has been having worsening shortness of breath, generalized weakness and confusion. He was also noted to be very dry and looks like he had a lot of weight loss. She noted that he had a nonproductive cough, and diarrhea. There was no noted fever, chest pain, changes in urination, extremity swelling, facial asymmetry, changes in speech, changes in vision, recent illness, or recent travel. On admission, brain CT showed no acute intracranial process. Chest x-ray showed multifocal airspace opacities to correlate for pneumonia and to exclude pulmonary edema. Labs on admission showed WBC 25, hemoglobin 10.6, MCV 99.9, platelet count 266,000, PT 11.6, INR 1.1, PTT 28.3, sodium 128, potassium 7.7, chloride 103, bicarb 14, BUN 43, creatinine 2.3, glucose 951, lactic acid 2.5, calcium 9.2, magnesium 1.4, total bilirubin 0.7, AST 17, ALT 17, alk phos 136, ammonia less than 9, albumin 2.7. Acetone negative. Cepheid 4 negative. VBG pH 7.21, pCO2 42, bicarb 17. Patient was admitted for acute metabolic encephalopathy, HHS, hyperkalemic emerg ency, started on insulin drip, nephrology consulted, MISHA inhibitor on hold. He was started on azithromycin and ceftriaxone for possible community-acquired pneumonia. Insulin drip was discontinued on 12/27, patient was switched to basal bolus with Levemir 20 nightly, mealtime Humalog 8 units and sliding scale insulin, continued on IV fluids, kidney function is improving, nephrology following. TTE showed no acute abnormalities, normal EF. MRSA swab came back positive, patient was switched to vancomycin SOT 12/27, pending urine and blood cultures. Social work consulted, PT OT consulted, patient has history of medications noncompliance. Overall mental status significantly improved, patient is able to ambulate, uses bathroom, will be transferred from ICU once a bed was available 12/31 No new complaints. Will need PICC line once documented clearance of BCx, and outpt IV abx with vanco per ID. Would benefit from outpatient spine surgery evaluation once infx resolves. 01/01/2025 patient seen and examined at bedside. No new compaints. WBC 18.68, hemoglobin 9.6, MCV 93.8, platelet count 249,000, sodium 139, potassium 3.8, chloride 101, bicarb 28.4, BUN 5.6, creatinine 0.8, glucose 179, POC glucose, 209, magnesium 1.2, calcium 8.4 01/02/25 patient seen and examined at bedside. No new complaints. No acute events overnight. Labs today show WBC 18.24, hemoglobin 8.9, MCV 92.5, platelet count 2 68,000, sodium 139, potassium 3.8, chloride 102, bicarb 27.8, BUN 7, creatinine 0.8, glucose 120, calcium 8.5, magnesium 1.8 01/03/2025 patient seen and examined at bedside. No acute events overnight. No new complaints. Still on 4 L nasal cannula. Labs today show WBC 17, hemoglobin 8.2, MCV 94, platelet count 254,000, sodium 139, potassium 3.6, chloride 100, bicarb 36, BUN 6, creatinine 0.7, glucose 62, calcium 8.7 Review of systems: Pertinent positives and negatives as discussed in HPI, a complete review of systems was performed and all other systems are negative. Pertinent imaging and labs reviewed. Physical examination: Vital signs reviewed General: non toxic, no distress, appears at stated age, on nasal cannula Derm: no unusual rashes/lesions, warm Head: atraumatic, normocephalic, symmetric Eyes: EOMI, anicteric sclera, pupils equal round reactive to light ENT: Nose and ears atraumatic Neck: No cervical lymphadenopathy, trachea midline, supple Mouth: no lip lesion, mucus membranes moist Cardiovascular: S1S2 reg, no murmur Lungs: CTA bilateral, no rhonchi, no rales, no accessory muscle use Abdominal: soft, nontender to palpation, no guarding Ext: muscle strength 5 out of 5 in all 4 extremities grossly, no gross muscle atrophy, no contractures, positive dorsalis pedis pulse bilateral, no edema Neuro: CN II-XI grossly intact, no gross focal neuro deficits Psych: Alert and oriented x3, appropriate affect and mood Assessment/Plan: 69-year-old male with history of diabetes and multiple hospitalizations for DKA and HHS and recurrent UTIs here for further management of acute metabolic encephalopathy due to HHS. Found to have MRSA bacteremia on labs. #. Acute hypoxic respiratory failure secondary to community-acquired pneumonia #. MRSA Bacteremia -Afebrile since 12/26 11 a.m., WBC trending down 18.68 -> 17 -Antibiotics SOT 12/25, patient was initially on Rocephin and azithromycin, Legionella negative, MRSA swab positive, started on vancomycin on 12/27, monitor for renal toxicity -Monitor CBC -ID consulted -Repeat blood cultures still negative at this time -MR C-spine negative for epidural abscess or osteomyelitis -Per ID, PRIYA not warranted at this time. Advised patient may benefit from lumbar spine MRI. Will need to continue IV antibiotics and antifungal on discharge for 2 weeks via PICC line. PICC line placement tomorrow #. Acute metabolic encephalopathy, improved #. HHS, resolved #. Pseudohyponatremia secondary to above #. Nonaniongap metabolic acidosis secondary to above, resolved #. Lactic acidosis secondary to above, resolved -Insulin drip discontinued, patient started on basal bolus Levemir 32 at bedtime, Humalog 12 units AC 3 times daily, sliding scale insulin -BMP daily -Cardiac telemetry -Fall precautions -Patient is noncompliant with his insulins -Social work consulted. Patient will be discharged with home care -PT OT consulted. recommended home or home care #. LATOYA secondary to volume depletion, ATN, nonoliguric, resolved -Resumed MISHA inhibitor -Nephrology following -IV fluids discontinued -Oral bicarb discontinued -Monitor BMP #. Normocytic anemia, likely from chronic disease -Hemoglobin 8.2. Patient is asymptomatic at this time -Monitor CBC. Consider transfusion if hemoglobin less than 7 #. Hypomagnesemia, resolved -Per nephrology, magnesium oxide 400 mg p.o. daily #. Hyperkalemic emergency secondary to HHS, resolved Chronic Conditions: GERD Hypertension,-restarted lisinopril 5 daily, labetalol 100 twice daily Depression History of C. difficile - holding home potassium chloride, resumed home folic acid 1 mg DVT ppx: Lovenox 40 mg SQ daily F: oral intake E: none for now N: Consistent carbohydrate diet A: Ambulate with assistance Selene Morley MD PGY-1/[employer] Maker Dictation was produced using [employer] dictation software. please excuse any grammatical, word or spelling errors. I have seen and evaluated the patient today. Discussed with the resident and a gree with the residents finding and plan as documented in the resident's note. Changes highlighted in blue font. Objective - Vital Signs Vital signs: Vital Signs Temp 97.3 F L 01/03/25 01:42 Pulse 98 01/03/25 01:42 Resp 19 01/03/25 01:42 BP 148/78 01/03/25 03:11 Pulse Ox 98 01/03/25 01:42 FiO2 Intake & Output 01/02/25 01/02/25 01/03/25 06:59 18:59 06:59 Output Total 3251 250 900 Balance -3251 -250 -900 Weight 81 kg 83 kg Output: Urine 3250 250 900 Stool 1 Other: Voiding Method Bedside Commode Bedside Commode Urinal Urinal # Voids 2 3 4 # Bowel Movements 1 2 1 - Labs CBC & Chem 7: 01/03/25 03:42 01/03/25 03:42 Labs: Abnormal Lab Results - Last 24 Hours (Table) 01/02/25 01/02/25 01/02/25 Range/Units 02:58 02:58 11:30 WBC 18.24 H (4.50-10.00) X 10*3/uL RBC 3.20 L (4.40-5.60) X 10*6/uL Hgb 8.9 L (13.0-17.0) g/dL Hct 29.6 L (39.6-50.0) % MCHC 30.1 L (32.0-37.0) g/dL RDW 16.7 H (11.5-14.5) % MPV 12.4 H (9.5-12.2) FL Immature Gran # 0.48 H (0.00-0.04) X 10*3/uL Neutrophils # 13.97 H (1.80-7.70) X 10*3/uL Monocytes # 1.18 H (0.20-1.00) X 10*3/uL Carbon Dioxide (22-30) mmol/L BUN 7.0 L (9.0-27.0) mg/dL BUN/Creatinine Ratio 8.75 L (12.00-20.00) Ratio Glucose 120 H (70-110) mg/dL POC Glucose (mg/dL) 281 H (70-110) mg/dL Calcium 8.5 L (8.7-10.3) mg/dL 01/02/25 01/02/25 01/03/25 Range/Units 16:11 20:51 03:42 WBC 17.0 H (4.50-10.00) X 10*3/uL RBC 2.97 L (4.40-5.60) X 10*6/uL Hgb 8.2 L D (13.0-17.0) g/dL Hct 28.0 L (39.6-50.0) % MCHC 29.5 L (32.0-37.0) g/dL RDW 17.0 H (11.5-14.5) % MPV (9.5-12.2) FL Immature Gran # (0.00-0.04) X 10*3/uL Neutrophils # 13.7 H (1.80-7.70) X 10*3/uL Monocytes # (0.20-1.00) X 10*3/uL Carbon Dioxide (22-30) mmol/L BUN (9.0-27.0) mg/dL BUN/Creatinine Ratio (12.00-20.00) Ratio Glucose (70-110) mg/dL POC Glucose (mg/dL) 266 H 112 H (70-110) mg/dL Calcium (8.7-10.3) mg/dL 01/03/25 01/03/25 01/03/25 Range/Units 03:42 04:50 05:15 WBC (4.50-10.00) X 10*3/uL RBC (4.40-5.60) X 10*6/uL Hgb (13.0-17.0) g/dL Hct (39.6-50.0) % MCHC (32.0-37.0) g/dL RDW (11.5-14.5) % MPV (9.5-12.2) FL Immature Gran # (0.00-0.04) X 10*3/uL Neutrophils # (1.80-7.70) X 10*3/uL Monocytes # (0.20-1.00) X 10*3/uL Carbon Dioxide 36 H (22-30) mmol/L BUN 6 L (9.0-27.0) mg/dL BUN/Creatinine Ratio (12.00-20.00) Ratio Glucose 62 L (70-110) mg/dL POC Glucose (mg/dL) 67 L 67 L (70-110) mg/dL Calcium (8.7-10.3) mg/dL 01/03/25 Range/Units 06:07 WBC (4.50-10.00) X 10*3/uL RBC (4.40-5.60) X 10*6/uL Hgb (13.0-17.0) g/dL Hct (39.6-50.0) % MCHC (32.0-37.0) g/dL RDW (11.5-14.5) % MPV (9.5-12.2) FL Immature Gran # (0.00-0.04) X 10*3/uL Neutrophils # (1.80-7.70) X 10*3/uL Monocytes # (0.20-1.00) X 10*3/uL Carbon Dioxide (22-30) mmol/L BUN (9.0-27.0) mg/dL BUN/Creatinine Ratio (12.00-20.00) Ratio Glucose (70-110) mg/dL POC Glucose (mg/dL) 157 H (70-110) mg/dL Calcium (8.7-10.3) mg/dL Microbiology - Last 24 Hours (Table) 12/28/24 10:05 Blood Culture - Final Blood
[2025-01-03 18:48] LABS: Glucose,Whole Blood 256 mg/dL (70-110)
[2025-01-03] MEDS: INSULIN LISPRO (HumaLOG) 100 UNIT/ML 10 mL VL SQ SCH (18:57)
[2025-01-03 21:00] LABS: Glucose,Whole Blood 144 mg/dL (70-110)
[2025-01-03] MEDS: LABETALOL 100 MG TAB PO SCH (22:45)
[2025-01-04 06:11] LABS: Glucose,Whole Blood 181 mg/dL (70-110)
[2025-01-04] MEDS: VANCOMYCIN TROUGH DUE 1 EACH MISC MISCELLANE ONE (06:48)
[2025-01-04 07:13] LABS: Anisocytosis Slight; Basophils # (A) 0.1 k/uL (0-0.2); Basophils % (A) 0 %; Eosinophils # (A) 0.1 k/uL (0-0.7); Eosinophils % (A) 1 %; HCT 29.5 % (39.0-53.0); HGB 8.7 gm/dL (13.0-17.5); Hypochromasia Marked; Lymphocytes # (A) 2.2 k/uL (1.0-4.8); Lymphocytes % (A) 15 %; MCH 27.7 pg (25.0-35.0); MCHC 29.6 g/dL (31.0-37.0); MCV 93.6 fL (80.0-100.0); Mean Platelet Volume 8.2; Monocytes # (A) 0.7 k/uL (0-1.0); Monocytes % (A) 5 %; Neutrophils # (A) 11.1 k/uL (1.3-7.7); Neutrophils % (A) 76 %; Platelet Count 274 k/uL (150-450); RBC 3.15 m/uL (4.30-5.90); RDW 17.2 % (11.5-15.5); WBC 14.5 k/uL (3.8-10.6)
--- NOTE | 2025-01-04 07:20 | P.PN ---
Subjective Progress Note Date: 01/03/25 Principal diagnosis: Reason for follow-up is MRSA bacteremia pneumonia Patient is a 69-year-old -[place] male with a past medical history difficult for diabetes mellitus reflux hypertension pneumonia presenting to the hospital for evaluation of confusion and lethargy patient has been diagnosed with pneumonia blood cultures came back positive with MRSA prompted this con sultation. On today's evaluation that is 01/03/2025,the patient remains to be afebrile, patient is on 4 L, supplemental oxygen and denies any shortness of breath no chest pain and cough is decreased in intensity.Patient denies having any nausea or vomiting, no abdominal pain and no diarrhea has been reported. Patient was admitted on 8 17,000 creatinine 0.70 blood culture repeat has been negative MRI of the lumbar spine did not show any evidence of discitis or abscess Objective - Vital Signs Vital signs: Vital Signs Temp 97.8 F 01/03/25 07:33 Pulse 97 01/03/25 07:33 Resp 22 01/03/25 07:33 BP 150/72 01/03/25 07:33 Pulse Ox 100 01/03/25 07:33 FiO2 Intake & Output 01/02/25 01/03/25 01/03/25 18:59 06:59 18:59 Output Total 250 900 200 Balance -250 -900 -200 Weight 83 kg Output: Urine 250 900 200 Other: Voiding Method Bedside Commode Urinal # Voids 3 4 # Bowel Movements 2 1 1 - Exam GENERAL DESCRIPTION: An elderly male lying in bed in no distress RESPIRATORY SYSTEM: Unlabored breathing , decreased breath sounds at bases HEART: S1 S2 regular rate and rhythm , ABDOMEN: Soft , no tenderness EXTREMITIES: No edema feet - Labs CBC & Chem 7: 01/04/25 06:30 01/03/25 03:42 Labs: Abnormal Lab Results - Last 24 Hours (Table) 01/02/25 01/02/25 01/02/25 Range/Units 11:30 16:11 20:51 WBC (3.8-10.6) k/uL RBC (4.30-5.90) m/uL Hgb (13.0-17.5) gm/dL Hct (39.0-53.0) % MCHC (31.0-37.0) g/dL RDW (11.5-15.5) % Neutrophils # (1.3-7.7) k/uL Carbon Dioxide (22-30) mmol/L BUN (9-20) mg/dL Glucose (74-99) mg/dL POC Glucose (mg/dL) 281 H 266 H 112 H (70-110) mg/dL 01/03/25 01/03/25 01/03/25 Range/Units 03:42 03:42 04:50 WBC 17.0 H (3.8-10.6) k/uL RBC 2.97 L (4.30-5.90) m/uL Hgb 8.2 L D (13.0-17.5) gm/dL Hct 28.0 L (39.0-53.0) % MCHC 29.5 L (31.0-37.0) g/dL RDW 17.0 H (11.5-15.5) % Neutrophils # 13.7 H (1.3-7.7) k/uL Carbon Dioxide 36 H (22-30) mmol/L BUN 6 L (9-20) mg/dL Glucose 62 L (74-99) mg/dL POC Glucose (mg/dL) 67 L (70-110) mg/dL 01/03/25 01/03/25 Range/Units 05:15 06:07 WBC (3.8-10.6) k/uL RBC (4.30-5.90) m/uL Hgb (13.0-17.5) gm/dL Hct (39.0-53.0) % MCHC (31.0-37.0) g/dL RDW (11.5-15.5) % Neutrophils # (1.3-7.7) k/uL Carbon Dioxide (22-30) mmol/L BUN (9-20) mg/dL Glucose (74-99) mg/dL POC Glucose (mg/dL) 67 L 157 H (70-110) mg/dL Microbiology - Last 24 Hours (Table) 12/28/24 10:05 Blood Culture - Final Blood Assessment and Plan (1) MRSA bacteremia Current Visit: Yes Status: Acute Code(s): R78.81 - BACTEREMIA; B95.62 - METHICILLIN RESIS STAPH INFCT CAUSING DISEASES CLASSD [facility] SNOMED Code(s): 02121734303005162 (2) Pneumonia Current Visit: Yes Status: Acute Code(s): J18.9 - PNEUMONIA, UNSPECIFIED ORGANISM SNOMED Code(s): 144678416 (3) Sepsis Current Visit: Yes Status: Acute Code(s): A41.9 - SEPSIS, UNSPECIFIED ORGANISM SNOMED Code(s): 44374577 Plan: 1patient presented hospital with sepsis in this patient who did have fever tachycardia elevated white count meeting currently for SIRS source likely pneumonia now with evidence of MRSA bacteremia. 2patient with MRSA bacteremia source is likely pneumonia. 3blood culture has been repeated, which are negative so far. 4patient did have extensive workup including CT angiogram of the chest that was negative for PE did not show any empyema MRI of the cervical spine did not show any evidence of epidural abscess or discitis, patient did have a echocardiogram did show normal cardiac valve with only 1 positive blood culture clinical and behaving as endocarditis, however elevated white count still of concern patient also have a MRSA advised on the did not show any epidural abscess or discitis CT angiogram of the chest did not mention abnormality to the thoracic spine patient is status post MRI of the lumbar spine did not show any evidence of discitis or abscess. 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 please excuse any grammatical, word or spelling errors. Time with Patient: Less than 30
[2025-01-04 07:32] LABS: African American GFR (CKD) >90 (>60 ml/min/1.73 sqM); Anion Gap 6 mmol/L; Blood Urea Nitrogen 6 mg/dL (9-20); Calcium 8.9 mg/dL (8.4-10.2); Carbon Dioxide 37 mmol/L (22-30); Chloride 95 mmol/L (98-107); Glucose 139 mg/dL (74-99); Non-African American GFR(CKD) >90 (>60 ml/min/1.73 sqM); Potassium 3.8 mmol/L (3.5-5.1); Sodium 138 mmol/L (137-145)
[2025-01-04 07:33] VITALS: RESP 20
--- NOTE | 2025-01-04 10:56 | P.PN ---
Subjective Patient is seen in follow-up for acute kidney injury. GFR at baseline. Tolerating oral intake. Admits to good urine output. No active complaints. Now has PICC line. Vital signs are stable. General: No acute distress. HEENT: Head exam is unremarkable. On nasal cannula. LUNGS: No audible rhonchi or wheezes. HEART: Rate and Rhythm are regular. ABDOMEN: Nontender. EXTREMITITES: No edema. Objective - Vital Signs Vital signs: Vital Signs Temp 98.4 F 01/04/25 06:58 Pulse 94 01/04/25 06:58 Resp 20 01/04/25 06:58 BP 153/79 01/04/25 06:58 Pulse Ox 100 01/04/25 06:58 FiO2 Intake & Output 01/03/25 01/04/25 01/04/25 18:59 06:59 18:59 Output Total 200 Balance -200 Weight 81.5 kg Output: Urine 200 Other: Voiding Method Bedside Commode Urinal # Voids 2 3 # Bowel Movements 1 1 - Labs CBC & Chem 7: 01/04/25 06:30 01/04/25 06:30 Labs: Abnormal Lab Results - Last 24 Hours (Table) 01/03/25 01/03/25 01/03/25 Range/Units 12:07 18:47 20:59 WBC (3.8-10.6) k/uL RBC (4.30-5.90) m/uL Hgb (13.0-17.5) gm/dL Hct (39.0-53.0) % MCHC (31.0-37.0) g/dL RDW (11.5-15.5) % Neutrophils # (1.3-7.7) k/uL Chloride (98-107) mmol/L Carbon Dioxide (22-30) mmol/L BUN (9-20) mg/dL Glucose (74-99) mg/dL POC Glucose (mg/dL) 119 H 256 H 144 H (70-110) mg/dL 01/04/25 01/04/25 01/04/25 Range/Units 06:09 06:30 06:30 WBC 14.5 H (3.8-10.6) k/uL RBC 3.15 L (4.30-5.90) m/uL Hgb 8.7 L (13.0-17.5) gm/dL Hct 29.5 L (39.0-53.0) % MCHC 29.6 L (31.0-37.0) g/dL RDW 17.2 H (11.5-15.5) % Neutrophils # 11.1 H (1.3-7.7) k/uL Chloride 95 L (98-107) mmol/L Carbon Dioxide 37 H (22-30) mmol/L BUN 6 L (9-20) mg/dL Glucose 139 H (74-99) mg/dL POC Glucose (mg/dL) 181 H (70-110) mg/dL Microbiology - Last 24 Hours (Table) 12/29/24 03:56 Blood Culture - Final Blood Assessment and Plan Plan: Assessment: 1. Acute kidney injury secondary to vasomotor nephropathy secondary to hypovolemia and hypotension. Resolved. 2. Metabolic encephalopathy secondary to HHNK. Improved. 3. Hypertonic hyponatremia secondary to hyperglycemia. Resolved. 4. Diabetes mellitus. 5. Metabolic acidosis secondary to acute kidney injury and HHNK. Resolved. 6. Hypomagnesemia from poor intake. On oral magnesium oxide. Stable. Plan: Encouraged oral intake. Replace electrolytes as needed. Stable for discharge from nephrology standpoint. Follow-up outpatient 2 weeks postdischarge
--- NOTE | 2025-01-04 11:22 | P.DS ---
Providers Date of admission: 12/25/24 21:22 Expected date of discharge: 01/04/25 Attending physician: Chinedu Brothers MD Consults: 12/25/24 21:22 Consult Physician Routine Consulting Provider: Angeline Mcgraw Consult Reason/Comments: LATOYA, hyperkalemia Do you want consulting provider notified?: Yes Consult Physician Stat Consulting Provider: Juancarlos Kraft Consult Reason/Comments: ICU care Do you want consulting provider notified?: Already Contacted 12/28/24 09:50 Consult Physician Routine Consulting Provider: Kenn Bansal Consult Reason/Comments: MRSA bacteremia Do you want consulting provider notified?: Yes Primary care physician: Physician Nonstaff Hospital Course: Hospital Course: Is a 69-year-old male with past medical history of DM, HHS admissions, recurrent UTIs, history of substance use, history of carotid artery stenosis, COPD, interstitial lung disease, chronic thrombocytopenia secondary to alcoholism, C. difficile colitis November 2024, esophageal varices. Presented to the ER on 12/25, patient poor historian. Patient history obtained from . She reported that patient has not been eating a full meal since the and has not been taking his medications properly. Since then he has been having worsening shortness of breath, generalized weakness and confusion. He was also noted to be very dry and looks like he had a lot of weight loss. She noted that he had a nonproductive cough, and diarrhea. There was no noted fever, chest pain, changes in urination, extremity swelling, facial asymmetry, changes in speech, changes in vision, recent illness, or recent travel. On admission, brain CT showed no acute intracranial process. Chest x-ray showed multifocal airspace opacities to correlate for pneumonia and to exclude pulmonary edema. Labs on admission showed WBC 25, hemoglobin 10.6, MCV 99.9, platelet count 266,000, PT 11.6, INR 1.1, PTT 28.3, sodium 128, potassium 7.7, chloride 103, bicarb 14, BUN 43, creatinine 2.3, glucose 951, lactic acid 2.5, calcium 9.2, magnesium 1.4, total bilirubin 0.7, AST 17, ALT 17, alk phos 136, ammonia less than 9, albumin 2.7. Acetone negative. Cepheid 4 negative. VBG pH 7.21, pCO2 42, bicarb 17. Patient was admitted for acute metabolic encephalopathy, HHS, hyperkalemic emergency, started on insulin drip, nephrology consulted, MISHA inhibitor on hold. He was started on azithromycin and ceftriaxone for possible community-acquired pneumonia. Insulin drip was discontinued on 12/27, patient was switched to basal bolus with Levemir 20 nightly, mealtime Humalog 8 units and sliding scale insulin, continued on IV fluids, kidney function is improving, nephrology following. TTE showed no acute abnormalities, normal EF. blood cx positive for MRSA, patient was switched to vancomycin SOT 12/27.ID consulted and ordered repeat blood cultures, cervical spine MRI and lumbar spine MRI. Blood culture returned negative. Cervical spine MRI showed no evidence of epidural abscess, abnormal postcontrast enhancement, or disc herniation or significant spinal stenosis. Lumbar MRI showed multilevel degenerative changes in the mid to lower lumbar spine but no suspicious enhancement seen. PICC line placed for planned outpatient IV antibiotics. P.o. antifungal advised per ID. Social work consulted, PT OT consulted, patient has history of medications noncompliance. Overall mental status improved over course of hospital stay. Kidney function improved throughout hospital stay and labetalol and MISHA inhibitor was restarted. Discharge needs met today and will be discharged on home health services. Patient prescribed magnesium oxide, Diflucan p.o. and IV vancomycin. Advised patient to continue home insulin, potassium tablets, Protonix, DuoNebs, labetalol, lisinopril, and folic acid. Patient advised to follow-up with home MD for home health, PCP on outpatient basis. He will receive his IV antibiotics through an our infusion center. Final Diagnosis: #. Acute hypoxic respiratory failure secondary to community-acquired pneumonia #. MRSA Bacteremia #. Acute metabolic encephalopathy secondary to HHS, resolved #. HHS #. Type 2 diabetes #. LATOYA secondary to volume depletion, ATN, nonoliguric, resolved #. Normocytic anemia, likely from chronic disease #. Hyperkalemia #. Hypomagnesemia, resolved #. GERD #. Hypertension #. Depression #. History of C. difficile Physical examination: Vital signs reviewed General: non toxic, no distress, appears at stated age, on nasal cannula Derm: no unusual rashes/lesions, warm Head: atraumatic, normocephalic, symmetric Eyes: EOMI, anicteric sclera, pupils equal round reactive to light ENT: Nose and ears atraumatic Neck: No cervical lymphadenopathy, trachea midline, supple Mouth: no lip lesion, mucus membranes moist Cardiovascular: S1S2 reg, no murmur Lungs: CTA bilateral, no rhonchi, no rales, no accessory muscle use Abdominal: soft, nontender to palpation, no guarding Ext: muscle strength 5 out of 5 in all 4 extremities grossly, no gross muscle atrophy, no contractures, positive dorsalis pedis pulse bilateral, no edema Neuro: CN II-XI grossly intact, no gross focal neuro deficits Psych: Alert and oriented x3, appropriate affect and mood A total of 36 minutes of time were spent preparing this complex discharge summary. Patient was discharged on 01/04/2025 at 941. I have seen and evaluated the patient today. Discussed with the resident and agree with the residents finding and plan as documented in the resident's note. Changes highlighted in blue font. Patient Condition at Discharge: Stable Plan - Discharge Summary Discharge Rx Participant: Yes New Discharge Prescriptions: New Magnesium Oxide [Mag-Ox] 400 mg PO DAILY #90 tab Vancomycin 1,500 mg IVPB Q12H #28 each Fluconazole [Diflucan] 100 mg PO DAILY #7 tab Continue Insulin Glargine,Hum.rec.anlog [Insulin Glargine Solostar] 20 unit SQ DAILY Potassium Chloride ER [K-Dur 20] 40 meq PO DAILY Pantoprazole [Protonix] 40 mg PO BID Ipratropium-Albuterol Nebulize [Duoneb 0.5 mg-3 mg/3 ml Soln] 3 ml INHALATION RT-QID PRN PRN Reason: Shortness Of Breath Labetalol [Trandate] 100 mg PO TID@,,21 lisinopriL [Zestril] 5 mg PO DAILY Folic Acid 1 mg PO DAILY Insulin Lispro [Insulin Lispro Kwikpen U-100] 4 unit SQ TID-W/MEALS Discharge Medication List Folic Acid 1 mg PO DAILY 12/25/24 [History] Insulin Glargine,Hum.rec.anlog [Insulin Glargine Solostar] 20 unit SQ DAILY 12/25/24 [History] Insulin Lispro [Insulin Lispro Kwikpen U-100] 4 unit SQ TID-W/MEALS 12/25/24 [History] Ipratropium-Albuterol Nebulize [Duoneb 0.5 mg-3 mg/3 ml Soln] 3 ml INHALATION RT-QID PRN 12/25/24 [History] Labetalol [Trandate] 100 mg PO TID@09,13,21 12/25/24 [History] Pantoprazole [Protonix] 40 mg PO BID 12/25/24 [History] Potassium Chloride ER [K-Dur 20] 40 meq PO DAILY 12/25/24 [History] lisinopriL [Zestril] 5 mg PO DAILY 12/25/24 [History] Fluconazole [Diflucan] 100 mg PO DAILY #7 tab 01/04/25 [Rx] Magnesium Oxide [Mag-Ox] 400 mg PO DAILY #90 tab 01/04/25 [Rx] Vancomycin 1,500 mg IVPB Q12H #28 each 01/04/25 [Rx] Follow up Appointment(s)/Referral(s): [facility] [NON-STAFF] - As Needed (diabetic supplies and walker) [facility] [REFERRING] - As Needed [facility] [NON-STAFF] - As Needed Kenn Bansal MD [STAFF PHYSICIAN] - 1 Week (office closed at time of discharge Please call to schedule appointment ) & Angelica Aviles Procedures [REFERRING] - 01/05/25 9:00 am (Please be to [facility] tomorrow and Tuesday by 9am, Tuesday will be 7:45am for IV antibiotic administration.) Patient Instructions/Handouts: Acute Kidney Injury (DC), Bacterial Pneumonia (DC), Hypomagnesemia (DC), Anemia (DC), Type 2 Diabetes in the Older Adult (DC) Activity/Diet/Wound Care/Special Instructions: See your PCP outpatient Discharge Disposition: HOME WITH HOME HEALTH SERVICES
[2025-01-04 11:32] LABS: Glucose,Whole Blood 219 mg/dL (70-110)
[2025-01-04 14:21] VITALS: BP 157/76; PULSE 99; TEMP 98.6
--- NOTE | 2025-01-04 14:51 | P.PN ---
Subjective Progress Note Date: 01/04/25 Principal diagnosis: Reason for follow-up is MRSA bacteremia pneumonia Patient is a 69-year-old -[place] male with a past medical history difficult for diabetes mellitus reflux hypertension pneumonia presenting to the hospital for evaluation of confusion and lethargy patient has been diagnosed with pneumonia blood cultures came back positive with MRSA prompted this con sultation. On today's evaluation that is 01/04/2025, the patient continues to be afebrile, the patient is on 4 L nasal oxygen and breathing comfortably, the Pt denies having any chest pain or any worsening cough, the patient denies having any abdominal pain no vomiting or any diarrhea. Patient white blood count 14.5 creatinine 0.76 Vanco trough is 18.5 blood culture repeat negative Objective - Vital Signs Vital signs: Vital Signs Temp 98.4 F 01/04/25 06:58 Pulse 94 01/04/25 06:58 Resp 20 01/04/25 06:58 BP 153/79 01/04/25 06:58 Pulse Ox 100 01/04/25 06:58 FiO2 Intake & Output 01/03/25 01/04/25 01/04/25 18:59 06:59 18:59 Output Total 200 100 Balance -200 -100 Weight 81.5 kg Output: Urine 200 100 Other: Voiding Method Bedside Commode Urinal # Voids 2 3 # Bowel Movements 1 1 3 - Exam GENERAL DESCRIPTION: An elderly male lying in bed in no distress RESPIRATORY SYSTEM: Unlabored breathing , decreased breath sounds at bases HEART: S1 S2 regular rate and rhythm , ABDOMEN: Soft , no tenderness EXTREMITIES: No edema feet - Labs CBC & Chem 7: 01/04/25 06:30 01/04/25 06:30 Labs: Abnormal Lab Results - Last 24 Hours (Table) 01/03/25 01/03/25 01/03/25 Range/Units 12:07 18:47 20:59 WBC (3.8-10.6) k/uL RBC (4.30-5.90) m/uL Hgb (13.0-17.5) gm/dL Hct (39.0-53.0) % MCHC (31.0-37.0) g/dL RDW (11.5-15.5) % Neutrophils # (1.3-7.7) k/uL Chloride (98-107) mmol/L Carbon Dioxide (22-30) mmol/L BUN (9-20) mg/dL Glucose (74-99) mg/dL POC Glucose (mg/dL) 119 H 256 H 144 H (70-110) mg/dL 01/04/25 01/04/25 01/04/25 Range/Units 06:09 06:30 06:30 WBC 14.5 H (3.8-10.6) k/uL RBC 3.15 L (4.30-5.90) m/uL Hgb 8.7 L (13.0-17.5) gm/dL Hct 29.5 L (39.0-53.0) % MCHC 29.6 L (31.0-37.0) g/dL RDW 17.2 H (11.5-15.5) % Neutrophils # 11.1 H (1.3-7.7) k/uL Chloride 95 L (98-107) mmol/L Carbon Dioxide 37 H (22-30) mmol/L BUN 6 L (9-20) mg/dL Glucose 139 H (74-99) mg/dL POC Glucose (mg/dL) 181 H (70-110) mg/dL 01/04/25 Range/Units 11:29 WBC (3.8-10.6) k/uL RBC (4.30-5.90) m/uL Hgb (13.0-17.5) gm/dL Hct (39.0-53.0) % MCHC (31.0-37.0) g/dL RDW (11.5-15.5) % Neutrophils # (1.3-7.7) k/uL Chloride (98-107) mmol/L Carbon Dioxide (22-30) mmol/L BUN (9-20) mg/dL Glucose (74-99) mg/dL POC Glucose (mg/dL) 219 H (70-110) mg/dL Microbiology - Last 24 Hours (Table) 12/29/24 03:56 Blood Culture - Final Blood Assessment and Plan (1) MRSA bacteremia Current Visit: Yes Status: Acute Code(s): R78.81 - BACTEREMIA; B95.62 - METHICILLIN RESIS STAPH INFCT CAUSING DISEASES CL[facility]SD [facility] SNOMED Code(s): 98011524005039011 (2) Pneumonia Current Visit: Yes Status: Acute Code(s): J18.9 - PNEUMONIA, UNSPECIFIED ORGANISM SNOMED Code(s): 130273628 (3) Sepsis Current Visit: Yes Status: Acute Code(s): A41.9 - SEPSIS, UNSPECIFIED ORGANISM SNOMED Code(s): 17262387 Plan: 1patient presented hospital with sepsis in this patient who did have fever tachycardia elevated white count meeting currently for SIRS source likely pneumonia now with evidence of MRSA bacteremia. 2patient with MRSA bacteremia source is likely pneumonia. 3blood culture has been repeated, which are negative so far. 4patient did have extensive workup including CT angiogram of the chest that was negative for PE did not show any empyema MRI of the cervical spine did not show any evidence of epidural abscess or discitis, patient did have a echocardiogram did show normal cardiac valve with only 1 positive blood culture clinical and behaving as endocarditis, however elevated white count still of concern patient also have a MRSA advised on the did not show any epidural abscess or discitis CT angiogram of the chest did not mention abnormality to the thoracic spine patient is status post MRI of the lumbar spine did not show any evidence of discitis or abscess. 5patient vancomycin level is therapeutic creatinine is normal plan is to continue with IV vancomycin pharmacy to dose x 2 weeks along with a week of oral Diflucan on discharge and close outpatient follow-up Dictation was produced using [employer] dictation software. please excuse any grammatical, word or spelling errors.
== END 2025-01-04 15:39 | disposition home health service (06) | DRG 871 ==
LOC: EC 18:23 → 2SICU 21:22 → 4SSUR 12-27 14:54
PROVIDERS: ADMIT Internal Medicine; ATTEND Internal Medicine
PROC: B5181ZA Fluoroscopy of Superior Vena Cava using Low Osmolar Contrast, Guidance (ICD-10-PCS; 2025-01-03)
PROC: B548ZZA Ultrasonography of Superior Vena Cava, Guidance (ICD-10-PCS; 2025-01-03)
PROC: 02HV33Z Insertion of Infusion Device into Superior Vena Cava, Percutaneous Approach (ICD-10-PCS; principal; 2025-01-03 11:00)
DX: A41.02 Sepsis due to Methicillin resistant Staphylococcus aureus (principal); E11.00 Type 2 diabetes mellitus with hyperosmolarity without nonketotic hyperglycemic-hyperosmolar coma (NKHHC); G93.41 Metabolic encephalopathy; J96.01 Acute respiratory failure with hypoxia; N17.0 Acute kidney failure with tubular necrosis; J15.212 Pneumonia due to Methicillin resistant Staphylococcus aureus; E87.5 Hyperkalemia; D63.8 Anemia in other chronic diseases classified elsewhere; E86.0 Dehydration; E11.22 Type 2 diabetes mellitus with diabetic chronic kidney disease; I12.9 Hypertensive chronic kidney disease with stage 1 through stage 4 chronic kidney disease, or unspecified chronic kidney disease; F32.A Depression, unspecified; D69.59 Other secondary thrombocytopenia; N18.9 Chronic kidney disease, unspecified; E87.1 Hypo-osmolality and hyponatremia; J84.10 Pulmonary fibrosis, unspecified; Z79.4 Long term (current) use of insulin; Z11.52 Encounter for screening for COVID-19; K21.9 Gastro-esophageal reflux disease without esophagitis; E83.42 Hypomagnesemia; E86.1 Hypovolemia; Z79.899 Other long term (current) drug therapy; Z86.19 Personal history of other infectious and parasitic diseases; Z87.891 Personal history of nicotine dependence; Z91.148 Patient's other noncompliance with medication regimen for other reason; Z91.199 Patient's noncompliance with other medical treatment and regimen due to unspecified reason; Z88.5 Allergy status to narcotic agent; Z87.19 Personal history of other diseases of the digestive system; Z87.440 Personal history of urinary (tract) infections
CPT/HCPCS: 36415; 36573; 51702; 70450; 71045; 71046; 71275; 72156; 72158; 80048; 80051; 80053; 80202; 80306; 81001; 82009; 82140; 82565; 82803; 82947; 83605; 83735; 83880; 83930; 84100; 84145; 84520; 85025; 85379; 85610; 85730; 86140; 87040; 87077; 87186; 87449; 87636; 93005; 93306; 96361; 96365; 96366; 96367; 96368; 96372; 96375; 99291

== ENCOUNTER 2025-01-11 15:33 | Emergency (ER) | payer MEDICARE ==
[2025-01-11 15:42] LABS: Glucose,Whole Blood 397 mg/dL (70-110)
--- NOTE | 2025-01-11 16:33 | ED ---
General Adult HPI - General Chief complaint: Recheck/Abnormal Lab/Rx Stated complaint: Hyperglycemia Time Seen by Provider: 01/11/25 16:18 Source: patient Mode of arrival: ambulatory Limitations: no limitations - History of Present Illness Initial comments: Dictation was produced using [employer] dictation software. please excuse any grammatical, word or spelling errors. Chief Complaint: 69-year-old male with hyperglycemia History of Present Illness: Patient 69-year-old male with history of diabetes presents to the ER for hyperglycemia patient is a diabetic takes diabetes medications. States that he is insulin-dependent. He had a home visiting baljit harp checked his sugar and found it was high around 500. Still to come to the ER for further care. Patient does not have any other complaints. The ROS documented in this emergency department record has been reviewed and confirmed by me. Those systems with pertinent positive or negative responses have been documented in the HPI. All other systems are other negative and/or noncontributory. - Related Data Home Medications Medication Instructions Recorded Confirmed Folic Acid 1 mg PO DAILY 12/25/24 01/11/25 Insulin Glargine,Hum.rec.anlog 20 unit SQ DAILY 12/25/24 01/11/25 [Insulin Glargine Solostar] Insulin Lispro [Insulin Lispro 4 unit SQ TID-W/MEALS 12/25/24 01/11/25 Kwikpen U-100] Ipratropium-Albuterol Nebulize 3 ml INHALATION RT-QID PRN 12/25/24 01/11/25 [Duoneb 0.5 mg-3 mg/3 ml Soln] Labetalol [Trandate] 100 mg PO TID@09,13,21 12/25/24 01/11/25 Pantoprazole [Protonix] 40 mg PO BID 12/25/24 01/11/25 Potassium Chloride ER [K-Dur 20] 40 meq PO DAILY 12/25/24 01/11/25 lisinopriL [Zestril] 5 mg PO DAILY 12/25/24 01/11/25 Vancomycin Enema [Vancomycin] 2,250 mg IV DAILY 01/09/25 01/11/25 Previous Rx's Medication Instructions Recorded Fluconazole [Diflucan] 100 mg PO DAILY #7 tab 01/04/25 Magnesium Oxide [Mag-Ox] 400 mg PO DAILY #90 tab 01/04/25 Allergies Allergy/AdvReac Type Severity Reaction Status Date / Time morphine Allergy Unknown Itching Verified 01/11/25 15:38 tramadol Allergy Unknown Itching Verified 01/11/25 15:38 Review of Systems ROS Statement: Those systems with pertinent positive or pertinent negative responses have been documented in the HPI. ROS Other: All systems not noted in ROS Statement are negative. Past Medical History Past Medical History: Chest Pain / Angina, Diabetes Mellitus, GERD/Reflux, GI Bleed, Hypertension, Pneumonia Additional Past Medical History / Comment(s): BACK PAIN, POSITIVE FOR BLOOD IN STOOL., SLIGHT POARCH. History of Any Multi-Drug Resistant Organisms: MRSA Date of last positivie culture/infection: 12/25/24 MDRO Source:: blood Past Surgical History: Hernia Repair Additional Past Surgical History / Comment(s): NASAL SURGERY, RT ANKLE PINS & SCREWS. Past Anesthesia/Blood Transfusion Reactions: No Reported Reaction Past Psychological History: Depression Smoking Status: Former smoker Past Alcohol Use History: None Reported Past Drug Use History: None Reported - Past Family History Mother Family Medical History: No Reported History General Exam - General Exam Comments Initial Comments: PHYSICAL EXAM: General Impression: Alert and oriented x3, not in acute distress HEENT: Normocephalic atraumatic, extra-ocular movements intact, pupils equal and reactive to light bilaterally, mucous membranes moist. Cardiovascular: Heart regular rate and rhythm Chest: Able to complete full sentences, no retractions, no tachypnea Abdomen: abdomen soft, non-tender, non-distended, no organomegaly Musculoskeletal: Pulses present and equal in all extremities, no peripheral edema Motor: no focal deficits noted Neurological: CN II-XII grossly intact, no focal motor or sensory deficits noted Skin: Intact with no visualized rashes Psych: Normal affect and mood Limitations: no limitations Course Vital Signs 01/11/25 01/11/25 15:36 18:05 Temperature 98.5 F 98.6 F Pulse Rate 106 H 97 Respiratory 20 22 Rate Blood Pressure 137/76 144/93 O2 Sat by Pulse 94 L 99 Oximetry Medical Decision Making - Medical Decision Making Was pt. sent in by a medical professional or institution (, PA, AIRPORT SHUTTLE DRIVER, urgent care, hospital, or intermediate...) When possible be specific @ -No Did you speak to anyone other than the patient for history (EMS, parent, family, police, friend...)? What history was obtained from this source @ -No Did you review nursing and triage notes (agree or disagree)? Why? @ -I reviewed and agree with nursing and triage notes Were old charts reviewed (outside hosp., previous admission, EMS record, old EKG, old radiological studies, urgent care reports/EKG's, intermediate records)? Report findings @ -No old charts were reviewed Differential Diagnosis (chest pain, altered mental status, abdominal pain women, abdominal pain men, vaginal bleeding, musculoskeletal, weakness, fever, dyspnea, syncope, headache, dizziness, GI bleed, back pain, seizure, CVA, palpatations, mental health)? @ -Hyperglycemia, DKA, [facility] EKG interpreted by me (3pts min.). @ -None done X-rays interpreted by me (1pt min.). @ -None done CT interpreted by me (1pt min.). @ -None done U/S interpreted by me (1pt. min.). @ -None done What testing was considered but not performed or refused? (CT, X-rays, U/S, labs)? Why? @ -None What meds were considered but not given or refused? Why? @ -None Was smoking cessation discussed for >3mins.? @ -No Were there social determinants of health that impacted care today? How? (Homele ssness, low income, unemployed, alcoholism, drug addiction, transportation, low edu. Level, literacy, decrease access to med. care, fci, rehab)? @ -No Was there de-escalation of care discussed even if they declined (Discuss DNR or withdrawal of care, Hospice)? DNR status @ -No What co-morbidities impacted this encounter? (DM, HTN, Smoking, COPD, CAD, Cancer, CVA, ARF, Chemo, Hep., AIDS, mental health diagnosis, sleep apnea, morbid obesity)? @ -Diabetes Was patient admitted / discharged? Hospital course, mention meds given and route, prescriptions, significant lab abnormalities, going to OR and other pertinent info. @ -69-year-old male presents to the emergency department with hyperglycemia. Vital signs stable. Patient well-appearing. Laboratory evaluation obtained. Labs within acceptable limits. Blood glucose is 397. Patient given IV fluids and doses of insulin with blood sugar improved to 244. Patient has no high risk features will be discharged. Did you discuss the management of the patient with other professionals (professionals i.e. , PA, AIRPORT SHUTTLE DRIVER, lab, RT, psych nurse, director social welfare, consignee, teacher, biological technical officer, case management rn)? Give summary @ -No Was critical care preformed (if so, how long)? @ -No Undiagnosed new problem with uncertain prognosis? @ -No Drug Therapy requiring intensive monitoring for toxicity (Heparin, Nitro, Insulin, Cardizem)? @ -No Were any procedures done? @ -No Diagnosis/symptom? Acute, or Chronic, or Acute on Chronic? Uncomplicated (without systemic symptoms) or Complicated (systemic symptoms)? @ -Hyperglycemia Side effects of treatment? @ -No Exacerbation, Progression, or Severe Exacerbation? @ -No Poses a threat to life or bodily function? How? (Chest pain, [place], AR, pneumonia, PE, COPD, DKA, ARF, appy, cholecystitis, CVA, Diverticulitis, Homicidal, Suicidal, threat to staff... and all critical care pts) @ -No - Lab Data Result diagrams: 01/11/25 16:41 01/11/25 16:41 Lab Results 01/11/25 01/11/25 01/11/25 Range/Units 15:40 16:41 16:41 WBC 12.1 H (3.8-10.6) k/uL RBC 3.48 L (4.30-5.90) m/uL Hgb 9.9 L (13.0-17.5) gm/dL Hct 32.8 L (39.0-53.0) % MCV 94.1 (80.0-100.0) fL MCH 28.4 (25.0-35.0) pg MCHC 30.2 L (31.0-37.0) g/dL RDW 18.4 H (11.5-15.5) % Plt Count 225 (150-450) k/uL MPV 8.4 Neutrophils % 71 % Lymphocytes % 17 % Monocytes % 5 % Eosinophils % 3 % Basophils % 0 % Neutrophils # 8.6 H (1.3-7.7) k/uL Lymphocytes # 2.0 (1.0-4.8) k/uL Monocytes # 0.7 (0-1.0) k/uL Eosinophils # 0.3 (0-0.7) k/uL Basophils # 0.1 (0-0.2) k/uL Hypochromasia Marked Anisocytosis Slight Macrocytosis Slight Sodium 133 L (137-145) mmol/L Potassium 4.3 (3.5-5.1) mmol/L Chloride 93 L (98-107) mmol/L Carbon Dioxide 35 H (22-30) mmol/L Anion Gap 5 mmol/L BUN 8 L (9-20) mg/dL Creatinine 0.87 (0.66-1.25) mg/dL Est GFR (CKD-EPI)AfAm >90 (>60 ml/min/1.73 sqM) Est GFR (CKD-EPI)NonAf 88 (>60 ml/min/1.73 sqM) Glucose 404 H (74-99) mg/dL POC Glucose (mg/dL) 397 H (70-110) mg/dL POC Glu Customs Compliance Specialist ID Wilfredo Doyle Calcium 9.1 (8.4-10.2) mg/dL 01/11/25 Range/Units 18:17 WBC (3.8-10.6) k/uL RBC (4.30-5.90) m/uL Hgb (13.0-17.5) gm/dL Hct (39.0-53.0) % MCV (80.0-100.0) fL MCH (25.0-35.0) pg MCHC (31.0-37.0) g/dL RDW (11.5-15.5) % Plt Count (150-450) k/uL MPV Neutrophils % % Lymphocytes % % Monocytes % % Eosinophils % % Basophils % % Neutrophils # (1.3-7.7) k/uL Lymphocytes # (1.0-4.8) k/uL Monocytes # (0-1.0) k/uL Eosinophils # (0-0.7) k/uL Basophils # (0-0.2) k/uL Hypochromasia Anisocytosis Macrocytosis Sodium (137-145) mmol/L Potassium (3.5-5.1) mmol/L Chloride (98-107) mmol/L Carbon Dioxide (22-30) mmol/L Anion Gap mmol/L BUN (9-20) mg/dL Creatinine (0.66-1.25) mg/dL Est GFR (CKD-EPI)AfAm (>60 ml/min/1.73 sqM) Est GFR (CKD-EPI)NonAf (>60 ml/min/1.73 sqM) Glucose (74-99) mg/dL POC Glucose (mg/dL) 347 H (70-110) mg/dL POC Glu Customs Compliance Specialist ID Alistair Rivero Calcium (8.4-10.2) mg/dL Disposition Clinical Impression: Hyperglycemia Disposition: HOME SELF-CARE Condition: Fair Instructions (If sedation given, give patient instructions): Diabetic Hyperglycemia (ED) Is patient prescribed a controlled substance at d/c from ED?: No Referrals: None,Stated [Primary Care Provider] - 1-2 days Time of Disposition: 19:26
[2025-01-11] MEDS: SODIUM CHLORIDE 0.9% 1,000 ML IV STA (16:35)
[2025-01-11 16:50] LABS: Anisocytosis Slight; Basophils # (A) 0.1 k/uL (0-0.2); Basophils % (A) 0 %; Eosinophils # (A) 0.3 k/uL (0-0.7); Eosinophils % (A) 3 %; HCT 32.8 % (39.0-53.0); HGB 9.9 gm/dL (13.0-17.5); Hypochromasia Marked; Lymphocytes % (A) 17 %; MCH 28.4 pg (25.0-35.0); MCHC 30.2 g/dL (31.0-37.0); MCV 94.1 fL (80.0-100.0); Macrocytosis Slight; Mean Platelet Volume 8.4; Monocytes # (A) 0.7 k/uL (0-1.0); Monocytes % (A) 5 %; Neutrophils # (A) 8.6 k/uL (1.3-7.7); Neutrophils % (A) 71 %; Platelet Count 225 k/uL (150-450); RBC 3.48 m/uL (4.30-5.90); RDW 18.4 % (11.5-15.5); WBC 12.1 k/uL (3.8-10.6)
[2025-01-11 17:15] LABS: African American GFR (CKD) >90 (>60 ml/min/1.73 sqM); Anion Gap 5 mmol/L; Blood Urea Nitrogen 8 mg/dL (9-20); Calcium 9.1 mg/dL (8.4-10.2); Carbon Dioxide 35 mmol/L (22-30); Chloride 93 mmol/L (98-107); Glucose 404 mg/dL (74-99); Non-African American GFR(CKD) 88 (>60 ml/min/1.73 sqM); Potassium 4.3 mmol/L (3.5-5.1); Sodium 133 mmol/L (137-145)
[2025-01-11 18:19] LABS: Glucose,Whole Blood 347 mg/dL (70-110)
[2025-01-11 18:27] VITALS: TEMP 98.6
[2025-01-11] MEDS: INSULIN REGULAR 100 UNIT/ML VIAL (IV) IV ONE ×2 (18:33→19:35)
[2025-01-11 19:48] VITALS: BP 140/84; PULSE 111; RESP 18
== END 2025-01-11 19:48 | disposition home or self-care (01) ==
LOC: EC 15:33
DX: E11.65 Type 2 diabetes mellitus with hyperglycemia (principal); Z87.891 Personal history of nicotine dependence
CPT/HCPCS: 36415; 80048; 85025; 96360; 99284